=== PATIENT | male | born 1985 | race Hispanic/Latino ===

== ENCOUNTER 2018-02-07 13:17 | Emergency (ER) | payer OTHER ==
--- NOTE | 2018-02-07 14:54 | RAD REPORT ---
EXAM DESCRIPTION: CT - Head Brain Wo Cont - 02/07/2018 2:26 pm CLINICAL HISTORY: Multiple seizures, seizure history, trauma COMPARISON: CT head April 2015 MRI June 2016 TECHNIQUE: Axial 5 mm thick images of the head were obtained without IV contrast. All CT scans are performed using dose optimization technique as appropriate and may include automated exposure control or mA/KV adjustment according to patient size. FINDINGS: No intracranial hemorrhage, mass, edema or shift of mid-line structures. No acute infarcti on changes. No cortical edema or sulcal effacement. 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 N o ventriculomegaly. Posttraumatic, developmental or ischemic changes cause cerebellum volume loss. Th is is a stable pattern. Mastoid air cells and visualized portions of the paranasal sinuses are clear. No acute bony findings. IMPRESSION: No acute intracranial finding. The above detailed findings are similar to June 2016.
--- NOTE | 2018-02-07 15:01 | ER ---
Nurse's Notes [facility] Name: Shan Faye Age: 32 yrs Sex: Male : 1985 Arrival Date: 02/07/2018 Time: 13:19 Bed 4 Private MD: Diagnosis: Epilepsy and recurrent seizures Presentation: 02/07 13:19 Presenting complaint: EMS states: pt was at work had multiple seizures, he did have a tw2 seizure when we got him, they are very violent seizures, no postictal phase, Keppra was just upped last week, mother should be on the way here shortly, vs stable. Transition of care: patient was not received from another setting of care. Onset of symptoms was February 07, 2018. Initial Sepsis Screen: Does the patient meet any 2 criteria? No. Patient's initial sepsis screen is negative. Does the patient have a suspected source of infection? No. Patient's initial sepsis screen is negative. Care prior to arrival: IV initiated. 20 GA, in the left antecubital area. 13:19 Method Of Arrival: EMS: [facility] tw2 13:19 Acuity: PAULINE 3 tw2 Historical: - Allergies: 13:23 No Known Drug Allergies; tw2 - Home Meds: 13:23 buspirone 5 mg Oral tab 1 tab 3 times per day [Active]; citalopram 10 mg tab 1 tab once tw2 daily [Active]; divalproex 500 mg Oral Tb24 2 tabs once daily [Active]; olanzapine 5 mg Oral TbDL 2 tabs once daily [Active]; - PMHx: 13:23 Anxiety; BRAIN DISORDER, ONE SIDE MORE DEVELOPED THAN THE OTHER; CVA (1993); tw2 Depression; WHEELCHAIR BOUND, CAN AMBULATE WITH ASSITANCE. WEAKNESS; Seizures; - Immunization history:: Adult Immunizations up to date. - Social history:: Smoking status: Patient/guardian denies using tobacco. Screenin:22 Abuse screen: Denies threats or abuse. Nutritional screening: No deficits noted. tw2 Tuberculosis screening: No symptoms or risk factors identified. Fall Risk None identified. Assessment: 13:44 General: Appears in no apparent distress. Behavior is calm, appropriate for age. Pain: tw2 Denies pain. Neuro: Level of Consciousness is awake, alert, obeys commands, Oriented to person, his baseline, d/t his past medical history. Cardiovascular: Denies chest pain, shortness of breath, Heart tones S1 S2 Capillary refill < 3 seconds Patient's skin is warm and dry. Respiratory: Airway is patent Respiratory effort is even, unlabored, Respiratory pattern is regular, symmetrical. GI: No signs and/or symptoms were reported involving the gastrointestinal system. : No signs and/or symptoms were reported regarding the genitourinary system. EENT: No signs and/or symptoms were reported regarding the EENT system. Derm: No signs and/or symptoms reported regarding the dermatologic system. Skin is intact, is healthy with good turgor, Skin temperature is warm. Musculoskeletal: to left side of the [place]head. 14:44 Reassessment: Patient appears in no apparent distress at this time. No changes from tw2 previously documented assessment. Patient and/or family updated on plan of care and expected duration. Pain level reassessed. 15:10 Reassessment: Patient appears in no apparent distress at this time. No changes from tw2 previously documented assessment. Patient and/or family updated on plan of care and expected duration. Pain level reassessed. Vital Signs: 13:21 BP 114 / 82; Pulse 79; Resp 16; Temp 98.5(O); Pulse Ox 97% on R/A; Weight 65.77 kg; tw2 Height 5 ft. 6 in. (167.64 cm); Pain 0/10; 14:43 BP 105 / 73; Pulse 72; Resp 17; Pulse Ox 97% on R/A; tw2 15:10 BP 109 / 76; Pulse 68; Resp 15; Pulse Ox 98% on R/A; tw2 13:21 Body Mass Index 23.40 (65.77 kg, 167.64 cm) tw2 [place] Coma Score: 13:46 Eye Response: spontaneous(4). Verbal Response: oriented(5). Motor Response: obeys tw2 commands(6). Total: 15. ED Course: 13:19 Patient arrived in ED. tw2 13:21 Triage completed. tw2 13:21 Call light in reach. Side rails up X2. Seizure precautions initiated. 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 Pulse ox on. NIBP on. 13:24 Arm band placed on. tw2 13:26 Farooq Byrnes MD is Attending Physician. gs 13:36 Smith, Talia, RN is Primary Nurse. tw2 13:43 Maintain EMS IV. Dressing intact. Good blood return noted. Site clean \T\ dry. Gauge \T\ tw 2 site: 20g LEFT AC. 14:26 CT Head Brain wo Cont In Process Unspecified. EDMS 15:01 Satinder Arreola MD is Referral Physician. gs 15:10 No provider procedures requiring assistance completed. tw2 15:17 IV discontinued, intact, bleeding controlled, No redness/swelling at site. Pressure tw2 dressing applied. Administered Medications: No medications were administered Outcome: 15:01 Discharge ordered by MD. gs 15:17 Discharged to home ambulatory, with family. tw2 15:17 Condition: stable 15:17 Discharge instructions given to patient, family, Instructed on discharge instructions, follow up and referral plans. Demonstrated understanding of instructions, follow-up care. 15:17 Patient left the ED. tw2 Signatures: Dispatcher [employer] EDMS Talia Smith RN RN tw2 Farooq Byrnes MD MD Corrections: (The following items were deleted from the chart) 14:45 14:44 Reassessment: Patient appears in no apparent distress at this time. No changes tw2 from previously documented assessment. Patient and/or family updated on plan of care and expected duration. Pain level reassessed. Patient is alert, oriented x 3, equal unlabored respirations, skin warm/dry/pink. tw2
--- NOTE | 2018-02-07 15:02 | EDPHYS ---
Physician Documentation [facility] Name: Shan Faye Age: 32 yrs Sex: Male : 1985 Arrival Date: 02/07/2018 Time: 13:19 Bed 4 Private MD: ED Physician Farooq Byrnes HPI: 02/07 15:26 This 32 yrs old Male presents to ER via EMS with complaints of Seizure. gs 15:26 The patient presents with a history of multiple seizures, a total of 2. Character of gs seizure(s): Motor activity: generalized. Seizure onset: just prior to arrival. Seizure Hx: Last seizure: The patient's last seizure was approximately 1 month(s) ago. Associated injury: Head/face: abrasion, contusion. The patient has experienced similar episodes in the past, multiple times. Historical: - Allergies: 13:23 No Known Drug Allergies; tw2 - Home Meds: 13:23 buspirone 5 mg Oral tab 1 tab 3 times per day [Active]; citalopram 10 mg tab 1 tab once tw2 daily [Active]; divalproex 500 mg Oral Tb24 2 tabs once daily [Active]; olanzapine 5 mg Oral TbDL 2 tabs once daily [Active]; - PMHx: 13:23 Anxiety; BRAIN DISORDER, ONE SIDE MORE DEVELOPED THAN THE OTHER; CVA (1993); tw2 Depression; WHEELCHAIR BOUND, CAN AMBULATE WITH ASSITANCE. WEAKNESS; Seizures; - Immunization history:: Adult Immunizations up to date. - Social history:: Smoking status: Patient/guardian denies using tobacco. ROS: 15:26 All other systems are negative. gs Exam: 15:26 Eyes: Pupils equal round and reactive to light, extra-ocular motions intact. Lids and gs lashes normal. Conjunctiva and sclera are non-icteric and not injected. Cornea within normal limits. Periorbital areas with no swelling, redness, or edema. ENT: Nares patent. No nasal discharge, no septal abnormalities noted. Tympanic membranes are normal and external auditory canals are clear. Oropharynx with no redness, swelling, or masses, exudates, or evidence of obstruction, uvula midline. Mucous membranes moist. Neck: Trachea midline, no thyromegaly or masses palpated, and no cervical lymphadenopathy. Supple, full range of motion without nuchal rigidity, or vertebral point tenderness. No Meningismus. Chest/axilla: Normal chest wall appearance and motion. Nontender with no deformity. No lesions are appreciated. Cardiovascular: Regular rate and rhythm with a normal S1 and S2. No gallops, murmurs, or rubs. Normal PMI, no JVD. No pulse deficits. Respiratory: Lungs have equal breath sounds bilaterally, clear to auscultation and percussion. No rales, rhonchi or wheezes noted. No increased work of breathing, no retractions or nasal flaring. Abdomen/GI: Soft, non-tender, with normal bowel sounds. No distension or tympany. No guarding or rebound. No evidence of tenderness throughout. Back: No spinal tenderness. No costovertebral tenderness. Full range of motion. Skin: Warm, dry with normal turgor. Normal color with no rashes, no lesions, and no evidence of cellulitis. MS/ Extremity: Pulses equal, no cyanosis. Neurovascular intact. Full, normal range of motion. Neuro: Awake and alert, GCS 15, oriented to person, place, time, and situation. Cranial nerves II-XII grossly intact. Motor strength 5/5 in all extremities. Sensory grossly intact. Cerebellar exam normal. Normal gait. 15:26 Constitutional: The patient appears alert, awake. 15:26 Head/face: Noted is abrasion(s), that are mild. 15:26 Eyes: no acute changes, wide spaced. 15:37 ECG was reviewed by the Attending Physician. Vital Signs: 13:21 BP 114 / 82; Pulse 79; Resp 16; Temp 98.5(O); Pulse Ox 97% on R/A; Weight 65.77 kg; tw2 Height 5 ft. 6 in. (167.64 cm); Pain 0/10; 14:43 BP 105 / 73; Pulse 72; Resp 17; Pulse Ox 97% on R/A; tw2 15:10 BP 109 / 76; Pulse 68; Resp 15; Pulse Ox 98% on R/A; tw2 13:21 Body Mass Index 23.40 (65.77 kg, 167.64 cm) tw2 [place] Coma Score: 13:46 Eye Response: spontaneous(4). Verbal Response: oriented(5). Motor Response: obeys tw2 commands(6). Total: 15. MDM: 13:43 Patient medically screened. gs 15:26 Differential diagnosis: seizure, head injury. Data reviewed: vital signs, nurses notes. gs Response to treatment: the patient's symptoms have resolved after treatment, and as a result, I will discharge patient. Physician consultation: Satinder Arreola MD and will see patient in office, next week, would like medications started, increase keppra 1.5 bid. 15:37 Differential diagnosis: cardiac arrhythmia. 02/07 13:46 Order name: CT Head Brain wo Cont; Complete Time: 15:00 EC:37 Rate is 74 beats/min. Rhythm is regular. [place] interval is normal. QRS interval is normal. gs No ST changes noted. Clinical impression: Normal ECG. Interpreted by me. Administered Medications: No medications were administered Disposition: 02/07/18 15:01 Discharged to Home. Impression: Epilepsy and recurrent seizures. - Condition is Stable. - Discharge Instructions: Seizure, Adult. - Work release form, Medication Reconciliation Form, Thank You Letter, Antibiotic Education, Prescription Opioid Use form. - Follow up: Satinder Arreola MD; When: 2 - 3 days; Reason: Re-evaluation by your physician. Signatures: Dispatcher [employer] Talia Ibrahim RN RN tw2 Farooq Byrnes MD MD Corrections: (The following items were deleted from the chart) 15:17 15:01 02/07/2018 15:01 Discharged to Home. Impression: Epilepsy and recurrent seizures. tw2 Condition is Stable. Forms are Medication Reconciliation Form, Thank You Letter, Antibiotic Education, Prescription Opioid Use. Follow up: Satinder Arreola; When: 2 - 3 days; Reason: Re-evaluation by your physician. gs
[2018-02-07 15:21] VITALS: TEMP 98.5
[2018-02-07 15:23] VITALS: BP 109/76; O2SAT 98
--- NOTE | 2018-02-07 17:57 | EKG ---
Test Date: 2018-02-07 Test Time: 13:31:08 [place] Regulator: SIRI MEASUREMENT RESULTS: Intervals: Rate: 74 DE: 136 QRSD: 84 QT: 378 QTc: 419 [place]: P: 49 DE: 136 QRS: 35 T: 43 INTERPRETIVE STATEMENTS: Normal sinus rhythm Normal ECG Compared to ECG 06/09/2016 00:25:02 Myocardial infarct finding no longer present Electronically Signed On 02-07-18 17:57:02 CDT by Tony Wallace
== END 2018-02-07 15:17 | disposition home or self-care (01) ==
LOC: ER 13:17
DX: G40.802 Other epilepsy, not intractable, without status epilepticus (principal); F41.9 Anxiety disorder, unspecified; F32.9 Major depressive disorder, single episode, unspecified; Z86.73 Personal history of transient ischemic attack (TIA), and cerebral infarction without residual deficits
CPT/HCPCS: 70450; 93005; 99284

== ENCOUNTER 2018-03-01 11:18 | Inpatient (IN) | payer OTHER ==
[2018-03-01] MEDS ORDERED: LORazepam 2 MG/ML VIAL ONE (11:30)
[2018-03-01] MEDS ORDERED: levETIRAcetam 1,000 MG in NA CHLORIDE 0.9% 100 ML IV ONE (11:45)
[2018-03-01] MEDS ORDERED: NA CHLORIDE 0.9% 1,000 ML ONE (11:54)
[2018-03-01 12:13] LABS: Absolute Lymphocytes (CBC) 2.6 K/uL (0.7-4.9); Absolute Monocytes 0.3 K/uL (0.1-1.3); Absolute Neutrophil 2.9 K/uL (1.8-8.0); Basophils % 0.5 % (0-1.3); Eosinophils % 2.1 % (0-4.4); MCH 28.2 pg (27.0-35.0); MPV 9.2 fL (7.6-11.3); Monocytes % 4.9 % (3.3-12.3); RBC Red Blood Cell Count 5.35 M/uL (4.33-5.43)
[2018-03-01 12:25] LABS: Bicarbonate 28 mEq/L (21-31); Glucose Level 90 mg/dL (65-120); Sodium Level 140 mEq/L (135-145)
[2018-03-01 12:26] LABS: BUN Blood Urea Nitrogen 6 mg/dL (6-20)
--- NOTE | 2018-03-01 12:44 | EDPHYS ---
Physician Documentation [facility] Name: Shan Faye Age: 32 yrs Sex: Male : 1985 Arrival Date: 03/01/2018 Time: 11:17 Bed 2 Private MD: ED Physician Farooq Byrnes HPI: 03/01 13:40 This 32 yrs old Male presents to ER via Stret[facility] with complaints of Seizure. gs 13:40 The patient presents with a history of multiple seizures, a total of 2. Character of gs seizure(s): Loss of consciousness: the patient experienced loss of consciousness, Motor activity: generalized, Incontinence: none. Seizure onset: just prior to arrival. Seizure Hx: Original onset: longstanding, Last seizure: The patient's last seizure was approximately 5 day(s) ago. Associated injury: The patient did not suffer any apparent associated injury. Current symptoms: confusion. The patient has experienced similar episodes in the past, chronically. Historical: - Allergies: 11:23 No Known Allergies; ph - Home Meds: 11:23 buspirone 5 mg Oral tab 1 tab 3 times per day [Active]; citalopram 10 mg tab 1 tab once ph daily [Active]; divalproex 500 mg Oral Tb24 2 tabs once daily [Active]; olanzapine 5 mg Oral TbDL 2 tabs once daily [Active]; - PMHx: 11:23 Anxiety; BRAIN DISORDER, ONE SIDE MORE DEVELOPED THAN THE OTHER; CVA (1993); ph Depression; Seizures; WHEELCHAIR BOUND, CAN AMBULATE WITH ASSITANCE. WEAKNESS; - Immunization history:: Adult Immunizations unknown. - Social history:: Smoking status: Patient/guardian denies using tobacco. - Ebola Screening: : No symptoms or risks identified at this time. ROS: 13:40 Constitutional: Negative for fever. gs 13:40 All other systems are negative. Exam: 13:40 ENT: Nares patent. No nasal discharge, no septal abnormalities noted. Tympanic gs membranes are normal and external auditory canals are clear. Oropharynx with no redness, swelling, or masses, exudates, or evidence of obstruction, uvula midline. Mucous membranes moist. Neck: Trachea midline, no thyromegaly or masses palpated, and no cervical lymphadenopathy. Supple, full range of motion without nuchal rigidity, or vertebral point tenderness. No Meningismus. Chest/axilla: Normal chest wall appearance and motion. Nontender with no deformity. No lesions are appreciated. Cardiovascular: Regular rate and rhythm with a normal S1 and S2. No gallops, murmurs, or rubs. Normal PMI, no JVD. No pulse deficits. Respiratory: Lungs have equal breath sounds bilaterally, clear to auscultation and percussion. No rales, rhonchi or wheezes noted. No increased work of breathing, no retractions or nasal flaring. Abdomen/GI: Soft, non-tender, with normal bowel sounds. No distension or tympany. No guarding or rebound. No evidence of tenderness throughout. Back: No spinal tenderness. No costovertebral tenderness. Full range of motion. Skin: Warm, dry with normal turgor. Normal color with no rashes, no lesions, and no evidence of cellulitis. MS/ Extremity: Pulses equal, no cyanosis. Neurovascular intact. Full, normal range of motion. 13:40 Constitutional: The patient appears alert, awake. 13:40 Head/face: Exam is negative for acute changes. 13:40 Eyes: Exam is negative for acute changes. 13:40 Neuro: Mentation: slow to respond, confused, Motor: moves all fours, Sensation: no obvious gross deficits. Vital Signs: 11:17 Pulse 72; Resp 14; Pulse Ox 97% on R/A; Weight 74.39 kg; Height 5 ft. 5 in. (165.10 cm);ss 11:22 BP 134 / 86; Pulse 65; Resp 18; Temp 97.6; Pulse Ox 97% on R/A; ph 12:30 BP 118 / 76; Pulse 64; Resp 18; Pulse Ox 99% on Non-rebreather mask; ph 13:30 BP 122 / 84; Pulse 72; Resp 18; Pulse Ox 98% on R/A; ph 15:14 BP 102 / 73; Pulse 92; Resp 16; Temp 97.8; Pulse Ox 98% on R/A; ph 11:17 Body Mass Index 27.29 (74.39 kg, 165.10 cm) [place] Coma Score: 11:15 Eye Response: to voice(3). Verbal Response: none(1). Motor Response: withdraws from ph pain(4). Total: 8. MDM: 11:30 Patient medically screened. gs 13:40 Differential diagnosis: cardiac arrhythmia, seizure, status epilepticus. Data reviewed: vital signs, nurses notes. Response to treatment: the patient's symptoms have mildly improved after treatment, and as a result, I will admit patient. 03/01 11:36 Order name: CBC with Diff; Complete Time: 12:31 03/01 11:36 Order name: Basic Metabolic Panel; Complete Time: 12:31 03/01 15:24 Order name: MRI - Brain Wo Cont ph Administered Medications: 11:31 Drug: Ativan 2 mg Route: IVP; Site: left antecubital; ph 12:00 Follow up: Response: No adverse reaction ph 11:45 Drug: Keppra 1000 mg Route: IV; Rate: calculated rate; Site: left antecubital; ph 12:44 Follow up: Response: No adverse reaction; IV Status: Completed infusion sg 11:49 Drug: NS 0.9% 1000 ml Route: IV; Rate: 125 ml/hr; Site: left antecubital; ph 15:30 Follow up: Response: No adverse reaction; IV Status: Infusion continued upon admission ph Disposition: 03/01/18 12:57 Hospitalization ordered by Elyse Booth for Inpatient Admission. Preliminary diagnosis is Epilepsy and recurrent seizures. - Bed requested for Intensive Care Unit. - Status is Inpatient Admission. ss - Condition is Stable. - Problem is new. - Symptoms have improved. UTI on Admission? No Signatures: Dispatcher [employer] EDMS Nuria Larson RN RN Shayna Huerta RN RN Lea Pandey RN RN Farooq Byrnes MD MD Dano Campbell RN Corrections: (The following items were deleted from the chart) 12:54 12:43 03/01/2018 12:43 Discharged to Home. Impression: Epilepsy and recurrent seizures. gs Condition is Stable. Forms are Medication Reconciliation Form, Thank You Letter, Antibiotic Education, Prescription Opioid Use. Follow up: Satinder Arreola; When: 1 - 2 days; Reason: Re-evaluation by your physician. 13:10 12:57 Hospitalization Ordered by Elyse Booth MD for Observation. Preliminary diagnosis gs is Epilepsy and recurrent seizures. Bed requested for Intensive Care Unit. Status is Observation. Condition is Stable. Problem is new. Symptoms have improved. UTI on Admission? No. gs 14:48 13:10 03/01/2018 12:57 Hospitalization Ordered by Elyse Booth MD for Inpatient dw Admission. Preliminary diagnosis is Epilepsy and recurrent seizures. Bed requested for Intensive Care Unit. Status is Inpatient Admission. Condition is Stable. Problem is new. Symptoms have improved. UTI on Admission? No. gs 15:54 14:48 03/01/2018 12:57 Hospitalization Ordered by Elyse Booth MD for Inpatient ss Admission. Preliminary diagnosis is Epilepsy and recurrent seizures. Bed requested for Intensive Care Unit. Status is Inpatient Admission. Condition is Stable. Problem is new. Symptoms have improved. UTI on Admission? No. dw
--- NOTE | 2018-03-01 12:44 | ER ---
Nurse's Notes [facility] Name: Shan Faye Age: 32 yrs Sex: Male : 1985 Arrival Date: 03/01/2018 Time: 11:17 Bed 2 Private MD: Diagnosis: Epilepsy and recurrent seizures Presentation: 03/01 11:18 Presenting complaint: Medical staff report that patient was having an EEG test this ss morning when it was observed that patient had seizure like activity lasting 10 seconds. Patient has been post ictal since. On arrival to ED while assessing patient. Pt had another seizure lasting 3 seconds. Mother remains at bedside. Mother states patient did not take seizure medications this morning due to tests. Transition of care: patient was not received from another setting of care. Onset of symptoms was March 01, 2018. Risk Assessment: Do you want to hurt yourself or someone else? Other: unable to assess as patient is unresponsive/ post ictal. Initial Sepsis Screen: Does the patient meet any 2 criteria? Does the patient have a suspected source of infection? No. Patient's initial sepsis screen is negative. Care prior to arrival: EEG performed, Dr. Arreola (neurologist) notified. 11:18 Method Of Arrival: Stretcher ss 11:18 Acuity: PAULINE 2 ss Historical: - Allergies: 11:23 No Known Allergies; ph - Home Meds: 11:23 buspirone 5 mg Oral tab 1 tab 3 times per day [Active]; citalopram 10 mg tab 1 tab once ph daily [Active]; divalproex 500 mg Oral Tb24 2 tabs once daily [Active]; olanzapine 5 mg Oral TbDL 2 tabs once daily [Active]; - PMHx: 11:23 Anxiety; BRAIN DISORDER, ONE SIDE MORE DEVELOPED THAN THE OTHER; CVA (1993); ph Depression; Seizures; WHEELCHAIR BOUND, CAN AMBULATE WITH ASSITANCE. WEAKNESS; - Immunization history:: Adult Immunizations unknown. - Social history:: Smoking status: Patient/guardian denies using tobacco. - Ebola Screening: : No symptoms or risks identified at this time. Screenin:35 Abuse screen: Denies threats or abuse. Denies injuries from another. Nutritional ph screening: No deficits noted. Tuberculosis screening: No symptoms or risk factors identified. Fall Risk Fall in past 12 months (25 points). Secondary diagnosis (15 points) seizures, IV access (20 points). Ambulatory Aid- None/Bed Rest/Nurse Assist (0 pts). Gait- Normal/Bed Rest/Wheelchair (0 pts) Mental Status- Oriented to own ability (0 pts). Total English Fall Scale indicates High Risk Score (45 or more points). Fall prevention measures have been instituted. Side Rails Up X 2 Placed Close to Nursing Station Frequent Obs/Assessments Occuring Family Present and informed to notify staff if the need to leave the bedside As available patient and family educated on Fall Prevention Program and Strategies. Assessment: 11:15 Neuro: Seizure activity noted at this time. Type of seizure: grand mal seizure. Seizure ph lasted approximately .25 minutes. Patient is post-ictal at this time. 11:26 General: Appears in no apparent distress. well groomed, Behavior is drowsy, quiet. ph Pain: Unable to use pain scale. Patient is unresponsive. (pt post-ictal). Neuro: Level of Consciousness is post ictal, Seizure activity reported prior to arrival. Patient is post-ictal at this time. Cardiovascular: Capillary refill < 3 seconds in bilateral fingers Patient's skin is warm and dry. Respiratory: Airway is patent Respiratory effort is even, unlabored, Respiratory pattern is regular, symmetrical. GI: No signs and/or symptoms were reported involving the gastrointestinal system. Derm: Skin is healthy with good turgor, Skin is pink, warm \T\ dry. Musculoskeletal: Circulation, motion, and sensation intact. 11:35 Reassessment: Dr Byrnes at bedside. Neuro: Seizure activity noted at this time. Type of ph seizure: grand mal seizure. Seizure lasted approximately .25 minutes. 11:42 Neuro: Seizure activity noted at this time. Type of seizure: grand mal seizure. Seizure ph lasted approximately .25 minutes. Patient is post-ictal at this time. 11:45 Reassessment: Keppra received from pharmacy, administered via IV per provider order. ph 12:45 Reassessment: Patient appears in no apparent distress at this time. pt mother/family sg reports pt experienced seizure like activity lasting about 15 seconds, pt is awake at this time, answered yes when asked if doing ok. notified. 13:04 Reassessment: pt mother/family notified me of pt seizure like activity, o2 sat noted to sg be 88 percent, a NRB applied at 15 lpm, o2 sats increased to 100 percent, seizure acitivity lasting 20 seconds, notified, awaiting orders at this time. 14:00 Reassessment: Patient appears in no apparent distress at this time. Patient and/or ph family updated on plan of care and expected duration. Pain level reassessed. Patient is alert, oriented x 3, equal unlabored respirations, skin warm/dry/pink. Pt resting quietly, no further seizure activity noted, mother at bedside. 15:34 Reassessment: Patient appears in no apparent distress at this time. Patient and/or ph family updated on plan of care and expected duration. Pain level reassessed. Report called to Veena FERRO. Vital Signs: 11:17 Pulse 72; Resp 14; Pulse Ox 97% on R/A; Weight 74.39 kg; Height 5 ft. 5 in. (165.10 cm);ss 11:22 BP 134 / 86; Pulse 65; Resp 18; Temp 97.6; Pulse Ox 97% on R/A; ph 12:30 BP 118 / 76; Pulse 64; Resp 18; Pulse Ox 99% on Non-rebreather mask; ph 13:30 BP 122 / 84; Pulse 72; Resp 18; Pulse Ox 98% on R/A; ph 15:14 BP 102 / 73; Pulse 92; Resp 16; Temp 97.8; Pulse Ox 98% on R/A; ph 11:17 Body Mass Index 27.29 (74.39 kg, 165.10 cm) ss [place] Coma Score: 11:15 Eye Response: to voice(3). Verbal Response: none(1). Motor Response: withdraws from ph pain(4). Total: 8. ED Course: 11:17 Patient arrived in ED. ss 11:20 Inserted saline lock: 20 gauge in left antecubital area, using aseptic technique. Blood ph collected. Oxygen administration via non-rebreather mask \T\ 15L/min. 11:22 Lea Pandey RN is Primary Nurse. ph 11:25 Arm band placed on. ph 11:26 Triage completed. ss 11:30 Farooq Byrnes MD is Attending Physician. gs 11:36 Patient has correct armband on for positive identification. Placed in gown. Bed in low ph position. Call light in reach. Side rails up X2. Seizure precautions initiated. environmental monitoring technician on. Pulse ox on. NIBP on. Warm blanket given. 12:43 Satinder Arreola MD is Referral Physician. gs 12:57 Elyse Booth MD is Hospitalizing Provider. gs 15:34 No provider procedures requiring assistance completed. Patient admitted, IV remains in ph place. Administered Medications: 11:31 Drug: Ativan 2 mg Route: IVP; Site: left antecubital; ph 12:00 Follow up: Response: No adverse reaction ph 11:45 Drug: Keppra 1000 mg Route: IV; Rate: calculated rate; Site: left antecubital; ph 12:44 Follow up: Response: No adverse reaction; IV Status: Completed infusion sg 11:49 Drug: NS 0.9% 1000 ml Route: IV; Rate: 125 ml/hr; Site: left antecubital; ph 15:30 Follow up: Response: No adverse reaction; IV Status: Infusion continued upon admission ph Outcome: 12:43 Discharge ordered by MD. gs 12:57 Decision to Hospitalize by Provider. gs 15:38 Admitted to ICU accompanied by nurse, accompanied by tech, family with patient, via ph stretcher, room 6, on monitor, with chart, Report called to Veena FERRO 15:38 Condition: stable 15:38 Instructed on the need for admit. 15:54 Patient left the ED. Signatures: Dano Campbell RN RN Shayna Huerta RN RN Lea Pandey RN RN Byrnes, MD LILLIAN Trivedi Corrections: (The following items were deleted from the chart) 11:37 11:22 BP 134 / 86; Pulse 65bpm; Resp 18bpm; Pulse Ox 97% RA; ph ph 11:46 11:42 Neuro: Seizure activity noted at this time. Type of seizure: grand mal seizure. ph Seizure lasted approximately .25 minutes. Patient is post-ictal at this time. ph
[2018-03-01] MEDS ORDERED: ONDANSETRON 4 MG/2 ML VIAL IV PRN (13:44)
[2018-03-01] MEDS ORDERED: ACETAMINOPHEN 500 MG TAB PO PRN (13:44)
[2018-03-01] MEDS ORDERED: LORazepam 2 MG/ML VIAL IV PRN (13:49)
[2018-03-01] MEDS: NA CHLORIDE 0.9% 1,000 ML IV SCH (14:00)
[2018-03-01 16:09] VITALS: BMI 27.3
[2018-03-01] MEDS ORDERED: PERAMPANEL 2 MG PO SCH (17:00)
[2018-03-01] MEDS: ENOXAPARIN 40 MG/0.4 ML SQ SCH (17:06)
[2018-03-01] MEDS ORDERED: LURASIDONE HCL PO SCH (21:00)
[2018-03-01] MEDS: BUSPIRONE HCL 5 MG TABLET PO SCH (21:34)
--- NOTE | 2018-03-01 23:24 | RAD REPORT ---
EXAM DESCRIPTION: MRI - Brain Wo Cont - 03/01/2018 9:05 pm CLINICAL HISTORY: Altered mental status, seizure like activity COMPARISON: CT head February 07, MR brain June 2016 TECHNIQUE: Sagittal T1-weighted images were obtained along with axial PD, heavily T2-weighted and T2 -FLAIR images. Axial DWI and ADC mapping sequences were also obtained along with coronal heavily T2-w eighted images. FINDINGS: Exam has very substantial motion degradation. No intracranial hemorrhage. No mass effect, edema or shift of midline structures. No acute infarction changes are present. 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 Focal defect in the right cereb ellum is from prior injury or ischemia. This is unchanged from 2016. No ventriculomegaly. Signal void s are seen as a normal finding in the major intracranial vessels. No acute globe or orbital content abnormality. Mastoid air cells and paranasal sinuses are clear. IMPRESSION: No acute intracranial finding. No significant change back to June 2016.
--- NOTE | 2018-03-02 02:19 | HP ---
Date of Admission: 03/01/2018 Primary Care Physician: Dr. Allen. Consultants: Dr. Arreola, Neurology. Chief Complaint: Seizure. 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 His normal seizures, which are quite spread apart, are tonic-clonic followed with posti ctal state. The patient does, however, have a history of some pseudoseizures as well. On the day of admission, patient was in the EEG lab, getting an outpatient EEG when he had 2 seizures back to back . The patient was transferred to the ER. He was loaded with Keppra 1 g and given Ativan 2 mg and hi s condition improved. The patient did have 1 other seizure requiring Ativan and has had multiple epi sodes of pseudoseizures according to the nursing staff. The patient will stop jerking when they ask him a question or take off the oxygen. The patient's symptoms are constant, moderate, progressively worsening. No alleviating or aggravating factors. The patient's medication was recently adjusted. His lab workup was essentially normal. The patient was then referred for admission. When seen in e ER, the patient was asleep, however, arousable and cooperative with exam. Past Medical History: Seizure disorder, history of stroke in the past at the age of 8 resulting in r ight-sided weakness due to congenital malformation. Past Surgical History: Bone biopsy in the leg as a child, which was negative, cholecystectomy. Allergies: NO KNOWN DRUG ALLERGIES. Medications: List reviewed. Social History: The patient denies any alcohol use, tobacco use, or illicit drug use. The patient l ramone at home with his mother, who is his primary care provider. Family History: No significant family history of any medical conditions according to the patient. M other confirms no family history. Grandparents of old age. Review of Systems: An 11-point system reviewed, negative except as per HPI. Physical Examination: Vital Signs: Pulse 72, respirations 14, O2 of 97%, blood pressure 134/86. General: Awake, alert, oriented x3. Some mild distress. Somewhat lethargic male. HEENT: Normocephalic, atraumatic. PERRLA. EOMI. Moist mucous membranes. Oropharynx is clear. Po or dentition. Conjunctivae anicteric. Neck: Supple. No JVD. Trachea midline. CV: S1, S2. No murmurs. Regular rate and rhythm. Peripheral pulses present. Respiratory: Clear to auscultation bilaterally. No wheezing. No stridor. No use of accessory musc les. Gastrointestinal: Abdomen is soft, nontender, nondistended. Positive bowel sounds. No guarding or rigidity. Extremities: No clubbing, cyanosis, or edema. No calf tenderness. Neuro: Cranial nerves 2 through 12 intact grossly. No focal neurological deficit. Speech is compre hensible. Skin: No rashes. Normal skin turgor. Psych: Deferred. Laboratory Data: WBC 5.9, H and H 15.1 and 46, platelets 252, neutrophils 48%. Sodium 140, potassiu m 4, chloride 105, CO2 28, BUN 6, creatinine 0.91, glucose 90, calcium 9.5. Assessment: A 32-year-old male with; 1.Acute seizure, recurrent. The patient has been loaded with 1 g of Keppra. We will continue with Ativan p.r.n. for seizure activity. Dr. Arreola, the patient's neurologist, has been consulted. We will monitor closely in ICU setting. Seizure precautions. We will check Keppra level in a.m. 2.History of congenital malformation with stroke in the past with some residual right-sided weakness . 3.Gastrointestinal and deep venous thrombosis prophylaxis with PPI and Lovenox. Plan: We will admit the patient to ICU, place as inpatient. We will initiate IV fluids and cardiac telemetry. TING Voice ID: [id number]
[2018-03-02 04:56] LABS: Absolute Lymphocytes (CBC) 2.8 K/uL (0.7-4.9); Absolute Monocytes 0.3 K/uL (0.1-1.3); Absolute Neutrophil 2.7 K/uL (1.8-8.0); Basophils % 0.7 % (0-1.3); Eosinophils % 2.1 % (0-4.4); Hematocrit 42.8 % (39.6-49.0); Lymphocytes % 46.5 % (15.3-44.8); MCH 29.5 pg (27.0-35.0); MCV 85.7 fL (80-100); MPV 8.9 fL (7.6-11.3); Monocytes % 5.8 % (3.3-12.3); RBC Red Blood Cell Count 4.99 M/uL (4.33-5.43)
[2018-03-02 05:08] LABS: ALT/SGPT 24 IU/L (10-60); AST/SGOT 26 IU/L (10-42); Albumin 3.8 g/dL (3.2-5.5); Alkaline Phosphatase 43 IU/L (42-121); BUN Blood Urea Nitrogen 7 mg/dL (6-20); Bicarbonate 29 mEq/L (21-31); Bilirubin Total 1.3 mg/dL (0.3-1.2); Glucose Level 94 mg/dL (65-120); Potassium 3.7 mEq/L (3.6-5.0); Protein, Total 6.8 g/dL (6.0-8.3); Sodium Level 141 mEq/L (135-145)
[2018-03-02 08:34] VITALS: O2SAT 97
[2018-03-02] MEDS ORDERED: POTASSIUM CL SA 10 MEQ TAB PO ONE (09:00)
[2018-03-02] MEDS ORDERED: CITALOPRAM 10 MG TABLET PO SCH (09:00)
[2018-03-02] MEDS ORDERED: levETIRAcetam 500 MG TAB PO SCH ×2 (09:00→21:00)
[2018-03-02] MEDS: BUSPIRONE HCL 5 MG TABLET PO SCH ×2 (09:16→14:36)
[2018-03-02] MEDS: ENOXAPARIN 40 MG/0.4 ML SQ SCH (09:17)
[2018-03-02] MEDS: NA CHLORIDE 0.9% 1,000 ML IV SCH ×2 (09:26)
[2018-03-02 12:46] VITALS: BP 100/74; TEMP 96.9
--- NOTE | 2018-03-02 23:07 | CON ---
Reason For Consultation: Consultation called because of [id number] seizures. History Of Present Illness: Mr. Faye is a 32-year-old patient whom I saw in clinic for localization-related seizures and pseudoseizures. The patient was sent to [facility] for an EEG to increasing seizures with falls. While having the EEG, he had seizure-like activity. The technologist initially reported the event as epileptic seizure and the patient was sent to the emergency room. He had additional activity in the emergency room for seizure- like and was given a load of Keppra 1 g along with Ativan, which did improve his seizures. He did have additional seizures and was given another mg of Ativan and transferred to the ICU. It was noted that in the ICU, the patient had events that were more and more typical of pseudoseizures. As during the episodes, he did purposeful activity and responded appropriately to the nurses. His workup did include an EEG, which on review showed that the activity to be rhythmic temporal theta very brief without spike wave discharges during the patient's clinical event demonstrating the events not to be epileptic seizures. He did have a brain MRI, which showed no evidence of any acute or actually chronic ischemic change, although the patient was noted to have agenesis of the corpus callosum and right cerebellar chronic ischemia unchanged from 2016. Past Medical History: Localization-related seizures with a chronic right cerebellum ischemia with some right-sided incoordination and weakness. Surgical History: Bone biopsy of the leg and cholecystectomy. Allergies: NO KNOWN DRUG ALLERGIES. Family History: No seizures. Social History: The patient denied alcohol, tobacco, or IV drug use. Medications: He is taking Keppra 1125 mg twice daily at home and also Celexa 20 mg daily. Review of Systems: The patient's mom indicates episodes of sudden falls, which she attributes to seizures. Otherwise, no fevers, chills, nausea, vomiting, myalgias, arthralgias , headache, weight change, or rash. No psychiatric complaints. No gastrointestinal or genitourinary issues. Physical Examination: Vital Signs: Blood pressure ranged systolic 100-126/74-85, pulse ranged from 75 -87, temperature 97.3, respiratory rate 14 to 18, oxygen saturation 96% on room air, weight 164 pounds, height 5 feet 5 inches. HEENT: He does have usually shaped head with high frontal bossing of the forehead. Flat retracted appearing nose and his lower jaw is protruding forward. However, he has no acute head trauma. Sclerae anicteric. Oropharynx is moist and pink. Neck: Supple. Chest: Clear. Heart: Regular. Extremities: Show no edema, cyanosis, clubbing. Neurologic: Neurologically he has some incoordination and mild weakness in the right upper and lower extremity compared to the left side. Otherwise, no focal sensory or motor deficits. Does have some incoordination in the right upper and lower extremities. Gait, good stance and stride. Laboratory Studies: Complete blood count with differential is normal. Chemistries, all normal except slightly elevated total bilirubin of 1.3. Liver function studies are normal as well. Assessment: Mr. 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 The EEG did indicate his 1 event at least while the EEG was been done, had a pseudoseizure and multiple pseudoseizures were observed in the ICU. However, it is also possible that the patient may have had seizures not characterized by EEG. Plan: Continue with current doses of Keppra 1125 mg twice daily. The patient will be discharged home and follow up with Dr. Arreola in 1 month, we will have Keppra blood level at that point. The patient will keep an event diary. The patient was told to not drive or operate heavy machinery for at least 3 months from the date of last seizure. I told the importance to have a full night's rest, engage in regular exercise, avoid any extremes of hunger or thirst or extremes of temperature. She again will follow up as indicated. MAJOR/JSE Voice ID: [id number] Report ID: [id number] COURTNEY
--- NOTE | 2018-03-03 05:26 | DS ---
Date of Discharge: 03/02/2018 Consultants: Satinder Arreola M.D., with Neurology. Admitting Diagnoses: 1.Acute seizure, recurrent. 2.History of congenital malformation with stroke in the past, with right-sided residual weakness. Discharge Diagnoses: 1.Acute seizure disorder, improved with Keppra and Ativan. We will continue seizure precautions. E lectroencephalogram did show some seizure activity. 2.History of congenital malformation with resultant focal deficit in his right cerebellum and agenes is of the corpus callosum. Hospital Course: The patient is a 32-year-old male with known history of seizure disorder along with history of pseudoseizures which can be interrupted by interacting with the patient, who was in the E EG lab for an outpatient EEG when the patient suffered recurrent seizures. The patient was transferr ed to the ER. He was given Ativan, which improved his condition. The patient did, however, have a r ecurrent episode. He was loaded with 1 g of Keppra and improved. The patient was admitted to the [facility] to the ICU setting for close monitoring. The patient did require another set of Ativan for se izure. He did have multiple pseudoseizures which were noted by the nursing staff. The patient did w ell over the course of the hospital stay. His labs remained normal. The patient had MRI of the brai n done, which showed chronic changes. No acute changes or bleed. Dr. Arreola also evaluated the pa tient and cleared the patient for discharge on his home dose of medications. The patient was dischar [facility] home in a stable condition. Activity: Seizure precautions. No swimming, driving, heights, or operating heavy machinery. Condition: Stable. Diet: Regular. Followup: Follow up with primary care physician in 2 to 3 days. Follow up with neurologist, Dr. Carr, in 1 week. Return to ER for worsening condition. Medications: As per medication reconciliation list. Physical Examination: General: Awake, alert, and oriented x3. No acute distress. CV: S1, S2. No murmurs. Respiratory: Moving air well bilaterally. Abdomen: Soft, nontender, nondistended. Positive bowel sounds. Extremities: No clubbing, cyanosis, or edema. Neurologic: Nonfocal. Time Spent: Total time spent discharging the patient was 35 minutes. /TAYLORL Voice ID: [id number] Report ID: [id number]
== END 2018-03-02 14:55 | disposition home or self-care (01) | DRG 100 ==
LOC: ER 11:18 → ERHOLD 13:09 → 3RD-ICU 15:37 → 4TH 03-02 11:30
PROVIDERS: ADMIT Family Medicine; ATTEND Family Medicine
DX: G40.909 Epilepsy, unspecified, not intractable, without status epilepticus (principal); Q04.0 Congenital malformations of corpus callosum; I69.351 Hemiplegia and hemiparesis following cerebral infarction affecting right dominant side
CPT/HCPCS: 36415; 70551; 80048; 80053; 85025; 94760; 95819; 96361; 96365; 96375; 99285; J1650; J1953; J7030

== ENCOUNTER 2018-04-04 22:44 | Emergency (ER) | payer OTHER ==
[2018-04-04] MEDS ORDERED: LORazepam 2 MG/ML VIAL ONE (23:58)
[2018-04-05 00:02] LABS: Absolute Lymphocytes (CBC) 3.4 K/uL (0.7-4.9); Absolute Monocytes 0.5 K/uL (0.1-1.3); Absolute Neutrophil 3.4 K/uL (1.8-8.0); Basophils % 0.6 % (0-1.3); Eosinophils % 1.9 % (0-4.4); Hematocrit 44.5 % (39.6-49.0); Lymphocytes % 45.5 % (15.3-44.8); MCH 28.3 pg (27.0-35.0); MCV 84.9 fL (80-100); MPV 9.2 fL (7.6-11.3); Monocytes % 6.7 % (3.3-12.3); RBC Red Blood Cell Count 5.24 M/uL (4.33-5.43)
[2018-04-05 00:22] LABS: Barbiturates NEGATIVE (NEGATIVE); Benzodiazepines NEGATIVE (NEGATIVE); Cocaine NEGATIVE (NEGATIVE); METHAMPHETAM NEGATIVE (NEGATIVE); Methadone NEGATIVE (NEGATIVE); Opiates NEGATIVE (NEGATIVE); Phencyclidine NEGATIVE (NEGATIVE); THC Cannibis NEGATIVE (NEGATIVE)
[2018-04-05 00:23] LABS: Urine Blood NEGATIVE (NEG); Urine Glucose NEGATIVE (NEG); Urine Protein NEGATIVE (NEG); Urine Specific Gravity 1.015 (1.005-1.030)
[2018-04-05 00:28] LABS: BUN Blood Urea Nitrogen 8 mg/dL (7-18); Bicarbonate 27 mmol/L (21-32); Glucose Level 96 mg/dL (74-106); Potassium 3.4 mmol/L (3.5-5.1); Sodium Level 141 mmol/L (136-145)
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
--- NOTE | 2018-04-05 00:47 | EDPHYS ---
Physician Documentation [facility] Name: Shan Faye Age: 32 yrs Sex: Male : 1985 Arrival Date: 04/04/2018 Time: 22:46 Bed 16 Private MD: ED Physician Julio Knapp HPI: 04/04 23:54 This 32 yrs old Male presents to ER via Wheelchair with complaints of seizure .jr8 23:54 The patient presents with a history of multiple seizures. Seizure onset: just prior to 8 arrival. Seizure Hx: Original onset: longstanding, since childhood,\E\. The patient has experienced similar episodes in the past, chronically. The patient has not recently seen a physician. Mom stated that patient has had more seizures then normal today. Has been compliant with his medication. Patient currently alert and oriented to person, place, time, and event. No postictal state noted. Historical: - Allergies: 23:02 No Known Allergies; bb - Home Meds: 23:02 buspirone 5 mg Oral tab 1 tab 3 times per day [Active]; citalopram 20 mg oral tab 1 tab bb once daily [Active]; levetiracetam 750 mg oral Tb24 [Active]; Fycompa 4 mg oral tab 1 tab once daily [Active]; Latuda 40 mg oral tab 1 tab once daily [Active]; - PMHx: 23:02 Anxiety; BRAIN DISORDER, ONE SIDE MORE DEVELOPED THAN THE OTHER; CVA (1993); bb Depression; Seizures; WHEELCHAIR BOUND, CAN AMBULATE WITH ASSITANCE. WEAKNESS; - Immunization history:: Adult Immunizations up to date. - Social history:: Smoking status: Patient/guardian denies using tobacco. - Ebola Screening: : No symptoms or risks identified at this time. ROS: 23:54 Eyes: Negative for injury, pain, redness, and discharge, ENT: Negative for injury, jr8 pain, and discharge, Neck: Negative for injury, pain, and swelling, Cardiovascular: Negative for chest pain, palpitations, and edema, Respiratory: Negative for shortness of breath, cough, wheezing, and pleuritic chest pain, Abdomen/GI: Negative for abdominal pain, nausea, vomiting, diarrhea, and constipation, Back: Negative for injury and pain, MS/Extremity: Negative for injury and deformity, Skin: Negative for injury, rash, and discoloration. 23:54 Neuro: Positive for seizure activity. Exam: 23:54 Eyes: Pupils equal round and reactive to light, extra-ocular motions intact. Lids and jr8 lashes normal. Conjunctiva and sclera are non-icteric and not injected. Cornea within normal limits. Periorbital areas with no swelling, redness, or edema. ENT: Nares patent. No nasal discharge, no septal abnormalities noted. Tympanic membranes are normal and external auditory canals are clear. Oropharynx with no redness, swelling, or masses, exudates, or evidence of obstruction, uvula midline. Mucous membranes moist. Neck: Trachea midline, no thyromegaly or masses palpated, and no cervical lymphadenopathy. Supple, full range of motion without nuchal rigidity, or vertebral point tenderness. No Meningismus. Cardiovascular: Regular rate and rhythm with a normal S1 and S2. No gallops, murmurs, or rubs. Normal PMI, no JVD. No pulse deficits. Respiratory: Lungs have equal breath sounds bilaterally, clear to auscultation and percussion. No rales, rhonchi or wheezes noted. No increased work of breathing, no retractions or nasal flaring. Abdomen/GI: Soft, non-tender, with normal bowel sounds. No distension or tympany. No guarding or rebound. No evidence of tenderness throughout. Back: No spinal tenderness. No costovertebral tenderness. Full range of motion. Skin: Warm, dry with normal turgor. Normal color with no rashes, no lesions, and no evidence of cellulitis. MS/ Extremity: Pulses equal, no cyanosis. Neurovascular intact. Full, normal range of motion. Neuro: Awake and alert, GCS 15, oriented to person, place, time, and situation. Cranial nerves II-XII grossly intact. Motor strength 5/5 in all extremities. Sensory grossly intact. Cerebellar exam normal. Normal gait. 23:54 Constitutional: The patient appears in no acute distress, alert, awake, comfortable, non-toxic. Vital Signs: 23:02 BP 118 / 87; Pulse 70; Resp 16 S; Temp 97.7(TE); Pulse Ox 97% on R/A; Weight 77.11 kg bb (R); Height 5 ft. 5 in. (165.10 cm) (R); 04/05 00:34 BP 105 / 80; Pulse 68; Resp 18; Pulse Ox 100% on R/A; Pain 0/10; mg2 04/04 23:02 Body Mass Index 28.29 (77.11 kg, 165.10 cm) bb MDM: 04/04 23:12 Patient medically screened. [facility] 04/05 00:44 Data reviewed: vital signs, nurses notes, lab test result(s), and as a result, I will jr8 discharge patient. Data interpreted: Pulse oximetry: on room air is 100 %. Interpretation: normal. Counseling: I had a detailed discussion with the patient and/or guardian regarding: the historical points, exam findings, and any diagnostic results supporting the discharge/admit diagnosis, lab results, the need for outpatient follow up, a neurologist, to return to the emergency department if symptoms worsen or persist or if there are any questions or concerns that arise at home. Response to treatment: the patient's symptoms have resolved after treatment. ED course: Patient without seizures post treatment. Feeling well and wants to go home . 04/04 23:30 Order name: CBC with Diff; Complete Time: 00:28 04/04 23:30 Order name: Basic Metabolic Panel; Complete Time: 00:28 [facility] 04/04 23:30 Order name: UDS; Complete Time: 00:28 [facility] 04/04 23:30 Order name: Urine Dipstick-Ancillary (obtain specimen); Complete Time: 23:53 [facility] 04/04 23:52 Order name: Urine Dipstick--Ancillary (enter results); Complete Time: 00:28 mt Administered Medications: 00:00 Drug: Ativan 0.5 mg Route: IVP; Site: left antecubital; mg2 01:05 Follow up: Response: No adverse reaction bs1 Disposition: 04/05/18 00:46 Discharged to Home. Impression: Epilepsy and recurrent seizures. - Condition is Stable. - Discharge Instructions: Seizure, Adult. - Medication Reconciliation Form, Thank You Letter, Antibiotic Education, Prescription Opioid Use form. - Follow up: Satinder Arreola MD; When: 48 Hours; Reason: Recheck today's complaints, Continuance of care, Re-evaluation by your physician. - Problem is new. - Symptoms have improved. Addendum: 04/06/2018 01:16 Co-signature as Attending Physician, Julio Knapp MD I agree with the assessment and t w4 plan of care. Signatures: Dispatcher [employer] EDKate Snell, RN RN bb Jaron Sow PA PA jr8 Julio Knapp MD MD tw4 Rg Stack RN RN mg2 Krystina Friedman RN bs1 Corrections: (The following items were deleted from the chart) 04/05 01:12 00:46 04/05/2018 00:46 Discharged to Home. Impression: Epilepsy and recurrent seizures. mg2 Condition is Stable. Forms are Medication Reconciliation Form, Thank You Letter, Antibiotic Education, Prescription Opioid Use. Follow up: Satinder Arreola; When: 48 Hours; Reason: Recheck today's complaints, Continuance of care, Re-evaluation by your physician. Problem is new. Symptoms have improved. jr8
[2018-04-05 01:19] VITALS: TEMP 97.7
[2018-04-05 01:20] VITALS: BP 105/80; O2SAT 100
== END 2018-04-05 01:12 | disposition home or self-care (01) ==
LOC: ER 22:44
DX: G40.909 Epilepsy, unspecified, not intractable, without status epilepticus (principal)
CPT/HCPCS: 36415; 80048; 80307; 81003; 82962; 85025; 96374; 99283

== ENCOUNTER 2018-11-26 22:43 | Emergency (ER) | payer OTHER ==
[2018-11-26] MEDS ORDERED: HALOPERIDOL LACT 5 MG/ML INJ ONE (23:27)
[2018-11-26 23:47] LABS: Absolute Monocytes 0.3 K/uL (0.1-1.3); Absolute Neutrophil 3.2 K/uL (1.8-8.0); Basophils % 0.6 % (0-1.3); Hematocrit 46.6 % (39.6-49.0); Lymphocytes % 45.1 % (15.3-44.8); MPV 9.1 fL (7.6-11.3); Monocytes % 5.1 % (3.3-12.3)
[2018-11-26] MEDS ORDERED: LORazepam 2 MG/ML VIAL ONE (23:59)
[2018-11-27 00:01] LABS: Protime INR 0.93
[2018-11-27 00:06] LABS: ALT/SGPT 46 U/L (12-78); AST/SGOT 29 U/L (15-37); Albumin 4.1 g/dL (3.4-5.0); Alkaline Phosphatase 79 U/L (45-117); BUN Blood Urea Nitrogen 14 mg/dL (7-18); Bicarbonate 26 mmol/L (21-32); Bilirubin Direct < 0.1 mg/dL (0-0.2); Bilirubin Total 0.5 mg/dL (0.2-1.0); Glucose Level 134 mg/dL (74-106); Potassium 3.8 mmol/L (3.5-5.1); Sodium Level 140 mmol/L (136-145)
[2018-11-27 01:30] LABS: Barbiturates NEGATIVE (NEGATIVE); Benzodiazepines NEGATIVE (NEGATIVE); Cocaine NEGATIVE (NEGATIVE); METHAMPHETAM NEGATIVE (NEGATIVE); Methadone NEGATIVE (NEGATIVE); Opiates NEGATIVE (NEGATIVE); Phencyclidine NEGATIVE (NEGATIVE); THC Cannibis NEGATIVE (NEGATIVE)
[2018-11-27 01:33] LABS: Urine Blood TRACE (NEG); Urine Glucose NEGATIVE (NEG); Urine Protein NEGATIVE (NEG); Urine pH 6.5 (5.0-7.0)
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
--- NOTE | 2018-11-27 06:03 | ER ---
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 [facility] Is at capacity. ms 12:45 Safety checks: Items removed: yes. Door open/sign placed on door: yes. Family/friend em1 present: yes. Sitter present: Yes. 12:50 [facility] have no Adult male beds. ms 12:54 [facility] Have no adult beds available at this time. ms 12:56 [facility] have no adult beds. ms 13:00 [facility] placed Pt on the waiting list. ms 13:00 Safety checks: Items removed: yes. Door open/sign placed on door: yes. Family/friend em1 present: yes. Sitter present: Yes. 13:05 [facility] have no beds at this time. ms 13:15 Safety checks: Items removed: yes. Door open/sign placed on door: yes. Family/friend em1 present: yes. Sitter present: Yes. 13:30 Safety checks: Items removed: yes. Door open/sign placed on door: yes. Family/friend em1 present: yes. Sitter present: Yes. 13:45 Safety checks: Items removed: yes. Door open/sign placed on door: yes. Family/friend em1 present: yes. Sitter present: Yes. 14:00 Safety checks: Items removed: yes. Door open/sign placed on door: yes. Family/friend em1 present: yes. Sitter present: Yes. 14:15 Safety checks: Items removed: yes. Door open/sign placed on door: yes. Family/friend dh3 present: yes. Sitter present: Yes. 14:30 Safety checks: Items removed: yes. Door open/sign placed on door: yes. Family/friend dh3 present: no. Sitter present: Yes. 14:45 Safety checks: Items removed: yes. Door open/sign placed on door: yes. Family/friend dh3 present: no. Sitter present: Yes. 15:04 Safety checks: Items removed: yes. Door open/sign placed on door: yes. Family/friend em1 present: yes. Sitter present: Yes. 15:15 Safety checks: Items removed: yes. Door open/sign placed on door: yes. Family/friend em1 present: yes. Sitter present: Yes. 15:30 Safety checks: Items removed: yes. Door open/sign placed on door: yes. Family/friend em1 present: yes. Sitter present: Yes. 15:45 Safety checks: Items removed: yes. Door open/sign placed on door: yes. Family/friend em1 present: yes. Sitter present: Yes. 16:00 Safety checks: Items removed: yes. Door open/sign placed on door: yes. Family/friend em1 present: yes. Sitter present: Yes. 16:15 Safety checks: Items removed: yes. Door open/sign placed on door: yes. Family/friend em1 present: yes. Sitter present: Yes. 16:27 Safety checks: Items removed: yes. Door open/sign placed on door: yes. Family/friend em1 present: yes. Sitter present: Yes. 16:45 Safety checks: Items removed: yes. Door open/sign placed on door: yes. Family/friend em1 present: yes. Sitter present: Yes. 17:00 Safety checks: Items removed: yes. Door open/sign placed on door: yes. Family/friend em1 present: yes. Sitter present: Yes. 17:15 Safety checks: Items removed: yes. Door open/sign placed on door: yes. Family/friend em1 present: yes. Sitter present: Yes. 17:30 Safety checks: Items removed: yes. Door open/sign placed on door: yes. Family/friend em1 present: yes. Sitter present: Yes. 17:45 Safety checks: Items removed: yes. Door open/sign placed on door: yes. Family/friend em1 present: yes. Sitter present: Yes. 17:58 Safety checks: Items removed: yes. Door open/sign placed on door: yes. Family/friend em1 present: yes. Sitter present: Yes. Diet tray given. 18:15 Safety checks: Items removed: yes. Door open/sign placed on door: yes. Family/friend em1 present: yes. Sitter present: Yes. 18:30 Safety checks: Items removed: yes. Door open/sign placed on door: yes. Family/friend em1 present: yes. Sitter present: Yes. 18:45 Safety checks: Items removed: yes. Door open/sign placed on door: yes. Family/friend mt present: yes. Sitter present: Yes. 19:00 Safety checks: Items removed: yes. Door open/sign placed on door: yes. Family/friend mt present: yes. Sitter present: Yes. Other: Ting, Rosa, sitting one on one with patient. 19:00 Report given to PILLO Martin. rb1 19:15 Safety checks: Items removed: yes. Door open/sign placed on door: yes. Family/friend mt present: yes. Sitter present: Yes. 19:30 Safety checks: Items removed: yes. Door open/sign placed on door: yes. Family/friend mt present: yes. Sitter present: Yes. 19:44 Safety checks: Items removed: yes. Door open/sign placed on door: yes. Family/friend mt present: yes. Sitter present: Yes. 20:00 Safety checks: Items removed: yes. Door open/sign placed on door: yes. Family/friend mt present: yes. Sitter present: Yes. 20:15 Safety checks: Items removed: yes. Door open/sign placed on door: yes. Family/friend mt present: yes. no. Sitter present: Yes. 20:30 Safety checks: Items removed: yes. Door open/sign placed on door: yes. Family/friend mt present: yes. Sitter present: Yes. 20:43 Faxed face sheet and clinicals to [facility], [facility], [facility], [address] [facility], [facility], [facility], [facility], [facility], [facility], [place], [place], [facility] \\[id number]\\[id number]. 20:45 Safety checks: Items removed: yes. Door open/sign placed on door: yes. Family/friend mt present: yes. Sitter present: Yes. 21:00 Safety checks: Items removed: yes. Door open/sign placed on door: yes. Family/friend mt present: yes. Sitter present: Yes. 21:15 Safety checks: Items removed: yes. Door open/sign placed on door: yes. Family/friend mt present: no. Sitter present: Yes. 21:30 Safety checks: Items removed: yes. Door open/sign placed on door: yes. Family/friend mt present: no. Sitter present: Yes. 21:45 Safety checks: Items removed: yes. Door open/sign placed on door: yes. Family/friend mt present: no. Sitter present: Yes. 22:00 Safety checks: Items removed: yes. Door open/sign placed on door: yes. Family/friend mt present: no. Sitter present: Yes. 22:15 Safety checks: Items removed: yes. Door open/sign placed on door: yes. Family/friend mt present: no. Sitter present: Yes. 22:30 Safety checks: Items removed: yes. Door open/sign placed on door: yes. Family/friend mt present: no. Sitter present: No. 22:45 Safety checks: Items removed: yes. Door open/sign placed on door: yes. Family/friend mt present: no. Sitter present: No. 23:00 Safety checks: Items removed: yes. Door open/sign placed on door: yes. Family/friend mt present: no. Sitter present: Yes. 23:15 Safety checks: Items removed: yes. Door open/sign placed on door: yes. Family/friend mt present: no. Sitter present: Yes. 23:30 Safety checks: Items removed: yes. Door open/sign placed on door: yes. Family/friend mt present: no. Sitter present: Yes. 23:45 Safety checks: Items removed: yes. Door open/sign placed on door: yes. Family/friend mt present: no. Sitter present: Yes. 11/28 00:00 Safety checks: Items removed: yes. Door open/sign placed on door: yes. Family/friend mt present: no. Sitter present: Yes. 00:15 Safety checks: Items removed: yes. Door open/sign placed on door: yes. Family/friend mt present: no. Sitter present: Yes. 00:30 Safety checks: Items removed: yes. Door open/sign placed on door: yes. Family/friend mt present: no. Sitter present: Yes. 00:45 Safety checks: Items removed: yes. Door open/sign placed on door: yes. Family/friend mt present: no. Sitter present: Yes. 01:00 Safety checks: Items removed: yes. Door open/sign placed on door: yes. Family/friend mt present: no. Sitter present: Yes. 01:15 Safety checks: Items removed: yes. Door open/sign placed on door: yes. Family/friend mt present: no. Sitter present: Yes. 01:30 Safety checks: Items removed: yes. Door open/sign placed on door: yes. Family/friend mt present: no. Sitter present: Yes. 01:45 Safety checks: Items removed: yes. Door open/sign placed on door: yes. Family/friend mt present: no. Sitter present: Yes. 02:00 Safety checks: Items removed: yes. Door open/sign placed on door: yes. Family/friend mt present: no. Sitter present: Yes. 02:15 Safety checks: Items removed: yes. Door open/sign placed on door: yes. Family/friend mt present: no. Sitter present: Yes. 02:30 Safety checks: Items removed: yes. Door open/sign placed on door: yes. Family/friend mt present: no. Sitter present: Yes. 02:45 Safety checks: Items removed: yes. Door open/sign placed on door: yes. Family/friend mt present: no. Sitter present: Yes. 03:00 Safety checks: Items removed: yes. Door open/sign placed on door: yes. Family/friend mw2 present: no. Sitter present: Yes. 03:15 Safety checks: Items removed: yes. Door open/sign placed on door: yes. Family/friend mw2 present: no. Sitter present: Yes. 03:30 Safety checks: Items removed: yes. Door open/sign placed on door: yes. Family/friend mw2 present: no. Sitter present: Yes. 03:45 Safety checks: Items removed: yes. Door open/sign placed on door: yes. Family/friend mw2 present: no. Sitter present: Yes. 04:00 Safety checks: Items removed: yes. Door open/sign placed on door: yes. Family/friend mw2 present: no. Sitter present: Yes. 04:15 Safety checks: Items removed: yes. Door open/sign placed on door: yes. Family/friend mw2 present: no. Sitter present: Yes. 04:30 Safety checks: Items removed: yes. Door open/sign placed on door: yes. Family/friend mw2 present: no. Sitter present: Yes. 04:45 Safety checks: Items removed: yes. Door open/sign placed on door: yes. Family/friend mw2 present: no. Sitter present: Yes. 05:00 Safety checks: Items removed: yes. Door open/sign placed on door: yes. Family/friend mw2 present: no. Sitter present: Yes. 05:15 Safety checks: Items removed: yes. Door open/sign placed on door: yes. Family/friend mw2 present: no. Sitter present: Yes. 05:30 Safety checks: Items removed: yes. Door open/sign placed on door: yes. Family/friend mw2 present: no. Sitter present: Yes. 05:45 Safety checks: Items removed: yes. Door open/sign placed on door: yes. Family/friend mw2 present: no. Sitter present: Yes. 06:00 Safety checks: Items removed: yes. Door open/sign placed on door: yes. Family/friend mw2 present: no. Sitter present: Yes. 06:15 Safety checks: Items removed: yes. Door open/sign placed on door: yes. Family/friend mw2 present: no. Sitter present: Yes. 06:30 Safety checks: Items removed: yes. Door open/sign placed on door: yes. Family/friend mw2 present: no. Sitter present: Yes. 06:45 Safety checks: Items removed: yes. Door open/sign placed on door: yes. Family/friend mw2 present: no. Sitter present: Yes. 07:00 Safety Checks: Personal items have been removed. The door is open or patient has been lr3 placed in a hallway bed/chair. A family member and/or friend is present and encouraged to stay. Sitter present at this time. 07:00 Safety checks: Items removed: yes. Door open/sign placed on door: yes. Family/friend mw2 present: yes. Sitter present: Yes. 07:15 Safety Checks: Personal items have been removed. The door is open or patient has been lr3 placed in a hallway bed/chair. A family member and/or friend is present and encouraged to stay. Sitter present at this time. 07:30 Safety Checks: Personal items have been removed. The door is open or patient has been lr3 placed in a hallway bed/chair. A family member and/or friend is present and encouraged to stay. Sitter present at this time. 07:45 Safety Checks: Personal items have been removed. The door is open or patient has been lr3 placed in a hallway bed/chair. A family member and/or friend is present and encouraged to stay. Sitter present at this time. 08:00 Safety Checks: Personal items have been removed. The door is open or patient has been lr3 placed in a hallway bed/chair. A family member and/or friend is present and encouraged to stay. Sitter present at this time. 08:15 Safety Checks: Personal items have been removed. The door is open or patient has been lr3 placed in a hallway bed/chair. A family member and/or friend is present and encouraged to stay. Sitter present at this time. 08:30 Safety Checks: Personal items have been removed. The door is open or patient has been lr3 placed in a hallway bed/chair. A family member and/or friend is present and encouraged to stay. Sitter present at this time. 08:39 nurse to nurse done at [facility]. bd 08:42 doctor to doctor done with dr Marks at [facility]. bd 08:45 Safety Checks: Personal items have been removed. The door is open or patient has been lr3 placed in a hallway bed/chair. A family member and/or friend is present and encouraged to stay. Sitter present at this time. 08:59 pt accepted at [facility] by alonzo gonsales. bd 09:00 Safety Checks: Personal items have been removed. The door is open or patient has been lr3 placed in a hallway bed/chair. A family member and/or friend is present and encouraged to stay. Sitter present at this time. 09:15 Safety Checks: Personal items have been removed. The door is open or patient has been lr3 placed in a hallway bed/chair. A family member and/or friend is present and encouraged to stay. Sitter present at this time. 09:57 No provider procedures requiring assistance completed. IV discontinued, intact, jl7 bleeding controlled, No redness/swelling at site. Pressure dressing applied. Administered Medications: 11/26 23:19 Drug: HALdol (as decanoate) 10 mg Route: IM; Site: right gluteus; la1 11/27 00:06 Follow up: Response: No adverse reaction jb4 00:58 Drug: Ativan 1 mg Route: IVP; Site: left antecubital; jb4 05:42 Follow up: Response: No adverse reaction; Marked relief of symptoms jb4 05:42 Not Given (Other Intervention Used): Ativan 2 mg IVP once jb4 07:30 Drug: Keppra 1000 mg Route: IV; Rate: per protocol; Site: left antecubital; rb1 07:45 Follow up: Response: No adverse reaction; IV Status: Completed infusion rb1 11/28 09:04 Drug: Keppra 750 mg Route: PO; jl7 Outcome: 11/27 06:03 ER care complete, transfer ordered by MD. patricia 11/28 09:57 Transferred by ground EMS to other acute care facility: [facility] jl7 Condition: stable Discharge instructions given to patient, family, Instructed on the need for transfer, Demonstrated understanding of instructions. 09:59 Patient left the ED. jl7 Signatures: Gretchen Melendez Corey, MD MD cha Rivera, Corinna mr Sean, Jose Eduardo Sebastian ms, MD MD rn Martinez, Steve em1 Malik Bourne RN RN la1 Yamileth Alex, RN RN rb1 Rob Triana RN RN jb4 Mary Jane Potter RN RN jl7 [facility] Janis Lance 3 Rogelio Aquino 2 Vamsi Black Tricia Jon il5 Vicente Boone, RN RN lr3 Corrections: (The following items were deleted from the chart) 11/27 07:12 11/26 22:50 PMHx: WHEELCHAIR BOUND, CAN AMBULATE WITH ASSITANCE. WEAKNESS; jb4 jb4 11/27 12:19 12:00 Safety checks: Items removed: yes. Door open/sign placed on door: yes. em1 Family/friend present: yes. Sitter present: Yes. 1 14:53 14:17 Safety checks: Items removed: yes. Door open/sign placed on door: yes. 3 Family/friend present: yes. Sitter present: Yes. em1 19:32 19:00 Safety checks: Items removed: yes. Door open/sign placed on door: yes. dc Family/friend present: yes. Sitter present: Yes. Other: Rosa Maguire sitting one on one with patient dc 11/28 07:58 11/26 22:50 BP 138 / 99; Pulse 74bpm; Resp 16bpm; Pulse Ox 96% RA; Temp 97.6F Oral; jl7 89.36 kg Reported; Height 5 ft. 5 in. Reported; BMI: 32.7; Pain 0/10; jb4
--- NOTE | 2018-11-27 06:17 | EKG ---
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
[2018-11-27] MEDS ORDERED: LEVETIRACETAM 500 MG/5 ML VIAL IV ONE (07:41)
[2018-11-28] MEDS ORDERED: levETIRAcetam 500 MG TAB ONE (09:08)
[2018-11-28 10:17] VITALS: TEMP 99
[2018-11-28 10:18] VITALS: BP 128/77; O2SAT 95
== END 2018-11-28 09:59 ==
LOC: ER 22:43
DX: R45.850 Homicidal ideations (principal); R44.0 Auditory hallucinations; F32.9 Major depressive disorder, single episode, unspecified; F41.9 Anxiety disorder, unspecified; G40.909 Epilepsy, unspecified, not intractable, without status epilepticus
CPT/HCPCS: 36415; 80048; 80076; 80320; 80329; 85025; 85610; 85730; 93005; 96372; 96374; 96375; 99285; J1630; J1953

== ENCOUNTER 2019-02-06 14:53 | Emergency (ER) | payer OTHER ==
--- NOTE | 2019-02-06 15:36 | ER ---
Nurse's Notes [facility] Name: Shan Faye Age: 33 yrs Sex: Male : 1985 Arrival Date: 02/06/2019 Time: 14:56 Bed 25 Private MD: Diagnosis: Epilepsy and recurrent seizures Presentation: 02/06 14:56 Presenting complaint: EMS states: Patient's mother called 911 when patient had tonic aj clonic seizure when leaving work 25 min [employer]ER[employer]. Mother reports catching patient before he fell. EMS reports patient was not post ictal upon arrival, A+O x 4. Patient has history of seizures and takes Keppra daily. Transition of care: patient was not received from another setting of care. Onset of symptoms was February 06, 2019. Risk Assessment: Do you want to hurt yourself or someone else? Patient reports no desire to harm self or others. Initial Sepsis Screen: Does the patient meet any 2 criteria? No. Patient's initial sepsis screen is negative. Does the patient have a suspected source of infection? No. Patient's initial sepsis screen is negative. Care prior to arrival: None. 14:56 Method Of Arrival: EMS: [facility] 14:56 Acuity: PAULINE 3 aj Triage Assessment: 15:00 General: Appears in no apparent distress. comfortable, Behavior is calm, cooperative, aj appropriate for age. Pain: Denies pain. Neuro: Level of Consciousness is awake, alert, obeys commands, Oriented to person, place, time, situation, Appropriate for age Seizure activity reported prior to arrival. Type of seizure: tonic-clonic seizure. Respiratory: Airway is patent Respiratory effort is even, unlabored, Respiratory pattern is regular, symmetrical. Derm: Skin is intact, is healthy with good turgor, Skin is pink, warm \T\ dry. normal. Historical: - Allergies: 15:00 No Known Allergies; aj - Home Meds: 15:00 levetiracetam 750 mg Oral Tb24 [Active]; citalopram 20 mg tab 1 tab once daily aj [Active]; buspirone 5 mg Oral tab 1 tab 3 times per day [Active]; Fycompa 4 mg Oral tab 1 tab twice a day [Active]; Latuda 40 mg Oral tab 1 tab once daily [Active]; - PMHx: 15:00 BRAIN DISORDER, ONE SIDE MORE DEVELOPED THAN THE OTHER; Anxiety; CVA (1993); aj Depression; mental retardation; Seizures; WHEELCHAIR BOUND, CAN AMBULATE WITH ASSITANCE. WEAKNESS; (no longer current. Pt ambulatory and able to perform ADL's); - PSHx: 15:00 Cholecystectomy; aj - Immunization history:: Adult Immunizations up to date. - Social history:: Smoking status: Patient/guardian denies using tobacco. - Ebola Screening: : Patient negative for fever greater than or equal to 101.5 degrees Fahrenheit, and additional compatible Ebola Virus Disease symptoms Patient denies exposure to infectious person Patient denies travel to an Ebola-affected area in the 21 days before illness onset No symptoms or risks identified at this time. Screenin:53 Abuse screen: Denies threats or abuse. Denies injuries from another. Nutritional aj screening: No deficits noted. Tuberculosis screening: No symptoms or risk factors identified. Fall Risk None identified. Assessment: 15:53 Reassessment: Patient appears in no apparent distress at this time. No changes from aj previously documented assessment. Patient and/or family updated on plan of care and expected duration. Pain level reassessed. Patient is alert, oriented x 3, equal unlabored respirations, skin warm/dry/pink. Patient denies pain at this time. Vital Signs: 15:00 BP 130 / 82; Pulse 92; Resp 18; Temp 98.6; Pulse Ox 98% on R/A; Weight 90.72 kg; Height aj 5 ft. 5 in. (165.10 cm); 15:01 BP 109 / 76; Pulse 71; Resp 18; Temp 98.7(O); Pulse Ox 94% on R/A; mh5 15:00 Body Mass Index 33.28 (90.72 kg, 165.10 cm) aj Benjamín Coma Score: 15:00 Eye Response: spontaneous(4). Verbal Response: oriented(5). Motor Response: obeys aj commands(6). Total: 15. ED Course: 14:56 Patient arrived in ED. 14:56 Alee Bonilla, RN is Primary Nurse. aj 14:58 Triage completed. aj 15:00 Arm band placed on left wrist. Patient placed in an exam room, on a stretcher. aj 15:00 Seizure precautions initiated. aj 15:08 Farooq Byrnes MD is Attending Physician. gs 15:16 Patient has correct armband on for positive identification. Bed in low position. Call mh5 light in reach. Side rails up X2. Adult w/ patient. Pulse ox on. NIBP on. 15:35 Satinder Arreola MD is Referral Physician. gs 15:53 Patient has correct armband on for positive identification. aj 15:53 No provider procedures requiring assistance completed. IV discontinued, intact, EMS IV aj 20 to right AC removed. Administered Medications: No medications were administered Outcome: 15:36 Discharge ordered by . gs 15:53 Discharged to home ambulatory, with family. aj 15:53 Condition: good 15:53 Discharge instructions given to patient, family, Instructed on discharge instructions, follow up and referral plans. Demonstrated understanding of instructions, follow-up care. 15:55 Patient left the ED. aj Signatures: Alee Bonilla, RN [facility] Farooq Byrnes MD MD
--- NOTE | 2019-02-06 15:37 | EDPHYS ---
Physician Documentation [facility] Name: Shan Faye Age: 33 yrs Sex: Male : 1985 Arrival Date: 02/06/2019 Time: 14:56 Bed 25 Private MD: ED Physician Farooq Byrnes HPI: 02/06 15:51 This 33 yrs old Male presents to ER via EMS with complaints of Seizure. gs 15:51 The patient presents after having a single isolated seizure. Character of seizure(s): gs Motor activity: generalized. Seizure onset: just prior to arrival. Context: the seizure(s) was witnessed, by family. Seizure Hx: Last seizure: The patient's last seizure was approximately 2 month(s) ago. Associated injury: The patient did not suffer any apparent associated injury. The patient has experienced similar episodes in the past, chronically. The patient has not recently seen a physician. Historical: - Allergies: 15:00 No Known Allergies; aj - Home Meds: 15:00 levetiracetam 750 mg Oral Tb24 [Active]; citalopram 20 mg tab 1 tab once daily aj [Active]; buspirone 5 mg Oral tab 1 tab 3 times per day [Active]; Fycompa 4 mg Oral tab 1 tab twice a day [Active]; Latuda 40 mg Oral tab 1 tab once daily [Active]; - PMHx: 15:00 BRAIN DISORDER, ONE SIDE MORE DEVELOPED THAN THE OTHER; Anxiety; CVA (1993); aj Depression; mental retardation; Seizures; WHEELCHAIR BOUND, CAN AMBULATE WITH ASSITANCE. WEAKNESS; (no longer current. Pt ambulatory and able to perform ADL's); - PSHx: 15:00 Cholecystectomy; aj - Immunization history:: Adult Immunizations up to date. - Social history:: Smoking status: Patient/guardian denies using tobacco. - Ebola Screening: : Patient negative for fever greater than or equal to 101.5 degrees Fahrenheit, and additional compatible Ebola Virus Disease symptoms Patient denies exposure to infectious person Patient denies travel to an Ebola-affected area in the 21 days before illness onset No symptoms or risks identified at this time. ROS: 15:51 All other systems are negative. gs Exam: 15:51 Eyes: Pupils equal round and reactive to light, extra-ocular motions intact. Lids and gs lashes normal. Conjunctiva and sclera are non-icteric and not injected. Cornea within normal limits. Periorbital areas with no swelling, redness, or edema. ENT: Nares patent. No nasal discharge, no septal abnormalities noted. Tympanic membranes are normal and external auditory canals are clear. Oropharynx with no redness, swelling, or masses, exudates, or evidence of obstruction, uvula midline. Mucous membranes moist. Neck: Trachea midline, no thyromegaly or masses palpated, and no cervical lymphadenopathy. Supple, full range of motion without nuchal rigidity, or vertebral point tenderness. No Meningismus. Chest/axilla: Normal chest wall appearance and motion. Nontender with no deformity. No lesions are appreciated. Cardiovascular: Regular rate and rhythm with a normal S1 and S2. No gallops, murmurs, or rubs. Normal PMI, no JVD. No pulse deficits. Respiratory: Lungs have equal breath sounds bilaterally, clear to auscultation and percussion. No rales, rhonchi or wheezes noted. No increased work of breathing, no retractions or nasal flaring. Abdomen/GI: Soft, non-tender, with normal bowel sounds. No distension or tympany. No guarding or rebound. No evidence of tenderness throughout. Back: No spinal tenderness. No costovertebral tenderness. Full range of motion. Skin: Warm, dry with normal turgor. Normal color with no rashes, no lesions, and no evidence of cellulitis. MS/ Extremity: Pulses equal, no cyanosis. Neurovascular intact. Full, normal range of motion. 15:51 Constitutional: The patient appears alert, awake. 15:51 Head/face: Exam is negative for acute changes. 15:51 Neuro: Orientation: no acute changes, Cranial nerves: no acute changes, Motor: moves all fours, Sensation: no obvious gross deficits. Vital Signs: 15:00 BP 130 / 82; Pulse 92; Resp 18; Temp 98.6; Pulse Ox 98% on R/A; Weight 90.72 kg; Height aj 5 ft. 5 in. (165.10 cm); 15:01 BP 109 / 76; Pulse 71; Resp 18; Temp 98.7(O); Pulse Ox 94% on R/A; mh5 15:00 Body Mass Index 33.28 (90.72 kg, 165.10 cm) [place] Coma Score: 15:00 Eye Response: spontaneous(4). Verbal Response: oriented(5). Motor Response: obeys aj commands(6). Total: 15. MDM: 15:35 Patient medically screened. gs 15:51 Differential diagnosis: seizure. Data reviewed: vital signs, nurses notes. Counseling: gs I had a detailed discussion with the patient and/or guardian regarding: the historical points, exam findings, and any diagnostic results supporting the discharge/admit diagnosis, increase keppra until can see rigo. Response to treatment: the patient's symptoms have resolved after treatment, and as a result, I will discharge patient. Administered Medications: No medications were administered Disposition: 02/06/19 15:36 Discharged to Home. Impression: Epilepsy and recurrent seizures. - Condition is Stable. - Discharge Instructions: Seizure, Adult. - Medication Reconciliation Form, Thank You Letter, Antibiotic Education, Prescription Opioid Use form. - Follow up: Satinder Arreola MD; When: 2 - 3 days; Reason: Re-evaluation by your physician. - Notes: go up to 1000mg keppra in am and pm Signatures: Alee Bonilla RN RN Farooq Hayward MD MD Corrections: (The following items were deleted from the chart) 15:55 15:36 02/06/2019 15:36 Discharged to Home. Impression: Epilepsy and recurrent seizures. aj Condition is Stable. Forms are Medication Reconciliation Form, Thank You Letter, Antibiotic Education, Prescription Opioid Use. Follow up: Satinder Arreola; When: 2 - 3 days; Reason: Re-evaluation by your physician. gs
[2019-02-06 16:29] VITALS: BP 109/76; TEMP 98.7; O2SAT 94
== END 2019-02-06 15:55 | disposition home or self-care (01) ==
LOC: ER 14:53
DX: G40.909 Epilepsy, unspecified, not intractable, without status epilepticus (principal); F41.9 Anxiety disorder, unspecified; G93.89 Other specified disorders of brain; F32.9 Major depressive disorder, single episode, unspecified; F79 Unspecified intellectual disabilities
CPT/HCPCS: 99283

== ENCOUNTER 2019-04-17 14:17 | Emergency (ER) | payer OTHER ==
[2019-04-17] MEDS ORDERED: levETIRAcetam 500 MG in NA CHLORIDE 0.9% 100 ML IV ONE (14:45)
[2019-04-17 14:54] LABS: Absolute Lymphocytes (CBC) 2.3 K/uL (0.7-4.9); Basophils % 0.8 % (0-1.3); Eosinophils % 1.4 % (0-4.4); Hematocrit 42.6 % (39.6-49.0); Lymphocytes % 34.7 % (15.3-44.8); MPV 8.9 fL (7.6-11.3); Monocytes % 5.8 % (3.3-12.3); RBC Red Blood Cell Count 4.99 M/uL (4.33-5.43)
[2019-04-17 15:01] LABS: Protime INR 1.03
[2019-04-17 15:10] LABS: ALT/SGPT 82 U/L (12-78); AST/SGOT 42 U/L (15-37); Albumin 3.8 g/dL (3.4-5.0); Alkaline Phosphatase 47 U/L (45-117); BUN Blood Urea Nitrogen 9 mg/dL (7-18); Bicarbonate 26 mmol/L (21-32); Bilirubin Direct 0.1 mg/dL (0-0.2); Bilirubin Total 0.5 mg/dL (0.2-1.0); Glucose Level 80 mg/dL (74-106); Potassium 3.6 mmol/L (3.5-5.1); Protein, Total 7.6 g/dL (6.4-8.2); Sodium Level 143 mmol/L (136-145)
--- NOTE | 2019-04-17 15:17 | ER ---
Nurse's Notes [facility] Name: Shan Faye Age: 33 yrs Sex: Male : 1985 Arrival Date: 04/17/2019 Time: 14:18 Bed 7 Private MD: Diagnosis: Epilepsy and recurrent seizures Presentation: 04/17 14:20 Presenting complaint: EMS states: Witnessed tonic clonic seizure that lasted 20-30 ss seconds at work. Pt is awake and alert on arrival to ED. Transition of care: patient was not received from another setting of care. Onset of symptoms was April 17, 2019. Risk Assessment: Do you want to hurt yourself or someone else? Patient reports no desire to harm self or others. Initial Sepsis Screen: Does the patient meet any 2 criteria? No. Patient's initial sepsis screen is negative. Does the patient have a suspected source of infection? No. Patient's initial sepsis screen is negative. Care prior to arrival: None. 14:20 Method Of Arrival: EMS: [facility] 14:20 Acuity: PAULINE 3 ss Historical: - Allergies: 15:19 No Known Allergies; sg - PMHx: 14:20 Anxiety; BRAIN DISORDER, ONE SIDE MORE DEVELOPED THAN THE OTHER; CVA (1993); ss Depression; mental retardation; Seizures; 15:19 WHEELCHAIR BOUND, CAN AMBULATE WITH ASSITANCE. WEAKNESS; (no longer current. Pt sg ambulatory and able to perform ADL's); - PSHx: 14:20 Cholecystectomy; ss - Immunization history:: Adult Immunizations up to date. - Family history:: not pertinent. - Social history:: Smoking status: Patient/guardian denies using tobacco. - Ebola Screening: : Patient negative for fever greater than or equal to 101.5 degrees Fahrenheit, and additional compatible Ebola Virus Disease symptoms Patient denies exposure to infectious person Patient denies travel to an Ebola-affected area in the 21 days before illness onset No symptoms or risks identified at this time. Screenin:18 Abuse screen: Denies threats or abuse. Denies injuries from another. Nutritional sg screening: No deficits noted. Tuberculosis screening: No symptoms or risk factors identified. Fall Risk None identified. Assessment: 15:18 Reassessment: Patient appears in no apparent distress at this time. awaiting ER orders sg to be completed and resulted prior to dc to home, pt and pt family stated understanding. Vital Signs: 14:19 BP 115 / 88; Pulse 80; Resp 15; Pulse Ox 94% on R/A; Pain 0/10; ss [place] Coma Score: 15:18 Eye Response: spontaneous(4). Verbal Response: oriented(5). Motor Response: obeys sg commands(6). Total: 15. ED Course: 14:18 Patient arrived in ED. ss 14:19 Arm band placed on right wrist. ss 14:20 Isaiah Ferrer MD is Attending Physician. [facility] 14:20 Seizure precautions initiated. Pulse ox on. NIBP on. Warm blanket given. Head of bed sg elevated. 14:22 Triage completed. ss 14:32 Dano Campbell RN is Primary Nurse. sg 15:16 Satinder Arreola MD is Referral Physician. [facility] 15:21 EKG done, by consulting technical director. reviewed by Isaiah Ferrer MD. dt2 15:46 Urine collected: clean catch specimen, clear, humberto colored. jb1 16:48 IV discontinued, intact, bleeding controlled, No redness/swelling at site. Pressure sg dressing applied. 17:54 No provider procedures requiring assistance completed. Maintain EMS IV. Dressing sg intact. Good blood return noted. Site clean \T\ dry. Gauge \T\ site: 20 G RAC. IV is patent, is intact. Administered Medications: 15:10 Drug: NS 0.9% 500 ml Route: IV; Rate: bolus; Site: right antecubital; sg 16:00 Follow up: Response: No adverse reaction; IV Status: Completed infusion; IV Intake: sg 500ml 15:10 Drug: Keppra 500 mg Route: IV; Rate: per protocol; Site: right antecubital; sg 15:40 Follow up: Response: No adverse reaction; IV Status: Completed infusion sg Intake: 16:00 IV: 500ml; Total: 500ml. sg Outcome: 15:16 Discharge ordered by . annie 16:48 Discharged to home ambulatory, with family. sg 16:48 Condition: good 16:48 Discharge instructions given to patient, family, Instructed on discharge instructions, follow up and referral plans. safety practices, Demonstrated understanding of instructions, follow-up care. 16:53 Patient left the ED. ss Signatures: Markie Mcdermott jb1 Dano Campbell, PILLO RN Isaiah Drake MD MD cha Smirch, Shelby, PILLO RN ss Lorena Walsh dt2
--- NOTE | 2019-04-17 15:18 | EDPHYS ---
Physician Documentation [facility] Name: Shan Faye Age: 33 yrs Sex: Male : 1985 Arrival Date: 04/17/2019 Time: 14:18 Bed 7 Private MD: ED Physician Isaiah Ferrer HPI: 04/17 14:30 This 33 yrs old Male presents to ER via EMS with complaints of Seizure. annie 14:30 The patient presents after having a single isolated seizure. Character of seizure(s): annie Motor activity: focal activity, of the left arm. Seizure onset: just prior to arrival. Context: the seizure(s) was witnessed, by co-worker(s). Seizure Hx: Last seizure: The patient's last seizure "not sure". Associated injury: The patient did not suffer any apparent associated injury. EMS care: none. The patient has experienced similar episodes in the past, multiple times. Historical: - Allergies: 15:19 No Known Allergies; sg - PMHx: 14:20 Anxiety; BRAIN DISORDER, ONE SIDE MORE DEVELOPED THAN THE OTHER; CVA (1993); ss Depression; mental retardation; Seizures; 15:19 WHEELCHAIR BOUND, CAN AMBULATE WITH ASSITANCE. WEAKNESS; (no longer current. Pt sg ambulatory and able to perform ADL's); - PSHx: 14:20 Cholecystectomy; ss - Immunization history:: Adult Immunizations up to date. - Family history:: not pertinent. - Social history:: Smoking status: Patient/guardian denies using tobacco. - Ebola Screening: : Patient negative for fever greater than or equal to 101.5 degrees Fahrenheit, and additional compatible Ebola Virus Disease symptoms Patient denies exposure to infectious person Patient denies travel to an Ebola-affected area in the 21 days before illness onset No symptoms or risks identified at this time. ROS: 14:30 Constitutional: Negative for fever, chills, and weight loss, Eyes: Negative for injury, annie pain, redness, and discharge, ENT: Negative for injury, pain, and discharge, Neck: Negative for injury, pain, and swelling, Cardiovascular: Negative for chest pain, palpitations, and edema, Respiratory: Negative for shortness of breath, cough, wheezing, and pleuritic chest pain, Abdomen/GI: Negative for abdominal pain, nausea, vomiting, diarrhea, and constipation, Back: Negative for injury and pain, : Negative for injury, bleeding, discharge, and swelling, MS/Extremity: Negative for injury and deformity, Skin: Negative for injury, rash, and discoloration, Psych: Negative for depression, anxiety, suicide ideation, homicidal ideation, and hallucinations, Allergy/Immunology: Negative for hives, rash, and allergies, Endocrine: Negative for neck swelling, polydipsia, polyuria, polyphagia, and marked weight changes, Hematologic/Lymphatic: Negative for swollen nodes, abnormal bleeding, and unusual bruising. 14:30 Neuro: Positive for dizziness, seizure activity. Exam: 14:30 Constitutional: This is a well developed, well nourished patient who is awake, alert, annie and in no acute distress. Head/Face: Normocephalic, atraumatic. Eyes: Pupils equal round and reactive to light, extra-ocular motions intact. Lids and lashes normal. Conjunctiva and sclera are non-icteric and not injected. Cornea within normal limits. Periorbital areas with no swelling, redness, or edema. ENT: Nares patent. No nasal discharge, no septal abnormalities noted. Tympanic membranes are normal and external auditory canals are clear. Oropharynx with no redness, swelling, or masses, exudates, or evidence of obstruction, uvula midline. Mucous membranes moist. Neck: Trachea midline, no thyromegaly or masses palpated, and no cervical lymphadenopathy. Supple, full range of motion without nuchal rigidity, or vertebral point tenderness. No Meningismus. Chest/axilla: Normal chest wall appearance and motion. Nontender with no deformity. No lesions are appreciated. Cardiovascular: Regular rate and rhythm with a normal S1 and S2. No gallops, murmurs, or rubs. Normal PMI, no JVD. No pulse deficits. Respiratory: Lungs have equal breath sounds bilaterally, clear to auscultation and percussion. No rales, rhonchi or wheezes noted. No increased work of breathing, no retractions or nasal flaring. Abdomen/GI: Soft, non-tender, with normal bowel sounds. No distension or tympany. No guarding or rebound. No evidence of tenderness throughout. Back: No spinal tenderness. No costovertebral tenderness. Full range of motion. Male : Normal genitalia with no discharge or lesions. Skin: Warm, dry with normal turgor. Normal color with no rashes, no lesions, and no evidence of cellulitis. MS/ Extremity: Pulses equal, no cyanosis. Neurovascular intact. Full, normal range of motion. Neuro: Awake and alert, GCS 15, oriented to person, place, time, and situation. Cranial nerves II-XII grossly intact. Motor strength 5/5 in all extremities. Sensory grossly intact. Cerebellar exam normal. Normal gait. Psych: Awake, alert, with orientation to person, place and time. Behavior, mood, and affect are within normal limits. Vital Signs: 14:19 BP 115 / 88; Pulse 80; Resp 15; Pulse Ox 94% on R/A; Pain 0/10; ss [place] Coma Score: 15:18 Eye Response: spontaneous(4). Verbal Response: oriented(5). Motor Response: obeys sg commands(6). Total: 15. MDM: 14:20 Patient medically screened. 04/17 14:30 Order name: Acetaminophen; Complete Time: 15:16 04/17 14:30 Order name: Basic Metabolic Panel; Complete Time: 15:16 04/17 14:30 Order name: CBC with Diff; Complete Time: 15:16 04/17 14:30 Order name: ETOH Level; Complete Time: 15:16 04/17 14:30 Order name: Hepatic Function; Complete Time: 15:16 04/17 14:30 Order name: PT-INR; Complete Time: 15:16 04/17 14:30 Order name: Ptt, Activated; Complete Time: 15:16 04/17 14:30 Order name: Salicylate 04/17 14:30 Order name: Urine Drug Screen 04/17 14:30 Order name: EKG; Complete Time: 14:32 04/17 14:30 Order name: EKG - Nurse/Tech; Complete Time: 14:32 04/17 15:46 Order name: Urine Dipstick--Ancillary (enter results) 04/17 14:30 Order name: IV Saline Lock; Complete Time: 14:33 04/17 14:30 Order name: Labs collected and sent; Complete Time: 14:33 04/17 14:30 Order name: Urine Dipstick-Ancillary (obtain specimen); Complete Time: 15:43 annie 07/15 14:30 Order name: Seizure Precautions; Complete Time: 14:31 annie Administered Medications: 15:10 Drug: NS 0.9% 500 ml Route: IV; Rate: bolus; Site: right antecubital; sg 16:00 Follow up: Response: No adverse reaction; IV Status: Completed infusion; IV Intake: sg 500ml 15:10 Drug: Keppra 500 mg Route: IV; Rate: per protocol; Site: right antecubital; sg 15:40 Follow up: Response: No adverse reaction; IV Status: Completed infusion sg Disposition: 04/17/19 15:16 Discharged to Home. Impression: Epilepsy and recurrent seizures. - Condition is Stable. - Discharge Instructions: Seizure, Adult, Seizure, Adult, [id number]. - Work release form, Medication Reconciliation Form, Thank You Letter, Antibiotic Education, Prescription Opioid Use form. - Follow up: Private Physician; When: 2 - 3 days; Reason: Recheck today's complaints, Continuance of care, Re-evaluation by your physician. Follow up: Satinder Arreola; When: 2 - 3 days; Reason: Recheck today's complaints, Continuance of care, Re-evaluation by your physician. - Problem is new. - Symptoms have improved. Signatures: Dispatcher [employer] EDMS Dano Campbell RN RN Isaiah Drake MD MD cha Smirch, Shelby, RN RN ss Corrections: (The following items were deleted from the chart) 16:53 15:16 04/17/2019 15:16 Discharged to Home. Impression: Epilepsy and recurrent seizures. ss Condition is Stable. Discharge Instructions: Seizure, Adult, Seizure, Adult, [id number]. Forms are Medication Reconciliation Form, Thank You Letter, Antibiotic Education, Prescription Opioid Use. Follow up: Private Physician; When: 2 - 3 days; Reason: Recheck today's complaints, Continuance of care, Re-evaluation by your physician. Follow up: Satinder Arreola; When: 2 - 3 days; Reason: Recheck today's complaints, Continuance of care, Re-evaluation by your physician. Problem is new. Symptoms have improved. annie
[2019-04-17 16:07] LABS: Barbiturates NEGATIVE (NEGATIVE); Benzodiazepines NEGATIVE (NEGATIVE); Cocaine NEGATIVE (NEGATIVE); METHAMPHETAM NEGATIVE (NEGATIVE); Methadone NEGATIVE (NEGATIVE); Opiates NEGATIVE (NEGATIVE); Phencyclidine NEGATIVE (NEGATIVE); THC Cannibis NEGATIVE (NEGATIVE)
[2019-04-17 16:10] LABS: Urine Blood TRACE (NEG); Urine Glucose NEGATIVE (NEG); Urine Protein NEGATIVE (NEG); Urine Specific Gravity 1.025 (1.005-1.030); Urine pH 5.5 (5.0-7.0)
[2019-04-17 18:19] VITALS: BP 115/88; O2SAT 94
--- NOTE | 2019-04-17 20:04 | EKG ---
Test Date: 2019-04-17 Test Time: 14:27:52 Refrigeration Technician: MAY MEASUREMENT RESULTS: Intervals: Rate: 76 AL: 156 QRSD: 82 QT: 382 QTc: 429 [place]: P: 36 AL: 156 QRS: 7 T: 18 INTERPRETIVE STATEMENTS: Normal sinus rhythm Normal ECG Compared to ECG 11/26/2018 23:09:03 No significant changes Electronically Signed On 04-17-19 20:03:53 CDT by Tony Wallace
== END 2019-04-17 16:53 | disposition home or self-care (01) ==
LOC: ER 14:17
DX: G40.802 Other epilepsy, not intractable, without status epilepticus (principal); Z86.73 Personal history of transient ischemic attack (TIA), and cerebral infarction without residual deficits
CPT/HCPCS: 36415; 80048; 80076; 80307; 80320; 80329; 81003; 85025; 85610; 85730; 93005; 96365; 99284; J1953

== ENCOUNTER 2019-06-16 18:58 | Emergency (ER) | payer OTHER ==
--- NOTE | 2019-06-16 20:48 | RAD REPORT ---
EXAM DESCRIPTION: RAD - Chest Pa And Lat (2 Views) - 06/16/2019 8:42 pm CLINICAL HISTORY: COUGH Chest pain. COMPARISON: CHEST SINGLE VIEW dated 03/07/2015; CHEST SINGLE VIEW dated 02/18/2015; CHEST PA AND LAT 2 VIEW dated 12/17/2014; CHEST PA AND LAT 2 VIEW dated 12/12/2014 FINDINGS: Mild opacity present in the left lung base posterior most compatible with developing pneum onia. The lungs are otherwise clear. The heart is normal in size. No displaced fractures. IMPRESSION: Developing posterior left base pneumonia.
[2019-06-16] MEDS ORDERED: NA CHLORIDE 0.9% 1,000 ML ONE (20:56)
[2019-06-16 21:04] LABS: Absolute Lymphocytes (CBC) 1.7 K/uL (0.7-4.9); Basophils % 0.7 % (0-1.3); Hematocrit 43.5 % (39.6-49.0); Lymphocytes % 20.2 % (15.3-44.8); RBC Red Blood Cell Count 5.01 M/uL (4.33-5.43)
[2019-06-16 21:20] LABS: Albumin 4.4 g/dL (3.4-5.0); Bilirubin Total 0.8 mg/dL (0.2-1.0); Potassium 3.5 mmol/L (3.5-5.1)
[2019-06-16] MEDS ORDERED: CEFTRIAXONE/SWI 1gm 1 GM/10 ML SYR ONE (21:24)
--- NOTE | 2019-06-16 21:34 | ER ---
Nurse's Notes [facility] Name: Shan Faye Age: 33 yrs Sex: Male : 1985 Arrival Date: 06/16/2019 Time: 19:01 Bed 18 Private MD: Diagnosis: Pneumonia Presentation: 06/16 19:04 Presenting complaint: Mother states: He has had a cough for about a week and congestion lp1 that just began this week; Denies fever at home, sore throat. Transition of care: patient was not received from another setting of care. Onset of symptoms was June 16, 2019. Risk Assessment: Do you want to hurt yourself or someone else? Patient reports no desire to harm self or others. Initial Sepsis Screen: Does the patient meet any 2 criteria? No. Patient's initial sepsis screen is negative. Does the patient have a suspected source of infection? No. Patient's initial sepsis screen is negative. Care prior to arrival: None. 19:04 Method Of Arrival: Ambulatory lp1 19:04 Acuity: PAULINE 4 lp1 Triage Assessment: 19:07 General: Appears in no apparent distress. Behavior is calm, cooperative. Pain: Denies lp1 pain. EENT: Parent/caregiver reports the patient having nasal congestion. Respiratory: Respiratory effort is even, unlabored, Parent/caregiver reports the patient having cough that is. Historical: - Allergies: 19:07 No Known Allergies; lp1 - Home Meds: 19:07 levetiracetam 750 mg Oral Tb24 1.5 tabs twice a day [Active]; buspirone 7.5 mg oral tab lp1 three times a day [Active]; citalopram 20 mg tab 1 tab once daily [Active]; Fycompa 8 mg oral tab 1 tab once daily [Active]; Latuda 40 mg Oral tab 1 tab once daily [Active]; - PMHx: 19:07 Anxiety; BRAIN DISORDER, ONE SIDE MORE DEVELOPED THAN THE OTHER; CVA (1993); lp1 Depression; mental retardation; Seizures; WHEELCHAIR BOUND, CAN AMBULATE WITH ASSITANCE. WEAKNESS; (no longer current. Pt ambulatory and able to perform ADL's); - PSHx: 19:07 Cholecystectomy; lp1 - Immunization history:: Adult Immunizations up to date. - Social history:: Smoking status: Patient/guardian denies using tobacco. - Ebola Screening: : No symptoms or risks identified at this time. Screenin:00 Abuse screen: Denies threats or abuse. Nutritional screening: No deficits noted. cr4 Tuberculosis screening: No symptoms or risk factors identified. Fall Risk None identified. Assessment: 20:50 General: Appears comfortable, Behavior is calm, cooperative, appropriate for age. Pain: cr4 Denies pain. Neuro: Denies weakness blurred vision dizziness, difficulty swallowing, numbness. Cardiovascular: No deficits noted. Cardiovascular: Denies chest pain, fatigue, lightheadedness, nausea, palpitations. Cardiovascular: Heart tones S1 S2 present. Respiratory: Reports cough that is productive, Breath sounds are diminished bilaterally. Onset: The symptoms/episode began/occurred today. Respiratory: Airway is patent Trachea midline Respiratory effort is even, unlabored. GI: No signs and/or symptoms were reported involving the gastrointestinal system. : No signs and/or symptoms were reported regarding the genitourinary system. EENT: No signs and/or symptoms were reported regarding the EENT system. Derm: No signs and/or symptoms reported regarding the dermatologic system. Musculoskeletal: No signs and/or symptoms reported regarding the musculoskeletal system. 20:50 Cardiovascular: Capillary refill < 3 seconds Rhythm is regular. cr4 21:40 Reassessment: Patient and/or family updated on plan of care and expected duration. Pain cr4 level reassessed. Patient is alert, oriented x 3, equal unlabored respirations, skin warm/dry/pink. 22:35 Reassessment: Patient and/or family updated on plan of care and expected duration. Pain cr4 level reassessed. Patient is alert, oriented x 3, equal unlabored respirations, skin warm/dry/pink. Patient states feeling better. Patient states symptoms have improved. Vital Signs: 19:04 BP 123 / 92; Pulse 105; Resp 18; Temp 99(O); Pulse Ox 95% on R/A; Weight 92.99 kg; lp1 Height 5 ft. 5 in. (165.10 cm); Pain 0/10; 20:50 BP 146 / 97; Pulse 99; Resp 18; Temp 99; Pulse Ox 98% ; Pain 0/10; cr4 21:50 BP 135 / 94; Pulse 94; Resp 20; Pulse Ox 98% ; Pain 0/10; cr4 22:50 BP 134 / 98; Pulse 111; Resp 20; Temp 98.7; Pulse Ox 94% ; Pain 0/10; cr4 19:04 Body Mass Index 34.11 (92.99 kg, 165.10 cm) lp1 ED Course: 19:01 Patient arrived in ED. rg4 19:05 Triage completed. lp1 19:05 Arm band placed on right wrist. lp1 20:15 Rainer Kerr PA is PHCP. jmm 20:15 Isaiah Ferrer MD is Attending Physician. jmm 20:41 Chest Pa And Lat (2 Views) XRAY In Process Unspecified. EDMS 20:50 Throat Culture Sent. cr4 20:57 Inserted saline lock: 20 gauge in left antecubital area, using aseptic technique. cr4 22:00 Patient has correct armband on for positive identification. Bed in low position. Side cr4 rails up X2. Adult w/ patient. 22:00 No provider procedures requiring assistance completed. cr4 22:05 Notified Nurse Practitioner and/or Physician Manager Advanced of notified PA of patient cr4 spitting up a lot of sputum and mild nasuea. 22:45 IV discontinued, intact, bleeding controlled, No redness/swelling at site. Pressure cr4 dressing applied. Administered Medications: 20:57 Drug: NS 0.9% 1000 ml Route: IV; Rate: 1 bolus; Site: left antecubital; cr4 22:00 Follow up: IV Status: Completed infusion; IV Intake: 100ml cr4 21:29 Drug: Rocephin - (cefTRIAXone) 1 grams Route: IVPB; Infused Over: 30 mins; Site: left cr4 antecubital; 22:00 Follow up: Response: No adverse reaction; IV Intake: 10ml cr4 22:12 Drug: Albuterol 2.5 mg Route: Inhalation; cr4 22:23 Follow up: Response: No adverse reaction cr4 22:12 Drug: Zofran 2 mg Route: IVP; Site: left antecubital; cr4 22:30 Follow up: Response: No adverse reaction; Vomiting decreased cr4 Intake: 22:00 IV: 100ml; Total: 100ml. cr4 22:00 IV: 10ml; Total: 110ml. cr4 Outcome: 21:33 Discharge ordered by . [facility] 22:54 Patient left the ED. cr4 22:54 Discharged to home ambulatory, with family. cr4 22:54 Condition: stable 22:54 Discharge instructions given to patient, family, Instructed on discharge instructions, follow up and referral plans. medication usage, Demonstrated understanding of instructions, follow-up care, medications, Prescriptions given X 1. Signatures: Dispatcher [employer] EDMS Rainer Kerr PA PA jmm Ruiz, Claudia RN RN cr4 Adele Lama RN RN lp1 Emily Hudson rg4 Corrections: (The following items were deleted from the chart) 06/17 04:52 04:48 Throat Culture drawn and sent. cr4 cr4 04:52 04:49 Inserted saline lock: 20 gauge in right antecubital area, using aseptic cr4 technique. cr4
--- NOTE | 2019-06-16 21:34 | EDPHYS ---
Physician Documentation [facility] Name: Shan Faye Age: 33 yrs Sex: Male : 1985 Arrival Date: 06/16/2019 Time: 19:01 Bed 18 Private MD: ED Physician Isaiah Ferrer HPI: 06/16 20:16 This 33 yrs old Male presents to ER via Ambulatory with complaints of Cough, jmm Congestion. 20:16 The patient or guardian reports cough. Onset: The symptoms/episode began/occurred jmm gradually, 2 day(s) ago. Modifying factors: The symptoms are alleviated by nothing, the symptoms are aggravated by nothing. This is a 33 year old male that presents to the ED with complaints of cough, sore throat congestion beginning 2 days ago. Patient developed leg cramping today. . Historical: - Allergies: 19:07 No Known Allergies; lp1 - Home Meds: 19:07 levetiracetam 750 mg Oral Tb24 1.5 tabs twice a day [Active]; buspirone 7.5 mg oral tab lp1 three times a day [Active]; citalopram 20 mg tab 1 tab once daily [Active]; Fycompa 8 mg oral tab 1 tab once daily [Active]; Latuda 40 mg Oral tab 1 tab once daily [Active]; - PMHx: 19:07 Anxiety; BRAIN DISORDER, ONE SIDE MORE DEVELOPED THAN THE OTHER; CVA (1993); lp1 Depression; mental retardation; Seizures; WHEELCHAIR BOUND, CAN AMBULATE WITH ASSITANCE. WEAKNESS; (no longer current. Pt ambulatory and able to perform ADL's); - PSHx: 19:07 Cholecystectomy; lp1 - Immunization history:: Adult Immunizations up to date. - Social history:: Smoking status: Patient/guardian denies using tobacco. - Ebola Screening: : No symptoms or risks identified at this time. ROS: 20:16 Cardiovascular: Negative for chest pain, palpitations, and edema. jmm 20:16 Abdomen/GI: Negative for abdominal pain, nausea, vomiting, diarrhea, and constipation. 20:16 Constitutional: Positive for body aches, malaise. 20:16 ENT: Positive for sore throat. 20:16 Respiratory: Positive for cough. 20:16 MS/extremity: Positive for pain. 20:16 All other systems are negative. Exam: 20:16 Constitutional: This is a well developed, well nourished patient who is awake, alert, jmm and in no acute distress. Head/Face: atraumatic. Eyes: EOMI, no conjunctival erythema appreciated ENT: Moist Mucus Membranes Neck: Trachea midline, Supple Chest/axilla: Normal chest wall appearance and motion. Cardiovascular: Regular rate and rhythm. No edema appreciated Respiratory: Normal respirations, no respiratory distress appreciated Back: Normal ROM Skin: General appearance color normal MS/ Extremity: Moves all extremities, no obvious deformities appreciated, no edema noted to the lower extremities Neuro: Awake and alert, normal gait Psych: Behavior is normal, Mood is normal, Patient is cooperative and pleasant 20:16 ENT: TM's: are normal, Posterior pharynx: is normal. Vital Signs: 19:04 BP 123 / 92; Pulse 105; Resp 18; Temp 99(O); Pulse Ox 95% on R/A; Weight 92.99 kg; lp1 Height 5 ft. 5 in. (165.10 cm); Pain 0/10; 20:50 BP 146 / 97; Pulse 99; Resp 18; Temp 99; Pulse Ox 98% ; Pain 0/10; cr4 21:50 BP 135 / 94; Pulse 94; Resp 20; Pulse Ox 98% ; Pain 0/10; cr4 22:50 BP 134 / 98; Pulse 111; Resp 20; Temp 98.7; Pulse Ox 94% ; Pain 0/10; cr4 19:04 Body Mass Index 34.11 (92.99 kg, 165.10 cm) lp1 MDM: 20:16 Patient medically screened. [facility] 21:31 Data reviewed: vital signs, nurses notes. [facility] 21:31 Counseling: I had a detailed discussion with the patient and/or guardian regarding: the [facility] historical points, exam findings, and any diagnostic results supporting the discharge/admit diagnosis, the need for outpatient follow up, to return to the emergency department if symptoms worsen or persist or if there are any questions or concerns that arise at home. ED course: Patient is alert and non toxic in appearance in the ED. Patient and mother advised to follow up with pcp and otherwise given strict return precautions. Patient understood and agrees with the plan of care . 06/16 20:21 Order name: CBC with Diff; Complete Time: 21:14 [facility] 06/16 20:21 Order name: CMP; Complete Time: 21:21 [facility] 06/16 20:21 Order name: Chest Pa And Lat (2 Views) XRAY; Complete Time: 20:56 [facility] 06/16 20:22 Order name: Flu; Complete Time: 21:33 [facility] 06/16 20:22 Order name: Strep; Complete Time: 21:33 [facility] 06/16 21:27 Order name: Throat Culture [facility] 06/16 20:21 Order name: Saline Lock; Complete Time: 20:57 [facility] Administered Medications: 20:57 Drug: NS 0.9% 1000 ml Route: IV; Rate: 1 bolus; Site: left antecubital; cr4 22:00 Follow up: IV Status: Completed infusion; IV Intake: 100ml cr4 21:29 Drug: Rocephin - (cefTRIAXone) 1 grams Route: IVPB; Infused Over: 30 mins; Site: left cr4 antecubital; 22:00 Follow up: Response: No adverse reaction; IV Intake: 10ml cr4 22:12 Drug: Albuterol 2.5 mg Route: Inhalation; cr4 22:23 Follow up: Response: No adverse reaction cr4 22:12 Drug: Zofran 2 mg Route: IVP; Site: left antecubital; cr4 22:30 Follow up: Response: No adverse reaction; Vomiting decreased cr4 Disposition: 06/16/19 21:33 Discharged to Home. Impression: Pneumonia. - Condition is Stable. - Discharge Instructions: Community-Acquired Pneumonia, Adult. - Prescriptions for Augmentin 875- 125 mg Oral Tablet - take 1 tablet by ORAL route every 12 hours for 10 days; 20 tablet. - Medication Reconciliation Form, Thank You Letter, Antibiotic Education, Prescription Opioid Use form. - Follow up: Private Physician; When: 2 - 3 days; Reason: Recheck today's complaints, Continuance of care, Re-evaluation by your physician. Addendum: 06/19/2019 08:32 Co-signature as Attending Physician, Isaiah Ferrer MD I agree with the assessment and c phillips plan of care. Signatures: Dispatcher [employer] Isaiah Erwin MD MD cha Mickail, Joel, PA PA jmm Ruiz, Claudia, RN RN cr4 Lama, Adele, RN RN lp1 Corrections: (The following items were deleted from the chart) 06/16 22:54 21:33 06/16/2019 21:33 Discharged to Home. Impression: Pneumonia. Condition is Stable. cr4 Forms are Medication Reconciliation Form, Thank You Letter, Antibiotic Education, Prescription Opioid Use. Follow up: Private Physician; When: 2 - 3 days; Reason: Recheck today's complaints, Continuance of care, Re-evaluation by your physician. keith
[2019-06-16] MEDS ORDERED: IPRATROPIUM BROM 0.5MG/2.5ML ONE (22:03)
[2019-06-16] MEDS ORDERED: ALBUTEROL 2.5 MG/3 ML NEB SOL ONE (22:03)
[2019-06-16] MEDS ORDERED: ONDANSETRON 4 MG/2 ML VIAL ONE (22:04)
[2019-06-16 23:22] VITALS: BP 123/92; TEMP 99; O2SAT 95
== END 2019-06-16 22:54 | disposition home or self-care (01) ==
LOC: ER 18:58
DX: J18.9 Pneumonia, unspecified organism (principal); G40.909 Epilepsy, unspecified, not intractable, without status epilepticus; F32.9 Major depressive disorder, single episode, unspecified; F79 Unspecified intellectual disabilities; Z86.73 Personal history of transient ischemic attack (TIA), and cerebral infarction without residual deficits
CPT/HCPCS: 96361; 87070; 85025; 36415; 87081; 80053; 87804 ×2; 71046; 96375; 96374; 99284; J0696; J7030; J2405

== ENCOUNTER 2019-08-07 14:35 | Emergency (ER) | payer OTHER ==
--- NOTE | 2019-08-07 15:25 | ER ---
Nurse's Notes [facility] Name: Shan Faye Age: 33 yrs Sex: Male : 1985 Arrival Date: 08/07/2019 Time: 14:37 Bed 5 Private MD: Diagnosis: Epilepsy and recurrent seizures Presentation: 08/07 14:37 Presenting complaint: Witnessed seizure while at work. Mother on scene was able to hb catch pt and slowly lower to ground. Negative LOC. No injuries reported. SpO2 92% on RA, improved to 96% on 2LNC. BGL 108. Transition of care: patient was not received from another setting of care. Onset of symptoms was August 07, 2019. Risk Assessment: Do you want to hurt yourself or someone else? Patient reports no desire to harm self or others. Care prior to arrival: None. 14:37 Method Of Arrival: EMS: [facility] 14:37 Acuity: PAULINE 3 hb 14:43 Initial Sepsis Screen: Does the patient meet any 2 criteria? No. Patient's initial hb sepsis screen is negative. Does the patient have a suspected source of infection? No. Patient's initial sepsis screen is negative. Triage Assessment: 14:41 General: Appears in no apparent distress. Behavior is calm, cooperative. Pain: Denies hb pain. EENT: No signs and/or symptoms were reported regarding the EENT system. Neuro: Level of Consciousness is awake, alert, obeys commands, Oriented to person, place, time, situation. Cardiovascular: Capillary refill < 3 seconds Patient's skin is warm and dry. Respiratory: Airway is patent Respiratory effort is even, unlabored, Respiratory pattern is regular, symmetrical. GI: No signs and/or symptoms were reported involving the gastrointestinal system. : No signs and/or symptoms were reported regarding the genitourinary system. Derm: Skin is pink, warm \T\ dry. Musculoskeletal: No signs and/or symptoms reported regarding the musculoskeletal system. Historical: - Allergies: 14:41 No Known Drug Allergies; hb - Home Meds: 14:41 buspirone 7.5 mg Oral tab three times a day [Active]; citalopram 20 mg tab 1 tab once hb daily [Active]; Fycompa 8 mg Oral tab 1 tab once daily [Active]; Latuda 40 mg Oral tab 1 tab once daily [Active]; levetiracetam 750 mg Oral Tb24 1.5 tabs twice a day [Active]; - PMHx: 14:41 Anxiety; BRAIN DISORDER, ONE SIDE MORE DEVELOPED THAN THE OTHER; CVA (1993); hb Depression; mental retardation; Seizures; WHEELCHAIR BOUND, CAN AMBULATE WITH ASSITANCE. WEAKNESS; (no longer current. Pt ambulatory and able to perform ADL's); - PSHx: 14:41 Cholecystectomy; hb - Immunization history:: Adult Immunizations up to date. - Social history:: Smoking status: Patient/guardian denies using tobacco. - Ebola Screening: : No symptoms or risks identified at this time. - Family history:: not pertinent. Screenin:42 Abuse screen: Denies threats or abuse. Denies injuries from another. Nutritional hb screening: No deficits noted. Tuberculosis screening: No symptoms or risk factors identified. Fall Risk None identified. Assessment: 15:37 Reassessment: Patient appears in no apparent distress at this time. Patient is alert, sg oriented x 3, equal unlabored respirations, skin warm/dry/pink. at bedside, updating patient and pt family on instructions per , orders received to given PO Keppra dose and ativan, pt medicated see EMAR. Vital Signs: 14:41 BP 120 / 71; Pulse 72; Resp 16; Temp 97.3; Pulse Ox 100% on R/A; Weight 68.04 kg; hb Height 5 ft. 5 in. (165.10 cm); Pain 0/10; 15:35 BP 112 / 62; Pulse 70; Resp 16; Pulse Ox 100% on R/A; Pain 0/10; sg 14:41 Body Mass Index 24.96 (68.04 kg, 165.10 cm) hb [place] Coma Score: 14:40 Eye Response: spontaneous(4). Verbal Response: oriented(5). Motor Response: obeys hb commands(6). Total: 15. ED Course: 14:37 Patient arrived in ED. hb 14:38 Isaiah Ferrer MD is Attending Physician. [facility] 14:40 Triage completed. hb 14:41 Arm band placed on. hb 14:42 Patient has correct armband on for positive identification. Bed in low position. Call hb light in reach. Side rails up X2. Seizure precautions initiated. 15:18 EKG done, by billing and quality technician. reviewed by Isaiah Ferrer MD. sm3 15:24 Satinder Arreola MD is Referral Physician. [facility] 15:35 No provider procedures requiring assistance completed. Patient did not have IV access sg during this emergency room visit. Administered Medications: 15:31 Drug: Keppra 750 mg Route: PO; sg 15:31 Drug: Ativan 1 mg Route: PO; sg 15:42 Drug: Keppra 750 mg Route: PO; sg Outcome: 15:25 Discharge ordered by . [facility] 15:35 Discharged to home ambulatory, with family. sg 15:35 Condition: good 15:35 Discharge instructions given to patient, family, cyber systems operations specialist, Instructed on discharge instructions, follow up and referral plans. medication usage, safety practices, Demonstrated understanding of instructions, follow-up care, medications, Prescriptions given X 2. 15:37 Patient left the ED. sg 15:47 Patient left the ED. sg Signatures: Dano Campbell RN RN Isaiah Drake MD MD cha Baxter, Heather, RN RN eDb [place] [facility]
--- NOTE | 2019-08-07 15:26 | EDPHYS ---
Physician Documentation [facility] Name: Shan Faye Age: 33 yrs Sex: Male : 1985 Arrival Date: 08/07/2019 Time: 14:37 Bed 5 Private MD: CLAUDE Physician Isaiah Ferrer HPI: 08/07 15:21 This 33 yrs old Male presents to ER via EMS with complaints of Seizure. annie 15:21 The patient presents after having a single isolated seizure, that lasted 45 second(s). annie Character of seizure(s): Loss of consciousness: the patient did not lose consciousness, Motor activity: blank stare, Incontinence: none, Apnea: the patient did not experience apnea. Seizure onset: just prior to arrival. Context: the seizure(s) was witnessed, by family, mother. Seizure Hx: Last seizure: The patient's last seizure "not sure". Associated injury: The patient did not suffer any apparent associated injury. The patient has experienced similar episodes in the past, multiple times. Historical: - Allergies: 14:41 No Known Drug Allergies; hb - Home Meds: 14:41 buspirone 7.5 mg Oral tab three times a day [Active]; citalopram 20 mg tab 1 tab once hb daily [Active]; Fycompa 8 mg Oral tab 1 tab once daily [Active]; Latuda 40 mg Oral tab 1 tab once daily [Active]; levetiracetam 750 mg Oral Tb24 1.5 tabs twice a day [Active]; - PMHx: 14:41 Anxiety; BRAIN DISORDER, ONE SIDE MORE DEVELOPED THAN THE OTHER; CVA (1993); hb Depression; mental retardation; Seizures; WHEELCHAIR BOUND, CAN AMBULATE WITH ASSITANCE. WEAKNESS; (no longer current. Pt ambulatory and able to perform ADL's); - PSHx: 14:41 Cholecystectomy; hb - Immunization history:: Adult Immunizations up to date. - Social history:: Smoking status: Patient/guardian denies using tobacco. - Ebola Screening: : No symptoms or risks identified at this time. - Family history:: not pertinent. ROS: 15:21 Constitutional: Negative for fever, chills, and weight loss, Eyes: Negative for injury, annie pain, redness, and discharge, ENT: Negative for injury, pain, and discharge, Neck: Negative for injury, pain, and swelling, Cardiovascular: Negative for chest pain, palpitations, and edema, Respiratory: Negative for shortness of breath, cough, wheezing, and pleuritic chest pain, Abdomen/GI: Negative for abdominal pain, nausea, vomiting, diarrhea, and constipation, Back: Negative for injury and pain, : Negative for injury, bleeding, discharge, and swelling, MS/Extremity: Negative for injury and deformity, Skin: Negative for injury, rash, and discoloration, Psych: Negative for depression, anxiety, suicide ideation, homicidal ideation, and hallucinations, Allergy/Immunology: Negative for hives, rash, and allergies, Endocrine: Negative for neck swelling, polydipsia, polyuria, polyphagia, and marked weight changes, Hematologic/Lymphatic: Negative for swollen nodes, abnormal bleeding, and unusual bruising. 15:21 Neuro: Positive for seizure activity. Exam: 15:23 Constitutional: This is a well developed, well nourished patient who is awake, alert, annie and in no acute distress. Head/Face: Normocephalic, atraumatic. Eyes: Pupils equal round and reactive to light, extra-ocular motions intact. Lids and lashes normal. Conjunctiva and sclera are non-icteric and not injected. Cornea within normal limits. Periorbital areas with no swelling, redness, or edema. ENT: Nares patent. No nasal discharge, no septal abnormalities noted. Tympanic membranes are normal and external auditory canals are clear. Oropharynx with no redness, swelling, or masses, exudates, or evidence of obstruction, uvula midline. Mucous membranes moist. Neck: Trachea midline, no thyromegaly or masses palpated, and no cervical lymphadenopathy. Supple, full range of motion without nuchal rigidity, or vertebral point tenderness. No Meningismus. Chest/axilla: Normal chest wall appearance and motion. Nontender with no deformity. No lesions are appreciated. Cardiovascular: Regular rate and rhythm with a normal S1 and S2. No gallops, murmurs, or rubs. Normal PMI, no JVD. No pulse deficits. Respiratory: Lungs have equal breath sounds bilaterally, clear to auscultation and percussion. No rales, rhonchi or wheezes noted. No increased work of breathing, no retractions or nasal flaring. Abdomen/GI: Soft, non-tender, with normal bowel sounds. No distension or tympany. No guarding or rebound. No evidence of tenderness throughout. Back: No spinal tenderness. No costovertebral tenderness. Full range of motion. Skin: Warm, dry with normal turgor. Normal color with no rashes, no lesions, and no evidence of cellulitis. MS/ Extremity: Pulses equal, no cyanosis. Neurovascular intact. Full, normal range of motion. Neuro: Awake and alert, GCS 15, oriented to person, place, time, and situation. Cranial nerves II-XII grossly intact. Motor strength 5/5 in all extremities. Sensory grossly intact. Cerebellar exam normal. Normal gait. Psych: Awake, alert, with orientation to person, place and time. Behavior, mood, and affect are within normal limits. Vital Signs: 14:41 BP 120 / 71; Pulse 72; Resp 16; Temp 97.3; Pulse Ox 100% on R/A; Weight 68.04 kg; hb Height 5 ft. 5 in. (165.10 cm); Pain 0/10; 15:35 BP 112 / 62; Pulse 70; Resp 16; Pulse Ox 100% on R/A; Pain 0/10; sg 14:41 Body Mass Index 24.96 (68.04 kg, 165.10 cm) hb Benjamín Coma Score: 14:40 Eye Response: spontaneous(4). Verbal Response: oriented(5). Motor Response: obeys hb commands(6). Total: 15. MDM: 14:38 Patient medically screened. [facility] 15:24 Data reviewed: vital signs, nurses notes. [facility] 15:26 Physician consultation: Satinder Arreola MD and will see patient in office, NO CHANGES, annie KEEP MEDS THE SAME, NO LABS. Administered Medications: 15:31 Drug: Keppra 750 mg Route: PO; sg 15:31 Drug: Ativan 1 mg Route: PO; sg 15:42 Drug: Keppra 750 mg Route: PO; sg Disposition: 08/07/19 15:25 Discharged to Home. Impression: Epilepsy and recurrent seizures. - Condition is Stable. - Discharge Instructions: Seizure, Adult, Seizure, Adult, [id number]. - Prescriptions for Fycompa 8 mg Oral tablet - take 1 tablet by ORAL route once daily at bedtime; 20 tablet. Keppra 750 mg Oral Tablet - take 1 tablet by ORAL route every 12 hours; 30 tablet. - Work release form, Medication Reconciliation Form, Thank You Letter, Antibiotic Education, Prescription Opioid Use form. - Follow up: Private Physician; When: 2 - 3 days; Reason: Recheck today's complaints, Continuance of care, Re-evaluation by your physician. Follow up: Satinder Arreola MD; When: 2 - 3 days; Reason: Recheck today's complaints, Continuance of care, Re-evaluation by your physician. - Problem is new. - Symptoms have improved. Signatures: Dano Campbell RN RN Isaiah Drake MD MD cha Baxter, Heather RN RN Corrections: (The following items were deleted from the chart) 15:37 15:25 08/07/2019 15:25 Discharged to Home. Impression: Epilepsy and recurrent seizures. sg Condition is Stable. Forms are Medication Reconciliation Form, Thank You Letter, Antibiotic Education, Prescription Opioid Use. Follow up: Private Physician; When: 2 - 3 days; Reason: Recheck today's complaints, Continuance of care, Re-evaluation by your physician. Follow up: Satinder Arreola; When: 2 - 3 days; Reason: Recheck today's complaints, Continuance of care, Re-evaluation by your physician. Problem is new. Symptoms have improved. [facility] 15:47 15:37 08/07/2019 15:25 Discharged to Home. Impression: Epilepsy and recurrent seizures. sg Condition is Stable. Discharge Instructions: Seizure, Adult, Seizure, Adult, [id number]. Prescriptions for Fycompa 8 mg Oral tablet - take 1 tablet by ORAL route once daily at bedtime; 20 tablet, Keppra 750 mg Oral Tablet - take 1 tablet by ORAL route every 12 hours; 30 tablet. and Forms are Medication Reconciliation Form, Thank You Letter, Antibiotic Education, Prescription Opioid Use, Work release form. Follow up: Private Physician; When: 2 - 3 days; Reason: Recheck today's complaints, Continuance of care, Re-evaluation by your physician. Follow up: Satinder Arreola; When: 2 - 3 days; Reason: Recheck today's complaints, Continuance of care, Re-evaluation by your physician. Problem is new. Symptoms have improved. sg
[2019-08-07] MEDS ORDERED: levETIRAcetam 500 MG TAB ONE ×2 (15:28→15:42)
[2019-08-07] MEDS ORDERED: LORAZEPAM 1 MG TABLET ONE (15:33)
[2019-08-07 15:49] VITALS: BP 120/71; TEMP 97.3; O2SAT 100
--- NOTE | 2019-08-08 12:22 | EKG ---
Test Date: 2019-08-07 Test Time: 15:05:18 Box Spring Maker: KEVIN MEASUREMENT RESULTS: Intervals: Rate: 68 NV: 154 QRSD: 88 QT: 404 QTc: 429 [place]: P: 43 NV: 154 QRS: 21 T: 25 INTERPRETIVE STATEMENTS: Normal sinus rhythm Normal ECG Compared to ECG 04/17/2019 14:27:52 No significant changes Electronically Signed On 08-08-19 12:19:[address] LIGHT by Joseph Harris
== END 2019-08-07 15:47 | disposition home or self-care (01) ==
LOC: ER 14:35
DX: G40.802 Other epilepsy, not intractable, without status epilepticus (principal); F41.9 Anxiety disorder, unspecified; F32.9 Major depressive disorder, single episode, unspecified; F79 Unspecified intellectual disabilities; Z86.73 Personal history of transient ischemic attack (TIA), and cerebral infarction without residual deficits
CPT/HCPCS: 93005; 99284

== ENCOUNTER 2019-10-06 12:40 | Emergency (ER) | payer OTHER ==
[2019-10-06 13:21] LABS: Absolute Lymphocytes (CBC) 2.5 K/uL (0.7-4.9); Basophils % 0.9 % (0-1.3); Hematocrit 44.4 % (39.6-49.0); Lymphocytes % 39.8 % (15.3-44.8); MPV 8.9 fL (7.6-11.3); RBC Red Blood Cell Count 5.21 M/uL (4.33-5.43)
[2019-10-06 13:28] LABS: Albumin 4.1 g/dL (3.4-5.0); Bilirubin Total 0.6 mg/dL (0.2-1.0); Potassium 3.9 mmol/L (3.5-5.1)
[2019-10-06 13:31] LABS: Barbiturates NEGATIVE (NEGATIVE); Benzodiazepines NEGATIVE (NEGATIVE); Cocaine NEGATIVE (NEGATIVE); METHAMPHETAM NEGATIVE (NEGATIVE); Methadone NEGATIVE (NEGATIVE); Opiates NEGATIVE (NEGATIVE); Phencyclidine NEGATIVE (NEGATIVE); THC Cannibis NEGATIVE (NEGATIVE)
[2019-10-06 13:36] LABS: Urine Blood NEGATIVE (NEG); Urine Glucose NEGATIVE (NEG); Urine Protein NEGATIVE (NEG); Urine Specific Gravity 1.025 (1.005-1.030); Urine pH 5.5 (5.0-7.0)
--- NOTE | 2019-10-06 13:47 | EKG ---
Test Date: 2019-10-06 Test Time: 12:51:19 Service Attendant [employer]: MG MEASUREMENT RESULTS: Intervals: Rate: 79 NM: 152 QRSD: 86 QT: 376 QTc: 431 [place]: P: 31 NM: 152 QRS: 14 T: 22 INTERPRETIVE STATEMENTS: Normal sinus rhythm Normal ECG Compared to ECG 08/07/2019 15:05:18 No significant changes Electronically Signed On 10-06-19 13:46:41 PLANT CLERK by Joseph Harris
--- NOTE | 2019-10-06 14:42 | ER ---
Nurse's Notes [facility] Name: Sahn Faye Age: 34 yrs Sex: Male : 1985 Arrival Date: 10/06/2019 Time: 12:44 Bed 18 Private MD: Diagnosis: Epilepsy and recurrent seizures Presentation: 10/06 12:43 Presenting complaint: EMS states: patient came from break at work when a co-worker mg2 noticed he started to have a seizure, he was able to catch him and lay him down to the floor while he is having convulsion. it lasted for about 30 sec. on scene, patient ws already alert and orientedX4, BGL-120 mg/dl, NSR on EKG. he took his seizure meds today. while on route here he again had a seizure that lasted for about 15 sec. Transition of care: patient was not received from another setting of care. Onset of symptoms was October 06, 2019. Risk Assessment: Do you want to hurt yourself or someone else? Patient reports no desire to harm self or others. Initial Sepsis Screen: Does the patient meet any 2 criteria? No. Patient's initial sepsis screen is negative. Does the patient have a suspected source of infection? No. Patient's initial sepsis screen is negative. Care prior to arrival: None. 12:43 Method Of Arrival: EMS: [place] [id number] 12:43 Acuity: PAULINE 3 mg2 Triage Assessment: 13:06 General: Appears in no apparent distress. comfortable, Behavior is calm, cooperative. mg2 Pain: Denies pain. Historical: - Allergies: 13:06 No Known Allergies; mg2 - Home Meds: 13:06 buspirone 7.5 mg Oral tab three times a day [Active]; citalopram 20 mg tab 1 tab once mg2 daily [Active]; Fycompa 8 mg Oral tab 1 tab once daily [Active]; Latuda 40 mg Oral tab 1 tab once daily [Active]; levetiracetam 750 mg Oral Tb24 1.5 tabs twice a day [Active]; - PMHx: 13:06 Anxiety; BRAIN DISORDER, ONE SIDE MORE DEVELOPED THAN THE OTHER; CVA (1993); mg2 Depression; mental retardation; Seizures; WHEELCHAIR BOUND, CAN AMBULATE WITH ASSITANCE. WEAKNESS; (no longer current. Pt ambulatory and able to perform ADL's); - Immunization history:: Flu vaccine is not up to date. - Social history:: Smoking status: Patient/guardian denies using tobacco, Patient/guardian denies using alcohol, street drugs, IV drugs. - Ebola Screening: : No symptoms or risks identified at this time. Screenin:50 Abuse screen: Denies threats or abuse. Denies injuries from another. Nutritional mg2 screening: No deficits noted. Tuberculosis screening: No symptoms or risk factors identified. Fall Risk Secondary diagnosis (15 points) seizures, IV access (20 points). Assessment: 13:48 Reassessment: patient had 2 short episodes of seizure in ed. patient doesn't complain mg2 of headache nor confusion post activity. provider informed. patient continued to be monitored closely. mother at bedside. General: Appears in no apparent distress. comfortable, Behavior is calm, cooperative. Pain: Denies pain. Neuro: Level of Consciousness is awake, alert, obeys commands, Oriented to person, place, time, situation. Cardiovascular: Capillary refill < 3 seconds Patient's skin is warm and dry. Respiratory: Airway is patent Respiratory effort is even, unlabored, Respiratory pattern is regular, symmetrical. GI: No signs and/or symptoms were reported involving the gastrointestinal system. : No signs and/or symptoms were reported regarding the genitourinary system. EENT: No signs and/or symptoms were reported regarding the EENT system. Derm: Skin is intact, is healthy with good turgor, Skin is pink, warm \T\ dry. normal. Musculoskeletal: Circulation, motion, and sensation intact. Capillary refill < 3 seconds. 15:11 Reassessment: Patient appears in no apparent distress at this time. Patient and/or mg2 family updated on plan of care and expected duration. Pain level reassessed. no seizure activity noted now. patient is alert and oriented. Vital Signs: 13:06 BP 118 / 95; Pulse 80; Resp 18; Pulse Ox 94% on R/A; Weight 94.35 kg; Height 5 ft. 5 mg2 in. (165.10 cm); 13:50 BP 116 / 81; Pulse 72; Resp 18; Temp 98.6; Pulse Ox 97% on 4 lpm NC; mg2 15:11 BP 124 / 88; Pulse 81; Resp 18; Temp 98; Pulse Ox 100% on R/A; Pain 0/10; mg2 13:06 Body Mass Index 34.61 (94.35 kg, 165.10 cm) mg2 ED Course: 12:44 Patient arrived in ED. em1 12:46 Juan M Miramontes NP is PHCP. pm1 12:46 Matthew Guthrie MD is Attending Physician. pm1 13:01 Rg Stack, RN is Primary Nurse. mg2 13:04 Triage completed. mg2 13:06 Arm band placed on. mg2 13:50 No provider procedures requiring assistance completed. Maintain EMS IV. Dressing mg2 intact. Good blood return noted. Site clean \T\ dry. Gauge \T\ site: \T\ LAC. 13:51 Patient has correct armband on for positive identification. Pulse ox on. NIBP on. Door mg2 closed. Warm blanket given. 14:42 Satinder Arreola MD is Referral Physician. pm1 15:11 IV discontinued, intact, bleeding controlled, No redness/swelling at site. Pressure mg2 dressing applied. 15:12 Initial lab(s) drawn, by ga, sent to lab. [facility]. mg2 Administered Medications: 12:47 Drug: Ativan 1 mg Route: IVP; Site: left antecubital; iw 13:51 Follow up: Response: No adverse reaction; RASS: Alert and Calm (0) mg2 Outcome: 14:42 Discharge ordered by . pm1 15:12 Discharged to home via wheelchair, with family. mg2 15:12 Condition: stable 15:12 Discharge instructions given to patient, family, Instructed on discharge instructions, follow up and referral plans. Demonstrated understanding of instructions, follow-up care. 15:19 Patient left the ED. mg2 Signatures: Faye Bazan, RN RN Steve Brito em1 Juan M Miramontes NP MARBLE CEILING INSTALLER pm1 Rg Stack, PILLO FERRO mg2
--- NOTE | 2019-10-06 14:43 | EDPHYS ---
Physician Documentation [facility] Name: Shan Faye Age: 34 yrs Sex: Male : 1985 Arrival Date: 10/06/2019 Time: 12:44 Bed 18 Private MD: ED Physician Matthew Guthrie HPI: 10/06 12:50 This 34 yrs old Male presents to ER via EMS with complaints of Seizure. pm1 12:50 The patient presents the episode(s) was witnessed, by co-worker(s). Character of pm1 seizure(s): Loss of consciousness: the patient did not lose consciousness, Motor activity: generalized, Incontinence: none. Seizure onset: just prior to arrival. Context: the seizure(s) was witnessed, by co-worker(s), occurred at work, occurred while the patient was standing, Contributing factors: unknown, Patient was caught by his co-worker prior to falling. Seizure Hx: Seizure medications: Keppra, Latuda. Associated injury: The patient did not suffer any apparent associated injury. EMS care: none. Current symptoms: Currently, the patient is not experiencing any symptoms, the patient feels back to baseline. The patient has experienced similar episodes in the past, multiple times. Patient without any post-ictal period. Patient without any complaints of pain and is at baseline per mother. New for patient is the sensation of auras prior to seizures. Historical: - Allergies: 13:06 No Known Allergies; mg2 - Home Meds: 13:06 buspirone 7.5 mg Oral tab three times a day [Active]; citalopram 20 mg tab 1 tab once mg2 daily [Active]; Fycompa 8 mg Oral tab 1 tab once daily [Active]; Latuda 40 mg Oral tab 1 tab once daily [Active]; levetiracetam 750 mg Oral Tb24 1.5 tabs twice a day [Active]; - PMHx: 13:06 Anxiety; BRAIN DISORDER, ONE SIDE MORE DEVELOPED THAN THE OTHER; CVA (1993); mg2 Depression; mental retardation; Seizures; WHEELCHAIR BOUND, CAN AMBULATE WITH ASSITANCE. WEAKNESS; (no longer current. Pt ambulatory and able to perform ADL's); - Immunization history:: Flu vaccine is not up to date. - Social history:: Smoking status: Patient/guardian denies using tobacco, Patient/guardian denies using alcohol, street drugs, IV drugs. - Ebola Screening: : No symptoms or risks identified at this time. ROS: 13:09 Constitutional: Negative for fever, chills, and weight loss, Eyes: Negative for injury, pm1 pain, redness, and discharge, ENT: Negative for injury, pain, and discharge, Neck: Negative for injury, pain, and swelling, Cardiovascular: Negative for chest pain, palpitations, and edema, Respiratory: Negative for shortness of breath, cough, wheezing, and pleuritic chest pain, Abdomen/GI: Negative for abdominal pain, nausea, vomiting, diarrhea, and constipation, Back: Negative for injury and pain, MS/Extremity: Negative for injury and deformity, Skin: Negative for injury, rash, and discoloration. 13:09 Neuro: Positive for seizure activity, Negative for altered mental status, headache. Exam: 13:09 Constitutional: This is a well developed, well nourished patient who is awake, alert, pm1 and in no acute distress. Head/Face: Normocephalic, atraumatic. Eyes: Pupils equal round and reactive to light, extra-ocular motions intact. Lids and lashes normal. Conjunctiva and sclera are non-icteric and not injected. Cornea within normal limits. Periorbital areas with no swelling, redness, or edema. ENT: Nares patent. No nasal discharge, no septal abnormalities noted. Tympanic membranes are normal and external auditory canals are clear. Oropharynx with no redness, swelling, or masses, exudates, or evidence of obstruction, uvula midline. Mucous membranes moist. Neck: Trachea midline, no thyromegaly or masses palpated, and no cervical lymphadenopathy. Supple, full range of motion without nuchal rigidity, or vertebral point tenderness. No Meningismus. Chest/axilla: Normal chest wall appearance and motion. Nontender with no deformity. No lesions are appreciated. Cardiovascular: Regular rate and rhythm with a normal S1 and S2. No gallops, murmurs, or rubs. Normal PMI, no JVD. No pulse deficits. Respiratory: Lungs have equal breath sounds bilaterally, clear to auscultation and percussion. No rales, rhonchi or wheezes noted. No increased work of breathing, no retractions or nasal flaring. Abdomen/GI: Soft, non-tender, with normal bowel sounds. No distension or tympany. No guarding or rebound. No evidence of tenderness throughout. Back: No spinal tenderness. No costovertebral tenderness. Full range of motion. Skin: Warm, dry with normal turgor. Normal color with no rashes, no lesions, and no evidence of cellulitis. MS/ Extremity: Pulses equal, no cyanosis. Neurovascular intact. Full, normal range of motion. 13:09 Neuro: Orientation: is normal, Motor: is normal, moves all fours, Sensation: is normal, no obvious gross deficits. Vital Signs: 13:06 BP 118 / 95; Pulse 80; Resp 18; Pulse Ox 94% on R/A; Weight 94.35 kg; Height 5 ft. 5 mg2 in. (165.10 cm); 13:50 BP 116 / 81; Pulse 72; Resp 18; Temp 98.6; Pulse Ox 97% on 4 lpm NC; mg2 15:11 BP 124 / 88; Pulse 81; Resp 18; Temp 98; Pulse Ox 100% on R/A; Pain 0/10; mg2 13:06 Body Mass Index 34.61 (94.35 kg, 165.10 cm) mg2 MDM: 12:46 Patient medically screened. pm1 14:13 Data reviewed: vital signs. Data interpreted: Pulse oximetry: on room air is 97 %. pm1 Interpretation: normal. 14:39 Counseling: I had a detailed discussion with the patient and/or guardian regarding: the pm1 historical points, exam findings, and any diagnostic results supporting the discharge/admit diagnosis, lab results, radiology results, the need for outpatient follow up, a neurologist, to return to the emergency department if symptoms worsen or persist or if there are any questions or concerns that arise at home. 15:15 Physician consultation: Satinder Arreola MD was called at 15:10, was contacted at 15:10, pm1 regarding consult, patient's condition, and will see patient in office, next week, increase Keppra to 1500 mg BID from 1250 mg BID. 10/06 12:50 Order name: CBC with Diff; Complete Time: 13:38 pm1 10/06 12:50 Order name: CMP; Complete Time: 13:38 pm1 10/06 12:50 Order name: UDS; Complete Time: 13:38 pm1 10/06 13:10 Order name: Glucose, Ancillary Testing; Complete Time: 13:38 EDNC 10/06 13:25 Order name: Urine Dipstick--Ancillary (enter results); Complete Time: 13:38 em1 10/06 14:54 Order name: KEPPRA (LEVETIRACETAM) EDNC 10/06 12:50 Order name: EKG; Complete Time: 12:51 pm1 10/06 12:50 Order name: EKG - Nurse/Tech; Complete Time: 13:26 pm1 10/06 12:50 Order name: Urine Dipstick-Ancillary (obtain specimen); Complete Time: 13:16 pm1 10/06 12:51 Order name: Seizure Precautions; Complete Time: 13:08 pm1 Administered Medications: 12:47 Drug: Ativan 1 mg Route: IVP; Site: left antecubital; iw 13:51 Follow up: Response: No adverse reaction; RASS: Alert and Calm (0) mg2 Disposition: 10/06/19 14:42 Discharged to Home. Impression: Epilepsy and recurrent seizures. - Condition is Stable. - Discharge Instructions: Seizure, Adult, [id number]. - Medication Reconciliation Form, Thank You Letter, Antibiotic Education, Prescription Opioid Use, Work release form form. - Follow up: Emergency Department; When: As needed; Reason: Worsening of condition. Follow up: Satinder Arreola MD; When: As needed; Reason: Worsening of condition. - Problem is new. - Symptoms have improved. Addendum: 10/09/2019 06:59 Co-signature as Attending Physician, Matthew Guthrie MD I agree with the assessment and k dr plan of care. Signatures: Dispatcher [employer] [facility] Matthew Guthrie MD MD kdr Faye Bazan RN RN iw Juan M Miramontes, DIGITAL PRODUCT SPECIALIST DIGITAL PRODUCT SPECIALIST pm1 Rg Stack, PILLO RN mg2 Corrections: (The following items were deleted from the chart) 10/06 14:43 14:42 10/06/2019 14:42 Discharged to Home. Impression: Epilepsy and recurrent seizures. pm1 Condition is Stable. Forms are Medication Reconciliation Form, Thank You Letter, Antibiotic Education, Prescription Opioid Use. Follow up: Emergency Department; When: As needed; Reason: Worsening of condition. Follow up: Private Physician; When: 2 - 3 days; Reason: Recheck today's complaints, Continuance of care, Re-evaluation by your physician. Problem is new. Symptoms have improved. pm1 15:19 14:43 10/06/2019 14:42 Discharged to Home. Impression: Epilepsy and recurrent seizures. mg2 Condition is Stable. Discharge Instructions: Seizure, Adult, [id number]. Forms are Medication Reconciliation Form, Thank You Letter, Antibiotic Education, Prescription Opioid Use. Follow up: Emergency Department; When: As needed; Reason: Worsening of condition. Follow up: Satinder Arreola; When: As needed; Reason: Worsening of condition. Problem is new. Symptoms have improved. pm1
[2019-10-06 17:33] VITALS: BP 124/88; TEMP 98; O2SAT 100
== END 2019-10-06 15:19 | disposition home or self-care (01) ==
LOC: ER 12:40
DX: G40.802 Other epilepsy, not intractable, without status epilepticus (principal); F34.1 Dysthymic disorder
CPT/HCPCS: 36415; 80053; 80177; 80307; 81003; 82947; 85025; 93005; 96374; 99284

== ENCOUNTER 2019-11-27 13:38 | Emergency (ER) | payer OTHER ==
[2019-11-27] MEDS ORDERED: NA CHLORIDE 0.9% 1,000 ML ONE (14:34)
[2019-11-27 14:43] LABS: Absolute Lymphocytes (CBC) 2.4 K/uL (0.7-4.9); Basophils % 0.7 % (0-1.3); Hematocrit 43.4 % (39.6-49.0); Lymphocytes % 34.1 % (15.3-44.8); RBC Red Blood Cell Count 5.06 M/uL (4.33-5.43)
[2019-11-27 14:56] LABS: ALT/SGPT 109 U/L (12-78); AST/SGOT 57 U/L (15-37); Albumin 4.1 g/dL (3.4-5.0); Alkaline Phosphatase 52 U/L (45-117); BUN Blood Urea Nitrogen 8 mg/dL (7-18); Bicarbonate 27 mmol/L (21-32); Bilirubin Total 0.6 mg/dL (0.2-1.0); Glucose Level 86 mg/dL (74-106); Magnesium 2.1 mg/dL (1.8-2.4); Potassium 3.6 mmol/L (3.5-5.1); Protein, Total 7.7 g/dL (6.4-8.2); Sodium Level 141 mmol/L (136-145)
[2019-11-27] MEDS ORDERED: levETIRAcetam 1,000 MG in NA CHLORIDE 0.9% 100 ML IV ONE (15:00)
--- NOTE | 2019-11-27 16:44 | ER ---
Nurse's Notes [facility] Name: Shan Faye Age: 34 yrs Sex: Male : 1985 Arrival Date: 11/27/2019 Time: 13:48 Bed 3 Private MD: Diagnosis: Epilepsy and recurrent seizures Presentation: 11/27 13:52 Presenting complaint: EMS states: He was feeling okay today and went to work at [address] He was feeling lightheaded so they sat him down and then he had a seizure. They helped him to the floor. There were no trauma or injuries. 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 He was not post ictal when we arrived on scene. Reports recent admission to [facility] because "he had a seizure which they cannot stop". Pt has history of seizures and medications taken. His BP was normal. HR increases 10 pt from supine to sitting. BGL 105. 18G LAC. NS bolus 400ml given. Transition of care: patient was not received from another setting of care. Onset of symptoms was November 27, 2019. Risk Assessment: Do you want to hurt yourself or someone else? Patient reports no desire to harm self or others. Initial Sepsis Screen: Does the patient meet any 2 criteria? No. Patient's initial sepsis screen is negative. Does the patient have a suspected source of infection? No. Patient's initial sepsis screen is negative. Care prior to arrival: Medication(s) given: Normal saline infusion, 400 ML IV initiated. 18 GA, in the left antecubital area, Glucose check: 105. 13:52 Method Of Arrival: EMS: [facility] ca1 13:52 Acuity: PAULINE 3 ca1 Historical: - Allergies: 14:03 No Known Allergies; ca1 - Home Meds: 14:03 buspirone 7.5 mg Oral tab three times a day [Active]; Fycompa 8 mg Oral tab 1 tab once ca1 daily [Active]; levetiracetam 750 mg Oral Tb24 2 tabs twice a day [Active]; citalopram 20 mg tab 1 tab once daily [Active]; Latuda 40 mg Oral tab 1 tab once daily [Active]; - PMHx: 14:03 BRAIN DISORDER, ONE SIDE MORE DEVELOPED THAN THE OTHER; CVA (1993); Anxiety; ca1 Depression; mental retardation; Seizures; WHEELCHAIR BOUND, CAN AMBULATE WITH ASSITANCE. WEAKNESS; (no longer current. Pt ambulatory and able to perform ADL's); - PSHx: 14:03 Cholecystectomy; ca1 - Immunization history:: Adult Immunizations not up to date, Flu vaccine is not up to date. - Coronavirus screen:: The patient has NOT traveled to [place] in the past 14 days. The patient has NOT had contact with known/suspected case of Coronavirus?. - Social history:: Patient/guardian denies using alcohol, street drugs, The patient lives with family, with spouse, Smoking status: Patient denies any tobacco usage or history of. - Family history:: not pertinent. - Ebola Screening: : Patient negative for fever greater than or equal to 101.5 degrees Fahrenheit, and additional compatible Ebola Virus Disease symptoms Patient denies exposure to infectious person Patient denies travel to an Ebola-affected area in the 21 days before illness onset No symptoms or risks identified at this time. Screenin:04 Abuse screen: Denies threats or abuse. Denies injuries from another. Nutritional ca1 screening: No deficits noted. Tuberculosis screening: No symptoms or risk factors identified. Fall Risk IV access (20 points). Gait- Impaired (20 pts.). Total English Fall Scale indicates Low Risk Score (25-44 pts). Fall prevention measures have been instituted. Side Rails Up X 2 Family Present and informed to notify staff if they need to leave bedside As available Patient and Family Educated on Fall Prevention Program and strategies. Assessment: 13:55 General: Appears in no apparent distress. comfortable, Behavior is calm, cooperative. ca1 Pain: Denies pain. Neuro: Seizure activity reported prior to arrival. Neuro: Level of Consciousness is awake, alert, obeys commands, Oriented to person, place. Cardiovascular: Heart tones S1 S2 present Capillary refill is > 3 seconds Patient's skin is warm and dry. Rhythm is sinus rhythm. Respiratory: Airway is patent Respiratory effort is even, unlabored. GI: Abdomen is round non-distended, Bowel sounds present X 4 quads. Abd is soft and non tender X 4 quads. Parent/caregiver reports the patient having diarrhea, pain, since yesterday but not today. : No signs and/or symptoms were reported regarding the genitourinary system. EENT: No signs and/or symptoms were reported regarding the EENT system. Derm: Skin is intact, is healthy with good turgor, Skin is pink, warm \\T\\ dry. Musculoskeletal: Circulation, motion, and sensation intact. Capillary refill < 3 seconds. 14:43 Reassessment: Patient appears in no apparent distress at this time. Patient is alert, ca1 oriented x 3, equal unlabored respirations, skin warm/dry/pink. Mother at bedside. 15:15 Reassessment: Patient appears in no apparent distress at this time. Patient is alert, ca1 oriented x 3, equal unlabored respirations, skin warm/dry/pink. Vital Signs: 14:03 BP 117 / 82; Pulse 74; Resp 17 S; Temp 96.7(TE); Pulse Ox 93% on R/A; Weight 97.07 kg ca1 (R); Height 5 ft. 5 in. (165.10 cm) (R); Pain 0/10; 14:43 BP 115 / 91; Pulse 95; Resp 14 S; Pulse Ox 96% on R/A; ca1 14:03 Body Mass Index 35.61 (97.07 kg, 165.10 cm) ca1 ED Course: 13:48 Patient arrived in ED. iw 13:48 Rosalie Reyes MD is Attending Physician. ma2 13:52 Caty Sandoval RN is Primary Nurse. ca1 13:58 Triage completed. ca1 14:03 Arm band placed on right wrist. ca1 14:04 Patient has correct armband on for positive identification. Bed in low position. Call ca1 light in reach. Side rails up X2. Adult w/ patient. bale opener on. Pulse ox on. NIBP on. Warm blanket given. 14:04 Seizure precautions initiated. ca1 14:04 No provider procedures requiring assistance completed. Maintain EMS IV. Dressing ca1 intact. Good blood return noted. Site clean \\T\\ dry. Gauge \\T\\ site: G18 LAC. 14:29 Initial lab(s) drawn, by me, sent to lab. em1 15:23 IV discontinued, intact, bleeding controlled, No redness/swelling at site. Pressure ca1 dressing applied. Administered Medications: 14:30 Drug: NS 0.9% 1000 ml Route: IV; Rate: 1 bolus; Site: left antecubital; ca1 15:15 Follow up: Response: No adverse reaction; IV Status: Completed infusion ca1 14:47 Drug: Keppra 1000 mg Route: IV; Rate: calculated rate; Site: left antecubital; ca1 15:03 Follow up: Response: No adverse reaction; IV Status: Completed infusion ca1 Outcome: 15:14 Discharge ordered by . daniel 15:23 Discharged to home ambulatory, with family. ca1 15:23 Condition: stable 15:23 Discharge instructions given to patient, family, Instructed on discharge instructions, follow up and referral plans. Demonstrated understanding of instructions, follow-up care. 15:25 Patient left the ED. ca1 Signatures: Faye Bazan, RN RN iw Steve Mckinley em1 Rosalie Reyes MD MD ma2 Caty Sandoval RN RN ca1 Corrections: (The following items were deleted from the chart) 15:02 13:55 Neuro: Level of Consciousness is awake, alert, obeys commands, Oriented to ca1 person, place, time, situation, ca1
--- NOTE | 2019-11-27 16:45 | EDPHYS ---
Physician Documentation [facility] Name: Shan Faye Age: 34 yrs Sex: Male : 1985 Arrival Date: 11/27/2019 Time: 13:48 Bed 3 Private MD: ED Physician Rosalie Reyes HPI: 11/27 14:35 This 34 yrs old Male presents to ER via EMS with complaints of seizure. ma2 14:35 2 episodes , mom at bedside, takes susanna ibrahim . Severity of symptoms: At their ma2 worst the symptoms were mild in the emergency department the symptoms are unchanged. Historical: - Allergies: 14:03 No Known Allergies; ca1 - Home Meds: 14:03 buspirone 7.5 mg Oral tab three times a day [Active]; Fycompa 8 mg Oral tab 1 tab once ca1 daily [Active]; levetiracetam 750 mg Oral Tb24 2 tabs twice a day [Active]; citalopram 20 mg tab 1 tab once daily [Active]; Latuda 40 mg Oral tab 1 tab once daily [Active]; - PMHx: 14:03 BRAIN DISORDER, ONE SIDE MORE DEVELOPED THAN THE OTHER; CVA (1993); Anxiety; ca1 Depression; mental retardation; Seizures; WHEELCHAIR BOUND, CAN AMBULATE WITH ASSITANCE. WEAKNESS; (no longer current. Pt ambulatory and able to perform ADL's); - PSHx: 14:03 Cholecystectomy; ca1 - Immunization history:: Adult Immunizations not up to date, Flu vaccine is not up to date. - Coronavirus screen:: The patient has NOT traveled to [place] in the past 14 days. The patient has NOT had contact with known/suspected case of Coronavirus?. - Social history:: Patient/guardian denies using alcohol, street drugs, The patient lives with family, with spouse, Smoking status: Patient denies any tobacco usage or history of. - Family history:: not pertinent. - Ebola Screening: : Patient negative for fever greater than or equal to 101.5 degrees Fahrenheit, and additional compatible Ebola Virus Disease symptoms Patient denies exposure to infectious person Patient denies travel to an Ebola-affected area in the 21 days before illness onset No symptoms or risks identified at this time. ROS: 14:35 Eyes: Negative for injury, pain, redness, and discharge. ma2 14:35 All other systems are negative. Exam: 14:35 Constitutional: This is a well developed, well nourished patient who is awake, alert, ma2 and in no acute distress. Chest/axilla: Normal chest wall appearance and motion. Nontender with no deformity. No lesions are appreciated. Cardiovascular: Regular rate and rhythm with a normal S1 and S2. No gallops, murmurs, or rubs. Normal PMI, no JVD. No pulse deficits. Respiratory: Lungs have equal breath sounds bilaterally, clear to auscultation and percussion. No rales, rhonchi or wheezes noted. No increased work of breathing, no retractions or nasal flaring. Abdomen/GI: Soft, non-tender, with normal bowel sounds. No distension or tympany. No guarding or rebound. No evidence of tenderness throughout. Skin: Warm, dry with normal turgor. Normal color with no rashes, no lesions, and no evidence of cellulitis. MS/ Extremity: Pulses equal, no cyanosis. Neurovascular intact. Full, normal range of motion. Neuro: Awake and alert, GCS 15, oriented to person, place, time, and situation. Cranial nerves II-XII grossly intact. Motor strength 5/5 in all extremities. Sensory grossly intact. Cerebellar exam normal. Normal gait. Vital Signs: 14:03 BP 117 / 82; Pulse 74; Resp 17 S; Temp 96.7(TE); Pulse Ox 93% on R/A; Weight 97.07 kg ca1 (R); Height 5 ft. 5 in. (165.10 cm) (R); Pain 0/10; 14:43 BP 115 / 91; Pulse 95; Resp 14 S; Pulse Ox 96% on R/A; ca1 14:03 Body Mass Index 35.61 (97.07 kg, 165.10 cm) ca1 MDM: 13:48 Patient medically screened. ma2 14:35 Differential Diagnosis dehydration, electrolytes abdormality, break throgh seizure '. ma2 Data reviewed: vital signs, nurses notes. Counseling: I had a detailed discussion with the patient and/or guardian regarding: the historical points, exam findings, and any diagnostic results supporting the discharge/admit diagnosis, the presence of at least one elevated blood pressure reading (>120/80) during this emergency department visit, the need for outpatient follow up. Medical screen evaluation completed. EMTALA emergency medical condition absent. Response to treatment: the patient's symptoms have resolved after treatment. 11/27 14:06 Order name: CBC with Diff; Complete Time: 14:55 ma2 11/27 14:06 Order name: CMP; Complete Time: 15:14 ma2 11/27 14:07 Order name: Magnesium; Complete Time: 15:14 ma2 Administered Medications: 14:30 Drug: NS 0.9% 1000 ml Route: IV; Rate: 1 bolus; Site: left antecubital; ca1 15:15 Follow up: Response: No adverse reaction; IV Status: Completed infusion ca1 14:47 Drug: Keppra 1000 mg Route: IV; Rate: calculated rate; Site: left antecubital; ca1 15:03 Follow up: Response: No adverse reaction; IV Status: Completed infusion ca1 Disposition: 11/27/19 15:14 Discharged to Home. Impression: Epilepsy and recurrent seizures. - Condition is Stable. - Discharge Instructions: Seizure, Adult. - Work release form, Family Work Release, Medication Reconciliation Form, Thank You Letter, Antibiotic Education, Prescription Opioid Use form. - Follow up: Private Physician; When: Tomorrow; Reason: If symptoms return. Signatures: Dispatcher [employer] EDMS Rosalie Reyes MD MD va2 Caty Sandoval RN RN ca1 Corrections: (The following items were deleted from the chart) 15:25 15:14 11/27/2019 15:14 Discharged to Home. Impression: Epilepsy and recurrent seizures. ca1 Condition is Stable. Forms are Medication Reconciliation Form, Thank You Letter, Antibiotic Education, Prescription Opioid Use. Follow up: Private Physician; When: Tomorrow; Reason: If symptoms return. ma2
[2019-11-27 16:50] VITALS: TEMP 96.7
[2019-11-27 16:51] VITALS: BP 115/91; O2SAT 96
== END 2019-11-27 15:25 | disposition home or self-care (01) ==
LOC: ER 13:38
DX: G40.802 Other epilepsy, not intractable, without status epilepticus (principal); F34.1 Dysthymic disorder; F79 Unspecified intellectual disabilities
CPT/HCPCS: 96365; 85025; 36415; 83735; 80053; 99284; J1953; J7030

== ENCOUNTER 2020-01-11 21:55 | Emergency (ER) | payer OTHER ==
--- NOTE | 2020-01-11 22:40 | ER ---
Nurse's Notes [facility] Name: Shan Faye Age: 34 yrs Sex: Male : 1985 Arrival Date: 01/11/2020 Time: 21:58 Bed 24 Private MD: Diagnosis: Anxiety disorder, unspecified Presentation: 01/10 22:12 Chief complaint: Parent and/or Guardian states: "He has a history of anxiety and jd3 seizures when his he has anxiety attacks. since yesterday he has had anxiety that his normal meds aren't helping with.". Coronavirus screen: Proceed with normal triage. Ebola Screen: Patient negative for fever greater than or equal to 101.5 degrees Fahrenheit, and additional compatible Ebola Virus Disease symptoms. Initial Sepsis Screen: Does the patient meet any 2 criteria? No. Patient's initial sepsis screen is negative. Does the patient have a suspected source of infection? No. Patient's initial sepsis screen is negative. Risk Assessment: Do you want to hurt yourself or someone else? Patient reports no desire to harm self or others. Onset of symptoms was January 10, 2020. 22:12 Method Of Arrival: Wheelchair jd3 22:12 Acuity: PAULINE 4 jd3 Historical: - Allergies: 22:15 No Known Allergies; jd3 - Home Meds: 22:15 buspirone 7.5 mg Oral tab three times a day [Active]; citalopram 20 mg tab 1 tab once jd3 daily [Active]; Latuda 40 mg Oral tab 1 tab once daily [Active]; Fycompa 8 mg Oral tab 1 tab once daily [Active]; levetiracetam 750 mg Oral Tb24 2 tabs twice a day [Active]; - PMHx: 22:15 Anxiety; BRAIN DISORDER, ONE SIDE MORE DEVELOPED THAN THE OTHER; CVA (1993); jd3 Depression; mental retardation; Seizures; WHEELCHAIR BOUND, CAN AMBULATE WITH ASSITANCE. WEAKNESS; (no longer current. Pt ambulatory and able to perform ADL's); - PSHx: 22:15 Cholecystectomy; jd3 - Immunization history:: Adult Immunizations up to date. - Social history:: Smoking status: Patient denies any tobacco usage or history of. Vital Signs: 22:15 BP 126 / 91; Pulse 89; Resp 17 S; Temp 97.9(A); Pulse Ox 95% on R/A; Weight 59.87 kg jd3 (R); Pain 0/10; ED Course: 21:58 Patient arrived in ED. ds1 22:13 Rainer Kerr PA is PHCP. keith 22:13 Rosalie Reyes MD is Attending Physician. jmm 22:14 Triage completed. jd3 22:16 Arm band placed on. jd3 22:30 Ella Harrison, RN is Primary Nurse. ls4 Administered Medications: 22:45 Drug: Ativan 1 mg Route: PO; ls4 22:55 Follow up: Response: No adverse reaction ls4 23:35 Follow up: Response: No adverse reaction ls4 Outcome: 22:39 Discharge ordered by . m 22:46 Patient left the ED. ls4 Signatures: Rainer Kerr PA PA jmm Sanford, Demi ds1 Te Dugan RN RN jElla Clement, RN RN ls4
--- NOTE | 2020-01-11 22:40 | EDPHYS ---
Physician Documentation [facility] Name: Shan Faye Age: 34 yrs Sex: Male : 1985 Arrival Date: 01/11/2020 Time: 21:58 Bed 24 Private MD: ED Physician Rosalie Reyes HPI: 01/10 22:35 This 34 yrs old Male presents to ER via Wheelchair with complaints of Anxiety, jmm Seizure. 22:35 The patient presents to the emergency department with anxiety. Onset: The jmm symptoms/episode began/occurred 1 day(s) ago. This is a 34 year old male with a history of anxiety that presents to the ED with increased anxiety over the past day. Mother concerned the patient may develop a seizure. Patient takes buspirone 10 mg. . Historical: - Allergies: 22:15 No Known Allergies; jd3 - Home Meds: 22:15 buspirone 7.5 mg Oral tab three times a day [Active]; citalopram 20 mg tab 1 tab once jd3 daily [Active]; Latuda 40 mg Oral tab 1 tab once daily [Active]; Fycompa 8 mg Oral tab 1 tab once daily [Active]; levetiracetam 750 mg Oral Tb24 2 tabs twice a day [Active]; - PMHx: 22:15 Anxiety; BRAIN DISORDER, ONE SIDE MORE DEVELOPED THAN THE OTHER; CVA (1993); jd3 Depression; mental retardation; Seizures; WHEELCHAIR BOUND, CAN AMBULATE WITH ASSITANCE. WEAKNESS; (no longer current. Pt ambulatory and able to perform ADL's); - PSHx: 22:15 Cholecystectomy; jd3 - Immunization history:: Adult Immunizations up to date. - Social history:: Smoking status: Patient denies any tobacco usage or history of. ROS: 22:35 Constitutional: Negative for fever, chills, and weight loss, Cardiovascular: Negative jmm for chest pain, palpitations, and edema, Respiratory: Negative for shortness of breath, cough, wheezing, and pleuritic chest pain. 22:35 Psych: Positive for anxiety. 22:35 All other systems are negative. Exam: 22:35 Constitutional: This is a well developed, well nourished patient who is awake, alert, jmm and in no acute distress. Head/Face: atraumatic. Eyes: EOMI, no conjunctival erythema appreciated ENT: Moist Mucus Membranes Neck: Trachea midline, Supple Chest/axilla: Normal chest wall appearance and motion. Cardiovascular: Regular rate and rhythm. No edema appreciated Respiratory: Normal respirations, no respiratory distress appreciated Abdomen/GI: Non distended, soft Back: Normal ROM Skin: General appearance color normal MS/ Extremity: Moves all extremities, no obvious deformities appreciated, no edema noted to the lower extremities Neuro: Awake and alert, normal gait Psych: Behavior is normal, Mood is normal, Patient is cooperative and pleasant Vital Signs: 22:15 BP 126 / 91; Pulse 89; Resp 17 S; Temp 97.9(A); Pulse Ox 95% on R/A; Weight 59.87 kg jd3 (R); Pain 0/10; MDM: 22:15 Patient medically screened. [facility] 22:35 Data reviewed: vital signs, nurses notes. Counseling: I had a detailed discussion with keith the patient and/or guardian regarding: the historical points, exam findings, and any diagnostic results supporting the discharge/admit diagnosis, the need for outpatient follow up, to return to the emergency department if symptoms worsen or persist or if there are any questions or concerns that arise at home. ED course: Patient is alert and non toxic in appearance in the ED. Mother is given strict return precautions. Mother understood and agrees with the plan of care. . Administered Medications: 22:45 Drug: Ativan 1 mg Route: PO; ls4 22:55 Follow up: Response: No adverse reaction ls4 23:35 Follow up: Response: No adverse reaction ls4 Disposition: 01/11 06:51 Co-signature as Attending Physician, Rosalie Reyes MD. [facility] Disposition: 01/11/20 22:39 Discharged to Home. Impression: Anxiety disorder, unspecified. - Condition is Stable. - Discharge Instructions: Panic Attacks. - Prescriptions for Hydroxyzine HCl 25 mg Oral Tablet - take 1 tablet by ORAL route every 6 hours As needed; 30 tablet. - Medication Reconciliation Form, Thank You Letter, Antibiotic Education, Prescription Opioid Use form. - Follow up: Private Physician; When: 2 - 3 days; Reason: Recheck today's complaints, Continuance of care, Re-evaluation by your physician. Signatures: Rainer Kerr PA PA jmm Davies, Jonathon, RN RN jd3 Rosalie Reyes MD MD ma2 Ella Harrison RN RN ls4 Corrections: (The following items were deleted from the chart) 01/10 22:46 22:39 01/11/2020 22:39 Discharged to Home. Impression: Anxiety disorder, unspecified. ls4 Condition is Stable. Forms are Medication Reconciliation Form, Thank You Letter, Antibiotic Education, Prescription Opioid Use. Follow up: Private Physician; When: 2 - 3 days; Reason: Recheck today's complaints, Continuance of care, Re-evaluation by your physician. keith
[2020-01-11] MEDS ORDERED: LORAZEPAM 1 MG TABLET ONE (22:44)
[2020-01-11 22:51] VITALS: BP 126/91; TEMP 97.9; O2SAT 95
== END 2020-01-11 22:46 | disposition home or self-care (01) ==
LOC: ER 21:55
DX: F41.9 Anxiety disorder, unspecified (principal); F32.9 Major depressive disorder, single episode, unspecified; G40.909 Epilepsy, unspecified, not intractable, without status epilepticus; G93.9 Disorder of brain, unspecified
CPT/HCPCS: 99282

== ENCOUNTER 2020-08-14 21:12 | Emergency (ER) | payer OTHER ==
[2020-08-14 23:07] LABS: Absolute Lymphocytes (CBC) 3.3 K/uL (0.7-4.9); Basophils % 0.7 % (0-1.3); Hematocrit 41.6 % (39.6-49.0); Lymphocytes % 45.5 % (15.3-44.8); MPV 8.6 fL (7.6-11.3); RBC Red Blood Cell Count 4.89 M/uL (4.33-5.43)
[2020-08-14 23:19] LABS: Protime INR 0.93
[2020-08-14 23:46] LABS: ALT/SGPT 129 U/L (12-78); AST/SGOT 55 U/L (15-37); Albumin 3.9 g/dL (3.4-5.0); Alkaline Phosphatase 78 U/L (45-117); BUN Blood Urea Nitrogen 8 mg/dL (7-18); Bicarbonate 26 mmol/L (21-32); Bilirubin Direct < 0.1 mg/dL (0-0.2); Bilirubin Total 0.4 mg/dL (0.2-1.0); Glucose Level 177 mg/dL (74-106); Potassium 3.2 mmol/L (3.5-5.1); Protein, Total 7.9 g/dL (6.4-8.2); Sodium Level 140 mmol/L (136-145)
[2020-08-15] MEDS ORDERED: POTASSIUM CL SA 10 MEQ TAB PO ONE (00:16)
[2020-08-15 00:35] LABS: Barbiturates NEGATIVE (NEGATIVE); Benzodiazepines NEGATIVE (NEGATIVE); Cocaine NEGATIVE (NEGATIVE); METHAMPHETAM NEGATIVE (NEGATIVE); Methadone NEGATIVE (NEGATIVE); Opiates NEGATIVE (NEGATIVE); Phencyclidine NEGATIVE (NEGATIVE); THC Cannibis NEGATIVE (NEGATIVE)
--- NOTE | 2020-08-15 02:05 | EDPHYS ---
Physician Documentation [facility] Name: Shan Faye Age: 34 yrs Sex: Male : 1985 Arrival Date: 08/14/2020 Time: 21:12 Bed 26 Private MD: ED Physician Jose Eduardo Momin HPI: 08/14 22:24 This 34 yrs old Male presents to ER via Ambulatory with complaints of Hand kb Injury. 22:24 The patient or guardian reports injury, pain, swelling, tenderness. The complaints kb affect the dorsum of left hand. Context: The problem was sustained at home, resulted from using own fist to strike, a wall. Onset: The symptoms/episode began/occurred just prior to arrival. Modifying factors: The symptoms are alleviated by nothing, the symptoms are aggravated by nothing. Associated signs and symptoms: The patient has no apparent associated signs or symptoms. Severity of symptoms: At their worst the symptoms were moderate, in the emergency department the symptoms are unchanged. The patient has not experienced similar symptoms in the past. The patient has not recently seen a physician. 22:29 Pt reports he got mad at his mom and punched the wall. kb Historical: - Allergies: 22:30 No Known Allergies; rv - PMHx: 22:30 Anxiety; BRAIN DISORDER, ONE SIDE MORE DEVELOPED THAN THE OTHER; CVA (1993); rv Depression; mental retardation; Seizures; WHEELCHAIR BOUND, CAN AMBULATE WITH ASSITANCE. WEAKNESS; (no longer current. Pt ambulatory and able to perform ADL's); - PSHx: 22:30 Unable to obtain; rv - Immunization history:: Adult Immunizations up to date. - Social history:: Smoking status: unknown. ROS: 22:23 Constitutional: Negative for fever, chills, and weight loss, Cardiovascular: Negative kb for chest pain, palpitations, and edema, Respiratory: Negative for shortness of breath, cough, wheezing, and pleuritic chest pain, Abdomen/GI: Negative for abdominal pain, nausea, vomiting, diarrhea, and constipation, Back: Negative for injury and pain, Skin: Negative for injury, rash, and discoloration, Neuro: Negative for headache, weakness, numbness, tingling, and seizure. 22:23 MS/extremity: Positive for injury or acute deformity, ecchymosis, pain, swelling, tenderness, of the dorsum of left hand. Exam: 22:23 Constitutional: This is a well developed, well nourished patient who is awake, alert, kb and in no acute distress. Head/Face: Normocephalic, atraumatic. Chest/axilla: Normal chest wall appearance and motion. Nontender with no deformity. No lesions are appreciated. Cardiovascular: Regular rate and rhythm with a normal S1 and S2. No gallops, murmurs, or rubs. Normal PMI, no JVD. No pulse deficits. Respiratory: Lungs have equal breath sounds bilaterally, clear to auscultation and percussion. No rales, rhonchi or wheezes noted. No increased work of breathing, no retractions or nasal flaring. Abdomen/GI: Soft, non-tender, with normal bowel sounds. No distension or tympany. No guarding or rebound. No evidence of tenderness throughout. Skin: Warm, dry with normal turgor. Normal color with no rashes, no lesions, and no evidence of cellulitis. Neuro: Awake and alert, GCS 15, oriented to person, place, time, and situation. Cranial nerves II-XII grossly intact. Motor strength 5/5 in all extremities. Sensory grossly intact. Cerebellar exam normal. Normal gait. 22:23 Musculoskeletal/extremity: Extremities: grossly normal except: noted in the dorsum of left hand: ecchymosis, pain, swelling, tenderness, ROM: intact in all extremities, Circulation is intact in all extremities. Sensation intact. Vital Signs: 21:32 BP 141 / 105; Pulse 74; Resp 18; Temp 97.9; Pulse Ox 97% on R/A; Weight 105.69 kg; dm5 Height 5 ft. 5 in. (165.10 cm); Pain 10/13; 08/15 02:43 BP 136 / 89 LA Supine (auto/reg); Pulse 67 LA; Resp 16; Temp 97.9(O); Pulse Ox 96% on jb5 R/A; 06:42 BP 131 / 88 LA Supine; Pulse 67; Resp 16; Temp 98.1(O); Pulse Ox 95% on R/A; jb5 08/14 21:32 Body Mass Index 38.77 (105.69 kg, 165.10 cm) dm5 MDM: 08/14 21:42 Patient medically screened. kb 22:23 Data reviewed: vital signs, nurses notes. Data interpreted: Pulse oximetry: on room air kb is 97 %. Interpretation: normal. 22:28 ED course: Mother states she is afraid that pt will hurt her and she does not feel kb safe. Pt admits that he will hurt mother if he goes home with her. . 08/15 00:42 Transition of care: After a detail discussion of the patient's case, care is kb transferred to Jose Eduardo Momin MD. ED course: [facility] stanislav recommends inpatient treatment. 01:26 ED course: Doc-to-doc called, spoke with Dr Bejarano, who declines transfer, states will rn reconsider in morning. . 02:02 Differential diagnosis: closed fracture, contusion. Counseling: I had a detailed rn discussion with the patient and/or guardian regarding: the historical points, exam findings, and any diagnostic results supporting the discharge/admit diagnosis, radiology results. ED course: Accepted for transfer to [facility] after doc-to-doc. 06:14 ED course: Spoke with doctor for doc-to-doc, accepted for transfer. . rn 08/14 22:27 Order name: Acetaminophen; Complete Time: 23:53 kb 08/14 22:27 Order name: Basic Metabolic Panel; Complete Time: 23:53 kb 08/14 22:27 Order name: CBC with Diff; Complete Time: 23:16 kb 08/14 22:27 Order name: ETOH Level; Complete Time: 23:43 kb 08/14 22:27 Order name: Hepatic Function; Complete Time: 23:53 kb 08/14 22:27 Order name: PT-INR; Complete Time: 23:21 kb 08/14 21:39 Order name: Hand Left 3 View XRAY dm5 08/14 22:27 Order name: Ptt, Activated; Complete Time: 23:21 kb 08/14 22:27 Order name: Salicylate; Complete Time: 23:43 kb 08/14 22:27 Order name: Urine Drug Screen; Complete Time: 00:36 kb 08/14 22:27 Order name: EKG - Nurse/Tech; Complete Time: 00:09 kb 08/14 22:27 Order name: IV Saline Lock; Complete Time: 00:09 kb 08/14 22:27 Order name: Labs collected and sent; Complete Time: 00:09 kb 08/14 22:27 Order name: Urine Dipstick-Ancillary (obtain specimen); Complete Time: 00:09 kb Administered Medications: 00:08 Drug: Potassium Chloride 40 mEq Route: PO; rv 01:00 Follow up: Response: No adverse reaction bb Disposition: 08/15/20 02:04 Transfer ordered to Psych Facility. Diagnosis are Homicidal ideations, Contusion of left hand. - Reason for transfer: Higher level of care. - Accepting physician is . - Condition is Stable. - Problem is new. - Symptoms are unchanged. Addendum: 08/17/2020 07:06 Co-signature as Attending Physician, Jose Eduardo Momin MD. r n Signatures: Dispatcher [employer] EDMS Britt Ambrocio, NATI-C SURGEON'S ASSISTANT-Kate Davila RN RN Jose Eduardo Patton MD MD rn Vicente, Ronaldo, RN RN rv Corrections: (The following items were deleted from the chart) 08/14 22:29 22:23 Counseling: I had a detailed discussion with the patient and/or guardian kristy regarding: the historical points, exam findings, and any diagnostic results supporting the discharge/admit diagnosis, radiology results, the need for outpatient follow up, a family practitioner, to return to the emergency department if symptoms worsen or persist or if there are any questions or concerns that arise at home, kristy 08/15 06:53 02:04 08/15/2020 02:04 Transfer ordered to Psych Facility. Diagnosis is Homicidal bb ideations; Contusion of left hand. Reason for transfer: Higher level of care. Accepting physician is . Condition is Stable. Problem is new. Symptoms are unchanged. rn
--- NOTE | 2020-08-15 02:05 | ER ---
Nurse's Notes [facility] Name: Shan Faye Age: 34 yrs Sex: Male : 1985 Arrival Date: 08/14/2020 Time: 21:12 Bed 26 Private MD: Diagnosis: Homicidal ideations;Contusion of left hand Presentation: 08/14 21:32 Chief complaint: Patient states: pt hit wall of house inside. Pt rates pain at a 1/10 dm5 at this time. This happened to day between 1600 and 1700. Some swelling and brusing noted at this time. Coronavirus screen: Client denies travel out of the [place] in the last 14 days. At this time, the client does not indicate any symptoms associated with coronavirus-19. Ebola Screen: Patient negative for fever greater than or equal to 101.5 degrees Fahrenheit, and additional compatible Ebola Virus Disease symptoms Patient denies exposure to infectious person. Patient denies travel to an Ebola-affected area in the 21 days before illness onset. No symptoms or risks identified at this time. Initial Sepsis Screen: Does the patient meet any 2 criteria? No. Patient's initial sepsis screen is negative. Does the patient have a suspected source of infection? No. Patient's initial sepsis screen is negative. Risk Assessment: Do you want to hurt yourself or someone else? Other: was upset with mom at the time. pt states that he has a place to stay. 21:32 Method Of Arrival: Ambulatory dm5 21:32 Acuity: PAULINE 2 bb 08/15 00:11 Onset of symptoms is unknown. rv Historical: - Allergies: 08/14 22:30 No Known Allergies; rv - PMHx: 22:30 Anxiety; BRAIN DISORDER, ONE SIDE MORE DEVELOPED THAN THE OTHER; CVA (1993); rv Depression; mental retardation; Seizures; WHEELCHAIR BOUND, CAN AMBULATE WITH ASSITANCE. WEAKNESS; (no longer current. Pt ambulatory and able to perform ADL's); - PSHx: 22:30 Unable to obtain; rv - Immunization history:: Adult Immunizations up to date. - Social history:: Smoking status: unknown. Screenin:30 Abuse screen: Denies threats or abuse. Denies injuries from another. rv 22:30 Nutritional screening: No deficits noted. Tuberculosis screening: No symptoms or risk rv factors identified. Fall Risk None identified. Assessment: 22:30 General: Appears comfortable, Behavior is calm, cooperative. rv 22:30 Pain: Complains of pain in left hand. Neuro: Level of Consciousness is awake, alert, rv obeys commands, Oriented to person, place, time. Cardiovascular: Patient's skin is warm and dry. Respiratory: Airway is patent Respiratory effort is even, unlabored, Breath sounds are clear bilaterally. Musculoskeletal: Circulation, motion, and sensation intact. Swelling present in left hand. 08/15 01:05 Reassessment: report given to nurse in [facility]. rv 01:50 Reassessment: report given to Dipti at [facility]. bb 02:39 Reassessment: pt is A\T\O x 3, resp unlabored, given snack with juice, parent at bedside, bb awaiting transfer to psychiatric facility for further evaluation and treatment. 04:23 Reassessment: Pt appears to be resting quietly, resp unlabored. bb 06:41 Reassessment: Pt is A\T\O x 3, resp unlabored, awaiting arrival of EMS for transport bb of pt to [facility] psychiatric facility for further evaluation and treatment. 06:52 Reassessment: EMS at bedside for transfer of pt to [facility]. bb Vital Signs: 08/14 21:32 BP 141 / 105; Pulse 74; Resp 18; Temp 97.9; Pulse Ox 97% on R/A; Weight 105.69 kg; dm5 Height 5 ft. 5 in. (165.10 cm); Pain 10/13; 08/15 02:43 BP 136 / 89 LA Supine (auto/reg); Pulse 67 LA; Resp 16; Temp 97.9(O); Pulse Ox 96% on jb5 R/A; 06:42 BP 131 / 88 LA Supine; Pulse 67; Resp 16; Temp 98.1(O); Pulse Ox 95% on R/A; jb5 08/14 21:32 Body Mass Index 38.77 (105.69 kg, 165.10 cm) dm5 ED Course: 08/14 21:12 Patient arrived in ED. cl3 21:38 Triage completed. dm5 21:39 Britt [facility]roc[facility]C [facility] kb 21:39 Jose Eduardo Momin MD is Attending Physician. kb 22:05 Hand Left 3 View XRAY In Process Unspecified. EDMS 22:14 Marlo Alaniz, PILLO is Primary Nurse. rv 23:00 Inserted saline lock: 20 gauge in right antecubital area, using aseptic technique. rv Blood collected. 23:00 No provider procedures requiring assistance completed. Initial lab(s) drawn, by tn, rv sent to lab. 08/15 00:02 [facility] contacted for evaluation. mt 00:12 Patient has correct armband on for positive identification. Placed in gown. Bed in low rv position. Call light in reach. 00:12 Splint/sling/ice applied as appropriate. rv 00:24 [facility], Thao Bermeo, at bedside for evaluation. mt 00:45 chart faxed to [facility], [facility], [facility], [facility], [facility], [facility], [facility], [facility], and [facility]ilities. 01:01 Micheal giving nurse to nurse report to [facility]. nc 01:14 Nurse with [facility] gave number for Dr rebecca Natarajan report: nc Dr Bejarano. 01:26 Dr rebecca Natarajan report given. nc 01:31 Dr Bejarano with [facility] declined acceptance, states patient mt does not need inpatient. 01:40 Kate giving nurse to nurse report to [facility], nurse states they currently mt have no beds but will have discharges in the morning. 01:59 Physician with [facility] called for Dr rebecca Ash nc 02:09 Admin Approval given by Dai Renteria at [facility], Dr Rob Gannon is the mt accepting provider. Notified to not send the patient until 0600. 05:32 [facility] called for transport. mt 06:43 IV discontinued, intact, bleeding controlled, No redness/swelling at site. Pressure bb dressing applied. 06:45 [facility] arrived for transport. mt Administered Medications: 00:08 Drug: Potassium Chloride 40 mEq Route: PO; rv 01:00 Follow up: Response: No adverse reaction bb Outcome: 02:04 ER care complete, transfer ordered by . rn 06:43 Condition: stable bb 06:43 Instructed on the need for transfer. 06:52 Transferred by ground EMS Transfer form completed. bb 06:53 Patient left the ED. bb Signatures: Dispatcher [employer] EDBritt Ireland, ESTEPHANIA CUSTOM MILLER-Aurora Tavarez, RN RN Kate Wahl, RN RN Jose Eduardo Patton MD MD rn Broussard, Jennifer jb5 Thompson, Moriah nc Marlo Alaniz RN RN rv Lewis, Charde cl3 Corrections: (The following items were deleted from the chart) 00:12 08/14 21:32 Risk Assessment: Do you want to hurt yourself or someone else? Other: was rv upset with mom at the time. pt states that he has a place to stay dm5 08/15 00:20 08/14 21:32 Acuity: PAULINE 4 5 08/15 02:14 02:09 Admin Approval given by Dai Renteria, Dr Rob Gannon is the accepting provider. nc Notified to not send the patient until 0600 nc 02:30 02:29 Kate giving nurse to nurse report to [facility]
[2020-08-15 07:03] VITALS: BP 131/88; TEMP 98.1; O2SAT 95
--- NOTE | 2020-08-15 08:27 | RAD REPORT ---
EXAM DESCRIPTION: RAD - Hand Left 3 View - 08/14/2020 10:04 pm CLINICAL HISTORY: PAIN COMPARISON: No comparisons FINDINGS: Moderate soft tissue swelling is seen at the level of the metacarpal heads. No acute fract ure or dislocation is seen.
== END 2020-08-15 06:53 ==
LOC: ER 21:12
DX: R45.850 Homicidal ideations (principal); S60.222A Contusion of left hand, initial encounter; F41.8 Other specified anxiety disorders; W22.8XXA Striking against or struck by other objects, initial encounter; Y93.89 Activity, other specified; Y92.9 Unspecified place or not applicable
CPT/HCPCS: 36415; 80048; 80076; 80307; 80320; 80329; 85025; 85610; 85730; 99285

== ENCOUNTER 2020-08-30 15:45 | Emergency (ER) | payer OTHER ==
[2020-08-30] MEDS ORDERED: SMZ./TMP. 800/160 MG TABLET ONE (17:03)
[2020-08-30] MEDS ORDERED: IBUPROFEN 400 MG TAB ONE (17:03)
--- NOTE | 2020-08-30 17:16 | ER ---
Nurse's Notes [facility] Name: Shan Faye Age: 35 yrs Sex: Male : 1985 Arrival Date: 08/30/2020 Time: 15:48 Bed 17 Private MD: Jethro Allen Diagnosis: Cellulitis of buttock-left Presentation: 08/30 16:12 Chief complaint: Parent and/or Guardian states: pt has sore between his 3rd and 4th toe iw on right foot for a few days and he also has sore on his bottom that she isn't sure if it's a bed sore or abscess , was in a mental hospital this month and came home with these sores. Coronavirus screen: At this time, the client does not indicate any symptoms associated with coronavirus-19. Ebola Screen: Patient negative for fever greater than or equal to 101.5 degrees Fahrenheit, and additional compatible Ebola Virus Disease symptoms Patient denies exposure to infectious person. Patient denies travel to an Ebola-affected area in the 21 days before illness onset. No symptoms or risks identified at this time. Initial Sepsis Screen: Does the patient meet any 2 criteria? No. Patient's initial sepsis screen is negative. Does the patient have a suspected source of infection? No. Patient's initial sepsis screen is negative. Risk Assessment: Do you want to hurt yourself or someone else? Patient reports no desire to harm self or others. Onset of symptoms was August 26, 2020. 16:12 Method Of Arrival: Ambulatory iw 16:12 Acuity: PAULINE 3 iw Historical: - Allergies: 16:15 No Known Allergies; iw - Home Meds: 16:15 buspirone 7.5 mg Oral tab three times a day [Active]; citalopram 20 mg tab 1 tab once iw daily [Active]; Fycompa 8 mg Oral tab 1 tab once daily [Active]; Latuda 40 mg Oral tab 1 tab once daily [Active]; levetiracetam 750 mg Oral Tb24 2 tabs twice a day [Active]; - PMHx: 16:15 Anxiety; BRAIN DISORDER, ONE SIDE MORE DEVELOPED THAN THE OTHER; CVA (1993); iw Depression; Seizures; - PSHx: 16:15 Cholecystectomy; bone biopsy on leg; iw - Immunization history:: Adult Immunizations up to date. - Social history:: Patient/guardian denies using alcohol, street drugs, The patient lives with family, Smoking status: Patient denies any tobacco usage or history of. - Family history:: not pertinent. Screenin:33 Abuse screen: Denies threats or abuse. Denies injuries from another. Nutritional ca1 screening: No deficits noted. Tuberculosis screening: No symptoms or risk factors identified. Fall Risk Mental Status- Overestimates/Forgets Limitations (15 pts.). Assessment: 16:33 General: Appears in no apparent distress. comfortable, Behavior is calm, cooperative, ca1 appropriate for age. Pain: Complains of pain in gluteal cleft. Neuro: Level of Consciousness is awake, alert, obeys commands, Oriented to person. Derm: Skin is intact, is healthy with good turgor, Skin is pink, warm \T\ dry. Abscess located on left gluteus caron is nickel sized, is hot to touch, is red, is raised. Derm: Wound noted bewtween right fourth toe and right fifth toe. Musculoskeletal: Circulation, motion, and sensation intact. Capillary refill < 3 seconds. 17:24 Reassessment: Patient appears in no apparent distress at this time. Patient and/or ca1 family updated on plan of care and expected duration. Pain level reassessed. Patient is alert, oriented x 3, equal unlabored respirations, skin warm/dry/pink. Vital Signs: 16:12 BP 134 / 88; Pulse 84; Resp 16; Temp 97.7; Pulse Ox 100% on R/A; iw 17:24 BP 128 / 81; Pulse 83; Resp 16 S; Pulse Ox 100% on R/A; ca1 ED Course: 15:48 Patient arrived in ED. mr 15:48 Jethro Allen DO is Private Physician. mr 16:14 Triage completed. iw 16:24 Rosalie Reyes MD is Attending Physician. ma2 16:33 Caty Sandoval RN is Primary Nurse. ca1 16:33 Arm band placed on right wrist. ca1 16:33 Patient has correct armband on for positive identification. Placed in gown. Bed in low ca1 position. Call light in reach. Side rails up X2. Adult w/ patient. Pulse ox on. NIBP on. Warm blanket given. 17:25 No provider procedures requiring assistance completed. Patient did not have IV access ca1 during this emergency room visit. Administered Medications: 16:47 Drug: Motrin 200 mg Route: PO; ca1 17:24 Follow up: Response: No adverse reaction; Pain is decreased ca1 16:47 Drug: Bactrim 160 mg-800 mg (DS) 160 mg Route: PO; ca1 17:24 Follow up: Response: No adverse reaction ca1 Outcome: 17:15 Discharge ordered by . daniel 17:25 Discharged to home ambulatory, with family. ca1 17:25 Condition: stable 17:25 Discharge instructions given to patient, family, mother Instructed on discharge instructions, follow up and referral plans. medication usage, wound care, Demonstrated understanding of instructions, follow-up care, medications, wound care, Prescriptions given X 3. 17:26 Patient left the ED. ca1 Signatures: Corinna Charlton Irene, RN PILLO iw Rosalie Reyes MD MD ma2 Acob, Cheryl, RN RN ca1
--- NOTE | 2020-08-30 17:16 | EDPHYS ---
Physician Documentation [facility] Name: Shan Faye Age: 35 yrs Sex: Male : 1985 Arrival Date: 08/30/2020 Time: 15:48 Bed 17 Private MD: Alejandro [facility] ED Physician Rosalie Reyes HPI: 08/30 17:10 This 35 yrs old Male presents to ER via Ambulatory with complaints of Abscess, ma2 Feet Problem. 17:10 The patient presents with cellulitis of the buttocks. Onset: The symptoms/episode ma2 began/occurred gradually, 2 day(s) ago. Associated signs and symptoms: Pertinent positives: Pertinent negatives: erythema, foreign body sensation, headache. Severity of symptoms: At their worst the symptoms were mild, in the emergency department the symptoms are unchanged. The patient has not experienced similar symptoms in the past. has buttock redness, that drained yesterday . Historical: - Allergies: 16:15 No Known Allergies; iw - Home Meds: 16:15 buspirone 7.5 mg Oral tab three times a day [Active]; citalopram 20 mg tab 1 tab once iw daily [Active]; Fycompa 8 mg Oral tab 1 tab once daily [Active]; Latuda 40 mg Oral tab 1 tab once daily [Active]; levetiracetam 750 mg Oral Tb24 2 tabs twice a day [Active]; - PMHx: 16:15 Anxiety; BRAIN DISORDER, ONE SIDE MORE DEVELOPED THAN THE OTHER; CVA (1993); iw Depression; Seizures; - PSHx: 16:15 Cholecystectomy; bone biopsy on leg; iw - Immunization history:: Adult Immunizations up to date. - Social history:: Patient/guardian denies using alcohol, street drugs, The patient lives with family, Smoking status: Patient denies any tobacco usage or history of. - Family history:: not pertinent. ROS: 17:10 Constitutional: Negative for fever, chills, and weight loss. ma2 17:10 All other systems are negative. Exam: 17:10 Constitutional: This is a well developed, well nourished patient who is awake, alert, ma2 and in no acute distress. Head/Face: Normocephalic, atraumatic. Eyes: Pupils equal round and reactive to light, extra-ocular motions intact. Lids and lashes normal. Conjunctiva and sclera are non-icteric and not injected. Cornea within normal limits. Periorbital areas with no swelling, redness, or edema. ENT: Nares patent. No nasal discharge, no septal abnormalities noted. Tympanic membranes are normal and external auditory canals are clear. Oropharynx with no redness, swelling, or masses, exudates, or evidence of obstruction, uvula midline. Mucous membranes moist. Neck: Trachea midline, no thyromegaly or masses palpated, and no cervical lymphadenopathy. Supple, full range of motion without nuchal rigidity, or vertebral point tenderness. No Meningismus. Chest/axilla: Normal chest wall appearance and motion. Nontender with no deformity. No lesions are appreciated. Cardiovascular: Regular rate and rhythm with a normal S1 and S2. No gallops, murmurs, or rubs. Normal PMI, no JVD. No pulse deficits. Respiratory: Lungs have equal breath sounds bilaterally, clear to auscultation and percussion. No rales, rhonchi or wheezes noted. No increased work of breathing, no retractions or nasal flaring. Abdomen/GI: Soft, non-tender, with normal bowel sounds. No distension or tympany. No guarding or rebound. No evidence of tenderness throughout. Back: No spinal tenderness. No costovertebral tenderness. Full range of motion. Male : has buttock redness 2x2 cm, no swelling, mildly tender, has no fluctuence, dry.. Normal genitalia with no discharge or lesions. MS/ Extremity: Pulses equal, no cyanosis. Neurovascular intact. Full, normal range of motion. Neuro: Awake and alert, GCS 15, oriented to person, place, time, and situation. Cranial nerves II-XII grossly intact. Motor strength 5/5 in all extremities. Sensory grossly intact. Cerebellar exam normal. Normal gait. Vital Signs: 16:12 BP 134 / 88; Pulse 84; Resp 16; Temp 97.7; Pulse Ox 100% on R/A; iw 17:24 BP 128 / 81; Pulse 83; Resp 16 S; Pulse Ox 100% on R/A; ca1 MDM: 16:24 Patient medically screened. ma2 17:10 Differential diagnosis: abscess, cellulitis, insect bite, also has athletic foot, ma2 bilateral feet fungal infection not including nails . Data reviewed: vital signs, nurses notes. Counseling: I had a detailed discussion with the patient and/or guardian regarding: the historical points, exam findings, and any diagnostic results supporting the discharge/admit diagnosis, the presence of at least one elevated blood pressure reading (>120/80) during this emergency department visit, the need for outpatient follow up. Response to treatment: the patient's symptoms have markedly improved after treatment. Administered Medications: 16:47 Drug: Motrin 200 mg Route: PO; ca1 17:24 Follow up: Response: No adverse reaction; Pain is decreased ca1 16:47 Drug: Bactrim 160 mg-800 mg (DS) 160 mg Route: PO; ca1 17:24 Follow up: Response: No adverse reaction ca1 Disposition: 08/30/20 17:15 Discharged to Home. Impression: Cellulitis of buttock - left. - Condition is Stable. - Discharge Instructions: Cellulitis, Adult, Athlete's Foot, [id number]. - Prescriptions for Diclofenac Sodium 75 mg Oral Tablet Sustained Release - take 1 tablet by ORAL route 2 times per day; 30 tablet. Nystatin- Triamcinolone 100,000-0.1 unit/g-% Topical Cream - apply 1 application by TOPICAL route 2 times per day; 1 tube. Bactrim DS 800- 160 mg Oral Tablet - take 1 tablet by ORAL route every 12 hours for 10 days; 20 tablet. - Medication Reconciliation Form, Thank You Letter, Antibiotic Education, Prescription Opioid Use form. - Follow up: Private Physician; When: Tomorrow; Reason: Continuance of care. Signatures: Faye Bazan RN RN Rosalie Reyes MD MD ma2 Caty Sandoval RN RN ca1 Corrections: (The following items were deleted from the chart) 17:26 17:15 08/30/2020 17:15 Discharged to Home. Impression: Cellulitis of buttock - left. ca1 Condition is Stable. Prescriptions for Diclofenac Sodium 75 mg Oral Tablet Sustained Release - take 1 tablet by ORAL route 2 times per day; 30 tablet, Nystatin-Triamcinolone 100,000-0.1 unit/g-% Topical Cream - apply 1 application by TOPICAL route 2 times per day; 1 tube, Bactrim DS 800-160 mg Oral Tablet - take 1 tablet by ORAL route every 12 hours for 10 days; 20 tablet. and Forms are Medication Reconciliation Form, Thank You Letter, Antibiotic Education, Prescription Opioid Use. Follow up: Private Physician; When: Tomorrow; Reason: Continuance of care. ma2
[2020-08-30 18:29] VITALS: TEMP 97.7; O2SAT 100
[2020-08-30 18:31] VITALS: BP 128/81
== END 2020-08-30 17:26 | disposition home or self-care (01) ==
LOC: ER 15:45
DX: L03.317 Cellulitis of buttock (principal); F41.8 Other specified anxiety disorders; Z86.73 Personal history of transient ischemic attack (TIA), and cerebral infarction without residual deficits
CPT/HCPCS: 99283

== ENCOUNTER 2020-09-03 12:58 | Emergency (ER) | payer OTHER ==
[2020-09-03] MEDS ORDERED: ACETAMINOPHEN 500 MG TAB ONE (14:32)
[2020-09-03] MEDS ORDERED: FAMOTIDINE 20 MG/2 ML VIAL IV ONE (14:32)
[2020-09-03] MEDS ORDERED: CEFTRIAXONE/SWI 1gm 1 GM/10 ML SYR ONE (14:32)
[2020-09-03] MEDS ORDERED: ALBUTEROL INHALER 60 PUFF/8 GM IH ONE (14:33)
[2020-09-03] MEDS ORDERED: NA CHLORIDE 0.9% 1,000 ML ONE ×2 (14:33→15:52)
[2020-09-03 14:51] LABS: Absolute Lymphocytes (CBC) 0.7 K/uL (0.7-4.9); Basophils % 0.5 % (0-1.3); Hematocrit 42.4 % (39.6-49.0); Lymphocytes % 11.2 % (15.3-44.8); RBC Red Blood Cell Count 4.92 M/uL (4.33-5.43)
[2020-09-03 14:52] LABS: Albumin 4.2 g/dL (3.4-5.0); Bilirubin Total 0.5 mg/dL (0.2-1.0); Potassium 3.9 mmol/L (3.5-5.1); Protein, Total 8.7 g/dL (6.4-8.2)
[2020-09-03] MEDS ORDERED: AZITHROMYCIN IV 500 MG in NA CHLORIDE 0.9% 250 ML IVPB ONE (15:00)
--- NOTE | 2020-09-03 15:02 | RAD REPORT ---
EXAM DESCRIPTION: RAD - Chest Single View - 09/03/2020 2:26 pm CLINICAL HISTORY: COUGH, vomiting, dizziness COMPARISON: Two chest June 2019 TECHNIQUE: AP portable chest image was obtained 09/03/2020 2:26 pm . FINDINGS: Lung volumes are very low creating lung base atelectasis. This could potentially mask infe ctious or aspiration left base infiltrate. Heart and vasculature are normal. No measurable pleural ef fusion and no pneumothorax. No acute bony abnormality seen. No acute aortic findings suspected. IMPRESSION: No acute cardiopulmonary process. Bilateral lung base atelectasis, worse on the left, could potentially mask a minimal infectious or as piration infiltrate.
[2020-09-03] MEDS ORDERED: IBUPROFEN 400 MG TAB ONE (15:52)
[2020-09-03] MEDS ORDERED: dexAMETHasone 4 MG/ML VIAL ONE (16:03)
[2020-09-03] MEDS ORDERED: ASPIRIN 81 MG CHEWABLE TABLET ONE (16:10)
--- NOTE | 2020-09-03 16:27 | RAD REPORT ---
EXAM DESCRIPTION: CT - Chest For Pe Angio - 09/03/2020 4:09 pm CLINICAL HISTORY: Chest pain;Dyspnea COMPARISON: Chest Single View dated 09/03/2020 TECHNIQUE: Dynamically enhanced 3 mm thick images of the chest were obtained during administration o f approximately 150mL Isovue 370 IV contrast. Coronal and oblique MIP reconstruction images were gene rated and reviewed. Exam utilizes a protocol to evaluate the pulmonary arterial tree. All CT scans are performed using dose optimization technique as appropriate and may include automated exposure control or mA/KV adjustment according to patient size. FINDINGS: No pulmonary emboli are identified. The aorta as imaged shows no acute or suspicious finding. No pericardial thickening or effusion. No dense consolidation or mass of the lung parenchyma. Respiratory motion accentuates the interstitia l pattern. Patient has a few scattered ground-glass opacities in lung morales. This is a minimal findi ng and could be atelectasis, minimal edema or infiltrate. Pattern does not have an elevated concern f or COVID-19 pneumonia. No mediastinal or hilar suspicious masses. No chest wall masses or abnormal axillary lymphadenopathy. Limited imaging of the upper abdomen shows fatty infiltration of the liver. IMPRESSION: No pulmonary emboli identified. Minimal alveolar opacities are scattered in the lung morales probably atelectasis. Minimal edema or in filtrate possible if there are supporting clinical findings. Pattern does not have an elevated concer n for COVID-19 pneumonia.
--- NOTE | 2020-09-04 04:11 | EDPHYS ---
Physician Documentation [facility] Name: Shan Faye Age: 35 yrs Sex: Male : 1985 Arrival Date: 09/03/2020 Time: 13:01 Bed 2 Private MD: CLAUDE Physician Isaiah Fererr HPI: 09/03 14:06 This 35 yrs old Male presents to ER via Ambulatory with complaints of annie Vomiting, Dizziness. 14:06 The patient presents to the emergency department with nausea, vomiting, that is annie intermittent. Onset: The symptoms/episode began/occurred 2 day(s) ago. Possible causes: unknown. The symptoms are aggravated by nothing. The symptoms are alleviated by nothing. Associated signs and symptoms: Pertinent positives: nausea, vomiting. Severity of symptoms: At their worst the symptoms were mild in the emergency department the symptoms are unchanged. The patient has not experienced similar symptoms in the past. Historical: - Allergies: 13:06 No Known Drug Allergies; sv - PMHx: 13:06 Anxiety; BRAIN DISORDER, ONE SIDE MORE DEVELOPED THAN THE OTHER; CVA (1993); sv Depression; mental retardation; Seizures; WHEELCHAIR BOUND, CAN AMBULATE WITH ASSITANCE. WEAKNESS; (no longer current. Pt ambulatory and able to perform ADL's); - PSHx: 13:06 Cholecystectomy; bone biopsy on leg; sv - Immunization history:: Adult Immunizations up to date. - Social history:: Smoking status: . ROS: 14:11 Constitutional: Negative for fever, chills, and weight loss, Eyes: Negative for injury, annie pain, redness, and discharge, ENT: Negative for injury, pain, and discharge, Neck: Negative for injury, pain, and swelling, Cardiovascular: Negative for chest pain, palpitations, and edema, Abdomen/GI: Negative for abdominal pain, nausea, vomiting, diarrhea, and constipation, Back: Negative for injury and pain, : Negative for injury, bleeding, discharge, and swelling, MS/Extremity: Negative for injury and deformity, Skin: Negative for injury, rash, and discoloration, Neuro: Negative for headache, weakness, numbness, tingling, and seizure, Psych: Negative for depression, anxiety, suicide ideation, homicidal ideation, and hallucinations, Allergy/Immunology: Negative for hives, rash, and allergies, Endocrine: Negative for neck swelling, polydipsia, polyuria, polyphagia, and marked weight changes, Hematologic/Lymphatic: Negative for swollen nodes, abnormal bleeding, and unusual bruising. 14:11 Respiratory: Positive for cough, shortness of breath, at rest. Exam: 14:11 Head/Face: Normocephalic, atraumatic. Eyes: Pupils equal round and reactive to light, annie extra-ocular motions intact. Lids and lashes normal. Conjunctiva and sclera are non-icteric and not injected. Cornea within normal limits. Periorbital areas with no swelling, redness, or edema. ENT: Nares patent. No nasal discharge, no septal abnormalities noted. Tympanic membranes are normal and external auditory canals are clear. Oropharynx with no redness, swelling, or masses, exudates, or evidence of obstruction, uvula midline. Mucous membranes moist. Neck: Trachea midline, no thyromegaly or masses palpated, and no cervical lymphadenopathy. Supple, full range of motion without nuchal rigidity, or vertebral point tenderness. No Meningismus. Chest/axilla: Normal chest wall appearance and motion. Nontender with no deformity. No lesions are appreciated. Cardiovascular: Regular rate and rhythm with a normal S1 and S2. No gallops, murmurs, or rubs. Normal PMI, no JVD. No pulse deficits. Abdomen/GI: Soft, non-tender, with normal bowel sounds. No distension or tympany. No guarding or rebound. No evidence of tenderness throughout. Back: No spinal tenderness. No costovertebral tenderness. Full range of motion. Male : Normal genitalia with no discharge or lesions. Skin: Warm, dry with normal turgor. Normal color with no rashes, no lesions, and no evidence of cellulitis. MS/ Extremity: Pulses equal, no cyanosis. Neurovascular intact. Full, normal range of motion. Neuro: Awake and alert, GCS 15, oriented to person, place, time, and situation. Cranial nerves II-XII grossly intact. Motor strength 5/5 in all extremities. Sensory grossly intact. Cerebellar exam normal. Normal gait. Psych: Awake, alert, with orientation to person, place and time. Behavior, mood, and affect are within normal limits. 14:11 Respiratory: mild respiratory distress is noted, Respirations: normal, no acute changes, Breath sounds: bronchial sounds, rhonchi, that are mild, Respiratory rate: 95% Vital Signs: 13:07 BP 135 / 88; Pulse 123; Resp 16; Temp 100.1; Pulse Ox 97% ; Weight 102.51 kg; Height 5 sv ft. 5 in. (165.10 cm); 13:43 BP 143 / 89; Pulse 117; Resp 18; Pulse Ox 95% on R/A; tw2 14:46 BP 142 / 89; Pulse 121; Resp 18; Pulse Ox 92% on R/A; tw2 15:35 BP 125 / 79; Pulse 124; Resp 19; Temp 100.5(O); Pulse Ox 92% on R/A; tw2 15:53 Pulse 119; Resp 19; Pulse Ox 94% on R/A; tw2 16:35 BP 120 / 69; Pulse 110; Resp 18; Pulse Ox 92% on R/A; tw2 17:16 BP 121 / 91; Pulse 111; Resp 19; Temp 99.3(O); Pulse Ox 93% on R/A; tw2 13:07 Body Mass Index 37.61 (102.51 kg, 165.10 cm) sv MDM: 13:20 Patient medically screened. [facility] 14:13 Differential diagnosis: Nonspecific abd pain, viral gastroenteritis, viral Infection, annie bacterial infection, URI, bronchitis, pneumonia gastroenteritis. Differential Diagnosis flu, Bronchitis Influenza Upper Respiratory Infection Viral Syndrome Pneumonia. Data reviewed: vital signs, nurses notes, lab test result(s), radiologic studies, plain films. Data interpreted: desk monitor: rate is 117 beats/min, rhythm is regular, Pulse oximetry: on room air is 97 %. Test interpretation: by ED physician or midlevel provider: plain radiologic studies. Counseling: I had a detailed discussion with the patient and/or guardian regarding: the historical points, exam findings, and any diagnostic results supporting the discharge/admit diagnosis, lab results, radiology results, the need for outpatient follow up, for definitive care, a family practitioner, a neurologist, a hobbies and crafts sales representative. 17:11 ED course: improved, wiil cover with abx, close follow up , covid test pending. [facility] 09/03 14:06 Order name: CBC with Diff; Complete Time: 15:43 [facility] 09/03 14:06 Order name: Comprehensive Metabolic Panel; Complete Time: 14:56 [facility] 09/03 14:06 Order name: Blood Culture Adult (2) [facility] 09/03 14:06 Order name: Influenza Screen (a \T\ B); Complete Time: 15:43 [facility] 09/03 14:06 Order name: COVID-19 [facility] 09/03 14:56 Order name: BNP; Complete Time: 16:59 [facility] 09/03 14:06 Order name: Chest Single View XRAY; Complete Time: 15:43 [facility] 09/03 15:48 Order name: CT Chest For PE Angio [facility] 09/03 17:05 Order name: INCENTIVE SPIROMETRY [facility] 09/03 17:19 Order name: Misc. Order: have patient take his usual daily meds, mom has; Complete [facility] Time: 17:26 Administered Medications: 14:30 Drug: NS 0.9% 1000 ml Route: IV; Rate: 1 bolus; Site: right antecubital; tw2 15:35 Follow up: Response: No adverse reaction; IV Status: Completed infusion; IV Intake: tw2 1000ml 14:32 Drug: Tylenol 1000 mg Route: PO; tw2 15:34 Follow up: Response: No adverse reaction; Temperature is unchanged; Temperature is tw2 unchanged, provider notified 14:34 Drug: Pepcid 20 mg Route: IVP; Site: right antecubital; tw2 15:35 Follow up: Response: No adverse reaction tw2 14:34 Drug: Albuterol HFA Inhaler 4 puffs Route: Inhalation; tw2 14:38 Drug: Rocephin - (cefTRIAXone) 1 grams {Note: IVP available only.} Route: IVPB; Infused tw2 Over: 5 mins; Site: right antecubital; 14:43 Follow up: Response: No adverse reaction; IV Status: Completed infusion; IV Intake: [id number] 14:50 Drug: Zithromax 500 mg Route: IVPB; Infused Over: 1 hrs; Site: right antecubital; tw2 15:55 Follow up: Response: No adverse reaction; IV Status: Completed infusion; IV Intake: tw2 250ml 15:42 Drug: NS 0.9% 1000 ml Route: IV; Rate: 1 bolus; Site: right antecubital; tw2 17:17 Follow up: Response: No adverse reaction; IV Status: Completed infusion; IV Intake: tw2 1000ml 15:42 Drug: Motrin 800 mg Route: PO; tw2 17:19 Follow up: Response: No adverse reaction; Temperature is decreased tw2 15:58 Drug: Decadron - Dexamethasone 6 mg Route: IVP; Site: right antecubital; tw2 17:17 Follow up: Response: No adverse reaction tw2 15:58 Drug: Aspirin 162 mg Route: PO; tw2 17:17 Follow up: Response: No adverse reaction tw2 Disposition: 09/03/20 17:07 Discharged to Home. Impression: Acute upper respiratory infection, unspecified, Fever, unspecified, Vomiting, Atelectasis. - Condition is Stable. - Discharge Instructions: Atelectasis, Adult, Fever, Adult, Nausea and Vomiting, Adult, Upper Respiratory Infection, Adult, Incentive Spirometer, Aspirin and Your Heart. - Prescriptions for dexamethasone 2 mg Oral tablet - take 1 tablet by ORAL route 3 times per day; 15 tablet. Pepcid 20 mg Oral Tablet - take 1 tablet by ORAL route every 12 hours for 10 days; 20 tablet. Albuterol Sulfate 90 mcg/actuation - inhale 1-2 puff by INHALATION route every 4-6 hours; 1 Inhaler. Zithromax 500 mg Oral Tablet - take 1 tablet by ORAL route once daily for 5 days; 5 tablet. - Medication Reconciliation Form, Thank You Letter, Antibiotic Education, Prescription Opioid Use form. - Follow up: Private Physician; When: 2 - 3 days; Reason: Recheck today's complaints, Continuance of care, Re-evaluation by your physician. Follow up: Deric Thomas MD; When: 2 - 3 days; Reason: Recheck today's complaints, Re-evaluation by your physician. - Problem is new. - Symptoms have improved. Signatures: Dispatcher [employer] Dai Sebastian, RN RN Isaiah Holder MD MD cha Wise, Tara RN RN tw2 Corrections: (The following items were deleted from the chart) 17:08 17:07 09/03/2020 17:07 Discharged to Home. Impression: Acute upper respiratory annie infection, unspecified; Fever, unspecified; Vomiting. Condition is Stable. Forms are Medication Reconciliation Form, Thank You Letter, Antibiotic Education, Prescription Opioid Use. Follow up: Private Physician; When: 2 - 3 days; Reason: Recheck today's complaints, Continuance of care, Re-evaluation by your physician. Follow up: Deric Thomas; When: 2 - 3 days; Reason: Recheck today's complaints, Re-evaluation by your physician. Problem is new. Symptoms have improved. [facility] 17:26 17:08 09/03/2020 17:07 Discharged to Home. Impression: Acute upper respiratory tw2 infection, unspecified; Fever, unspecified; Vomiting; Atelectasis. Condition is Stable. Forms are Medication Reconciliation Form, Thank You Letter, Antibiotic Education, Prescription Opioid Use. Follow up: Private Physician; When: 2 - 3 days; Reason: Recheck today's complaints, Continuance of care, Re-evaluation by your physician. Follow up: Deric Thomas; When: 2 - 3 days; Reason: Recheck today's complaints, Re-evaluation by your physician. Problem is new. Symptoms have improved. annie
--- NOTE | 2020-09-04 04:11 | ER ---
Nurse's Notes [facility] Name: Shan Faye Age: 35 yrs Sex: Male : 1985 Arrival Date: 09/03/2020 Time: 13:01 Bed 2 Private MD: Diagnosis: Acute upper respiratory infection, unspecified;Fever, unspecified;Vomiting;Atelectasis Presentation: 09/03 13:05 Chief complaint: Parent and/or Guardian states: vomiting, dizziness started yesterday. sv Reports that he just had a seizure today but hasn't taken his seizure medication. Coronavirus screen: Client denies travel out of the [place] in the last 14 days. Client presents with at least one sign or symptom that may indicate coronavirus-19. Standard/surgical mask placed on the client. Provider contacted for isolation considerations. Reports being exposed to a COVID+ recently. Ebola Screen: No symptoms or risks identified at this time. Risk Assessment: Do you want to hurt yourself or someone else? Patient reports no desire to harm self or others. Onset of symptoms was September 02, 2020. 13:05 Method Of Arrival: Ambulatory sv 13:05 Acuity: PAULINE 2 sv 13:07 Initial Sepsis Screen: Does the patient meet any 2 criteria? HR > 90 bpm. No. Patient's sv initial sepsis screen is negative. Does the patient have a suspected source of infection? No. Patient's initial sepsis screen is negative. Historical: - Allergies: 13:06 No Known Drug Allergies; sv - PMHx: 13:06 Anxiety; BRAIN DISORDER, ONE SIDE MORE DEVELOPED THAN THE OTHER; CVA (1993); sv Depression; mental retardation; Seizures; WHEELCHAIR BOUND, CAN AMBULATE WITH ASSITANCE. WEAKNESS; (no longer current. Pt ambulatory and able to perform ADL's); - PSHx: 13:06 Cholecystectomy; bone biopsy on leg; sv - Immunization history:: Adult Immunizations up to date. - Social history:: Smoking status: . Screenin:15 Abuse screen: Denies threats or abuse. Nutritional screening: No deficits noted. em Tuberculosis screening: No symptoms or risk factors identified. Fall Risk None identified. Assessment: 13:42 General: Appears in no apparent distress. Behavior is cooperative, appropriate for age. tw2 Pain: Denies pain. Neuro: Reports dizziness. Neuro: Level of Consciousness is awake, alert, obeys commands, Oriented to person, place. Cardiovascular: Heart tones S1 S2 Patient's skin is warm and dry. Respiratory: Airway is patent Respiratory effort is even, unlabored, Respiratory pattern is regular, symmetrical, Breath sounds are clear bilaterally. GI: Abdomen is round non-distended, obese, Bowel sounds present X 4 quads. Reports nausea, vomiting. : No signs and/or symptoms were reported regarding the genitourinary system. EENT: No signs and/or symptoms were reported regarding the EENT system. Derm: No signs and/or symptoms reported regarding the dermatologic system. Musculoskeletal: Range of motion: intact in all extremities. 14:47 Reassessment: Patient appears in no apparent distress at this time. No changes from tw2 previously documented assessment. Patient and/or family updated on plan of care and expected duration. Pain level reassessed. 15:35 Reassessment: Patient appears in no apparent distress at this time. No changes from tw2 previously documented assessment. Patient and/or family updated on plan of care and expected duration. Pain level reassessed. 16:35 Reassessment: Patient appears in no apparent distress at this time. No changes from tw2 previously documented assessment. Patient and/or family updated on plan of care and expected duration. Pain level reassessed. 17:16 Reassessment: Patient appears in no apparent distress at this time. No changes from tw2 previously documented assessment. Patient and/or family updated on plan of care and expected duration. Pain level reassessed. 17:21 Reassessment: provider at bedside with results at this time. tw2 17:25 Reassessment: Patient appears in no apparent distress at this time. No changes from tw2 previously documented assessment. Patient and/or family updated on plan of care and expected duration. Pain level reassessed. Vital Signs: 13:07 BP 135 / 88; Pulse 123; Resp 16; Temp 100.1; Pulse Ox 97% ; Weight 102.51 kg; Height 5 sv ft. 5 in. (165.10 cm); 13:43 BP 143 / 89; Pulse 117; Resp 18; Pulse Ox 95% on R/A; tw2 14:46 BP 142 / 89; Pulse 121; Resp 18; Pulse Ox 92% on R/A; tw2 15:35 BP 125 / 79; Pulse 124; Resp 19; Temp 100.5(O); Pulse Ox 92% on R/A; tw2 15:53 Pulse 119; Resp 19; Pulse Ox 94% on R/A; tw2 16:35 BP 120 / 69; Pulse 110; Resp 18; Pulse Ox 92% on R/A; tw2 17:16 BP 121 / 91; Pulse 111; Resp 19; Temp 99.3(O); Pulse Ox 93% on R/A; tw2 13:07 Body Mass Index 37.61 (102.51 kg, 165.10 cm) sv ED Course: 13:01 Patient arrived in ED. mr 13:04 Arm band placed on. sv 13:06 Triage completed. sv 13:15 Patient has correct armband on for positive identification. Call light in reach. Side em rails up X2. Adult w/ patient. Pulse ox on. NIBP on. 13:20 Isaiah Ferrer MD is Attending Physician. annie 13:40 Talia Smith RN is Primary Nurse. tw2 14:15 Initial lab(s) drawn, by nd, sent to lab. First set of blood cultures drawn by me. em1 Inserted saline lock: 20 gauge in right antecubital area, using aseptic technique. Blood collected. 14:24 Chest Single View XRAY In Process Unspecified. EDMS 14:32 Second set of blood cultures drawn by nd. tw2 14:45 COVID-19 Sent. tw2 14:45 Influenza Screen (a \T\ B) Sent. tw2 16:09 CT Chest For PE Angio In Process Unspecified. EDMS 17:06 Deric Thomas MD is Referral Physician. annie 17:25 No provider procedures requiring assistance completed. IV discontinued, intact, tw2 bleeding controlled, No redness/swelling at site. Pressure dressing applied. Administered Medications: 14:30 Drug: NS 0.9% 1000 ml Route: IV; Rate: 1 bolus; Site: right antecubital; tw2 15:35 Follow up: Response: No adverse reaction; IV Status: Completed infusion; IV Intake: tw2 1000ml 14:32 Drug: Tylenol 1000 mg Route: PO; tw2 15:34 Follow up: Response: No adverse reaction; Temperature is unchanged; Temperature is tw2 unchanged, provider notified 14:34 Drug: Pepcid 20 mg Route: IVP; Site: right antecubital; tw2 15:35 Follow up: Response: No adverse reaction tw2 14:34 Drug: Albuterol HFA Inhaler 4 puffs Route: Inhalation; tw2 14:38 Drug: Rocephin - (cefTRIAXone) 1 grams {Note: IVP available only.} Route: IVPB; Infused tw2 Over: 5 mins; Site: right antecubital; 14:43 Follow up: Response: No adverse reaction; IV Status: Completed infusion; IV Intake: [id number] 14:50 Drug: Zithromax 500 mg Route: IVPB; Infused Over: 1 hrs; Site: right antecubital; tw2 15:55 Follow up: Response: No adverse reaction; IV Status: Completed infusion; IV Intake: tw2 250ml 15:42 Drug: NS 0.9% 1000 ml Route: IV; Rate: 1 bolus; Site: right antecubital; tw2 17:17 Follow up: Response: No adverse reaction; IV Status: Completed infusion; IV Intake: tw2 1000ml 15:42 Drug: Motrin 800 mg Route: PO; tw2 17:19 Follow up: Response: No adverse reaction; Temperature is decreased tw2 15:58 Drug: Decadron - Dexamethasone 6 mg Route: IVP; Site: right antecubital; tw2 17:17 Follow up: Response: No adverse reaction tw2 15:58 Drug: Aspirin 162 mg Route: PO; tw2 17:17 Follow up: Response: No adverse reaction tw2 Intake: 14:43 IV: 10ml; Total: 10ml. tw2 15:35 IV: 1000ml; Total: 1010ml. tw2 15:55 IV: 250ml; Total: 1260ml. tw2 17:17 IV: 1000ml; Total: 2260ml. tw2 Output: 17:24 Urine: 900ml (Voided); Total: 900ml. tw2 Outcome: 17:07 Discharge ordered by . annie 17:25 Discharged to home ambulatory, with family. tw2 17:25 Condition: stable 17:25 Discharge instructions given to patient, family, Instructed on discharge instructions, follow up and referral plans. medication usage, Demonstrated understanding of Prescriptions given X 4. 17:26 Patient left the ED. tw2 Addendum: 09/06/2020 09:47 Addendum: COVID-19 Result: Positive result giiven to ED physician to notify pt. i w Physician: Isaiah Ferrer MD Physician was able to contact pt and pt was notified of positive COVID-19 swab result. Physician answered pt questions. Signatures: Dispatcher [employer] Dai Sebastian, Isaiah Dumont RN, MD MD cha Charlton, Corinna Greene, Tavo, RN RN em Faye Bazan RN RN Steve Mckinley [facility] Talia Smith RN RN tw2 Corrections: (The following items were deleted from the chart) 09/03 13:08 13:05 Acuity: PAULINE 3 sv sv 15:59 15:53 BP 125 / 79; Pulse 119bpm; Resp 19bpm; Pulse Ox 94% RA; tw2 tw2 17:19 17:16 BP 121 / 91; Pulse 111bpm; Resp 19bpm; Pulse Ox 93% RA; tw2 tw2
== END 2020-09-03 17:26 | disposition home or self-care (01) ==
LOC: ER 12:58
DX: U07.1 COVID-19 (principal); J06.9 Acute upper respiratory infection, unspecified; R50.9 Fever, unspecified; J98.11 Atelectasis
CPT/HCPCS: 96365; 96361; 87040 ×2; 85025; 36415; 80053; 83880; 87804 ×2; 71275; 71045; 96375; 99284; U0002; Q9967; J1100; J0456; J0696; J7050; J7030 ×2

== ENCOUNTER 2020-09-11 03:34 | Inpatient (IN) | payer OTHER ==
--- NOTE | 2020-09-11 04:11 | EDPHYS ---
Physician Documentation [facility] Name: Shna Faye Age: 35 yrs Sex: Male : 1985 Arrival Date: 09/11/2020 Time: 03:37 Bed 6 Private MD: ED Physician Isaiah Ferrer HPI: 09/11 03:58 This 35 yrs old Male presents to ER via Unassigned with complaints of Cough. annie 03:58 The patient or guardian reports cough, difficulty breathing. Onset: The annie symptoms/episode began/occurred 1 week(s) ago. Severity of symptoms: At their worst the symptoms were moderate, in the emergency department the symptoms are actually worse, markedly. Modifying factors: The symptoms are alleviated by inhaler, nebulizer treatment, prescription meds, the symptoms are aggravated by exertion, smoke, talking. Associated signs and symptoms: Pertinent positives: sore throat. The patient has not experienced similar symptoms in the past. Historical: - Allergies: 04:04 No Known Allergies; rv - PMHx: 04:04 Anxiety; BRAIN DISORDER, ONE SIDE MORE DEVELOPED THAN THE OTHER; CVA (1993); rv Depression; mental retardation; Seizures; WHEELCHAIR BOUND, CAN AMBULATE WITH ASSITANCE. WEAKNESS; (no longer current. Pt ambulatory and able to perform ADL's); - PSHx: 04:04 Unable to obtain; rv - Immunization history:: Adult Immunizations up to date. - Social history:: Smoking status: unknown. - Family history:: not pertinent. ROS: 03:58 Constitutional: Negative for fever, chills, and weight loss, Eyes: Negative for injury, annie pain, redness, and discharge, ENT: Negative for injury, pain, and discharge, Neck: Negative for injury, pain, and swelling, Abdomen/GI: Negative for abdominal pain, nausea, vomiting, diarrhea, and constipation, Back: Negative for injury and pain, : Negative for injury, bleeding, discharge, and swelling, MS/Extremity: Negative for injury and deformity, Skin: Negative for injury, rash, and discoloration, Neuro: Negative for headache, weakness, numbness, tingling, and seizure, Psych: Negative for depression, anxiety, suicide ideation, homicidal ideation, and hallucinations, Allergy/Immunology: Negative for hives, rash, and allergies, Endocrine: Negative for neck swelling, polydipsia, polyuria, polyphagia, and marked weight changes, Hematologic/Lymphatic: Negative for swollen nodes, abnormal bleeding, and unusual bruising. 03:58 Cardiovascular: Positive for orthopnea. 03:58 Respiratory: Positive for cough, dyspnea on exertion, shortness of breath. Exam: 03:58 Constitutional: This is a well developed, well nourished patient who is awake, alert, annie and in no acute distress. Head/Face: Normocephalic, atraumatic. Eyes: Pupils equal round and reactive to light, extra-ocular motions intact. Lids and lashes normal. Conjunctiva and sclera are non-icteric and not injected. Cornea within normal limits. Periorbital areas with no swelling, redness, or edema. ENT: Nares patent. No nasal discharge, no septal abnormalities noted. Tympanic membranes are normal and external auditory canals are clear. Oropharynx with no redness, swelling, or masses, exudates, or evidence of obstruction, uvula midline. Mucous membranes moist. Neck: Trachea midline, no thyromegaly or masses palpated, and no cervical lymphadenopathy. Supple, full range of motion without nuchal rigidity, or vertebral point tenderness. No Meningismus. Chest/axilla: Normal chest wall appearance and motion. Nontender with no deformity. No lesions are appreciated. Respiratory: Lungs have equal breath sounds bilaterally, clear to auscultation and percussion. No rales, rhonchi or wheezes noted. No increased work of breathing, no retractions or nasal flaring. Abdomen/GI: Soft, non-tender, with normal bowel sounds. No distension or tympany. No guarding or rebound. No evidence of tenderness throughout. Back: No spinal tenderness. No costovertebral tenderness. Full range of motion. Male : Normal genitalia with no discharge or lesions. Skin: Warm, dry with normal turgor. Normal color with no rashes, no lesions, and no evidence of cellulitis. MS/ Extremity: Pulses equal, no cyanosis. Neurovascular intact. Full, normal range of motion. Neuro: Awake and alert, GCS 15, oriented to person, place, time, and situation. Cranial nerves II-XII grossly intact. Motor strength 5/5 in all extremities. Sensory grossly intact. Cerebellar exam normal. Normal gait. Psych: Awake, alert, with orientation to person, place and time. Behavior, mood, and affect are within normal limits. 03:58 Cardiovascular: Rate: tachycardic, Rhythm: regular, Pulses: Pulses are 4+ in bilateral radial, brachial, femoral, popliteal, posterior tibial and and dorsalis pedis arteries.. Heart sounds: normal, Edema: is not appreciated, JVD: is not appreciated. 04:04 ECG was reviewed by the Attending Physician. [facility] Vital Signs: 04:00 Pulse 125; Resp 35; Temp 100.6; Pulse Ox 76% on R/A; Weight 72.57 kg; rv 04:52 BP 100 / 39; Pulse 122; Resp 45; Pulse Ox 91% ; ea MDM: 03:43 Patient medically screened. [facility] 04:01 Differential Diagnosis: Bronchitis Influenza Upper Respiratory Infection Pharyngitis annie Asthma Exacerbation Viral Syndrome Pneumonia. Data reviewed: vital signs, nurses notes, old medical records, lab test result(s), EKG, radiologic studies, CT scan, plain films. Data interpreted: satellite project site monitor: rate is 126 beats/min, rhythm is regular. Test interpretation: by ED physician or midlevel provider: ECG, plain radiologic studies. Counseling: I had a detailed discussion with the patient and/or guardian regarding: the historical points, exam findings, and any diagnostic results supporting the discharge/admit diagnosis, the presence of at least one elevated blood pressure reading (>120/80) during this emergency department visit, lab results, radiology results, the need for further work-up and treatment in the hospital. 09/11 03:57 Order name: Basic Metabolic Panel; Complete Time: 05:19 [facility] 09/11 03:57 Order name: CBC with Diff [facility] 09/11 03:57 Order name: LFT's [facility] 09/11 03:57 Order name: Magnesium [facility] 09/11 03:57 Order name: NT PRO-BNP [facility] 09/11 03:57 Order name: PT-INR [facility] 09/11 03:57 Order name: Troponin (emerg Dept Use Only) [facility] 09/11 03:57 Order name: Blood Culture Adult (2) [facility] 09/11 03:57 Order name: CRP [facility] 09/11 03:57 Order name: Ferritin [facility] 09/11 04:20 Order name: Lactate sg 09/11 04:20 Order name: Procalcitonin la1 09/11 04:32 Order name: CBC with Automated Diff; Complete Time: 05:19 EDMD 12/ 04:39 Order name: Protime (+INR); Complete Time: 04:56 EDMS 12 04:41 Order name: ABG Arterial Blood Gas; Complete Time: 04:56 EDMS 12 04:44 Order name: Lactate; Complete Time: 04:56 EDMS 09/11 04:52 Order name: Liver (Hepatic) Function; Complete Time: 05:19 EDMS 12 04:52 Order name: Troponin (Emerg Dept Use Only); Complete Time: 05:19 EDMS 12 04:52 Order name: NT PRO-BNP; Complete Time: 05:19 EDMS 09/11 04:52 Order name: Magnesium; Complete Time: 05:19 EDMD 12 05:26 Order name: Procalcitonin; Complete Time: 05:51 EDMS 09/11 06:52 Order name: Lactate EDMD 09/11 07:35 Order name: Lactate Sepsis 2 HR Follow-up EDMD 09/11 07:49 Order name: Glucose, Ancillary Testing EDMD 09/11 08:52 Order name: Hemoglobin A1c [facility] 09/11 11:21 Order name: Troponin I EDMD 09/11 12:02 Order name: Urine Dipstick--Ancillary (enter results) 09/11 12:06 Order name: Glucose, Ancillary Testing [facility] 09/11 12:35 Order name: Urine Dipstick-Ancillary [facility] 09/11 03:57 Order name: XRAY Chest (1 view) [facility] 09/11 03:57 Order name: EKG; Complete Time: 03:58 [facility] 09/11 03:57 Order name: Cardiac monitoring; Complete Time: 04:11 [facility] 09/11 03:57 Order name: EKG - Nurse/Tech; Complete Time: 04:11 [facility] 09/11 03:57 Order name: IV Saline Lock; Complete Time: 04:11 [facility] 09/11 03:57 Order name: Labs collected and sent; Complete Time: 04:11 [facility] 09/11 03:57 Order name: O2 Per Protocol; Complete Time: 04:11 [facility] 09/11 03:57 Order name: O2 Sat Monitoring; Complete Time: 04:11 [facility] 09/11 03:57 Order name: Oxygen Per Protocol; Complete Time: 04:15 [facility] 09/11 17:09 Order name: Troponin I EDMD 09/11 17:29 Order name: Glucose, Ancillary Testing EDMS 09/11 21:23 Order name: Glucose, Ancillary Testing EDMS 09/12 04:01 Order name: Basic Metabolic Panel EDMS 09/12 04:01 Order name: C-Reactive Protein EDMS 09/12 04:01 Order name: Magnesium EDMS 09/12 04:01 Order name: Ferritin EDMS 09/12 04:05 Order name: CBC with Automated Diff EDMS 09/12 04:17 Order name: Blood Culture EDMS 09/12 10:38 Order name: Glucose, Ancillary Testing EDMS 09/12 13:28 Order name: Glucose, Ancillary Testing EDMS 09/12 16:53 Order name: Glucose, Ancillary Testing EDMS EC:04 Rate is 124 beats/min. Rhythm is regular. QRS [place] is Normal. OH interval is normal. annie QRS interval is normal. QT interval is normal. No Q waves. T waves are Normal. No ST changes noted. Clinical impression: Sinus tachycardia. Interpreted by me. Reviewed by me. Administered Medications: 04:16 CANCELLED (Duplicate Order): Tylenol 1000 mg PO once ea 04:28 Drug: Decadron - Dexamethasone 6 mg Route: IVP; Site: left antecubital; ea 05:02 Follow up: Response: No adverse reaction ea 04:28 Drug: Rocephin 1 grams Route: IV; Rate: per protocol; Site: left antecubital; ea 05:01 Follow up: Response: No adverse reaction; IV Status: Completed infusion ea 04:30 Drug: Pepcid 20 mg Route: IVP; Site: left antecubital; ea 05:01 Follow up: Response: No adverse reaction ea 04:33 Drug: Zithromax 500 mg Route: IVPB; Infused Over: 1 hrs; Site: left antecubital; ea 05:02 Follow up: Response: No adverse reaction ea 05:08 Follow up: Response: No adverse reaction; IV Status: Infusion continued upon admission ea 04:36 Drug: Lovenox 1 mg/kg Route: Sub-Q; Site: left lower abdomen; ea 05:01 Follow up: Response: No adverse reaction ea 04:36 Drug: Tylenol 1000 mg Route: PO; ea 05:03 Follow up: Response: No adverse reaction ea 05:00 Drug: NS 0.9% 1000 ml Route: IV; Rate: 1 bolus; Site: left antecubital; ea Disposition: 09/11/20 04:11 Hospitalization ordered by Tristan Momin for Inpatient Admission. Preliminary diagnosis are Other viral pneumonia - covid 19 positive, multifocal pna, Hypoxemia, Fever, unspecified, Acute kidney failure. - Bed requested for Intensive Care Unit. - Status is Inpatient Admission. em - Condition is Stable. - Problem is new. - Symptoms have improved. Signatures: Dispatcher [employer] EDMD Ktae Zepeda RN RN mw Anderson, Corey, MD MD cha Munoz, Edgar RN PILLO em Malik Bourne, HEBREW PROFESSOR-C HEBREW PROFESSOR-Cla1 Josephine Lara RN Manny Quinones ea RN RN Janey Carlisle Ronaldo RN RN rv Corrections: (The following items were deleted from the chart) 04:16 04:16 Tylenol 1000 mg PO once ordered. [facility] 04:16 04:11 Hospitalization Ordered by Tristan Momin MD for Inpatient Admission. Preliminary diagnosis is Other viral pneumonia - covid 19 positive, multifocal pna; Hypoxemia. Bed requested for Telemetry/MedSurg (Inpatient). Status is Inpatient Admission. Condition is Stable. Problem is new. Symptoms have improved. [facility] 04:16 04:16 09/11/2020 04:11 Hospitalization Ordered by Tristan Momin MD for Inpatient annie Admission. Preliminary diagnosis is Other viral pneumonia - covid 19 positive, multifocal pna; Hypoxemia. Bed requested for [facility] ER HOLD. Status is Inpatient Admission. Condition is Stable. Problem is new. Symptoms have improved. 04:21 04:21 LACTATE+C.LAB.BRZ ordered. [facility] EDMD 04:59 04:16 09/11/2020 04:11 Hospitalization Ordered by Tristan Momin MD for Inpatient annie Admission. Preliminary diagnosis is Other viral pneumonia - covid 19 positive, multifocal pna; Hypoxemia; Fever, unspecified. Bed requested for [facility] ER HOLD. Status is Inpatient Admission. Condition is Stable. Problem is new. Symptoms have improved. [facility] 09/12 15:01 09/11 04:59 09/11/2020 04:11 Hospitalization Ordered by Tristan Momin MD for Inpatient eb Admission. Preliminary diagnosis is Other viral pneumonia - covid 19 positive, multifocal pna; Hypoxemia; Fever, unspecified; Acute kidney failure. Bed requested for [facility] ER HOLD. Status is Inpatient Admission. Condition is Stable. Problem is new. Symptoms have improved. annie 09/12 16:17 15:01 09/11/2020 04:11 Hospitalization Ordered by Tristan Momin MD for Inpatient ja1 Admission. Preliminary diagnosis is Other viral pneumonia - covid 19 positive, multifocal pna; Hypoxemia; Fever, unspecified; Acute kidney failure. Bed requested for Intensive Care Unit. Status is Inpatient Admission. Condition is Stable. Problem is new. Symptoms have improved. eb 17:16 16:17 09/11/2020 04:11 Hospitalization Ordered by Tristan Momin MD for Inpatient em Admission. Preliminary diagnosis is Other viral pneumonia - covid 19 positive, multifocal pna; Hypoxemia; Fever, unspecified; Acute kidney failure. Bed requested for Intensive Care Unit. Status is Inpatient Admission. Condition is Stable. Problem is new. Symptoms have improved. ja1
--- NOTE | 2020-09-11 04:11 | ER ---
Nurse's Notes [facility] Name: Shan Faye Age: 35 yrs Sex: Male : 1985 Arrival Date: 09/11/2020 Time: 03:37 Bed 6 Private MD: Diagnosis: Other viral pneumonia-covid 19 positive, multifocal pna;Hypoxemia;Fever, unspecified;Acute kidney failure Presentation: 09/11 04:00 Chief complaint: Parent and/or Guardian states: HE IS HAVING A HARD TIME BREATHING AND rv IS VERY WEAK. Coronavirus screen: Client denies travel out of the [place] in the last 14 days. Coronavirus screen: Client reports previous positive COVID test result. Ebola Screen: No symptoms or risks identified at this time. Initial Sepsis Screen: Does the patient meet any 2 criteria? RR > 20 per min. HR > 90 bpm. Yes Does the patient have a suspected source of infection? Yes: Productive cough/pneumonia. Risk Assessment: Do you want to hurt yourself or someone else? Unable to obtain. Onset of symptoms is unknown. 04:00 Method Of Arrival: Ambulatory rv 04:00 Acuity: PAULINE 2 rv Triage Assessment: 04:04 General: Appears ill, Behavior is calm, cooperative. Pain: Denies pain. EENT: No signs rv and/or symptoms were reported regarding the EENT system. Neuro: Level of Consciousness is awake, alert, obeys commands, Oriented to person, place, time, situation. Cardiovascular: Patient's skin is warm and dry. Respiratory: Airway is patent Respiratory effort is labored, Respiratory pattern is tachypnea Breath sounds are coarse bilaterally. Derm: Skin is intact. Historical: - Allergies: 04:04 No Known Allergies; rv - PMHx: 04:04 Anxiety; BRAIN DISORDER, ONE SIDE MORE DEVELOPED THAN THE OTHER; CVA (1993); rv Depression; mental retardation; Seizures; WHEELCHAIR BOUND, CAN AMBULATE WITH ASSITANCE. WEAKNESS; (no longer current. Pt ambulatory and able to perform ADL's); - PSHx: 04:04 Unable to obtain; rv - Immunization history:: Adult Immunizations up to date. - Social history:: Smoking status: unknown. - Family history:: not pertinent. Screenin:05 Abuse screen: Denies threats or abuse. Denies injuries from another. Nutritional rv screening: No deficits noted. Tuberculosis screening: No symptoms or risk factors identified. Fall Risk None identified. Assessment: 04:51 Reassessment: Patient and/or family updated on plan of care and expected duration. Pain ea level reassessed. Pt remains tachypneic, on high flow O2, tolerating well. Pt reports O2 is helping. Vital Signs: 04:00 Pulse 125; Resp 35; Temp 100.6; Pulse Ox 76% on R/A; Weight 72.57 kg; rv 04:52 BP 100 / 39; Pulse 122; Resp 45; Pulse Ox 91% ; ea ED Course: 03:37 Patient arrived in ED. ag3 03:43 Isaiah Ferrer MD is Attending Physician. annie 03:48 Josephine Lara RN is Primary Nurse. ea 04:03 Triage completed. rv 04:05 Arm band placed on right wrist. Patient placed in the treatment room, on a stretcher, rv Patient notified of wait time. 04:06 Patient has correct armband on for positive identification. surveillance system monitor on. Pulse rv ox on. NIBP on. 04:06 Inserted saline lock: 20 gauge in left antecubital area, using aseptic technique. Blood rv collected. 04:06 Initial lab(s) drawn, by ED staff, sent to lab. First set of blood cultures drawn by ED rv staff. 04:09 Tristan Momin MD is Hospitalizing Provider. [facility] 04:19 XRAY Chest (1 view) In Process Unspecified. EDMS 04:51 No provider procedures requiring assistance completed. Patient admitted, IV remains in ea place. 07:24 Primary Nurse role handed off by Josephine Lara RN 07:24 Dai Manjarrez, PILLO is Primary Nurse. sv 19:10 Primary Nurse role handed off by Dai Manjarrez RN [email or web address] 09/12 08:50 Tavo Greene, PILLO is Primary Nurse. em Administered Medications: 09/11 04:16 CANCELLED (Duplicate Order): Tylenol 1000 mg PO once ea 04:28 Drug: Decadron - Dexamethasone 6 mg Route: IVP; Site: left antecubital; ea 05:02 Follow up: Response: No adverse reaction ea 04:28 Drug: Rocephin 1 grams Route: IV; Rate: per protocol; Site: left antecubital; ea 05:01 Follow up: Response: No adverse reaction; IV Status: Completed infusion ea 04:30 Drug: Pepcid 20 mg Route: IVP; Site: left antecubital; ea 05:01 Follow up: Response: No adverse reaction ea 04:33 Drug: Zithromax 500 mg Route: IVPB; Infused Over: 1 hrs; Site: left antecubital; ea 05:02 Follow up: Response: No adverse reaction ea 05:08 Follow up: Response: No adverse reaction; IV Status: Infusion continued upon admission ea 04:36 Drug: Lovenox 1 mg/kg Route: Sub-Q; Site: left lower abdomen; ea 05:01 Follow up: Response: No adverse reaction ea 04:36 Drug: Tylenol 1000 mg Route: PO; ea 05:03 Follow up: Response: No adverse reaction ea 05:00 Drug: NS 0.9% 1000 ml Route: IV; Rate: 1 bolus; Site: left antecubital; ea Outcome: 04:11 Decision to Hospitalize by Provider. annie 04:51 Admitted to ER Hold. Please see [facility] for further documentation. ea 04:51 Condition: stable 04:51 Instructed on the need for admit, Demonstrated understanding of instructions. 09/12 17:16 Patient left the ED. em Signatures: Dispatcher [employer] Dai Sebastian, RN Isaiah Dumont MD MD cha Munoz, Edgar RN Josephine Cesar RN Rogelio Billy ea [email or web address] Marlo Alaniz RN Ana Maria Patterson ag3 Corrections: (The following items were deleted from the chart) 09/11 05:02 05:02 Response: No adverse reaction; IV Status: Completed infusion ea ea
[2020-09-11 04:27] LABS: Absolute Lymphocytes (CBC) 1.1 K/uL (0.7-4.9); Basophils % 0.3 % (0-1.3); Lymphocytes % 7.1 % (15.3-44.8); MPV 8.3 fL (7.6-11.3); RBC Red Blood Cell Count 4.84 M/uL (4.33-5.43)
[2020-09-11 04:28] LABS: Protime INR 1.29
[2020-09-11] MEDS ORDERED: AZITHROMYCIN 500 MG INJ IVPB ONE (04:28)
[2020-09-11] MEDS ORDERED: ENOXAPARIN 80 MG/0.8 ML SQ ONE (04:28)
[2020-09-11] MEDS ORDERED: dexAMETHasone 10 MG/ML VIAL ONE (04:28)
[2020-09-11] MEDS ORDERED: NA CHLORIDE 0.9% 250 ML ONE (04:29)
[2020-09-11] MEDS ORDERED: FAMOTIDINE 20 MG/2 ML VIAL IV ONE (04:29)
[2020-09-11] MEDS ORDERED: CEFTRIAXONE/SWI 1gm 1 GM/10 ML SYR ONE (04:29)
[2020-09-11] MEDS ORDERED: ACETAMINOPHEN 500 MG TAB ONE (04:31)
[2020-09-11 04:42] LABS: Arterial Blood Carboxyhemoglob 1.5 % (0-1.5); Blood O2 Saturation 89.1 % (92-98.5)
[2020-09-11 04:45] LABS: Albumin 2.7 g/dL (3.4-5.0); Bilirubin Direct 0.2 mg/dL (0-0.2); Bilirubin Total 0.8 mg/dL (0.2-1.0); Magnesium 2.6 mg/dL (1.8-2.4); Potassium 3.8 mmol/L (3.5-5.1); Protein, Total 8.3 g/dL (6.4-8.2); Troponin (Emerg Dept Use Only) 0.3 ng/mL (0.0-0.045)
[2020-09-11 05:05] LABS: Blood Morphology Comment NOTED (NOT SEEN); Platelet Estimate ADEQ; Polychromasia 1+
[2020-09-11] MEDS ORDERED: NA CHLORIDE 0.9% 1,000 ML ONE ×2 (05:11→08:18)
--- NOTE | 2020-09-11 05:52 | P.HP ---
Certification for Inpatient Patient admitted to: Inpatient With expected LOS: >2 Midnights Patient will require the following post-hospital care: None Practitioner: I am a practitioner with admitting privileges, knowledge of patient current condition, hospital course, and medical plan of care. Services: Services provided to patient in accordance with Admission requirements found in Title 42 Section 412.3 of the Code of Federal Regulations <Malik Bourne - Last Filed: 09/11/20 06:02> Patient History Date of Service: 09/11/20 Primary Care Provider: Dr. Allen Reason for admission: Covid Pneumonia History of Present Illness: 35-year-old male with history of seizure disorder, mental retardation, CVA presents emergency department for shortness of breath. Patient was diagnosed with fajardo virus on September 03 and discharged. Caregiver who is his mother reports that over the course of the last few days he has been having increasing shortness of breath, lethargy, decreased appetite. Patient was brought into the emergency department, upon arrival to the ED patient's room air saturations were 33% and respiratory rate was 60. Patient was placed on several [id number] and his saturations improved into the 90s. Patient's respiratory rate also improved. Labs significant for elevated creatinine from baseline at 1.63 elevated white blood cell count 16.2 with left shift, lactic acid 3.2 troponin 0.3 ABG shows pH 7.49 CO2 27.5, PO2 58.7. ED provider wishes to admit patient for further evaluation and management. When I saw the patient in the emergency department he was on high-flow nasal cannula saturating approximately 91%. Mother who is his caregiver was at bedside. Case and plan of care discussed with mother. Code status discussed, at this time patient is full code. Discussed with caregiver that given the severity of his symptoms there is the possibility he could require intubation at some point during the hospitalization. Mother stated that she would think this over. - Past Medical/Surgical History Diabetic: No -: anxiety -: brain disorder (one side more developed than the other) -: CVA (1993) -: depression -: seizures -: Cholecystectomy Psychosocial/ Personal History: Patient is disabled and lives with his mother who is is primary engineering administrator and [employer] - Family History Family History: Reviewed- Non-Contributory - Social History Smoking Status: Never smoker Alcohol use: No CD- Drugs: No Caffeine use: No Place of Residence: Home <Malik Bourne - Last Filed: 09/11/20 06:02> Date of Service: 09/11/20 <Tristan Momin - Last Filed: 09/11/20 20:20> Allergies No Known Drug Allergies Allergy (Verified 03/01/18 16:42) Unknown No Known Allergies Allergy (Uncoded 04/05/18 01:16) Unknown Home Medications: Buspirone HCl [Buspar*] 5 mg PO TID 12/25/15 Citalopram [Celexa*] 20 mg PO DAILY 12/25/15 Levetiracetam [Keppra] 750 mg PO SEECOM 03/01/18 Lurasidone HCl [Latuda] 1 tab PO BEDTIME 03/01/18 Perampanel [Fycompa] 2 mg PO SEECOM 03/01/18 Review of Systems is unable to be obtained <Malik Bourne - Last Filed: 09/11/20 06:02> Physical Examination - Physical Exam General: Alert, In no apparent distress, Oriented x3 HEENT: Atraumatic, Normocephalic, Other (Mucous membranes dry) Neck: Supple Respiratory: Diminished (Bilaterally), Other (Patient is tachypneic with a rate around 30-40 per min) Cardiovascular: Regular rate/rhythm (Sinus tachycardia rate 120) Capillary refill: <2 Seconds Gastrointestinal: Normal bowel sounds, Soft and benign Musculoskeletal: No contractures, No erythema, No tenderness Integumentary: No tenderness/swelling, No erythema, No warmth Neurological: Normal tone, Sensation intact, Abnormal speech (Speech is slurred at baseline) - Studies Laboratory Data (last 24 hrs) 09/11/20 04:03: PT 15.1 H, INR 1.29 09/11/20 04:03: WBC 16.2 H D, Hgb 13.8, Hct 41.0, Plt Count 322 D 09/11/20 03:57: Sodium 133 L, Potassium 3.8, BUN 23 H, Creatinine 1.63 H, Glucose 246 H, Magnesium 2.6 H D, Total Bilirubin 0.8, AST 72 H, ALT 79 H, Alkaline Phosphatase 45 <Malik Bourne - Last Filed: 09/11/20 06:02> - Studies Laboratory Data (last 24 hrs) 09/11/20 04:03: PT 15.1 H, INR 1.29 09/11/20 04:03: WBC 16.2 H D, Hgb 13.8, Hct 41.0, Plt Count 322 D 09/11/20 03:57: Sodium 133 L, Potassium 3.8, BUN 23 H, Creatinine 1.63 H, Glucose 246 H, Magnesium 2.6 H D, Total Bilirubin 0.8, AST 72 H, ALT 79 H, Alkaline Phosphatase 45 <Tristan Momin - Last Filed: 09/11/20 20:20> Assessment and Plan - Plan Assessment Acute respiratory failure with hypoxia secondary to COVID pneumonia Seizure disorder Hyperglycemia Anxiety Mental disability Plan Acute respiratory failure with hypoxia secondary to COVID pneumonia: Continue with IV steroids, oral supplements. Pulmonology consult in place. Daily room air saturations. Full-dose anticoagulation with Eliquis 5 mg p.o. b.i.d.. Supplemental oxygen titrate saturations greater than 80%. Seizure disorder: Continue Keppra 1500 mg p.o. b.i.d. Hyperglycemia: Like related to steroid use, will obtain A1c, sliding scale insulin. Anxiety: P.r.n. Ativan. Mental disability: Stable at this time. Discharge Plan: Home Plan to discharge in: 48 Hours - Advance Directives Does patient have a Living Will: No Does patient have a Durable POA for Healthcare: No - Code Status/Comfort Care Code Status Assessed: Yes (Full code) Critical Care: No Time Spent Managing Pts Care (In Minutes): 55 <Malik Bourne - Last Filed: 09/11/20 06:02> - Plan Patient seen and examined this morning. Plan reviewed with Malik Bourne and agree as noted above. Patient very tachypneic and SpO2 on HFNC still in 80%, switched to BIPAP this morning and a few hours later still remains tachypneic 40-60s, however, patient himself feels a little better, without any other complaints discussed code status with pt's mother who states full code, intubate if necessary continue ICU level of care, patient's status is guarded at this time, I am concerned how long he can continue to be tachypneic in 40-60s on BIPAP before getting tired. will monitor electrolytes / BP and fluid balance, may need some IVF - may be losing more than typical due to his tachypnea <Tristan Momin - Last Filed: 09/11/20 20:20>
[2020-09-11] MEDS ORDERED: ACETAMINOPHEN 500 MG TAB PO PRN (05:54)
[2020-09-11] MEDS ORDERED: ONDANSETRON 4 MG/2 ML VIAL IV PRN (05:54)
[2020-09-11] MEDS ORDERED: LORazepam 2 MG/ML VIAL IV PRN (05:54)
[2020-09-11] MEDS ORDERED: NA CHLORIDE 0.9% 1,000 ML IV SCH (06:00)
[2020-09-11] MEDS ORDERED: GLUCAGON 1 MG/VIAL IM PRN (06:05)
[2020-09-11] MEDS ORDERED: D50W 25 GM/50 ML SYRINGE IV PRN (06:05)
--- NOTE | 2020-09-11 07:09 | EKG ---
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
[2020-09-11] MEDS: INSULIN -REGULAR HUMAN 50 UNIT/0.5 ML ML SQ SCH ×4 (07:30→21:00)
[2020-09-11] MEDS ORDERED: VITAMIN D 1000 UNIT TAB ONE (08:02)
[2020-09-11] MEDS ORDERED: METHYLPREDNISOLONE 125 MG INJ ONE ×2 (08:02→13:51)
[2020-09-11] MEDS ORDERED: ZINC SULFATE 220 MG CAP ONE (08:02)
[2020-09-11] MEDS ORDERED: APIXABAN 5 MG TABLET ONE ×2 (08:02→21:12)
[2020-09-11] MEDS ORDERED: levETIRAcetam 500 MG TAB ONE ×2 (08:03→21:13)
[2020-09-11] MEDS ORDERED: INSULIN -REGULAR HUMAN 50 UNIT/0.5 ML ML ONE ×4 (08:03→21:14)
[2020-09-11] MEDS ORDERED: ASCORBIC ACID 500 MG TABLET ONE ×3 (08:03→21:13)
[2020-09-11] MEDS: ASCORBIC ACID 500 MG TABLET PO SCH ×3 (08:23→21:00)
[2020-09-11] MEDS: VITAMIN D 1000 UNIT TAB PO SCH (08:23)
[2020-09-11] MEDS: ZINC SULFATE 220 MG CAP PO SCH (08:23)
[2020-09-11] MEDS: levETIRAcetam 500 MG TAB PO SCH ×2 (08:23→21:00)
[2020-09-11] MEDS: METHYLPREDNISOLONE 125 MG INJ IV SCH ×3 (08:23→21:00)
[2020-09-11] MEDS: APIXABAN 5 MG TABLET PO SCH ×2 (08:23→21:00)
[2020-09-11] MEDS ORDERED: METHYLPREDNISOLONE 125 MG INJ IV SCH (09:00)
--- NOTE | 2020-09-11 09:10 | RAD REPORT ---
EXAM DESCRIPTION: RAD - Chest Single View - 09/11/2020 4:19 am CLINICAL HISTORY: Cough;Dyspnea COMPARISON: September 03 TECHNIQUE: AP portable chest image was obtained 09/11/2020 4:19 am . FINDINGS: Lung volumes are low. Airspace opacification is present throughout both lung morales with c ardiomegaly. Failure/ volume overload would be most common. Noncardiogenic pulmonary edema etiologies are also possible. No focal consolidation to suspect bacterial pneumonia. Trachea is midline. No daja surable pleural effusion and no pneumothorax. No acute bony abnormality seen. No acute aortic finding s suspected. IMPRESSION: Diffuse bilateral airspace opacification accentuated by shallow inspiration. Failure/volume overload would be most likely.
[2020-09-11] MEDS ORDERED: INFLUENZA VACCINE (for 3y+) 0.5 ML DOSE IMVAC ONE (10:00)
[2020-09-11] MEDS: Levofloxacin500mg IV 500 MG/100 ML BAG IV SCH (10:00)
[2020-09-11] MEDS ORDERED: Levofloxacin500mg IV 500 MG/100 ML BAG IV ONE (10:03)
--- NOTE | 2020-09-11 12:20 | ECHO ---
HEIGHT: 5 ft 5 in WEIGHT: 200 lb 0 oz DATE OF STUDY: 09/11/[address]: Joseph Harris MD 2-DIMENSIONAL: YES M.MODE: YES DOPPLER: YES COLOR FLOW: YES TDS: NO PORTABLE: NO DEFINITY: NO BUBBLE STUDY: NO DIAGNOSIS: ELEVATED TROPONIN CARDIAC HISTORY: CATHERIZATION: NO SURGERY: NO PROSTHETIC VALVE: NO PACEMAKER: NO MEASUREMENTS (cm) DIASTOLIC (NORMALS) SYSTOLIC (NORMALS) IVSd 1.0 (0.6-1.2) LA Diam 3.6 (1.9-4.0) LVEF 53% LVIDd 3.4 (3.5-5.7) LVIDs 2.5 (2.0-3.5) %FS 27% LVPWd 1.0 (0.6-1.2) Ao Diam 3.0 (2.0-3.7) 2 DIMENSIONAL ASSESSMENT: RIGHT ATRIUM: NORMAL LEFT ATRIUM: NORMAL RIGHT VENTRICLE: NORMAL LEFT VENTRICLE: NORMAL TRICUSPID VALVE: NORMAL MITRAL VALVE: NORMAL PULMONIC VALVE: NORMAL AORTIC VALVE: NORMAL PERICARDIAL EFFUSION: NONE AORTIC ROOT: NORMAL LEFT VENTRICULAR WALL MOTION: NORMAL DOPPLER/COLOR FLOW: NORMAL COMMENTS: NORMAL 2D ECHOCARDIOGRAM WITH DOPPLER. NO WALL MOTION ABNORMALITY. NO EFFUSION. TECHNOLOGIST: Gema SNYDER
--- NOTE | 2020-09-11 12:29 | P.CNS ---
Date of Consult: 09/11/20 Primary Care Provider: Dr. Allen Chief Complaint: Respiratory failure from fajardo virus History of Present Illness: Patient is 35 years of age until retardation seizure disorder has a stroke presented with worsening dyspnea respiratory failure he is very tachypneic is currently on BiPAP still tachypneic Allergies No Known Drug Allergies Allergy (Verified 03/01/18 16:42) Unknown No Known Allergies Allergy (Uncoded 04/05/18 01:16) Unknown Home Medications: Buspirone HCl [Buspar*] 5 mg PO TID 12/25/15 Citalopram [Celexa*] 20 mg PO DAILY 12/25/15 Levetiracetam [Keppra] 750 mg PO SEECOM 03/01/18 Lurasidone HCl [Latuda] 1 tab PO BEDTIME 03/01/18 Perampanel [Fycompa] 2 mg PO SEECOM 03/01/18 - Past Medical/Surgical History Diabetic: No -: anxiety -: brain disorder (one side more developed than the other) -: CVA (1993) -: depression -: seizures -: Cholecystectomy Psychosocial/ Personal History: Patient is disabled and lives with his mother who is is primary broom builder and [facility] - Social History Smoking Status: Unknown if ever smoked Alcohol use: No CD- Drugs: No Caffeine use: No Place of Residence: Home Review of Systems is unable to be obtained Physical Examination Temp Pulse Resp BP Pulse Ox 96.9 F 99 H 57 H 105/70 88 L 09/11/20 08:00 09/11/20 08:00 09/11/20 08:00 09/11/20 08:00 09/11/20 08:00 General: Alert, Moderate distress Respiratory: Crackles/rales, Expiratory wheezes Cardiovascular: No edema, Regular rate/rhythm Laboratory Data (last 24 hrs) 09/11/20 04:03: PT 15.1 H, INR 1.29 09/11/20 04:03: WBC 16.2 H D, Hgb 13.8, Hct 41.0, Plt Count 322 D 09/11/20 03:57: Sodium 133 L, Potassium 3.8, BUN 23 H, Creatinine 1.63 H, Glucose 246 H, Magnesium 2.6 H D, Total Bilirubin 0.8, AST 72 H, ALT 79 H, Alkaline Phosphatase 45 - Problems (1) Acute respiratory failure due to severe acute respiratory syndrome coronavirus 2 (SARS-CoV-2) infection Current Visit: Yes Status: Acute Plan: Patient is 35 years of age admitted with respiratory failure from fajardo virus patient's CRP was significantly elevated chest x-ray shows bilateral haziness continue with BiPAP agree with present treatment with the steroids and antibiotics high risk for sepsis is well he is on 75% FiO2 is also anti coagulated labs and x-rays reviewed patient's CPAP was increased
[2020-09-11 12:34] LABS: Urine Blood TRACE (NEG); Urine Glucose TRACE (NEG); Urine Protein 2+ (NEG); Urine Specific Gravity >1.030 (1.005-1.030); Urine pH 5.5 (5.0-7.0)
[2020-09-11] MEDS ORDERED: METHYLPREDNISOLONE 40 MG INJ ONE (21:13)
[2020-09-12 03:42] LABS: Absolute Lymphocytes (CBC) 1.3 K/uL (0.7-4.9); Basophils % 0.2 % (0-1.3); Hematocrit 38.2 % (39.6-49.0); Lymphocytes % 7.7 % (15.3-44.8); MPV 8.7 fL (7.6-11.3); RBC Red Blood Cell Count 4.53 M/uL (4.33-5.43)
[2020-09-12 04:01] LABS: Potassium 3.7 mmol/L (3.5-5.1)
[2020-09-12] MEDS ORDERED: AZITHROMYCIN IV 500 MG in NA CHLORIDE 0.9% 250 ML IVPB SCH (06:00)
[2020-09-12] MEDS ORDERED: CEFTRIAXONE/SWI 1gm 1 GM/10 ML SYR IV SCH (06:00)
[2020-09-12] MEDS: INSULIN -REGULAR HUMAN 50 UNIT/0.5 ML ML SQ SCH ×4 (07:30→20:15)
[2020-09-12] MEDS: Levofloxacin500mg IV 500 MG/100 ML BAG IV SCH (08:00)
[2020-09-12] MEDS: ZINC SULFATE 220 MG CAP PO SCH (09:00)
[2020-09-12] MEDS: ASCORBIC ACID 500 MG TABLET PO SCH ×3 (09:00→20:14)
[2020-09-12] MEDS: VITAMIN D 1000 UNIT TAB PO SCH (09:00)
[2020-09-12] MEDS: levETIRAcetam 500 MG TAB PO SCH ×2 (09:00→20:14)
[2020-09-12] MEDS: METHYLPREDNISOLONE 125 MG INJ IV SCH ×3 (09:00→20:13)
[2020-09-12] MEDS ORDERED: POTASSIUM CL SA 10 MEQ TAB PO ONE ×2 (09:00→10:21)
[2020-09-12] MEDS: APIXABAN 5 MG TABLET PO SCH ×2 (09:00→20:14)
[2020-09-12] MEDS ORDERED: levETIRAcetam 500 MG TAB ONE (10:20)
[2020-09-12] MEDS ORDERED: ZINC SULFATE 220 MG CAP ONE (10:20)
[2020-09-12] MEDS ORDERED: ASCORBIC ACID 500 MG TABLET ONE (10:20)
[2020-09-12] MEDS ORDERED: VITAMIN D 1000 UNIT TAB ONE (10:20)
[2020-09-12] MEDS ORDERED: Levofloxacin500mg IV 500 MG/100 ML BAG IV ONE (10:21)
[2020-09-12] MEDS ORDERED: METHYLPREDNISOLONE 40 MG INJ ONE ×2 (10:21→15:41)
[2020-09-12] MEDS ORDERED: INSULIN -REGULAR HUMAN 50 UNIT/0.5 ML ML ONE ×3 (11:30→17:10)
[2020-09-12] MEDS ORDERED: APIXABAN 5 MG TABLET ONE (13:22)
--- NOTE | 2020-09-12 15:45 | P.PN ---
Subjective Date of Service: 09/12/20 Primary Care Provider: Dr. Allen Chief Complaint: Respiratory failure from fajardo virus Subjective: Improving (Doign much better .Alert. REquiring high concentrationof O2 . Mother at bedside) Review of Systems is unable to be obtained Physical Examination - Vital Signs Temperature: 97.4 F Blood Pressure: 107/68 Pulse: 95 Respirations: 28 Pulse Ox (%): 95 - Physical Exam General: Alert, Cooperative Neck: Supple Respiratory: Clear to auscultation bilaterally - Studies Laboratory Data (last 24 hrs) 09/11/20 04:03: WBC 16.2 H D, Hgb 13.8, Hct 41.0, Plt Count 322 D 09/11/20 03:57: Sodium 133 L, Potassium 3.8, BUN 23 H, Creatinine 1.63 H, Glucose 246 H, Magnesium 2.6 H D, Total Bilirubin 0.8, AST 72 H, ALT 79 H, Alkaline Phosphatase 45 Assessment & Plan - Problems (Diagnosis) (1) Acute respiratory failure due to severe acute respiratory syndrome coronavirus 2 (SARS-CoV-2) infection Current Visit: Yes Status: Acute Plan: Clinicallly improving. CRP elevated. ALbs reviewed. Addsitagliptin. Increase insulin. Po levaquin CRP decliining
--- NOTE | 2020-09-12 18:23 | P.PN ---
Subjective Date of Service: 09/12/20 Primary Care Provider: Dr. Allen Chief Complaint: Respiratory failure from fajardo virus Subjective: Improving (feeling better, tolerated BIPAP overnight) Review of Systems 10-point ROS is otherwise unremarkable Physical Examination - Vital Signs Temperature: 97.4 F Blood Pressure: 107/68 Pulse: 95 Respirations: 28 Pulse Ox (%): 95 - Physical Exam General: Alert, In no apparent distress Respiratory: Other (on BIPAP, slight tachypnea) Cardiovascular: Regular rate/rhythm Gastrointestinal: Soft and benign, No tenderness Musculoskeletal: No tenderness Integumentary: No rashes - Studies Laboratory Data (last 24 hrs) 09/11/20 04:03: WBC 16.2 H D, Hgb 13.8, Hct 41.0, Plt Count 322 D 09/11/20 03:57: Sodium 133 L, Potassium 3.8, BUN 23 H, Creatinine 1.63 H, Glucose 246 H, Magnesium 2.6 H D, Total Bilirubin 0.8, AST 72 H, ALT 79 H, Alkaline Phosphatase 45 Assessment & Plan Physician Review Additional Text: Acute respiratory failure with hypoxia secondary to COVID pneumonia Seizure disorder Hyperglycemia Anxiety Mental disability Plan Acute respiratory failure with hypoxia secondary to COVID pneumonia: Continue with IV steroids, oral supplements. Pulmonology consulted Daily room air saturations. eliquis wean O2 as tolerated improving Seizure disorder: Continue home meds Hyperglycemia: steroid induced, A1c: 7.3, continue sliding scale insulin, add lantus while on high dose steroids Anxiety: P.r.n. Ativan. Mental disability: Stable at this time. Time Spent Managing Pts Care (In Minutes): 35
[2020-09-12] MEDS ORDERED: PERAMPANEL 2 MG PO SCH (18:30)
[2020-09-12] MEDS: SITAGLIPTIN PHOS 100 MG TAB PO SCH (18:46)
[2020-09-12] MEDS: BUSPIRONE HCL 5 MG TABLET PO SCH (20:14)
[2020-09-12] MEDS: INSULIN GLARGINE 100 UNITS/ML SQ SCH (20:15)
[2020-09-12] MEDS ORDERED: INSULIN GLARGINE 100 UNITS/ML SQ SCH (21:00)
[2020-09-13 05:23] LABS: Absolute Lymphocytes (CBC) 0.6 K/uL (0.7-4.9); Basophils % 0.2 % (0-1.3); Hematocrit 37.3 % (39.6-49.0); Lymphocytes % 3.3 % (15.3-44.8); MPV 9.1 fL (7.6-11.3); RBC Red Blood Cell Count 4.33 M/uL (4.33-5.43)
[2020-09-13 05:50] LABS: C-Reactive Protein 80.8 mg/L (<3.00); Ferritin 634.5 ng/mL (26-388); Magnesium 2.7 mg/dL (1.8-2.4); Potassium 4.1 mmol/L (3.5-5.1)
[2020-09-13] MEDS: CITALOPRAM 10 MG TABLET PO SCH (09:00)
[2020-09-13] MEDS: SITAGLIPTIN PHOS 100 MG TAB PO SCH (09:00)
[2020-09-13] MEDS: ASCORBIC ACID 500 MG TABLET PO SCH ×3 (09:00→20:18)
[2020-09-13] MEDS: VITAMIN D 1000 UNIT TAB PO SCH (09:00)
[2020-09-13] MEDS: levoFLOXacin 500 MG TAB PO SCH (09:00)
[2020-09-13] MEDS: APIXABAN 5 MG TABLET PO SCH ×2 (09:00→20:18)
[2020-09-13] MEDS: levETIRAcetam 500 MG TAB PO SCH ×2 (09:00→20:19)
[2020-09-13] MEDS: METHYLPREDNISOLONE 125 MG INJ IV SCH ×3 (09:01→20:19)
[2020-09-13] MEDS: ZINC SULFATE 220 MG CAP PO SCH (09:01)
[2020-09-13] MEDS: BUSPIRONE HCL 5 MG TABLET PO SCH ×3 (09:01→20:18)
[2020-09-13] MEDS: INSULIN -REGULAR HUMAN 50 UNIT/0.5 ML ML SQ SCH ×4 (09:01→20:20)
[2020-09-13] MEDS: INSULIN GLARGINE 100 UNITS/ML SQ SCH ×2 (09:03→20:21)
--- NOTE | 2020-09-13 11:27 | P.PN ---
Subjective Date of Service: 09/13/20 Primary Care Provider: Dr. Allen Chief Complaint: Respiratory failure from fajardo virus Subjective: Improving (Patient is improving he is feeling better although still on high concentrations of oxygen) Physical Examination - Vital Signs Temperature: 97 F Blood Pressure: 112/63 Pulse: 71 Respirations: 33 Pulse Ox (%): 96 - Physical Exam General: Alert, Cooperative Respiratory: Clear to auscultation bilaterally Cardiovascular: No edema, Normal S1 S2 Assessment & Plan - Problems (Diagnosis) (1) Acute respiratory failure due to severe acute respiratory syndrome coronavirus 2 (SARS-CoV-2) infection Current Visit: Yes Status: Acute Plan: Doing much better feeling better although on high concentrations of oxygen will continue to wean down on the oxygen blood sugars elevated CRP is declining patient is on insulin Discharge Plan: Home Plan to discharge in: 48 Hours
--- NOTE | 2020-09-13 12:43 | P.PN ---
Subjective Date of Service: 09/13/20 Primary Care Provider: Dr. Allen Chief Complaint: Respiratory failure from fajardo virus Subjective: Improving (Feels he is breathing more comfortably, denies chest pain/abdominal pain/diarrhea on BIPAP overnight, HFNC this morning) Review of Systems 10-point ROS is otherwise unremarkable Physical Examination - Vital Signs Temperature: 97 F Blood Pressure: 112/63 Pulse: 71 Respirations: 33 Pulse Ox (%): 96 - Physical Exam General: Alert, In no apparent distress HEENT: Sclerae nonicteric Respiratory: Other (Nonlabored on HFNC, tachypneic 30s) Cardiovascular: No edema, Regular rate/rhythm Gastrointestinal: Soft and benign, No tenderness Musculoskeletal: No tenderness Integumentary: No rashes Neurological: Normal speech, Normal affect Assessment & Plan Physician Review Additional Text: Acute respiratory failure with hypoxia secondary to COVID pneumonia Seizure disorder Hyperglycemia Anxiety Mental disability Plan Acute respiratory failure with hypoxia secondary to COVID pneumonia: Continue with IV steroids, oral supplements. Pulmonology consulted Daily room air saturations. wean O2 as tolerated continues to improve CRP downtrending continue eliquis Seizure disorder: Continue home meds Hyperglycemia: worsened due to steroid use, A1c: 7.3, continue sliding scale insulin, added lantus while on high dose steroids, increase as needed Anxiety: P.r.n. Ativan. Mental disability: Stable at this time. Dispo: Anticipate discharge home in ~2 days, will likely need home O2 as well Time Spent Managing Pts Care (In Minutes): 35
[2020-09-14 05:01] LABS: Absolute Lymphocytes (CBC) 0.6 K/uL (0.7-4.9); Basophils % 0.2 % (0-1.3); Hematocrit 38.3 % (39.6-49.0); Lymphocytes % 3.8 % (15.3-44.8); MPV 8.7 fL (7.6-11.3); RBC Red Blood Cell Count 4.48 M/uL (4.33-5.43)
[2020-09-14 05:52] LABS: BUN Blood Urea Nitrogen 25 mg/dL (7-18); Bicarbonate 26 mmol/L (21-32); Ferritin 464.7 ng/mL (26-388); Glucose Level 274 mg/dL (74-106); Magnesium 2.5 mg/dL (1.8-2.4); Potassium 4.2 mmol/L (3.5-5.1); Sodium Level 136 mmol/L (136-145)
[2020-09-14] MEDS: INSULIN -REGULAR HUMAN 50 UNIT/0.5 ML ML SQ SCH ×4 (07:30→21:50)
[2020-09-14] MEDS: BUSPIRONE HCL 5 MG TABLET PO SCH ×3 (09:00→21:49)
[2020-09-14] MEDS: ASCORBIC ACID 500 MG TABLET PO SCH ×3 (09:00→21:48)
[2020-09-14] MEDS: VITAMIN D 1000 UNIT TAB PO SCH (09:00)
[2020-09-14] MEDS: METHYLPREDNISOLONE 125 MG INJ IV SCH ×3 (09:00→21:48)
[2020-09-14] MEDS: CITALOPRAM 10 MG TABLET PO SCH (09:00)
[2020-09-14] MEDS: ZINC SULFATE 220 MG CAP PO SCH (09:00)
[2020-09-14] MEDS: SITAGLIPTIN PHOS 100 MG TAB PO SCH (09:00)
[2020-09-14] MEDS: levETIRAcetam 500 MG TAB PO SCH ×2 (09:00→21:00)
[2020-09-14] MEDS: INSULIN GLARGINE 100 UNITS/ML SQ SCH ×2 (09:00→21:49)
[2020-09-14] MEDS: levoFLOXacin 500 MG TAB PO SCH (09:00)
[2020-09-14] MEDS: ASPIRIN EC 81 MG TAB PO SCH (09:00)
[2020-09-14] MEDS ORDERED: NA CHLORIDE 0.9% 500 ML IV ONE (09:29)
--- NOTE | 2020-09-14 10:16 | P.PN ---
Subjective Date of Service: 09/14/20 Primary Care Provider: Dr. Allen Chief Complaint: Respiratory failure from fajardo virus Subjective: Improving (Patient continues to report breathing more comfortably/feeling better. Still requiring BiPAP/ HFNC but weaning down.) Review of Systems 10-point ROS is otherwise unremarkable Physical Examination - Vital Signs Temperature: 96.6 F Blood Pressure: 112/57 Pulse: 59 Respirations: 32 Pulse Ox (%): 97 - Physical Exam General: Alert, In no apparent distress HEENT: Sclerae nonicteric Cardiovascular: No edema, Regular rate/rhythm Gastrointestinal: Soft and benign, No tenderness Musculoskeletal: No tenderness Neurological: Normal affect Assessment & Plan Physician Review Additional Text: Acute respiratory failure with hypoxia secondary to COVID pneumonia Seizure disorder Hyperglycemia Anxiety Mental disability Plan Acute respiratory failure with hypoxia secondary to COVID pneumonia: Continue with IV steroids (down to 40 TID), oral supplements. Pulmonology following Daily room air saturations. wean O2 as tolerated continues to improve slowly CRP downtrending continue eliquis Seizure disorder: Continue home meds Hyperglycemia: worsened due to steroid use, A1c: 7.3, continue sliding scale insulin, added lantus while on high dose steroids, increase as needed Anxiety: P.r.n. Ativan. Mental disability: Stable at this time. Dispo: Anticipate discharge home in ~2 days, will likely need home O2 Time Spent Managing Pts Care (In Minutes): 32
--- NOTE | 2020-09-14 11:37 | P.PN ---
Subjective Date of Service: 09/14/20 Primary Care Provider: Dr. Allen Chief Complaint: Respiratory failure from fajardo virus Subjective: Improving (Patient is doing better tolerating nasal cannula oxygen no new complaint) Physical Examination - Vital Signs Temperature: 96.6 F Blood Pressure: 112/57 Pulse: 59 Respirations: 32 Pulse Ox (%): 97 - Physical Exam General: Alert, Cooperative Assessment & Plan - Problems (Diagnosis) (1) Acute respiratory failure due to severe acute respiratory syndrome coronavirus 2 (SARS-CoV-2) infection Current Visit: Yes Status: Acute Plan: Respiratory failure improving change to nasal cannula oxygen once is on 4 L plan for discharge CRP is less than 50 reduce dose of Solu-Medrol possible discharge in 1 or 2 day
[2020-09-14] MEDS: APIXABAN 5 MG TABLET PO SCH ×2 (11:46→21:47)
[2020-09-14] MEDS ORDERED: NA CHLORIDE 0.9% 1,000 ML IV ONE (14:54)
[2020-09-15 06:10] LABS: Absolute Lymphocytes (CBC) 0.7 K/uL (0.7-4.9); Basophils % 0.1 % (0-1.3); Hematocrit 37.3 % (39.6-49.0); Lymphocytes % 6.3 % (15.3-44.8); MPV 8.8 fL (7.6-11.3); RBC Red Blood Cell Count 4.35 M/uL (4.33-5.43)
[2020-09-15 06:37] LABS: BUN Blood Urea Nitrogen 19 mg/dL (7-18); Bicarbonate 25 mmol/L (21-32); Ferritin 398.5 ng/mL (26-388); Glucose Level 229 mg/dL (74-106); Magnesium 2.4 mg/dL (1.8-2.4); Potassium 4.5 mmol/L (3.5-5.1); Sodium Level 133 mmol/L (136-145)
[2020-09-15 07:12] LABS: Blood Morphology Comment NOT SEEN (NOT SEEN); Platelet Estimate ADEQ
[2020-09-15] MEDS: INSULIN -REGULAR HUMAN 50 UNIT/0.5 ML ML SQ SCH ×4 (07:30→20:52)
[2020-09-15] MEDS: METHYLPREDNISOLONE 125 MG INJ IV SCH ×3 (08:53→20:57)
[2020-09-15] MEDS: VITAMIN D 1000 UNIT TAB PO SCH (08:54)
[2020-09-15] MEDS: ASPIRIN EC 81 MG TAB PO SCH (08:54)
[2020-09-15] MEDS: levETIRAcetam 500 MG TAB PO SCH ×2 (08:54→20:53)
[2020-09-15] MEDS: CITALOPRAM 10 MG TABLET PO SCH (08:55)
[2020-09-15] MEDS: APIXABAN 5 MG TABLET PO SCH ×2 (08:55→20:51)
[2020-09-15] MEDS: SITAGLIPTIN PHOS 100 MG TAB PO SCH (08:55)
[2020-09-15] MEDS: levoFLOXacin 500 MG TAB PO SCH (08:55)
[2020-09-15] MEDS: BUSPIRONE HCL 5 MG TABLET PO SCH ×3 (08:55→20:53)
[2020-09-15] MEDS: ZINC SULFATE 220 MG CAP PO SCH (08:55)
[2020-09-15] MEDS: INSULIN GLARGINE 100 UNITS/ML SQ SCH ×2 (08:56→20:52)
--- NOTE | 2020-09-15 09:03 | P.PN ---
Subjective Date of Service: 09/15/20 Primary Care Provider: Dr. Allen Chief Complaint: Respiratory failure from fajardo virus Subjective: No new changes (No acute events overnight. Patient on BiPAP overnight, reports feeling better/breathing better. Reports good appetite, has been eating/drinking) Review of Systems 10-point ROS is otherwise unremarkable Physical Examination - Vital Signs Temperature: 97.3 F Blood Pressure: 114/71 Pulse: 69 Respirations: 34 Pulse Ox (%): 86 - Physical Exam General: Alert, In no apparent distress HEENT: Sclerae nonicteric Respiratory: Other (Tachypneic (high 20s), on BiPAP) Cardiovascular: No edema, Regular rate/rhythm Gastrointestinal: Soft and benign, No tenderness Musculoskeletal: No tenderness Assessment & Plan Physician Review Additional Text: Acute respiratory failure with hypoxia secondary to COVID pneumonia Sepsis due to COVID pneumonia Seizure disorder Hyperglycemia Anxiety Mental disability Plan Acute respiratory failure with hypoxia secondary to COVID pneumonia: Sepsis due to COVID pneumonia Continue with IV Solu-Medrol 40 TID, oral supplements. Pulmonology following Still requiring BiPAP/high-flow nasal cannula, but reports he is continuing to feel better Daily room air saturations. wean O2 as tolerated CRP and ferritin downtrending continue eliquis Triggered sepsis alert [facility] protocol obtain lactate which was elevated, patient has sepsis secondary to COVID Pneumonia Received normal saline bolus yesterday, and had improvement of lactate Seizure disorder: Continue home meds Hyperglycemia: worsened due to steroid use, A1c: 7.3, continue sliding scale insulin, added lantus and Januvia while on high dose steroids Anxiety: P.r.n. Ativan. Mental disability: Stable at this time. Dispo: Anticipate discharge home in ~2 days, will need home O2 Time Spent Managing Pts Care (In Minutes): 35
--- NOTE | 2020-09-15 12:00 | RAD REPORT ---
EXAM DESCRIPTION: RAD - Chest Single View - 09/15/2020 11:54 am CLINICAL HISTORY: Pneumonia COMPARISON: Portable chest September 11, CT chest September 03 TECHNIQUE: AP portable chest image was obtained 09/15/2020 11:54 am . FINDINGS: Lung volumes are low, further reduced from the September 11 study. Extensive airspace opacif ication is present in the left lung field, base of the right upper lobe and in the right lung base. E christina when adjusting for the lower lung volumes, findings represent a substantial progression of the bi lateral airspace opacification. Trachea is midline. Heart and vasculature are normal. No measurable p leural effusion and no pneumothorax. IMPRESSION: Significant worsening of the bilateral pneumonia findings since the September 11 study.
[2020-09-15] MEDS: ASCORBIC ACID 500 MG TABLET PO SCH ×3 (12:23→20:53)
[2020-09-15 14:10] LABS: Arterial Blood Carboxyhemoglob 0.7 % (0-1.5); Blood Gas Oxyhemoglobin 87.5 % (94-97); Blood O2 Saturation 89.1 % (92-98.5)
--- NOTE | 2020-09-15 14:37 | CON ---
The patient is a 35-year-old, who was admitted to Dr. Momin's service on 09/11/2020. Reason For Consultation: Elevated troponin. History Of Present Illness: Mr. Faye is a 35-year-old. He has COVID virus. He has seizure, anxie ty, depression, CVA, and brain disorder. He is wheelchair bound. Came in with no chest pain, mostly shortness of breath. He had a pO2 of 58, pCO2 of 27, pH of 7.49, elevated liver function test and e levated white count. Creatinine is 1.63. BNP was 1066. Procalcitonin was elevated. Troponin was 0 .3. We were asked to consult. No cardiac symptoms from a chest pain standpoint. Past Medical History: As stated earlier. Allergies: NONE. Medications: At home include BuSpar, Celexa, and Keppra. Review of Systems: Negative. Social History: As stated earlier. Physical Examination: Normal from cardiovascular standpoint. Impression And Plan: Elevated troponin, most likely secondary to pneumonia and may be sepsis. He phillips s elevated procalcitonin. I do not think we are dealing with an acute coronary syndrome, but however with his recent COVID, an echocardiogram is recommended to rule out cardiomyopathy. NB/MODL Voice ID: [id number] Report ID: [id number]
[2020-09-16 05:34] LABS: BUN Blood Urea Nitrogen 20 mg/dL (7-18); Bicarbonate 28 mmol/L (21-32); Ferritin 385.8 ng/mL (26-388); Glucose Level 257 mg/dL (74-106); Magnesium 2.5 mg/dL (1.8-2.4); Potassium 4.7 mmol/L (3.5-5.1); Sodium Level 131 mmol/L (136-145)
[2020-09-16] MEDS: CITALOPRAM 10 MG TABLET PO SCH (09:09)
[2020-09-16] MEDS: APIXABAN 5 MG TABLET PO SCH ×2 (09:09→21:29)
[2020-09-16] MEDS: levoFLOXacin 500 MG TAB PO SCH (09:09)
[2020-09-16] MEDS: BUSPIRONE HCL 5 MG TABLET PO SCH ×3 (09:10→21:31)
[2020-09-16] MEDS: VITAMIN D 1000 UNIT TAB PO SCH (09:10)
[2020-09-16] MEDS: ZINC SULFATE 220 MG CAP PO SCH (09:10)
[2020-09-16] MEDS: ASCORBIC ACID 500 MG TABLET PO SCH ×3 (09:10→21:34)
[2020-09-16] MEDS: ASPIRIN EC 81 MG TAB PO SCH (09:10)
[2020-09-16] MEDS: SITAGLIPTIN PHOS 100 MG TAB PO SCH (09:10)
[2020-09-16] MEDS: METHYLPREDNISOLONE 125 MG INJ IV SCH (09:10)
[2020-09-16] MEDS: levETIRAcetam 500 MG TAB PO SCH ×2 (09:21→21:30)
[2020-09-16] MEDS: INSULIN GLARGINE 100 UNITS/ML SQ SCH ×2 (09:21→21:33)
[2020-09-16] MEDS: INSULIN -REGULAR HUMAN 50 UNIT/0.5 ML ML SQ SCH ×4 (09:22→21:32)
--- NOTE | 2020-09-16 09:39 | P.PN ---
Subjective Date of Service: 09/16/20 Primary Care Provider: Dr. Allen Chief Complaint: Respiratory failure from fajardo virus Subjective: No new changes (Patient reports feeling better, states everything feels better this morning Patient appeared more fatigued/tired yesterday, needing more oxygen. Repeat chest x-ray with worsening bilateral opacities. ABG was obtained yesterday afternoon and patient was placed on BiPAP) Review of Systems 10-point ROS is otherwise unremarkable Physical Examination - Vital Signs Temperature: 96.9 F Blood Pressure: 124/81 Pulse: 59 Respirations: 20 Pulse Ox (%): 89 - Physical Exam General: Alert, In no apparent distress HEENT: Sclerae nonicteric Respiratory: Other (Nonlabored, appears comfortable on BiPAP) Cardiovascular: No edema, Regular rate/rhythm Gastrointestinal: Soft and benign, No tenderness Musculoskeletal: No tenderness Integumentary: No rashes Neurological: Normal speech, Normal affect - Studies Microbiology Data (last 24 hrs): 09/11/20 04:20 Blood - Blood Aerobic Blood Culture - Final No growth in 5 days. 09/11/20 04:20 Blood - Blood Anaerobic Blood Culture - Final No growth in 5 days. 09/11/20 04:03 Blood - Blood Aerobic Blood Culture - Final No growth in 5 days. 09/11/20 04:03 Blood - Blood Anaerobic Blood Culture - Final No growth in 5 days. Assessment & Plan Physician Review Additional Text: Acute respiratory failure with hypoxia secondary to COVID pneumonia Sepsis due to COVID pneumonia Seizure disorder Hyperglycemia Anxiety Mental disability Plan Acute respiratory failure with hypoxia secondary to COVID pneumonia: Sepsis due to COVID pneumonia Continue with IV Solu-Medrol 40 TID, oral supplements. Pulmonology following; CRP improving Still requiring BiPAP/high-flow nasal cannula, but reports he is continuing to feel better - CXR yesterday with worsening opacities, ABG with mod-severe ARDS not as tachypneic today, seems more comfortable; will try him on 6L NC this morning, up to chair today continue anya mother updated yesterday Seizure disorder: Continue home meds Hyperglycemia: worsened due to steroid use, A1c: 7.3, continue sliding scale insulin, added lantus and Januvia while on high dose steroids, increased lantus again for better control Anxiety / Mental disability: Stable at this time. Dispo: Anticipate discharge home in ~2 days, will need home O2 if no signfiicant improvement in the next 1-2 days, may benefit from LTACH Time Spent Managing Pts Care (In Minutes): 37
--- NOTE | 2020-09-16 12:09 | P.PN ---
Subjective Date of Service: 09/16/20 Primary Care Provider: Dr. Allen Chief Complaint: Respiratory failure from fajardo virus Condition stable although is feeling better his requiring high concentrations of oxygen chest x-ray no significant change the was changed to BiPAP yesterday Review of Systems is unable to be obtained Physical Examination - Vital Signs Temperature: 96.9 F Blood Pressure: 109/59 Pulse: 64 Respirations: 23 Pulse Ox (%): 95 - Studies Microbiology Data (last 24 hrs): 09/11/20 04:20 Blood - Blood Aerobic Blood Culture - Final No growth in 5 days. 09/11/20 04:20 Blood - Blood Anaerobic Blood Culture - Final No growth in 5 days. 09/11/20 04:03 Blood - Blood Aerobic Blood Culture - Final No growth in 5 days. 09/11/20 04:03 Blood - Blood Anaerobic Blood Culture - Final No growth in 5 days. Assessment & Plan - Problems (Diagnosis) (1) Acute respiratory failure due to severe acute respiratory syndrome coronavirus 2 (SARS-CoV-2) infection Current Visit: Yes Status: Acute Plan: Respiratory failure from fajardo virus CRP level of decline to less than 15 Dc levofloxacin reduce the dose of Solu-Medrol increased dose of insulin blood sugars elevated white count has been declining
[2020-09-16] MEDS ORDERED: INSULIN GLARGINE 100 UNITS/ML SQ SCH (21:00)
[2020-09-16] MEDS: METHYLPREDNISOLONE 40 MG INJ IV SCH (21:31)
[2020-09-17 05:02] LABS: Absolute Lymphocytes (CBC) 0.8 K/uL (0.7-4.9); Basophils % 0.1 % (0-1.3); Hematocrit 42.9 % (39.6-49.0); Lymphocytes % 5.9 % (15.3-44.8); MPV 8.8 fL (7.6-11.3); RBC Red Blood Cell Count 5.01 M/uL (4.33-5.43)
[2020-09-17 05:14] LABS: BUN Blood Urea Nitrogen 20 mg/dL (7-18); Bicarbonate 27 mmol/L (21-32); C-Reactive Protein 8.33 mg/L (<3.00); Glucose Level 236 mg/dL (74-106); Magnesium 2.4 mg/dL (1.8-2.4); Potassium 4.9 mmol/L (3.5-5.1); Sodium Level 131 mmol/L (136-145)
[2020-09-17] MEDS: INSULIN -REGULAR HUMAN 50 UNIT/0.5 ML ML SQ SCH ×4 (07:30→21:00)
--- NOTE | 2020-09-17 08:39 | RAD REPORT ---
EXAM DESCRIPTION: RAD - Chest Single View - 09/17/2020 8:30 am CLINICAL HISTORY: pneumonia, coned positive COMPARISON: September 15 TECHNIQUE: AP portable chest image was obtained 09/17/2020 8:30 am . FINDINGS: Extensive airspace opacification remains throughout the left lung field. Right lung field airspace opacification is less prominent. Adjusting for technique differences, findings are not subst antially different from comparison. There may be slight improvement in the right lung field. Heart and vasculature are normal. No measurable pleural effusion and no pneumothorax. No acute bony abnormality seen. No acute aortic findings suspected. IMPRESSION: Extensive, left greater than right, pneumonia findings showing no improvement or only ve ry slight improvement on the right.
[2020-09-17] MEDS: ZINC SULFATE 220 MG CAP PO SCH (08:45)
[2020-09-17] MEDS: SITAGLIPTIN PHOS 100 MG TAB PO SCH (08:45)
[2020-09-17] MEDS: APIXABAN 5 MG TABLET PO SCH ×2 (08:45→21:35)
[2020-09-17] MEDS: VITAMIN D 1000 UNIT TAB PO SCH (08:46)
[2020-09-17] MEDS: CITALOPRAM 10 MG TABLET PO SCH (08:48)
[2020-09-17] MEDS: ASPIRIN EC 81 MG TAB PO SCH (08:48)
[2020-09-17] MEDS: ASCORBIC ACID 500 MG TABLET PO SCH ×3 (08:48→21:35)
[2020-09-17] MEDS: BUSPIRONE HCL 5 MG TABLET PO SCH ×3 (08:49→21:35)
[2020-09-17] MEDS: INSULIN GLARGINE 100 UNITS/ML SQ SCH ×2 (08:49→21:00)
[2020-09-17] MEDS: levETIRAcetam 500 MG TAB PO SCH ×2 (08:51→21:35)
[2020-09-17] MEDS: METHYLPREDNISOLONE 40 MG INJ IV SCH ×2 (09:04→21:36)
[2020-09-17 10:56] LABS: Arterial Blood Carboxyhemoglob 0.7 % (0-1.5); Blood Gas Oxyhemoglobin 84.1 % (94-97); Blood O2 Saturation 85.7 % (92-98.5)
--- NOTE | 2020-09-17 13:07 | P.PN ---
Subjective Date of Service: 09/17/20 Primary Care Provider: Dr. Allen Chief Complaint: Respiratory failure from fajardo virus Subjective: No new changes Patient states he feels fine. He is still requiring high-flow oxygen. No issues overnight. Physical Examination - Vital Signs Temperature: 98 F Blood Pressure: 161/78 Pulse: 68 Respirations: 17 Pulse Ox (%): 95 - Physical Exam General: In no apparent distress HEENT: Mucous membr. moist/pink Neck: JVD not distended Respiratory: Normal air movement, Crackles/rales (Bibasilar) Cardiovascular: No edema, Regular rate/rhythm, Normal S1 S2 Gastrointestinal: Soft and benign, No tenderness Musculoskeletal: No swelling, No tenderness Integumentary: No rashes Neurological: Other (Nonfocal) Assessment And Plan - Current Problems (Diagnosis) (1) Acute respiratory failure due to severe acute respiratory syndrome coronavirus 2 (SARS-CoV-2) infection Current Visit: Yes Status: Acute (2) Sepsis Current Visit: Yes Status: Acute (3) Hyperglycemia Current Visit: Yes Status: Acute (4) Seizure disorder Current Visit: Yes Status: Acute - Plan Patient improving clinically. CRP has trended down and almost normalized. Continue to wean high-flow to oxygen by nasal cannula. Continue IV steroid Pulmonary is following. Lantus insulin, insulin sliding in Januvia for glucose management. Continue Keppra.
[2020-09-18 05:34] LABS: C-Reactive Protein 4.16 mg/L (<3.00); Ferritin 399.3 ng/mL (26-388)
[2020-09-18] MEDS: INSULIN -REGULAR HUMAN 50 UNIT/0.5 ML ML SQ SCH ×4 (07:30→20:58)
[2020-09-18] MEDS: ZINC SULFATE 220 MG CAP PO SCH (08:28)
[2020-09-18] MEDS: ASCORBIC ACID 500 MG TABLET PO SCH ×3 (08:28→21:00)
[2020-09-18] MEDS: levETIRAcetam 500 MG TAB PO SCH ×2 (08:28→21:01)
[2020-09-18] MEDS: SITAGLIPTIN PHOS 100 MG TAB PO SCH (08:28)
[2020-09-18] MEDS: METHYLPREDNISOLONE 40 MG INJ IV SCH ×2 (08:28→21:00)
[2020-09-18] MEDS: BUSPIRONE HCL 5 MG TABLET PO SCH ×3 (08:28→21:01)
[2020-09-18] MEDS: ASPIRIN EC 81 MG TAB PO SCH (08:28)
[2020-09-18] MEDS: CITALOPRAM 10 MG TABLET PO SCH (08:28)
[2020-09-18] MEDS: VITAMIN D 1000 UNIT TAB PO SCH (08:28)
[2020-09-18] MEDS: APIXABAN 5 MG TABLET PO SCH ×2 (08:28→21:00)
[2020-09-18] MEDS: INSULIN GLARGINE 100 UNITS/ML SQ SCH ×2 (08:29→20:59)
--- NOTE | 2020-09-18 08:32 | P.PN ---
Subjective Date of Service: 09/18/20 Primary Care Provider: Dr. Allen Chief Complaint: Respiratory failure from fajardo virus Condition stable no change still requiring high concentrations of oxygen inflammatory parameters are improving continue to wean oxygen Physical Examination - Vital Signs Temperature: 96.8 F Blood Pressure: 110/70 Pulse: 67 Respirations: 20 Pulse Ox (%): 88 Assessment & Plan - Problems (Diagnosis) (1) Acute respiratory failure due to severe acute respiratory syndrome coronavirus 2 (SARS-CoV-2) infection Current Visit: Yes Status: Acute Plan: Respiratory failure from fajardo virus CRP level of decline to less than 15 reduce the dose of Solu-Medrol increased dose of insulin blood sugars elevated white count has been declining reduce dose of steroids
--- NOTE | 2020-09-18 08:36 | RAD REPORT ---
EXAM DESCRIPTION: RAD - Chest Single View - 09/18/2020 5:29 am CLINICAL HISTORY: pneumonia Chest pain. COMPARISON: Chest Single View dated 09/17/2020; Chest Single View dated 09/15/2020; Chest Single Vie w dated 09/11/2020; Chest Single View dated 09/03/2020 FINDINGS: Portable technique limits examination quality. Bilateral pulmonary opacities are again seen, greater on the left, without significant change since p rior study. The heart is mildly prominent size. No displaced fractures. IMPRESSION: Stable chest since yesterday's examination.
[2020-09-18] MEDS: FLUCONAZOLE 100 MG TAB PO SCH (08:45)
--- NOTE | 2020-09-18 11:21 | P.PN ---
Subjective Date of Service: 09/18/20 Primary Care Provider: Dr. Allen Chief Complaint: Respiratory failure from fajardo virus Patient has no complain. He is tolerating 6 L of oxygen by nasal cannula while eating. Physical Examination - Vital Signs Temperature: 96.8 F Blood Pressure: 110/70 Pulse: 67 Respirations: 20 Pulse Ox (%): 88 - Physical Exam General: Alert, In no apparent distress Neck: Supple Respiratory: Normal air movement, Crackles/rales (Bilateral) Cardiovascular: No edema, Normal S1 S2 Gastrointestinal: Soft and benign, No tenderness Assessment And Plan - Current Problems (Diagnosis) (1) Acute respiratory failure due to severe acute respiratory syndrome coronavirus 2 (SARS-CoV-2) infection Current Visit: Yes Status: Acute (2) Sepsis Current Visit: Yes Status: Acute (3) Hyperglycemia Current Visit: Yes Status: Acute (4) Seizure disorder Current Visit: Yes Status: Acute - Plan Patient improving clinically. Continue oxygen by nasal cannula. Continue IV steroid Pulmonary is following. Lantus insulin, insulin sliding in Octia for glucose management. Continue Keppra.
[2020-09-19 05:12] LABS: Basophils % 0.8 % (0-1.3); Hematocrit 45.3 % (39.6-49.0); Lymphocytes % 8.1 % (15.3-44.8); MPV 8.9 fL (7.6-11.3); RBC Red Blood Cell Count 5.21 M/uL (4.33-5.43)
[2020-09-19 05:31] LABS: BUN Blood Urea Nitrogen 21 mg/dL (7-18); Bicarbonate 28 mmol/L (21-32); Ferritin 433.5 ng/mL (26-388); Glucose Level 208 mg/dL (74-106); Potassium 4.7 mmol/L (3.5-5.1); Sodium Level 133 mmol/L (136-145)
[2020-09-19 05:39] LABS: C-Reactive Protein < 2.90 mg/L (<3.00)
[2020-09-19 06:14] VITALS: BMI 35.9
[2020-09-19 07:03] LABS: Platelet Estimate ADEQ
[2020-09-19 07:04] LABS: Blood Morphology Comment NOT SEEN (NOT SEEN)
[2020-09-19] MEDS: INSULIN -REGULAR HUMAN 50 UNIT/0.5 ML ML SQ SCH ×4 (07:30→20:37)
--- NOTE | 2020-09-19 08:33 | RAD REPORT ---
EXAM DESCRIPTION: RAD - Chest Single View - 09/19/2020 5:43 am CLINICAL HISTORY: pneumonia Chest pain. COMPARISON: Chest Single View dated 09/18/2020; Chest Single View dated 09/17/2020; Chest Single Vie w dated 09/15/2020; Chest Single View dated 09/11/2020 FINDINGS: Portable technique limits examination quality. No significant change is seen in the bilateral pulmonary opacities since comparative study, slightly worse on the left. The heart is mildly prominent size. No displaced fractures. IMPRESSION: Stable chest since 09/18/2020.
[2020-09-19] MEDS: CITALOPRAM 10 MG TABLET PO SCH (09:36)
[2020-09-19] MEDS: VITAMIN D 1000 UNIT TAB PO SCH (09:36)
[2020-09-19] MEDS: APIXABAN 5 MG TABLET PO SCH ×2 (09:36→20:36)
[2020-09-19] MEDS: levETIRAcetam 500 MG TAB PO SCH ×2 (09:36→20:36)
[2020-09-19] MEDS: BUSPIRONE HCL 5 MG TABLET PO SCH ×3 (09:36→20:36)
[2020-09-19] MEDS: FLUCONAZOLE 100 MG TAB PO SCH (09:36)
[2020-09-19] MEDS: SITAGLIPTIN PHOS 100 MG TAB PO SCH (09:36)
[2020-09-19] MEDS: ASPIRIN EC 81 MG TAB PO SCH (09:36)
[2020-09-19] MEDS: ASCORBIC ACID 500 MG TABLET PO SCH ×3 (09:36→20:36)
[2020-09-19] MEDS: ZINC SULFATE 220 MG CAP PO SCH (09:36)
[2020-09-19] MEDS: METHYLPREDNISOLONE 40 MG INJ IV SCH ×2 (09:37→16:32)
[2020-09-19] MEDS: INSULIN GLARGINE 100 UNITS/ML SQ SCH ×2 (09:37→20:38)
--- NOTE | 2020-09-19 10:54 | P.PN ---
Subjective Date of Service: 09/19/20 Primary Care Provider: Dr. Allen Chief Complaint: Respiratory failure from fajardo virus Patient has no complain. Patient oxygen requirement seems to fluctuate. At one time he would tolerate oxygen by nasal cannula, and at that time he desaturate with 4 L of nasal cannula. Repeat chest x-ray today reviewed and showing no significant change. Physical Examination - Vital Signs Temperature: 97.1 F Blood Pressure: 110/65 Pulse: 62 Respirations: 22 Pulse Ox (%): 95 - Physical Exam General: Alert, In no apparent distress HEENT: Mucous membr. moist/pink Neck: JVD not distended Respiratory: Normal air movement, Crackles/rales Cardiovascular: No edema, Regular rate/rhythm, Normal S1 S2 Gastrointestinal: Soft and benign, Non-distended Musculoskeletal: No swelling Integumentary: No rashes Neurological: Other (Nonfocal) Assessment And Plan - Current Problems (Diagnosis) (1) Acute respiratory failure due to severe acute respiratory syndrome coronavirus 2 (SARS-CoV-2) infection Current Visit: Yes Status: Acute (2) Sepsis Current Visit: Yes Status: Acute (3) Hyperglycemia Current Visit: Yes Status: Acute (4) Seizure disorder Current Visit: Yes Status: Acute - Plan Patient improving clinically. Continue to wean down oxygen. Continue IV steroid Pulmonary is following. Lantus insulin, insulin sliding in Januvia for glucose management. Continue Keppra.
--- NOTE | 2020-09-19 14:17 | P.PN ---
Subjective Date of Service: 09/19/20 Primary Care Provider: Dr. Allen Chief Complaint: Respiratory failure from fajardo virus Clinically improving still requiring high concentrations of oxygen is ferritin levels have been increasing Review of Systems is unable to be obtained Physical Examination - Vital Signs Temperature: 97 F Blood Pressure: 101/62 Pulse: 64 Respirations: 20 Pulse Ox (%): 92 - Physical Exam General: Alert, Mild distress Respiratory: Crackles/rales Assessment & Plan - Problems (Diagnosis) (1) Acute respiratory failure due to severe acute respiratory syndrome coron avirus 2 (SARS-CoV-2) infection Current Visit: Yes Status: Acute Plan: Respiratory failure patient is improving will try to wean to nasal cannula oxygen ferritin levels of also increased will give higher doses of steroids while in the hospital white count is declined chest x-ray maybe slight worsening I have increased the dose of Solu-Medrol I have also added levofloxacin he is at risk for hospital-acquired infection blood sugars elevated possible discharge tomorrow set up home O2
[2020-09-19] MEDS: levoFLOXacin 500 MG TAB PO SCH (16:32)
[2020-09-20] MEDS: METHYLPREDNISOLONE 40 MG INJ IV SCH ×3 (00:51→21:07)
[2020-09-20] MEDS: INSULIN -REGULAR HUMAN 50 UNIT/0.5 ML ML SQ SCH ×4 (07:30→21:50)
--- NOTE | 2020-09-20 07:50 | RAD REPORT ---
EXAM DESCRIPTION: RAD - Chest Single View - 09/20/2020 5:26 am CLINICAL HISTORY: pneumonia COMPARISON: September 19 TECHNIQUE: AP portable chest image was obtained 09/20/2020 5:26 am . FINDINGS: Lung volumes are low. Bilateral airspace opacification present, worse on the left. Minimal improvement on the left is suspected. Overall pattern is not substantially different. Heart and vasc ulature are normal. No measurable pleural effusion and no pneumothorax. No acute bony abnormality see n. No acute aortic findings suspected. IMPRESSION: Bilateral pneumonia pattern showing little or no improvement from prior day imaging. No progressive process seen.
[2020-09-20] MEDS: ASCORBIC ACID 500 MG TABLET PO SCH ×3 (08:53→21:06)
[2020-09-20] MEDS: CITALOPRAM 10 MG TABLET PO SCH (08:53)
[2020-09-20] MEDS: VITAMIN D 1000 UNIT TAB PO SCH (08:53)
[2020-09-20] MEDS: FLUCONAZOLE 100 MG TAB PO SCH (08:54)
[2020-09-20] MEDS: levETIRAcetam 500 MG TAB PO SCH ×2 (08:54→21:07)
[2020-09-20] MEDS: ASPIRIN EC 81 MG TAB PO SCH (08:54)
[2020-09-20] MEDS: levoFLOXacin 500 MG TAB PO SCH (08:54)
[2020-09-20] MEDS: APIXABAN 5 MG TABLET PO SCH ×2 (08:54→21:06)
[2020-09-20] MEDS: BUSPIRONE HCL 5 MG TABLET PO SCH ×3 (08:54→21:06)
[2020-09-20] MEDS: ZINC SULFATE 220 MG CAP PO SCH (08:54)
[2020-09-20] MEDS: INSULIN GLARGINE 100 UNITS/ML SQ SCH ×2 (08:56→21:50)
[2020-09-20] MEDS: SITAGLIPTIN PHOS 100 MG TAB PO SCH (08:58)
--- NOTE | 2020-09-20 10:37 | P.PN ---
Subjective Date of Service: 09/20/20 Primary Care Provider: Dr. Allen Chief Complaint: Respiratory failure from fajardo virus No change still requiring high concentrations of oxygen he did desat last night was put back on CPAP Review of Systems is unable to be obtained Physical Examination - Vital Signs Temperature: 96.8 F Blood Pressure: 134/68 Pulse: 54 Respirations: 26 Pulse Ox (%): 94 Assessment & Plan - Problems (Diagnosis) (1) Acute respiratory failure due to severe acute respiratory syndrome coronavirus 2 (SARS-CoV-2) infection Current Visit: Yes Status: Acute Plan: Respiratory failure from fajardo virus chest x-ray shows extensive damage with no change prognosis is poor LTAC Consul reduce dose of steroids
--- NOTE | 2020-09-20 11:58 | P.PN ---
Subjective Date of Service: 09/20/20 Primary Care Provider: Dr. Allen Chief Complaint: Respiratory failure from fajardo virus Patient has no complain. His oxygen requirement fluctuates. He is currently on high-flow oxygen. Physical Examination - Vital Signs Temperature: 96.8 F Blood Pressure: 134/68 Pulse: 54 Respirations: 26 Pulse Ox (%): 94 - Physical Exam General: In no apparent distress Respiratory: Normal air movement, Crackles/rales Cardiovascular: No edema, Regular rate/rhythm, Normal S1 S2 Gastrointestinal: Soft and benign, Non-distended Musculoskeletal: No swelling Integumentary: No rashes Neurological: Other (Nonfocal) Assessment And Plan - Current Problems (Diagnosis) (1) Acute respiratory failure due to severe acute respiratory syndrome coronavirus 2 (SARS-CoV-2) infection Current Visit: Yes Status: Acute (2) Sepsis Current Visit: Yes Status: Acute (3) Hyperglycemia Current Visit: Yes Status: Acute (4) Seizure disorder Current Visit: Yes Status: Acute - Plan Continue to wean down oxygen. Continue IV steroid Pulmonary is following. [facility]us insulin[facility] Continue Keppra. Incentive spirometer.
[2020-09-21] MEDS: INSULIN -REGULAR HUMAN 50 UNIT/0.5 ML ML SQ SCH ×4 (07:30→21:00)
[2020-09-21] MEDS: INSULIN GLARGINE 100 UNITS/ML SQ SCH ×2 (08:30→21:00)
[2020-09-21] MEDS: APIXABAN 5 MG TABLET PO SCH ×2 (08:42→21:21)
[2020-09-21] MEDS: FLUCONAZOLE 100 MG TAB PO SCH (08:42)
[2020-09-21] MEDS: ZINC SULFATE 220 MG CAP PO SCH (08:42)
[2020-09-21] MEDS: ASPIRIN EC 81 MG TAB PO SCH (08:42)
[2020-09-21] MEDS: SITAGLIPTIN PHOS 100 MG TAB PO SCH (08:42)
[2020-09-21] MEDS: levoFLOXacin 500 MG TAB PO SCH (08:43)
[2020-09-21] MEDS: CITALOPRAM 10 MG TABLET PO SCH (08:43)
[2020-09-21] MEDS: levETIRAcetam 500 MG TAB PO SCH ×2 (08:43→21:20)
[2020-09-21] MEDS: ASCORBIC ACID 500 MG TABLET PO SCH ×3 (08:43→21:20)
[2020-09-21] MEDS: BUSPIRONE HCL 5 MG TABLET PO SCH ×3 (08:44→21:20)
[2020-09-21] MEDS: METHYLPREDNISOLONE 40 MG INJ IV SCH ×2 (08:44→17:17)
[2020-09-21] MEDS: VITAMIN D 1000 UNIT TAB PO SCH (08:44)
--- NOTE | 2020-09-21 09:38 | P.PN ---
Subjective Date of Service: 09/21/20 Primary Care Provider: Dr. Allen Chief Complaint: Respiratory failure from fajardo virus Patient has no complain. Patient is maintained on high-flow oxygen. Physical Examination - Vital Signs Temperature: 98.3 F Blood Pressure: 114/73 Pulse: 64 Respirations: 21 Pulse Ox (%): 94 - Physical Exam General: Alert, In no apparent distress Respiratory: Normal air movement Cardiovascular: No edema, Regular rate/rhythm Gastrointestinal: Soft and benign, No tenderness Musculoskeletal: No swelling Integumentary: No rashes Neurological: Normal strength at 5/5 x4 extr Assessment And Plan - Current Problems (Diagnosis) (1) Acute respiratory failure due to severe acute respiratory syndrome coronavirus 2 (SARS-CoV-2) infection Current Visit: Yes Status: Acute (2) Sepsis Current Visit: Yes Status: Acute (3) Hyperglycemia Current Visit: Yes Status: Acute (4) Seizure disorder Current Visit: Yes Status: Acute - Plan Continue to wean down oxygen. Continue IV steroid Pulmonary is following. Continue Keppra. Incentive spirometry.
[2020-09-21] MEDS ORDERED: METHYLPREDNISOLONE 125 MG INJ IV ONE (11:49)
--- NOTE | 2020-09-21 11:52 | P.PN ---
Subjective Date of Service: 09/22/20 Primary Care Provider: Dr. Allen Chief Complaint: Respiratory failure from fajardo virus No change still requiring considerable amount of oxygen is currently on CPAP Review of Systems is unable to be obtained Physical Examination - Vital Signs Temperature: 98.3 F Blood Pressure: 100/61 Pulse: 78 Respirations: 20 Pulse Ox (%): 94 Assessment & Plan - Problems (Diagnosis) (1) Acute respiratory failure due to severe acute respiratory syndrome coronavirus 2 (SARS-CoV-2) infection Current Visit: Yes Status: Acute Plan: Respiratory failure chest x-ray shows significant opacification will increase the dose of Solu-Medrol white count is the same prognosis very poor evaluated for LTAC
[2020-09-21] MEDS ORDERED: INSULIN GLARGINE 100 UNITS/ML SQ ONE (21:23)
[2020-09-22] MEDS: METHYLPREDNISOLONE 40 MG INJ IV SCH (00:41)
[2020-09-22 05:52] LABS: Ferritin 475.4 ng/mL (26-388)
[2020-09-22 06:00] LABS: C-Reactive Protein < 2.90 mg/L (<3.00)
[2020-09-22] MEDS: INSULIN -REGULAR HUMAN 50 UNIT/0.5 ML ML SQ SCH ×4 (07:30→20:17)
[2020-09-22] MEDS: SITAGLIPTIN PHOS 100 MG TAB PO SCH (08:15)
[2020-09-22] MEDS: levETIRAcetam 500 MG TAB PO SCH ×2 (08:15→20:01)
[2020-09-22] MEDS: ZINC SULFATE 220 MG CAP PO SCH (08:15)
[2020-09-22] MEDS: FLUCONAZOLE 100 MG TAB PO SCH (08:15)
[2020-09-22] MEDS: levoFLOXacin 500 MG TAB PO SCH (08:15)
[2020-09-22] MEDS: VITAMIN D 1000 UNIT TAB PO SCH (08:15)
[2020-09-22] MEDS: METHYLPREDNISOLONE 125 MG INJ IV SCH ×2 (08:16→16:46)
[2020-09-22] MEDS: APIXABAN 5 MG TABLET PO SCH ×2 (08:16→20:01)
[2020-09-22] MEDS: ASPIRIN EC 81 MG TAB PO SCH (08:16)
[2020-09-22] MEDS: BUSPIRONE HCL 5 MG TABLET PO SCH ×3 (08:16→20:01)
[2020-09-22] MEDS: ASCORBIC ACID 500 MG TABLET PO SCH ×3 (08:16→20:01)
[2020-09-22] MEDS: CITALOPRAM 10 MG TABLET PO SCH (08:16)
[2020-09-22] MEDS: INSULIN GLARGINE 100 UNITS/ML SQ SCH ×2 (08:23→20:17)
[2020-09-22] MEDS ORDERED: METHYLPREDNISOLONE 40 MG INJ IV SCH (09:00)
--- NOTE | 2020-09-22 10:18 | P.PN ---
Subjective Date of Service: 09/22/20 Primary Care Provider: Dr. Allen Chief Complaint: Respiratory failure from fajardo virus Patient has no complain. Patient is maintained on high-flow oxygen. Difficult to wean off high-flow. Physical Examination - Vital Signs Temperature: 97.3 F Blood Pressure: 115/72 Pulse: 68 Respirations: 24 Pulse Ox (%): 93 - Physical Exam General: Alert, In no apparent distress HEENT: Mucous membr. moist/pink Respiratory: Normal air movement Cardiovascular: No edema, Regular rate/rhythm Gastrointestinal: Soft and benign, Non-distended Musculoskeletal: No swelling Integumentary: No rashes Neurological: Other (Nonfocal) Assessment And Plan - Current Problems (Diagnosis) (1) Acute respiratory failure due to severe acute respiratory syndrome coronavirus 2 (SARS-CoV-2) infection Current Visit: Yes Status: Acute (2) Sepsis Current Visit: Yes Status: Acute (3) Hyperglycemia Current Visit: Yes Status: Acute (4) Seizure disorder Current Visit: Yes Status: Acute - Plan Continue to wean down oxygen as tolerated. Continue IV steroid Pulmonary is following. Continue Keppra. Incentive spirometry.
[2020-09-23 04:23] LABS: C-Reactive Protein < 2.90 mg/L (<3.00)
[2020-09-23] MEDS: INSULIN -REGULAR HUMAN 50 UNIT/0.5 ML ML SQ SCH (07:30)
[2020-09-23] MEDS: CITALOPRAM 10 MG TABLET PO SCH (08:34)
[2020-09-23] MEDS: APIXABAN 5 MG TABLET PO SCH (08:34)
[2020-09-23] MEDS: levoFLOXacin 500 MG TAB PO SCH (08:34)
[2020-09-23] MEDS: BUSPIRONE HCL 5 MG TABLET PO SCH (08:35)
[2020-09-23] MEDS: VITAMIN D 1000 UNIT TAB PO SCH (08:35)
[2020-09-23] MEDS: FLUCONAZOLE 100 MG TAB PO SCH (08:35)
[2020-09-23] MEDS: ASCORBIC ACID 500 MG TABLET PO SCH (08:35)
[2020-09-23] MEDS: ASPIRIN EC 81 MG TAB PO SCH (08:35)
[2020-09-23] MEDS: levETIRAcetam 500 MG TAB PO SCH (08:35)
[2020-09-23] MEDS: ZINC SULFATE 220 MG CAP PO SCH (08:35)
[2020-09-23] MEDS: METHYLPREDNISOLONE 125 MG INJ IV SCH ×2 (08:36)
[2020-09-23] MEDS: INSULIN GLARGINE 100 UNITS/ML SQ SCH (08:36)
[2020-09-23] MEDS: SITAGLIPTIN PHOS 100 MG TAB PO SCH (08:37)
--- NOTE | 2020-09-23 08:53 | P.DS ---
Admission Date: 09/11/20 Discharge Date: 09/23/20 Primary Care Provider: Dr. Allen Disposition: DC HOME/HOME HEALTH CARE Discharge Condition: FAIR Reason for Admission: Respiratory failure from fajardo virus - Problems (1) Acute respiratory failure due to severe acute respiratory syndrome coronavirus 2 (SARS-CoV-2) infection Status: Acute (2) Sepsis Status: Acute (3) Hyperglycemia Status: Acute (4) Seizure disorder Status: Acute Brief History of Present Illness: 35-year-old gentleman who is mentally challenged with a history of seizure disorder and CVA was brought to the emergency department due to respiratory distress. Patient was diagnosed with COVID 19 on September 03. According to the mother patient became progressively developed respiratory distress on the day of admission. His oxygen saturation was 33% on room air and respiratory rate of 60. Patient was immediately placed on a high-flow oxygen would improve her oxygen levels about 90% and his respiratory rate. Chest x-ray demonstrated diffuse bilateral opacities. Patient also had leukocytosis and met criteria for sepsis. He was admitted for further management of COVID pneumonia with sepsis and respiratory failure. Hospital Course: Patient admitted and treated with high-flow oxygen, IV steroid, placed on prophylactic anticoagulation with Eliquis. He was seen in consultation by pulmonary-Dr. Thomas. He was also treated for possible secondary bacterial infection with IV antibiotics-Rocephin and Zithromax and later scale down to oral Levaquin. Patient clinical condition gradually improved. Ability to wean him off high-flow oxygen was protracted. Most of the inflammatory markers monitored improved to normal. He was alternated between CPAP and high-flow oxygen. He was eventually weaned off high-flow oxygen to oxygen by nasal cannula. He has tolerated 4 L of oxygen by nasal cannula over the past 48 hours and deemed clinically stable for discharge. The patient is discharged with a tapering dose of prednisone and also to continue Eliquis prophylaxis. He will follow with Dr. Thomas within 1 week. Vital Signs/Physical Exam: Temp Pulse Resp BP Pulse Ox 97.6 F 65 20 120/71 89 L 09/23/20 04:00 09/23/20 04:00 09/23/20 04:00 09/23/20 04:00 09/23/20 04:00 General: Alert, In no apparent distress Respiratory: Crackles/rales (Mild bibasilar crackles) Cardiovascular: No edema, Regular rate/rhythm, Normal S1 S2 Gastrointestinal: Normal bowel sounds, Soft and benign, Non-distended Musculoskeletal: No swelling Integumentary: No rashes Neurological: Normal strength at 5/5 x4 extr Laboratory Data at Discharge: WBC 12.2 K/uL (4.3-10.9) H 09/19/20 04:30 Hgb 14.7 g/dL (13.6-17.9) 09/19/20 04:30 Hct 45.3 % (39.6-49.0) 09/19/20 04:30 Plt Count 271 K/uL (152-406) D 09/19/20 04:30 PT 15.1 SECONDS (9.5-12.5) H 09/11/20 04:03 INR 1.29 09/11/20 04:03 Sodium 133 mmol/L (136-145) L 09/19/20 04:30 Potassium 4.7 mmol/L (3.5-5.1) 09/19/20 04:30 BUN 21 mg/dL (7-18) H 09/19/20 04:30 Creatinine 0.81 mg/dL (0.55-1.3) 09/19/20 04:30 Glucose 208 mg/dL (74-106) H 09/19/20 04:30 Magnesium 2.4 mg/dL (1.8-2.4) 09/17/20 04:22 Total Bilirubin 0.8 mg/dL (0.2-1.0) 09/11/20 03:57 AST 72 U/L (15-37) H 09/11/20 03:57 ALT 79 U/L (12-78) H 09/11/20 03:57 Alkaline Phosphatase 45 U/L (45-117) 09/11/20 03:57 Troponin I 0.54 ng/mL (0.0-0.045) H* 09/11/20 15:50 Home Medications: Buspirone HCl [Buspar*] 5 mg PO TID 12/25/15 Citalopram [Celexa*] 20 mg PO DAILY 12/25/15 Lurasidone HCl [Latuda] 1 tab PO BEDTIME 03/01/18 Perampanel [Fycompa] 2 mg PO SEECOM 03/01/18 Apixaban [Eliquis] 5 mg PO BID #60 tablet 09/23/20 Ascorbic Acid [Vitamin C*] 500 mg PO TID #90 tablet 09/23/20 Cholecalciferol (Vitamin D3) [Vitamin D 1000 Iu Tab*] 2,000 unit PO DAILY #60 tab 09/23/20 Insulin Glargine Human [Lantus*] 40 units SQ BID #10 ml 09/23/20 Sitagliptin Phosphate [Januvia*] 100 mg PO DAILY #30 tab 09/23/20 Zinc Sulfate [Zinc Sulfate*] 220 mg PO DAILY #30 cap 09/23/20 levETIRAcetam [Keppra*] 1,500 mg PO BID #180 tab 09/23/20 levoFLOXacin [Levaquin*] 500 mg PO DAILY #2 tab 09/23/20 predniSONE [Deltasone*] 20 mg PO BID #42 tab 09/23/20 New Medications: predniSONE [Deltasone*] 20 mg PO BID #42 tab Apixaban [Eliquis] 5 mg PO BID #60 tablet Sitagliptin Phosphate [Januvia*] 100 mg PO DAILY #30 tab levETIRAcetam [Keppra*] 1,500 mg PO BID #180 tab Insulin Glargine Human [Lantus*] 40 units SQ BID #10 ml levoFLOXacin [Levaquin*] 500 mg PO DAILY #2 tab Ascorbic Acid [Vitamin C*] 500 mg PO TID #90 tablet Cholecalciferol (Vitamin D3) [Vitamin D 1000 Iu Tab*] 2,000 unit PO DAILY #60 tab Zinc Sulfate [Zinc Sulfate*] 220 mg PO DAILY #30 cap Diet: ADA Activity: Ad obdulio Followup: Deric Thomas MD [ACTIVE - CAN ADMIT] - 1 Week (Call to make an appointment. ) Time spent managing pt's care (in minutes): 42
[2020-09-23 08:55] VITALS: BP 116/71; TEMP 97.4
[2020-09-23 11:14] VITALS: O2SAT 92
== END 2020-09-23 11:17 | disposition home or self-care (01) | DRG 871 ==
LOC: ER 03:34 → ERHOLD 05:31 → 3RD-ICU 09-12 16:53 → 4TH 09-22 13:10
PROVIDERS: ADMIT Hospitalist; ATTEND Internal Medicine
DX: A41.89 Other specified sepsis (principal); U07.1 COVID-19; J12.89 Other viral pneumonia; J80 Acute respiratory distress syndrome; F41.9 Anxiety disorder, unspecified; R73.9 Hyperglycemia, unspecified; Z86.73 Personal history of transient ischemic attack (TIA), and cerebral infarction without residual deficits; Z90.49 Acquired absence of other specified parts of digestive tract; Z79.899 Other long term (current) drug therapy; Z79.01 Long term (current) use of anticoagulants; Z79.4 Long term (current) use of insulin; Z79.52 Long term (current) use of systemic steroids
CPT/HCPCS: 36415; 71045; 80048; 80076; 81003; 82728; 82805; 82947; 83036; 83605; 83735; 83880; 84145; 84484; 85025; 85610; 86140; 87040; 93005; 93306; 94002; 94003; 94010; 94660; 94760; 94762; 96365; 96372; 96375; 99285; J0456; J0696; J1100; J1815; J2920; J2930; J7030; J7040; J7050

== ENCOUNTER 2021-03-16 18:29 | Emergency (ER) | payer OTHER ==
[2021-03-16] MEDS ORDERED: LORazepam 2 MG/ML VIAL ONE (18:52)
[2021-03-16 19:16] LABS: Absolute Lymphocytes (CBC) 1.7 K/uL (0.7-4.9); Basophils % 0.5 % (0-1.3); Hematocrit 39.6 % (39.6-49.0); Lymphocytes % 27.1 % (15.3-44.8); MPV 9.2 fL (7.6-11.3); RBC Red Blood Cell Count 4.76 M/uL (4.33-5.43)
[2021-03-16 19:33] LABS: BUN Blood Urea Nitrogen 12 mg/dL (7-18); Bicarbonate 25 mmol/L (21-32); Glucose Level 89 mg/dL (74-106); Potassium 3.3 mmol/L (3.5-5.1); Sodium Level 145 mmol/L (136-145)
[2021-03-16] MEDS ORDERED: NA CHLORIDE 0.9% 100 ML ONE (20:18)
[2021-03-16] MEDS ORDERED: LEVETIRACETAM 500 MG/5 ML VIAL IV ONE (20:18)
[2021-03-16] MEDS ORDERED: NA CHLORIDE 0.9% 1,000 ML ONE (20:18)
--- NOTE | 2021-03-16 20:57 | ER ---
Nurse's Notes [facility] Name: Shan Faye Age: 35 yrs Sex: Male : 1985 Arrival Date: 03/16/2021 Time: 18:30 Bed 6 Private MD: Diagnosis: Epilepsy and recurrent seizures Presentation: 03/16 18:41 Chief complaint: EMS states: WITNESSED SZ AT WORK. Coronavirus screen: At this time, bp the client does not indicate any symptoms associated with coronavirus-19. Ebola Screen: No symptoms or risks identified at this time. Initial Sepsis Screen: Does the patient meet any 2 criteria? No. Patient's initial sepsis screen is negative. Does the patient have a suspected source of infection? No. Patient's initial sepsis screen is negative. Risk Assessment: Do you want to hurt yourself or someone else? Patient reports no desire to harm self or others. Onset of symptoms was March 16, 2021 at 18:00. Care prior to arrival: IV initiated. 20 GA, in the right antecubital area. 18:41 Method Of Arrival: EMS: [facility] bp 18:41 Acuity: PAULINE 3 bp Triage Assessment: 18:44 General: Appears distressed, comfortable, Behavior is cooperative, flat. Pain: Denies bp pain. EENT: No deficits noted. Neuro: Seizure activity reported prior to arrival. Type of seizure: tonic-clonic seizure. Patient is post-ictal at this time. Cardiovascular: No deficits noted. Respiratory: No deficits noted. GI: No signs and/or symptoms were reported involving the gastrointestinal system. : No signs and/or symptoms were reported regarding the genitourinary system. Derm: No deficits noted. Musculoskeletal: No deficits noted. Historical: - Allergies: 18:44 No Known Allergies; bp - Home Meds: 18:44 Latuda 40 mg Oral tab 1 tab once daily [Active]; levetiracetam 750 mg Oral tab 2 tabs bp twice a day [Active]; Fycompa 8 mg Oral tab 1 tab once daily [Active]; citalopram 20 mg tab 1 tab once daily [Active]; buspirone 7.5 mg Oral tab three times a day [Active]; - PMHx: 18:44 Anxiety; BRAIN DISORDER, ONE SIDE MORE DEVELOPED THAN THE OTHER; CVA (1993); bp Depression; mental retardation; Seizures; - Immunization history:: Adult Immunizations unknown. - Social history:: Smoking status: unknown. Screenin:45 Abuse screen: Denies threats or abuse. Denies injuries from another. Nutritional bp screening: No deficits noted. Tuberculosis screening: No symptoms or risk factors identified. Fall Risk None identified. Assessment: 18:46 General: SEE TRIAGE NOTE. bp Vital Signs: 18:46 BP 128 / 85; Pulse 101; Resp 34; Temp 97.8; Pulse Ox 94% on R/A; bp 19:12 BP 125 / 86; Pulse 86; Resp 20; Temp 98.5; Pulse Ox 99% ; rr5 Benjamín Coma Score: 18:44 Eye Response: spontaneous(4). Verbal Response: none(1). Motor Response: obeys bp commands(6). Total: 11. ED Course: 18:30 Patient arrived in ED. am2 18:41 Home Lopez, RN is Primary Nurse. bp 18:43 Triage completed. bp 18:45 Arm band placed on. bp 18:45 Patient has correct armband on for positive identification. Bed in low position. Call bp light in reach. Side rails up X2. 18:45 Maintain EMS IV. Dressing intact. Good blood return noted. Site clean \T\ dry. Gauge \T\ bp site: 20 GAUGE R AC. 18:48 Juan M Miramontes, BRANDON is PHCP. pm1 18:48 Jose Eduardo Momin MD is Attending Physician. pm1 18:49 Initial lab(s) drawn, by tx, sent to lab. EKG done, by ED staff, reviewed by Jose Eduardo Momin MD. 18:50 CBC with Diff Sent. 5 18:50 Basic Metabolic Panel Sent. 5 19:01 Adult w/ patient. Seizure precautions initiated. Warm blanket given. wire splicer mh5 on. Pulse ox on. NIBP on. 19:02 Maintain EMS IV. [facility] 19:21 Primary Nurse role handed off by Home Lopez, PILLO eb 19:55 Tristan Dexter, PILLO is Primary Nurse. rr5 Administered Medications: 18:35 Drug: Ativan (LORazepam) 2 mg Route: IVP; Site: right antecubital; ae4 19:01 Follow up: Response: No adverse reaction; Marked relief of symptoms bp 20:02 Drug: Keppra (levETIRAcetam) 1000 mg Route: IV; Rate: calculated rate; Site: right rr5 antecubital; 20:02 Drug: NS 0.9% 1000 ml Route: IV; Rate: 1000 ml; Site: right antecubital; rr5 Outcome: 20:57 Discharge ordered by pm1 21:15 Patient left the ED. eb Signatures: Juan M Miramontes NP LIGHTING DESIGNER pm1 Paloma Mckinley [facility] Alee Dubose Home Rodriguez, RN RN Janey Mckinney Tristan Dexter, RN RN rr5 Jai Kiser RN RN ae4
--- NOTE | 2021-03-16 20:58 | EDPHYS ---
Physician Documentation [facility] Name: Shan Faye Age: 35 yrs Sex: Male : 1985 Arrival Date: 03/16/2021 Time: 18:30 Bed 6 Private MD: ED Physician Jose Eduardo Momin HPI: 03/16 18:59 This 35 yrs old Male presents to ER via EMS with complaints of Seizure. pm1 18:59 The patient presents after having a single isolated seizure, the episode(s) was pm1 witnessed, by co-worker(s). Character of seizure(s): Motor activity: generalized. Seizure onset: just prior to arrival. Context: the seizure(s) was witnessed, by co-worker(s), occurred at work, occurred while the patient was working, Contributing factors: sleep deprivation. Seizure Hx: Last seizure: The patient's last seizure was approximately 3 month(s) ago, Seizure medications: Keppra. Associated injury: The patient did not suffer any apparent associated injury. Current symptoms: sleepiness. The patient has experienced similar episodes in the past, multiple times. Historical: - Allergies: 18:44 No Known Allergies; bp - Home Meds: 18:44 Latuda 40 mg Oral tab 1 tab once daily [Active]; levetiracetam 750 mg Oral tab 2 tabs bp twice a day [Active]; Fycompa 8 mg Oral tab 1 tab once daily [Active]; citalopram 20 mg tab 1 tab once daily [Active]; buspirone 7.5 mg Oral tab three times a day [Active]; - PMHx: 18:44 Anxiety; BRAIN DISORDER, ONE SIDE MORE DEVELOPED THAN THE OTHER; CVA (1993); bp Depression; mental retardation; Seizures; - Immunization history:: Adult Immunizations unknown. - Social history:: Smoking status: unknown. ROS: 18:59 Constitutional: Negative for fever, chills, and weight loss, Eyes: Negative for injury, pm1 pain, redness, and discharge, ENT: Negative for injury, pain, and discharge, Neck: Negative for injury, pain, and swelling, Cardiovascular: Negative for chest pain, palpitations, and edema, Respiratory: Negative for shortness of breath, cough, wheezing, and pleuritic chest pain, Abdomen/GI: Negative for abdominal pain, nausea, vomiting, diarrhea, and constipation, Back: Negative for injury and pain, MS/Extremity: Negative for injury and deformity, Skin: Negative for injury, rash, and discoloration. 18:59 Neuro: Positive for seizure activity, Negative for headache, numbness, weakness. Exam: 18:59 Constitutional: This is a well developed, well nourished patient who is awake, alert, pm1 and in no acute distress. Head/Face: Normocephalic, atraumatic. Eyes: Pupils equal round and reactive to light, extra-ocular motions intact. Lids and lashes normal. Conjunctiva and sclera are non-icteric and not injected. Cornea within normal limits. Periorbital areas with no swelling, redness, or edema. ENT: Nares patent. No nasal discharge, no septal abnormalities noted. Tympanic membranes are normal and external auditory canals are clear. Oropharynx with no redness, swelling, or masses, exudates, or evidence of obstruction, uvula midline. Mucous membranes moist. Neck: Trachea midline, no thyromegaly or masses palpated, and no cervical lymphadenopathy. Supple, full range of motion without nuchal rigidity, or vertebral point tenderness. No Meningismus. 18:59 Back: No spinal tenderness. No costovertebral tenderness. Full range of motion. Skin: Warm, dry with normal turgor. Normal color with no rashes, no lesions, and no evidence of cellulitis. MS/ Extremity: Pulses equal, no cyanosis. Neurovascular intact. Full, normal range of motion. 18:59 Cardiovascular: Rate: normal, Rhythm: regular, Pulses: no pulse deficits are appreciated. 18:59 Respiratory: Exam negative for acute changes, respiratory distress, shortness of breath, Breath sounds: are clear throughout. 18:59 Abdomen/GI: Inspection: abdomen appears normal, Palpation: abdomen is soft and non-tender, in all quadrants. 18:59 Neuro: Exam negative for acute changes, Orientation: is normal, Mentation: is normal, Motor: is normal, moves all fours. Vital Signs: 18:46 BP 128 / 85; Pulse 101; Resp 34; Temp 97.8; Pulse Ox 94% on R/A; bp 19:12 BP 125 / 86; Pulse 86; Resp 20; Temp 98.5; Pulse Ox 99% ; rr5 Fleming Coma Score: 18:44 Eye Response: spontaneous(4). Verbal Response: none(1). Motor Response: obeys bp commands(6). Total: 11. MDM: 19:09 Patient medically screened. pm1 20:55 Data reviewed: vital signs. Data interpreted: Pulse oximetry: on room air is 99 %. pm1 Interpretation: normal. Counseling: I had a detailed discussion with the patient and/or guardian regarding: the historical points, exam findings, and any diagnostic results supporting the discharge/admit diagnosis, lab results, the need for outpatient follow up, to return to the emergency department if symptoms worsen or persist or if there are any questions or concerns that arise at home. 03/16 18:32 Order name: CBC with Diff; Complete Time: 19:33 rn 03/16 18:32 Order name: Basic Metabolic Panel; Complete Time: 19:33 rn 03/16 19:09 Order name: Glucose, Ancillary Testing; Complete Time: 19:33 EDMS 03/16 18:32 Order name: IV Start; Complete Time: 18:46 rn 03/16 18:32 Order name: EKG; Complete Time: 18:33 rn 03/16 18:32 Order name: EKG - Nurse/Tech; Complete Time: 18:50 rn 03/16 18:32 Order name: Glucose Level; Complete Time: 18:50 rn Administered Medications: 18:35 Drug: Ativan (LORazepam) 2 mg Route: IVP; Site: right antecubital; ae4 19:01 Follow up: Response: No adverse reaction; Marked relief of symptoms bp 20:02 Drug: Keppra (levETIRAcetam) 1000 mg Route: IV; Rate: calculated rate; Site: right rr5 antecubital; 20:02 Drug: NS 0.9% 1000 ml Route: IV; Rate: 1000 ml; Site: right antecubital; rr5 Disposition: 03/16/21 20:57 Discharged to Home. Impression: Epilepsy and recurrent seizures. - Condition is Stable. - Discharge Instructions: Seizure, Adult, [id number]. - Work release form, Medication Reconciliation Form, Thank You Letter, Antibiotic Education, Prescription Opioid Use form. - Follow up: Emergency Department; When: As needed; Reason: Worsening of condition. Follow up: Private Physician; When: 2 - 3 days; Reason: Recheck today's complaints, Continuance of care, Re-evaluation by your physician. - Problem is new. - Symptoms have improved. Addendum: 03/18/2021 19:24 Co-signature as Attending Physician, Jose Eduardo Momin MD. r n Signatures: Dispatcher [employer] EDJose Eduardo Smith MD MD rn Marinas, Patrick, FOREST ECOLOGY PROFESSOR FOREST ECOLOGY PROFESSOR pm1 Home Lopez, RN RN Janey Lauren Raymond RN RN rr5 Jai Kiser RN RN ae4 Corrections: (The following items were deleted from the chart) 03/16 21:15 20:57 03/16/2021 20:57 Discharged to Home. Impression: Epilepsy and recurrent seizures. eb Condition is Stable. Forms are Medication Reconciliation Form, Thank You Letter, Antibiotic Education, Prescription Opioid Use. Follow up: Emergency Department; When: As needed; Reason: Worsening of condition. Follow up: Private Physician; When: 2 - 3 days; Reason: Recheck today's complaints, Continuance of care, Re-evaluation by your physician. Problem is new. Symptoms have improved. pm1
[2021-03-16 21:25] VITALS: BP 125/86; TEMP 98.5; O2SAT 99
== END 2021-03-16 21:15 | disposition home or self-care (01) ==
LOC: ER 18:29
DX: G40.802 Other epilepsy, not intractable, without status epilepticus (principal)
CPT/HCPCS: 93005; 85025; 80048; 36415; 82947; 96375; 96374; 99284; J1953; J7030

== ENCOUNTER 2021-04-06 19:40 | Observation (INO) | payer OTHER ==
--- OUTSIDE RECORDS SUMMARY | 2021-04-06 19:46 | XMS REPORT | Continuity of Care Document ---
:1985 Author Organization [facility] t Address [address] [place] [address] Care Team Providers Name Role Phone Unavailable Unavailable Unavailable Problems This patient has no known problems. Allergies, Adverse Reactions, Alerts This patient has no known allergies or adverse reactions. Medications This patient has no known medications. Procedures This patient has no known procedures. Encounters Start End Encounter Admission Attending Care Care Encounter Source Date/Time Date/Time Type Type Clinicians Facility Department ID 2020-10-15 2020-10-15 Outpatient [facility] [id number] [facility] 00:[facility]:00 00:00:00 [facility] ent Clinics 2020-09-25 2020-09-25 Outpatient [facility] [id number] [facility] 00:[facility] 00:[facility]:00 [facility] ent Clinics Results This patient has no known results.
--- NOTE | 2021-04-06 20:26 | RAD REPORT ---
EXAM DESCRIPTION: CT - Head Brain Wo Cont - 04/06/2021 8:19 pm CLINICAL HISTORY: SEIZURE COMPARISON: Head Brain Wo Cont dated 02/07/2018; HEAD BRAIN W O CONTRAST dated 04/12/2015 TECHNIQUE: Axial 5 mm thick images of the head were obtained without IV contrast. All CT scans are performed using dose optimization technique as appropriate and may include automated exposure control or mA/KV adjustment according to patient size. FINDINGS: No intracranial hemorrhage, mass, edema or shift of mid-line structures. No acute infarcti on changes seen. No abnormal extra-axial fluid collections. 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 Ventricles are stable in size. Significant cerebellum volume loss has not changed. Patient has a small posterior cranial fossa. Mastoid air cells are clear. There is near complete opacification of the left maxillary sinus without fluid level seen. No acute bony findings. IMPRESSION: Negative non-contrast CT head examination for acute intracranial finding. Intracranial structures are stable from 2018. Near complete opacification of the left maxillary sinus.
[2021-04-06 20:49] LABS: Absolute Lymphocytes (CBC) 2.8 K/uL (0.7-4.9); Basophils % 0.5 % (0-1.3); Hematocrit 38.5 % (39.6-49.0); Lymphocytes % 36.2 % (15.3-44.8); MPV 8.7 fL (7.6-11.3); RBC Red Blood Cell Count 4.62 M/uL (4.33-5.43)
[2021-04-06 20:50] LABS: Protime INR 1.15
--- NOTE | 2021-04-06 20:58 | EDPHYS ---
Physician Documentation [facility] Name: Shan Faye Age: 35 yrs Sex: Male : 1985 Arrival Date: 04/06/2021 Time: 19:55 Bed 24 Private MD: ED Physician Rudy Alcala HPI: 04/06 20:14 This 35 yrs old Male presents to ER via EMS with complaints of Seizure. pkl 20:14 The patient presents with a history of multiple seizures, that last 30 second(s). pkl Character of seizure(s): Loss of consciousness: the patient experienced loss of consciousness, brief, Motor activity: generalized, shaking all over. Seizure onset: just prior to arrival. Patient c/o of stiff neck and unable to move right upper and lower extremities. Historical: - Allergies: 19:59 No Known Allergies; em - PMHx: 19:59 Anxiety; BRAIN DISORDER, ONE SIDE MORE DEVELOPED THAN THE OTHER; CVA (1993); em Depression; mental retardation; Seizures; WHEELCHAIR BOUND, CAN AMBULATE WITH ASSITANCE. WEAKNESS; (no longer current. Pt ambulatory and able to perform ADL's); - PSHx: 19:59 Cholecystectomy; em - Immunization history:: Adult Immunizations up to date, Client reports receiving the 2nd dose of the Covid vaccine. - Social history:: Smoking status: Patient denies any tobacco usage or history of. ROS: 20:14 Eyes: Negative for injury, pain, redness, and discharge, ENT: Negative for injury, pkl pain, and discharge. 20:14 Neck: Positive for stiffness. 20:14 Cardiovascular: Negative for chest pain. 20:14 Respiratory: Positive for cough, with no reported sputum. 20:14 Abdomen/GI: Negative for abdominal pain, nausea, vomiting, and diarrhea. 20:14 Back: Negative for acute changes. 20:14 : Negative for urinary symptoms. 20:14 MS/extremity: Positive for unable to move right upper and lower extremities. 20:14 Skin: Negative for rash. 20:14 Neuro: Positive for seizure activity, unable to move right upper and lower extremities. Exam: 20:14 Head/Face: Normocephalic, atraumatic. Eyes: Pupils equal round and reactive to light, pkl extra-ocular motions intact. Lids and lashes normal. Conjunctiva and sclera are non-icteric and not injected. Cornea within normal limits. Periorbital areas with no swelling, redness, or edema. ENT: Nares patent. No nasal discharge, no septal abnormalities noted. Tympanic membranes are normal and external auditory canals are clear. Oropharynx with no redness, swelling, or masses, exudates, or evidence of obstruction, uvula midline. Mucous membranes moist. 20:14 Neck: ROM/movement: nuchal rigidity. 20:14 Chest/axilla: Exam negative for acute changes. 20:14 Cardiovascular: Rate: normal, Rhythm: regular. 20:14 ECG was reviewed by the Attending Physician. 20:14 Respiratory: the patient does not display signs of respiratory distress, Respirations: normal, Breath sounds: are clear throughout. 20:14 Abdomen/GI: Bowel sounds: normal, Palpation: abdomen is soft and non-tender, in all quadrants. 20:14 Back: Exam negative for acute changes. 20:14 : Exam negative for acute changes. 20:14 Musculoskeletal/extremity: Extremities: grossly normal except: noted in the right upper and lower extremities: 20:14 Neuro: Orientation: is normal, Mentation: is normal, Cranial nerves: grossly normal, Motor: Strength is 1/5 in the right upper amd lower extremities. Vital Signs: 19:56 BP 123 / 82; Pulse 75; Resp 16; Temp 99.0(O); Pulse Ox 96% on R/A; Weight 84.37 kg; em Height 5 ft. 5 in. (165.10 cm); Pain 9/10; 20:51 BP 137 / 92; Pulse 76; Resp 16; Pulse Ox 98% ; ea 22:10 BP 135 / 80; Pulse 70; Resp 18; Temp 98.8; Pulse Ox 98% ; ea 19:56 Body Mass Index 30.95 (84.37 kg, 165.10 cm) em NIH Stroke Scale Scores: 20:27 NIHSS Score: 2 ea [place] Coma Score: 19:59 Eye Response: spontaneous(4). Verbal Response: oriented(5). Motor Response: obeys em commands(6). Total: 15. MDM: 20:01 Patient medically screened. pkl 20:43 Data reviewed: vital signs, nurses notes, lab test result(s), EKG, radiologic studies, pkl CT scan, plain films. ED course: Talked to Dr. Arreola regarding recurring seizures and stiff neck and unable to move right upper and lower extremities. Dr. Arreola said this not a stroke and no thrombolytics. To admit to Hospitalist and he will consult. 20:54 ED course: Talked to Bogdan KELLEY ) For observation ( Sr. Mcdonald ). pkl 20:59 Medical screen evaluation completed. [facility] emergency medical condition absent. pkl 04/06 20:09 Order name: Basic Metabolic Panel pkl 04/06 20:09 Order name: CBC with Diff; Complete Time: 21:13 pkl 04/06 20:09 Order name: LFT's; Complete Time: 21:13 pkl 04/06 20:09 Order name: Magnesium; Complete Time: 21:13 pkl 04/06 20:09 Order name: NT PRO-BNP; Complete Time: 21:13 pkl 04/06 20:09 Order name: PT-INR; Complete Time: 21:13 pkl 04/06 20:09 Order name: Troponin (emerg Dept Use Only); Complete Time: 21:13 pkl 04/06 20:09 Order name: XRAY Chest (1 view); Complete Time: 22:23 pkl 04/06 20:10 Order name: Basic Metabolic Panel; Complete Time: 21:13 EDMS 04/06 20:13 Order name: CT Head Brain wo Cont; Complete Time: 20:34 pkl 04/06 20:38 Order name: Glucose, Ancillary Testing; Complete Time: 20:50 EDMS 04/06 22:04 Order name: SARS-COV-2 RT PCR; Complete Time: 22:23 EDMS 04 20:09 Order name: EKG; Complete Time: 20:10 pkl 04/06 20:09 Order name: Cardiac monitoring; Complete Time: 20:25 pkl 04/06 20:09 Order name: EKG - Nurse/Tech; Complete Time: 20:25 pkl 04/06 20:09 Order name: IV Saline Lock; Complete Time: 20:37 pkl 04/06 20:09 Order name: Labs collected and sent; Complete Time: 20:37 pkl 04/06 20:09 Order name: O2 Per Protocol; Complete Time: 20:26 pkl 04/06 20:09 Order name: O2 Sat Monitoring; Complete Time: 20:26 pkl 04/06 21:05 Order name: CONS Physician Consult EDMS Administered Medications: 20:43 Drug: Keppra (levETIRAcetam) 1000 mg Route: IV; Rate: calculated rate; Site: right em antecubital; 21:06 Follow up: Response: No adverse reaction; IV Status: Completed infusion; IV Intake: ea 100ml 21:11 Drug: Ativan (LORazepam) 1 mg Route: IVP; Site: right antecubital; ea 22:10 Follow up: Response: No adverse reaction ea Point of Care Testing: Blood Glucose: 20:28 Blood Glucose: 90 mg/dL; em Ranges: Critical Glucose Levels:Adult <50 mg/dl or >400 mg/dl <40 mg/dl or >180 mg/dl Disposition Summary: 04/06/21 20:57 Hospitalization Ordered Hospitalization Status: Observation pkl Provider: Bayron Mcdonald pkl Location: Telemetry/MedSurg (observation) pkl Condition: Stable pkl Problem: new pkl Symptoms: are unchanged pkl Bed/Room Type: Standard pkl Room Assignment: 221(04/06/21 21:08) Diagnosis - Recurring seizures. Paralysis right upper and lower extremities pkl Forms: - Medication Reconciliation Form pkl - SBAR form pkl NIH Stroke Scale - NIH Stroke Score Date: 04/06/2021 Time: 20:27 Total Score = 2 1a. Level of Consciousness (LOC) - 0(Alert) 1b. Level of Consciousness (LOC) (Month \T\ Age) - 0(Both) 1c. LOC Commands (Open \T\ Closes Eyes/Grocery Sacker) - 0(Both) 2. Best Gaze (Lateral Gaze Paresis) - 0(Normal) 3. Visual Field Loss - 0(No visual loss) 4. Facial Palsy - 0(Normal) 5a. Left Arm: Motor (10-second hold) - 0(No drift) 5b. Right Arm: Motor (10-second hold) - 1(Drift) 6a. Left Leg: Motor (5-second hold - always test supine) - 0(No drift) 6b. Right Leg: Motor (5-second hold - always test supine) - 1(Drift) 7. Limb Ataxia (finger/nose \T\ heel/jennings - test with eyes open) - 0(Absent) 8. Sensory Loss (pinprick arms/legs/face) - 0(Normal) 9. Best Language: Aphasia (description/naming/reading) - 0(No aphasia) 10. Dysarthria (speech clarity - read or repeat words) - 0(Normal) 11. Extinction and Inattention (visual/tactile/auditory/spatial/personal) - 0(No abnormality) Initials: ea Signatures: Dispatcher [employer] EDMS Kate Zepeda RN RN mw Lam, Pin, MD MD pkl Munoz, Edgar, RN RN em Antunez, Elena, RN RN ea Corrections: (The following items were deleted from the chart) : 20:54 CORONAVIRUS+MR.LAB.BRZ ordered. EDIA EDMS 21:08 20:57 dolores small
--- NOTE | 2021-04-06 20:58 | ER ---
Nurse's Notes [facility] Name: Shan Faye Age: 35 yrs Sex: Male : 1985 Arrival Date: 04/06/2021 Time: 19:55 Bed 24 Private MD: Diagnosis: Recurring seizures. Paralysis right upper and lower extremities Presentation: 04/06 19:56 Chief complaint: EMS states: was at work and had 3 witnessed seizures that lasted a few em seconds each, pt was in a koo and did not fall or have any trauma, pt has hx of seizures, did not take his keppra today, pt A\T\Ox4 on arrival, also reports right arm pain that started after the seizure, hx of CVA at age 8, BGL 149. Coronavirus screen: Client denies travel out of the [place] in the last 14 days. Ebola Screen: Patient negative for fever greater than or equal to 101.5 degrees Fahrenheit, and additional compatible Ebola Virus Disease symptoms Patient denies exposure to infectious person. Patient denies travel to an Ebola-affected area in the 21 days before illness onset. No symptoms or risks identified at this time. Initial Sepsis Screen: Does the patient meet any 2 criteria? No. Patient's initial sepsis screen is negative. Does the patient have a suspected source of infection? No. Patient's initial sepsis screen is negative. Risk Assessment: Do you want to hurt yourself or someone else? Patient reports no desire to harm self or others. Onset of symptoms was April 06, 2021. 19:56 Method Of Arrival: EMS: [facility] em 19:56 Acuity: PAULINE 3 em Triage Assessment: 20:28 General: Appears in no apparent distress. Behavior is calm, cooperative, appropriate ea for age. Pain: Denies pain. Neuro: Level of Consciousness is awake, alert, obeys commands, Oriented to person, place, time. Respiratory: Airway is patent Respiratory effort is even, unlabored, Respiratory pattern is regular, symmetrical. Derm: Skin is pink, warm \T\ dry. Historical: - Allergies: 19:59 No Known Allergies; em - PMHx: 19:59 Anxiety; BRAIN DISORDER, ONE SIDE MORE DEVELOPED THAN THE OTHER; CVA (1993); em Depression; mental retardation; Seizures; WHEELCHAIR BOUND, CAN AMBULATE WITH ASSITANCE. WEAKNESS; (no longer current. Pt ambulatory and able to perform ADL's); - PSHx: 19:59 Cholecystectomy; em - Immunization history:: Adult Immunizations up to date, Client reports receiving the 2nd dose of the Covid vaccine. - Social history:: Smoking status: Patient denies any tobacco usage or history of. Screenin:18 Abuse screen: Denies threats or abuse. Nutritional screening: No deficits noted. ea Tuberculosis screening: No symptoms or risk factors identified. Fall Risk None identified. 20:28 The patient has not been NPO before screening. The patient is alert, able to follow ea commands. The patient does not exhibit slurred or garbled speech The patient is not exhibiting difficulty speaking. The patient does not exhibit difficulty understanding words. The patient is able to swallow own secretions with no drooling or need for suction. Patient tolerated one teaspoon of water. No drooling, immediate coughing, gurgling, or clearing of the throat was noted. The patient tolerated 90mL of water. No drooling, immediate coughing, gurgling, or clearing of the throat was noted. The patient passed the bedside swallow screening. Oral medications may be given as ordered. Contact Physician for further diet orders. Provider notified of bedside swallow screening results: Rudy Alcala MD. Assessment: 20:14 Reassessment: pt wheeled to CT via stretcher by me. em 21:05 Reassessment: Patient and/or family updated on plan of care and expected duration. Pain ea level reassessed. Patient is alert, oriented x 3, equal unlabored respirations, skin warm/dry/pink. 21:22 T-PA (Activase) Screening: Contraindications: Seizure at onset of stroke or other ea uncontrolled chronic seizure disorder: Yes. 21:40 Reassessment: Patient and/or family updated on plan of care and expected duration. Pain ea level reassessed. Patient is alert, oriented x 3, equal unlabored respirations, skin warm/dry/pink. Provider at bedside updating pt and family on plan of care. 22:09 Reassessment: Report called to receiving nurse on second floor. ea Vital Signs: 19:56 BP 123 / 82; Pulse 75; Resp 16; Temp 99.0(O); Pulse Ox 96% on R/A; Weight 84.37 kg; em Height 5 ft. 5 in. (165.10 cm); Pain 9/10; 20:51 BP 137 / 92; Pulse 76; Resp 16; Pulse Ox 98% ; ea 22:10 BP 135 / 80; Pulse 70; Resp 18; Temp 98.8; Pulse Ox 98% ; ea 19:56 Body Mass Index 30.95 (84.37 kg, 165.10 cm) em [place] Coma Score: 19:59 Eye Response: spontaneous(4). Verbal Response: oriented(5). Motor Response: obeys em commands(6). Total: 15. NIH Stroke Scale Scores: 20:27 NIHSS Score: 2 ea ED Course: 19:55 Patient arrived in ED. ds1 19:56 Maintain EMS IV. Dressing intact. Good blood return noted. Site clean \T\ dry. Gauge \T\ em site: 20 RAC. 19:59 Triage completed. em 19:59 Arm band placed on. em 20:01 Rudy Alcala MD is Attending Physician. pkl 20:18 Josephine Lara RN is Primary Nurse. ea 20:18 Patient has correct armband on for positive identification. Bed in low position. Call ea light in reach. Side rails up X2. 20:18 Seizure precautions initiated. ea 20:19 CT Head Brain wo Cont In Process Unspecified. EDMS 20:55 Bayron Mcdonald is Hospitalizing Provider. pkl 20:58 No provider procedures requiring assistance completed. Patient admitted, IV remains in ea place. 21:08 XRAY Chest (1 view) In Process Unspecified. EDMS Administered Medications: 20:43 Drug: Keppra (levETIRAcetam) 1000 mg Route: IV; Rate: calculated rate; Site: right em antecubital; 21:06 Follow up: Response: No adverse reaction; IV Status: Completed infusion; IV Intake: ea 100ml 21:11 Drug: Ativan (LORazepam) 1 mg Route: IVP; Site: right antecubital; ea 22:10 Follow up: Response: No adverse reaction ea Point of Care Testing: Blood Glucose: 20:28 Blood Glucose: 90 mg/dL; em Ranges: Intake: 21:06 IV: 100ml; Total: 100ml. ea Outcome: 20:57 Decision to Hospitalize by Provider. pkl 20:58 Instructed on the need for admit, Demonstrated understanding of instructions. ea 21:22 Condition: stable ea 22:22 Admitted to Med/surg accompanied by tech, room 221, with chart, Report called to ea Receiving nurse on second floor 22:22 Patient left the ED. sharri NIH Stroke Scale - NIH Stroke Score Date: 04/06/2021 Time: 20:27 Total Score = 2 1a. Level of Consciousness (LOC) - 0(Alert) 1b. Level of Consciousness (LOC) (Month \T\ Age) - 0(Both) 1c. LOC Commands (Open \T\ Closes Eyes/Community Services Officer) - 0(Both) 2. Best Gaze (Lateral Gaze Paresis) - 0(Normal) 3. Visual Field Loss - 0(No visual loss) 4. Facial Palsy - 0(Normal) 5a. Left Arm: Motor (10-second hold) - 0(No drift) 5b. Right Arm: Motor (10-second hold) - 1(Drift) 6a. Left Leg: Motor (5-second hold - always test supine) - 0(No drift) 6b. Right Leg: Motor (5-second hold - always test supine) - 1(Drift) 7. Limb Ataxia (finger/nose \T\ heel/jennings - test with eyes open) - 0(Absent) 8. Sensory Loss (pinprick arms/legs/face) - 0(Normal) 9. Best Language: Aphasia (description/naming/reading) - 0(No aphasia) 10. Dysarthria (speech clarity - read or repeat words) - 0(Normal) 11. Extinction and Inattention (visual/tactile/auditory/spatial/personal) - 0(No abnormality) Initials: ea Signatures: Dispatcher [employer] Rudy Tripp MD MD pkl Munoz, Edgar, RN Wendy Mcallister ds1 Josephine Lara RN RN sharri Corrections: (The following items were deleted from the chart) 20:52 20:51 BP 129 / 81; Pulse 80bpm; Resp 16bpm; Pulse Ox 98%; ea ea 20:59 20:14 Reassessment: pt wheeled to CT via wheelchair by nh em em
[2021-04-06 21:02] LABS: ALT/SGPT 32 U/L (12-78); AST/SGOT 38 U/L (15-37); Albumin 3.9 g/dL (3.4-5.0); Alkaline Phosphatase 66 U/L (45-117); BUN Blood Urea Nitrogen 14 mg/dL (7-18); Bicarbonate 27 mmol/L (21-32); Bilirubin Direct 0.1 mg/dL (0-0.2); Bilirubin Total 0.6 mg/dL (0.2-1.0); Glucose Level 84 mg/dL (74-106); Magnesium 2.2 mg/dL (1.8-2.4); NT PRO-BNP 45 pg/mL (<125); Potassium 3.5 mmol/L (3.5-5.1); Protein, Total 7.3 g/dL (6.4-8.2); Sodium Level 141 mmol/L (136-145); Troponin (Emerg Dept Use Only) < 0.02 ng/mL (0.0-0.045)
[2021-04-06] MEDS ORDERED: LEVETIRACETAM 500 MG/5 ML VIAL IV ONE (21:02)
[2021-04-06] MEDS ORDERED: NA CHLORIDE 0.9% 100 ML ONE (21:02)
[2021-04-06] MEDS ORDERED: LORazepam 2 MG/ML VIAL ONE (21:30)
--- NOTE | 2021-04-06 21:43 | RAD REPORT ---
EXAM DESCRIPTION: RAD - Chest Single View - 04/06/2021 9:07 pm CLINICAL HISTORY: seizure COMPARISON: Portable September 2020 TECHNIQUE: AP portable chest image was obtained 04/06/2021 9:07 pm . FINDINGS: Lung volumes are very low accentuating lung markings. Interstitial and patchy alveolar opa cities are present, mild in severity, and substantially less than seen on the prior study. Trachea is midline. Heart and vasculature are normal. No measurable pleural effusion and no pneumothorax. No ac jose manuel bony abnormality seen. No acute aortic findings suspected. IMPRESSION: Patchy interstitial alveolar opacities accentuated by shallow inspiration. Lung pattern is mostly due to artifact of low lung volumes. Mild viral infiltrative process including COVID-19 pneumonia would be possible.
[2021-04-06] MEDS ORDERED: ACETAMINOPHEN 500 MG TAB PO PRN (21:45)
[2021-04-06] MEDS ORDERED: ONDANSETRON 4 MG/2 ML VIAL IV PRN (21:45)
[2021-04-06] MEDS ORDERED: LORazepam 2 MG/ML VIAL IV PRN (21:45)
--- NOTE | 2021-04-06 22:51 | P.HP ---
Certification for Inpatient Patient admitted to: Observation With expected LOS: <2 Midnights Patient will require the following post-hospital care: None Practitioner: I am a practitioner with admitting privileges, knowledge of patient current condition, hospital course, and medical plan of care. Services: Services provided to patient in accordance with Admission requirements found in Title 42 Section 412.3 of the Code of Federal Regulations Patient History Date of Service: 04/06/21 Reason for admission: seizure History of Present Illness: Mr. Faye is a 35 yo M with history of seizures, anxiety, stroke, developmental disorder here today for witnessed seizure. Hwe wnet to work and his mom says that he called her and was uanble to talk. When she got there, he collapsed and started to seize, then he seized again with the EMT arrived and again in the ambulance. Each episode lasted around 30 seconds. They were generalized seizures followed by brief LOC. He says he is unable to move his right upper and lower extremity. He haHe did not take his Keppra this morning. He reports cough, night sweats chills, SOB and diarrhea. Denies N/V and sputum production. Head CT wnl. CXR shows patching interstitial alveolar opacities. Allergies No Known Drug Allergies Allergy (Verified 03/01/18 16:42) Unknown No Known Allergies Allergy (Uncoded 04/05/18 01:16) Unknown Home Medications: Buspirone HCl [Buspar*] 5 mg PO TID 12/25/15 Citalopram [Celexa*] 20 mg PO DAILY 12/25/15 Lurasidone HCl [Latuda] 1 tab PO BEDTIME 03/01/18 Perampanel [Fycompa] 2 mg PO SEECOM 03/01/18 Apixaban [Eliquis] 5 mg PO BID #60 tablet 09/23/20 Ascorbic Acid [Vitamin C*] 500 mg PO TID #90 tablet 09/23/20 Cholecalciferol (Vitamin D3) [Vitamin D 1000 Iu Tab*] 2,000 unit PO DAILY #60 tab 09/23/20 Insulin Glargine Human [Lantus*] 40 units SQ BID #10 ml 09/23/20 Sitagliptin Phosphate [Januvia*] 100 mg PO DAILY #30 tab 09/23/20 Zinc Sulfate [Zinc Sulfate*] 220 mg PO DAILY #30 cap 09/23/20 levETIRAcetam [Keppra*] 1,500 mg PO BID #180 tab 09/23/20 levoFLOXacin [Levaquin*] 500 mg PO DAILY #2 tab 09/23/20 predniSONE [Deltasone*] 20 mg PO BID #42 tab 09/23/20 - Past Medical/Surgical History Diabetic: No -: anxiety -: brain disorder (one side more developed than the other) -: CVA (1993) -: depression -: seizures -: Cholecystectomy Psychosocial/ Personal History: Patient is disabled and lives with his mother who is is primary instrumentation manager and POA-Divya - Social History Smoking Status: Never smoker Alcohol use: No CD- Drugs: No Caffeine use: No Place of Residence: Home Review of Systems General: Chills, Sweats Respiratory: Cough Gastrointestinal: Diarrhea Neurological: Weakness, Numbness, Seizures Physical Examination - Vital Signs Temperature: 98.8 F Blood Pressure: 135/80 Pulse: 70 Respirations: 18 - Physical Exam General: In no apparent distress, Cooperative HEENT: Atraumatic, PERRLA, Mucous membr. moist/pink, EOMI, Sclerae nonicteric Neck: Supple, 2+ carotid pulse no bruit, No LAD, Without JVD or thyroid abnormality Respiratory: Clear to auscultation bilaterally, Normal air movement Cardiovascular: Regular rate/rhythm, Normal S1 S2 Gastrointestinal: Normal bowel sounds, No tenderness Musculoskeletal: No tenderness Integumentary: No rashes Neurological: Normal speech, Normal tone, Cranial nerves 3-12 intact, Normal affect, Abnormal strength, Abnormal sensation Lymphatics: No axilla or inguinal lymphadenopathy - Studies Laboratory Data (last 24 hrs) 04/06/21 20:25: PT 13.2 H, INR 1.15 04/06/21 20:25: WBC 7.70, Hgb 13.2 L, Hct 38.5 L, Plt Count 266 04/06/21 20:25: Sodium 141, Potassium 3.5, BUN 14, Creatinine 0.86, Glucose 84, Magnesium 2.2, Total Bilirubin 0.6, AST 38 H, ALT 32, Alkaline Phosphatase 66 Assessment and Plan - Problems (Diagnosis) (1) Recurrent seizures Onset Date: 03/02/18 Current Visit: No Status: Acute - Plan neurology consulted continue 1g IV Keppra BID on telemetry, neurochecks, seizure precautions ativan PRN reconcile and continue home medications DVT ppx Discharge Plan: Home Plan to discharge in: 24 Hours - Advance Directives Does patient have a Living Will: No Does patient have a Durable POA for Healthcare: No - Code Status/Comfort Care Code Status Assessed: Yes (full code ) Critical Care: No Time Spent Managing Pts Care (In Minutes): 70
[2021-04-06 23:07] VITALS: BMI 32.0
[2021-04-07 04:47] LABS: Absolute Lymphocytes (CBC) 2.4 K/uL (0.7-4.9); Basophils % 0.5 % (0-1.3); Hematocrit 40.1 % (39.6-49.0); Lymphocytes % 43.9 % (15.3-44.8); MPV 8.8 fL (7.6-11.3); RBC Red Blood Cell Count 4.77 M/uL (4.33-5.43)
[2021-04-07 05:13] LABS: ALT/SGPT 29 U/L (12-78); AST/SGOT 34 U/L (15-37); Albumin 3.6 g/dL (3.4-5.0); Alkaline Phosphatase 59 U/L (45-117); BUN Blood Urea Nitrogen 10 mg/dL (7-18); Bicarbonate 27 mmol/L (21-32); Bilirubin Total 0.8 mg/dL (0.2-1.0); Glucose Level 89 mg/dL (74-106); Magnesium 2.3 mg/dL (1.8-2.4); Phosphorus 4.3 mg/dL (2.5-4.9); Potassium 3.3 mmol/L (3.5-5.1); Protein, Total 7.1 g/dL (6.4-8.2); Sodium Level 142 mmol/L (136-145)
[2021-04-07] MEDS ORDERED: ENOXAPARIN 40 MG/0.4 ML SQ SCH (09:00)
[2021-04-07] MEDS ORDERED: levETIRAcetam 1,000 MG in NA CHLORIDE 0.9% 100 ML IV SCH (09:00)
[2021-04-07] MEDS ORDERED: POTASSIUM CL SA 10 MEQ TAB PO ONE (09:00)
[2021-04-07 09:01] LABS: Urine Appearance CLEAR (Clear); Urine Bilirubin NEGATIVE (Negative); Urine Blood NEGATIVE (Negative); Urine Color YELLOW (Yellow); Urine Glucose NEGATIVE (Negative); Urine Protein NEGATIVE (Negative); Urine Specific Gravity 1.015 (1.005-1.030); Urine Urobilinogen 0.2 mg/dL (0.2-1.0)
[2021-04-07] MEDS ORDERED: LORazepam 2 MG/ML VIAL IV ONE (09:34)
[2021-04-07 09:51] LABS: Urine Microscopic Reflex NO UMIC
[2021-04-07 10:14] VITALS: O2SAT 95
--- NOTE | 2021-04-07 10:29 | EKG ---
Test Date: 2021-04-06 Test Time: 20:24:35 Baby Doctor: IVONE MEASUREMENT RESULTS: Intervals: Rate: 81 SD: 154 QRSD: 88 QT: 374 QTc: 434 [place]: P: 42 SD: 154 QRS: 13 T: 23 INTERPRETIVE STATEMENTS: Normal sinus rhythm Normal ECG Compared to ECG 03/16/2021 18:43:20 Sinus tachycardia no longer present Electronically Signed On 04-07-21 10:28:33 CDT by Joseph Harris
[2021-04-07] MEDS ORDERED: guaiFENesin 100 MG/5 ML UCUP PO PRN (11:27)
--- NOTE | 2021-04-07 12:23 | P.DS ---
Admission Date: 04/06/21 Discharge Date: 04/07/21 Disposition: ROUTINE DISCHARGE Discharge Condition: FAIR Reason for Admission: seizure - Problems (1) Seizure disorder Status: Acute Brief History of Present Illness: Mr. Faye is a 35 yo M with history of seizures, anxiety, stroke, developmental disorder who presented with witnessed seizure activity at work. Mother also reported he collapsed and had another episode of seizure before EMT arrived and again in the ambulance. Each episode lasted around 30 seconds. They were generalized seizures followed by brief LOC.After that he was unable to move his right upper and lower extremity. He did not take his Keppra that morning. He reported cough, night sweats chills. Head CT wnl. CXR shows patching interstitial alveolar opacities. Mother was concerned about stroke. Patient was hospotalized for further management. Hospital Course: Patient was placed on Iv Keppra by Neurology recommendation and Keppra level obtained. His right extremities weakness resolved. No more seizures during the hospital stay. Patient placed on Zithromax for atypical pneumonia. Case discussed with Dr. 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 Dr. Arreola recommended maintaining same dose of Keppra. Patient stable for d/c per Dr. Arreola. Vital Signs/Physical Exam: Temp Pulse Resp BP Pulse Ox 97.1 F 71 17 129/86 95 04/07/21 08:00 04/07/21 08:00 04/07/21 08:00 04/07/21 08:00 04/07/21 08:00 General: Alert, In no apparent distress, Oriented x3 HEENT: Mucous membr. moist/pink Neck: JVD not distended Respiratory: Clear to auscultation bilaterally, Normal air movement Cardiovascular: No edema, Regular rate/rhythm, Normal S1 S2 Gastrointestinal: Normal bowel sounds, Soft and benign, Non-distended, No tenderness Musculoskeletal: No swelling, No tenderness Integumentary: No rashes Neurological: Normal strength at 5/5 x4 extr Laboratory Data at Discharge: WBC 5.40 K/uL (4.3-10.9) D 04/07/21 04:27 Hgb 13.3 g/dL (13.6-17.9) L 04/07/21 04:27 Hct 40.1 % (39.6-49.0) 04/07/21 04:27 Plt Count 256 K/uL (152-406) 04/07/21 04:27 PT 13.2 SECONDS (9.5-12.5) H 04/06/21 20:25 INR 1.15 04/06/21 20:25 Sodium 142 mmol/L (136-145) 04/07/21 04:27 Potassium Cancelled 04/07/21 Unknown BUN 10 mg/dL (7-18) 04/07/21 04:27 Creatinine 0.66 mg/dL (0.55-1.3) 04/07/21 04:27 Glucose 89 mg/dL (74-106) 04/07/21 04:27 Phosphorus 4.3 mg/dL (2.5-4.9) 04/07/21 04:27 Magnesium 2.3 mg/dL (1.8-2.4) 04/07/21 04:27 Total Bilirubin 0.8 mg/dL (0.2-1.0) 04/07/21 04:27 AST 34 U/L (15-37) 04/07/21 04:27 ALT 29 U/L (12-78) 04/07/21 04:27 Alkaline Phosphatase 59 U/L (45-117) 04/07/21 04:27 Home Medications: Buspirone HCl [Buspar*] 5 mg PO TID 12/25/15 Citalopram [Celexa*] 20 mg PO DAILY 12/25/15 Lurasidone HCl [Latuda] 1 tab PO BEDTIME 03/01/18 Perampanel [Fycompa] 2 mg PO SEECOM 03/01/18 Apixaban [Eliquis] 5 mg PO BID #60 tablet 09/23/20 Ascorbic Acid [Vitamin C*] 500 mg PO TID #90 tablet 09/23/20 Cholecalciferol (Vitamin D3) [Vitamin D 1000 Iu Tab*] 2,000 unit PO DAILY #60 ta b 09/23/20 Insulin Glargine Human [Lantus*] 40 units SQ BID #10 ml 09/23/20 Sitagliptin Phosphate [Januvia*] 100 mg PO DAILY #30 tab 09/23/20 Zinc Sulfate [Zinc Sulfate*] 220 mg PO DAILY #30 cap 09/23/20 levETIRAcetam [Keppra*] 1,500 mg PO BID #180 tab 09/23/20 Azithromycin Tab [Zithromax*] 500 mg PO DAILY #5 tab 04/07/21 guaiFENesin [Robitussin 100MG/5ML*] 10 ml PO QID PRN #30 ucup 04/07/21 New Medications: guaiFENesin [Robitussin 100MG/5ML*] 10 ml PO QID PRN #30 ucup PRN Reason: Cough Azithromycin Tab [Zithromax*] 500 mg PO DAILY #5 tab Diet: ADA Activity: Seizure precautions Followup: Satinder Arreola MD [ASSOCIATE-ACTIVE - CAN ADMIT] - Jethro Allen DO [Primary Care Provider] -
[2021-04-07 12:56] VITALS: BP 120/77; TEMP 97.6
[2021-04-08] MEDS ORDERED: AZITHROMYCIN 250 MG TAB PO SCH (09:00)
== END 2021-04-07 13:51 | disposition home or self-care (01) ==
LOC: ER 19:40 → ERHOLD 21:09 → 2ND 21:16
PROVIDERS: ADMIT Internal Medicine; ATTEND Internal Medicine
DX: G40.909 Epilepsy, unspecified, not intractable, without status epilepticus (principal); J18.9 Pneumonia, unspecified organism; G83.84 Todd's paralysis (postepileptic); Z91.19 Patient's noncompliance with other medical treatment and regimen; R05 Cough; F41.9 Anxiety disorder, unspecified; F32.9 Major depressive disorder, single episode, unspecified; F89 Unspecified disorder of psychological development; F79 Unspecified intellectual disabilities; Z99.3 Dependence on wheelchair; Z86.73 Personal history of transient ischemic attack (TIA), and cerebral infarction without residual deficits; Z90.49 Acquired absence of other specified parts of digestive tract; Z79.01 Long term (current) use of anticoagulants; Z79.4 Long term (current) use of insulin; Z79.899 Other long term (current) drug therapy; Z20.822 Contact with and (suspected) exposure to COVID-19
CPT/HCPCS: 96365; 93005; 85025 ×2; 80048; 36415; 83735 ×2; 84100; 85610; 82947; 80076; 84443; 81003; 84484; 84439; 80053; 80177; 83880; 70450; 71045; 94760 ×2; 96375; 99285; U0003; J1650; J1953 ×2; G0378 ×3

== ENCOUNTER 2021-04-20 19:55 | Emergency (ER) | payer OTHER ==
--- OUTSIDE RECORDS SUMMARY | 2021-04-20 19:58 | XMS REPORT | Continuity of Care Document ---
:1985 Author Organization [facility]ly [facility] t Address [address] [place] [address] Care Team Providers Name Role Phone Unavailable [...] Clinicians Facility Department ID 2020-10-15 2020-10-15 Outpatient [facility] [id number] [facility] ent Clinics 2020-09-25 2020-09-25 Outpatient [facility] [id number] [facility] Clinics Results This patient has no known results.
[2021-04-20 20:53] LABS: Absolute Lymphocytes (CBC) 2.4 K/uL (0.7-4.9); Basophils % 0.5 % (0-1.3); Hematocrit 38.6 % (39.6-49.0); Lymphocytes % 39.2 % (15.3-44.8); MPV 9.6 fL (7.6-11.3); RBC Red Blood Cell Count 4.56 M/uL (4.33-5.43)
[2021-04-20 21:05] LABS: Protime INR 1.05
[2021-04-20] MEDS ORDERED: LEVETIRACETAM 500 MG/5 ML VIAL IV ONE (21:12)
[2021-04-20] MEDS ORDERED: NA CHLORIDE 0.9% 100 ML ONE (21:13)
[2021-04-20] MEDS ORDERED: NA CHLORIDE 0.9% 1,000 ML ONE (21:16)
[2021-04-20 21:17] LABS: ALT/SGPT 26 U/L (12-78); AST/SGOT 28 U/L (15-37); Alkaline Phosphatase 67 U/L (45-117); BUN Blood Urea Nitrogen 12 mg/dL (7-18); Bicarbonate 24 mmol/L (21-32); Bilirubin Direct 0.1 mg/dL (0-0.2); Bilirubin Total 0.6 mg/dL (0.2-1.0); Glucose Level 89 mg/dL (74-106); Potassium 3.3 mmol/L (3.5-5.1); Protein, Total 7.4 g/dL (6.4-8.2); Sodium Level 144 mmol/L (136-145)
[2021-04-20] MEDS ORDERED: POTASSIUM CL SA 10 MEQ TAB PO ONE (23:14)
--- NOTE | 2021-04-21 00:32 | ER ---
Nurse's Notes [facility] Name: Shan Faye Age: 35 yrs Sex: Male : 1985 Arrival Date: 04/20/2021 Time: 19:58 Bed 3 Private MD: Diagnosis: Seizure disorder Presentation: 04/20 20:02 Chief complaint: EMS states: Toned out to pt's work co worker reported they noticed pt ea was about to have a seizure, lowered him to the ground, EMS reported upon arrival pt was post ictal. EMS reported en route he had a tonic clonic seizure ativan IV given, 18G IV to left AC. Coronavirus screen: At this time, the client does not indicate any symptoms associated with coronavirus-19. Ebola Screen: No symptoms or risks identified at this time. Initial Sepsis Screen: Does the patient meet any 2 criteria? No. Patient's initial sepsis screen is negative. Does the patient have a suspected source of infection? No. Patient's initial sepsis screen is negative. Risk Assessment: Do you want to hurt yourself or someone else? Patient reports no desire to harm self or others. Onset of symptoms was April 20, 2021. 20:02 Method Of Arrival: EMS: [facility] ea 20:02 Acuity: PAULINE 3 ea Triage Assessment: 20:06 General: Appears in no apparent distress. Behavior is calm, cooperative. Pain: Denies ph pain. Historical: - Home Meds: 20:06 levetiracetam 750 mg Oral tab 2 tabs twice a day [Active]; Latuda 40 mg Oral tab 1 tab ea once daily [Active]; Fycompa 8 mg Oral tab 1 tab once daily [Active]; citalopram 20 mg tab 1 tab once daily [Active]; buspirone 7.5 mg Oral tab three times a day [Active]; - PMHx: 20:06 WHEELCHAIR BOUND, CAN AMBULATE WITH ASSITANCE. WEAKNESS; (no longer current. Pt ea ambulatory and able to perform ADL's); Seizures; mental retardation; CVA (1993); Depression; BRAIN DISORDER, ONE SIDE MORE DEVELOPED THAN THE OTHER; Anxiety; - PSHx: 20:06 Cholecystectomy; ea - Immunization history:: Adult Immunizations up to date. - Social history:: Smoking status: Patient denies any tobacco usage or history of. Screenin:06 Abuse screen: Denies threats or abuse. Nutritional screening: No deficits noted. ea Tuberculosis screening: No symptoms or risk factors identified. Fall Risk None identified. Assessment: 20:00 General: Appears in no apparent distress. Behavior is calm, cooperative, appropriate ea for age. Pain: Denies pain. Neuro: Level of Consciousness is awake, obeys commands, Oriented to person. Cardiovascular: Patient's skin is warm and dry. Respiratory: Airway is patent Respiratory effort is even, unlabored, Respiratory pattern is regular, symmetrical. Derm: Skin is pink, warm \T\ dry. 23:16 Reassessment: Patient and/or family updated on plan of care and expected duration. Pain ea level reassessed. Patient is alert, oriented x 3, equal unlabored respirations, skin warm/dry/pink. Vital Signs: 19:58 BP 126 / 84; Pulse 70; Resp 18; Temp 97.8; Pulse Ox 99% ; ea 20:06 BP 123 / 77; Pulse 74; Resp 18; Temp 97.9; Pulse Ox 100% on R/A; ph 22:30 BP 125 / 82; Pulse 61; Resp 16; Pulse Ox 100% on R/A; ak2 23:58 BP 125 / 90; Pulse 60; Resp 16; Pulse Ox 97% on R/A; ea ED Course: 19:58 Patient arrived in ED. ea 20:01 Josephine Lara, RN is Primary Nurse. ea 20:06 Triage completed. ea 20:06 Patient has correct armband on for positive identification. Bed in low position. Call ea light in reach. Side rails up X2. 20:06 Arm band placed on right wrist. Patient placed in an exam room, on a stretcher, on ea pulse oximetry. 20:07 No provider procedures requiring assistance completed. Inserted saline lock: 20 gauge ph in left antecubital area, using aseptic technique. 20:33 Rudy Alcala MD is Attending Physician. pkl 04/21 00:31 Satinder Arreola MD is Referral Physician. pkl Administered Medications: 04/20 20:52 Drug: NS 0.9% 1000 ml Route: IV; Rate: 125 ml/hr; Site: left antecubital; ak2 20:52 Drug: Keppra (levETIRAcetam) 1000 mg Route: IV; Rate: 1 calculated rate; Site: left ak2 antecubital; 22:53 Drug: K-Dur (potassium chloride) 20 mEq Route: PO; ak2 Outcome: 04/21 00:32 Discharge ordered by . dolores 00:51 Patient left the ED. ea Signatures: Rudy Alcala MD MD pkl Hall, Patricia, RN RN ph Antunez, Elena, RN RN ea [place]ol[place], Anthony [facility]
--- NOTE | 2021-04-21 00:33 | EDPHYS ---
Physician Documentation [facility] Name: Shan Faye Age: 35 yrs Sex: Male : 1985 Arrival Date: 04/20/2021 Time: 19:58 Bed 3 Private MD: ED Physician Rudy Alcala HPI: 04/20 20:48 This 35 yrs old Male presents to ER via EMS with unknown complaint. pkl 20:48 The patient presents after having a single isolated seizure, that lasted an unknown pkl period of time. Character of seizure(s): Loss of consciousness: the patient experienced loss of consciousness, Motor activity: generalized. Seizure onset: just prior to arrival. Associated injury: The patient did not suffer any apparent associated injury. The patient has experienced similar episodes in the past, several times. Historical: - Home Meds: 20:06 levetiracetam 750 mg Oral tab 2 tabs twice a day [Active]; Latuda 40 mg Oral tab 1 tab ea once daily [Active]; Fycompa 8 mg Oral tab 1 tab once daily [Active]; citalopram 20 mg tab 1 tab once daily [Active]; buspirone 7.5 mg Oral tab three times a day [Active]; - PMHx: 20:06 WHEELCHAIR BOUND, CAN AMBULATE WITH ASSITANCE. WEAKNESS; (no longer current. Pt ea ambulatory and able to perform ADL's); Seizures; mental retardation; CVA (1993); Depression; BRAIN DISORDER, ONE SIDE MORE DEVELOPED THAN THE OTHER; Anxiety; - PSHx: 20:06 Cholecystectomy; ea - Immunization history:: Adult Immunizations up to date. - Social history:: Smoking status: Patient denies any tobacco usage or history of. ROS: 20:48 Eyes: Negative for injury, pain, redness, and discharge, ENT: Negative for injury, pkl pain, and discharge, Neck: Negative for injury, pain, and swelling, Cardiovascular: Negative for chest pain, palpitations, and edema, Respiratory: Negative for shortness of breath, cough, wheezing, and pleuritic chest pain, Abdomen/GI: Negative for abdominal pain, nausea, vomiting, diarrhea, and constipation, Back: Negative for injury and pain, : Negative for injury, bleeding, discharge, and swelling, MS/Extremity: Negative for injury and deformity, Skin: Negative for injury, rash, and discoloration. 20:48 Neuro: Positive for loss of consciousness, seizure activity. Exam: 20:48 Head/Face: Normocephalic, atraumatic. Eyes: Pupils equal round and reactive to light, pkl extra-ocular motions intact. Lids and lashes normal. Conjunctiva and sclera are non-icteric and not injected. Cornea within normal limits. Periorbital areas with no swelling, redness, or edema. ENT: Nares patent. No nasal discharge, no septal abnormalities noted. Tympanic membranes are normal and external auditory canals are clear. Oropharynx with no redness, swelling, or masses, exudates, or evidence of obstruction, uvula midline. Mucous membranes moist. Neck: Trachea midline, no thyromegaly or masses palpated, and no cervical lymphadenopathy. Supple, full range of motion without nuchal rigidity, or vertebral point tenderness. No Meningismus. Chest/axilla: Normal chest wall appearance and motion. Nontender with no deformity. No lesions are appreciated. Cardiovascular: Regular rate and rhythm with a normal S1 and S2. No gallops, murmurs, or rubs. Normal PMI, no JVD. No pulse deficits. Respiratory: Lungs have equal breath sounds bilaterally, clear to auscultation and percussion. No rales, rhonchi or wheezes noted. No increased work of breathing, no retractions or nasal flaring. Abdomen/GI: Soft, non-tender, with normal bowel sounds. No distension or tympany. No guarding or rebound. No evidence of tenderness throughout. Back: No spinal tenderness. No costovertebral tenderness. Full range of motion. Skin: Warm, dry with normal turgor. Normal color with no rashes, no lesions, and no evidence of cellulitis. MS/ Extremity: Pulses equal, no cyanosis. Neurovascular intact. Full, normal range of motion. 20:48 Neuro: Orientation: unable to test, the patient is post-ictal, Cranial nerves: unable to test, the patient is post-ictal, Motor: unable to test, the patient is post-ictal. Vital Signs: 19:58 BP 126 / 84; Pulse 70; Resp 18; Temp 97.8; Pulse Ox 99% ; ea 20:06 BP 123 / 77; Pulse 74; Resp 18; Temp 97.9; Pulse Ox 100% on R/A; ph 22:30 BP 125 / 82; Pulse 61; Resp 16; Pulse Ox 100% on R/A; ak2 23:58 BP 125 / 90; Pulse 60; Resp 16; Pulse Ox 97% on R/A; ea MDM: 20:33 Patient medically screened. pkl 04/21 00:29 Data reviewed: vital signs, nurses notes, lab test result(s). ED course: Patient pkl feeling better. Awake. Advised patient and mother to follow up with Dr. Arreola in 2 to 3 days. . 04/20 20:07 Order name: Acetaminophen 04/20 20:07 Order name: Basic Metabolic Panel 04/20 20:07 Order name: CBC with Diff; Complete Time: 22:36 04/20 20:07 Order name: ETOH Level; Complete Time: 22:36 04/20 20:07 Order name: Hepatic Function; Complete Time: 22:36 04/20 20:07 Order name: PT-INR; Complete Time: 22:36 04/20 20:07 Order name: Ptt, Activated; Complete Time: 22:36 04/20 20:07 Order name: Salicylate; Complete Time: 22:36 04/20 20:08 Order name: Acetaminophen Level; Complete Time: 22:36 EDMS 04/20 20:08 Order name: Basic Metabolic Panel; Complete Time: 22:36 EDMS 04/20 20:07 Order name: EKG; Complete Time: 20:08 04/20 20:07 Order name: EKG - Nurse/Tech; Complete Time: 20:08 04/20 20:07 Order name: IV Saline Lock; Complete Time: 20:08 04/20 20:07 Order name: Labs collected and sent; Complete Time: 20:08 Administered Medications: 04/20 20:52 Drug: NS 0.9% 1000 ml Route: IV; Rate: 125 ml/hr; Site: left antecubital; ak2 20:52 Drug: Keppra (levETIRAcetam) 1000 mg Route: IV; Rate: 1 calculated rate; Site: left ak2 antecubital; 22:53 Drug: K-Dur (potassium chloride) 20 mEq Route: PO; ak2 Disposition Summary: 04/21/21 00:32 Discharge Ordered Location: Home pkl Problem: new pkl Symptoms: have improved pkl Condition: Stable pkl Diagnosis - Seizure disorder pkl Followup: pkl - With: Satinder Arreola MD - When: 2 - 3 days - Reason: Re-evaluation by your physician Discharge Instructions: - Discharge Summary Sheet pkl Forms: - Work release form pkl - Medication Reconciliation Form pkl - Thank You Letter pkl - Antibiotic Education pkl - Prescription Opioid Use pkl Signatures: Dispatcher [employer] EDRudy Hernandez MD MD pkl Josephine Lara, RN RN Pedro Lopes
[2021-04-21 01:31] VITALS: TEMP 97.9
[2021-04-21 01:35] VITALS: BP 125/90; O2SAT 97
== END 2021-04-21 00:51 | disposition home or self-care (01) ==
LOC: ER 19:55
DX: G40.909 Epilepsy, unspecified, not intractable, without status epilepticus (principal); F79 Unspecified intellectual disabilities; Z86.73 Personal history of transient ischemic attack (TIA), and cerebral infarction without residual deficits
CPT/HCPCS: 93005; 85025; 80048; 36415; 80320; 80329 ×2; 85610; 80076; 85730; 96374; 99284; J1953; J7030

== ENCOUNTER 2021-05-06 04:43 | Emergency (ER) | payer OTHER ==
--- OUTSIDE RECORDS SUMMARY | 2021-05-06 04:46 | XMS REPORT | Continuity of Care Document ---
:1985 Author Organization [facility] t Address [address] [place] [address] Care Team Providers Name Role Phone Unavailable [...] Clinicians Facility Department ID 2020-10-15 2020-10-15 Outpatient [facility] [id number] [facility]00 [facility] ent Clinics 2020-09-25 2020-09-25 Outpatient [facility] [id number] [facility]00 [facility] ent Clinics Results This patient has no known results.
[2021-05-06 05:22] LABS: Absolute Lymphocytes (CBC) 2.6 K/uL (0.7-4.9); Basophils % 0.5 % (0-1.3); Lymphocytes % 40.2 % (15.3-44.8); MPV 8.6 fL (7.6-11.3); RBC Red Blood Cell Count 5.01 M/uL (4.33-5.43)
[2021-05-06] MEDS ORDERED: LEVETIRACETAM 500 MG/5 ML VIAL IV ONE (05:27)
[2021-05-06] MEDS ORDERED: NA CHLORIDE 0.9% 100 ML ONE (05:27)
[2021-05-06 05:34] LABS: Protime INR 1.03
[2021-05-06 05:41] LABS: ALT/SGPT 35 U/L (12-78); AST/SGOT 31 U/L (15-37); Albumin 4.1 g/dL (3.4-5.0); Alkaline Phosphatase 69 U/L (45-117); BUN Blood Urea Nitrogen 17 mg/dL (7-18); Bicarbonate 23 mmol/L (21-32); Bilirubin Direct 0.1 mg/dL (0-0.2); Bilirubin Total 0.7 mg/dL (0.2-1.0); Glucose Level 83 mg/dL (74-106); Magnesium 2.3 mg/dL (1.8-2.4); NT PRO-BNP 17 pg/mL (<125); Potassium 3.7 mmol/L (3.5-5.1); Protein, Total 7.6 g/dL (6.4-8.2); Sodium Level 139 mmol/L (136-145); Troponin (Emerg Dept Use Only) < 0.02 ng/mL (0.0-0.045)
[2021-05-06] MEDS ORDERED: LORazepam 2 MG/ML VIAL ONE (05:41)
--- NOTE | 2021-05-06 06:23 | EDPHYS ---
Physician Documentation [facility] Name: Shan Faye Age: 35 yrs Sex: Male : 1985 Arrival Date: 05/06/2021 Time: 04:53 Bed 14 Private MD: Isaiah Espinoza HPI: 05/06 05:02 This 35 yrs old Male presents to ER via Unassigned with complaints of seizure annie at home. 05:02 The patient presents after having a single isolated seizure, that lasted an unknown annie period of time. Character of seizure(s): Loss of consciousness: it is not known if the patient experienced loss of consciousness, Motor activity: generalized, Incontinence: none, Apnea: the patient did not experience apnea, Circulation: the patient did not experience evidence of pulse disturbance. Seizure onset: this morning. Context: the seizure(s) was witnessed, by family. Seizure Hx: Cause: family history, unknown, Last seizure: The patient's last seizure was approximately 2 month(s) ago. Associated injury: The patient did not suffer any apparent associated injury. Current symptoms: Currently, the patient is not experiencing any symptoms, the patient feels back to baseline. The patient has experienced similar episodes in the past, multiple times. Historical: - Allergies: 05:53 No Known Allergies; ak2 - Home Meds: 05:53 buspirone 7.5 mg Oral tab three times a day [Active]; ak2 05:53 citalopram 20 mg tab 1 tab once daily [Active]; Fycompa 8 mg Oral tab 1 tab once daily ak2 [Active]; Latuda 40 mg Oral tab 1 tab once daily [Active]; levetiracetam 750 mg Oral tab 2 tabs twice a day [Active]; - PMHx: 05:53 Anxiety; BRAIN DISORDER, ONE SIDE MORE DEVELOPED THAN THE OTHER; CVA (1993); ak2 Depression; mental retardation; Seizures; WHEELCHAIR BOUND, CAN AMBULATE WITH ASSITANCE. WEAKNESS; (no longer current. Pt ambulatory and able to perform ADL's); - PSHx: 05:53 Cholecystectomy; ak2 - Immunization history:: Adult Immunizations up to date. - Social history:: Smoking status: unknown. - Family history:: not pertinent. ROS: 05:02 Constitutional: Negative for fever, chills, and weight loss, Eyes: Negative for injury, annie pain, redness, and discharge, ENT: Negative for injury, pain, and discharge, Neck: Negative for injury, pain, and swelling, Cardiovascular: Negative for chest pain, palpitations, and edema, Respiratory: Negative for shortness of breath, cough, wheezing, and pleuritic chest pain, Abdomen/GI: Negative for abdominal pain, nausea, vomiting, diarrhea, and constipation, Back: Negative for injury and pain, : Negative for injury, bleeding, discharge, and swelling, MS/Extremity: Negative for injury and deformity, Skin: Negative for injury, rash, and discoloration, Psych: Negative for depression, anxiety, suicide ideation, homicidal ideation, and hallucinations, Allergy/Immunology: Negative for hives, rash, and allergies, Endocrine: Negative for neck swelling, polydipsia, polyuria, polyphagia, and marked weight changes, Hematologic/Lymphatic: Negative for swollen nodes, abnormal bleeding, and unusual bruising. 05:02 Neuro: Positive for altered mental status, seizure activity, weakness. Exam: 05:02 Constitutional: This is a well developed, well nourished patient who is awake, alert, annie and in no acute distress. Head/Face: Normocephalic, atraumatic. Eyes: Pupils equal round and reactive to light, extra-ocular motions intact. Lids and lashes normal. Conjunctiva and sclera are non-icteric and not injected. Cornea within normal limits. Periorbital areas with no swelling, redness, or edema. ENT: Nares patent. No nasal discharge, no septal abnormalities noted. Tympanic membranes are normal and external auditory canals are clear. Oropharynx with no redness, swelling, or masses, exudates, or evidence of obstruction, uvula midline. Mucous membranes moist. Neck: Trachea midline, no thyromegaly or masses palpated, and no cervical lymphadenopathy. Supple, full range of motion without nuchal rigidity, or vertebral point tenderness. No Meningismus. Chest/axilla: Normal chest wall appearance and motion. Nontender with no deformity. No lesions are appreciated. Cardiovascular: Regular rate and rhythm with a normal S1 and S2. No gallops, murmurs, or rubs. Normal PMI, no JVD. No pulse deficits. Respiratory: Lungs have equal breath sounds bilaterally, clear to auscultation and percussion. No rales, rhonchi or wheezes noted. No increased work of breathing, no retractions or nasal flaring. Abdomen/GI: Soft, non-tender, with normal bowel sounds. No distension or tympany. No guarding or rebound. No evidence of tenderness throughout. Back: No spinal tenderness. No costovertebral tenderness. Full range of motion. Male : Normal genitalia with no discharge or lesions. Skin: Warm, dry with normal turgor. Normal color with no rashes, no lesions, and no evidence of cellulitis. MS/ Extremity: Pulses equal, no cyanosis. Neurovascular intact. Full, normal range of motion. Neuro: Awake and alert, GCS 15, oriented to person, place, time, and situation. Cranial nerves II-XII grossly intact. Motor strength 5/5 in all extremities. Sensory grossly intact. Cerebellar exam normal. Normal gait. Psych: Awake, alert, with orientation to person, place and time. Behavior, mood, and affect are within normal limits. Vital Signs: 05:49 BP 122 / 63; Pulse 68; Resp 18; Temp 98.8; Pulse Ox 100% on R/A; ak2 05:54 BP 121 / 77; Pulse 64; Resp 16; Pulse Ox 98% on R/A; ak2 MDM: 05:00 Patient medically screened. [facility] 05:05 Differential diagnosis: cardiac arrhythmia, seizure. Data reviewed: vital signs, nurses [facility] notes, EMS record, lab test result(s), EKG, radiologic studies. Data interpreted: personal lines sales executive: not applicable for this patient encounter. rate is 75 beats/min, rhythm is regular, Pulse oximetry: on room air is 100 %. Test interpretation: by ED physician or midlevel provider: ECG, plain radiologic studies. Counseling: I had a detailed discussion with the patient and/or guardian regarding: the historical points, exam findings, and any diagnostic results supporting the discharge/admit diagnosis, lab results, radiology results, the need for outpatient follow up, for definitive care, a family practitioner, a neurologist. 05/06 04:59 Order name: Basic Metabolic Panel [facility] 05/06 04:59 Order name: CBC with Diff [facility] 05/06 04:59 Order name: LFT's [facility] 05/06 04:59 Order name: Magnesium [facility] 05/06 04:59 Order name: NT PRO-BNP [facility] 05/06 04:59 Order name: PT-INR; Complete Time: 06:22 [facility] 05/06 04:59 Order name: Troponin (emerg Dept Use Only); Complete Time: 06:22 [facility] 05/06 05:00 Order name: Basic Metabolic Panel; Complete Time: 06:22 EDMS 05/06 05:00 Order name: CBC with Automated Diff; Complete Time: 06:22 EDMS 05/06 05:00 Order name: Liver (Hepatic) Function; Complete Time: 06:22 EDMS 05/06 05:00 Order name: Magnesium; Complete Time: 06:22 EDMS 05/06 05:00 Order name: NT PRO-BNP; Complete Time: 06:22 EDMS 05/06 04:59 Order name: XRAY Chest (1 view) [facility] 05/06 04:59 Order name: EKG; Complete Time: 05:00 [facility] 05/06 04:59 Order name: Cardiac monitoring [facility] 05/06 04:59 Order name: EKG - Nurse/Tech [facility] 05/06 04:59 Order name: IV Saline Lock [facility] 05/06 04:59 Order name: Labs collected and sent [facility] 05/06 04:59 Order name: O2 Per Protocol [facility] 05/06 04:59 Order name: O2 Sat Monitoring [facility] 05/06 04:59 Order name: Seizure Precautions [facility] Administered Medications: 05:01 Drug: NS 0.9% 500 ml Route: IV; Rate: bolus; Site: right forearm; ak2 05:07 Drug: Keppra (levETIRAcetam) 1000 mg Route: IV; Rate: per protocol; Site: right forearm;ak2 05:23 Drug: Ativan (LORazepam) 1 mg Route: IVP; Site: right forearm; em Disposition Summary: 05/06/21 06:22 Discharge Ordered Location: Home annie Problem: new annie Symptoms: have improved annie Condition: Stable annie Diagnosis - Epileptic seizures related to external causes annie - Epileptic seizures related to external causes, not intractable annie Followup: annie - With: Private Physician - When: 2 - 3 days - Reason: Recheck today's complaints, Continuance of care, Re-evaluation by your physician Followup: annie - With: - When: 2 - 3 days - Reason: Recheck today's complaints, Re-evaluation by your physician Discharge Instructions: - Discharge Summary Sheet annie - Seizure, Adult annie - Seizure, Adult, [id number] [facility] Forms: - Medication Reconciliation Form annie - Thank You Letter annie - Antibiotic Education annie - Prescription Opioid Use annie Prescriptions: - Keppra 750 mg Oral Tablet - take 1 tablet by ORAL route every 12 hours; 20 tablet; Refills: 0, Product annie Selection Permitted Signatures: Dispatcher [employer] Isaiah Erwin MD MD cha Munoz, Edgar RN RN Pedro Murillo
--- NOTE | 2021-05-06 06:23 | ER ---
Nurse's Notes 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 Coronavirus screen: Client denies ak2 travel out of the [place] in the last 14 days. At this time, the client does not indicate any symptoms associated with coronavirus-19. Ebola Screen: Patient negative for fever greater than or equal to 101.5 degrees Fahrenheit, and additional compatible Ebola Virus Disease symptoms Patient denies exposure to infectious person. Patient denies travel to an Ebola-affected area in the 21 days before illness onset. No symptoms or risks identified at this time. Initial Sepsis Screen: Does the patient meet any 2 criteria? No. Patient's initial sepsis screen is negative. Does the patient have a suspected source of infection? No. Patient's initial sepsis screen is negative. Risk Assessment: Do you want to hurt yourself or someone else? Patient reports no desire to harm self or others. Onset of symptoms was May 06, 2021. 05:49 Method Of Arrival: EMS: [facility] ny2 05:49 Acuity: PAULINE 3 ak2 Triage Assessment: 05:53 General: Appears in no apparent distress. Behavior is calm, cooperative. Pain: Denies ak2 pain. Historical: - Allergies: 05:53 No Known Allergies; ak2 - Home Meds: 05:53 buspirone 7.5 mg Oral tab three times a day [Active]; ak2 05:53 citalopram 20 mg tab 1 tab once daily [Active]; Fycompa 8 mg Oral tab 1 tab once daily ak2 [Active]; Latuda 40 mg Oral tab 1 tab once daily [Active]; levetiracetam 750 mg Oral tab 2 tabs twice a day [Active]; - PMHx: 05:53 Anxiety; BRAIN DISORDER, ONE SIDE MORE DEVELOPED THAN THE OTHER; CVA (1993); ak2 Depression; mental retardation; Seizures; WHEELCHAIR BOUND, CAN AMBULATE WITH ASSITANCE. WEAKNESS; (no longer current. Pt ambulatory and able to perform ADL's); - PSHx: 05:53 Cholecystectomy; ak2 - Immunization history:: Adult Immunizations up to date. - Social history:: Smoking status: unknown. - Family history:: not pertinent. Screenin:54 Abuse screen: Denies threats or abuse. Denies injuries from another. Nutritional ak2 screening: No deficits noted. Tuberculosis screening: No symptoms or risk factors identified. Fall Risk None identified. Vital Signs: 05:49 BP 122 / 63; Pulse 68; Resp 18; Temp 98.8; Pulse Ox 100% on R/A; ak2 05:54 BP 121 / 77; Pulse 64; Resp 16; Pulse Ox 98% on R/A; ak2 ED Course: 04:53 Patient arrived in ED. am2 04:55 Isaiah Ferrer MD is Attending Physician. annie 05:51 Triage completed. ak2 05:54 Patient has correct armband on for positive identification. ak2 05:54 Patient placed in the treatment room, on a stretcher. ak2 05:54 No provider procedures requiring assistance completed. Inserted saline lock: 20 gauge ak2 in right forearm, using aseptic technique. 06:22 Satinder Arreola MD is Referral Physician. annie 07:21 XRAY Chest (1 view) In Process Unspecified. EDMS Administered Medications: 05:01 Drug: NS 0.9% 500 ml Route: IV; Rate: bolus; Site: right forearm; ak2 05:07 Drug: Keppra (levETIRAcetam) 1000 mg Route: IV; Rate: per protocol; Site: right forearm;ak2 05:23 Drug: Ativan (LORazepam) 1 mg Route: IVP; Site: right forearm; em Outcome: 06:22 Discharge ordered by . annie 06:53 Discharged to home ambulatory. ak2 06:53 Condition: good 06:53 Discharge instructions given to patient. 06:54 Patient left the ED. ak2 Signatures: Dispatcher [employer] EDMS Isaiah Ferrer MD MD cha Munoz, Edgar, RN RN Alee Rebolledo 2 Pedro Sánchez ak2
[2021-05-06 06:59] VITALS: TEMP 98.8
[2021-05-06 07:01] VITALS: BP 121/77; O2SAT 98
--- NOTE | 2021-05-06 07:42 | RAD REPORT ---
EXAM DESCRIPTION: RAD - Chest Single View - 05/06/2021 7:21 am CLINICAL HISTORY: COUGH COMPARISON: Chest Single View dated 04/06/2021; Chest Single View dated 09/20/2020; Chest Single View dated 09/19/2020; Chest Single View dated 09/18/2020 FINDINGS: No evidence of edema or pneumonia. The heart size is within normal limits.No acute osseous abnormality. No significant pleural effusions or pneumothorax. IMPRESSION: No acute cardiopulmonary disease.
--- NOTE | 2021-05-07 07:43 | EKG ---
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
== END 2021-05-06 06:54 | disposition home or self-care (01) ==
LOC: ER 04:43
DX: G40.509 Epileptic seizures related to external causes, not intractable, without status epilepticus (principal); F41.8 Other specified anxiety disorders; F79 Unspecified intellectual disabilities
CPT/HCPCS: 93005; 85025; 80048; 36415; 83735; 85610; 80076; 84484; 83880; 71045; J1953; 96374; 96375; 99284

== ENCOUNTER 2021-05-11 19:46 | Emergency (ER) | payer OTHER ==
--- OUTSIDE RECORDS SUMMARY | 2021-05-11 19:49 | XMS REPORT | Continuity of Care Document ---
:1985 Author Organization [facility] t Address [address] [place] [id number] Care Team Providers Name Role Phone Unavailable [...] ID 2020-10-15 2020-10-15 Outpatient [facility] [id number] [facility]00 [facility] 2020-09-25 2020-09-25 Outpatient [facility] [id number] [facility]00 [facility] Results This patient has no known results.
--- NOTE | 2021-05-12 00:41 | ER ---
Nurse's Notes [facility] Name: Shan Faye Age: 35 yrs Sex: Male : 1985 Arrival Date: 05/11/2021 Time: 19:55 Bed Waiting Private MD: Diagnosis: Presentation: 05/11 20:42 Chief complaint: Patient states: Pt stated, "I'm having a nervous breakdown. I'm under kg too much pressure, me and my mom have been having issues and I have insomnia and haven't slept in several days." Pt denies suicidal or homicidal ideations. Coronavirus screen: Client denies travel out of the [place] in the last 14 days. At this time, unable to obtain information related to travel outside the [place] At this time, the client does not indicate any symptoms associated with coronavirus-19. Ebola Screen: Patient negative for fever greater than or equal to 101.5 degrees Fahrenheit, and additional compatible Ebola Virus Disease symptoms Patient denies exposure to infectious person. Patient denies travel to an Ebola-affected area in the 21 days before illness onset. Initial Sepsis Screen: Does the patient meet any 2 criteria? No. Patient's initial sepsis screen is negative. Does the patient have a suspected source of infection? No. Patient's initial sepsis screen is negative. Risk Assessment: Do you want to hurt yourself or someone else? Patient reports no desire to harm self or others. Onset of symptoms was May 10, 2021. 20:42 Method Of Arrival: EMS: [facility] kg 20:42 Acuity: PAULINE 4 kg Triage Assessment: 20:44 General: Appears in no apparent distress. Behavior is calm, cooperative, appropriate kg for age, quiet. Pain: Denies pain. Historical: - Allergies: 20:44 No Known Allergies; kg - Home Meds: 20:44 levetiracetam 750 mg Oral tab 2 tabs twice a day [Active]; Latuda 40 mg Oral tab 1 tab kg once daily [Active]; Fycompa 8 mg Oral tab 1 tab once daily [Active]; citalopram 20 mg tab 1 tab once daily [Active]; buspirone 7.5 mg Oral tab three times a day [Active]; - PMHx: 20:44 Seizures; mental retardation; Depression; CVA (1993); BRAIN DISORDER, ONE SIDE MORE kg DEVELOPED THAN THE OTHER; Anxiety; - PSHx: 20:44 Cholecystectomy; kg - Immunization history:: Adult Immunizations up to date, Client reports receiving the 1st dose of the Covid vaccine, John \\T\\ John. - Social history:: Smoking status: Patient denies any tobacco usage or history of. Vital Signs: 20:42 BP 137 / 88; Pulse 69; Resp 18; Temp 97.2(TE); Pulse Ox 99% on R/A; Weight 78.02 kg kg (R); Height 5 ft. 5 in. (165.10 cm); Pain 0/10; 20:42 Body Mass Index 28.62 (78.02 kg, 165.10 cm) kg ED Course: 19:55 Patient arrived in ED. ds1 20:44 Triage completed. kg 20:44 Arm band placed on left wrist. kg 08/09 00:39 Patient's name was called from ER lobby. No response. Unable to locate patient. Will bb disposition as left without being seen by a provider. Administered Medications: No medications were administered Outcome: 00:41 Patient left the ED. bb Signatures: Wendy Leyva ds1 Kate White, RN RN bb Alisha Champagne, RN RN kg
[2021-05-12 01:12] VITALS: BP 137/88; TEMP 97.2; O2SAT 99
== END 2021-05-12 00:41 | disposition left against medical advice (07) ==
LOC: ER 19:46
DX: Z53.21 Procedure and treatment not carried out due to patient leaving prior to being seen by health care provider (principal)
CPT/HCPCS: 99282

== ENCOUNTER 2021-05-27 21:59 | Emergency (ER) | payer OTHER ==
--- OUTSIDE RECORDS SUMMARY | 2021-05-27 22:02 | XMS REPORT | Continuity of Care Document ---
:1985 Author Organization [facility] t Address [address] [place] [address] Care Team Providers Name Role Phone Unavailable [...] Clinicians Facility Department ID 2020-10-15 2020-10-15 Outpatient [facility] [id number] [facility] 2020-09-25 2020-09-25 Outpatient [facility] [id number] [facility] Results This patient has no known results.
[2021-05-27] MEDS ORDERED: NA CHLORIDE 0.9% 100 ML ONE (23:11)
[2021-05-27] MEDS ORDERED: LORazepam 2 MG/ML VIAL ONE (23:11)
[2021-05-27] MEDS ORDERED: NA CHLORIDE 0.9% 1,000 ML ONE (23:11)
[2021-05-27] MEDS ORDERED: LEVETIRACETAM 500 MG/5 ML VIAL IV ONE (23:11)
[2021-05-27 23:41] LABS: Absolute Lymphocytes (CBC) 2.7 K/uL (0.7-4.9); Basophils % 0.8 % (0-1.3); Lymphocytes % 41.3 % (15.3-44.8); MPV 8.8 fL (7.6-11.3); RBC Red Blood Cell Count 4.94 M/uL (4.33-5.43)
[2021-05-27 23:43] LABS: Protime INR 0.97
[2021-05-28 00:02] LABS: ALT/SGPT 28 U/L (12-78); AST/SGOT 19 U/L (15-37); Alkaline Phosphatase 78 U/L (45-117); BUN Blood Urea Nitrogen 12 mg/dL (7-18); Bicarbonate 25 mmol/L (21-32); Bilirubin Direct 0.1 mg/dL (0-0.2); Bilirubin Total 0.5 mg/dL (0.2-1.0); Glucose Level 102 mg/dL (74-106); Potassium 3.7 mmol/L (3.5-5.1); Protein, Total 7.5 g/dL (6.4-8.2); Sodium Level 142 mmol/L (136-145)
--- NOTE | 2021-05-28 01:04 | ER ---
Nurse's Notes [facility] Name: Shan Faye Age: 35 yrs Sex: Male : 1985 Arrival Date: 05/27/2021 Time: 22:08 Bed 4 Private MD: Diagnosis: Seizures Presentation: 05/27 22:09 Chief complaint: Parent and/or Guardian states: Mother stated, " He's had 5 seizures kg since 20:00. They haven't lasted very long he kind of just spaces out and then seizes. ". Coronavirus screen: Client denies travel out of the [place] in the last 14 days. At this time, unable to obtain information related to travel outside the [place] At this time, the client does not indicate any symptoms associated with coronavirus-19. Ebola Screen: Patient negative for fever greater than or equal to 101.5 degrees Fahrenheit, and additional compatible Ebola Virus Disease symptoms Patient denies exposure to infectious person. Patient denies travel to an Ebola-affected area in the 21 days before illness onset. No symptoms or risks identified at this time. Initial Sepsis Screen: Does the patient meet any 2 criteria? No. Patient's initial sepsis screen is negative. Does the patient have a suspected source of infection? No. Patient's initial sepsis screen is negative. Risk Assessment: Do you want to hurt yourself or someone else? Patient reports no desire to harm self or others. Onset of symptoms was May 27, 2021 at 20:00. 22:09 Method Of Arrival: Ambulatory kg 22:09 Acuity: PAULINE 3 kg Triage Assessment: 22:11 General: Appears in no apparent distress. Behavior is calm, cooperative, appropriate kg for age, quiet. Pain: Denies pain. Neuro: No deficits noted. Historical: - Allergies: 22:11 No Known Allergies; kg - Home Meds: 22:11 buspirone 7.5 mg Oral tab three times a day [Active]; citalopram 20 mg tab 1 tab once kg daily [Active]; Fycompa 8 mg Oral tab 1 tab once daily [Active]; Latuda 40 mg Oral tab 1 tab once daily [Active]; levetiracetam 750 mg Oral tab 2 tabs twice a day [Active]; - PMHx: 22:11 Anxiety; BRAIN DISORDER, ONE SIDE MORE DEVELOPED THAN THE OTHER; CVA (1993); kg Depression; mental retardation; Seizures; WHEELCHAIR BOUND, CAN AMBULATE WITH ASSITANCE. WEAKNESS; (no longer current. Pt ambulatory and able to perform ADL's); - PSHx: 22:11 Cholecystectomy; kg - Immunization history:: Adult Immunizations up to date, Client reports receiving the John \\T\\ John single-dose vaccine. Date received February 24, 2021. - Social history:: Smoking status: Patient denies any tobacco usage or history of. Screenin:55 Abuse screen: Denies threats or abuse. Nutritional screening: No deficits noted. ea Tuberculosis screening: No symptoms or risk factors identified. Fall Risk IV access (20 points). Assessment: 22:45 Reassessment: Witnessed seizure lasted less than 1 minute, pt placed ED bed 4. IV ea initiated, seizure precautions implemented. 22:50 General: Appears in no apparent distress. Behavior is flat. Neuro: Level of bb Consciousness is awake, listless. Cardiovascular: Capillary refill < 3 seconds Patient's skin is warm and dry. Respiratory: Airway is patent Respiratory effort is even, unlabored, Respiratory pattern is regular. GI: No signs and/or symptoms were reported involving the gastrointestinal system. Derm: Skin is pink, warm \\T\\ dry. Musculoskeletal: Circulation, motion, and sensation intact. 23:07 Reassessment: Patient and/or family updated on plan of care and expected duration. Pain ea level reassessed. Pt awakens to verbal stimulus, respirations even and unlabored, chest expansions even and symmetrical. Denies pain at this time. 05/28 00:31 Reassessment: pt appears to be sleeping, eyes closed, resp unlabored, will continue to bb monitor. IV site intact no erythema or edema noted. Vital Signs: 05/27 22:09 BP 112 / 74; Pulse 67; Resp 20; Temp 97.5(TE); Pulse Ox 99% on R/A; Weight 77.11 kg kg (R); Height 5 ft. 5 in. (165.10 cm) (R); Pain 0/10; 22:45 BP 118 / 80; Pulse 62; Resp 16 S; Pulse Ox 95% on R/A; bb 23:35 BP 119 / 78; Pulse 67; Resp 16 S; Pulse Ox 95% on R/A; bb 22:09 Body Mass Index 28.29 (77.11 kg, 165.10 cm) kg [place] Coma Score: 22:11 Eye Response: spontaneous(4). Verbal Response: oriented(5). Motor Response: obeys kg commands(6). Total: 15. ED Course: 22:08 Patient arrived in ED. cf2 22:11 Triage completed. kg 22:11 Arm band placed on right wrist. kg 22:39 Dorian Yoon MD is Attending Physician. 7 22:45 Kate White, RN is Primary Nurse. bb 22:55 Seizure precautions initiated. ea 22:56 Inserted saline lock: 20 gauge in left antecubital area, using aseptic technique. Blood ea collected. 23:38 CT Head Brain wo Cont In Process Unspecified. [facility] 05/28 01:03 Satinder Arreola MD is Referral Physician. [facility] 01:27 No provider procedures requiring assistance completed. IV discontinued, intact, bb bleeding controlled, No redness/swelling at site. Pressure dressing applied. Administered Medications: 05/27 22:50 Drug: Ativan (LORazepam) 2 mg Route: IVP; Site: left antecubital; ea 05/28 01:28 Follow up: Response: Marked relief of symptoms 05/27 22:55 Drug: NS 0.9% 1000 ml Route: IV; Rate: 1000 ml; Site: left antecubital; ea 05/28 01:28 Follow up: IV Status: Order to discontinue infusion; IV Intake: 200ml 05/27 22:55 Drug: Keppra (levETIRAcetam) 1000 mg Route: IV; Rate: per protocol; Site: left antecubital; 23:10 Follow up: IV Status: Completed infusion; IV Intake: 50ml bb Intake: 23:10 IV: 50ml; Total: 50ml. bb 05/28 01:28 IV: 200ml; Total: 250ml. bb Outcome: 01:03 Discharge ordered by . 7 01:29 Condition: stable bb 01:44 Discharged to home via wheelchair. ms4 01:44 Discharge instructions given to family. 01:45 Patient left the ED. ms4 Signatures: Dispatcher [employer] EDIL Kate White, Josephine Olivier RN, RN RN ea Frazier, Celesta cf2 Dorian Yoon MD MD mh7 Alisha Champagne RN RN kg Clarisse Baltazar RN RN ms4 Corrections: (The following items were deleted from the chart) 05/27 23:52 22:45 General: Appears bb bb
--- NOTE | 2021-05-28 01:05 | EDPHYS ---
Physician Documentation [facility] Name: Shan Faye Age: 35 yrs Sex: Male : 1985 Arrival Date: 05/27/2021 Time: 22:08 Bed 4 Private MD: ED Physician Dorian Yoon HPI: 05/27 22:35 This 35 yrs old Male presents to ER via Ambulatory with complaints of Seizure. mh7 22:35 The patient presents with a history of multiple seizures, a total of 3, that last 30 mh7 second(s), the episode(s) was witnessed, by family. 22:35 Character of seizure(s): Loss of consciousness: the patient experienced loss of mh7 consciousness, brief, Motor activity: generalized, shaking all over, blank stare, Incontinence: none, Apnea: the patient did not experience apnea, Circulation: the patient did not experience evidence of pulse disturbance, Eye movements: are unknown. 22:35 Seizure onset: today, at 20:00. Context: the seizure(s) was witnessed, by family, mh7 mother, occurred at home, occurred while the patient was sitting, Contributing factors: None. Seizure Hx: Original onset: longstanding. Associated injury: The patient did not suffer any apparent associated injury. Current symptoms: Witnessed by medical staff in the ED. The patient has experienced similar episodes in the past, chronically. Historical: - Allergies: 22:11 No Known Allergies; kg - Home Meds: 22:11 buspirone 7.5 mg Oral tab three times a day [Active]; citalopram 20 mg tab 1 tab once kg daily [Active]; Fycompa 8 mg Oral tab 1 tab once daily [Active]; Latuda 40 mg Oral tab 1 tab once daily [Active]; levetiracetam 750 mg Oral tab 2 tabs twice a day [Active]; - PMHx: 22:11 Anxiety; BRAIN DISORDER, ONE SIDE MORE DEVELOPED THAN THE OTHER; CVA (1993); kg Depression; mental retardation; Seizures; WHEELCHAIR BOUND, CAN AMBULATE WITH ASSITANCE. WEAKNESS; (no longer current. Pt ambulatory and able to perform ADL's); - PSHx: 22:11 Cholecystectomy; kg - Immunization history:: Adult Immunizations up to date, Client reports receiving the John \T\ John single-dose vaccine. Date received February 24, 2021. - Social history:: Smoking status: Patient denies any tobacco usage or history of. ROS: 22:55 Constitutional: Negative for fever, chills, and weight loss, Eyes: Negative for injury, mh7 pain, redness, and discharge, ENT: Negative for injury, pain, and discharge, Neck: Negative for injury, pain, and swelling, Cardiovascular: Negative for chest pain, palpitations, and edema, Respiratory: Negative for shortness of breath, cough, wheezing, and pleuritic chest pain, Abdomen/GI: Negative for abdominal pain, nausea, vomiting, diarrhea, and constipation, Back: Negative for injury and pain, : Negative for injury, bleeding, discharge, and swelling, MS/Extremity: Negative for injury and deformity, Skin: Negative for injury, rash, and discoloration, Psych: Negative for depression, anxiety, suicide ideation, homicidal ideation, and hallucinations, Allergy/Immunology: Negative for hives, rash, and allergies, Endocrine: Negative for neck swelling, polydipsia, polyuria, polyphagia, and marked weight changes, Hematologic/Lymphatic: Negative for swollen nodes, abnormal bleeding, and unusual bruising. Exam: 22:55 Constitutional: This is a well developed, well nourished patient who is awake, alert, mh7 and in no acute distress. Head/Face: Normocephalic, atraumatic. Eyes: Pupils equal round and reactive to light, extra-ocular motions intact. Lids and lashes normal. Conjunctiva and sclera are non-icteric and not injected. Cornea within normal limits. Periorbital areas with no swelling, redness, or edema. ENT: Nares patent. No nasal discharge, no septal abnormalities noted. Tympanic membranes are normal and external auditory canals are clear. Oropharynx with no redness, swelling, or masses, exudates, or evidence of obstruction, uvula midline. Mucous membranes moist. Neck: Trachea midline, no thyromegaly or masses palpated, and no cervical lymphadenopathy. Supple, full range of motion without nuchal rigidity, or vertebral point tenderness. No Meningismus. Chest/axilla: Normal chest wall appearance and motion. Nontender with no deformity. No lesions are appreciated. Cardiovascular: Regular rate and rhythm with a normal S1 and S2. No gallops, murmurs, or rubs. Normal PMI, no JVD. No pulse deficits. Respiratory: Lungs have equal breath sounds bilaterally, clear to auscultation and percussion. No rales, rhonchi or wheezes noted. No increased work of breathing, no retractions or nasal flaring. Abdomen/GI: Soft, non-tender, with normal bowel sounds. No distension or tympany. No guarding or rebound. No evidence of tenderness throughout. Back: No spinal tenderness. No costovertebral tenderness. Full range of motion. Skin: Warm, dry with normal turgor. Normal color with no rashes, no lesions, and no evidence of cellulitis. MS/ Extremity: Pulses equal, no cyanosis. Neurovascular intact. Full, normal range of motion. Psych: Awake, alert, with orientation to person, place and time. Behavior, mood, and affect are within normal limits. Vital Signs: 22:09 BP 112 / 74; Pulse 67; Resp 20; Temp 97.5(TE); Pulse Ox 99% on R/A; Weight 77.11 kg kg (R); Height 5 ft. 5 in. (165.10 cm) (R); Pain 0/10; 22:45 BP 118 / 80; Pulse 62; Resp 16 S; Pulse Ox 95% on R/A; bb 23:35 BP 119 / 78; Pulse 67; Resp 16 S; Pulse Ox 95% on R/A; bb 22:09 Body Mass Index 28.29 (77.11 kg, 165.10 cm) kg [place] Coma Score: 22:11 Eye Response: spontaneous(4). Verbal Response: oriented(5). Motor Response: obeys kg commands(6). Total: 15. MDM: 22:55 Differential diagnosis: drug overdose, cardiac arrhythmia, seizure. Data reviewed: [facility] vital signs, nurses notes, lab test result(s), CBC, electrolytes, urinalysis, radiologic studies, CT scan. Data interpreted: Pulse oximetry: on room air is 95 %. Interpretation: normal. Counseling: I had a detailed discussion with the patient and/or guardian regarding: the historical points, exam findings, and any diagnostic results supporting the discharge/admit diagnosis, lab results, radiology results, the need for outpatient follow up, a neurologist, to return to the emergency department if symptoms worsen or persist or if there are any questions or concerns that arise at home. Response to treatment: the patient's symptoms have resolved after treatment, the patient's blood pressure is in an acceptable range, mental status has returned to baseline, the patient no longer shows bradycardia, the patient is not short of breath, the patient is not tachycardic, the patient's pain is gone, the patient's temperature has normalized, the patient is now symptom free, patient is well hydrated. 05/28 01:03 Patient medically screened. [facility] 05/27 22:44 Order name: Acetaminophen [facility] 05/27 22:44 Order name: Basic Metabolic Panel [facility] 05/27 22:44 Order name: CBC with Diff [facility] 05/27 22:44 Order name: ETOH Level; Complete Time: 00:06 [facility] 05/27 22:44 Order name: Hepatic Function; Complete Time: 00:06 [facility] 05/27 22:44 Order name: PT-INR; Complete Time: 23:54 [facility] 05/27 22:44 Order name: Ptt, Activated; Complete Time: 23:54 [facility] 05/27 22:44 Order name: Salicylate; Complete Time: 00:06 [facility] 05/27 22:44 Order name: CT Head Brain wo Cont [facility] 05/27 22:44 Order name: Acetaminophen Level; Complete Time: 00:06 [facility] 05/27 22:44 Order name: Basic Metabolic Panel; Complete Time: 00:06 [facility] 05/27 22:44 Order name: CBC with Automated Diff; Complete Time: 23:42 [facility] 05/27 22:44 Order name: EKG; Complete Time: 22:45 [facility] 05/27 22:44 Order name: EKG - Nurse/Tech; Complete Time: 23:15 [facility] 05/27 22:44 Order name: IV Saline Lock; Complete Time: 22:55 [facility] 05/27 22:44 Order name: Labs collected and sent; Complete Time: 22:55 [facility] Administered Medications: 05/27 22:50 Drug: Ativan (LORazepam) 2 mg Route: IVP; Site: left antecubital; 05/28 01:28 Follow up: Response: Marked relief of symptoms 05/27 22:55 Drug: NS 0.9% 1000 ml Route: IV; Rate: 1000 ml; Site: left antecubital; 05/28 01:28 Follow up: IV Status: Order to discontinue infusion; IV Intake: 200ml bb 05/27 22:55 Drug: Keppra (levETIRAcetam) 1000 mg Route: IV; Rate: per protocol; Site: left ea antecubital; 23:10 Follow up: IV Status: Completed infusion; IV Intake: 50ml bb Disposition Summary: 05/28/21 01:03 Discharge Ordered Location: Home [facility] Problem: an acute exacerbation [facility] Symptoms: have improved [facility] Condition: Stable [facility] Diagnosis - Seizures [facility] Followup: [facility] - With: Private Physician - When: 1 - 2 days - Reason: Worsening of condition, Recheck today's complaints, Continuance of care, Re-evaluation by your physician Followup: [facility] - With: Satinder Arreola MD - When: 1 - 2 days - Reason: Worsening of condition, Recheck today's complaints Discharge Instructions: - Discharge Summary Sheet [facility] - Seizure, Adult, [id number] [facility] Forms: - Medication Reconciliation Form [facility] - Thank You Letter [facility] - Antibiotic Education [facility] - Prescription Opioid Use [facility] Prescriptions: - Keppra 750 mg Oral Tablet - take 1 tablet by ORAL route every 12 hours; 20 tablet; Refills: 0, Product [facility] Selection Permitted Signatures: Dispatcher [employer] Josephine Contreras, RN Dorian Aly ea, MD MD [facility] Alisha Champagne RN RN kg Ballard, Brenda RN bb
[2021-05-28 01:51] VITALS: TEMP 97.5
[2021-05-28 01:53] VITALS: O2SAT 95
[2021-05-28 01:54] VITALS: BP 119/78
--- NOTE | 2021-05-28 10:57 | RAD REPORT ---
EXAM DESCRIPTION: CT - Head Brain Wo Cont - 05/28/2021 6:27 am CLINICAL HISTORY: 35-year-old male with history of seizure. COMPARISON: 04/06/2021. TECHNIQUE: CT brain without contrast. This exam was performed according to our departmental dose opt imization program which includes use of automated exposure control, adjustment of the mA and/or kV ac cording to patient size and/or use of iterative reconstruction technique. 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 Stable appearance of dysmorphic appearance of the bilateral cerebellum, finding which may reflect sequela of prior including congenital development al etiology or infarction. The astorga-white matter differentiation is preserved. There is no mass effect, midline shift, intra- or extra-axial fluid collection/acute hemorrhage. The osseous structures are unremarkable. The pa ranasal sinuses and mastoid air cells are clear. IMPRESSION: No acute intracranial abnormalities. Electronically signed by: Tatyana Castellano MD 05/27/2021 11:49 PM CDT Due to temporary technical issues with the PACS/Fluency reporting system, reports are being signed by the in house radiologist without review as a courtesy to ensure prompt reporting. The interpreting r adiologist is fully responsible for the content of the report.
--- NOTE | 2021-05-28 15:38 | EKG ---
Test Date: 2021-05-27 Test Time: 23:00:37 Lean Leader: BINA MEASUREMENT RESULTS: Intervals: Rate: 70 OR: 144 QRSD: 86 QT: 412 QTc: 444 [place]: P: 43 OR: 144 QRS: 29 T: 34 INTERPRETIVE STATEMENTS: Normal sinus rhythm Normal ECG Compared to ECG 05/06/2021 04:55:18 Sinus bradycardia no longer present Electronically Signed On 05-28-21 15:36:55 CDT by Joseph Harris
== END 2021-05-28 01:45 | disposition home or self-care (01) ==
LOC: ER 21:59
DX: G40.909 Epilepsy, unspecified, not intractable, without status epilepticus (principal); F41.8 Other specified anxiety disorders; Z86.73 Personal history of transient ischemic attack (TIA), and cerebral infarction without residual deficits
CPT/HCPCS: 96361; 93005; 85025; 80048; 36415; 80320; 80329 ×2; 85610; 80076; 85730; 70450; 96375; 96374; 99284; J1953; J7030

== ENCOUNTER 2021-06-04 10:24 | Emergency (ER) | payer OTHER ==
--- OUTSIDE RECORDS SUMMARY | 2021-06-04 10:27 | XMS REPORT | Continuity of Care Document ---
:1985 Author Organization [facility] t Address [address] [place] [address] Care Team Providers Name Role Phone Unavailable [...] Clinicians Facility Department ID 2020-10-15 2020-10-15 Outpatient [facility] [id number] [facility] 00:00:00 00:00:00 [facility] ent Clinics 2020-09-25 2020-09-25 Outpatient [facility] [id number] [facility] 00:[facility] 00:00:00 [facility] ent Clinics Results This patient has no known results.
[2021-06-04 10:54] LABS: Absolute Lymphocytes (CBC) 1.7 K/uL (0.7-4.9); Basophils % 0.6 % (0-1.3); Hematocrit 40.8 % (39.6-49.0); Lymphocytes % 27.3 % (15.3-44.8); MPV 8.2 fL (7.6-11.3); RBC Red Blood Cell Count 4.82 M/uL (4.33-5.43)
[2021-06-04] MEDS ORDERED: levETIRAcetam 1,000 MG in NA CHLORIDE 0.9% 100 ML IV ONE (11:00)
[2021-06-04 11:04] LABS: BUN Blood Urea Nitrogen 11 mg/dL (7-18); Bicarbonate 27 mmol/L (21-32); Glucose Level 94 mg/dL (74-106); Potassium 3.5 mmol/L (3.5-5.1); Sodium Level 142 mmol/L (136-145)
--- NOTE | 2021-06-04 11:07 | RAD REPORT ---
EXAM DESCRIPTION: CT - Head Brain Wo Cont - 06/04/2021 10:51 am CLINICAL HISTORY: SEIZURE COMPARISON: Head Brain Wo Cont dated 05/27/2021; Head Brain Wo Cont dated 04/06/2021 TECHNIQUE: All CT scans are performed using dose optimization technique as appropriate and may inclu de automated exposure control or mA/KV adjustment according to patient size. FINDINGS: Skull: No skull fracture. No mastoid effusion. Sinuses: Left maxillary sinus mucous retention cyst. Brain: No acute intracranial hemorrhage. No mass effect or midline shift. No hydrocephalus. No acute large vascular territory infarcts identified. No significant white matter disease. Similar areas of e ncephalomalacia as well as a pankaj cisterna magna at the cerebellum. IMPRESSION: No acute intracranial abnormality.
--- NOTE | 2021-06-04 12:22 | RAD REPORT ---
EXAM DESCRIPTION: RAD - Chest Single View - 06/04/2021 12:01 pm CLINICAL HISTORY: seizure COMPARISON: Chest Single View dated 05/06/2021; Chest Single View dated 04/06/2021; Chest Single View da genevieve 09/20/2020; Chest Single View dated 09/19/2020 FINDINGS: Lines: None. Lungs: No evidence of edema or pneumonia. Pleural: No significant pleural effusions or pneumothorax. Cardiac: The heart size is within normal limits. Bones: No acute fractures. Other: IMPRESSION: No acute cardiopulmonary disease.
[2021-06-04 12:42] LABS: SARS-COV-2 RT PCR NEGATIVE (NEGATIVE)
--- NOTE | 2021-06-04 13:25 | ER ---
Nurse's Notes [facility] Name: Shan Faye Age: 35 yrs Sex: Male : 1985 Arrival Date: 06/04/2021 Time: 10:25 Bed 3 Private MD: Diagnosis: Epileptic seizures related to external causes, not intractable, without status epilepticus Presentation: 06/04 10:25 Chief complaint: EMS states: Multiple witnessed seizure activity lasting 2-3 seconds hb over last hour. Ativan 2mg to LFA 20g at 1005. Coronavirus screen: At this time, the client does not indicate any symptoms associated with coronavirus-19. Ebola Screen: No symptoms or risks identified at this time. Initial Sepsis Screen: Does the patient meet any 2 criteria? No. Patient's initial sepsis screen is negative. Does the patient have a suspected source of infection? No. Patient's initial sepsis screen is negative. Risk Assessment: Do you want to hurt yourself or someone else? Patient reports no desire to harm self or others. Onset of symptoms was June 04, 2021. 10:25 Method Of Arrival: EMS: [facility] 10:25 Acuity: PAULINE 3 hb Triage Assessment: 10:28 General: Appears in no apparent distress. Behavior is calm, cooperative. Pain: Denies hb pain. EENT: No signs and/or symptoms were reported regarding the EENT system. Neuro: Level of Consciousness is obeys commands, lethargic, Oriented to person, place, time, situation. Cardiovascular: Patient's skin is warm and dry. Respiratory: Respiratory effort is even, unlabored, Respiratory pattern is regular, symmetrical. GI: No signs and/or symptoms were reported involving the gastrointestinal system. : No signs and/or symptoms were reported regarding the genitourinary system. Derm: Skin is pink, warm \T\ dry. Musculoskeletal: No signs and/or symptoms reported regarding the musculoskeletal system. Historical: - Allergies: 10:27 No Known Drug Allergies; hb - Home Meds: 10:27 buspirone 7.5 mg Oral tab three times a day [Active]; citalopram 20 mg tab 1 tab once hb daily [Active]; Fycompa 8 mg Oral tab 1 tab once daily [Active]; Latuda 40 mg Oral tab 1 tab once daily [Active]; levetiracetam 750 mg Oral tab 2 tabs twice a day [Active]; - PMHx: 10:27 Anxiety; BRAIN DISORDER, ONE SIDE MORE DEVELOPED THAN THE OTHER; CVA (1993); hb Depression; mental retardation; Seizures; WHEELCHAIR BOUND, CAN AMBULATE WITH ASSITANCE. WEAKNESS; (no longer current. Pt ambulatory and able to perform ADL's); - PSHx: 10:27 Cholecystectomy; hb - Immunization history:: Adult Immunizations up to date. - Social history:: Smoking status: Patient denies any tobacco usage or history of. - Family history:: not pertinent. - History obtained from: EMS. Screenin:29 Abuse screen: Denies threats or abuse. Denies injuries from another. Nutritional hb screening: No deficits noted. Tuberculosis screening: No symptoms or risk factors identified. Fall Risk Total English Fall Scale indicates Low Risk Score (25-44 pts). Fall prevention measures have been instituted. Side Rails Up X 2 Frequent Obs/Assesments occuring As available Patient and Family Educated on Fall Prevention Program and strategies. Assessment: 10:29 General: see triage assessment . hb 11:30 Reassessment: Patient appears in no apparent distress at this time. No changes from hb previously documented assessment. Patient and/or family updated on plan of care and expected duration. Pain level reassessed. 12:30 Reassessment: Patient appears in no apparent distress at this time. No changes from hb previously documented assessment. Patient and/or family updated on plan of care and expected duration. Pain level reassessed. 13:16 Reassessment: Patient appears in no apparent distress at this time. No changes from hb previously documented assessment. Patient and/or family updated on plan of care and expected duration. Pain level reassessed. Vital Signs: 10:25 BP 124 / 84; Pulse 75; Resp 18; Temp 97.9; Pulse Ox 93% on R/A; Pain 0/10; hb 13:16 BP 127 / 78; Pulse 70; Resp 16; Pulse Ox 98% ; hb [place] Coma Score: 10:28 Eye Response: to voice(3). Verbal Response: oriented(5). Motor Response: obeys hb commands(6). Total: 14. ED Course: 10:25 Patient arrived in ED. ds1 10:27 Triage completed. hb 10:27 Jose Eduardo Momin MD is Attending Physician. rn 10:27 Arm band placed on. hb 10:29 Patient has correct armband on for positive identification. Bed in low position. Call hb light in reach. Side rails up X2. Seizure precautions initiated. 10:50 CT Head Brain wo Cont In Process Unspecified. EDMS 11:31 Maria Justice, RN is Primary Nurse. hb 11:56 X-ray completed. Portable x-ray completed in exam room. Patient tolerated procedure md1 well. 12:01 XRAY Chest (1 view) In Process Unspecified. EDMS Administered Medications: 11:32 Drug: Keppra (levETIRAcetam) 1000 mg Route: IV; Rate: calculated rate; Site: left antecubital; Outcome: 13:25 Discharge ordered by . rn 13:41 Patient left the ED. hb Signatures: Dispatcher [employer] EDNY Wendy Leyva ds1 Jose Eduardo Momin MD MD rn Baxter, Heather, RN RN Clarisse Coronado md1
--- NOTE | 2021-06-04 13:25 | EDPHYS ---
Physician Documentation [facility] Name: Shan Faye Age: 35 yrs Sex: Male : 1985 Arrival Date: 06/04/2021 Time: 10:25 Bed 3 Private MD: ED Physician Jose Eduardo Momin HPI: 06/04 10:34 This 35 yrs old Male presents to ER via EMS with complaints of Seizure. rn 10:34 The patient presents with a history of multiple seizures, an unknown number. The rn patient presents the episode(s) was witnessed, by EMS personnel, by family. Character of seizure(s): Loss of consciousness: the patient did not lose consciousness, Motor activity: generalized, Incontinence: none, Apnea: the patient did not experience apnea, Circulation: the patient did not experience evidence of pulse disturbance. Seizure onset: this morning. Seizure Hx: Seizure medications: Keppra. Associated injury: The patient did not suffer any apparent associated injury. EMS care: Ativan, 2 mg(s), IV, with resolution of the seizure. Current symptoms: decreased level of consciousness. The patient has experienced similar episodes in the past. It is unknown whether or not the patient has recently seen a physician. Per EMS, patient with several seizures that began this morning. Patient with known seizure disorder. Takes Keppra. Unknown if missed any doses. EMS reports seizure was witnessed by family. EMS reports seizure-like activity, several episodes reports possibly up to 12 seizures but states it seemed to be in periods of 3 at a time so possibly four total. Given 2 mg of Ativan with resolution and patient now somnolent but awakens to voice and answers questions.. Historical: - Allergies: 10:27 No Known Drug Allergies; hb - Home Meds: 10:27 buspirone 7.5 mg Oral tab three times a day [Active]; citalopram 20 mg tab 1 tab once hb daily [Active]; Fycompa 8 mg Oral tab 1 tab once daily [Active]; Latuda 40 mg Oral tab 1 tab once daily [Active]; levetiracetam 750 mg Oral tab 2 tabs twice a day [Active]; - PMHx: 10:27 Anxiety; BRAIN DISORDER, ONE SIDE MORE DEVELOPED THAN THE OTHER; CVA (1993); hb Depression; mental retardation; Seizures; WHEELCHAIR BOUND, CAN AMBULATE WITH ASSITANCE. WEAKNESS; (no longer current. Pt ambulatory and able to perform ADL's); - PSHx: 10:27 Cholecystectomy; hb - Immunization history:: Adult Immunizations up to date. - Social history:: Smoking status: Patient denies any tobacco usage or history of. - Family history:: not pertinent. - History obtained from: EMS. ROS: 10:36 Unable to obtain ROS due to altered mental status. rn Exam: 10:36 Constitutional: Somnolent, awakens easily to voice and tactile stimulation Head/Face: rn Normocephalic, atraumatic. ENT: No oral trauma or tongue laceration noted Neck: Trachea midline, no masses palpated, and no cervical lymphadenopathy. No Meningismus. Cardiovascular: Regular rate and rhythm. No pulse deficits. Respiratory: No increased work of breathing, no retractions or nasal flaring. Abdomen/GI: Soft, non-tender Skin: Warm, dry MS/ Extremity: Pulses equal, no cyanosis. Neuro: Somnolent, awakens to voice, answers some questions with shaking head. Vital Signs: 10:25 BP 124 / 84; Pulse 75; Resp 18; Temp 97.9; Pulse Ox 93% on R/A; Pain 0/10; hb 13:16 BP 127 / 78; Pulse 70; Resp 16; Pulse Ox 98% ; hb Burwell Coma Score: 10:28 Eye Response: to voice(3). Verbal Response: oriented(5). Motor Response: obeys hb commands(6). Total: 14. MDM: 10:28 Patient medically screened. rn 13:23 Differential diagnosis: seizure. Differential diagnosis: cardiac arrhythmia. Data rn reviewed: vital signs, nurses notes. Data reviewed: lab test result(s), EKG, radiologic studies, CT scan, plain films, and as a result, I will discharge patient. 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 Interpretation: normal. Test interpretation: by ED physician or midlevel provider: ECG, plain radiologic studies, Chest x-ray negative for acute infiltrate or pneumothorax. Counseling: I had a detailed discussion with the patient and/or guardian regarding: the historical points, exam findings, and any diagnostic results supporting the discharge/admit diagnosis, lab results, radiology results, the need for outpatient follow up, to return to the emergency department if symptoms worsen or persist or if there are any questions or concerns that arise at home. Response to treatment: the patient's symptoms have markedly improved after treatment, the patient's condition has returned to base line, the patient is now symptom free, and as a result, I will discharge patient. Special discussion: I discussed with the patient/guardian in detail that at this point there is no indication for admission to the hospital. It is understood, however, that if the symptoms persist or worsen the patient needs to return immediately for re-evaluation. ED course: Patient back to baseline, mother here to take him home, observed for several hours without any further seizures. CT head and chest x-ray without acute findings. EKG without ischemia. Blood work and procalcitonin unremarkable. Will DC home. 06/04 10:32 Order name: CBC with Diff rn 06/04 10:32 Order name: Basic Metabolic Panel; Complete Time: 11:25 rn 06/04 10:32 Order name: Procalcitonin; Complete Time: 11:25 rn 06/04 10:32 Order name: CBC with Automated Diff; Complete Time: 11:25 EDMS 06/04 10:32 Order name: IV Start; Complete Time: 10:45 rn 06/04 10:32 Order name: XRAY Chest (1 view); Complete Time: 12:32 rn 06/04 10:32 Order name: EKG; Complete Time: 10:32 rn 06/04 10:32 Order name: EKG - Nurse/Tech; Complete Time: 10:44 rn 06/04 10:32 Order name: Glucose Level; Complete Time: 11:02 rn 06/04 10:36 Order name: CT Head Brain wo Cont; Complete Time: 11:25 rn 06/04 12:42 Order name: COVID-19/FLU A+B; Complete Time: 13:20 EDMS Administered Medications: 11:32 Drug: Keppra (levETIRAcetam) 1000 mg Route: IV; Rate: calculated rate; Site: left hb antecubital; Disposition Summary: 06/04/21 13:25 Discharge Ordered Location: Home rn Problem: an acute exacerbation rn Symptoms: have improved rn Condition: Stable rn Diagnosis - Epileptic seizures related to external causes, not intractable, without status rn epilepticus Followup: rn - With: Private Physician - When: As needed - Reason: Recheck today's complaints, Re-evaluation by your physician Discharge Instructions: - Discharge Summary Sheet rn - Epilepsy rn - Seizure, Adult rn Forms: - Medication Reconciliation Form rn - Thank You Letter rn - 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 EDMS EDMS 11:55 10:33 Influenza Screen (A \T\ B)+BA.LAB.BRZ ordered. EDMS EDMS
[2021-06-04 13:46] VITALS: TEMP 97.9
[2021-06-04 13:47] VITALS: BP 127/78; O2SAT 98
== END 2021-06-04 13:41 | disposition home or self-care (01) ==
LOC: ER 10:24
DX: G40.509 Epileptic seizures related to external causes, not intractable, without status epilepticus (principal); Z20.822 Contact with and (suspected) exposure to COVID-19; Q02 Microcephaly; F79 Unspecified intellectual disabilities
CPT/HCPCS: 93005; 85025; 80048; 36415; 84145; 0240U; 70450; 71045; 96374; 99283; J1953

== ENCOUNTER 2021-07-11 21:24 | Emergency (ER) | payer OTHER ==
[2021-07-11 22:44] LABS: Urine Blood Negative (Negative); Urine Glucose Negative (Negative); Urine Protein Negative (Negative); Urine Specific Gravity >=1.030 (1.005-1.030); Urine pH 5.5 (5.0-7.0)
[2021-07-11 22:47] LABS: Absolute Lymphocytes (CBC) 2.6 K/uL (0.7-4.9); Basophils % 0.5 % (0-1.3); Hematocrit 39.4 % (39.6-49.0); Lymphocytes % 37.5 % (15.3-44.8); RBC Red Blood Cell Count 4.67 M/uL (4.33-5.43)
[2021-07-11 22:57] LABS: Urine Bacteria 20-50 /HPF (NONE SEEN); Urine RBC NONE SEEN /HPF (NONE SEEN)
[2021-07-11 22:58] LABS: Urine Mucus 2+ /HPF (NONE SEEN)
[2021-07-11 22:59] LABS: ALT/SGPT 24 U/L (12-78); AST/SGOT 21 U/L (15-37); Albumin 4.1 g/dL (3.4-5.0); Alkaline Phosphatase 59 U/L (45-117); BUN Blood Urea Nitrogen 16 mg/dL (7-18); Bicarbonate 27 mmol/L (21-32); Bilirubin Direct 0.2 mg/dL (0-0.2); Bilirubin Total 0.7 mg/dL (0.2-1.0); Glucose Level 97 mg/dL (74-106); Lipase 83 U/L (73-393); Potassium 3.3 mmol/L (3.5-5.1); Protein, Total 7.1 g/dL (6.4-8.2); Sodium Level 142 mmol/L (136-145)
[2021-07-11] MEDS ORDERED: NA CHLORIDE 0.9% 1,000 ML ONE (23:00)
[2021-07-11] MEDS ORDERED: KETOROLAC 30 MG/ML INJ ONE (23:00)
[2021-07-11] MEDS ORDERED: levETIRAcetam 500 MG TAB ONE (23:33)
[2021-07-11] MEDS ORDERED: LORazepam 2 MG/ML VIAL ONE (23:33)
[2021-07-12] MEDS ORDERED: POTASSIUM 25 MEQ EFFERV TAB ONE (00:43)
[2021-07-12] MEDS ORDERED: CEFTRIAXONE 1000 MG/VIAL ONE (00:43)
--- NOTE | 2021-07-12 00:46 | ER ---
Nurse's Notes [facility] Name: Shan Faye Age: 35 yrs Sex: Male : 1985 Arrival Date: 07/11/2021 Time: 21:30 Bed 2 Private MD: Diagnosis: Calculus of kidney-left;UTI/ Urinary tract infection, site not specified Presentation: 07/11 21:33 Chief complaint: Patient states: Pt c/o lower back pain that began about two weeks ago. vg1 States pain upon urination that began yesterday, denies blood in urine, denies NV. States 'I feel a little bit dizzy'. Coronavirus screen: Vaccine status: Patient reports receiving the 2nd dose of the covid vaccine. Ebola Screen: Patient negative for fever greater than or equal to 101.5 degrees Fahrenheit, and additional compatible Ebola Virus Disease symptoms. Initial Sepsis Screen: Does the patient meet any 2 criteria? No. Patient's initial sepsis screen is negative. Does the patient have a suspected source of infection? No. Patient's initial sepsis screen is negative. Risk Assessment: Do you want to hurt yourself or someone else? Patient reports no desire to harm self or others. Onset of symptoms was July 10, 2021. 21:33 Method Of Arrival: Ambulatory vg1 21:33 Acuity: PAULINE 3 vg1 Triage Assessment: 21:36 General: Appears in no apparent distress. uncomfortable, Behavior is calm, cooperative. vg1 Pain: Complains of pain in back. Musculoskeletal: Circulation, motion, and sensation intact. Historical: - Allergies: 21:36 No Known Allergies; vg1 - Home Meds: 21:36 buspirone 7.5 mg Oral tab three times a day [Active]; Fycompa 8 mg Oral tab 1 tab once vg1 daily [Active]; Latuda 40 mg Oral tab 1 tab once daily [Active]; levetiracetam 750 mg Oral tab 2 tabs twice a day [Active]; - PMHx: 21:36 Anxiety; BRAIN DISORDER, ONE SIDE MORE DEVELOPED THAN THE OTHER; CVA (1993); vg1 Depression; mental retardation; Seizures; - PSHx: 21:36 Cholecystectomy; vg1 - Immunization history:: Adult Immunizations up to date, Client reports receiving the 2nd dose of the Covid vaccine. - Social history:: Smoking status: Patient denies any tobacco usage or history of. Screenin:01 Abuse screen: Denies threats or abuse. Nutritional screening: No deficits noted. ea Tuberculosis screening: No symptoms or risk factors identified. Fall Risk IV access (20 points). Assessment: 07/12 00:25 Pain: Complains of pain in back. Neuro: Reports seizure x4 unwitnessed. Neuro: Level of ms4 Consciousness is awake, alert, obeys commands. Cardiovascular: No deficits noted. Respiratory: No deficits noted. GI: No deficits noted. : Reports burning with urination. Vital Signs: 07/11 21:33 BP 115 / 78; Pulse 69; Resp 16; Temp 98.5; Pulse Ox 100% ; Weight 76.2 kg; Height 5 ft. vg1 5 in. (165.10 cm); Pain 9/10; 07/12 00:26 BP 120 / 98; Pulse 57; Resp 16; Pulse Ox 100% on R/A; Pain 0/10; ms4 07/11 21:33 Body Mass Index 27.96 (76.20 kg, 165.10 cm) vg1 ED Course: 07/11 21:30 Patient arrived in ED. ja2 21:36 Triage completed. vg1 21:36 Arm band placed on. vg1 21:47 Isaiah Hannah PA is PHCP. cp 21:47 Rudy Alcala MD is Attending Physician. cp 22:01 Inserted saline lock: 20 gauge in right antecubital area, using aseptic technique. ea 22:47 Basic Metabolic Panel Sent. ms4 22:47 CBC with Diff Sent. ms4 23:45 CT Abd/Pelvis - IV Contrast Only In Process Unspecified. EDMS 10 00:59 Patient has correct armband on for positive identification. ms4 00:59 No provider procedures requiring assistance completed. IV discontinued, intact, ms4 bleeding controlled. Administered Medications: 07/11 22:40 Drug: NS 0.9% 1000 ml Route: IV; Rate: 1 bolus; Site: right antecubital; ms4 22:40 Drug: Ketorolac 15 mg Route: IVP; Site: right antecubital; ms4 23:07 CANCELLED (Physician Discretion): Rocephin (cefTRIAXone) 1 grams IV at calculated rate cp once; Given slow IV push per pharmacy instructions 23:13 Drug: Ativan (LORazepam) 1 mg Route: IVP; Site: right antecubital; ms4 23:13 Drug: Keppra (levETIRAcetam) 750 mg Route: PO; ms4 07/12 00:23 Drug: Rocephin (cefTRIAXone) 1 grams Route: IV; Rate: calculated rate; Site: right ms4 antecubital; 00:23 Drug: Potassium Effervescent Tablet 50 mEq Route: PO; ms4 00:59 Drug: Lidoderm Patch 5 % (700 mg/patch) 1 patches Route: Topical; Site: affected area; ms4 Outcome: 00:46 Discharge ordered by . tg 00:59 Discharged to home ambulatory. ms4 00:59 Condition: stable 00:59 Discharge instructions given to family, Instructed on discharge instructions, follow up and referral plans. Demonstrated understanding of instructions, follow-up care, Prescriptions given X 4. 01:00 Patient left the ED. ms4 Signatures: Dispatcher [employer] EDMS Isaiah Hannah PA PA cp Antunez, Elena, RN RN ea Garcia, Victoria, RN RN vg1 Clarisse Baltazar RN RN ms4 Meaghan Yo
--- NOTE | 2021-07-12 00:46 | EDPHYS ---
Physician Documentation [facility] Name: Shan Faye Age: 35 yrs Sex: Male : 1985 Arrival Date: 07/11/2021 Time: 21:30 Bed 2 Private MD: ED Physician Rudy Alcala HPI: 07/11 22:15 This 35 yrs old Male presents to ER via Ambulatory with complaints of Back cp Pain, Headache. 22:15 The patient presents with pain that is acute, with no known mechanism of injury. The cp symptoms are located in the low back area and mid back area. 22:15 Onset: The symptoms/episode began/occurred 2 week(s) ago. cp 22:15 The pain does not radiate. Associated signs and symptoms: Pertinent positives: dysuria cp that started yesterday, Pertinent negatives: abdominal pain, chest pain, constipation, fever, incontinence, numbness, weakness. The problem was sustained from unknown cause. Severity of symptoms: in the emergency department the symptoms are unchanged, despite home interventions. Historical: - Allergies: 21:36 No Known Allergies; vg1 - Home Meds: 21:36 buspirone 7.5 mg Oral tab three times a day [Active]; Fycompa 8 mg Oral tab 1 tab once vg1 daily [Active]; Latuda 40 mg Oral tab 1 tab once daily [Active]; levetiracetam 750 mg Oral tab 2 tabs twice a day [Active]; - PMHx: 21:36 Anxiety; BRAIN DISORDER, ONE SIDE MORE DEVELOPED THAN THE OTHER; CVA (1993); vg1 Depression; mental retardation; Seizures; - PSHx: 21:36 Cholecystectomy; vg1 - Immunization history:: Adult Immunizations up to date, Client reports receiving the 2nd dose of the Covid vaccine. - Social history:: Smoking status: Patient denies any tobacco usage or history of. ROS: 22:20 Constitutional: Negative for body aches, chills, fever, poor PO intake. cp 22:20 Eyes: Negative for injury, pain, redness, and discharge. cp 22:20 Cardiovascular: Negative for chest pain, edema, palpitations. 22:20 Respiratory: Negative for cough, shortness of breath, wheezing. cp 22:20 Abdomen/GI: Negative for abdominal pain, nausea, vomiting, and diarrhea. 22:20 Back: Positive for pain at rest, pain with movement, of the low back area and mid back area. 22:20 ENT: Negative for ear pain, sore throat, difficulty swallowing, difficulty handling cp secretions. 22:20 : Positive for burning with urination, Negative for testicular pain 22:20 Neuro: Negative for altered mental status, headache, numbness, tingling, weakness. 22:20 All other systems are negative. Exam: 22:25 Constitutional: The patient appears in no acute distress, alert, awake, non-toxic, well cp developed, well nourished, uncomfortable. 22:25 Head/Face: Normocephalic, atraumatic. cp 22:25 Eyes: Periorbital structures: appear normal, Conjunctiva: normal, no exudate, no injection, Sclera: no appreciated abnormality, Lids and lashes: appear normal, bilaterally. 22:25 ENT: External ear(s): are unremarkable, Nose: is normal, Mouth: Lips: moist, Oral mucosa: moist, Posterior pharynx: Airway: no evidence of obstruction, patent. 22:25 Neck: ROM/movement: is normal, is supple, without pain, no range of motions limitations, no meningismus. 22:25 Chest/axilla: Inspection: normal, Palpation: is normal, no crepitus, no tenderness. 22:25 Cardiovascular: Rate: normal, Rhythm: regular. 22:25 Respiratory: the patient does not display signs of respiratory distress, Respirations: normal, no use of accessory muscles, no retractions, labored breathing, is not present, Breath sounds: are clear throughout, no decreased breath sounds. 22:25 Abdomen/GI: Inspection: abdomen appears normal, Bowel sounds: active, all quadrants, Palpation: abdomen is soft and non-tender, in all quadrants. 22:25 Back: pain, that is severe, of the low back area and mid back area, ROM is painful, with flexion, Straight leg raises: of both lower extremities does not illicit pain. 22:25 Neuro: Orientation: no acute changes, per family, Mentation: no acute changes, per family, Motor: moves all fours, strength is normal, Sensation: is normal, Deep tendon reflexes are 2+ (normal) in the right patellar, right Achilles, left patellar and left Achilles. Vital Signs: 21:33 BP 115 / 78; Pulse 69; Resp 16; Temp 98.5; Pulse Ox 100% ; Weight 76.2 kg; Height 5 ft. vg1 5 in. (165.10 cm); Pain 9/10; 07/12 00:26 BP 120 / 98; Pulse 57; Resp 16; Pulse Ox 100% on R/A; Pain 0/10; ms4 07/11 21:33 Body Mass Index 27.96 (76.20 kg, 165.10 cm) vg1 MDM: 07/11 22:02 Patient medically screened. cp 23:00 Differential diagnosis: Cholelithiasis Pyelonephritis ruptured disc, Ureterolithiasis cp vertebral fracture. 07/12 00:45 Data reviewed: vital signs, nurses notes, lab test result(s), radiologic studies, CT cp scan. 00:45 Counseling: I had a detailed discussion with the patient and/or guardian regarding: the cp historical points, exam findings, and any diagnostic results supporting the discharge/admit diagnosis, lab results, radiology results, to return to the emergency department if symptoms worsen or persist or if there are any questions or concerns that arise at home. Response to treatment: the patient's symptoms have markedly improved after treatment. 07/11 22:08 Order name: Basic Metabolic Panel cp 07/11 22:08 Order name: CBC with Diff cp 07/11 22:08 Order name: Hepatic Function; Complete Time: 23:05 cp 07/11 22:08 Order name: Lipase; Complete Time: 23:05 cp 07/11 22:08 Order name: Urine Microscopic Only; Complete Time: 23:05 cp 07/11 23:05 Interpretation: Abnormal: UBACT 20-50. cp 07/11 22:09 Order name: Basic Metabolic Panel; Complete Time: 23:05 EDMS 07/11 23:05 Interpretation: Normal except: K 3.3; CL 110. cp 07/11 22:09 Order name: CBC with Automated Diff; Complete Time: 23:05 EDMS 07/11 23:26 Interpretation: Normal except: HGB 13.3; HCT 39.4. cp 07/11 22:44 Order name: Urine Dipstick-Ancillary; Complete Time: 22:53 EDMS 07/11 22:53 Interpretation: Reviewed. cp 07/11 22:55 Order name: CT Abd/Pelvis - IV Contrast Only cp 07/11 22:59 Order name: Urine Culture EDMS 07/11 23:01 Order name: Glucose, Ancillary Testing EDMS 07/11 23:06 Order name: Urine Culture cp 07/11 22:08 Order name: IV Saline Lock; Complete Time: 22:47 cp 07/11 22:08 Order name: Labs collected and sent; Complete Time: 22:47 cp 07/11 22:08 Order name: Urine Dipstick-Ancillary (obtain specimen); Complete Time: 22:40 cp 07/11 22:09 Order name: Accucheck Blood Glucose; Complete Time: 22:52 cp 07/12 00:30 Order name: PO challenge; Complete Time: 00:31 cp Administered Medications: 07/11 22:40 Drug: NS 0.9% 1000 ml Route: IV; Rate: 1 bolus; Site: right antecubital; ms4 22:40 Drug: Ketorolac 15 mg Route: IVP; Site: right antecubital; ms4 23:07 CANCELLED (Physician Discretion): Rocephin (cefTRIAXone) 1 grams IV at calculated rate cp once; Given slow IV push per pharmacy instructions 23:13 Drug: Ativan (LORazepam) 1 mg Route: IVP; Site: right antecubital; ms4 23:13 Drug: Keppra (levETIRAcetam) 750 mg Route: PO; ms4 07/12 00:23 Drug: Rocephin (cefTRIAXone) 1 grams Route: IV; Rate: calculated rate; Site: right ms4 antecubital; 00:23 Drug: Potassium Effervescent Tablet 50 mEq Route: PO; ms4 00:59 Drug: Lidoderm Patch 5 % (700 mg/patch) 1 patches Route: Topical; Site: affected area; ms4 Disposition Summary: 07/12/21 00:46 Discharge Ordered Location: Home cp Problem: new cp Symptoms: have improved cp Condition: Stable cp Diagnosis - Calculus of kidney - left cp - UTI/ Urinary tract infection, site not specified cp Followup: cp - With: Private Physician - When: 2 - 3 days - Reason: Recheck today's complaints Discharge Instructions: - Discharge Summary Sheet cp - Kidney Stones cp - Urinary Tract Infection, Adult cp Forms: - Medication Reconciliation Form cp - Thank You Letter cp - Antibiotic Education cp - Prescription Opioid Use cp - Work release form bb Prescriptions: - Ibuprofen 800 mg Oral Tablet - take 1 tablet by ORAL route every 8 hours As needed take with food; 30 tablet; cp Refills: 0, Product Selection Permitted - Zofran 4 mg Oral Tablet - take 1 tablet by ORAL route every 12 hours As needed; 20 tablet; Refills: 0, cp Product Selection Permitted - Lidoderm 5 % Topical adhesive patch,medicated - apply 1 patch by TOPICAL route once daily; 1 box; Refills: 0, Product Selection cp Permitted - cefpodoxime 200 mg Oral Tablet - take 1 tablet by ORAL route every 12 hours for 7 days with food; 14 tablet; cp Refills: 0, Product Selection Permitted Signatures: Dispatcher [employer] EDMS Isaiah Hannah PA PA cp Garcia, Victoria RN RN vg1 Clarisse Baltazar RN RN ms4 Corrections: (The following items were deleted from the chart) 07/11 23:07 23:06 Rocephin (cefTRIAXone) 1 grams IV at calculated rate once; Given slow IV push per cp pharmacy instructions ordered. cp
[2021-07-12] MEDS ORDERED: LIDOCAINE 4% PATCH ONE (01:15)
[2021-07-12 01:18] VITALS: TEMP 98.5; O2SAT 100
[2021-07-12 01:19] VITALS: BP 120/98
--- NOTE | 2021-07-13 19:28 | RAD REPORT ---
EXAM DESCRIPTION: Abdomen Pelvis W Contrast RadLex: CT ABDOMEN PELVIS WITH IV CONTRAST CLINICAL HISTORY: Back pain;Abd pain. COMPARISON: None. TECHNIQUE: CT of the abdomen and pelvis was performed following intravenous administration of iodina genevieve contrast. Arterial phase images through the abdomen, and portal venous phase images through the a bdomen and pelvis were obtained. Oral contrast was not administered. Axial, coronal, and sagittal sof t tissue window reconstructions were created and sent to PACS. This exam was performed according to our departmental dose-optimization program, which includes autom ated exposure control, adjustment of the mA and/or kV according to patient size and/or use of iterati ve reconstruction technique. FINDINGS: Thoracic: No significant abnormality. Hepatobiliary: No concerning hepatic lesion identified. The portal veins are patent. The gallbladder is surgically absent. No biliary ductal dilatation. Pancreas: Unremarkable. Spleen: Unremarkable. Gastrointestinal: No evidence of bowel obstruction or perienteric inflammation. The appendix is fatmata l. Adrenals: No abnormality identified in either adrenal gland. Renal: Few small bilateral renal hypodensities, too small to accurately characterize but statisticall y likely cysts. No concerning parenchymal abnormality in either kidney. Two punctate calculi in the i nferior left kidney. No hydronephrosis or ureteral calculi bilaterally. Bladder/Reproductive: Unremarkable appearance of the urinary bladder by CT technique. Vascular/Lymphatics: No lymphadenopathy identified by CT size criteria. The major visceral vessels ar e patent. Abdominal aorta is normal in caliber. Musculoskeletal: No concerning osseous lesion identified. Fluid / peritoneum: No significant free fluid. No free intraperitoneal air identified. IMPRESSION 1. No acute abnormality identified in the abdomen or pelvis by CT. 2. Two punctate nonobstructive left renal calculi. No hydronephrosis or ureteral calculi bilaterall y. 3. Few small bilateral renal hypodensities, likely cysts. Electronically signed by: Yana Cabrera MD 07/12/2021 12:01 AM CDT Due to temporary technical issues with the PACS/Fluency reporting system, reports are being signed by the in house radiologists without review as a courtesy to insure prompt reporting. The interpreting radiologist is fully responsible for the content of the report.
== END 2021-07-12 01:00 | disposition home or self-care (01) ==
LOC: ER 21:24
DX: N20.0 Calculus of kidney (principal); N39.0 Urinary tract infection, site not specified; G40.909 Epilepsy, unspecified, not intractable, without status epilepticus; F32.A Depression, unspecified
CPT/HCPCS: 87088; 85025; 87086; 80048; 36415; 82947; 80076; 83690; 74177; 96375; 96374; 99284; Q9967; J7030; 81003; 81015

== ENCOUNTER 2021-08-27 21:47 | Emergency (ER) | payer OTHER ==
--- OUTSIDE RECORDS SUMMARY | 2021-08-27 21:50 | XMS REPORT | Continuity of Care Document ---
:1985 Author Organization [facility] t Address [address] [place] [address] [address]. Franc[address] [place] [address] Care Team Providers Name Role Phone Unavailable [...] Clinicians Facility Department ID 2020-10-15 2020-10-15 Outpatient [facility] [id number] [facility] 2020-09-25 2020-09-25 Outpatient [facility] [id number] [facility] 00:[facility]:00 [facility] ent Clinics Results This patient has no known results.
--- NOTE | 2021-08-27 23:03 | EDPHYS ---
Physician Documentation [facility] Name: Shan Faye Age: 36 yrs Sex: Male : 1985 Arrival Date: 08/27/2021 Time: 21:57 Bed 8 Private MD: ED Physician Matthew Guthrie HPI: 08/27 23:05 This 36 yrs old Male presents to ER via EMS with complaints of Seizure. kdr 23:05 The patient presents with a history of multiple seizures, a total of 4, that last an kdr unknown period of time, Patient reportedly had several seizures possibly as many as 4 over short period of time. EMS was called. He was at work at the time that this occurred. EMS transported the patient to the emergency department where he arrived in stable condition and at his baseline neurologic level. His mother was here with him at the time of my interview and stated that he was back to his baseline. She also indicated that he had been staying up late and not getting good amount of sleep, the episode(s) was witnessed, by co-worker(s). Character of seizure(s): Loss of consciousness: the patient experienced loss of consciousness, Motor activity: generalized, Incontinence: none, Apnea: the patient did not experience apnea, Circulation: the patient did not experience evidence of pulse disturbance. Seizure onset: just prior to arrival, today. Context: the seizure(s) was witnessed, by co-worker(s), occurred at work, occurred while the patient was Light activity at work. His coworker sat him down so that he did not injure himself during the seizure activity. Seizure Hx: Last seizure: The patient's last seizure was approximately 2 month(s) ago, Patient has been seen here multiple times this year for recurrent seizures. He has had multiple CT examinations.. Associated injury: The patient did not suffer any apparent associated injury. EMS care: none. Current symptoms: Currently, the patient is not experiencing any symptoms, the patient feels back to baseline. The patient has experienced similar episodes in the past, chronically. The patient has not recently seen a physician. Historical: - Allergies: 22:24 No Known Allergies; df1 - Home Meds: 22:24 Keppra 750 mg Oral tab 2 tabs 2 times per day [Active]; citalopram oral [Active]; df1 - PMHx: 22:24 Anxiety; BRAIN DISORDER, ONE SIDE MORE DEVELOPED THAN THE OTHER; CVA (1993); df1 Depression; mental retardation; Seizures; WHEELCHAIR BOUND, CAN AMBULATE WITH ASSITANCE. WEAKNESS; (no longer current. Pt ambulatory and able to perform ADL's); - PSHx: 22:24 Cholecystectomy; df1 - Immunization history:: Adult Immunizations up to date. - Social history:: Smoking status: Patient denies any tobacco usage or history of. ROS: 23:05 Constitutional: Negative for fever, chills, and weight loss, Eyes: Negative for injury, kdr pain, redness, and discharge, ENT: Negative for injury, pain, and discharge, Neck: Negative for injury, pain, and swelling, Cardiovascular: Negative for chest pain, palpitations, and edema, Respiratory: Negative for shortness of breath, cough, wheezing, and pleuritic chest pain, Abdomen/GI: Negative for abdominal pain, nausea, vomiting, diarrhea, and constipation, Back: Negative for injury and pain, : Negative for injury, bleeding, discharge, and swelling, MS/Extremity: Negative for injury and deformity, Skin: Negative for injury, rash, and discoloration, Psych: Negative for depression, anxiety, suicide ideation, homicidal ideation, and hallucinations, Allergy/Immunology: Negative for hives, rash, and allergies, Endocrine: Negative for neck swelling, polydipsia, polyuria, polyphagia, and marked weight changes, Hematologic/Lymphatic: Negative for swollen nodes, abnormal bleeding, and unusual bruising. 23:05 Neuro: Positive for seizure activity, Negative for altered mental status, gait disturbance, headache, hearing loss, speech changes, tinnitus, tremor, visual changes, weakness. Exam: 23:05 Constitutional: This is a well developed, well nourished patient who is awake, alert, kdr and in no acute distress. Head/Face: Normocephalic, atraumatic. Eyes: Pupils equal round and reactive to light, extra-ocular motions intact. Lids and lashes normal. Conjunctiva and sclera are non-icteric and not injected. Cornea within normal limits. Periorbital areas with no swelling, redness, or edema. Neck: Trachea midline, no thyromegaly or masses palpated, and no cervical lymphadenopathy. Supple, full range of motion without nuchal rigidity, or vertebral point tenderness. No Meningismus. Chest/axilla: Normal chest wall appearance and motion. Nontender with no deformity. No lesions are appreciated. Cardiovascular: Regular rate and rhythm with a normal S1 and S2. No gallops, murmurs, or rubs. Normal PMI, no JVD. No pulse deficits. Respiratory: Lungs have equal breath sounds bilaterally, clear to auscultation and percussion. No rales, rhonchi or wheezes noted. No increased work of breathing, no retractions or nasal flaring. Abdomen/GI: Soft, non-tender, with normal bowel sounds. No distension or tympany. No guarding or rebound. No evidence of tenderness throughout. Back: No spinal tenderness. No costovertebral tenderness. Full range of motion. Skin: Warm, dry with normal turgor. Normal color with no rashes, no lesions, and no evidence of cellulitis. MS/ Extremity: Pulses equal, no cyanosis. Neurovascular intact. Full, normal range of motion. Neuro: Awake and alert, GCS 15, oriented to person, place, time, and situation. Cranial nerves II-XII grossly intact. Motor strength 5/5 in all extremities. Sensory grossly intact. Cerebellar exam normal. Normal gait. Psych: Awake, alert, with orientation to person, place and time. Behavior, mood, and affect are within normal limits. Vital Signs: 22:21 BP 125 / 89; Pulse 87; Resp 18; Temp 98.7; Pulse Ox 100% on R/A; Weight 77.11 kg; df1 Height 5 ft. 5 in. (165.10 cm); Pain 0/10; 22:37 BP 127 / 88; Pulse 88; Resp 18; Pulse Ox 100% on R/A; df1 23:04 BP 123 / 88; Pulse 66; Resp 18; Pulse Ox 99% on R/A; df1 22:21 Body Mass Index 28.29 (77.11 kg, 165.10 cm) df1 MDM: 23:03 Patient medically screened. kdr 23:05 Data reviewed: vital signs, nurses notes. Counseling: I had a detailed discussion with kdr the patient and/or guardian regarding: the historical points, exam findings, and any diagnostic results supporting the discharge/admit diagnosis, the need for outpatient follow up. 23:05 ED course: Patient arrived at his baseline and remained so during his stay in the ED. kdr He was otherwise stable and without complaint. He had no post seizure residual discomfort or concerns. His mother was present at bedside during my exam and interview. He was discharged in good condition. He was happy with the care provided and the plan for discharge and follow-up. Administered Medications: No medications were administered Disposition Summary: 08/27/21 23:03 Discharge Ordered Location: Home kdr Problem: an acute exacerbation kdr Symptoms: are resolved kdr Condition: Stable kdr Diagnosis - Other seizures kdr - Epileptic seizures related to external causes kdr Followup: kdr - With: Private Physician - When: 2 - 3 days - Reason: If symptoms return, Further diagnostic work-up, Recheck today's complaints, Continuance of care, Re-evaluation by your physician Discharge Instructions: - Discharge Summary Sheet kdr - Epilepsy kdr - Seizure, Adult, Y[place]-ma-Fylm kdr - Form - Return To Work mw2 Forms: - Medication Reconciliation Form kdr - Thank You Letter kdr Signatures: Matthew Guthrie MD MD kdr Ania Tay df1
--- NOTE | 2021-08-27 23:03 | ER ---
Nurse's Notes [facility] Name: Shan Faye Age: 36 yrs Sex: Male : 1985 Arrival Date: 08/27/2021 Time: 21:57 Bed 8 Private MD: Diagnosis: Other seizures;Epileptic seizures related to external causes Presentation: 08/27 22:21 Chief complaint: Patient states: Pt arrived EMS from work c/o seizure. pt A\T\Ox4. No df1 distress. Denies pain, nausea, vomiting, blurry vision, numbness, tingling. Coronavirus screen: Vaccine status: Patient reports receiving the 2nd dose of the covid vaccine. Client denies travel out of the [place] in the last 14 days. At this time, the client does not indicate any symptoms associated with coronavirus-19. Ebola Screen: Patient negative for fever greater than or equal to 101.5 degrees Fahrenheit, and additional compatible Ebola Virus Disease symptoms Patient denies exposure to infectious person. Patient denies travel to an Ebola-affected area in the 21 days before illness onset. Initial Sepsis Screen: Does the patient meet any 2 criteria? No. Patient's initial sepsis screen is negative. Does the patient have a suspected source of infection? No. Patient's initial sepsis screen is negative. Risk Assessment: Do you want to hurt yourself or someone else? Patient reports no desire to harm self or others. Onset of symptoms was August 27, 2021 at 21:00. 22:21 Method Of Arrival: EMS: [facility] df1 22:21 Acuity: PAULINE 3 df1 23:04 Note Pt resting quietly in bed. No distress noted. No seizure activity noted. df1 Triage Assessment: 22:24 General: Appears in no apparent distress. Behavior is calm, cooperative. Pain: Denies df1 pain. Historical: - Allergies: 22:24 No Known Allergies; df1 - Home Meds: 22:24 Keppra 750 mg Oral tab 2 tabs 2 times per day [Active]; citalopram oral [Active]; df1 - PMHx: 22:24 Anxiety; BRAIN DISORDER, ONE SIDE MORE DEVELOPED THAN THE OTHER; CVA (1993); df1 Depression; mental retardation; Seizures; WHEELCHAIR BOUND, CAN AMBULATE WITH ASSITANCE. WEAKNESS; (no longer current. Pt ambulatory and able to perform ADL's); - PSHx: 22:24 Cholecystectomy; df1 - Immunization history:: Adult Immunizations up to date. - Social history:: Smoking status: Patient denies any tobacco usage or history of. Screenin:35 Abuse screen: Denies threats or abuse. Nutritional screening: No deficits noted. df1 Tuberculosis screening: No symptoms or risk factors identified. Fall Risk None identified. Assessment: 22:37 General: Appears in no apparent distress. General: Behavior is calm, cooperative. Pain: df1 Denies pain. Neuro: No deficits noted. Cardiovascular: No deficits noted. Respiratory: No deficits noted. GI: No deficits noted. : No deficits noted. EENT: No deficits noted. Musculoskeletal: No deficits noted. Vital Signs: 22:21 BP 125 / 89; Pulse 87; Resp 18; Temp 98.7; Pulse Ox 100% on R/A; Weight 77.11 kg; df1 Height 5 ft. 5 in. (165.10 cm); Pain 0/10; 22:37 BP 127 / 88; Pulse 88; Resp 18; Pulse Ox 100% on R/A; df1 23:04 BP 123 / 88; Pulse 66; Resp 18; Pulse Ox 99% on R/A; df1 22:21 Body Mass Index 28.29 (77.11 kg, 165.10 cm) df1 ED Course: 21:57 Patient arrived in ED. mw2 21:57 Matthew Guthrie MD is Attending Physician. kdr 22:09 Peg Davila is Primary Nurse. tw5 22:24 Triage completed. df1 22:24 Arm band placed on right wrist. df1 22:35 Patient has correct armband on for positive identification. Placed in gown. Bed in low df1 position. Call light in reach. Side rails up X 1. Adult w/ patient. bank worker on. Pulse ox on. NIBP on. 22:35 No provider procedures requiring assistance completed. Inserted saline lock: 20 gauge df1 in right antecubital area, using aseptic technique. 23:25 IV discontinued, intact, bleeding controlled, No redness/swelling at site. Pressure df1 dressing applied. Administered Medications: No medications were administered Outcome: 23:03 Discharge ordered by . kdr 23:25 Discharged to home ambulatory. df1 23:25 Condition: good 23:25 Discharge instructions given to patient, photographer lithographic, Instructed on discharge instructions, follow up and referral plans. Demonstrated understanding of instructions, follow-up care. 23:26 Patient left the ED. df1 Signatures: Matthew Guthrie MD MD [facility] Rogelio Aquino 2 Ania Tay df1 Peg Davila tw5
[2021-08-27 23:31] VITALS: TEMP 98.7
[2021-08-27 23:33] VITALS: BP 123/88; O2SAT 99
== END 2021-08-27 23:26 | disposition home or self-care (01) ==
LOC: ER 21:47
DX: G40.509 Epileptic seizures related to external causes, not intractable, without status epilepticus (principal); F41.8 Other specified anxiety disorders
CPT/HCPCS: 93005; 99284

== ENCOUNTER 2021-09-13 09:11 | Emergency (ER) | payer OTHER ==
--- OUTSIDE RECORDS SUMMARY | 2021-09-13 09:14 | XMS REPORT | Continuity of Care Document ---
:1985 Author Organization [facility] t Address [address] [place] [address] Care Team Providers Name Role Phone Unavailable [...] Clinicians Facility Department ID 2020-10-15 2020-10-15 Outpatient [facility] [id number] [facility]00 [facility] Clinics 2020-09-25 2020-09-25 Outpatient [facility] [id number] [facility] Clinics Results This patient has no known results.
--- NOTE | 2021-09-13 09:52 | RAD REPORT ---
EXAM DESCRIPTION: CT - Head Brain Wo Cont - 09/13/2021 9:36 am CLINICAL HISTORY: SEIZURE COMPARISON: Head Brain Wo Cont dated 06/04/2021; Head Brain Wo Cont dated 05/27/2021; Chest Single View dated 04/06/2021; Head Brain Wo Cont dated 04/06/2021; Head Brain Wo Cont dated 02/07/2018 TECHNIQUE: All CT scans are performed using dose optimization technique as appropriate and may inclu de automated exposure control or mA/KV adjustment according to patient size. FINDINGS: No intracranial hemorrhage, hydrocephalus or extra-axial fluid collection.No areas of brai n edema or evidence of midline shift. 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 The paranasal sinuses and mastoids are clear. The calvarium is intact. IMPRESSION: No acute intracranial abnormality.
[2021-09-13 10:23] LABS: Absolute Lymphocytes (CBC) 1.9 K/uL (0.7-4.9); Basophils % 0.5 % (0-1.3); Hematocrit 41.6 % (39.6-49.0); Lymphocytes % 36.6 % (15.3-44.8); MPV 8.6 fL (7.6-11.3); RBC Red Blood Cell Count 4.87 M/uL (4.33-5.43)
[2021-09-13 10:24] LABS: Protime INR 1.01
[2021-09-13 10:39] LABS: ALT/SGPT 31 U/L (12-78); AST/SGOT 27 U/L (15-37); Albumin 3.7 g/dL (3.4-5.0); Alkaline Phosphatase 66 U/L (45-117); BUN Blood Urea Nitrogen 14 mg/dL (7-18); Bicarbonate 27 mmol/L (21-32); Bilirubin Total 0.5 mg/dL (0.2-1.0); Glucose Level 123 mg/dL (74-106); Potassium 3.5 mmol/L (3.5-5.1); Protein, Total 7.2 g/dL (6.4-8.2); Sodium Level 144 mmol/L (136-145)
--- NOTE | 2021-09-13 12:26 | ER ---
Nurse's Notes [facility] Name: Shan Faye Age: 36 yrs Sex: Male : 1985 Arrival Date: 09/13/2021 Time: 09:13 Bed 5 Private MD: Diagnosis: Paresthesia of skin Presentation: 09/13 09:19 Chief complaint: Patient states: R sided weakness that began 3 days ago. 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 Coronavirus screen: Client denies travel out of the [place] in the last 14 days. Ebola Screen: Patient denies exposure to infectious person. Patient denies travel to an Ebola-affected area in the 21 days before illness onset. Initial Sepsis Screen: Does the patient meet any 2 criteria? No. Patient's initial sepsis screen is negative. Does the patient have a suspected source of infection? No. Patient's initial sepsis screen is negative. Risk Assessment: Do you want to hurt yourself or someone else? Patient reports no desire to harm self or others. Onset of symptoms was September 10, 2021. 09:19 Method Of Arrival: Wheelchair ss 09:19 Acuity: PAULINE 3 ss Triage Assessment: 09:30 General: Appears distressed, comfortable, Behavior is cooperative, appropriate for age, bp anxious. Pain: Denies pain. EENT: No deficits noted. Neuro: Level of Consciousness is awake, alert, obeys commands. Cardiovascular: No deficits noted. Respiratory: No deficits noted. GI: No signs and/or symptoms were reported involving the gastrointestinal system. : No signs and/or symptoms were reported regarding the genitourinary system. Derm: No deficits noted. Musculoskeletal: No deficits noted. Historical: - Allergies: 09:26 No Known Allergies; ss - PMHx: 09:26 Anxiety; BRAIN DISORDER, ONE SIDE MORE DEVELOPED THAN THE OTHER; CVA (1993); ss Depression; mental retardation; Seizures; WHEELCHAIR BOUND, CAN AMBULATE WITH ASSITANCE. WEAKNESS; (no longer current. Pt ambulatory and able to perform ADL's); - PSHx: 09:26 Cholecystectomy; ss - Immunization history:: Client reports receiving the 2nd dose of the Covid vaccine. - Social history:: Smoking status: Patient denies any tobacco usage or history of. Screenin:30 Abuse screen: Denies threats or abuse. Denies injuries from another. Nutritional bp screening: No deficits noted. Tuberculosis screening: No symptoms or risk factors identified. Fall Risk None identified. Assessment: 09:30 General: SEE TRIAGE NOTE. bp 12:00 Reassessment: No changes from previously documented assessment. Patient and/or family bp updated on plan of care and expected duration. Pain level reassessed. Patient is alert, oriented x 3, equal unlabored respirations, skin warm/dry/pink. ALL CURRENT ORDERS COMPLETE. 13:01 Reassessment: PT D/C HOME AMBULATORY WITH FAMILY. DX WITH PARASTHESIA OF SKIN. bp Vital Signs: 09:19 BP 130 / 81; Pulse 69; Resp 16; Temp 97.1(TE); Pulse Ox 97% on R/A; Weight 81.65 kg; ss Height 5 ft. 5 in. (165.10 cm); Pain 0/10; 12:08 BP 129 / 95; Pulse 68; Resp 17; Pulse Ox 98% ; bp 13:01 BP 132 / 96; Pulse 61; Resp 17; Temp 97.5; Pulse Ox 97% ; bp 09:19 Body Mass Index 29.95 (81.65 kg, 165.10 cm) ED Course: 09:13 Patient arrived in ED. as 09:15 Home Lopez, PILLO is Primary Nurse. bp 09:17 Juan M Miramontes NP is PHCP. pm1 09:17 Rosalie Reyes MD is Attending Physician. pm1 09:26 Triage completed. ss 09:26 Arm band placed on right wrist. ss 09:30 Patient has correct armband on for positive identification. Bed in low position. Call bp light in reach. Side rails up X2. 09:36 CT Head Brain wo Cont In Process Unspecified. EDMS 09:45 Inserted saline lock: 20 gauge in right forearm, using aseptic technique. Blood bp collected. 10:11 EKG done, by ED staff, reviewed by Juan M Miramontes NP. mb7 13:01 No provider procedures requiring assistance completed. IV discontinued, intact, bp bleeding controlled, No redness/swelling at site. Pressure dressing applied. Administered Medications: No medications were administered Outcome: 12:25 Discharge ordered by . pm1 13:01 Discharged to home ambulatory, with family. bp 13:01 Condition: stable 13:01 Discharge instructions given to patient, family, Instructed on discharge instructions, follow up and referral plans. Demonstrated understanding of instructions, follow-up care. 13:03 Patient left the ED. bp Signatures: Dispatcher [employer] Bita Harvey Shelby, RN RN ss Juan M Miramontes, BRANDON RN HOUSE SUPERVISOR pm1 Home Lopez RN RN bp Corinna Anne mb7
--- NOTE | 2021-09-13 12:27 | EDPHYS ---
Physician Documentation [facility] Name: Shan Faye Age: 36 yrs Sex: Male : 1985 Arrival Date: 09/13/2021 Time: 09:13 Bed 5 Private MD: ED Physician Rosalie Reeys HPI: 09/13 09:37 This 36 yrs old Male presents to ER via Wheelchair with complaints of Numbness pm1 - right side. 09:37 The patient's problem is reported as paresthesias, in right upper extremity. Onset: The pm1 symptoms/episode began/occurred 3 day(s) ago. Duration: The episode is continuous. Context: occurred at work. The symptoms are alleviated by nothing. The symptoms are aggravated by nothing. Associated signs and symptoms: Pertinent negatives: weakness. Severity of symptoms: in the emergency department the symptoms are unchanged. The patient has experienced similar episodes in the past, Ongoing since April 2021. The patient has been recently seen by a physician: a psychiatrist. Patient with complaints of numbness to right arm and bending to the right side from his waist and neck. Mother reports numbness to right arm has been present since April 2021. Historical: - Allergies: 09:26 No Known Allergies; ss - PMHx: 09:26 Anxiety; BRAIN DISORDER, ONE SIDE MORE DEVELOPED THAN THE OTHER; CVA (1993); ss Depression; mental retardation; Seizures; WHEELCHAIR BOUND, CAN AMBULATE WITH ASSITANCE. WEAKNESS; (no longer current. Pt ambulatory and able to perform ADL's); - PSHx: 09:26 Cholecystectomy; ss - Immunization history:: Client reports receiving the 2nd dose of the Covid vaccine. - Social history:: Smoking status: Patient denies any tobacco usage or history of. ROS: 09:37 Constitutional: Negative for fever, chills, and weight loss, Neck: Negative for injury, pm1 pain, and swelling, Cardiovascular: Negative for chest pain, palpitations, and edema, Respiratory: Negative for shortness of breath, cough, wheezing, and pleuritic chest pain, Abdomen/GI: Negative for abdominal pain, nausea, vomiting, diarrhea, and constipation, Back: Negative for injury and pain, MS/Extremity: Negative for injury and deformity, Skin: Negative for injury, rash, and discoloration. 09:37 Neuro: Positive for numbness, Negative for dizziness, headache, weakness. 09:37 All other systems are negative. Exam: 09:37 Constitutional: This is a well developed, well nourished patient who is awake, alert, pm1 and in no acute distress. Head/Face: Normocephalic, atraumatic. 09:37 Skin: Warm, dry with normal turgor. Normal color with no rashes, no lesions, and no evidence of cellulitis. MS/ Extremity: Pulses equal, no cyanosis. Neurovascular intact. Full, normal range of motion. 09:37 Eyes: Exam is negative for acute changes, Extraocular movements: intact throughout. 09:37 ENT: Exam is negative for acute changes, Mouth: no acute changes, Lips: normal, moist, Oral mucosa: normal, pink and intact, moist. 09:37 Neck: Exam negative for acute changes, ROM/movement: no acute changes. 09:37 Cardiovascular: Exam negative for acute changes, Rate: normal, Rhythm: regular, Pulses: no pulse deficits are appreciated, Heart sounds: normal, normal S1and S2. 09:37 Respiratory: Exam negative for acute changes, respiratory distress, shortness of breath, Breath sounds: are clear throughout. 09:37 Abdomen/GI: Exam negative for acute changes, Palpation: abdomen is soft and non-tender, in all quadrants. 09:37 Back: Exam negative for acute changes, normal spinal alignment noted. 09:37 Neuro: Exam negative for acute changes, Orientation: no acute changes, to person, place \T\ time. Mentation: no acute changes, Motor: moves all fours, strength is 5/5 in all extremities, Sensation: is normal, no obvious gross deficits. 09:53 Radiologist reports: NO acute findings pm1 Vital Signs: 09:19 BP 130 / 81; Pulse 69; Resp 16; Temp 97.1(TE); Pulse Ox 97% on R/A; Weight 81.65 kg; ss Height 5 ft. 5 in. (165.10 cm); Pain 0/10; 12:08 BP 129 / 95; Pulse 68; Resp 17; Pulse Ox 98% ; bp 13:01 BP 132 / 96; Pulse 61; Resp 17; Temp 97.5; Pulse Ox 97% ; bp 09:19 Body Mass Index 29.95 (81.65 kg, 165.10 cm) ss MDM: 09:25 Patient medically screened. pm1 12:23 Data reviewed: vital signs. Data interpreted: Pulse oximetry: on room air is 98 %. pm1 Interpretation: normal. Counseling: I had a detailed discussion with the patient and/or guardian regarding: the historical points, exam findings, and any diagnostic results supporting the discharge/admit diagnosis, lab results, radiology results, the need for outpatient follow up, to return to the emergency department if symptoms worsen or persist or if there are any questions or concerns that arise at home. 09/13 09:26 Order name: CBC with Diff; Complete Time: 10:48 pm1 09/13 09:26 Order name: PT-INR; Complete Time: 10:48 pm1 09/13 09:26 Order name: CT Head Brain wo Cont; Complete Time: 09:53 pm1 09/13 09:26 Order name: EKG; Complete Time: 09:27 pm1 09/13 09:26 Order name: EKG - Nurse/Tech; Complete Time: 10:10 pm1 09/13 09:26 Order name: CMP; Complete Time: 10:48 pm1 09/13 09:26 Order name: IV Saline Lock; Complete Time: 10:44 pm1 Administered Medications: No medications were administered Disposition: 09/14 07:10 Co-signature as Attending Physician, Rosalie Reyes MD. ma2 Disposition Summary: 09/13/21 12:25 Discharge Ordered Location: Home pm1 Problem: new pm1 Symptoms: have improved pm1 Condition: Stable pm1 Diagnosis - Paresthesia of skin pm1 Followup: pm1 - With: Emergency Department - When: As needed - Reason: Worsening of condition Followup: pm1 - With: Private Physician - When: 2 - 3 days - Reason: Recheck today's complaints, Continuance of care, Re-evaluation by your physician Discharge Instructions: - Discharge Summary Sheet pm1 - Paresthesia pm1 Forms: - Medication Reconciliation Form pm1 - Thank You Letter pm1 - Antibiotic Education pm1 - Prescription Opioid Use pm1 Signatures: Dispatcher [employer] Shayna Blank RN RN ss Marinas, Patrick, FACE PAINTER FACE PAINTER pm1 Rosalie Reyes MD MD ma2
[2021-09-13 13:18] VITALS: BP 132/96; TEMP 97.5; O2SAT 97
== END 2021-09-13 13:03 | disposition home or self-care (01) ==
LOC: ER 09:11
DX: R20.2 Paresthesia of skin (principal); Z86.73 Personal history of transient ischemic attack (TIA), and cerebral infarction without residual deficits; Z99.3 Dependence on wheelchair
CPT/HCPCS: 36415; 70450; 80053; 85025; 85610; 93005; 99284

== ENCOUNTER 2021-09-23 20:18 | Emergency (ER) | payer OTHER ==
--- OUTSIDE RECORDS SUMMARY | 2021-09-23 20:20 | XMS REPORT | Continuity of Care Document ---
:1985 Author Organization [facility] t Address [address] [place] [address] Care Team Providers Name Role Phone Unavailable [...] Clinicians Facility Department ID 2020-10-15 2020-10-15 Outpatient [facility] [id number] [facility]00 [facility] 2020-09-25 2020-09-25 Outpatient [facility] [id number] [facility] Results This patient has no known results.
[2021-09-23] MEDS ORDERED: LEVETIRACETAM 500 MG/5 ML VIAL IV ONE (20:34)
[2021-09-23] MEDS ORDERED: NA CHLORIDE 0.9% 100 ML ONE (20:35)
[2021-09-23] MEDS ORDERED: NA CHLORIDE 0.9% 1,000 ML ONE (20:46)
[2021-09-23] MEDS ORDERED: LORazepam 2 MG/ML VIAL ONE (20:49)
[2021-09-23 21:26] LABS: Absolute Lymphocytes (CBC) 2.4 K/uL (0.7-4.9); Basophils % 0.5 % (0-1.3); Hematocrit 39.3 % (39.6-49.0); Lymphocytes % 35.8 % (15.3-44.8); MPV 8.1 fL (7.6-11.3); RBC Red Blood Cell Count 4.64 M/uL (4.33-5.43)
[2021-09-23 21:27] LABS: Urine Blood Trace-lysed (Negative); Urine Glucose Negative (Negative); Urine Protein Negative (Negative); Urine Specific Gravity >=1.030 (1.005-1.030); Urine pH 5.5 (5.0-7.0)
[2021-09-23 21:35] LABS: Protime INR 1.05
[2021-09-23 21:43] LABS: ALT/SGPT 23 U/L (12-78); AST/SGOT 17 U/L (15-37); Albumin 3.7 g/dL (3.4-5.0); Alkaline Phosphatase 59 U/L (45-117); BUN Blood Urea Nitrogen 13 mg/dL (7-18); Bicarbonate 25 mmol/L (21-32); Bilirubin Direct 0.2 mg/dL (0-0.2); Bilirubin Total 0.6 mg/dL (0.2-1.0); Glucose Level 92 mg/dL (74-106); Lipase 64 U/L (73-393); Potassium 3.3 mmol/L (3.5-5.1); Protein, Total 6.8 g/dL (6.4-8.2); Sodium Level 141 mmol/L (136-145)
--- NOTE | 2021-09-23 21:45 | RAD REPORT ---
EXAM DESCRIPTION: CT - Head Brain Wo Cont - 09/23/2021 9:33 pm CLINICAL HISTORY: SEIZURE COMPARISON: Head Brain Wo Cont dated 09/13/2021; Head Brain Wo Cont dated 06/04/2021 TECHNIQUE: All CT scans are performed using dose optimization technique as appropriate and may inclu de automated exposure control or mA/KV adjustment according to patient size. FINDINGS: No intracranial hemorrhage, hydrocephalus or extra-axial fluid collection.No areas of brai n edema or evidence of midline shift. 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 The paranasal sinuses and mastoids are clear. The calvarium is intact. IMPRESSION: No acute intracranial abnormality.
[2021-09-23 22:15] LABS: Barbiturates NEGATIVE (NEGATIVE); Benzodiazepines NEGATIVE (NEGATIVE); Cocaine NEGATIVE (NEGATIVE); METHAMPHETAM NEGATIVE (NEGATIVE); Methadone NEGATIVE (NEGATIVE); Opiates NEGATIVE (NEGATIVE); Phencyclidine NEGATIVE (NEGATIVE); THC Cannibis NEGATIVE (NEGATIVE)
[2021-09-23] MEDS ORDERED: D5 0.9 NS 1,000 ML IV ONE (22:22)
--- NOTE | 2021-09-23 23:51 | EDPHYS ---
Physician Documentation [facility] Name: Shan Faye Age: 36 yrs Sex: Male : 1985 Arrival Date: 09/23/2021 Time: 20:19 Bed 6 Private MD: CLAUDE Physician Dorian Yoon HPI: 09/23 20:34 This 36 yrs old Male presents to ER via EMS with complaints of Seizure. mh7 20:34 The patient presents with a history of multiple seizures, an unknown number. Character mh7 of seizure(s): Loss of consciousness: the patient experienced loss of consciousness, brief, Motor activity: generalized, shaking all over, Incontinence: none, Apnea: the patient did not experience apnea, Circulation: the patient did not experience evidence of pulse disturbance, Eye movements: are unknown. Seizure onset: today. Context: the seizure(s) was witnessed, by co-worker(s), occurred at work, occurred while the patient was sitting, Contributing factors: unknown. Seizure Hx: Original onset: longstanding, since childhood,\E\. Associated injury: The patient did not suffer any apparent associated injury. EMS care: none. Current symptoms: Currently, the patient is not experiencing any symptoms, the patient feels back to baseline, no decreased level of consciousness, no confusion, no dysphasia, no headache, no paralysis, no visual changes. The patient has experienced similar episodes in the past, multiple times, chronically. Historical: - Allergies: 20:55 No Known Allergies; tw5 - Home Meds: 20:55 Keppra 750 mg Oral tab 2 tabs 2 times per day [Active]; buspirone 5 mg Oral tab 1 tab 3 tw5 times per day for generalized anxiety disorder [Active]; - PMHx: 20:55 Anxiety; BRAIN DISORDER, ONE SIDE MORE DEVELOPED THAN THE OTHER; CVA (1993); tw5 Depression; mental retardation; Seizures; WHEELCHAIR BOUND, CAN AMBULATE WITH ASSITANCE. WEAKNESS; (no longer current. Pt ambulatory and able to perform ADL's); - PSHx: 20:55 Cholecystectomy; tw5 - Immunization history:: Adult Immunizations up to date. - Social history:: Smoking status: Patient denies any tobacco usage or history of. ROS: 20:34 Constitutional: Negative for fever, chills, and weight loss, Eyes: Negative for injury, mh7 pain, redness, and discharge, ENT: Negative for injury, pain, and discharge, Neck: Negative for injury, pain, and swelling, Cardiovascular: Negative for chest pain, palpitations, and edema, Respiratory: Negative for shortness of breath, cough, wheezing, and pleuritic chest pain, Abdomen/GI: Negative for abdominal pain, nausea, vomiting, diarrhea, and constipation, Back: Negative for injury and pain, : Negative for injury, bleeding, discharge, and swelling, MS/Extremity: Negative for injury and deformity, Skin: Negative for injury, rash, and discoloration, Psych: Negative for depression, anxiety, suicide ideation, homicidal ideation, and hallucinations, Allergy/Immunology: Negative for hives, rash, and allergies, Endocrine: Negative for neck swelling, polydipsia, polyuria, polyphagia, and marked weight changes. Exam: 20:34 Constitutional: This is a well developed, well nourished patient who is awake, alert, mh7 and in no acute distress. Head/Face: Normocephalic, atraumatic. Eyes: Pupils equal round and reactive to light, extra-ocular motions intact. Lids and lashes normal. Conjunctiva and sclera are non-icteric and not injected. Cornea within normal limits. Periorbital areas with no swelling, redness, or edema. Neck: Trachea midline, no thyromegaly or masses palpated, and no cervical lymphadenopathy. Supple, full range of motion without nuchal rigidity, or vertebral point tenderness. No Meningismus. Chest/axilla: Normal chest wall appearance and motion. Nontender with no deformity. No lesions are appreciated. Cardiovascular: Regular rate and rhythm with a normal S1 and S2. No gallops, murmurs, or rubs. Normal PMI, no JVD. No pulse deficits. Respiratory: Lungs have equal breath sounds bilaterally, clear to auscultation and percussion. No rales, rhonchi or wheezes noted. No increased work of breathing, no retractions or nasal flaring. Abdomen/GI: Soft, non-tender, with normal bowel sounds. No distension or tympany. No guarding or rebound. No evidence of tenderness throughout. Back: No spinal tenderness. No costovertebral tenderness. Full range of motion. Skin: Warm, dry with normal turgor. Normal color with no rashes, no lesions, and no evidence of cellulitis. MS/ Extremity: Pulses equal, no cyanosis. Neurovascular intact. Full, normal range of motion. Neuro: Awake and alert, GCS 15, oriented to person, place, time, and situation. Cranial nerves II-XII grossly intact. Motor strength 5/5 in all extremities. Sensory grossly intact. Cerebellar exam normal. Normal gait. Psych: Awake, alert, with orientation to person, place and time. Behavior, mood, and affect are within normal limits. Vital Signs: 20:23 BP 127 / 89; Pulse 78; Resp 15; Temp 97.8; Pulse Ox 97% on R/A; Weight 81.65 kg; Height tw5 5 ft. 5 in. (165.10 cm) (R); 20:55 BP 135 / 94; Pulse 72; Resp 17; Pulse Ox 97% on R/A; Pain 0/10; tw5 23:36 BP 99 / 74; Pulse 68; Resp 18; Pulse Ox 92% on R/A; tw5 23:55 BP 120 / 85; Pulse 74; Resp 16; Pulse Ox 98% on R/A; tw5 20:23 Body Mass Index 29.95 (81.65 kg, 165.10 cm) tw5 Thornton Coma Score: 20:55 Eye Response: spontaneous(4). Verbal Response: oriented(5). Motor Response: obeys tw5 commands(6). Total: 15. MDM: 23:48 Differential diagnosis: drug overdose, cardiac arrhythmia, seizure. Data reviewed: [facility] vital signs, nurses notes, EMS record, old medical records, lab test result(s), CBC, drug level(s), acetaminophen, alcohol, salicylate, electrolytes, urine drug screen, EKG, radiologic studies, CT scan. Counseling: I had a detailed discussion with the patient and/or guardian regarding: the historical points, exam findings, and any diagnostic results supporting the discharge/admit diagnosis, lab results, radiology results, the need for outpatient follow up, a neurologist, to return to the emergency department if symptoms worsen or persist or if there are any questions or concerns that arise at home. Response to treatment: the patient's symptoms have resolved after treatment, the patient's blood pressure is in an acceptable range, mental status has returned to baseline, the patient no longer shows bradycardia, the patient is not short of breath, the patient is not tachycardic, the patient's pain is gone, the patient's temperature has normalized, the patient is now symptom free, patient is well hydrated. 23:50 Patient medically screened. [facility] 09/23 20:33 Order name: Basic Metabolic Panel; Complete Time: 22:03 [email or web address] 09/23 20:33 Order name: CBC with Diff; Complete Time: 22:03 [email or web address] 09/23 20:33 Order name: Hepatic Function; Complete Time: 22:03 [email or web address] 09/23 20:33 Order name: Lipase; Complete Time: 22:03 [email or web address] 09/23 20:33 Order name: Acetaminophen; Complete Time: 22:03 [facility] 09/23 20:33 Order name: ETOH Level; Complete Time: 22:03 [facility] 09/23 20:33 Order name: PT-INR; Complete Time: 22:03 [facility] 09/23 20:33 Order name: Ptt, Activated; Complete Time: 22:03 [facility] 09/23 20:33 Order name: Salicylate; Complete Time: 22:03 [facility] 09/23 20:33 Order name: Urine Drug Screen; Complete Time: 22:20 [facility] 09/23 21:26 Order name: Urine Dipstick-Ancillary; Complete Time: 22:03 [facility] 09/23 20:33 Order name: IV Saline Lock; Complete Time: 21:08 [email or web address] 09/23 20:33 Order name: Labs collected and sent; Complete Time: 21:13 [email or web address] 09/23 20:33 Order name: EKG; Complete Time: 20:34 [facility] 09/23 20:33 Order name: EKG - Nurse/Tech; Complete Time: 21:08 [facility] 09/23 20:33 Order name: IV Saline Lock; Complete Time: 21:08 [facility] 09/23 20:33 Order name: Labs collected and sent; Complete Time: 21:12 [facility] 09/23 20:33 Order name: Urine Dipstick-Ancillary (obtain specimen); Complete Time: 21:27 [facility] 09/23 20:47 Order name: CT Head Brain wo Cont; Complete Time: 22:03 7 Administered Medications: 23:49 Discontinued: D5-NS 1000 ml IV at bolus bolus sm5 20:51 Drug: Ativan (LORazepam) 2 mg Route: IVP; Site: right antecubital; tw5 21:08 Follow up: Response: No adverse reaction; RASS: Drowsy (-1) tw5 20:52 Drug: NS 0.9% 1000 ml Route: IV; Rate: 1000 ml; Site: right antecubital; tw5 23:56 Follow up: Response: No adverse reaction; IV Status: Completed infusion tw5 20:53 Drug: Keppra (levETIRAcetam) 1000 mg Route: IV; Rate: calculated rate; Site: right tw5 antecubital; 21:08 Follow up: Response: No adverse reaction; IV Status: Completed infusion tw5 22:27 Drug: D5-NS 1000 ml Route: IV; Rate: bolus; Site: left antecubital; 5 Disposition Summary: 09/23/21 23:50 Discharge Ordered Location: Home [facility] Problem: an acute exacerbation [facility] Symptoms: have improved [facility] Condition: Stable [facility] Diagnosis - Other seizures [facility] Followup: [facility] - With: Private Physician - When: 1 - 2 days - Reason: Worsening of condition, Recheck today's complaints, Continuance of care, Re-evaluation by your physician Followup: [facility] - With: Satinder Arreola MD - When: 1 - 2 days - Reason: Worsening of condition, Recheck today's complaints, Continuance of care, Re-evaluation by your physician Discharge Instructions: - Seizure, Adult, [id number] [facility] - Discharge Summary Sheet 5 Forms: - Medication Reconciliation Form 7 - Thank You Letter 7 - Antibiotic Education 7 - Prescription Opioid Use 7 - Work release form 5 Signatures: Dispatcher [employer] Dorian Machado MD MD [facility] Peg Davila 5 Tatyana Denny, PILLO RN 5 Corrections: (The following items were deleted from the chart) 20:34 20:33 BASIC METABOLIC PANEL+C.LAB.BRZ ordered. EDMS EDMS 20:34 20:33 CBC+H.LAB.BRZ ordered. EDMS EDMS 20:34 20:34 HEPATIC FUNCTION+C.LAB.BRZ ordered. EDMS EDMS
--- NOTE | 2021-09-23 23:51 | ER ---
Nurse's Notes [facility] Name: Shan Faye Age: 36 yrs Sex: Male : 1985 Arrival Date: 09/23/2021 Time: 20:19 Bed 6 Private MD: Diagnosis: Other seizures Presentation: 09/23 20:21 Chief complaint: EMS states: " He was working at [employer], felt a seizure come on, tw5 and he was assisted to the ground. Mom states that he had stroke when he was 8, and has seizures since. He is on Keppra for seizures. Onset of symptoms was September 23, 2021 at 20:00. 20:21 Method Of Arrival: EMS: [facility] tw5 20:54 Coronavirus screen: Vaccine status: Patient reports receiving the 1st dose of the Covid tw5 vaccine. Bertrand. Ebola Screen: Patient negative for fever greater than or equal to 101.5 degrees Fahrenheit, and additional compatible Ebola Virus Disease symptoms Patient denies exposure to infectious person. Patient denies travel to an Ebola-affected area in the 21 days before illness onset. Initial Sepsis Screen: Does the patient meet any 2 criteria? No. Patient's initial sepsis screen is negative. Does the patient have a suspected source of infection? No. Patient's initial sepsis screen is negative. Risk Assessment: Do you want to hurt yourself or someone else? Patient reports no desire to harm self or others. Note Patient had to active seizures in the ER both lasting 10 seconds about 3 min apart from one another. 20:54 Acuity: PAULINE 3 tw5 Triage Assessment: 20:55 General: Appears in no apparent distress. Behavior is calm, cooperative, appropriate tw5 for age. General: Behavior is drowsy. Pain: Denies pain. Neuro: Level of Consciousness is awake, alert, obeys commands, Oriented to person, place, time, situation. Historical: - Allergies: 20:55 No Known Allergies; tw5 - Home Meds: 20:55 Keppra 750 mg Oral tab 2 tabs 2 times per day [Active]; buspirone 5 mg Oral tab 1 tab 3 tw5 times per day for generalized anxiety disorder [Active]; - PMHx: 20:55 Anxiety; BRAIN DISORDER, ONE SIDE MORE DEVELOPED THAN THE OTHER; CVA (1993); tw5 Depression; mental retardation; Seizures; WHEELCHAIR BOUND, CAN AMBULATE WITH ASSITANCE. WEAKNESS; (no longer current. Pt ambulatory and able to perform ADL's); - PSHx: 20:55 Cholecystectomy; tw5 - Immunization history:: Adult Immunizations up to date. - Social history:: Smoking status: Patient denies any tobacco usage or history of. Screenin:27 Abuse screen: Denies threats or abuse. Denies injuries from another. Nutritional tw5 screening: No deficits noted. Tuberculosis screening: No symptoms or risk factors identified. Fall Risk Fall in past 12 months (25 points). Secondary diagnosis (15 points) IV access (20 points). Ambulatory Aid- None/Bed Rest/Nurse Assist (0 pts). Gait- Weak (10 pts.). Mental Status-. Assessment: 21:07 General: Appears in no apparent distress. comfortable, Behavior is calm, cooperative, tw5 appropriate for age. General: Behavior is drowsy. General: Behavior is. Pain: Denies pain. Neuro: Level of Consciousness is obeys commands. Cardiovascular: Heart tones S1 S2 present Rhythm is sinus rhythm. Respiratory: Airway is patent Trachea midline Respiratory effort is even, unlabored. Derm: Skin is intact, is healthy with good turgor. 21:27 Reassessment: Patient appears in no apparent distress at this time. Patient and/or tw5 family updated on plan of care and expected duration. Pain level reassessed. Patient states feeling better. 22:27 General: unable to drink apple juice at this time due to drowsiness. Provider notifed. tw5 23:36 General: Appears in no apparent distress. comfortable, Behavior is drowsy. tw5 Vital Signs: 20:23 BP 127 / 89; Pulse 78; Resp 15; Temp 97.8; Pulse Ox 97% on R/A; Weight 81.65 kg; Height tw5 5 ft. 5 in. (165.10 cm) (R); 20:55 BP 135 / 94; Pulse 72; Resp 17; Pulse Ox 97% on R/A; Pain 0/10; tw5 23:36 BP 99 / 74; Pulse 68; Resp 18; Pulse Ox 92% on R/A; tw5 23:55 BP 120 / 85; Pulse 74; Resp 16; Pulse Ox 98% on R/A; tw5 20:23 Body Mass Index 29.95 (81.65 kg, 165.10 cm) tw5 Benjamín Coma Score: 20:55 Eye Response: spontaneous(4). Verbal Response: oriented(5). Motor Response: obeys tw5 commands(6). Total: 15. ED Course: 20:19 Patient arrived in ED. mw2 20:21 Peg Davila is Primary Nurse. tw5 20:21 Dorian Yoon MD is Attending Physician. 7 20:55 Triage completed. tw5 20:55 Arm band placed on left wrist. Patient padded side rails. tw5 20:58 Patient has correct armband on for positive identification. Placed in gown. Bed in low tw5 position. Call light in reach. Side rails up X2. Adult w/ patient. Seizure precautions initiated. scientific publications editor on. Pulse ox on. NIBP on. Door closed. Noise minimized. Moved to private room. Warm blanket given. Verbal reassurance given. 20:58 Maintain EMS IV. Dressing intact. Good blood return noted. Site clean \\T\\ dry. Gauge \\T\\ tw 5 site: 20 G RAC. 21:03 EKG done, by ED staff, reviewed by Dorian Yoon MD. tw5 21:12 Acetaminophen Sent. tw5 21:12 ETOH Level Sent. tw5 21:12 PT-INR Sent. tw5 21:12 Ptt, Activated Sent. tw5 21:12 Salicylate Sent. tw5 21:13 Urine Drug Screen Sent. tw5 21:13 Basic Metabolic Panel Sent. tw5 21:13 CBC with Diff Sent. tw5 21:13 Hepatic Function Sent. tw5 21:13 Lipase Sent. tw5 21:27 No provider procedures requiring assistance completed. tw5 21:27 Acetaminophen Sent. tw5 21:27 ETOH Level Sent. tw5 21:28 PT-INR Sent. tw5 21:28 Ptt, Activated Sent. tw5 21:28 Salicylate Sent. tw5 21:28 Lipase Sent. tw5 21:28 Hepatic Function Sent. tw5 21:28 Basic Metabolic Panel Sent. tw5 21:32 CT Head Brain wo Cont In Process Unspecified. EDMS 23:50 Satinder Arreola MD is Referral Physician. [facility] 23:55 IV discontinued, intact, bleeding controlled, No redness/swelling at site. Pressure tw5 dressing applied. Administered Medications: 23:49 Discontinued: D5-NS 1000 ml IV at bolus bolus sm5 20:51 Drug: Ativan (LORazepam) 2 mg Route: IVP; Site: right antecubital; tw5 21:08 Follow up: Response: No adverse reaction; RASS: Drowsy (-1) tw 20:52 Drug: NS 0.9% 1000 ml Route: IV; Rate: 1000 ml; Site: right antecubital; tw5 23:56 Follow up: Response: No adverse reaction; IV Status: Completed infusion 20:53 Drug: Keppra (levETIRAcetam) 1000 mg Route: IV; Rate: calculated rate; Site: right tw5 antecubital; 21:08 Follow up: Response: No adverse reaction; IV Status: Completed infusion 22:27 Drug: D5-NS 1000 ml Route: IV; Rate: bolus; Site: left antecubital; 5 Outcome: 23:50 Discharge ordered by MD. jc 23:55 Discharged to home 23:55 Condition: improved 23:55 Discharge instructions given to patient, family, Instructed on discharge instructions, follow up and referral plans. Demonstrated understanding of instructions, follow-up care. 23:55 Patient left the ED. Signatures: Dispatcher [employer] EDMS Rogelio Aquino mw2 Dorian Yoon MD MD 7 Peg Davila tw5 Tatyana Denny, RN RN 5
[2021-09-24 00:42] VITALS: TEMP 97.8
[2021-09-24 00:47] VITALS: BP 120/85; O2SAT 98
== END 2021-09-23 23:55 | disposition home or self-care (01) ==
LOC: ER 20:18
DX: G40.89 Other seizures (principal); F41.1 Generalized anxiety disorder
CPT/HCPCS: 96361; 93005; 85025; 80048; 36415; 80320; 80329 ×2; 85610; 82947; 80076; 85730; 81003; 83690; 80307; 70450; 96375; 96374; 99284; J1953; J7042; J7030

== ENCOUNTER 2021-10-14 04:18 | Emergency (ER) | payer OTHER ==
--- OUTSIDE RECORDS SUMMARY | 2021-10-14 04:21 | XMS REPORT | Continuity of Care Document ---
:1985 Author Organization [facility] t Address [address] [place] [address] Care Team Providers Name Role Phone Unavailable [...] Clinicians Facility Department ID 2020-10-15 2020-10-15 Outpatient [facility] [id number] [facility] 2020-09-25 2020-09-25 Outpatient [facility] [id number] [facility] Results This patient has no known results.
--- NOTE | 2021-10-14 06:56 | ER ---
Nurse's Notes [facility] Name: Shan Faye Age: 36 yrs Sex: Male : 1985 Arrival Date: 10/14/2021 Time: 04:22 Bed 12 Private MD: Diagnosis: Contact with and (suspected) exposure to pediculosis, acariasis and other infestations Presentation: 10/14 06:41 Chief complaint: Patient states: he has body lice around his genital area x 2 days. bb Coronavirus screen: At this time, the client does not indicate any symptoms associated with coronavirus-19. Ebola Screen: No symptoms or risks identified at this time. Onset: The symptoms/episode began/occurred 2 day(s) ago. Anaphylaxis evaluation, no signs or symptoms of anaphylaxis were noted. Initial Sepsis Screen: Does the patient meet any 2 criteria? No. Patient's initial sepsis screen is negative. Does the patient have a suspected source of infection? No. Patient's initial sepsis screen is negative. Risk Assessment: Do you want to hurt yourself or someone else? Patient reports no desire to harm self or others. Onset of symptoms was October 12, 2021. 06:41 Method Of Arrival: Ambulatory bb 06:41 Acuity: PAULINE 5 bb Triage Assessment: 06:43 General: Appears in no apparent distress. Behavior is calm, cooperative. Pain: Denies bb pain. Neuro: Level of Consciousness is awake, alert, obeys commands, Oriented to person, place, situation. Cardiovascular: No deficits noted. Respiratory: Respiratory effort is even, unlabored. GI: No signs and/or symptoms were reported involving the gastrointestinal system. Derm: Reports lice in genital area. Musculoskeletal: Circulation, motion, and sensation intact. Historical: - Allergies: 06:43 No Known Allergies; bb - Immunization history:: Client reports receiving the John \T\ John single-dose vaccine. - Social history:: Smoking status: Patient denies any tobacco usage or history of. Vital Signs: 06:41 BP 133 / 87; Pulse 56; Resp 16 S; Temp 97(O); Pulse Ox 100% on R/A; Weight 78.02 kg bb (R); Height 5 ft. 7 in. (170.18 cm) (R); 06:41 Body Mass Index 26.94 (78.02 kg, 170.18 cm) gregory ED Course: 04:22 Patient arrived in ED. 06:43 Triage completed. gregory 06:43 Arm band placed on Patient placed in an exam room. gregory 06:46 Jaron Sow PA is PHCP. baltazar 06:46 Isaiah Ferrer MD is Attending Physician. jr8 Administered Medications: No medications were administered Outcome: 06:56 Discharge ordered by . jrEdson 07:18 Discharged to home ambulatory, with family. ll3 07:18 Condition: stable 07:18 Discharge instructions given to patient, family, Instructed on discharge instructions, follow up and referral plans. medication usage, Demonstrated understanding of instructions, follow-up care, medications, Prescriptions given X 1. 07:18 Patient left the ED. ll3 Signatures: Kate White, RN RN Jaron Tello PA PA jr8 Raquel Jean Baptiste Yonathan Azar RN RN ll3
--- NOTE | 2021-10-14 07:19 | EDPHYS ---
Physician Documentation [facility] Name: Shan Faye Age: 36 yrs Sex: Male : 1985 Arrival Date: 10/14/2021 Time: 04:22 Bed 12 Private MD: ED Physician Isaiah Ferrer HPI: 10/14 07:00 This 36 yrs old Male presents to ER via Ambulatory with complaints of Itching jr8 - GENITAL. 07:00 Patient thinks he has bed lice or scabies. Stated that he has perineal itching that now jr8 went to back and head. Denies fevers, pain, or any other complaint at this time. Severity of symptoms: At their worst the symptoms were mild. The patient has not experienced similar symptoms in the past. The patient has not recently seen a physician. Historical: - Allergies: 06:43 No Known Allergies; bb - Immunization history:: Client reports receiving the John \T\ John single-dose vaccine. - Social history:: Smoking status: Patient denies any tobacco usage or history of. ROS: 07:00 Eyes: Negative for injury, pain, redness, and discharge, ENT: Negative for injury, jr8 pain, and discharge, Neck: Negative for injury, pain, and swelling, Cardiovascular: Negative for chest pain, palpitations, and edema, Respiratory: Negative for shortness of breath, cough, wheezing, and pleuritic chest pain, Abdomen/GI: Negative for abdominal pain, nausea, vomiting, diarrhea, and constipation, Back: Negative for injury and pain, MS/Extremity: Negative for injury and deformity, Neuro: Negative for headache, weakness, numbness, tingling, and seizure. 07:00 Skin: Positive for rash. Exam: 07:00 Constitutional: This is a well developed, well nourished patient who is awake, alert, jr8 and in no acute distress. Head/Face: Normocephalic, atraumatic. ENT: Nares patent. No nasal discharge, no septal abnormalities noted. Tympanic membranes are normal and external auditory canals are clear. Oropharynx with no redness, swelling, or masses, exudates, or evidence of obstruction, uvula midline. Mucous membranes moist. Neck: Trachea midline, no thyromegaly or masses palpated, and no cervical lymphadenopathy. Supple, full range of motion without nuchal rigidity, or vertebral point tenderness. No Meningismus. Cardiovascular: Regular rate and rhythm with a normal S1 and S2. No gallops, murmurs, or rubs. Normal PMI, no JVD. No pulse deficits. Respiratory: Lungs have equal breath sounds bilaterally, clear to auscultation and percussion. No rales, rhonchi or wheezes noted. No increased work of breathing, no retractions or nasal flaring. Abdomen/GI: Soft, non-tender, with normal bowel sounds. No distension or tympany. No guarding or rebound. No evidence of tenderness throughout. Back: No spinal tenderness. No costovertebral tenderness. Full range of motion. MS/ Extremity: Pulses equal, no cyanosis. Neurovascular intact. Full, normal range of motion. Neuro: Awake and alert, GCS 15, oriented to person, place, time, and situation. Motor strength 5/5 in all extremities. Sensory grossly intact. 07:00 Skin: Patient has mild erythema to perineal region. No signs of cellulitis or abscess. Non tender to palpation. No other rashes noted. Some small scabbing noted to various areas of his body. Vital Signs: 06:41 BP 133 / 87; Pulse 56; Resp 16 S; Temp 97(O); Pulse Ox 100% on R/A; Weight 78.02 kg bb (R); Height 5 ft. 7 in. (170.18 cm) (R); 06:41 Body Mass Index 26.94 (78.02 kg, 170.18 cm) bb MDM: 06:46 Patient medically screened. jr8 07:00 Data reviewed: vital signs, nurses notes, and as a result, I will discharge patient. jr8 Data interpreted: Pulse oximetry: on room air is 100 %. Interpretation: normal. Counseling: I had a detailed discussion with the patient and/or guardian regarding: the historical points, exam findings, and any diagnostic results supporting the discharge/admit diagnosis, the need for outpatient follow up, a family practitioner, to return to the emergency department if symptoms worsen or persist or if there are any questions or concerns that arise at home. ED course: Mother came in after discharge upset that patient was seen and discharged so fast. Explained to her that there was no significant findings on physical exam. No fevers and patient is hemodynamically stable. Based on exam and what patient was feeling it is reasonable to give him the shampoo to try and then after rinsing off can apply jock itch spray or cream to perineal region as well. If worse to come back or f/u. Mom now understanding and good with plan. Administered Medications: No medications were administered Disposition: 12:17 Co-signature as Attending Physician, Isaiah Ferrer MD I agree with the assessment and annie plan of care. Disposition Summary: 10/14/21 06:56 Discharge Ordered Location: Home jr8 Problem: new jr8 Symptoms: have improved jr8 Condition: Stable jr8 Diagnosis - Contact with and (suspected) exposure to pediculosis, acariasis and other jr8 infestations Followup: jr8 - With: Private Physician - When: 1 - 2 days - Reason: Recheck today's complaints, Continuance of care, Re-evaluation by your physician Discharge Instructions: - Discharge Summary Sheet jr8 - Lice, Adult jr8 - Scabies, Adult jr8 Forms: - Medication Reconciliation Form jr8 - Work release form bd - Thank You Letter jr8 - Antibiotic Education jr8 - Prescription Opioid Use jr8 Prescriptions: - lindane 1 % Topical shampoo - apply 60 milliliter by TOPICAL route one time leave on for 4 min and then wash jr8 off; 1 bottle; Refills: 0, Product Selection Permitted Signatures: Isaiah Ferrer MD MD cha Ballard, Brenda, PILLO RN Jaron Tello PA PA jr8
[2021-10-14 07:22] VITALS: BP 133/87; TEMP 97; O2SAT 100
== END 2021-10-14 07:18 | disposition home or self-care (01) ==
LOC: ER 04:18
DX: R21 Rash and other nonspecific skin eruption (principal); Z20.7 Contact with and (suspected) exposure to pediculosis, acariasis and other infestations
CPT/HCPCS: 99282

== ENCOUNTER 2021-11-23 03:08 | Emergency (ER) | payer OTHER ==
--- OUTSIDE RECORDS SUMMARY | 2021-11-23 03:11 | XMS REPORT | Continuity of Care Document ---
:1985 Author Organization [facility] t Address [address] [place] [address] Care Team Providers Name Role Phone Elizabeth Allen Attending Clinician Unavailable Problems This patient has no known problems. Allergies, Adverse Reactions, Alerts This patient has no known allergies or adverse reactions. Medications This patient has no known medications. Procedures This patient has no known procedures. Encounters Start End Encounter Admission Attending Care Care Encounter Source Date/Time Date/Time Type Type Clinicians Facility Department ID 2021-10-29 Outpatient Allen, [facility] [id number] [facility] 12:21:25 Jethro [id number] [facility] 2021-10-29 Outpatient Alejandro [facility] [id number] [facility] [address] 12:19:51 Jethro [id number] [facility] 2021-10-29 Outpatient Allen, [facility] [id number] [facility] 12:16:00 J[facility] [id number] [facility] 2020-10-15 2020-10-15 Outpatient [facility] [id number] [facility]00 [facility] 2020-09-25 2020-09-25 Outpatient [facility] [id number] [facility]00 [facility] Results This patient has no known results.
[2021-11-23] MEDS ORDERED: NA CHLORIDE 0.9% 500 ML ONE (03:41)
[2021-11-23] MEDS ORDERED: LORazepam 2 MG/ML VIAL ONE (03:41)
[2021-11-23] MEDS ORDERED: LEVETIRACETAM 500 MG/5 ML VIAL IV ONE (03:41)
[2021-11-23] MEDS ORDERED: NA CHLORIDE 0.9% 100 ML IV ONE (03:44)
[2021-11-23 03:46] LABS: Absolute Lymphocytes (CBC) 2.2 K/uL (0.7-4.9); Hematocrit 43.8 % (39.6-49.0); Lymphocytes % 34.6 % (15.3-44.8); MPV 8.1 fL (7.6-11.3); RBC Red Blood Cell Count 5.14 M/uL (4.33-5.43)
[2021-11-23 03:59] LABS: ALT/SGPT 25 U/L (12-78); AST/SGOT 16 U/L (15-37); Alkaline Phosphatase 67 U/L (45-117); BUN Blood Urea Nitrogen 13 mg/dL (7-18); Bicarbonate 28 mmol/L (21-32); Bilirubin Direct 0.1 mg/dL (0-0.2); Bilirubin Total 0.6 mg/dL (0.2-1.0); Glucose Level 109 mg/dL (74-106); Magnesium 2.1 mg/dL (1.8-2.4); Potassium 3.8 mmol/L (3.5-5.1); Protein, Total 7.5 g/dL (6.4-8.2); Sodium Level 138 mmol/L (136-145)
--- NOTE | 2021-11-23 05:03 | ER ---
Nurse's Notes [facility] Name: Shan Faye Age: 36 yrs Sex: Male : 1985 Arrival Date: 11/23/2021 Time: 03:10 Bed 15 Private MD: Diagnosis: Epileptic seizures related to external causes;Weakness Presentation: 11/23 03:12 Chief complaint: EMS states: The patient had a witnessed and a unwitnessed seizure. sv1 Coronavirus screen: Client denies travel out of the [place] in the last 14 days. Ebola Screen: No symptoms or risks identified at this time. Initial Sepsis Screen: Does the patient meet any 2 criteria? No. Patient's initial sepsis screen is negative. Risk Assessment: Do you want to hurt yourself or someone else? Unable to obtain. Onset of symptoms was November 23, 2021. 03:12 Method Of Arrival: EMS: [facility] sv1 03:12 Acuity: PAULINE 2 sv1 Triage Assessment: 03:16 General: Appears in no apparent distress. uncomfortable, well groomed, well developed, sv1 Behavior is calm, cooperative, appropriate for age. Pain: Denies pain. Neuro: Seizure activity Type of seizure: tonic-clonic seizure. Seizure lasted approximately 3 minutes. Patient is post-ictal at this time. Historical: - Allergies: 03:16 No Known Allergies; sv1 - Immunization history:: Adult Immunizations not up to date, Client reports receiving the 2nd dose of the Covid vaccine. - Social history:: Smoking status: Patient denies any tobacco usage or history of. 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 - Family history:: not pertinent. Screenin:23 Abuse screen: Denies threats or abuse. Nutritional screening: No deficits noted. sv1 Tuberculosis screening: No symptoms or risk factors identified. Fall Risk Fall in past 12 months (25 points). Secondary diagnosis (15 points) Ambulatory Aid- None/Bed Rest/Nurse Assist (0 pts). Gait- Weak (10 pts.). Mental Status- Oriented to own ability (0 pts). Total English Fall Scale indicates High Risk Score (45 or more points). Fall prevention measures have been instituted. Side Rails Up X 2 Placed Close to Nursing Station Family Present and informed to notify staff if the need to leave the bedside. Assessment: 03:25 Reassessment: CC witnessed and unwitnessed seizure. The patients mother heard him wake sv1 up and she found him on the floor. He got up on his own and went back to bed. The patient wrote a note to his mother stating that he could not talk and had difficulty swallowing. The patient had a cva at age 8 and suffers right sided deficits. . 04:54 Reassessment: The patient started speaking again in short sentences. The provider was sv1 notified. Waiting for CT results. Vital Signs: 03:12 BP 145 / 72 LA Supine (auto/reg); Pulse 74 MON; Resp 18 S; Temp 97.8(O); Pulse Ox 97% sv1 on R/A; Pain 0/10; 04:53 BP 125 / 89 RA Supine (auto/reg); Pulse 82 MON; Resp 19 S; Temp 98.0; Pulse Ox 98% ; sv1 Pain 0/10; Benjamín Coma Score: 03:16 Eye Response: spontaneous(4). Verbal Response: none(1). Motor Response: obeys sv1 commands(6). Total: 11. NIH Stroke Scale Scores: 05:03 NIHSS Score: 0 annie ED Course: 03:10 Patient arrived in ED. sv1 03:11 Dano Pepper, PILLO is Primary Nurse. sv1 03:16 Triage completed. sv1 03:16 Arm band placed on right wrist. sv1 03:17 Isaiah Ferrer MD is Attending Physician. annie 03:23 Patient has correct armband on for positive identification. Bed in low position. Call sv1 light in reach. Side rails up X2. Adult w/ patient. 03:23 No provider procedures requiring assistance completed. Maintain EMS IV. Dressing sv1 intact. Good blood return noted. Site clean \T\ dry. 03:25 Patient has correct armband on for positive identification. Allergy band placed. sv1 03:25 Maintain EMS IV. Dressing intact. sv1 03:53 XRAY Chest (1 view) In Process Unspecified. EDMS 04:45 UDS Sent. sv1 05:02 Veronica Frank MD is Referral Physician. annie 10:02 CT Head Brain wo Cont In Process Unspecified. EDMS Administered Medications: 03:58 Drug: Ativan (LORazepam) 1 mg Route: IVP; Site: left antecubital; sv1 04:48 Follow up: Response: No adverse reaction; Anxiety decreased sv1 03:58 Drug: Keppra (levETIRAcetam) 1000 mg Route: IV; Rate: per protocol; Site: left sv1 antecubital; 04:47 Follow up: IV Status: Completed infusion sv1 04:47 Follow up: Response: No adverse reaction sv1 03:59 Drug: NS 0.9% 500 ml Route: IV; Rate: bolus; Site: left antecubital; sv1 04:49 Follow up: IV Status: Completed infusion sv1 Outcome: 05:02 Discharge ordered by MD. valencia 05:21 Patient left the ED. sv1 NIH Stroke Scale - NIH Stroke Score Date: 11/23/2021 Time: 05:03 Total Score = 0 1a. Level of Consciousness (LOC) - 0(Alert) 1b. Level of Consciousness (LOC) (Month \T\ Age) - 0(Both) 1c. LOC Commands (Open \T\ Closes Eyes/[employer]) - 0(Both) 2. Best Gaze (Lateral Gaze Paresis) - 0(Normal) 3. Visual Field Loss - 0(No visual loss) 4. Facial Palsy - 0(Normal) 5a. Left Arm: Motor (10-second hold) - 0(No drift) 5b. Right Arm: Motor (10-second hold) - 0(No drift) 6a. Left Leg: Motor (5-second hold - always test supine) - 0(No drift) 6b. Right Leg: Motor (5-second hold - always test supine) - 0(No drift) 7. Limb Ataxia (finger/nose \T\ heel/jennings - test with eyes open) - 0(Absent) 8. Sensory Loss (pinprick arms/legs/face) - 0(Normal) 9. Best Language: Aphasia (description/naming/reading) - 0(No aphasia) 10. Dysarthria (speech clarity - read or repeat words) - 0(Normal) 11. Extinction and Inattention (visual/tactile/auditory/spatial/personal) - 0(No abnormality) Initials: annie Signatures: Dispatcher [employer] Isaiah rEwin MD MD cha Villicano, Steven, RN RN sv1 Corrections: (The following items were deleted from the chart) 03:20 03:16 PMHx: Seizures; sv1 sv1 03:16 PMHx: Anxiety; sv1 sv1 03:16 PMHx: CVA (1993); sv1 sv1 03:16 PMHx: BRAIN DISORDER, ONE SIDE MORE DEVELOPED THAN THE OTHER; sv1 sv1 : 03:16 PMHx: WHEELCHAIR BOUND, CAN AMBULATE WITH ASSITANCE. WEAKNESS; (no longer sv1 current. Pt ambulatory and able to perform ADL's); sv1 03:16 PMHx: Depression; sv1 sv1 03:16 PMHx: mental retardation; sv1 sv1 : 03:16 PSHx: Cholecystectomy; sv1 sv1
--- NOTE | 2021-11-23 05:03 | EDPHYS ---
Physician Documentation [facility] Name: Shan Faye Age: 36 yrs Sex: Male : 1985 Arrival Date: 11/23/2021 Time: 03:10 Bed 15 Private MD: ED Physician Isaiah Ferrer HPI: 11/23 03:41 This 36 yrs old Male presents to ER via EMS with complaints of Probable annie Seizure. 03:41 The patient presents after having a single isolated seizure, that lasted 1 minute(s). annie Character of seizure(s): Loss of consciousness: the patient did not lose consciousness, Motor activity: focal activity, blank stare. Seizure onset: just prior to arrival. Context: the seizure(s) was witnessed, by family, mother, occurred at home. Seizure Hx: Last seizure: The patient's last seizure was approximately 4 month(s) ago. Associated injury: The patient did not suffer any apparent associated injury. EMS care: none. Current symptoms: Currently, the patient is not experiencing any symptoms. The patient has experienced similar episodes in the past, multiple times. Historical: - Allergies: 03:16 No Known Allergies; sv1 - Immunization history:: Adult Immunizations not up to date, Client reports receiving the 2nd dose of the Covid vaccine. - Social history:: Smoking status: Patient denies any tobacco usage or history of. 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 - Family history:: not pertinent. ROS: 03:41 Constitutional: Negative for fever, chills, and weight loss, Eyes: Negative for injury, annie pain, redness, and discharge, ENT: Negative for injury, pain, and discharge, Neck: Negative for injury, pain, and swelling, Cardiovascular: Negative for chest pain, palpitations, and edema, Abdomen/GI: Negative for abdominal pain, nausea, vomiting, diarrhea, and constipation, Back: Negative for injury and pain, : Negative for injury, bleeding, discharge, and swelling, MS/Extremity: Negative for injury and deformity, Skin: Negative for injury, rash, and discoloration, Psych: Negative for depression, anxiety, suicide ideation, homicidal ideation, and hallucinations, Allergy/Immunology: Negative for hives, rash, and allergies, Endocrine: Negative for neck swelling, polydipsia, polyuria, polyphagia, and marked weight changes, Hematologic/Lymphatic: Negative for swollen nodes, abnormal bleeding, and unusual bruising. 03:41 Respiratory: Positive for shortness of breath. 03:41 Neuro: Positive for seizure activity. Exam: 03:41 Constitutional: This is a well developed, well nourished patient who is awake, alert, annie and in no acute distress. Head/Face: Normocephalic, atraumatic. Eyes: Pupils equal round and reactive to light, extra-ocular motions intact. Lids and lashes normal. Conjunctiva and sclera are non-icteric and not injected. Cornea within normal limits. Periorbital areas with no swelling, redness, or edema. ENT: Nares patent. No nasal discharge, no septal abnormalities noted. Tympanic membranes are normal and external auditory canals are clear. Oropharynx with no redness, swelling, or masses, exudates, or evidence of obstruction, uvula midline. Mucous membranes moist. Neck: Trachea midline, no thyromegaly or masses palpated, and no cervical lymphadenopathy. Supple, full range of motion without nuchal rigidity, or vertebral point tenderness. No Meningismus. Chest/axilla: Normal chest wall appearance and motion. Nontender with no deformity. No lesions are appreciated. Cardiovascular: Regular rate and rhythm with a normal S1 and S2. No gallops, murmurs, or rubs. Normal PMI, no JVD. No pulse deficits. Respiratory: Lungs have equal breath sounds bilaterally, clear to auscultation and percussion. No rales, rhonchi or wheezes noted. No increased work of breathing, no retractions or nasal flaring. Abdomen/GI: Soft, non-tender, with normal bowel sounds. No distension or tympany. No guarding or rebound. No evidence of tenderness throughout. Back: No spinal tenderness. No costovertebral tenderness. Full range of motion. Male : Normal genitalia with no discharge or lesions. Skin: Warm, dry with normal turgor. Normal color with no rashes, no lesions, and no evidence of cellulitis. 05:02 ECG was reviewed by the Attending Physician. [facility] Vital Signs: 03:12 BP 145 / 72 LA Supine (auto/reg); Pulse 74 MON; Resp 18 S; Temp 97.8(O); Pulse Ox 97% sv1 on R/A; Pain 0/10; 04:53 BP 125 / 89 RA Supine (auto/reg); Pulse 82 MON; Resp 19 S; Temp 98.0; Pulse Ox 98% ; sv1 Pain 0/10; NIH Stroke Scale Scores: 05:03 NIHSS Score: 0 [facility] Benjamín Coma Score: 03:16 Eye Response: spontaneous(4). Verbal Response: none(1). Motor Response: obeys sv1 commands(6). Total: 11. MDM: 03:17 Patient medically screened. [facility] 03:44 Differential diagnosis: cardiac arrhythmia, seizure. Data reviewed: vital signs, nurses [facility] notes, lab test result(s), EKG, radiologic studies, plain films. Data interpreted: residential monitor: rate is 74 beats/min, rhythm is regular, Pulse oximetry: on room air is 97 %. Test interpretation: by ED physician or midlevel provider: ECG, plain radiologic studies. Counseling: I had a detailed discussion with the patient and/or guardian regarding: the historical points, exam findings, and any diagnostic results supporting the discharge/admit diagnosis, lab results, radiology results, the need for outpatient follow up, for definitive care, a family practitioner, a neurologist. Medication response: 11/23 03:23 Order name: Basic Metabolic Panel; Complete Time: 04:28 [facility] 11/23 03:23 Order name: CBC with Diff; Complete Time: 04:28 [facility] 11/23 03:23 Order name: LFT's; Complete Time: 04:28 11/23 03:23 Order name: Magnesium; Complete Time: 04:28 11/23 03:23 Order name: Troponin HS; Complete Time: 04:28 11/23 03:23 Order name: UDS 11/23 03:23 Order name: XRAY Chest (1 view) 11/23 03:23 Order name: EKG; Complete Time: 03:24 annie 11/23 03:23 Order name: Cardiac monitoring; Complete Time: 03:59 [facility] 11/23 03:23 Order name: EKG - Nurse/Tech; Complete Time: 04:14 [facility] 11/23 04:28 Order name: CT Head Brain wo Cont 11/23 03:23 Order name: Labs collected and sent; Complete Time: 03:59 [facility] 11/23 03:23 Order name: O2 Per Protocol; Complete Time: 03:59 [facility] 11/23 03:23 Order name: O2 Sat Monitoring; Complete Time: 03:59 [facility] 11/23 03:23 Order name: Seizure Precautions; Complete Time: 03:31 [facility] 11/23 03:23 Order name: Urine Dipstick-Ancillary (obtain specimen); Complete Time: 04:49 [facility] EC:02 Rate is 75 beats/min. Rhythm is regular. QRS Dunbar is Normal. PA interval is normal. QRS annie interval is normal. QT interval is normal. No Q waves. T waves are Normal. No ST changes noted. Clinical impression: Normal ECG and No evidence of ischemia. Interpreted by me. Reviewed by me. Administered Medications: 03:58 Drug: Ativan (LORazepam) 1 mg Route: IVP; Site: left antecubital; sv1 04:48 Follow up: Response: No adverse reaction; Anxiety decreased sv1 03:58 Drug: Keppra (levETIRAcetam) 1000 mg Route: IV; Rate: per protocol; Site: left sv1 antecubital; 04:47 Follow up: IV Status: Completed infusion sv1 04:47 Follow up: Response: No adverse reaction sv1 03:59 Drug: NS 0.9% 500 ml Route: IV; Rate: bolus; Site: left antecubital; sv1 04:49 Follow up: IV Status: Completed infusion sv1 Disposition Summary: 11/23/21 05:02 Discharge Ordered Location: Home annie Problem: new annie Symptoms: have improved annie Condition: Stable annie Diagnosis - Epileptic seizures related to external causes annie - Weakness annie Followup: annie - With: Private Physician - When: 1 - 2 days - Reason: Recheck today's complaints, Continuance of care, Re-evaluation by your physician Followup: annie - With: - When: 2 - 3 days - Reason: Recheck today's complaints, Continuance of care, Re-evaluation by your physician Discharge Instructions: - Discharge Summary Sheet annie - Seizure, Adult annie - Weakness annie - Seizure, Adult, [id number] annie - Weakness, [id number] annie Forms: - Medication Reconciliation Form annie - Thank You Letter annie - Antibiotic Education annie - Prescription Opioid Use annie NIH Stroke Scale - NIH Stroke Score Date: 11/23/2021 Time: 05:03 Total Score = 0 1a. Level of Consciousness (LOC) - 0(Alert) 1b. Level of Consciousness (LOC) (Month \T\ Age) - 0(Both) 1c. LOC Commands (Open \T\ Closes Eyes/[employer]) - 0(Both) 2. Best Gaze (Lateral Gaze Paresis) - 0(Normal) 3. Visual Field Loss - 0(No visual loss) 4. Facial Palsy - 0(Normal) 5a. Left Arm: Motor (10-second hold) - 0(No drift) 5b. Right Arm: Motor (10-second hold) - 0(No drift) 6a. Left Leg: Motor (5-second hold - always test supine) - 0(No drift) 6b. Right Leg: Motor (5-second hold - always test supine) - 0(No drift) 7. Limb Ataxia (finger/nose \T\ heel/jennings - test with eyes open) - 0(Absent) 8. Sensory Loss (pinprick arms/legs/face) - 0(Normal) 9. Best Language: Aphasia (description/naming/reading) - 0(No aphasia) 10. Dysarthria (speech clarity - read or repeat words) - 0(Normal) 11. Extinction and Inattention (visual/tactile/auditory/spatial/personal) - 0(No abnormality) Initials: annie Signatures: Dispatcher [employer] Isaiah Erwin MD MD cha Villicano, Steven RN RN sv1 Corrections: (The following items were deleted from the chart) 03: 03:16 PMHx: Seizures; sv1 sv1 03:16 PMHx: Anxiety; sv1 sv1 03:16 PMHx: CVA (1993); sv1 sv1 03:16 PMHx: BRAIN DISORDER, ONE SIDE MORE DEVELOPED THAN THE OTHER; sv1 sv1 03:16 PMHx: WHEELCHAIR BOUND, CAN AMBULATE WITH ASSITANCE. WEAKNESS; (no longer sv1 current. Pt ambulatory and able to perform ADL's); sv1 03:16 PMHx: Depression; sv1 1 03:16 PMHx: mental retardation; sv1 sv1 03:16 PSHx: Cholecystectomy; sv1 sv1
[2021-11-23 05:07] LABS: Barbiturates NEGATIVE (NEGATIVE); Benzodiazepines NEGATIVE (NEGATIVE); Cocaine NEGATIVE (NEGATIVE); METHAMPHETAM NEGATIVE (NEGATIVE); Methadone NEGATIVE (NEGATIVE); Opiates NEGATIVE (NEGATIVE); Phencyclidine NEGATIVE (NEGATIVE); THC Cannibis NEGATIVE (NEGATIVE)
[2021-11-23 05:27] VITALS: BP 125/89; TEMP 98; O2SAT 98
--- NOTE | 2021-11-23 09:57 | RAD REPORT ---
EXAM DESCRIPTION: Pia Single View11/23/2021 3:53 am CLINICAL HISTORY: cough COMPARISON: 2020 FINDINGS: Mild bilateral pulmonary opacities. Heart is normal size IMPRESSION: Mild bilateral pulmonary opacities may indicate mild pneumonia
[2021-11-24 11:44] LABS: Urine Blood Trace-intact (Negative); Urine Glucose Negative (Negative); Urine Protein Negative (Negative)
--- NOTE | 2021-11-24 13:11 | RAD REPORT ---
EXAM DESCRIPTION: CT - Head Brain Wo Cont - 11/23/2021 6:42 am COMPARISON: CT head September 03, 2021 CLINICAL HISTORY: HS MAIN SEIZURE TECHNIQUE: Axial images were obtained from skull base to vertex without intravenous contrast. Imag es viewed on bone and brain windows. Multiplanar reformats were performed. Automated exposure contr ol was utilized on this examination as a dose lowering technique. FINDINGS: Brain parenchyma, ventricles, dura, meninges, and extra-axial spaces: Ventricles and sulci are normal. Chronic right cerebellar infarct/encephalomalacia. No acute intracranial hemorrhage. S mall posterior fossa arachnoid cyst versus pankaj cisterna magna. Agenesis of the corpus callosum. Vascular structures: No hyperdense arteries or veins. Calvarium, mastoid air cells, paranasal sinuses and orbits: The calvarium is normal. The mastoid air cells are clear. Visualized paranasal sinuses are unremarkable. Orbital structures are unremarkable. IMPRESSION: No acute intracranial abnormality. Electronically signed by: Koby Celis MD 11/23/2021 6:08 AM [employer]PER[employer]OR [employer] Due to temporary technical issues with the PACS/Fluency reporting system, reports are being signed by the in house radiologists without review as a courtesy to insure prompt reporting. The interpreting radiologist is fully responsible for the content of the report.
== END 2021-11-23 05:21 | disposition home or self-care (01) ==
LOC: ER 03:08
DX: G40.509 Epileptic seizures related to external causes, not intractable, without status epilepticus (principal); R53.1 Weakness
CPT/HCPCS: 96365; 93005; 85025; 80048; 36415; 83735; 80076; 81003; 84484; 80307; 70450; 71045; 96375; 99284; J1953; J7040

== ENCOUNTER 2021-12-03 11:16 | Emergency (ER) | payer OTHER ==
--- OUTSIDE RECORDS SUMMARY | 2021-12-03 11:19 | XMS REPORT | Continuity of Care Document ---
:1985 Author Organization [facility] t Address [address] [place] [address] Care Team Providers Name Role Phone Elizabeth [...] Type Clinicians Facility Department ID 2021-10-[address] [facility] [id number] [facility] [address] 12:21:25 Jeth[facility] [id number] [facility] 2021-10-[address] [facility] [id number] [address] 12:19:51 Jethro [id number] [facility] 2021-10-29 [facility] [id number] 12:16:00 Jethro [id number] [facility] 2020-10-15 2020-10-15 Outpatient [facility] [id number] [facility] 2020-09-25 2020-09-25 Outpatient [facility] [id number] [facility] Results This patient has no known results.
--- NOTE | 2021-12-03 12:48 | RAD REPORT ---
EXAM DESCRIPTION: CT - Head Brain Wo Cont - 12/03/2021 12:37 pm CLINICAL HISTORY: PAIN COMPARISON: Head Brain Wo Cont dated 11/23/2021; Head Brain Wo Cont dated 09/23/2021 TECHNIQUE: All CT scans are performed using dose optimization technique as appropriate and may inclu de automated exposure control or mA/KV adjustment according to patient size. FINDINGS: No intracranial hemorrhage, hydrocephalus or extra-axial fluid collection.No midline shift . 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 Small mucous retention cyst versus polyp left maxillary antrum measuring 15 mm. The paranasal sinuses and mastoids are otherwise clear. The calvarium is intact. IMPRESSION: No acute intracranial abnormality.
[2021-12-03] MEDS ORDERED: LORazepam 2 MG/ML VIAL ONE (13:00)
[2021-12-03] MEDS ORDERED: LEVETIRACETAM 500 MG/5 ML VIAL IV ONE (13:03)
[2021-12-03] MEDS ORDERED: NA CHLORIDE 0.9% 100 ML IV ONE (13:03)
[2021-12-03 13:58] LABS: Absolute Lymphocytes (CBC) 2.7 K/uL (0.7-4.9); Hematocrit 46.7 % (39.6-49.0); Lymphocytes % 40.5 % (15.3-44.8); MPV 8.3 fL (7.6-11.3)
--- NOTE | 2021-12-03 14:06 | ER ---
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 Patient recently placed on Melatonin an Mag citrate yesterday. Coronavirus screen: Vaccine status: Patient reports receiving the 1st dose of the Covid vaccine. John and John. Ebola Screen: Patient negative for fever greater than or equal to 101.5 degrees Fahrenheit, and additional compatible Ebola Virus Disease symptoms Patient denies exposure to infectious person. Patient denies travel to an Ebola-affected area in the 21 days before illness onset. Initial Sepsis Screen: Does the patient meet any 2 criteria? No. Patient's initial sepsis screen is negative. Does the patient have a suspected source of infection? No. Patient's initial sepsis screen is negative. Risk Assessment: Do you want to hurt yourself or someone else? Patient reports no desire to harm self or others. Onset of symptoms was December 03, 2021 at 08:30. 11:34 Method Of Arrival: Ambulatory j9 11:34 Acuity: PAULINE 3 jg9 Triage Assessment: 11:39 General: Appears in no apparent distress. Behavior is calm, cooperative. Pain: Denies jg9 pain. Historical: - Allergies: 11:37 No Known Allergies; jg9 - PMHx: 11:37 cva; brain disorder; jg9 - Immunization history:: Client reports receiving the John \T\ John single-dose vaccine. - Social history:: Smoking status: Patient denies any tobacco usage or history of. - Family history:: not pertinent. Screenin:39 Abuse screen: Denies threats or abuse. Denies injuries from another. Nutritional jg9 screening: No deficits noted. Tuberculosis screening: No symptoms or risk factors identified. Fall Risk None identified. Assessment: 12:10 General: Appears in no apparent distress. comfortable, Behavior is calm, cooperative. ww Pain: Denies pain. Neuro: Level of Consciousness is awake, alert, obeys commands, Oriented to person, place, time, situation, Speech is normal. Neuro: Reports blindness . Cardiovascular: Capillary refill < 3 seconds Patient's skin is warm and dry. Chest pain is denied. Respiratory: Airway is patent Respiratory effort is even, unlabored, Respiratory pattern is regular, symmetrical. GI: No signs and/or symptoms were reported involving the gastrointestinal system. : No signs and/or symptoms were reported regarding the genitourinary system. EENT: Eyes pupils constricting to light but not able to track or follow . Musculoskeletal: Circulation, motion, and sensation intact. 13:00 Neuro: Seizure activity noted at this time. Type of seizure: grand mal seizure. patient ww started having multiple seizures back to back. Dr. Reyes at bedside, verbal order for Ativan 2mg and Keppra 1000mg IV. 13:15 Neuro: Seizure activity noted at this time. ww 13:25 Reassessment: patient shakes head to not feeling well. Mom and Dr. Carrillo at bedside. .ww 13:30 Neuro: Seizure activity noted at this time. ww Vital Signs: 11:34 BP 142 / 95; Pulse 72; Resp 17 S; Temp 97.6; Pulse Ox 98% on R/A; Weight 78.93 kg (R); jg9 Height 5 ft. 5 in. (165.10 cm) (R); 13:15 BP 165 / 86; Pulse 94; Resp 27; Pulse Ox 99% on R/A; ww 14:55 BP 125 / 83; Pulse 90; Resp 16; Pulse Ox 99% on R/A; ab2 11:34 Body Mass Index 28.95 (78.93 kg, 165.10 cm) jg9 ED Course: 11:24 Patient arrived in ED. ds1 11:37 Triage completed. jg9 11:40 Rosalie Reyes MD is Attending Physician. ma2 11:40 Arm band placed on left wrist. jg9 12:05 Wood, Ashley, RN is Primary Nurse. ww 12:10 Patient has correct armband on for positive identification. Bed in low position. Call ww light in reach. Side rails up X2. Adult w/ patient. Pulse ox on. NIBP on. 12:37 Head Brain Wo Cont In Process Unspecified. EDMS 13:00 Inserted saline lock: 20 gauge in right antecubital area, using aseptic technique. ww 14:05 Satinder Arreola MD is Referral Physician. ma2 14:55 No provider procedures requiring assistance completed. IV discontinued, intact, ab2 bleeding controlled, No redness/swelling at site. Pressure dressing applied. Administered Medications: 13:00 Drug: Ativan (LORazepam) 2 mg Route: IVP; Site: right antecubital; ww 13:05 Drug: Keppra (levETIRAcetam) 1000 mg Route: IV; Rate: bolus; Site: right antecubital; ww Outcome: 14:05 Discharge ordered by . ma2 14:55 Discharged to home via wheelchair, with family. ab2 14:55 Condition: good 14:55 Discharge instructions given to patient, family, Instructed on discharge instructions, follow up and referral plans. Demonstrated understanding of instructions, follow-up care. 14:56 Patient left the ED. ab2 Signatures: Dispatcher [employer] [facility] Wendy Leyva ds1 Rosalie Reyes MD MD ma2 Radha Delaney, RN RN jg9 Ashley Davila, RN RN ww Josue Robins ab2
--- NOTE | 2021-12-03 14:06 | EDPHYS ---
Physician Documentation [facility] Name: Shan Faye Age: 36 yrs Sex: Male : 1985 Arrival Date: 12/03/2021 Time: 11:24 Bed 19 Private MD: ED Physician Rosalie Reyes HPI: 12/03 14:03 This 36 yrs old Male presents to ER via Ambulatory with complaints of Allergic ma2 Reaction to medication. 14:03 Patient presents with symptoms that he is unable to see for 2 days, and he was sent ma2 here by his neurologist Dr. Arreola, whom I discussed with him all findings, he advised that this patient stated that he is unable to see however mom said that he is able to take the trash out, and drive. Parents also state he is possibly has pseudoseizure. As well CT head is unremarkable, patient had few pseudoseizures in the ER. I discussed this finding with Dr. Arreola and he advised to send him to the clinic. And he will take it from there.. Historical: - Allergies: 11:37 No Known Allergies; jg9 - PMHx: 11:37 cva; brain disorder; jg9 - Immunization history:: Client reports receiving the John \T\ John single-dose vaccine. - Social history:: Smoking status: Patient denies any tobacco usage or history of. - Family history:: not pertinent. ROS: 14:03 Constitutional: Negative for fever, chills, and weight loss. ma2 14:03 All other systems are negative. Exam: 14:03 Constitutional: This is a well developed, well nourished patient who is awake, alert, ma2 and in no acute distress. Head/Face: Normocephalic, atraumatic. Eyes: Pupils equal round and reactive to light, extra-ocular motions intact. Lids and lashes normal. Conjunctiva and sclera are non-icteric and not injected. Cornea within normal limits. Periorbital areas with no swelling, redness, or edema. ENT: Nares patent. No nasal discharge, no septal abnormalities noted. Tympanic membranes are normal and external auditory canals are clear. Oropharynx with no redness, swelling, or masses, exudates, or evidence of obstruction, uvula midline. Mucous membranes moist. Neck: Trachea midline, no thyromegaly or masses palpated, and no cervical lymphadenopathy. Supple, full range of motion without nuchal rigidity, or vertebral point tenderness. No Meningismus. Chest/axilla: Normal chest wall appearance and motion. Nontender with no deformity. No lesions are appreciated. Cardiovascular: Regular rate and rhythm with a normal S1 and S2. No gallops, murmurs, or rubs. Normal PMI, no JVD. No pulse deficits. Respiratory: Lungs have equal breath sounds bilaterally, clear to auscultation and percussion. No rales, rhonchi or wheezes noted. No increased work of breathing, no retractions or nasal flaring. Abdomen/GI: Soft, non-tender, with normal bowel sounds. No distension or tympany. No guarding or rebound. No evidence of tenderness throughout. MS/ Extremity: Pulses equal, no cyanosis. Neurovascular intact. Full, normal range of motion. Neuro: Awake and alert, GCS 15, oriented to person, place, time, and situation. Cranial nerves II-XII grossly intact. Motor strength 5/5 in all extremities. Sensory grossly intact. Cerebellar exam normal. Normal gait. Vital Signs: 11:34 BP 142 / 95; Pulse 72; Resp 17 S; Temp 97.6; Pulse Ox 98% on R/A; Weight 78.93 kg (R); jg9 Height 5 ft. 5 in. (165.10 cm) (R); 13:15 BP 165 / 86; Pulse 94; Resp 27; Pulse Ox 99% on R/A; ww 14:55 BP 125 / 83; Pulse 90; Resp 16; Pulse Ox 99% on R/A; ab2 11:34 Body Mass Index 28.95 (78.93 kg, 165.10 cm) jg9 MDM: 14:03 Differential diagnosis: Pseudoseizure, psych, versus conversion disorder, unlikely ma2 reaction to medication. Data reviewed: vital signs, nurses notes. Counseling: I had a detailed discussion with the patient and/or guardian regarding: the historical points, exam findings, and any diagnostic results supporting the discharge/admit diagnosis, the presence of at least one elevated blood pressure reading (>120/80) during this emergency department visit, the need for outpatient follow up. Response to treatment: the patient's symptoms have markedly improved after treatment. 14:05 Patient medically screened. ma2 12/03 13:15 Order name: CBC with Diff; Complete Time: 14:36 ma2 12/03 13:15 Order name: CMP; Complete Time: 14:36 ma2 12/03 12:34 Order name: Head Brain Wo Cont; Complete Time: 13:14 EDMS Administered Medications: 13:00 Drug: Ativan (LORazepam) 2 mg Route: IVP; Site: right antecubital; ww 13:05 Drug: Keppra (levETIRAcetam) 1000 mg Route: IV; Rate: bolus; Site: right antecubital; ww Disposition Summary: 12/03/21 14:05 Discharge Ordered Location: Home ma2 Condition: Stable ma2 Diagnosis - Conversion disorder with seizures or convulsions - Pseudoseizures ma2 Followup: ma2 - With: Satinder Arreola MD - When: Tomorrow - Reason: If symptoms return, Continuance of care Discharge Instructions: - Discharge Summary Sheet ma2 - Non-Epileptic Seizures, Adult ma2 Forms: - Medication Reconciliation Form ma2 - Thank You Letter ma2 - Antibiotic Education ma2 - Prescription Opioid Use ma2 Signatures: Dispatcher [employer] EDMS Rosalie Reyes MD MD ma2 Radha Delaney, RN RN jg9 Ashley Davila RN RN ww Corrections: (The following items were deleted from the chart) 12:34 12:11 Head Angio+CT.RAD.BRZ ordered. EDMS EDMS
[2021-12-03 14:07] LABS: Albumin 4.4 g/dL (3.4-5.0); Bilirubin Total 0.7 mg/dL (0.2-1.0); Protein, Total 8.2 g/dL (6.4-8.2)
[2021-12-03 15:21] VITALS: TEMP 97.6
[2021-12-03 15:27] VITALS: O2SAT 99
[2021-12-03 15:29] VITALS: BP 125/83
== END 2021-12-03 14:56 | disposition home or self-care (01) ==
LOC: ER 11:16
DX: F44.5 Conversion disorder with seizures or convulsions (principal); Z86.73 Personal history of transient ischemic attack (TIA), and cerebral infarction without residual deficits
CPT/HCPCS: 85025; 36415; 80053; 70450; 96375; 96374; 99284; J1953

== ENCOUNTER 2021-12-11 19:20 | Inpatient (IN) | payer OTHER ==
--- OUTSIDE RECORDS SUMMARY | 2021-12-11 19:23 | XMS REPORT | Continuity of Care Document ---
:[address] [facility] [place] [place] t Address [address] [place] [address] Care Team Providers Name Role Phone Elizabeth [...] Facility Department ID 2021-10-29 Outpatient JASMIN Allen [facility] [id number] 12:21:25 Jeth[place] [id number] [facility] 2021-10-[address] [facility]andro[facility]VID [facility] [id number] 12:19:51 Jeth[place] [id number] [facility] 2021-10-29 [facility] [id number] 12:16:00 Jethro [id number] [facility] 2020-10-15 2020-10-15 Outpatient [facility] [id number] [facility]00 [facility] 2020-09-25 2020-09-25 Outpatient [facility] [id number] [facility]00 [facility] Results This patient has no known results.
[2021-12-11 20:42] LABS: Absolute Lymphocytes (CBC) 1.8 K/uL (0.7-4.9); Hematocrit 43.5 % (39.6-49.0); Lymphocytes % 21.6 % (15.3-44.8); MPV 8.1 fL (7.6-11.3)
[2021-12-11 20:46] LABS: Protime INR 0.97
[2021-12-11 20:53] LABS: Urine Blood Trace-intact (Negative); Urine Glucose Negative (Negative); Urine Protein Negative (Negative); Urine Specific Gravity >=1.030 (1.005-1.030)
[2021-12-11 20:55] LABS: Potassium 3.6 mmol/L (3.5-5.1); Sodium Level 138 mmol/L (136-145)
[2021-12-11 20:56] LABS: Albumin 4.1 g/dL (3.4-5.0); BUN Blood Urea Nitrogen 11 mg/dL (7-18); Bicarbonate 26 mmol/L (21-32); Glucose Level 121 mg/dL (74-106)
[2021-12-11 21:04] LABS: ALT/SGPT 27 U/L (12-78); AST/SGOT 14 U/L (15-37); Alkaline Phosphatase 68 U/L (45-117); Bilirubin Direct 0.1 mg/dL (0-0.2); Bilirubin Total 0.5 mg/dL (0.2-1.0); Protein, Total 7.7 g/dL (6.4-8.2)
[2021-12-11 21:08] LABS: Barbiturates NEGATIVE (NEGATIVE); Benzodiazepines NEGATIVE (NEGATIVE); Cocaine NEGATIVE (NEGATIVE); METHAMPHETAM NEGATIVE (NEGATIVE); Methadone NEGATIVE (NEGATIVE); Opiates NEGATIVE (NEGATIVE); Phencyclidine NEGATIVE (NEGATIVE); THC Cannibis NEGATIVE (NEGATIVE)
--- NOTE | 2021-12-11 21:08 | ER ---
Nurse's Notes [facility] Name: Shan Faye Age: 36 yrs Sex: Male : 1985 Arrival Date: 12/11/2021 Time: 19:23 Bed 28 [facility] MD: Diagnosis: Other visual disturbances Presentation: 12/11 19:38 Chief complaint: Patient states: this evening my eyes began to shut, pt unable to see. ld1 Coronavirus screen: At this time, the client does not indicate any symptoms associated with coronavirus-19. Ebola Screen: No symptoms or risks identified at this time. Initial Sepsis Screen: Does the patient meet any 2 criteria? No. Patient's initial sepsis screen is negative. Does the patient have a suspected source of infection? No. Patient's initial sepsis screen is negative. Risk Assessment: Do you want to hurt yourself or someone else? Patient reports no desire to harm self or others. Onset of symptoms was December 11, 2021. 19:38 Method Of Arrival: Wheelchair ld1 19:38 Acuity: PAULINE 3 ld1 Triage Assessment: 19:38 General: Appears in no apparent distress. comfortable, Behavior is calm, cooperative, ld1 appropriate for age. Pain: Denies pain. EENT: Reports vision loss since this evening. Neuro: Level of Consciousness is awake, alert, obeys commands, Oriented to person, place, time, situation. Respiratory: Airway is patent Respiratory effort is even, unlabored. Historical: - Allergies: 19:38 No Known Allergies; ld1 - PMHx: 19:38 brain disorder; CVA; ld1 - PSHx: 19:38 Cholecystectomy; ld1 - Immunization history:: Adult Immunizations up to date, Client reports receiving the 2nd dose of the Covid vaccine. - Social history:: Smoking status: Patient denies any tobacco usage or history of. Patient/guardian denies using alcohol. Screenin:08 Abuse screen: Denies threats or abuse. Nutritional screening: No deficits noted. ll3 Tuberculosis screening: No symptoms or risk factors identified. 22:23 Fall Risk No fall in past 12 months (0 pts). Secondary diagnosis (15 points) CVA, IV ll3 access (20 points). Ambulatory Aid- None/Bed Rest/Nurse Assist (0 pts). Gait- Normal/Bed Rest/Wheelchair (0 pts) Mental Status- Oriented to own ability (0 pts). Total English Fall Scale indicates Low Risk Score (25-44 pts). Fall prevention measures have been instituted. Side Rails Up X 2 Family Present and informed to notify staff if they need to leave bedside. Assessment: 20:08 General: Appears comfortable, Behavior is calm, cooperative. Pain: Denies pain. Neuro: ll3 Level of Consciousness is awake, alert, obeys commands, Oriented to person, place, time, situation, Pupils are PERRLA, Caregiver states pt reported that he is unable to open both eyes. Cardiovascular: Patient's skin is warm and dry. Respiratory: Respiratory effort is even, unlabored, Respiratory pattern is regular, symmetrical. EENT: Parent/caregiver reports the patient having states it started in right eye about 40 minutes ago and then when they got here his left eye was unable to open.. Derm: Skin is pink, warm \\T\\ dry. Musculoskeletal: Circulation, motion, and sensation intact. 20:20 Reassessment: Pt is opening both eyes and states he is able to see now. ll3 21:20 Reassessment: No changes from previously documented assessment. ll3 22:21 Reassessment: Patient is alert, oriented x 3, equal unlabored respirations, skin ll3 warm/dry/pink. Eyes open, PERRLA. 23:30 Reassessment: No changes from previously documented assessment. Patient and/or family ll3 updated on plan of care and expected duration. Pain level reassessed. Patient is alert, oriented x 3, equal unlabored respirations, skin warm/dry/pink. 12/12 01:00 Reassessment: No changes from previously documented assessment. Patient and/or family ll3 updated on plan of care and expected duration. Pain level reassessed. Patient is alert, oriented x 3, equal unlabored respirations, skin warm/dry/pink. Vital Signs: 12/11 19:38 BP 146 / 97; Pulse 85; Resp 18; Temp 98.6(O); Pulse Ox 97% on R/A; Weight 81.65 kg; ld1 Height 5 ft. 7 in. (170.18 cm); Pain 0/10; 21:00 BP 132 / 89; Pulse 83; Pulse Ox 98% on R/A; ll3 22:25 BP 119 / 80; Pulse 74; Pulse Ox 96% on R/A; ll3 23:30 BP 114 / 84; Pulse 67; Resp 15; Pulse Ox 96% on R/A; ll3 12/12 01:00 BP 114 / 76; Pulse 63; Resp 16; Pulse Ox 96% on R/A; ll3 04:45 BP 118 / 84; Pulse 95; Resp 14; Pulse Ox 98% ; cg1 08:00 BP 134 / 91; Pulse 75; Resp 16; Temp 97.9; Pulse Ox 94% ; td 12/11 19:38 Body Mass Index 28.19 (81.65 kg, 170.18 cm) ld1 ED Course: 12/11 19:23 Patient arrived in ED. jj6 19:38 Triage completed. ld1 19:38 Arm band placed on right wrist. ld1 19:42 Kyree Partida, PILLO is Primary Nurse. as6 19:51 Dorian Yoon MD is Attending Physician. 7 20:08 Patient has correct armband on for positive identification. Bed in low position. Call ll3 light in reach. Side rails up X 1. Adult w/ patient. 21:07 Bayron Mcdonald is Hospitalizing Provider. 7 21:22 No provider procedures requiring assistance completed. Initial lab(s) drawn, by az, 3 sent to lab. Urine collected: clean catch specimen, EKG done, COVID swab sent to lab. Inserted saline lock: 22 gauge in left antecubital area, using aseptic technique. Blood collected. 22:23 COVID-19 SARS RT PCR (Document "Date of Onset" if Symptomatic) Sent. ll3 12/12 01:07 Patient admitted, IV remains in place. intact, No redness/swelling at site. ll3 Administered Medications: No medications were administered Outcome: 12/11 21:08 Decision to Hospitalize by Provider. 7 12/12 01:07 Admitted to ER Hold. Please see [facility] for further documentation. ll3 Condition: stable Instructed on the need for admit. 16:05 Patient left the ED. jl7 Signatures: Mary Jane Potter RN RN jl7 Zaira Rodriguez td, Maurice, MD MD 7 Keshawn Yee 1 Neida Chaparro RN RN 1 Radha Dominguez j6 Kyree Partida, RN RN as6 Yonathan Aazr RN RN ll3 Corrections: (The following items were deleted from the chart) 12/11 22:25 21:20 BP 119 / 80; Pulse 74bpm; Pulse Ox 96% RA; ll3 ll3 12/12 01:20 03 22:21 Reassessment: Patient is alert, oriented x 3, equal unlabored respirations, ll3 skin warm/dry/pink. Patient is alert/active/playful, equal unlabored respirations, skin warm/dry/pink. Eyes open, PERRLA, ll3
--- NOTE | 2021-12-11 21:08 | EDPHYS ---
Physician Documentation [facility] Name: Shan Faye Age: 36 yrs Sex: Male : 1985 Arrival Date: 12/11/2021 Time: 19:23 Bed 28 Private MD: CLAUDE Physician Dorian Yoon HPI: 12/11 20:44 This 36 yrs old Male presents to ER via Wheelchair with complaints of Loss Of mh7 Vision. 20:44 The patient is experiencing decreased vision. Onset: The symptoms/episode mh7 began/occurred today, This evening. Duration: the symptoms are continuous. Aggravated by closing eye, Alleviated by nothing. Associated signs and symptoms: Pertinent negatives: chills, dizziness, ear ache, fever, headache, runny nose. Patient wears glasses. Severity of symptoms: At their worst the symptoms were moderate today, in the emergency department the symptoms have improved moderately. The patient has experienced a previous episode, last week. The patient has been recently seen by a physician: Dr. Arreola. Historical: - Allergies: 19:38 No Known Allergies; ld1 - PMHx: 19:38 brain disorder; CVA; ld1 - PSHx: 19:38 Cholecystectomy; ld1 - Immunization history:: Adult Immunizations up to date, Client reports receiving the 2nd dose of the Covid vaccine. - Social history:: Smoking status: Patient denies any tobacco usage or history of. Patient/guardian denies using alcohol. ROS: 20:44 Constitutional: Negative for fever, chills, and weight loss, ENT: Negative for injury, mh7 pain, and discharge, Neck: Negative for injury, pain, and swelling, Cardiovascular: Negative for chest pain, palpitations, and edema, Respiratory: Negative for shortness of breath, cough, wheezing, and pleuritic chest pain, Abdomen/GI: Negative for abdominal pain, nausea, vomiting, diarrhea, and constipation, Back: Negative for injury and pain, : Negative for injury, bleeding, discharge, and swelling, MS/Extremity: Negative for injury and deformity, Skin: Negative for injury, rash, and discoloration, Psych: Negative for depression, anxiety, suicide ideation, homicidal ideation, and hallucinations, Allergy/Immunology: Negative for hives, rash, and allergies, Endocrine: Negative for neck swelling, polydipsia, polyuria, polyphagia, and marked weight changes, Hematologic/Lymphatic: Negative for swollen nodes, abnormal bleeding, and unusual bruising. Exam: 20:44 Constitutional: This is a well developed, well nourished patient who is awake, alert, mh7 and in no acute distress. Head/Face: Normocephalic, atraumatic. 20:44 ENT: Nares patent. No nasal discharge, no septal abnormalities noted. Tympanic membranes are normal and external auditory canals are clear. Oropharynx with no redness, swelling, or masses, exudates, or evidence of obstruction, uvula midline. Mucous membranes moist. Neck: Trachea midline, no thyromegaly or masses palpated, and no cervical lymphadenopathy. Supple, full range of motion without nuchal rigidity, or vertebral point tenderness. No Meningismus. Chest/axilla: Normal chest wall appearance and motion. Nontender with no deformity. No lesions are appreciated. Cardiovascular: Regular rate and rhythm with a normal S1 and S2. No gallops, murmurs, or rubs. Normal PMI, no JVD. No pulse deficits. Respiratory: Lungs have equal breath sounds bilaterally, clear to auscultation and percussion. No rales, rhonchi or wheezes noted. No increased work of breathing, no retractions or nasal flaring. Abdomen/GI: Soft, non-tender, with normal bowel sounds. No distension or tympany. No guarding or rebound. No evidence of tenderness throughout. Back: No spinal tenderness. No costovertebral tenderness. Full range of motion. Skin: Warm, dry with normal turgor. Normal color with no rashes, no lesions, and no evidence of cellulitis. 20:44 Eyes: Periorbital structures: appear normal, Pupils: equal, round, and reactive to light and accomodation, Extraocular movements: Right side lateral gaze, chronic, Conjunctiva: normal, Corneas: are normal, Sclera: no appreciated abnormality, Lids and lashes: appear normal, funduscopic exam reveals no obvious abnormalities, Patient noticed to be clenching eyes closed but will open periodically. 20:44 Musculoskeletal/extremity: Right-sided weakness, chronic since CVA as a child. 20:44 Neuro: Orientation: is normal, Mentation: no acute changes, per family, Memory: no acute changes, per family, Cranial nerves: unable to test, the patient refuses to cooperate, Cerebellar function: unable to test, the patient refuses to cooperate, Motor: strength is 5/5 in the left arm and left leg, Strength is 3/5 in the right arm and right leg, Sensation: no obvious gross deficits, Gait: not tested. seizure activity, is not displayed by the patient, Abnormal movements: there are no abnormal movements. 20:44 ECG was reviewed by the Attending Physician. [facility] Vital Signs: 19:38 BP 146 / 97; Pulse 85; Resp 18; Temp 98.6(O); Pulse Ox 97% on R/A; Weight 81.65 kg; ld1 Height 5 ft. 7 in. (170.18 cm); Pain 0/10; 21:00 BP 132 / 89; Pulse 83; Pulse Ox 98% on R/A; ll3 22:25 BP 119 / 80; Pulse 74; Pulse Ox 96% on R/A; ll3 23:30 BP 114 / 84; Pulse 67; Resp 15; Pulse Ox 96% on R/A; ll3 03 01:00 BP 114 / 76; Pulse 63; Resp 16; Pulse Ox 96% on R/A; ll3 04:45 BP 118 / 84; Pulse 95; Resp 14; Pulse Ox 98% ; cg1 08:00 BP 134 / 91; Pulse 75; Resp 16; Temp 97.9; Pulse Ox 94% ; td 03 19:38 Body Mass Index 28.19 (81.65 kg, 170.18 cm) ld1 MDM: 12/11 21:02 Differential diagnosis: Acute iritis of Conversion disorder. Data reviewed: vital [facility] signs, nurses notes. Data interpreted: Pulse oximetry: on room air is 97 %. Interpretation: normal. 21:04 Physician consultation: Satinder Arreola MD was contacted at 20:15, regarding patient's [facility] condition, and will see patient in inpatient room, would like admission per Dr. Bayron Mcdonald. ED course: Discussed with Dr. Arreola who is patient's neurologist. Patient has had this issue recently was evaluated by artificial glass eye maker without any eye abnormalities discovered. He has ordered outpatient MRI which has not been scheduled. Recommend admission to hospital for observation and obtain MRI brain with and without contrast tomorrow. From previous visit head normal CT head so no recommendation to repeat CT or other imaging studies in the ED. Discussed with patient and his mother and now patient in room with her eyes wide open and able to see without difficulty. They are agreeable with plan as discussed with Dr. Arreola.. 21:08 Patient medically screened. [facility] 12/11 20:11 Order name: Acetaminophen [facility] 12/11 20:11 Order name: Basic Metabolic Panel [facility] 12/11 20:11 Order name: CBC with Diff [facility] 12/11 20:11 Order name: ETOH Level [facility] 12/11 20:11 Order name: Hepatic Function [facility] 12/11 20:11 Order name: PT-INR [facility] 12/11 20:11 Order name: Ptt, Activated [facility] 12/11 20:11 Order name: Salicylate [facility] 12/11 20:11 Order name: Urine Drug Screen [facility] 12/11 20:12 Order name: Acetaminophen Level [facility] 12/11 20:12 Order name: Basic Metabolic Panel [facility] 12/11 20:30 Order name: COVID-19 SARS RT PCR (Document "Date of Onset" if Symptomatic) [facility] 12/11 20:31 Order name: SARS-COV-2 RT PCR [facility] 12/11 20:53 Order name: Urine Dipstick-Ancillary [facility] 12/11 20:11 Order name: EKG; Complete Time: 20:12 [facility] 12/11 20:11 Order name: EKG - Nurse/Tech; Complete Time: 20:40 [facility] 12/11 20:11 Order name: IV Saline Lock; Complete Time: 20:41 [facility] 12/11 20:11 Order name: Labs collected and sent; Complete Time: 20:41 [facility] 12/11 20:11 Order name: Urine Dipstick-Ancillary (obtain specimen); Complete Time: 20:59 [facility] 12/12 08:33 Order name: MRI [facility] EC:44 Rate is 87 beats/min. Rhythm is regular, Normal Sinus Rhythm with No ectopy. QRS [place] [facility] is Normal. UT interval is normal. QRS interval is normal. QT interval is normal. No Q waves. T waves are Normal. No ST changes noted. Clinical impression: Normal ECG. Administered Medications: No medications were administered Disposition Summary: 12/11/21 21:08 Hospitalization Ordered Hospitalization Status: Observation [facility] Provider: Bayron Mcdonald Marce Condition: Stable mh7 Problem: an ongoing problem mh7 Symptoms: have improved mh7 Bed/Room Type: Standard mh7 Location: Telemetry/MedSurg (observation)(12/12/21 14:56) em1 Room Assignment: 229(12/12/21 14:56) em1 Diagnosis - Other visual disturbances mh7 Forms: - Medication Reconciliation Form mh7 - SBAR form mh7 Signatures: Dispatcher [employer] EDMS Kate Zepeda RN RN [facility], Steve em1 Dorian Yoon MD MD 7 Neida Chaparro RN RN ld1 Corrections: (The following items were deleted from the chart) 21:12 21:08 Telemetry/MedSurg (observation) mh7 mw 21:12 21:08 mh7 mw 12/12 14:56 03 21:12 [facility] ER HOLD mw em1 12/12 14:56 03 21:12 ERHOLD- mw em1
--- NOTE | 2021-12-11 21:25 | P.HP ---
Certification for Inpatient Patient admitted to: Observation With expected LOS: <2 Midnights Patient will require the following post-hospital care: None Practitioner: I am a practitioner with admitting privileges, knowledge of patient current condition, hospital course, and medical plan of care. Services: Services provided to patient in accordance with Admission requirements found in Title 42 Section 412.3 of the Code of Federal Regulations Patient History Date of Service: 12/11/21 Reason for admission: Vision Loss History of Present Illness: Patient is a 36-year-old male with history of seizure disorder, mental retardation, CVA who presented to the ED with complaints of vision loss. Patient has experienced a similar episode about a week ago. Patient's mother states he was also experiencing some weakness in his right side (some residual from CVA) but has now resolved. Patient sees Dr. Arreola regularly. Patient was recently evaluated by an torpedo specialist and no abnormalities were found. An outpatient MRI was ordered but has not been scheduled. ED provider spoke with Dr. Arreola who recommended admission to hospital for observation and for an MRI with and without contrast for tomorrow morning. Previous visits showed normal head CTs and no indication for repeat CT at this time patient. Other labs WNL. Upon my assessment, patient states his vision is back to normal and no other new deficits are noted. Patient and his mother are agreeable with the plan and have no complaints at this time. Allergies No Known Drug Allergies Allergy (Verified 03/01/18 16:42) Unknown No Known Allergies Allergy (Uncoded 04/05/18 01:16) Unknown Home medications list reviewed: Yes Home Medications: Buspirone HCl [Buspar*] 5 mg PO TID 12/25/15 Citalopram [Celexa*] 20 mg PO DAILY 12/25/15 Lurasidone HCl [Latuda] 1 tab PO BEDTIME 03/01/18 Perampanel [Fycompa] 2 mg PO SEECOM 03/01/18 Apixaban [Eliquis] 5 mg PO BID #60 tablet 09/23/20 Ascorbic Acid [Vitamin C*] 500 mg PO TID #90 tablet 09/23/20 Cholecalciferol (Vitamin D3) [Vitamin D 1000 Iu Tab*] 2,000 unit PO DAILY #60 tab 09/23/20 Insulin Glargine Human [Lantus*] 40 units SQ BID #10 ml 09/23/20 Sitagliptin Phosphate [Januvia*] 100 mg PO DAILY #30 tab 09/23/20 Zinc Sulfate [Zinc Sulfate*] 220 mg PO DAILY #30 cap 09/23/20 levETIRAcetam [Keppra*] 1,500 mg PO BID #180 tab 09/23/20 Azithromycin Tab [Zithromax*] 500 mg PO DAILY #5 tab 04/07/21 guaiFENesin [Robitussin 100MG/5ML*] 10 ml PO QID PRN #30 ucup 04/07/21 - Past Medical/Surgical History Diabetic: No -: anxiety -: brain disorder (one side more developed than the other) -: CVA (1993) -: depression -: seizures -: Cholecystectomy Psychosocial/ Personal History: Patient is disabled and lives with his mother who is is primary rotary cutter operator and POA-Divya - Family History Family History: Reviewed- Non-Contributory - Social History Smoking Status: Never smoker Alcohol use: No CD- Drugs: No Caffeine use: No Place of Residence: Home Review of Systems 10-point ROS is otherwise unremarkable Eyes: Vision Change Physical Examination - Physical Exam General: Alert, In no apparent distress HEENT: Atraumatic, PERRLA, Mucous membr. moist/pink, EOMI, Sclerae nonicteric Neck: Supple, 2+ carotid pulse no bruit, No LAD, Without JVD or thyroid abnormality Respiratory: Clear to auscultation bilaterally, Normal air movement Cardiovascular: Regular rate/rhythm, Normal S1 S2 Gastrointestinal: Normal bowel sounds, No tenderness Musculoskeletal: No tenderness Integumentary: No rashes Neurological: Normal tone, Sensation intact, Normal affect - Studies Laboratory Data (last 24 hrs) 12/11/21 20:32: PT 10.7, INR 0.97, APTT 29.0 12/11/21 20:32: WBC 8.30 D, Hgb 14.7, Hct 43.5, Plt Count 250 12/11/21 20:32: Sodium 138, Potassium 3.6, BUN 11, Creatinine 0.87, Glucose 121 H, Total Bilirubin 0.5, AST 14 L, ALT 27, Alkaline Phosphatase 68 Assessment and Plan - Problems (Diagnosis) (1) Vision changes Current Visit: Yes Status: Acute (2) Seizure disorder Current Visit: No Status: Acute (3) Mental disability Current Visit: Yes Status: Acute - Plan -Patient states that his vision loss has resolved and is not experiencing any new deficits. We will monitor. Patient will be admitted for observation -Dr. Arreola has been notified and wishes for patient to have an MRI of brain with and without contrast. It has been ordered. -We will resume home medications as appropriate. DVT PPx: Lovenox Code: Full Discharge Plan: Home Plan to discharge in: 24 Hours - Advance Directives Does patient have a Living Will: No Does patient have a Durable POA for Healthcare: No - Code Status/Comfort Care Code Status Assessed: Yes (Full) Critical Care: No Time Spent Managing Pts Care (In Minutes): 70
[2021-12-12] MEDS ORDERED: ACETAMINOPHEN 500 MG TAB PO PRN (01:05)
[2021-12-12] MEDS ORDERED: ONDANSETRON 4 MG/2 ML VIAL IV PRN (01:05)
[2021-12-12 03:49] VITALS: BMI 28.1
[2021-12-12] MEDS ORDERED: INFLUENZA VACCINE (for 6+ mo) 0.5 ML DOSE IMVAC ONE (08:00)
--- NOTE | 2021-12-12 08:33 | RAD REPORT ---
EXAM DESCRIPTION: MRI - Brain W/Wo Cont - 12/12/2021 8:06 am CLINICAL HISTORY: Vision Loss COMPARISON: Brain Wo Cont dated 03/01/2018; Brain Wo Cont dated 06/19/2016 TECHNIQUE: Sagittal T1-weighted images were obtained along with PD/heavily T2-weighted and T2-FLAIR images. Axial DWI and ADC mapping sequences were also obtained along with coronal heavily T2-weighted images were obtained. Post contrast enhanced images were obtained. 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 No intracranial hemorrhage, mass or acute infarction. No edema or shift of midline structures. No ext ra-axial fluid collections. Signal voids are seen as a normal finding in the major intracranial vesse ls. No abnormal enhancement. No mastoid effusion.Mucous retention cyst in left maxillary sinus. IMPRESSION: No acute intracranial abnormality. No abnormal enhancement. Chronic findings including a maribel of the corpus callosum and remote cerebellar infarcts.
[2021-12-12] MEDS ORDERED: LORazepam 2 MG/ML VIAL IV ONE (08:38)
[2021-12-12] MEDS ORDERED: LORAZEPAM 1 MG TABLET ONE (08:45)
[2021-12-12] MEDS ORDERED: levETIRAcetam 500 MG TAB ONE ×2 (08:45→13:56)
[2021-12-12] MEDS ORDERED: levETIRAcetam 1,000 MG in NA CHLORIDE 0.9% 100 ML IV ONE (09:00)
[2021-12-12] MEDS: ENOXAPARIN 40 MG/0.4 ML SQ SCH (09:00)
[2021-12-12] MEDS ORDERED: LEVETIRACETAM 500 MG/5 ML VIAL IV ONE ×2 (09:01→14:01)
[2021-12-12] MEDS ORDERED: ENOXAPARIN 40 MG/0.4 ML SQ ONE (09:06)
[2021-12-12] MEDS ORDERED: NA CHLORIDE 0.9% 100 ML IV ONE ×2 (09:06→14:01)
[2021-12-12] MEDS ORDERED: LORazepam 2 MG/ML VIAL ONE ×2 (09:53→13:44)
[2021-12-12] MEDS ORDERED: PERAMPANEL 2 MG PO SCH (10:30)
--- NOTE | 2021-12-12 13:10 | EKG ---
Test Date: 2021-12-11 Test Time: 20:25:03 Wire Transfer Clerk: BERENICE MEASUREMENT RESULTS: Intervals: Rate: 87 SC: 144 QRSD: 92 QT: 364 QTc: 438 [place]: P: 44 SC: 144 QRS: 15 T: 39 INTERPRETIVE STATEMENTS: Normal sinus rhythm Normal ECG Compared to ECG 11/23/2021 04:07:44 No significant changes Electronically Signed On 12-12-21 13:08:04 [employer] DIST[employer]BUT[employer] by Joseph Harris
[2021-12-12] MEDS ORDERED: levETIRAcetam 500 MG in NA CHLORIDE 0.9% 100 ML IV ONE (13:46)
[2021-12-12] MEDS: LORazepam 2 MG/ML VIAL IV PRN ×2 (13:54→16:50)
--- NOTE | 2021-12-12 15:12 | P.PN ---
Subjective Date of Service: 12/12/21 Primary Care Provider: Dr. Arreola Chief Complaint: Vision Loss Patient has had seizures x2 today. He did not take his antiseizure medications this morning. He reports the visual changes are episodic. Currently without any vision changes. Physical Examination - Vital Signs Temperature: 97.8 F Blood Pressure: 120/86 Pulse: 85 Respirations: 19 Pulse Ox (%): 98 - Physical Exam General: In no apparent distress, Other (Drowsy) HEENT: Mucous membr. moist/pink Neck: JVD not distended Respiratory: Clear to auscultation bilaterally, Normal air movement Cardiovascular: No edema, Regular rate/rhythm, Normal S1 S2 Gastrointestinal: Soft and benign, Non-distended Musculoskeletal: No swelling Integumentary: No rashes Neurological: Normal strength at 5/5 x4 extr - Studies Laboratory Data (last 24 hrs) 12/11/21 20:32: PT 10.7, INR 0.97, APTT 29.0 12/11/21 20:32: WBC 8.30 D, Hgb 14.7, Hct 43.5, Plt Count 250 12/11/21 20:32: Sodium 138, Potassium 3.6, BUN 11, Creatinine 0.87, Glucose 121 H, Total Bilirubin 0.5, AST 14 L, ALT 27, Alkaline Phosphatase 68 Assessment And Plan - Current Problems (Diagnosis) (1) Mental disability Current Visit: Yes Status: Acute (2) Vision changes Current Visit: Yes Status: Acute (3) Recurrent seizures Onset Date: 03/02/18 Current Visit: No Status: Acute - Plan MRI of the brain results reviewed with Dr. Arreola. No acute disease to explain his visual changes. Patient with a couple of seizures today. Gave a total of 1500 IV Keppra. Also on IV Ativan as needed for seizures. Dr. Arreola recommend Depakote since patient is too drowsy to take his Fycompa. Optimize electrolyte Continue home antiseizure medications. Planning to discharge once patient is fully awake.
[2021-12-12] MEDS ORDERED: NA CHLORIDE 0.9% IV SCH (16:00)
[2021-12-12] MEDS ORDERED: VALPROATE SODIUM IV SCH (16:00)
[2021-12-12 16:29] VITALS: O2SAT 94
[2021-12-12] MEDS: HOME MED 1 EA UNK (Lurasidone Hcl [Latuda] 20 MG Tablet) PO SCH (21:00)
[2021-12-12] MEDS: levETIRAcetam 500 MG TAB PO SCH (21:21)
[2021-12-13] MEDS: LORazepam 2 MG/ML VIAL IV PRN ×2 (08:30→12:06)
[2021-12-13] MEDS: ENOXAPARIN 40 MG/0.4 ML SQ SCH (09:09)
[2021-12-13] MEDS: levETIRAcetam 500 MG TAB PO SCH ×2 (09:10→20:49)
[2021-12-13] MEDS ORDERED: VALPROATE SODIUM INJ 1,000 MG in NA CHLORIDE 0.9% 100 ML IV ONE (11:00)
--- NOTE | 2021-12-13 13:16 | P.PN ---
Subjective Date of Service: 12/13/21 Primary Care Provider: Dr. Arreola Chief Complaint: Vision Loss Patient reported to have had a seizure this morning. Patient was drowsy and sleeping during my assessment this morning. Physical Examination - Vital Signs Temperature: 97.5 F Blood Pressure: 120/61 Pulse: 100 Respirations: 16 Pulse Ox (%): 99 - Physical Exam General: Other (Drowsy) HEENT: PERRLA Neck: Supple, JVD not distended Respiratory: Clear to auscultation bilaterally, Normal air movement Cardiovascular: No edema, Regular rate/rhythm, Normal S1 S2 Gastrointestinal: Soft and benign, Non-distended, No tenderness Musculoskeletal: No swelling Integumentary: No rashes Neurological: Normal strength at 5/5 x4 extr Assessment And Plan - Current Problems (Diagnosis) (1) Mental disability Current Visit: Yes Status: Acute (2) Vision changes Current Visit: Yes Status: Acute (3) Recurrent seizures Onset Date: 03/02/18 Current Visit: No Status: Acute - Plan Patient reported to have had a seizure this morning Continue home dose Keppra. Mother informed to bring Fycompa his Fycompa so he can take it here. Dr. Arreola seen the patient and recommend IV Depakote. Also on IV Ativan as needed for seizures. Patient started on Depakote. Optimize electrolyte Planning to discharge once patient is fully awake and no more seizures.
--- NOTE | 2021-12-13 16:42 | CON ---
Consultation called because of continued seizures. History Of Present Illness: Mr. 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 He has seizures that are difficult to control. He has been on multip le antiepileptic medications in the past and prior to hospitalization was on Fycompa 4 mg in the morn ing, 8 mg at night and Keppra 1000 mg twice daily. Seizures have been controlled off and on. Emily ledesma, the patient was seen in the hospital 2 weeks ago with complaints of decreasing vision. He was see n by an movement education specialist that could not identify problems with vision in his eyes and he was sent for further evaluation back to my office. He does have a right partial homonymous hemianopsia and some r ight-sided residual weakness from his prior strokes, which involve the posterior circulation. On thi s admission, he has had [id number] seizures and was admitted to [facility] on the and has had IV Keppra, but not his Fycompa. After more seizures this morning, he received Depakote, whi ch he is receiving a 1 g load and will have 500 mg twice daily. His repeat brain MRI shows no acute ischemic or hemorrhagic findings. The study was remarkable for the agenesis of the corpus callosum a nd remote cerebellar infarcts. His blood work revealed normal complete blood count with differential . Coagulation panel was normal. Chemistries essentially normal. Glucose 121, creatinine normal. P otassium, sodium, chloride, all normal. Liver function studies unremarkable. Urinalysis aside from trace blood is normal. Urine toxicology screen is negative. COVID-19 test is negative. Past Medical History: As noted above. Past Surgical History: Cholecystectomy. Allergies: NO KNOWN DRUG ALLERGIES. Family History: Noncontributory. Social History: No use of alcohol, tobacco, or IV drug use. Review of Systems: As noted, the patient has had some problems with decreasing vision despite being able to count finger s and see enough to ambulate without any significant difficulty. No recent fevers, chills, nausea, v omiting, myalgias, arthralgias, rash, headache, weight change. No other active issues upon review of systems. Physical Examination: Vital Signs: Blood pressure 120/77, pulse 88, respiratory rate 16, temperature 97.4, oxygen saturati on 97%. Weight 180 pounds, height 5 feet 7 inches, BMI 28.2. General: Mr. Faye is resting in bed at the time of my evaluation. He was somewhat drowsy after re ceiving a load of Keppra, but he did answer questions appropriately, opened his eyes, and moved the a marvel at baseline. On general examination, he has high frontal bossing and extended chin. HEENT: Otherwise, he is actually atraumatic. Sclerae anicteric. Oropharynx is moist. Neck: Supple. Chest: Clear. Abdomen: Soft. Extremities: Show no cyanosis, clubbing, or edema. Neurological: Subtle right upper and lower extremity weakness. He has a right visual field deficit for both eyes. Otherwise, on cranial nerves, no additional focal deficits. Motor is noted. Right c ompared to the left upper and lower extremities show weakness. Coordination is slow, but intact in u pper and lower extremities. Sensation decreased in the right compared to the left. Coordination int act in both lower extremities. In terms of gait, he had multiple seizures and was not ambulated. Assessment: Mr. Faye is a 36-year-old patient with a history of multiple strokes, developmental de lay, agenesis of the corpus callosum, refractory complex partial seizures, who is now admitted with m ultiple seizures. He is having a right visual field deficit and is now on Depakote, Keppra, and he s hould be on his Fycompa 4 mg in the morning and 8 at night. Plan: 1.Medication regimen is as stated above. 2.He may receive Ativan as needed to stop breakthrough seizures. 3.If he still in the hospital when the EEG is available, we will order an EEG may be next Wednesday. O therwise, if he returns to his baseline, he may go back home on a regimen of Keppra 1000 mg twice murray ly. Depakote 500 mg twice daily, and Fycompa 4 mg in the morning and 8 mg at night. He should follo w up in Dr. Arreola's office within 2 weeks and he should have blood levels on Keppra, Fycompa, and Depakote. LB/MODL Voice ID: [id number] Report ID: [id number]
--- NOTE | 2021-12-13 17:58 | P.PN ---
Date of Service: 12/13/21 Patient not responding to multiple doses of antiepileptics and having multiple seizures. About 7 seizure episodes since this morning. Case discussed with Dr. Arreola and patient started on IV Depakote. Diagnosis: Status epilepticus. Plan: Continue IV Depakote Continue home dose oral Keppra and Fycompa. Anticipated length of stay-2 days.
[2021-12-13] MEDS ORDERED: NA CHLORIDE 0.9% 100 ML ONE (20:20)
[2021-12-13] MEDS: VALPROATE SODIUM INJ 500 MG in NA CHLORIDE 0.9% 100 ML IV SCH (20:49)
[2021-12-13] MEDS: HOME MED 1 EA UNK (Lurasidone Hcl [Latuda] 20 MG Tablet) PO SCH (20:50)
[2021-12-13] MEDS ORDERED: PERAMPANEL 8 MG PO SCH (21:00)
[2021-12-14] MEDS ORDERED: PERAMPANEL 4 MG PO SCH (09:00)
[2021-12-14] MEDS: VALPROATE SODIUM INJ 500 MG in NA CHLORIDE 0.9% 100 ML IV SCH (09:03)
[2021-12-14] MEDS: ENOXAPARIN 40 MG/0.4 ML SQ SCH (09:05)
[2021-12-14] MEDS: levETIRAcetam 500 MG TAB PO SCH (09:05)
--- NOTE | 2021-12-14 15:10 | P.DS ---
Admission Date: 12/13/21 Discharge Date: 12/14/21 Primary Care Provider: Dr. Arreola Disposition: ROUTINE DISCHARGE Discharge Condition: FAIR Reason for Admission: Vision Loss - Problems (1) Mental disability Current Visit: Yes Status: Acute (2) Vision changes Current Visit: Yes Status: Acute (3) Recurrent seizures Onset Date: 03/02/18 Current Visit: No Status: Acute Brief History of Present Illness: Patient is a 36-year-old male with history of seizure disorder, mental retardation, CVA who presented to the ED with complaints of intermittent vision loss. Patient has experienced a similar episode about a week ago. Patient's mother states he was also experiencing some weakness in his right side (some residual from CVA) but has now resolved. Patient sees Dr. Arreola regularly. Patient was recently evaluated by an nutrient management specialist and no abnormalities were found. An outpatient MRI was ordered but was not done yet. ED provider spoke with Dr. Arreola who recommended admission to hospital for observation and for an MRI of the brain to be done. Previous visits showed normal head CTs and no indication for repeat CT at this time patient. Examination in the ED revealed no neurologic deficit. Patient stated his vision loss had resolved. Patient hospitalized for further management. Hospital Course: Patient admitted to the medical floor had an MRI of the brain done the following day which was unremarkable with no acute changes. He experienced multiple seizure episodes. This was managed with his home dose Keppra, Fycompa and additional Depakote per neurology recommendation. Seizures finally resolved. Today patient is awake and alert. He is deemed stable for discharge per neurology. Dr. Arreola recommend adding Depakote to his home medications which include Keppra and Fycompa at least for the next couple of weeks. He will follow with Dr. Arreola as an outpatient for further medication adjustment. Vital Signs/Physical Exam: Temp Pulse Resp BP Pulse Ox 97.9 F 84 18 112/76 96 12/14/21 12:00 12/14/21 12:00 12/14/21 12:00 12/14/21 12:00 12/14/21 12:00 General: Alert, In no apparent distress, Oriented x3 HEENT: Mucous membr. moist/pink Respiratory: Clear to auscultation bilaterally, Normal air movement Cardiovascular: No edema, Regular rate/rhythm, Normal S1 S2 Gastrointestinal: Soft and benign, Non-distended, No tenderness Musculoskeletal: No swelling Integumentary: No rashes Neurological: Normal speech, Normal strength at 5/5 x4 extr, Cranial nerves 3-12 intact Laboratory Data at Discharge: WBC 8.30 K/uL (4.3-10.9) D 12/11/21 20:32 Hgb 14.7 g/dL (13.6-17.9) 12/11/21 20:32 Hct 43.5 % (39.6-49.0) 12/11/21 20:32 Plt Count 250 K/uL (152-406) 12/11/21 20:32 PT 10.7 SECONDS (9.5-12.5) 12/11/21 20:32 INR 0.97 12/11/21 20:32 APTT 29.0 SECONDS (24.3-36.9) 12/11/21 20:32 Sodium 138 mmol/L (136-145) 12/11/21 20:32 Potassium 3.6 mmol/L (3.5-5.1) 12/11/21 20:32 BUN 11 mg/dL (7-18) 12/11/21 20:32 Creatinine 0.87 mg/dL (0.55-1.3) 12/11/21 20:32 Glucose 121 mg/dL (74-106) H 12/11/21 20:32 Total Bilirubin 0.5 mg/dL (0.2-1.0) 12/11/21 20:32 AST 14 U/L (15-37) L 12/11/21 20:32 ALT 27 U/L (12-78) 12/11/21 20:32 Alkaline Phosphatase 68 U/L (45-117) 12/11/21 20:32 Home Medications: Buspirone HCl [Buspar*] 5 mg PO TID 12/25/15 Citalopram [Celexa*] 20 mg PO DAILY 12/25/15 Lurasidone HCl [Latuda] 1 tab PO BEDTIME 03/01/18 Perampanel [Fycompa] 4 mg PO SEECOM MDD 12 MG 03/01/18 Apixaban [Eliquis] 5 mg PO BID #60 tablet 09/23/20 Ascorbic Acid [Vitamin C*] 500 mg PO TID #90 tablet 09/23/20 Cholecalciferol (Vitamin D3) [Vitamin D 1000 Iu Tab*] 2,000 unit PO DAILY #60 tab 09/23/20 Insulin Glargine Human [Lantus*] 40 units SQ BID #10 ml 09/23/20 Sitagliptin Phosphate [Januvia*] 100 mg PO DAILY #30 tab 09/23/20 Zinc Sulfate [Zinc Sulfate*] 220 mg PO DAILY #30 cap 09/23/20 levETIRAcetam [Keppra*] 1,500 mg PO BID #180 tab 09/23/20 Azithromycin Tab [Zithromax*] 500 mg PO DAILY #5 tab 04/07/21 guaiFENesin [Robitussin 100MG/5ML*] 10 ml PO QID PRN #30 ucup 04/07/21 Divalproex Sodium [Depakote ER] 500 mg PO BID #28 tab.er.24h 12/14/21 New Medications: Divalproex Sodium [Depakote ER] 500 mg PO BID #28 tab.er.24h Physician Discharge Instructions: Seizure precautions. Diet: Regular Followup: Satinder Arreola MD [ASSOCIATE-ACTIVE - CAN ADMIT] - 1-2 Weeks Time spent managing pt's care (in minutes): 36
[2021-12-14 16:23] VITALS: BP 106/68; TEMP 97.6
== END 2021-12-14 16:16 | disposition home or self-care (01) | DRG 101 ==
LOC: ER 19:20 → INTOOBSV 21:21 → ERHOLD 21:21 → 2ND 12-12 15:40 → OBSVTOIN 12-13 16:46
PROVIDERS: ADMIT Internal Medicine; ATTEND Internal Medicine
DX: G40.901 Epilepsy, unspecified, not intractable, with status epilepticus (principal); F79 Unspecified intellectual disabilities; Z90.49 Acquired absence of other specified parts of digestive tract; Z79.01 Long term (current) use of anticoagulants; Z79.4 Long term (current) use of insulin; Z79.899 Other long term (current) drug therapy; Z86.73 Personal history of transient ischemic attack (TIA), and cerebral infarction without residual deficits; Z20.822 Contact with and (suspected) exposure to COVID-19
CPT/HCPCS: 36415; 70553; 80048; 80076; 80307; 80320; 80329; 81003; 82947; 85025; 85610; 85730; 93005; 99285; A9577; J1650; J1953; U0003

== ENCOUNTER 2022-03-13 15:47 | Emergency (ER) | payer OTHER ==
--- OUTSIDE RECORDS SUMMARY | 2022-03-13 15:49 | XMS REPORT | Continuity of Care Document ---
:[address] [facility] t Address [address] [place] [address] Care Team Providers Name Role Phone Elizabeth [...] Clinicians Facility Department ID 2021-10-29 Outpatient Allen, STLMLC STLMLC [id number] Common 12:21:25 Jethro [id number] [facility] 2021-10-29 Outpatient Allen, STLMLC STLMLC [id number] Common 12:19:51 Jethro [id number] [facility] 2021-10-29 Outpatient Allen, STLMLC STLMLC [id number] Common 12:16:00 Jethro [id number] [facility] 2020-10-15 2020-10-15 Outpatient STLMLC STLMLC [id number] Common 00:00:00 00:00:00 [facility] 2020-09-25 2020-09-25 Outpatient STLMLC STLMLC [id number] Common 00:00:00 00:00:00 [facility] Results This patient has no known results.
[2022-03-13] MEDS ORDERED: LORazepam 2 MG/ML VIAL ONE (15:58)
[2022-03-13] MEDS ORDERED: NA CHLORIDE 0.9% 100 ML ONE (16:25)
[2022-03-13] MEDS ORDERED: LEVETIRACETAM 500 MG/5 ML VIAL IV ONE (16:25)
[2022-03-13 16:42] LABS: Absolute Lymphocytes (CBC) 2.1 K/uL (0.7-4.9); Hematocrit 43.1 % (39.6-49.0); Lymphocytes % 35.4 % (15.3-44.8); MPV 8.4 fL (7.6-11.3); RBC Red Blood Cell Count 5.07 M/uL (4.33-5.43)
[2022-03-13 16:46] LABS: Protime INR 1.03
[2022-03-13 17:40] LABS: AST/SGOT 25 U/L (15-37); Alkaline Phosphatase 56 U/L (45-117); BUN Blood Urea Nitrogen 14 mg/dL (7-18); Bicarbonate 24 mmol/L (21-32); Bilirubin Direct 0.1 mg/dL (0-0.2); Bilirubin Total 0.6 mg/dL (0.2-1.0); Glomerular Filtration Rate 110 ml/min (=/>90); Glucose Level 93 mg/dL (74-106); Potassium 3.4 mmol/L (3.5-5.1); Protein, Total 7.2 g/dL (6.4-8.2); Sodium Level 142 mmol/L (136-145)
[2022-03-13 17:52] LABS: ALT/SGPT 31 U/L (12-78)
--- NOTE | 2022-03-13 19:36 | ER ---
Nurse's Notes [facility] Name: Shan Faye Age: 36 yrs Sex: Male : 1985 Arrival Date: 03/13/2022 Time: 15:48 Bed 6 Private MD: Diagnosis: Other seizures Presentation: 03/13 15:48 Chief complaint: EMS states: they were called out to the patients place of employment ap3 for seizures. It is reported the patient was having focal seizures localized to his hands. EMS reports that there was no postictal phase upon their arrival. Patient states he missed his Keppra dose this morning. Coronavirus screen: At this time, the client does not indicate any symptoms associated with coronavirus-19. Ebola Screen: No symptoms or risks identified at this time. Initial Sepsis Screen: Does the patient meet any 2 criteria? No. Patient's initial sepsis screen is negative. Does the patient have a suspected source of infection? No. Patient's initial sepsis screen is negative. Risk Assessment: Do you want to hurt yourself or someone else? Patient reports no desire to harm self or others. Onset of symptoms was March 13, 2022. 15:48 Method Of Arrival: EMS: [facility] ap3 15:48 Acuity: PAULINE 3 ap3 Triage Assessment: 15:45 General: Appears in no apparent distress. Behavior is calm, cooperative. ap3 15:45 Pain: Denies pain. Neuro: No deficits noted. Level of Consciousness is awake, alert, ap3 obeys commands, Oriented to person, place, time. Cardiovascular: Patient's skin is warm and dry. Respiratory: Airway is patent Respiratory effort is even, unlabored, Respiratory pattern is regular, symmetrical. Historical: - Allergies: 15:54 Potato; ap3 - Home Meds: 15:54 Keppra Oral [Active]; ap3 - PMHx: 15:54 brain disorder; CVA; Seizure; ap3 - PSHx: 15:54 Cholecystectomy; ap3 - Immunization history:: Client reports receiving the 2nd dose of the Covid vaccine. - Social history:: Smoking status: Patient denies any tobacco usage or history of. Screenin:58 Abuse screen: Denies threats or abuse. Nutritional screening: No deficits noted. ap3 Tuberculosis screening: No symptoms or risk factors identified. Fall Risk Fall in past 12 months (25 points). Secondary diagnosis (15 points) seizures, IV access (20 points). Ambulatory Aid- None/Bed Rest/Nurse Assist (0 pts). Gait- Impaired (20 pts.). Mental Status- Oriented to own ability (0 pts). Total English Fall Scale indicates High Risk Score (45 or more points). Fall prevention measures have been instituted. Side Rails Up X 2 Placed Close to Nursing Station Frequent Obs/Assessments Occuring Family Present and informed to notify staff if the need to leave the bedside As available patient and family educated on Fall Prevention Program and Strategies. Assessment: 15:54 Reassessment: pt having seizure. provider at bedside. new orders received. ap3 17:17 Reassessment: patient resting eyes closed, respirations even and unlabored. patient ap3 appears to be in no signs of distress. mother is at the bedside. bed is locked, in lowest position. side rails are up X's 2 with call light within reach. 18:53 Reassessment: No changes from previously documented assessment. ap3 Vital Signs: 15:48 BP 146 / 94; Pulse 75; Pulse Ox 96% on R/A; Weight 86.18 kg; Height 5 ft. 5 in. (165.10 ap3 cm); 17:01 BP 134 / 100; Pulse 71; Pulse Ox 97% on R/A; ap3 17:17 BP 135 / 88; Pulse 72; Pulse Ox 98% on R/A; ap3 18:53 BP 125 / 84; Pulse 65; Resp 17; Pulse Ox 99% ; ap3 19:41 BP 135 / 95; Pulse 72; Resp 18; Temp 97.7(O); Pulse Ox 98% on R/A; kd3 15:48 Body Mass Index 31.62 (86.18 kg, 165.10 cm) ap3 ED Course: 15:48 Patient arrived in ED. ap3 15:49 Rainer Kerr PA is PHCP. [facility] 15:49 Isaiah Ferrer MD is Attending Physician. jm 15:54 Triage completed. ap3 15:58 Arm band placed on right wrist. ap3 15:58 Patient has correct armband on for positive identification. Bed in low position. Call ap3 light in reach. Side rails up X2. Adult w/ patient. Seizure precautions initiated. nurse monitoring on. Pulse ox on. NIBP on. Warm blanket given. 16:01 Alee Restrepo, RN is Primary Nurse. ap3 19:48 No provider procedures requiring assistance completed. IV discontinued, intact, kd3 bleeding controlled, No redness/swelling at site. Pressure dressing applied. Administered Medications: 15:54 Drug: Ativan (LORazepam) 2 mg Route: IVP; Site: left antecubital; ap3 17:12 Follow up: Response: No adverse reaction 19:49 Follow up: Response: No adverse reaction kd3 16:34 Drug: Keppra (levETIRAcetam) 1000 mg Route: IV; Rate: calculated rate; Site: right ap3 antecubital; 19:49 Follow up: IV Status: Completed infusion kd3 Medication: 15:58 VIS not applicable for this client. ap3 Outcome: 19:36 Discharge ordered by . [facility] 19:48 Discharged to home ambulatory, with family. kd3 19:48 Condition: stable 19:48 Discharge instructions given to patient, Instructed on discharge instructions, follow up and referral plans. Demonstrated understanding of instructions, follow-up care. 19:58 Patient left the ED. vc1 Signatures: Rainer Kerr PA PA Alee Goldman, RN PILLO ap3 Nury Gonzales RN RN kd3 Maria Us RN RN phillips Deysi Fair RN RN vc1
--- NOTE | 2022-03-13 19:37 | EDPHYS ---
Physician Documentation [facility] Name: Shan Faye Age: 36 yrs Sex: Male : 1985 Arrival Date: 03/13/2022 Time: 15:48 Bed 6 Private MD: ED Physician Isaiah Ferrer HPI: 03/13 15:59 This 36 yrs old Male presents to ER via EMS with complaints of seizure. jmm 15:59 The patient presents with a history of multiple seizures. Character of seizure(s): Loss jmm of consciousness: the patient experienced loss of consciousness, Motor activity: generalized, Incontinence: none, Apnea: the patient did not experience apnea, Circulation: the patient did not experience evidence of pulse disturbance. Seizure onset: just prior to arrival. This is a 36 year old male with a history of epilepsy that presents to the ED with complaints of seizure which occurred while at work. Patient takes keppra for seizures and has been taking as directed. . Historical: - Allergies: 15:54 Potato; ap3 - Home Meds: 15:54 Keppra Oral [Active]; ap3 - PMHx: 15:54 brain disorder; CVA; Seizure; ap3 - PSHx: 15:54 Cholecystectomy; ap3 - Immunization history:: Client reports receiving the 2nd dose of the Covid vaccine. - Social history:: Smoking status: Patient denies any tobacco usage or history of. ROS: 15:59 Constitutional: Negative for fever, chills, and weight loss, Cardiovascular: Negative jmm for chest pain, palpitations, and edema, Respiratory: Negative for shortness of breath, cough, wheezing, and pleuritic chest pain. 15:59 Neuro: Positive for seizure activity. 15:59 All other systems are negative. Exam: 15:59 Constitutional: This is a well developed, well nourished patient who is awake, alert, jmm and in no acute distress. Head/Face: atraumatic. Eyes: EOMI, no conjunctival erythema appreciated ENT: Moist Mucus Membranes Neck: Trachea midline, Supple Chest/axilla: Normal chest wall appearance and motion. Cardiovascular: Regular rate and rhythm. No edema appreciated Respiratory: Normal respirations, no respiratory distress appreciated Abdomen/GI: Non distended, soft Back: Normal ROM Skin: General appearance color normal MS/ Extremity: Moves all extremities, no obvious deformities appreciated, no edema noted to the lower extremities 15:59 Neuro: Motor: is normal. Vital Signs: 15:48 BP 146 / 94; Pulse 75; Pulse Ox 96% on R/A; Weight 86.18 kg; Height 5 ft. 5 in. (165.10 ap3 cm); 17:01 BP 134 / 100; Pulse 71; Pulse Ox 97% on R/A; ap3 17:17 BP 135 / 88; Pulse 72; Pulse Ox 98% on R/A; ap3 18:53 BP 125 / 84; Pulse 65; Resp 17; Pulse Ox 99% ; ap3 19:41 BP 135 / 95; Pulse 72; Resp 18; Temp 97.7(O); Pulse Ox 98% on R/A; kd3 15:48 Body Mass Index 31.62 (86.18 kg, 165.10 cm) ap3 MDM: 15:51 Patient medically screened. [facility] 19:35 Data reviewed: vital signs, nurses notes. Counseling: I had a detailed discussion with keith the patient and/or guardian regarding: the historical points, exam findings, and any diagnostic results supporting the discharge/admit diagnosis, lab results, the need for outpatient follow up, to return to the emergency department if symptoms worsen or persist or if there are any questions or concerns that arise at home. 03/13 15:52 Order name: Acetaminophen; Complete Time: 18:01 [facility] 03/13 15:52 Order name: Basic Metabolic Panel; Complete Time: 18:01 [facility] 03/13 15:52 Order name: CBC with Diff; Complete Time: 17:18 [facility] 03/13 15:52 Order name: ETOH Level; Complete Time: 17:51 [facility] 03/13 15:52 Order name: Hepatic Function; Complete Time: 18:01 [facility] 03/13 15:52 Order name: PT-INR; Complete Time: 16:54 [facility] 03/13 15:52 Order name: Ptt, Activated; Complete Time: 16:54 [facility] 03/13 15:52 Order name: Salicylate; Complete Time: 17:51 [facility] 03/13 15:52 Order name: Urine Drug Screen [facility] 03/13 15:52 Order name: EKG; Complete Time: 15:53 [facility] 03/13 15:52 Order name: EKG - Nurse/Tech; Complete Time: 17:11 [facility] 03/13 15:52 Order name: IV Saline Lock; Complete Time: 15:57 [facility] 03/13 15:52 Order name: Labs collected and sent; Complete Time: 15:57 [facility] 03/13 15:52 Order name: Urine Dipstick-Ancillary (obtain specimen); Complete Time: 20:00 [facility] Administered Medications: 15:54 Drug: Ativan (LORazepam) 2 mg Route: IVP; Site: left antecubital; ap3 17:12 Follow up: Response: No adverse reaction phillips 19:49 Follow up: Response: No adverse reaction kd3 16:34 Drug: Keppra (levETIRAcetam) 1000 mg Route: IV; Rate: calculated rate; Site: right ap3 antecubital; 19:49 Follow up: IV Status: Completed infusion kd3 Disposition Summary: 03/13/22 19:36 Discharge Ordered Location: Home jmm Condition: Stable jmm Diagnosis - Other seizures jmm Followup: jmm - With: Private Physician - When: 2 - 3 days - Reason: Recheck today's complaints, Continuance of care, Re-evaluation by your physician Discharge Instructions: - Discharge Summary Sheet jmm - Seizure, Adult jmm Forms: - Medication Reconciliation Form [facility] - Thank You Letter m - Antibiotic Education jmm - Prescription Opioid Use jmm - Work release form kd3 Signatures: Dispatcher [employer] EDRainer Branch PA PA jmm Prokisch, Amanda, RN RN ap3 Nury Gonzales RN kd3 Maria Us RN Corrections: (The following items were deleted from the chart) 15:58 15:52 Suicide Screening ([place]) ordered. [facility] ap3
[2022-03-13 20:01] LABS: Urine Blood Trace-intact (Negative); Urine Glucose Negative (Negative); Urine Protein Negative (Negative); Urine Specific Gravity >=1.030 (1.005-1.030); Urine pH 5.5 (5.0-7.0)
[2022-03-13 20:14] VITALS: BP 135/95; TEMP 97.7; O2SAT 98
[2022-03-13 20:14] LABS: Barbiturates NEGATIVE (NEGATIVE); Benzodiazepines NEGATIVE (NEGATIVE); Cocaine NEGATIVE (NEGATIVE); METHAMPHETAM NEGATIVE (NEGATIVE); Methadone NEGATIVE (NEGATIVE); Opiates NEGATIVE (NEGATIVE); Phencyclidine NEGATIVE (NEGATIVE); THC Cannibis NEGATIVE (NEGATIVE)
--- NOTE | 2022-03-14 09:12 | EKG ---
Test Date: 2022-03-13 Test Time: 17:06:47 Pool Cleaner: OCTVAIO MEASUREMENT RESULTS: Intervals: Rate: 69 NE: 156 QRSD: 88 QT: 398 QTc: 426 [place]: P: 41 NE: 156 QRS: 21 T: 27 INTERPRETIVE STATEMENTS: Normal sinus rhythm with sinus arrhythmia Normal ECG Compared to ECG 12/11/2021 20:25:03 No significant changes Electronically Signed On 03-14-22 09:10:41 CDT by oJseph Harris
== END 2022-03-13 19:58 | disposition home or self-care (01) ==
LOC: ER 15:47
DX: R56.9 Unspecified convulsions (principal); Z91.018 Allergy to other foods; I63.9 Cerebral infarction, unspecified
CPT/HCPCS: 96365; 93005; 85025; 80048; 36415; 80320; 80329 ×2; 85610; 80076; 85730; 81003; 80307; 96375; 99284; 96366; J1953

== ENCOUNTER 2022-03-27 18:07 | Emergency (ER) | payer OTHER ==
--- OUTSIDE RECORDS SUMMARY | 2022-03-27 18:10 | XMS REPORT | Continuity of Care Document ---
:1985 Author Organization [facility] t Address [address] [place] [address] Care Team Providers Name Role Phone Elizabeth [...] Facility Department ID 2021-10-29 Outpatient Allen, STLMLC STLC [id number] Common 12:21:25 Jethro [id number] [facility] 2021-10-29 Outpatient Allen, STLMLC STLC [id number] Common 12:19:51 Jethro [id number] [facility] 2021-10-29 Outpatient Allen, STLMLC STLMLC [id number] Common 12:16:00 Jethro [id number] [facility] 2020-10-15 2020-10-15 Outpatient STLMLC STLMLC [id number] Common 00:00:00 00:00:00 [facility] 2020-09-25 2020-09-25 Outpatient STLMLC STLMLC [id number] Common 00:00:00 00:00:00 [facility] Results This patient has no known results.
[2022-03-27] MEDS ORDERED: LORazepam 2 MG/ML VIAL ONE ×2 (18:17→18:29)
[2022-03-27] MEDS ORDERED: NA CHLORIDE 0.9% 50 ML ONE (18:39)
[2022-03-27] MEDS ORDERED: LEVETIRACETAM 500 MG/5 ML VIAL IV ONE (18:39)
[2022-03-27 19:05] LABS: Absolute Lymphocytes (CBC) 2.4 K/uL (0.7-4.9); Lymphocytes % 42.4 % (15.3-44.8); RBC Red Blood Cell Count 5.29 M/uL (4.33-5.43)
[2022-03-27 19:14] LABS: MPV 8.7 fL (7.6-11.3)
[2022-03-27 19:20] LABS: Potassium 3.7 mmol/L (3.5-5.1)
[2022-03-27 21:45] LABS: Blood Morphology Comment NOT SEEN (NOT SEEN); Platelet Estimate DECR; White Blood Cell Scan OK (OK)
[2022-03-27 23:59] LABS: Protime INR 1.06
--- NOTE | 2022-03-28 01:19 | ER ---
Nurse's Notes [facility] Name: Shan Faye Age: 36 yrs Sex: Male : 1985 Arrival Date: 03/27/2022 Time: 18:09 Bed 4 Private MD: Diagnosis: Other seizures;Thrombocytopenia, unspecified Presentation: 03/27 18:20 Chief complaint: EMS states: "pt was at work and had a seizure. pt has a history of jd3 seizures. he did not hit his head and no injury was reported.". Coronavirus screen: At this time, the client does not indicate any symptoms associated with coronavirus-19. Ebola Screen: No symptoms or risks identified at this time. Initial Sepsis Screen: Does the patient meet any 2 criteria? No. Patient's initial sepsis screen is negative. Does the patient have a suspected source of infection? No. Patient's initial sepsis screen is negative. Risk Assessment: Do you want to hurt yourself or someone else? Patient reports no desire to harm self or others. Onset of symptoms was March 27, 2022. 18:20 Method Of Arrival: EMS: [facility] jd3 18:20 Acuity: PAULINE 3 jd3 Historical: - Allergies: 18:28 Potato; jd3 - Home Meds: 18:28 Keppra Oral [Active]; jd3 - PMHx: 18:28 brain disorder; CVA; Seizure; jd3 - PSHx: 18:28 Cholecystectomy; jd3 - Immunization history:: Adult Immunizations unknown. - Social history:: Smoking status: unknown. - Family history:: not pertinent. - Hospitalizations: : No recent hospitalization is reported. Screenin:48 Abuse screen: Denies threats or abuse. Nutritional screening: No deficits noted. jd3 Tuberculosis screening: No symptoms or risk factors identified. Fall Risk Ambulatory Aid- None/Bed Rest/Nurse Assist (0 pts). Gait- Normal/Bed Rest/Wheelchair (0 pts) Mental Status- Oriented to own ability (0 pts). Total English Fall Scale indicates No Risk (0-24 pts). Assessment: 18:47 General: Appears comfortable, Behavior is calm, cooperative, appropriate for age. Pain: jd3 Denies pain. Unable to use pain scale. nodded head no when asked if there was any pain. Neuro: [place] Agitation-Sedation Scale (RASS): -1 Drowsy Level of Consciousness is awake, obeys commands, post ictal. Cardiovascular: Capillary refill < 3 seconds Patient's skin is warm and dry. Rhythm is regular. Respiratory: Airway is patent Respiratory effort is even, unlabored, Respiratory pattern is regular, symmetrical, Denies cough, shortness of breath. GI: No signs and/or symptoms were reported involving the gastrointestinal system. : No signs and/or symptoms were reported regarding the genitourinary system. EENT: No signs and/or symptoms were reported regarding the EENT system. Derm: Skin is intact, Skin is dry, Skin is normal, Skin temperature is warm. Musculoskeletal: Circulation, motion, and sensation intact. Range of motion: intact in all extremities. 20:00 Reassessment: No changes from previously documented assessment. Patient and/or family ll3 updated on plan of care and expected duration. Pain level reassessed. Patient is alert, oriented x 3, equal unlabored respirations, skin warm/dry/pink. 23:00 Reassessment: No changes from previously documented assessment. Patient and/or family ll3 updated on plan of care and expected duration. Pain level reassessed. Patient is alert, oriented x 3, equal unlabored respirations, skin warm/dry/pink. 03/28 01:23 Reassessment: No changes from previously documented assessment. Patient and/or family ll3 updated on plan of care and expected duration. Pain level reassessed. Patient is alert, oriented x 3, equal unlabored respirations, skin warm/dry/pink. Vital Signs: 03/27 18:28 BP 128 / 96; Pulse 80; Resp 18 S; Temp 97.8(TE); Pulse Ox 95% on 2 lpm NC; Weight 68.04 jd3 kg (R); Height 5 ft. 5 in. (165.10 cm) (R); Pain 0/10; 20:00 BP 115 / 78; Pulse 65; Resp 16; Pulse Ox 98% ; ll3 23:00 BP 136 / 96; Pulse 63; Resp 17; Pulse Ox 100% on R/A; ll3 03/28 00:41 BP 117 / 87; Pulse 54; Resp 16; Pulse Ox 99% on R/A; ll3 01:55 BP 112 / 79; Pulse 51; Resp 15; Pulse Ox 98% ; ll3 03/27 18:28 Body Mass Index 24.96 (68.04 kg, 165.10 cm) jd3 ED Course: 03/27 18:09 Patient arrived in ED. em1 18:13 Jose Eduardo Momin MD is Attending Physician. rn 18:20 Te Dugan RN is Primary Nurse. jd3 18:28 Triage completed. jd3 18:29 Arm band placed on. jd3 18:49 Patient has correct armband on for positive identification. Bed in low position. Call j light in reach. Side rails up X2. Adult w/ patient. Client placed on continuous cardiac and pulse oximetry monitoring. NIBP monitoring applied. engraver rubber on. Pulse ox on. NIBP on. 18:50 EKG done, by ED staff, reviewed by Jose Eduardo Momin MD. 7 19:02 Attending Physician role handed off by Jose Eduardo Momin MD [facility] 19:02 Dorian Yoon MD is Attending Physician. [facility] 03/28 00:41 No provider procedures requiring assistance completed. 3 01:18 Satinder Arreola MD is Referral Physician. 7 01:55 IV discontinued, intact, bleeding controlled, No redness/swelling at site. Pressure 3 dressing applied. Administered Medications: 03/27 08:15 Drug: Ativan (LORazepam) 1 mg Route: IVP; Site: left forearm; jd3 19:00 Follow up: Response: No adverse reaction jd3 18:20 Drug: Ativan (LORazepam) 1 mg Route: IVP; Site: left forearm; jd3 19:00 Follow up: Response: No adverse reaction jd3 18:43 Drug: Keppra (levETIRAcetam) 1000 mg Route: IV; Rate: calculated rate; Site: left jd3 forearm; 19:00 Follow up: Response: No adverse reaction; IV Status: Completed infusion jd3 Medication: 18:48 VIS not applicable for this client. jd3 Outcome: 03/28 01:[address] [facility] 01:55 Discharged to home ambulatory, with family. 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 Demonstrated understanding of instructions, follow-up care. 01:55 Patient left the ED. 3 Signatures: Jose Eduardo Momin MD MD rn Elías, Steve em1 Te Dugan RN RN jd3 Dorian Yoon MD MD 7 Yonathan Azar RN RN 3 [facility]
--- NOTE | 2022-03-28 01:19 | EDPHYS ---
Physician Documentation [facility] Name: Shan Faye Age: 36 yrs Sex: Male : 1985 Arrival Date: 03/27/2022 Time: 18:09 Bed 4 Private MD: ED Physician Dorian Yoon HPI: 03/27 18:25 This 36 yrs old Male presents to ER via Unassigned with complaints of seizure. rn 18:25 The patient presents with a history of multiple seizures, a total of 2. Seizure onset: rn today. Associated injury: The patient did not suffer any apparent associated injury. Current symptoms: decreased level of consciousness. The patient has experienced similar episodes in the past. The patient has not recently seen a physician. Mother reports hx of seizures but has not had one in "awhile". Pt takes keppra and compliant per mother. Went to work today, at [employer], mom thinks got over heated, had 1 seizure there, brief, EMS noted post-ictal state, then had another one immediately upon arrival to ER. . Historical: - Allergies: 18:28 Potato; jd3 - Home Meds: 18:28 Keppra Oral [Active]; jd3 - PMHx: 18:28 brain disorder; CVA; Seizure; jd3 - PSHx: 18:28 Cholecystectomy; jd3 - Immunization history:: Adult Immunizations unknown. - Social history:: Smoking status: unknown. - Family history:: not pertinent. - Hospitalizations: : No recent hospitalization is reported. ROS: 18:25 Unable to obtain ROS due to post-ictal. rn Exam: 18:25 Constitutional: This is a well developed, well nourished patient who is awake, alert, rn and in no acute distress. Head/Face: Normocephalic, atraumatic. Cardiovascular: Regular rate and rhythm. No pulse deficits. Respiratory: No increased work of breathing, no retractions or nasal flaring. Abdomen/GI: Soft, non-tender Skin: Warm, dry, no cyanosis MS/ Extremity: Pulses equal, no cyanosis. Neuro: Awake, post-ictal, non-verbal 18:52 ECG was reviewed by the Attending Physician. rn Vital Signs: 18:28 BP 128 / 96; Pulse 80; Resp 18 S; Temp 97.8(TE); Pulse Ox 95% on 2 lpm NC; Weight 68.04 jd3 kg (R); Height 5 ft. 5 in. (165.10 cm) (R); Pain 0/10; 20:00 BP 115 / 78; Pulse 65; Resp 16; Pulse Ox 98% ; ll3 23:00 BP 136 / 96; Pulse 63; Resp 17; Pulse Ox 100% on R/A; ll3 03/28 00:41 BP 117 / 87; Pulse 54; Resp 16; Pulse Ox 99% on R/A; ll3 01:55 BP 112 / 79; Pulse 51; Resp 15; Pulse Ox 98% ; ll3 03/27 18:28 Body Mass Index 24.96 (68.04 kg, 165.10 cm) jd3 MDM: 03/27 18:13 Patient medically screened. rn 18:46 ED course: Pt with 2 seizures here, given ativan and keppra, will cont to observe. . rn 18:53 Transition of care: After a detail discussion of the patient's case, care is rn transferred to Dorian Yoon MD. 03/28 01:16 Differential diagnosis: seizure, electrolyte abnormality. Data reviewed: vital signs, 7 nurses notes, old medical records, lab test result(s). Data interpreted: Pulse oximetry: on room air is 99 %. Interpretation: normal. Counseling: I had a detailed discussion with the patient and/or guardian regarding: the historical points, exam findings, and any diagnostic results supporting the discharge/admit diagnosis, lab results, the need for outpatient follow up. Response to treatment: the patient's symptoms have resolved after treatment, the patient's blood pressure is in an acceptable range, mental status has returned to baseline, the patient no longer shows bradycardia, the patient is not short of breath, the patient is not tachycardic, the patient's pain is gone, the patient's temperature has normalized, the patient's condition has returned to base line, patient is well hydrated. 03/27 18:15 Order name: CBC with Diff; Complete Time: 22:01 rn 03/27 18:15 Order name: Basic Metabolic Panel; Complete Time: 19:53 rn 03/27 18:24 Order name: SARS-COV-2 RT PCR (Document "Date of Onset" if Symptomatic); Complete Time: rn 01:03/27 20:32 Order name: Protime (+inr); Complete Time: 00:51 [facility] 03/27 20:32 Order name: Ptt, Activated; Complete Time: 00:51 [facility] 03/27 21:45 Order name: CBC Smear Scan; Complete Time: 22:01 EDND 03/27 18:15 Order name: IV Start; Complete Time: 18:30 rn 03/27 18:15 Order name: EKG; Complete Time: 18:16 rn 03/27 18:15 Order name: EKG - Nurse/Tech; Complete Time: 18:49 rn 03/27 18:15 Order name: Cardiac monitoring; Complete Time: 18:30 rn EC/24 18:52 Rate is 74 beats/min. Rhythm is regular. QRS [place] is Normal. DC interval is normal. QRS rn interval is normal. QT interval is normal. No Q waves. T waves are Normal. No ST changes noted. Clinical impression: Normal ECG. Interpreted by me. Reviewed by me. Administered Medications: 08:15 Drug: Ativan (LORazepam) 1 mg Route: IVP; Site: left forearm; [facility] 19:00 Follow up: Response: No adverse reaction jd3 18:20 Drug: Ativan (LORazepam) 1 mg Route: IVP; Site: left forearm; j 19:00 Follow up: Response: No adverse reaction jd3 18:43 Drug: Keppra (levETIRAcetam) 1000 mg Route: IV; Rate: calculated rate; Site: left [facility] forearm; 19:00 Follow up: Response: No adverse reaction; IV Status: Completed infusion [facility] Disposition Summary: 03/28/22 01:19 Discharge Ordered Location: Home [facility] Problem: an acute exacerbation [facility] Symptoms: have improved [facility] Condition: Stable [facility] Diagnosis - Other seizures 7 - Thrombocytopenia, unspecified 7 Followup: [facility] - With: Private Physician - When: 1 - 2 days - Reason: Worsening of condition, Recheck today's complaints, Continuance of care, Re-evaluation by your physician Followup: [facility] - With: Satinder Arreola MD - When: 1 - 2 days - Reason: Worsening of condition, Recheck today's complaints Discharge Instructions: - Discharge Summary Sheet [facility] - Seizure, Adult, [id number] [facility] - Thrombocytopenia, [id number] [facility] Forms: - Medication Reconciliation Form [facility] - Thank You Letter 7 - Antibiotic Education 7 - Prescription Opioid Use 7 - Work release form Signatures: Dispatcher [employer] Jose Eduardo Davis MD MD rn Davies, Jonathon, RN RN jd3 Dorian Yoon MD MD [facility]
[2022-03-28 02:08] VITALS: TEMP 97.8
[2022-03-28 02:18] VITALS: BP 112/79; O2SAT 98
--- NOTE | 2022-03-28 17:28 | EKG ---
Test Date: 2022-03-27 Test Time: 18:45:11 Transcribing Machine Mechanic: MB MEASUREMENT RESULTS: Intervals: Rate: 74 OR: 152 QRSD: 92 QT: 396 QTc: 439 [place]: P: 65 OR: 152 QRS: 58 T: 52 INTERPRETIVE STATEMENTS: Normal sinus rhythm Normal ECG Compared to ECG 03/13/2022 17:06:47 Sinus arrhythmia no longer present Electronically Signed On 03-28-22 17:27:11 CDT by Medhat Fernandes
== END 2022-03-28 01:55 | disposition home or self-care (01) ==
LOC: ER 18:07
DX: G40.89 Other seizures (principal); D69.6 Thrombocytopenia, unspecified; Z20.822 Contact with and (suspected) exposure to COVID-19; Z91.018 Allergy to other foods
CPT/HCPCS: 96365; 93005; 85025; 80048; 36415; 85610; 85730; 96375; 99284; U0003; J1953

== ENCOUNTER 2022-06-05 18:14 | Emergency (ER) | payer OTHER ==
--- OUTSIDE RECORDS SUMMARY | 2022-06-05 18:17 | XMS REPORT | Continuity of Care Document ---
:1985 Author Organization [facility] t Address [address] [place] [address] Care Team Providers Name Role Phone Alejandro Jethro Johnson Attending Clinician Unavailable Problems This patient has no known problems. Allergies, Adverse Reactions, Alerts This patient has no known allergies or adverse reactions. Medications This patient has no known medications. Procedures This patient has no known procedures. Encounters Start End Encounter Admission Attending Care Care Encounter Source Date/Time Date/Time Type Type Clinicians Facility Department ID 2021-10-29 Outpatient Allen, [facility] [id number] Common 12:21:25 Jethro [id number] [facility] 2021-10-29 Outpatient Allen, [facility] [id number] Common 12:19:51 Jethro [id number] [facility] 2021-10-29 Outpatient Allen, [facility] [id number] Common 12:16:00 Jethro [id number] [facility] 2020-10-15 2020-10-15 Outpatient [facility]C [facility] [id number] Common 00:00:00 00:00:00 [facility] 2020-09-25 2020-09-25 Outpatient [facility] [id number] Common 00:00:00 00:00:00 [facility] Results This patient has no known results.
[2022-06-05] MEDS ORDERED: levETIRAcetam 1,000 MG in NA CHLORIDE 0.9% 100 ML IV SCH (18:30)
[2022-06-05] MEDS ORDERED: LORazepam 2 MG/ML VIAL ONE (18:36)
[2022-06-05 18:45] LABS: Absolute Lymphocytes (CBC) 2.5 K/uL (0.7-4.9); Lymphocytes % 38.7 % (15.3-44.8); MCV 83.9 fL (80-100); MPV 7.9 fL (7.6-11.3); RBC Red Blood Cell Count 5.13 M/uL (4.33-5.43)
[2022-06-05 19:00] LABS: Potassium 3.5 mmol/L (3.5-5.1)
--- NOTE | 2022-06-05 19:38 | ER ---
Nurse's Notes [facility] Name: Shan Faye Age: 36 yrs Sex: Male : 1985 Arrival Date: 06/05/2022 Time: 18:16 Bed 3 Private MD: Diagnosis: Other seizures;Epileptic seizures related to external causes, not intractable Presentation: 06/05 18:18 Chief complaint: EMS states: toned out to pt work for seizures - coworker caught ld1 patient and layed him on floor. Denies injury. Upon arrival to ER pt had two consecutive seizures. Coronavirus screen: At this time, the client does not indicate any symptoms associated with coronavirus-19. Ebola Screen: No symptoms or risks identified at this time. Initial Sepsis Screen: Does the patient meet any 2 criteria? No. Patient's initial sepsis screen is negative. Does the patient have a suspected source of infection? No. Patient's initial sepsis screen is negative. Risk Assessment: Do you want to hurt yourself or someone else? Patient reports no desire to harm self or others. Onset of symptoms was June 05, 2022. 18:18 Method Of Arrival: EMS: [facility] ld1 18:18 Acuity: PAULINE 3 ld1 Triage Assessment: 18:20 General: Appears in no apparent distress. uncomfortable, Behavior is calm. Pain: Unable ld1 to use pain scale. Patient is disoriented. EENT: No signs and/or symptoms were reported regarding the EENT system. Neuro: Level of Consciousness is post ictal, Oriented to person, place, time, situation, Seizure activity noted at this time. Cardiovascular: Capillary refill < 3 seconds Patient's skin is warm and dry. Rhythm is sinus rhythm. Respiratory: Airway is patent Respiratory effort is even, unlabored. GI: Abdomen is round non-distended. : No signs and/or symptoms were reported regarding the genitourinary system. Derm: No signs and/or symptoms reported regarding the dermatologic system. Musculoskeletal: No signs and/or symptoms reported regarding the musculoskeletal system. Historical: - Allergies: 18:20 Potato; ld1 - PMHx: 18:20 brain disorder; CVA; Seizure; ld1 - PSHx: 18:20 Cholecystectomy; ld1 - Immunization history:: Adult Immunizations up to date, Client reports having NOT received the Covid vaccine. - Social history:: Smoking status: Patient denies any tobacco usage or history of. Patient/guardian denies using alcohol. - Family history:: not pertinent. - Hospitalizations: : No recent hospitalization is reported. Screenin:45 Abuse screen: Denies threats or abuse. Denies injuries from another. Nutritional ld1 screening: No deficits noted. Tuberculosis screening: No symptoms or risk factors identified. Fall Risk None identified. Assessment: 18:45 Reassessment: See triage assessment. ld1 18:52 Reassessment: Patient appears in no apparent distress at this time. No changes from ld1 previously documented assessment. Patient and/or family updated on plan of care and expected duration. Pain level reassessed. 19:20 General: Appears in no apparent distress. Behavior is drowsy. Cardiovascular: Patient's ha1 skin is warm and dry. Respiratory: Airway is patent Trachea midline Respiratory effort is even, unlabored, Respiratory pattern is regular, symmetrical. Vital Signs: 18:18 BP 159 / 101; Pulse 70; Resp 18; Temp 97.6(O); Pulse Ox 100% on R/A; Weight 86.18 kg; ld1 Height 5 ft. 5 in. (165.10 cm); Pain 0/10; 18:45 BP 164 / 100; Pulse 77; Resp 18; Pulse Ox 100% on 2 lpm NC; ld1 19:23 BP 147 / 94; Pulse 80; Resp 14 S; Pulse Ox 100% on 2 lpm NC; ha1 20:48 BP 139 / 98; Pulse 58; Resp 15 S; Pulse Ox 100% on 2 lpm NC; ha1 18:18 Body Mass Index 31.62 (86.18 kg, 165.10 cm) ld1 Benjamín Coma Score: 18:20 Eye Response: none(1). Verbal Response: none(1). Motor Response: none(1). Total: 3. ld1 ED Course: 18:16 Patient arrived in ED. eb 18:17 Neida Chaparro, PILLO is Primary Nurse. ld1 18:18 Jose Eduardo Momin MD is Attending Physician. rn 18:20 Triage completed. ld1 18:20 Arm band placed on right wrist. ld1 18:45 Patient has correct armband on for positive identification. Placed in gown. Bed in low ld1 position. Call light in reach. Side rails up X2. 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 Pulse ox on. NIBP on. Door closed. Noise minimized. Warm blanket given. 18:45 Inserted saline lock: 20 gauge in right antecubital area, using aseptic technique. ld1 Blood collected. 18:45 No provider procedures requiring assistance completed. ld1 19:25 Attending Physician role handed off by Jose Eduardo Momin MD [facility] 19:25 Isaiah Ferrer MD is Attending Physician. [facility] 19:34 Satinder Arreola MD is Referral Physician. [facility] 21:07 IV discontinued, intact, bleeding controlled, No redness/swelling at site. Pressure ha1 dressing applied. 21:08 Bed in low position. Call light in reach. Side rails up X2. Seizure precautions ha1 initiated. Administered Medications: 18:29 Drug: Ativan (LORazepam) 2 mg Route: IVP; Site: right wrist; ld1 19:13 Follow up: Response: No adverse reaction ld1 18:45 Drug: Keppra (levETIRAcetam) 1000 mg Route: IV; Rate: calculated rate; Site: right ld1 antecubital; 19:05 Follow up: Response: No adverse reaction; IV Status: Completed infusion; IV Intake: ld1 100ml 20:01 Drug: Keppra (levETIRAcetam) 500 mg Route: IV; Rate: per protocol; Site: right ha1 antecubital; 21:10 Follow up: Response: No adverse reaction; IV Status: Completed infusion; IV Intake: ha1 100ml Medication: 18:45 VIS not applicable for this client. ld1 Intake: 19:05 IV: 100ml; Total: 100ml. ld1 21:10 IV: 100ml; Total: 200ml. ha1 Outcome: 19:37 Discharge ordered by . [facility] 21:06 Discharged to home via wheelchair, with family. ha1 21:06 Condition: stable 21:06 Discharge instructions given to patient, family, Instructed on discharge instructions, follow up and referral plans. medication usage, Demonstrated understanding of instructions, follow-up care, medications, Prescriptions given X 3. 21:10 Patient left the ED. ha1 Signatures: Isaiah Ferrer MD MD [facility] Jose Eduardo Momin MD MD rn Botello, Elizabeth eb Dibbern, Lauren, RN RN 1 Walker, Jeannie, RN RN ha1
--- NOTE | 2022-06-05 19:38 | EDPHYS ---
Physician Documentation [facility] Name: Shan Faye Age: 36 yrs Sex: Male : 1985 Arrival Date: 06/05/2022 Time: 18:16 Bed 3 Private MD: ED Physician Isaiah Ferrer HPI: 06/05 18:33 This 36 yrs old Male presents to ER via EMS with complaints of Seizure. rn 18:33 The patient presents with a history of multiple seizures, a total of 3. Character of rn seizure(s): Loss of consciousness: the patient did not lose consciousness, Motor activity: generalized, Incontinence: none, Circulation: the patient did not experience evidence of pulse disturbance. Seizure onset: just prior to arrival. 18:35 Associated injury: The patient did not suffer any apparent associated injury. Current rn symptoms: decreased level of consciousness. The patient has experienced similar episodes in the past. The patient has not recently seen a physician. EMS reports has now had 3 seizures, picked up for seizure, given 2mg ativan prior to arrival. Pt with hx of seizures, takes ativan, well known to us. . Historical: - Allergies: 18:20 Potato; ld1 - PMHx: 18:20 brain disorder; CVA; Seizure; ld1 - PSHx: 18:20 Cholecystectomy; ld1 - Immunization history:: Adult Immunizations up to date, Client reports having NOT received the Covid vaccine. - Social history:: Smoking status: Patient denies any tobacco usage or history of. Patient/guardian denies using alcohol. - Family history:: not pertinent. - Hospitalizations: : No recent hospitalization is reported. ROS: 18:35 Unable to obtain ROS due to altered mental status. rn Exam: 18:35 Constitutional: This is a well developed, well nourished patient who is post-ictal rn Head/Face: Normocephalic, atraumatic. Eyes: Periorbital areas with no swelling, redness, or edema. Cardiovascular: Regular rate and rhythm. No pulse deficits. Respiratory: No increased work of breathing, no retractions or nasal flaring. Abdomen/GI: Soft, non-tender Skin: Warm, dry MS/ Extremity: Pulses equal, no cyanosis. Neuro: Post-ictal Vital Signs: 18:18 BP 159 / 101; Pulse 70; Resp 18; Temp 97.6(O); Pulse Ox 100% on R/A; Weight 86.18 kg; ld1 Height 5 ft. 5 in. (165.10 cm); Pain 0/10; 18:45 BP 164 / 100; Pulse 77; Resp 18; Pulse Ox 100% on 2 lpm NC; ld1 19:23 BP 147 / 94; Pulse 80; Resp 14 S; Pulse Ox 100% on 2 lpm NC; ha1 20:48 BP 139 / 98; Pulse 58; Resp 15 S; Pulse Ox 100% on 2 lpm NC; ha1 18:18 Body Mass Index 31.62 (86.18 kg, 165.10 cm) ld1 Benjamín Coma Score: 18:20 Eye Response: none(1). Verbal Response: none(1). Motor Response: none(1). Total: 3. ld1 MDM: 18:18 Patient medically screened. rn 19:03 Transition of care: After a detail discussion of the patient's case, care is rn transferred to Isaiah Ferrer MD. 19:26 Patient medically screened. [facility] 06/05 18:21 Order name: CBC with Diff; Complete Time: 19:02 rn 06/05 18:21 Order name: Basic Metabolic Panel; Complete Time: 19:02 rn 06/05 18:43 Order name: Glucose, Ancillary Testing; Complete Time: 19:02 EDID 06/05 18:20 Order name: IV Start; Complete Time: 18:24 rn 06/05 18:22 Order name: Cardiac monitoring; Complete Time: 18:24 rn 06/05 18:22 Order name: O2 Sat Monitoring; Complete Time: 18:24 rn 06/05 18:22 Order name: Glucose Level; Complete Time: 18:31 rn 06/05 19:31 Order name: Seizure Precautions; Complete Time: 19:37 [facility] Administered Medications: 18:29 Drug: Ativan (LORazepam) 2 mg Route: IVP; Site: right wrist; ld1 19:13 Follow up: Response: No adverse reaction ld1 18:45 Drug: Keppra (levETIRAcetam) 1000 mg Route: IV; Rate: calculated rate; Site: right ld1 antecubital; 19:05 Follow up: Response: No adverse reaction; IV Status: Completed infusion; IV Intake: ld1 100ml 20:01 Drug: Keppra (levETIRAcetam) 500 mg Route: IV; Rate: per protocol; Site: right ha1 antecubital; 21:10 Follow up: Response: No adverse reaction; IV Status: Completed infusion; IV Intake: ha1 100ml Disposition Summary: 06/05/22 19:37 Discharge Ordered Location: Home annie Problem: new annie Symptoms: have improved annie Condition: Stable annie Diagnosis - Other seizures annie - Epileptic seizures related to external causes, not intractable annie Followup: annie - With: Private Physician - When: 2 - 3 days - Reason: Recheck today's complaints, Continuance of care, Re-evaluation by your physician Followup: annie - With: Satinder Arreola MD - When: 2 - 3 days - Reason: Recheck today's complaints, Continuance of care, Re-evaluation by your physician Discharge Instructions: - Discharge Summary Sheet annie - Epilepsy annie - Seizure, Adult annie - Seizure, Adult, [id number] annie - Epilepsy, [id number]-[id number] annie Forms: - Medication Reconciliation Form [facility] - Thank You Letter [facility] - Antibiotic Education [facility] - Prescription Opioid Use [facility] Prescriptions: - Diastat - insert 10 milligram by RECTAL route as directed; 3 applicatorful; Refills: 0, [facility] Product Selection Permitted - Fycompa 8 mg Oral tablet - take 1 tablet by ORAL route every 12 hours at bedtime; 60 tablet; Refills: 0, [facility] Product Selection Permitted - Keppra 750 mg Oral Tablet - take 2 tablet by ORAL route every 12 hours; 60 tablet; Refills: 0, Product [facility] Selection Permitted Signatures: Dispatcher [employer] Isaiah Erwin MD MD cha Nieto, Roman, MD MD rn Dibbern, Lauren, RN RN ld1 Jeannie Walker RN RN ha1
[2022-06-05] MEDS ORDERED: LEVETIRACETAM 500 MG/5 ML VIAL IV ONE (19:59)
[2022-06-05] MEDS ORDERED: NA CHLORIDE 0.9% 100 ML ONE (20:03)
[2022-06-05 22:40] VITALS: TEMP 97.6; O2SAT 100
[2022-06-05 22:48] VITALS: BP 139/98
== END 2022-06-05 21:10 | disposition home or self-care (01) ==
LOC: ER 18:14
DX: G40.509 Epileptic seizures related to external causes, not intractable, without status epilepticus (principal); Z91.018 Allergy to other foods; Z86.73 Personal history of transient ischemic attack (TIA), and cerebral infarction without residual deficits
CPT/HCPCS: 96365; 85025; 80048; 36415; 82947; 96375; 99284; J1953 ×2

== ENCOUNTER 2022-06-14 11:22 | Emergency (ER) | payer OTHER ==
--- OUTSIDE RECORDS SUMMARY | 2022-06-14 11:29 | XMS REPORT | Continuity of Care Document ---
:1985 Author Organization [facility] t Address [address] [place] [address] [address] [place] [address] Care Team Providers Name Role Phone Alejandro [...] Clinicians Facility Department ID 2021-10-29 Outpatient Allen, [facility] [id number] Common 12:21:25 Jethro [id number] [facility] 2021-10-29 Outpatient AllenST [facility]issaLC [facility] [id number] Common 12:19:51 Jethro [id number] [facility] 2021-10-29 Outpatient Allen, [facility] [id number] Common 12:16:00 Jethro [id number] [facility] 2020-10-15 2020-10-15 [facility] [id number] Common 00:00:00 00:00:00 [facility] 2020-09-25 2020-09-25 [facility] [id number] Common 00:00:00 00:00:00 [facility] Results This patient has no known results.
[2022-06-14] MEDS ORDERED: ONDANSETRON 4 MG/2 ML VIAL ONE (12:37)
[2022-06-14] MEDS ORDERED: NA CHLORIDE 0.9% 500 ML ONE (12:37)
[2022-06-14] MEDS ORDERED: FENTANYL CITR 100 MCG/2 ML ONE (12:37)
--- NOTE | 2022-06-14 12:44 | RAD REPORT ---
EXAM DESCRIPTION: RAD - Femur Left - 06/14/2022 12:32 pm CLINICAL HISTORY: PAIN COMPARISON: No comparisons FINDINGS: An area of lucency is seen along the superior left femoral head which could indicate avasc ular necrosis. No fracture seen. MRI of the left hip recommended for confirmation.
[2022-06-14 12:54] LABS: Absolute Lymphocytes (CBC) 2.2 K/uL (0.7-4.9); Hematocrit 42.5 % (39.6-49.0); Lymphocytes % 36.6 % (15.3-44.8); MCV 83.3 fL (80-100); MPV 8.3 fL (7.6-11.3)
[2022-06-14] MEDS ORDERED: HYDROCODONE/APAP 10/325 TAB ONE (13:05)
[2022-06-14] MEDS ORDERED: ONDANSETRON 4 MG (ODT) TAB ONE (13:05)
[2022-06-14 13:10] LABS: Bilirubin Total 0.8 mg/dL (0.2-1.0); Potassium 3.3 mmol/L (3.5-5.1); Protein, Total 7.3 g/dL (6.4-8.2)
--- NOTE | 2022-06-14 13:36 | RAD REPORT ---
EXAM DESCRIPTION: US - Extremity Venous Uni Ltd - 06/14/2022 1:15 pm CLINICAL HISTORY: PAIN Leg swelling and edema. COMPARISON: EXT VENOUS UNI LTD dated 11/08/2015 FINDINGS: Left lower extremity venous system was interrogated with Doppler technique. Normal flow, c ompressibility and augmentation was noted. There is no DVT present. IMPRESSION: No evidence of left lower extremity deep venous thrombosis.
--- NOTE | 2022-06-14 13:54 | ER ---
Nurse's Notes [facility] Name: Shan Faye Age: 36 yrs Sex: Male : 1985 Arrival Date: 06/14/2022 Time: 11:25 Bed 16 Private MD: Diagnosis: Pain in left leg;Hypokalemia Presentation: 06/14 11:54 Chief complaint: Patient states: Left thigh pain x 3-4 days, mom reports difficulty jl7 walking. Coronavirus screen: At this time, the client does not indicate any symptoms associated with coronavirus-19. Ebola Screen: No symptoms or risks identified at this time. Initial Sepsis Screen: Does the patient meet any 2 criteria? No. Patient's initial sepsis screen is negative. Does the patient have a suspected source of infection? No. Patient's initial sepsis screen is negative. Risk Assessment: Do you want to hurt yourself or someone else? Patient reports no desire to harm self or others. Onset of symptoms was June 12, 2022. 11:54 Method Of Arrival: Wheelchair jl 11:54 Acuity: PAULINE 3 jl7 Triage Assessment: 11:55 General: Appears in no apparent distress. uncomfortable, Behavior is calm, cooperative, jl7 appropriate for age. Pain: Complains of pain in left quadriceps Pain currently is 8 out of 10 on a pain scale. Historical: - Allergies: 11:55 Potato; jl7 - PMHx: 11:55 brain disorder; CVA; Seizure; jl7 - PSHx: 11:55 Cholecystectomy; jl7 - Immunization history:: Client reports receiving the 2nd dose of the Covid vaccine. - Social history:: Smoking status: Patient denies any tobacco usage or history of. - Family history:: not pertinent. Screenin:07 Abuse screen: Denies threats or abuse. Denies injuries from another. Nutritional ph screening: On. Tuberculosis screening: Fall Risk None identified. Assessment: 12:05 General: Appears in no apparent distress. Behavior is calm, cooperative, appropriate ss for age. Pain: Complains of pain in left quadriceps. Neuro: Level of Consciousness is awake, alert, obeys commands, Oriented to person, place, time, situation. Cardiovascular: Capillary refill < 3 seconds in bilateral fingers Patient's skin is warm and dry. Respiratory: Airway is patent Respiratory effort is even, unlabored, Respiratory pattern is regular, symmetrical. Derm: Skin is healthy with good turgor, Skin is pink, warm \T\ dry. Musculoskeletal: Circulation, motion, and sensation intact. Range of motion: intact in all extremities, Swelling absent. Vital Signs: 11:54 BP 137 / 84; Pulse 67; Resp 17; Temp 98.; Pulse Ox 98% ; Weight 83.46 kg; Height 5 ft. jl7 5 in. (165.10 cm); Pain 8/10; 13:10 BP 146 / 94; Pulse 62; Resp 14; Pulse Ox 97% ; ko1 14:22 BP 125 / 84; Pulse 58; Resp 16; Temp 98; Pulse Ox 97% ; ko1 11:54 Body Mass Index 30.62 (83.46 kg, 165.10 cm) jl7 ED Course: 11:25 Patient arrived in ED. rg4 11:55 Triage completed. jl7 11:55 Arm band placed on right wrist. jl7 11:59 Isaiah Ferrer MD is Attending Physician. annie 12:07 Patient has correct armband on for positive identification. Placed in gown. Bed in low ph position. Call light in reach. Side rails up X 1. Pulse ox on. NIBP on. Door closed. Noise minimized. Warm blanket given. 12:26 Lea Pandey, RN is Primary Nurse. ph 12:34 Femur Left XRAY In Process Unspecified. EDMS 13:06 US Extremity Venous Unilateral Ltd In Process Unspecified. EDMS 14:37 No provider procedures requiring assistance completed. Patient did not have IV access ko1 during this emergency room visit. Administered Medications: 12:48 Not Given (Other Intervention Used): NS 0.9% 500 ml IV at bolus once ph 12:48 Not Given (Other Intervention Used): fentaNYL (PF) 25 mcg IVP once ph 12:48 Not Given (Other Intervention Used): Zofran (Ondansetron) 4 mg IVP once; over 2 minutes ph 13:03 Drug: [place] (HYDROcodone-acetaminophen) 10 mg-325 mg 1 tabs Route: PO; ph 15:00 Follow up: Response: No adverse reaction ph 13:03 Drug: Zofran (Ondansetron) 4 mg Route: PO; ph 15:00 Follow up: Response: No adverse reaction ph 14:29 Drug: Potassium Effervescent Tablet 25 mEq Route: PO; ko1 15:00 Follow up: Response: No adverse reaction ph Medication: 12:07 VIS not applicable for this client. ph Outcome: 13:53 Discharge ordered by . annie 14:37 Discharged to home via wheelchair. ko1 14:37 Condition: stable 14:37 Discharge instructions given to patient, family, Instructed on discharge instructions, follow up and referral plans. medication usage, Demonstrated understanding of instructions, follow-up care, medications, Prescriptions given X 2. 14:40 Patient left the ED. ko1 Signatures: Dispatcher [employer] EDMS Isaiah Ferrer MD MD cha Smirch, Shelby RN RN ss Lea Pandey RN RN Emily Booth4 Mary Jane Potter RN RN jl7 Helen Balderas RN RN ko1
--- NOTE | 2022-06-14 13:54 | EDPHYS ---
Physician Documentation [facility] Name: Shan Faye Age: 36 yrs Sex: Male : 1985 Arrival Date: 06/14/2022 Time: 11:25 Bed 16 Private MD: CLAUDE Physician Isaiah Ferrer HPI: 06/14 13:40 This 36 yrs old Male presents to ER via Wheelchair with complaints of Leg Pain.annie 13:40 The patient presents with decreased range of motion, pain. The complaints affect the annie left quadriceps. Context: The problem was sustained inside, resulted from an unknown cause, the patient can fully bear weight. Onset: The symptoms/episode began/occurred 3 day(s) ago. Onset: The symptoms/episode began/occurred this morning. Modifying factors: The symptoms are alleviated by elevating leg, remaining still, the symptoms are aggravated by movement, weight bearing. Associated signs and symptoms: The patient has no apparent associated signs or symptoms. Treatment prior to arrival includes: no previous treatment. Severity of symptoms: At their worst the symptoms were mild, in the emergency department the symptoms have resolved. The patient has not experienced similar symptoms in the past. Historical: - Allergies: 11:55 Potato; jl7 - PMHx: 11:55 brain disorder; CVA; Seizure; jl7 - PSHx: 11:55 Cholecystectomy; jl7 - Immunization history:: Client reports receiving the 2nd dose of the Covid vaccine. - Social history:: Smoking status: Patient denies any tobacco usage or history of. - Family history:: not pertinent. ROS: 13:40 Constitutional: Negative for fever, chills, and weight loss, Eyes: Negative for injury, annie pain, redness, and discharge, ENT: Negative for injury, pain, and discharge, Neck: Negative for injury, pain, and swelling, Cardiovascular: Negative for chest pain, palpitations, and edema, Respiratory: Negative for shortness of breath, cough, wheezing, and pleuritic chest pain, Abdomen/GI: Negative for abdominal pain, nausea, vomiting, diarrhea, and constipation, Back: Negative for injury and pain, : Negative for injury, bleeding, discharge, and swelling, Skin: Negative for injury, rash, and discoloration, Neuro: Negative for headache, weakness, numbness, tingling, and seizure, Psych: Negative for depression, anxiety, suicide ideation, homicidal ideation, and hallucinations, Allergy/Immunology: Negative for hives, rash, and allergies, Endocrine: Negative for neck swelling, polydipsia, polyuria, polyphagia, and marked weight changes, Hematologic/Lymphatic: Negative for swollen nodes, abnormal bleeding, and unusual bruising. 13:40 MS/extremity: Positive for decreased range of motion, pain, tenderness, of the left quadriceps. Exam: 13:40 Constitutional: This is a well developed, well nourished patient who is awake, alert, annie and in no acute distress. Head/Face: Normocephalic, atraumatic. Eyes: Pupils equal round and reactive to light, extra-ocular motions intact. Lids and lashes normal. Conjunctiva and sclera are non-icteric and not injected. Cornea within normal limits. Periorbital areas with no swelling, redness, or edema. ENT: Nares patent. No nasal discharge, no septal abnormalities noted. Tympanic membranes are normal and external auditory canals are clear. Oropharynx with no redness, swelling, or masses, exudates, or evidence of obstruction, uvula midline. Mucous membranes moist. Neck: Trachea midline, no thyromegaly or masses palpated, and no cervical lymphadenopathy. Supple, full range of motion without nuchal rigidity, or vertebral point tenderness. No Meningismus. Chest/axilla: Normal chest wall appearance and motion. Nontender with no deformity. No lesions are appreciated. Cardiovascular: Regular rate and rhythm with a normal S1 and S2. No gallops, murmurs, or rubs. Normal PMI, no JVD. No pulse deficits. Respiratory: Lungs have equal breath sounds bilaterally, clear to auscultation and percussion. No rales, rhonchi or wheezes noted. No increased work of breathing, no retractions or nasal flaring. Abdomen/GI: Soft, non-tender, with normal bowel sounds. No distension or tympany. No guarding or rebound. No evidence of tenderness throughout. Back: No spinal tenderness. No costovertebral tenderness. Full range of motion. Male : Normal genitalia with no discharge or lesions. Skin: Warm, dry with normal turgor. Normal color with no rashes, no lesions, and no evidence of cellulitis. Neuro: Awake and alert, GCS 15, oriented to person, place, time, and situation. Cranial nerves II-XII grossly intact. Motor strength 5/5 in all extremities. Sensory grossly intact. Cerebellar exam normal. Normal gait. Psych: Awake, alert, with orientation to person, place and time. Behavior, mood, and affect are within normal limits. 13:40 Musculoskeletal/extremity: ROM: full active range of motion, full passive range of motion, Circulation is intact in all extremities. Sensation intact. Compartment Syndrome exam of affected extremity: is normal. DVT Exam: No signs of deep vein thrombosis. no swelling, negative Homans' sign noted on exam, no appreciated bluish discoloration, no erythema, no increased warmth, pain, tenderness. Vital Signs: 11:54 BP 137 / 84; Pulse 67; Resp 17; Temp 98.; Pulse Ox 98% ; Weight 83.46 kg; Height 5 ft. jl7 5 in. (165.10 cm); Pain 8/10; 13:10 BP 146 / 94; Pulse 62; Resp 14; Pulse Ox 97% ; ko1 14:22 BP 125 / 84; Pulse 58; Resp 16; Temp 98; Pulse Ox 97% ; ko1 11:54 Body Mass Index 30.62 (83.46 kg, 165.10 cm) jl7 MDM: 11:59 Patient medically screened. [facility] 13:43 Differential diagnosis: closed fracture, contusion, tendonitis. Data reviewed: vital annie signs, nurses notes, lab test result(s), radiologic studies, doppler, plain films. Data interpreted: ekg monitor tech: rate is 62 beats/min, rhythm is regular, Pulse oximetry: on room air is 97 %. Test interpretation: by ED physician or midlevel provider: plain radiologic studies. Counseling: I had a detailed discussion with the patient and/or guardian regarding: the historical points, exam findings, and any diagnostic results supporting the discharge/admit diagnosis, lab results, radiology results, the need for outpatient follow up, for definitive care, a family practitioner. 06/14 12:01 Order name: Comprehensive Metabolic Panel; Complete Time: 13:40 annie 06/14 12:01 Order name: CBC with Diff; Complete Time: 12:58 annie 06/14 12:01 Order name: US Extremity Venous Unilateral Ltd; Complete Time: 13:40 annie 06/14 12:01 Order name: Femur Left XRAY; Complete Time: 12:58 annie Administered Medications: 12:48 Not Given (Other Intervention Used): NS 0.9% 500 ml IV at bolus once ph 12:48 Not Given (Other Intervention Used): fentaNYL (PF) 25 mcg IVP once ph 12:48 Not Given (Other Intervention Used): Zofran (Ondansetron) 4 mg IVP once; over 2 minutes ph 13:03 Drug: [place] (HYDROcodone-acetaminophen) 10 mg-325 mg 1 tabs Route: PO; ph 15:00 Follow up: Response: No adverse reaction ph 13:03 Drug: Zofran (Ondansetron) 4 mg Route: PO; ph 15:00 Follow up: Response: No adverse reaction ph 14:29 Drug: Potassium Effervescent Tablet 25 mEq Route: PO; ko1 15:00 Follow up: Response: No adverse reaction ph Disposition Summary: 06/14/22 13:53 Discharge Ordered Location: Home annie Problem: new annie Symptoms: have improved annie Condition: Stable annie Diagnosis - Pain in left leg annie - Hypokalemia annie Followup: annie - With: Private Physician - When: 2 - 3 days - Reason: Recheck today's complaints, Continuance of care, Re-evaluation by your physician Discharge Instructions: - Discharge Summary Sheet annie - Potassium Content of Foods annie - Musculoskeletal Pain annie - Hypokalemia annie Forms: - Medication Reconciliation Form annie - Thank You Letter annie - Antibiotic Education annie - Prescription Opioid Use annie - Work release form eb Prescriptions: - Tylenol-Codeine #3 300 mg-30 mg Oral - take 2 tablet by ORAL route every 6 hours; 15 tablet; Refills: 0, Product annie Selection Permitted - Ibuprofen 600 mg Oral Tablet - take 1 tablet by ORAL route every 8 hours As needed take with food; 21 tablet; annie Refills: 0, Product Selection Permitted Signatures: Dispatcher [employer] Isaiah Erwin MD MD cha Hall, Patricia RN RN Mary Jane Gale, RN RN jl7 Helen Balderas RN RN ko1
[2022-06-14] MEDS ORDERED: POTASSIUM 25 MEQ EFFERV TAB ONE (14:37)
[2022-06-14 15:26] VITALS: TEMP 98
[2022-06-14 15:29] VITALS: O2SAT 97
[2022-06-14 15:31] VITALS: BP 125/84
== END 2022-06-14 14:40 | disposition home or self-care (01) ==
LOC: ER 11:22
DX: M79.605 Pain in left leg (principal); E87.6 Hypokalemia; Z86.73 Personal history of transient ischemic attack (TIA), and cerebral infarction without residual deficits; Z91.018 Allergy to other foods
CPT/HCPCS: 85025; 36415; 80053; 73552; 93971; 99284; Q0162; J7040; J2405; J3010

== ENCOUNTER 2022-06-23 09:16 | Emergency (ER) | payer OTHER ==
--- OUTSIDE RECORDS SUMMARY | 2022-06-23 09:19 | XMS REPORT | Continuity of Care Document ---
:1985 Author Organization [facility] t Address [address] [place] [address] Dr. Francois. [address] [place] [address] Care Team Providers Name Role Phone Alejandro [...] Facility Department ID 2021-10-29 Outpatient Allen, [facility] [id number] Common 12:21:25 Jethro [id number] [facility] 2021-10-29 Outpatient AllenST karissaLC [facility] [id number] Common 12:19:51 Jethro [id number] [facility] 2021-10-29 Outpatient Allen, [facility] [id number] Common 12:16:00 Jethro [id number] [facility] 2020-10-15 2020-10-15 Outpatient [facility] [id number] Common 00:00:00 00:00:00 [facility] 2020-09-25 2020-09-25 Outpatient [facility] [id number] Common 00:00:00 00:00:00 [facility] Results This patient has no known results.
[2022-06-23] MEDS ORDERED: LORazepam 2 MG/ML VIAL ONE (09:31)
[2022-06-23 09:55] LABS: Absolute Lymphocytes (CBC) 1.6 K/uL (0.7-4.9); Hematocrit 43.1 % (39.6-49.0); Lymphocytes % 32.3 % (15.3-44.8); MCV 82.8 fL (80-100); MPV 7.9 fL (7.6-11.3)
[2022-06-23 09:59] LABS: ALT/SGPT 37 U/L (12-78); AST/SGOT 22 U/L (15-37); Albumin 4.1 g/dL (3.4-5.0); Alkaline Phosphatase 63 U/L (45-117); BUN Blood Urea Nitrogen 8 mg/dL (7-18); Bicarbonate 25 mmol/L (21-32); Bilirubin Direct 0.2 mg/dL (0-0.2); Bilirubin Total 0.7 mg/dL (0.2-1.0); Glomerular Filtration Rate 115 ml/min (=/>90); Glucose Level 114 mg/dL (74-106); Potassium 3.7 mmol/L (3.5-5.1); Protein, Total 7.6 g/dL (6.4-8.2); Sodium Level 139 mmol/L (136-145)
[2022-06-23] MEDS ORDERED: NA CHLORIDE 0.9% 100 ML ONE (10:06)
[2022-06-23] MEDS ORDERED: LEVETIRACETAM 500 MG/5 ML VIAL IV ONE (10:06)
--- NOTE | 2022-06-23 10:46 | RAD REPORT ---
EXAM DESCRIPTION: RAD - Foot Right 3 View - 06/23/2022 10:39 am CLINICAL HISTORY: PAIN COMPARISON: No comparisons FINDINGS: No fracture, dislocation or periosteal reaction. No acute or destructive bone process. No plantar or Achilles spurring seen. No air or foreign body in the soft tissues. IMPRESSION: Negative right foot examination for acute or significant finding.
[2022-06-23 11:51] LABS: Urine Blood Negative (Negative); Urine Glucose Negative (Negative); Urine Protein Negative (Negative); Urine pH 5.5 (5.0-7.0)
[2022-06-23 12:10] LABS: Barbiturates NEGATIVE (NEGATIVE); Benzodiazepines NEGATIVE (NEGATIVE); Cocaine NEGATIVE (NEGATIVE); METHAMPHETAM NEGATIVE (NEGATIVE); Methadone NEGATIVE (NEGATIVE); Opiates NEGATIVE (NEGATIVE); Phencyclidine NEGATIVE (NEGATIVE); THC Cannibis NEGATIVE (NEGATIVE)
--- NOTE | 2022-06-23 13:22 | ER ---
Nurse's Notes [facility] Name: Shan Faye Age: 36 yrs Sex: Male : 1985 Arrival Date: 06/23/2022 Time: 09:18 Bed 3 Private MD: Diagnosis: Other seizures Presentation: 06/23 09:23 Chief complaint: EMS states: seizure this morning. Pt states, "I missed my morning ss medications because my mom has them and she wasn't home.". Coronavirus screen: Client denies travel out of the [place] in the last 14 days. Ebola Screen: Patient denies exposure to infectious person. Patient denies travel to an Ebola-affected area in the 21 days before illness onset. Initial Sepsis Screen: Does the patient meet any 2 criteria? No. Patient's initial sepsis screen is negative. Does the patient have a suspected source of infection? No. Patient's initial sepsis screen is negative. Risk Assessment: Do you want to hurt yourself or someone else? Patient reports no desire to harm self or others. Onset of symptoms was June 23, 2022. 09:23 Method Of Arrival: EMS: [facility] 09:23 Acuity: PAULINE 3 09:25 Care prior to arrival: IV initiated. 20 GA, in the left antecubital area, BGL "WNL". ss Historical: - Allergies: 09:25 Potato; ss - PMHx: 09:25 brain disorder; CVA; Seizure; ss - PSHx: 09:25 Cholecystectomy; ss - Immunization history:: Adult Immunizations up to date. - Social history:: Smoking status: Patient denies any tobacco usage or history of. Screenin:26 Abuse screen: Denies threats or abuse. Denies injuries from another. Nutritional jl7 screening: No deficits noted. Tuberculosis screening: No symptoms or risk factors identified. Fall Risk IV access (20 points). Total English Fall Scale indicates No Risk (0-24 pts). Assessment: 09:30 General: Appears in no apparent distress. uncomfortable, Behavior is calm, cooperative, jl7 appropriate for age. Pain: Complains of pain in dorsum of right foot. Neuro: Level of Consciousness is awake, alert, obeys commands, Oriented to person, place, time, situation. Cardiovascular: Patient's skin is warm and dry. Respiratory: Airway is patent Respiratory effort is even, unlabored, Respiratory pattern is regular, symmetrical. Derm: Skin is pink, warm \\T\\ dry. 10:30 Reassessment: Patient and/or family updated on plan of care and expected duration. Pain jh6 level reassessed. pt had two seizures lasting aprox 1-15 seconds, without postictal state. Provider made aware and meds ordered if seizures continue. 11:30 Reassessment: Patient and/or family updated on plan of care and expected duration. Pain jh6 level reassessed. pt sleeping nad noted, Keppra completed and has had no further episodes of seizures. 13:00 Reassessment: Patient and/or family updated on plan of care and expected duration. Pain jh6 level reassessed. Patient is alert, oriented x 3, equal unlabored respirations, skin warm/dry/pink. Pt sleeping when walked into room. Mother reporting no other seizure type activity while in the room. Pt woke up on his own when speaking to mother and when asked if he had any pain, pt reported no. Patient denies pain at this time. 14:05 Reassessment: No changes from previously documented assessment. [facility] Vital Signs: 09:25 BP 115 / 77; Pulse 80; Resp 15; Temp 97; Pulse Ox 99% ; jl7 10:02 BP 130 / 97; Pulse 68; Resp 16; Pulse Ox 100% on R/A; jl7 10:55 BP 131 / 91; Pulse 68; Resp 15; Pulse Ox 95% ; jl7 12:00 BP 107 / 82; Pulse 59; Resp 15; Pulse Ox 96% ; jl7 13:05 BP 123 / 90; Pulse 59; Resp 16; Pulse Ox 97% ; Pain 0/10; jh6 14:05 BP 122 / 83; Pulse 58; Resp 17; Temp 98; Pain 0/10; 6 Benjamín Coma Score: 09:25 Eye Response: spontaneous(4). Verbal Response: oriented(5). Motor Response: obeys ss commands(6). Total: 15. ED Course: 09:18 Patient arrived in ED. bd 09:19 Rainer Kerr PA is PHCP. [facility] 09:19 Dai Barker MD is Attending Physician. [facility] 09:20 Potter, Jahala, RN is Primary Nurse. [facility] 09:25 Triage completed. 09:26 Patient has correct armband on for positive identification. Placed in gown. Bed in low jl7 position. Call light in reach. Side rails up X2. Seizure precautions initiated. Client placed on continuous cardiac and pulse oximetry monitoring. NIBP monitoring applied. 09:27 Arm band placed on right wrist. 7 09:30 Initial lab(s) drawn, by me, sent to lab. EKG done, by ED staff, reviewed by Rainer KELLEY. Maintain EMS IV. Dressing intact. Good blood return noted. Site clean \\T\\ dry. Gauge \\T\\ site: 18 left AC. 10:35 Foot Right 3 View XRAY In Process Unspecified. EDMS 13:57 Home Duong DPM is Referral Physician. [facility] 14:06 No provider procedures requiring assistance completed. IV discontinued, intact, 6 bleeding controlled, No redness/swelling at site. Pressure dressing applied. Administered Medications: 09:20 Drug: Ativan (LORazepam) 1 mg Route: IVP; Site: left antecubital; [facility] 14:07 Follow up: Response: No change in condition [facility] 10:01 Drug: Keppra (levETIRAcetam) 1000 mg Route: IV; Rate: calculated rate; Site: left 7 antecubital; 12:00 Follow up: IV Status: Completed infusion [facility] 13:34 Not Given (not neededd): Ativan (LORazepam) 1 mg IVP once 6 Medication: 09:26 VIS not applicable for this client. [facility] Outcome: 13:21 Discharge ordered by MD. [facility] 14:06 Discharged to home ambulatory. [facility] 14:06 Condition: good 14:06 Discharge instructions given to patient, family, Instructed on discharge instructions, follow up and referral plans. Demonstrated understanding of instructions, follow-up care. 14:07 Patient left the ED. [facility] Signatures: Dispatcher [employer] EDMS Gretchen Melendez Joel, PA PA jmm Smirch, Shelby, RN RN ss Leal, Jahala, RN RN jl7 Radha Cam RN RN 6 Corrections: (The following items were deleted from the chart) 09:28 09:26 BP 142 / 106; Pulse 76bpm; Resp 16bpm; Pulse Ox 96% RA; ss ss 10:02 09:30 Maintain EMS IV. Dressing intact. Good blood return noted. Site clean \\T\\ dry. jl7 Gauge \\T\\ site: 18 right AC. jl7
--- NOTE | 2022-06-23 13:22 | EDPHYS ---
Physician Documentation [facility] Name: Shan Faye Age: 36 yrs Sex: Male : 1985 Arrival Date: 06/23/2022 Time: 09:18 Bed 3 Private MD: ED Physician Dai Barker HPI: 06/23 09:18 This 36 yrs old Male presents to ER via EMS with complaints of Seizure. jmm 09:18 This is a 36-year-old male with a history of CVA, epilepsy the presents emerged [facility] department with complaints of multiple seizures beginning earlier today. Patient did not receive his Keppra dose this morning.. Historical: - Allergies: 09:25 Potato; ss - PMHx: 09:25 brain disorder; CVA; Seizure; ss - PSHx: 09:25 Cholecystectomy; ss - Immunization history:: Adult Immunizations up to date. - Social history:: Smoking status: Patient denies any tobacco usage or history of. ROS: 09:18 Constitutional: Negative for fever, chills, and weight loss, Cardiovascular: Negative jm for chest pain, palpitations, and edema, Respiratory: Negative for shortness of breath, cough, wheezing, and pleuritic chest pain. 09:18 Neuro: Positive for seizure activity. 09:18 All other systems are negative. Exam: 09:18 Constitutional: This is a well developed, well nourished patient who is awake, alert, jmm and in no acute distress. Head/Face: atraumatic. Eyes: EOMI, no conjunctival erythema appreciated ENT: Moist Mucus Membranes Neck: Trachea midline, Supple Chest/axilla: Normal chest wall appearance and motion. Cardiovascular: Regular rate and rhythm. No edema appreciated Respiratory: Normal respirations, no respiratory distress appreciated Abdomen/GI: Non distended Back: Normal ROM Skin: General appearance color normal MS/ Extremity: Moves all extremities, no obvious deformities appreciated, no edema noted to the lower extremities 09:18 Neuro: Orientation: is normal, Mentation: is normal, Memory: is normal, seizure activity, grand mal type is displayed. 09:18 Psych: Behavior/mood is pleasant, cooperative. Vital Signs: 09:25 BP 115 / 77; Pulse 80; Resp 15; Temp 97; Pulse Ox 99% ; jl7 10:02 BP 130 / 97; Pulse 68; Resp 16; Pulse Ox 100% on R/A; jl7 10:55 BP 131 / 91; Pulse 68; Resp 15; Pulse Ox 95% ; jl7 12:00 BP 107 / 82; Pulse 59; Resp 15; Pulse Ox 96% ; jl7 13:05 BP 123 / 90; Pulse 59; Resp 16; Pulse Ox 97% ; Pain 0/10; jh6 14:05 BP 122 / 83; Pulse 58; Resp 17; Temp 98; Pain 0/10; jh6 Benjamín Coma Score: 09:25 Eye Response: spontaneous(4). Verbal Response: oriented(5). Motor Response: obeys ss commands(6). Total: 15. MDM: 09:19 Patient medically screened. keith 13:21 Data reviewed: vital signs, nurses notes. Counseling: I had a detailed discussion with keith the patient and/or guardian regarding: the historical points, exam findings, and any diagnostic results supporting the discharge/admit diagnosis, the need for outpatient follow up, to return to the emergency department if symptoms worsen or persist or if there are any questions or concerns that arise at home. 15:26 ED course: Mother stated patient has had difficulty putting weight on his right foot. jmm Denies any known injury. X-rays were obtained revealing no fracture. Patient was given IV Keppra. No seizures developed subsequently. Patient and mother were advised follow-up with podiatry for further evaluation of his right foot pain. Also advised to continue his antiepileptic as prescribed. 06/23 09:19 Order name: Acetaminophen; Complete Time: 10:06 [facility] 06/23 09:19 Order name: Basic Metabolic Panel; Complete Time: 10:06 [facility] 06/23 09:19 Order name: CBC with Diff; Complete Time: 10:06 [facility] 06/23 09:19 Order name: ETOH Level; Complete Time: 10: [facility] 06/23 09:19 Order name: Hepatic Function; Complete Time: 10:06 [facility] 06/23 09:19 Order name: PT-INR; Complete Time: 10: [facility] 06/23 09:19 Order name: Ptt, Activated; Complete Time: 10:06 [facility] 06/23 09:19 Order name: Salicylate; Complete Time: 10:06 [facility] 06/23 09:19 Order name: Urine Drug Screen; Complete Time: 12:16 [facility] 06/23 09:53 Order name: Foot Right 3 View XRAY; Complete Time: 10:47 [facility] 06/23 11:52 Order name: Urine Dipstick-Ancillary; Complete Time: 11:52 [facility] 06/23 09:19 Order name: EKG; Complete Time: 09:20 [facility] 06/23 09:19 Order name: EKG - Nurse/Tech; Complete Time: 09:36 [facility] 06/23 09:19 Order name: IV Saline Lock; Complete Time: 09:36 [facility] 06/23 09:19 Order name: Labs collected and sent; Complete Time: 09:36 [facility] 06/23 09:19 Order name: Suicide Screening ([place]); Complete Time: 09:36 [facility] 06/23 09:19 Order name: Urine Dipstick-Ancillary (obtain specimen); Complete Time: 11:57 [facility] Administered Medications: 09:20 Drug: Ativan (LORazepam) 1 mg Route: IVP; Site: left antecubital; [facility] 14:07 Follow up: Response: No change in condition [facility] 10:01 Drug: Keppra (levETIRAcetam) 1000 mg Route: IV; Rate: calculated rate; Site: left [facility] antecubital; 12:00 Follow up: IV Status: Completed infusion [facility] 13:34 Not Given (not neededd): Ativan (LORazepam) [address] [facility] Disposition Summary: 06/23/22 13:21 Discharge Ordered Location: Home jmm Condition: Stable jmm Diagnosis - Other seizures jmm Followup: jmm - With: Private Physician - When: 2 - 3 days - Reason: Recheck today's complaints, Continuance of care, Re-evaluation by your physician Followup: jmm - With: Home Duong DPM - When: 2 - 3 days - Reason: Recheck today's complaints, Continuance of care, Re-evaluation by your physician Discharge Instructions: - Discharge Summary Sheet jmm - Seizure, Adult jmm Forms: - Medication Reconciliation Form jmm - Thank You Letter jmm - Antibiotic Education jmm - Prescription Opioid Use jmm Signatures: Dispatcher [employer] EDMS Rainer Kerr PA PA Shayna Morgan RN RN Mary Jane Potter RN RN jl7 Radha Cam, RN RN jh6
--- NOTE | 2022-06-24 12:48 | EKG ---
Test Date: 2022-06-23 Test Time: 09:30:49 Drawstring Knotter: PABLO MEASUREMENT RESULTS: Intervals: Rate: 69 [place]: 142 QRSD: 88 QT: 394 QTc: 422 [place]: P: 27 [place]: 142 QRS: -4 T: 8 INTERPRETIVE STATEMENTS: Normal sinus rhythm Normal ECG Compared to ECG 03/27/2022 18:45:11 No significant changes Electronically Signed On 06-24-22 12:46:39 CDT by Joseph Harris
[2022-06-24 16:49] VITALS: O2SAT 97
[2022-06-24 16:56] VITALS: BP 122/83; TEMP 98
== END 2022-06-23 14:07 | disposition home or self-care (01) ==
LOC: ER 09:16
DX: R56.9 Unspecified convulsions (principal)
CPT/HCPCS: 96365; 93005; 85025; 80048; 36415; 80320; 80329 ×2; 85610; 80076; 85730; 81003; 80307; 73630; 96375; 99284; 96366; J1953

== ENCOUNTER 2022-07-01 05:18 | Emergency (ER) | payer OTHER ==
--- OUTSIDE RECORDS SUMMARY | 2022-07-01 05:21 | XMS REPORT | Continuity of Care Document ---
:1985 Author Organization [facility] t Address [address] [place] [address] Dr. Francois[address] [place] [address] Care Team Providers Name Role Phone Alejandro [...] Facility Department ID 2021-10-29 Outpatient Allen, [facility] [id number] Common 12:21:25 Jethro [id number] [facility] 2021-10-29 Outpatient [facility]ST [facility] [id number] Common 12:19:51 Jethro [id number] [facility] 2021-10-29 Outpatient Allen, [facility] [id number] Common 12:16:00 Jethro [id number] [facility] 2020-10-15 2020-10-15 Outpatient [facility] [id number] Common 00:00:00 00:00:00 [facility] 2020-09-25 2020-09-25 Outpatient [facility] [id number] Common 00:00:00 00:00:00 [facility] Results This patient has no known results.
[2022-07-01] MEDS ORDERED: LORazepam 2 MG/ML VIAL ONE (05:44)
[2022-07-01] MEDS ORDERED: LEVETIRACETAM 500 MG/5 ML VIAL IV ONE (05:47)
[2022-07-01] MEDS ORDERED: ONDANSETRON 4 MG/2 ML VIAL ONE (05:48)
[2022-07-01] MEDS ORDERED: NA CHLORIDE 0.9% 100 ML ONE (05:48)
[2022-07-01 05:54] LABS: Hematocrit 44.9 % (39.6-49.0); Lymphocytes % 28.7 % (15.3-44.8); MCV 83.9 fL (80-100); MPV 7.8 fL (7.6-11.3); RBC Red Blood Cell Count 5.34 M/uL (4.33-5.43)
[2022-07-01 06:10] LABS: Albumin 4.2 g/dL (3.4-5.0); Bilirubin Total 0.6 mg/dL (0.2-1.0); Potassium 3.7 mmol/L (3.5-5.1); Protein, Total 7.8 g/dL (6.4-8.2)
--- NOTE | 2022-07-01 06:36 | ER ---
Nurse's Notes [facility] Name: Shan Faye Age: 36 yrs Sex: Male : 1985 Arrival Date: 07/01/2022 Time: 05:27 Bed 5 Private MD: Diagnosis: Other seizures Presentation: 07/01 05:32 Chief complaint: Parent and/or Guardian states: pt is here for seizures pt actively bb seizing in registration witnessed by this RN lasting a few seconds. Coronavirus screen: At this time, the client does not indicate any symptoms associated with coronavirus-19. Ebola Screen: No symptoms or risks identified at this time. Initial Sepsis Screen: Does the patient meet any 2 criteria? No. Patient's initial sepsis screen is negative. Does the patient have a suspected source of infection? No. Patient's initial sepsis screen is negative. Risk Assessment: Do you want to hurt yourself or someone else? Patient reports no desire to harm self or others. Onset of symptoms was July 01, 2022. 05:32 Method Of Arrival: Wheelchair bb 05:32 Acuity: PAULINE 2 bb Triage Assessment: 05:57 General: Appears in no apparent distress. uncomfortable, slender, Behavior is calm. vc1 Historical: - Allergies: 05:36 Potato; bb - PMHx: 05:36 brain disorder; CVA; Seizure; bb - PSHx: 05:36 Cholecystectomy; bb Screenin:57 Abuse screen: Denies threats or abuse. Nutritional screening: No deficits noted. vc1 Tuberculosis screening: No symptoms or risk factors identified. Fall Risk None identified. Assessment: 05:56 Reassessment: See triage assessment. Pain: Complains of pain in mom states he told her vc1 he had a headache. Neuro: [place] Agitation-Sedation Scale (RASS): -2 Light sedation. 06:27 Reassessment: Patient and/or family updated on plan of care and expected duration. Pain vc1 level reassessed. General: Appears comfortable. Neuro: Level of Consciousness is post ictal. 06:32 Reassessment: Placed on 1L NC oxygen dropped to 91%, pt snoring. vc1 Vital Signs: 05:32 BP 153 / 95; Pulse 61; Resp 16 S; Temp 96.7(A); Pulse Ox 98% on R/A; Weight 86.18 kg bb (R); Height 5 ft. 6 in. (167.64 cm) (R); 06:27 BP 129 / 86; Pulse 72; Resp 18; Pulse Ox 92% ; vc1 05:32 Body Mass Index 30.67 (86.18 kg, 167.64 cm) bb Benjamín Coma Score: 06:36 Eye Response: to voice(3). Verbal Response: incomprehensible(2). Motor Response: vc1 localizes pain(5). Total: 10. ED Course: 05:27 Patient arrived in ED. ja2 05:36 Triage completed. bb 05:36 Arm band placed on Patient placed in an exam room, on a stretcher, on director of cardiac cath lab, bb on pulse oximetry. Family accompanied patient. 05:37 Deysi Fair RN is Primary Nurse. vc1 05:38 Ariana Allen MD is Attending Physician. sp3 05:40 Patient has correct armband on for positive identification. Bed in low position. Call vc1 light in reach. Seizure precautions initiated. 05:41 Inserted saline lock: 20 gauge in right antecubital area, using aseptic technique. jb5 Blood collected. 05:45 CBC with Diff Sent. jb5 05:45 CMP Sent. jb5 05:45 Lipase Sent. jb5 06:53 No provider procedures requiring assistance completed. IV discontinued, intact, vc1 bleeding controlled, No redness/swelling at site. Pressure dressing applied. Administered Medications: 05:50 Drug: Ativan (LORazepam) 2 mg Route: IVP; Site: right antecubital; bb 06:36 Follow up: Response: Marked relief of symptoms; RASS: Moderate sedation (-3) vc1 05:55 Drug: Keppra (levETIRAcetam) 1000 mg Route: IV; Rate: calculated rate; Site: right vc1 antecubital; 05:56 Drug: Zofran (Ondansetron) 4 mg Route: IVP; Site: right antecubital; vc1 06:31 Follow up: Response: No adverse reaction; Marked relief of symptoms vc1 Medication: 06:36 VIS not applicable for this client. vc1 Outcome: 06:35 Discharge ordered by . sp3 06:53 Discharged to home via wheelchair, with family. vc1 06:53 Condition: stable 06:53 Discharge instructions given to skidder loader, Instructed on discharge instructions, follow up and referral plans. Demonstrated understanding of instructions, follow-up care. 06:54 Patient left the ED. vc1 Signatures: Kate White RN RN bb Radha Walker jb5 Ariana Allen MD MD sp3 Meaghan Yo Vanessa, RN RN vc1 Corrections: (The following items were deleted from the chart) 05:37 05:32 BP 153 / 95; Pulse 61bpm; Resp 16bpm; Spontaneous; Pulse Ox 98% RA; 86.18 kg bb Reported; bb 05:38 05:32 BP 153 / 95; Pulse 61bpm; Resp 16bpm; Spontaneous; Pulse Ox 98% RA; 86.18 kg bb Reported; Height 5 ft. 6 in. Reported; BMI: 30.6; bb
--- NOTE | 2022-07-01 06:36 | EDPHYS ---
Physician Documentation [facility] Name: Shan Faye Age: 36 yrs Sex: Male : 1985 Arrival Date: 07/01/2022 Time: 05:27 Bed 5 Private MD: ED Physician Ariana Allen HPI: 07/01 06:10 This 36 yrs old Male presents to ER via Wheelchair with complaints of Seizure, sp3 Headache. 06:10 6-year-old male with a history of close head injury, prior CVA, and seizure history sp3 well-known to the emergency department presents again today for chief complaint breakthrough seizures as well as some nausea which was a little different today. Really denies fever, new injury, rash, chest pain, abdominal pain, vomiting, diarrhea, any other changes in behavior, or any other ROS at this time. Patient did have 1 witnessed seizure in the waiting room and had another 1 once patient was brought back. They state that there has been no change in medications and patient has been taking his Keppra as directed.. Historical: - Allergies: 05:36 Potato; bb - PMHx: 05:36 brain disorder; CVA; Seizure; bb - PSHx: 05:36 Cholecystectomy; bb ROS: 06:12 Eyes: Negative for injury, pain, redness, and discharge, ENT: Negative for injury, sp3 pain, and discharge, Neck: Negative for injury, pain, and swelling, Cardiovascular: Negative for chest pain, palpitations, and edema, Respiratory: Negative for shortness of breath, cough, wheezing, and pleuritic chest pain, Abdomen/GI: Negative for abdominal pain, nausea, vomiting, diarrhea, and constipation, Back: Negative for injury and pain, MS/Extremity: Negative for injury and deformity, Allergy/Immunology: Negative for hives, rash, and allergies, Endocrine: Negative for neck swelling, polydipsia, polyuria, polyphagia, and marked weight changes, Hematologic/Lymphatic: Negative for swollen nodes, abnormal bleeding, and unusual bruising. 06:12 All other systems are negative. Exam: 06:12 Constitutional: This is a well developed, well nourished patient who is awake, alert, sp3 and in no acute distress. Head/Face: Normocephalic, atraumatic. Eyes: Pupils equal round and reactive to light, extra-ocular motions intact. Lids and lashes normal. Conjunctiva and sclera are non-icteric and not injected. Cornea within normal limits. Periorbital areas with no swelling, redness, or edema. ENT: Nares patent. No nasal discharge, no septal abnormalities noted. External auditory canals are clear. Oropharynx with no redness, swelling, or masses, exudates, or evidence of obstruction, uvula midline. Mucous membranes moist. Neck: Trachea midline, no thyromegaly or masses palpated, and no cervical lymphadenopathy. Supple, full range of motion without nuchal rigidity, or vertebral point tenderness. No Meningismus. Chest/axilla: Normal chest wall appearance and motion. Nontender with no deformity. No lesions are appreciated. Cardiovascular: Regular rate and rhythm with a normal S1 and S2. No gallops, murmurs, or rubs. Normal PMI, no JVD. No pulse deficits. Respiratory: Lungs have equal breath sounds bilaterally, clear to auscultation and percussion. No rales, rhonchi or wheezes noted. No increased work of breathing, no retractions or nasal flaring. Abdomen/GI: Soft, non-tender, with normal bowel sounds. No distension or tympany. No guarding or rebound. No evidence of tenderness throughout. Skin: Warm, dry with normal turgor. Normal color with no rashes, no lesions, and no evidence of cellulitis. MS/ Extremity: Pulses equal, no cyanosis. Neurovascular intact. Full, normal range of motion. Psych: Awake, alert, with orientation to person, place and time. Behavior, mood, and affect are within normal limits. 06:12 Neuro: Patient had 2 active seizures and had appropriate postictal period after each 1. Neuro exam is grossly intact but fine neuro exam was not possible due to patient's baseline status and postictal state.. Vital Signs: 05:32 BP 153 / 95; Pulse 61; Resp 16 S; Temp 96.7(A); Pulse Ox 98% on R/A; Weight 86.18 kg bb (R); Height 5 ft. 6 in. (167.64 cm) (R); 06:27 BP 129 / 86; Pulse 72; Resp 18; Pulse Ox 92% ; vc1 05:32 Body Mass Index 30.67 (86.18 kg, 167.64 cm) [place] Coma Score: 06:36 Eye Response: to voice(3). Verbal Response: incomprehensible(2). Motor Response: vc1 localizes pain(5). Total: 10. MDM: 05:44 Patient medically screened. sp3 06:12 Data reviewed: vital signs, nurses notes. ED course: Pain laboratory values, administer sp3 Keppra 1 g IV, Zofran 4 mg IV, and observe patient. If work-up is negative we will discharge patient home with follow-up to his neurologist. Patient had a negative head CT in January of this year. No further CT is indicated at this time.. 06:34 ED course: Labs are WNL and pt has not had any more seizures since the Ativan. Keppra sp3 is infusing and we will d/c pt once it is complete.. 07/01 05:43 Order name: CBC with Diff sp3 07/01 05:43 Order name: CMP sp3 07/01 05:43 Order name: Lipase sp3 07/01 05:58 Order name: CBC with Automated Diff; Complete Time: 06:27 EDMS 07/01 06:10 Order name: Comprehensive Metabolic Panel; Complete Time: 06:27 EDMS 07/01 06:10 Order name: Lipase; Complete Time: 06:27 EDMS 07/01 05:43 Order name: IV Saline Lock; Complete Time: 05:45 sp3 07/01 05:43 Order name: Labs collected and sent; Complete Time: 05:45 sp3 Administered Medications: 05:50 Drug: Ativan (LORazepam) 2 mg Route: IVP; Site: right antecubital; bb 06:36 Follow up: Response: Marked relief of symptoms; RASS: Moderate sedation (-3) vc1 05:55 Drug: Keppra (levETIRAcetam) 1000 mg Route: IV; Rate: calculated rate; Site: right vc1 antecubital; 05:56 Drug: Zofran (Ondansetron) 4 mg Route: IVP; Site: right antecubital; vc1 06:31 Follow up: Response: No adverse reaction; Marked relief of symptoms vc1 Disposition Summary: 07/01/22 06:35 Discharge Ordered Location: Home sp3 Condition: Stable sp3 Diagnosis - Other seizures sp3 Followup: sp3 - With: Private Physician - When: Upon discharge from the Emergency Department - Reason: Continuance of care Discharge Instructions: - Discharge Summary Sheet sp3 - Seizure, Adult sp3 Forms: - Medication Reconciliation Form sp3 - Thank You Letter sp3 - Antibiotic Education sp3 - Prescription Opioid Use sp3 Signatures: Dispatcher [employer] Kate Aldana RN RN bb Patel, Setul, MD MD sp3 Deysi Fiar RN RN vc1
[2022-07-03 05:45] VITALS: TEMP 96.7
[2022-07-03 05:46] VITALS: BP 129/86; O2SAT 92
== END 2022-07-01 06:54 | disposition home or self-care (01) ==
LOC: ER 05:18
DX: G40.89 Other seizures (principal); Z91.018 Allergy to other foods
CPT/HCPCS: 85025; 36415; 83690; 80053; 96375; 96374; 99284; J1953; J2405

== ENCOUNTER 2022-07-02 00:07 | Emergency (ER) | payer OTHER ==
--- OUTSIDE RECORDS SUMMARY | 2022-07-02 00:10 | XMS REPORT | Continuity of Care Document ---
:[address] [facility] [place] t Address [address] [place] [address] Dr. Francois. [address] [place] [address] Care Team Providers Name Role Phone Alejandro [...] Facility Department ID 2021-10-29 Outpatient Allen, [facility] [id number] Common 12:21:25 Jethro [id number] [facility] 2021-10-29 Outpatient AllenST [facility]LC [facility] [id number] Common 12:19:51 Jethro [id number] [facility] 2021-10-29 Outpatient Allen, [facility] [id number] Common 12:16:00 Jethro [id number] [facility] 2020-10-15 2020-10-15 Outpatient [facility] [id number] Common 00:00:00 00:00:00 [facility] 2020-09-25 2020-09-25 Outpatient [facility] [id number] Common 00:00:00 00:00:00 [facility] Results This patient has no known results.
[2022-07-02] MEDS ORDERED: WATER FOR INJ,STERILE 10 ML ONE ×2 (01:12→23:58)
[2022-07-02] MEDS ORDERED: ZIPRASIDONE MESYLA 20 MG/VIAL IM ONE ×2 (01:12→23:58)
[2022-07-02 01:28] LABS: Absolute Lymphocytes (CBC) 2.4 K/uL (0.7-4.9); Hematocrit 43.9 % (39.6-49.0); Lymphocytes % 29.6 % (15.3-44.8); MCV 83.1 fL (80-100); MPV 7.8 fL (7.6-11.3); RBC Red Blood Cell Count 5.29 M/uL (4.33-5.43)
[2022-07-02 01:31] LABS: Protime INR 1.02
[2022-07-02 01:32] LABS: Urine Blood Trace-lysed (Negative); Urine Glucose Trace (Negative); Urine Protein Negative (Negative); Urine Specific Gravity >=1.030 (1.005-1.030); Urine pH 5.5 (5.0-7.0)
[2022-07-02 01:36] LABS: SARS-CoV-2 Antigen Rapid Res Negative (Negative)
[2022-07-02 01:38] LABS: Barbiturates NEGATIVE (NEGATIVE); Benzodiazepines NEGATIVE (NEGATIVE); Cocaine NEGATIVE (NEGATIVE); METHAMPHETAM NEGATIVE (NEGATIVE); Methadone NEGATIVE (NEGATIVE); Opiates NEGATIVE (NEGATIVE); Phencyclidine NEGATIVE (NEGATIVE); THC Cannibis NEGATIVE (NEGATIVE)
[2022-07-02 02:03] LABS: ALT/SGPT 35 U/L (12-78); AST/SGOT 19 U/L (15-37); Albumin 4.1 g/dL (3.4-5.0); Alkaline Phosphatase 78 U/L (45-117); BUN Blood Urea Nitrogen 15 mg/dL (7-18); Bicarbonate 28 mmol/L (21-32); Bilirubin Direct 0.1 mg/dL (0-0.2); Bilirubin Total 0.4 mg/dL (0.2-1.0); Glomerular Filtration Rate 113 ml/min (=/>90); Glucose Level 84 mg/dL (74-106); Potassium 3.2 mmol/L (3.5-5.1); Protein, Total 7.8 g/dL (6.4-8.2); Sodium Level 141 mmol/L (136-145)
--- NOTE | 2022-07-02 07:25 | ER ---
Nurse's Notes [facility] Name: Shan Faye Age: 36 yrs Sex: Male : 1985 Arrival Date: 07/02/2022 Time: 00:08 Bed 15 Private MD: Diagnosis: Suicidal ideations Presentation: 07/02 00:14 Chief complaint: Patient states: I tried to kill myself Mother reports found a rope kl around his neck tied to the ceiling fan. Coronavirus screen: Vaccine status: Patient reports receiving the 2nd dose of the covid vaccine. Ebola Screen: Patient negative for fever greater than or equal to 101.5 degrees Fahrenheit, and additional compatible Ebola Virus Disease symptoms. Initial Sepsis Screen: Does the patient meet any 2 criteria? No. Patient's initial sepsis screen is negative. Does the patient have a suspected source of infection? No. Patient's initial sepsis screen is negative. Risk Assessment: Do you want to hurt yourself or someone else? Patient reports desire/thoughts of hurting themselves or someone else. Provider notified. Onset of symptoms was July 02, 2022. 00:14 Method Of Arrival: Ambulatory kl 00:14 Acuity: PAULINE 2 kl Triage Assessment: 00:18 General: Appears uncomfortable, well groomed, well developed, Behavior is flat, quiet. Pain: Denies pain. Historical: - Allergies: 00:17 Potato; kl - Home Meds: 15:55 Keppra 750 mg Oral tab 2 tabs 2 times per day [Active]; Fycompa 6 mg oral tab 1 tab ss nightly [Active]; buspirone 7.5 mg Oral tab 1 tab three times a day [Active]; "Has not taken psych medication in weeks" [Active]; - PMHx: 00:17 brain disorder; CVA; Seizure; kl - PSHx: 00:17 Cholecystectomy; kl - Immunization history:: Adult Immunizations up to date. - Social history:: Smoking status: Patient denies any tobacco usage or history of. Screenin:23 Abuse screen: DANGER TO OTHERS. Nutritional screening: No deficits noted. Tuberculosis jj7 screening: No symptoms or risk factors identified. Fall Risk Mental Status- Oriented to own ability (0 pts). Assessment: 00:21 General: Appears in no apparent distress. Behavior is flat, listless. General: Reports jj7 SUICIDAL IDEATION. Neuro:. 02:06 Reassessment: PT STARTED TO BECOME COMBATIVE AND ATTACKED YONG CHAPPELL TECH. YONG morgan7 RESTRAINED PT'S HAND AND SAFELY REMOVED HIMSELF FROM THE ROOM UNTIL OTHER ER STAFF ARRIVED.. 03:00 Reassessment: PT CALM AND COOPERATIVE. NO DISTRESS NOTED. UP USING URINAL.. jj7 04:18 Reassessment: PT SPEAKING WITH [facility] ER VIA PHONE FOR PSYCH EVAL. jj7 04:53 Reassessment: PT IN BED SLEEPING. NO DISTRESS NOTED. SITTER AT BED DOOR. jj7 06:45 Reassessment: NURSE TO NURSE REPORT GIVEN TO ANDREW FERRO WITH [facility] . jj7 07:03 Reassessment: PT REPORT GIVEN TO HELEN FERRO. jj7 07:30 Reassessment: No changes from previously documented assessment. ko1 08:30 Reassessment: Patient eating breakfast, appears calm. ko1 10:20 Reassessment: Nurse to nurse report given to Radha at [phone]. ko1 12:00 Reassessment: Patients mother at bedside, updated on transfer. Mom is upset that she ko1 didn't know anything about the transfer, patient care provider Sintia Kerr updated, he went in to speak with the patient and his mother. 14:56 Reassessment: Deputy Eng at bedside discussing VIRGEN with patient and mother. ss 15:57 Reassessment: Rainer states OK to take home medications now provided by mother. Keppra ss 750 mg, Buspirone 7.5 mg, Fycompa 8 mg. Mother states, "He hasn't been taking him psych meds for some weeks now because [facility] told me not to give them to him when he is going crazy.". 16:25 Reassessment: Intake nurse at [facility] Department states that they ss declined patient because he was wheelchair bound and needed assistance with ADL's. Told intake nurse that patient in fact is NOT wheelchair bound and performs ADLs independently. 16:32 Reassessment: Refaxed all clinicals to [facility]. ss 17:56 Reassessment: Patient eating dinner, mother at bedside. ko1 19:22 General: Appears in no apparent distress. Behavior is calm. Respiratory: Respiratory as6 effort is even, unlabored. 07/03 00:00 General: Behavior is agitated, pt active, restless, pt attempted to elope from aa9 ambulance bay. 00:30 General: Behavior is agitated, combative, pt stating "I just want to go home. I don't aa9 want to be here anymore" pt active in room. pt threw chair at staff . 01:43 General: Appears in no apparent distress. comfortable, Behavior is calm, quiet. aa9 General: pt low folwers in bed, eyes closed, room lights off, door and curtain open for observation. . Neuro: Oriented to person, place, time, situation. Cardiovascular: Patient's skin is warm and dry. Respiratory: Airway is patent Respiratory effort is even, unlabored. 03:00 General: Appears in no apparent distress. comfortable, Behavior is calm, quiet. Neuro: aa9 [place] Agitation-Sedation Scale (RASS): -1 Drowsy. Cardiovascular: Patient's skin is warm and dry. Respiratory: Airway is patent Respiratory effort is even, unlabored, Respiratory pattern is regular. 04:09 General: Appears in no apparent distress. comfortable, Behavior is calm, quiet, pt aa9 supine in bed, eyes closed. Cardiovascular: Patient's skin is warm and dry. Respiratory: Airway is patent Respiratory effort is even, unlabored, Respiratory pattern is regular. 05:47 General: Appears in no apparent distress. comfortable, Behavior is calm, quiet. aa9 General: pt supine in bed, eyes closed. Neuro: [place] Agitation-Sedation Scale (RASS): -1 Drowsy. Cardiovascular: Patient's skin is warm and dry. Respiratory: Airway is patent Respiratory effort is even, unlabored, Respiratory pattern is regular. 08:24 Reassessment: Called [facility] who states that they currently do ss not have any beds at this time and will call back later if they do get any discharges. 10:45 Reassessment: No changes from previously documented assessment. supine in bed, eyes kr3 closed . Psych: 01:45 [place] Suicide Severity Screening: In the past month, have you wished you were aa9 or wished you could go to sleep and not wake up? Patient responds "yes." "In the past month, have you actually had any thoughts of killing yourself?" Patient responds "yes.". 15:52 [place] Suicide Severity Screening: "In the past month, have you actually had any kr3 thoughts of killing yourself?" Patient responds "yes." "In your lifetime, have you ever done anything, started to do anything, or prepared to do anything to end your life?" Patient responds "yes." Patient reports suicidal intent within 3 past months. Subjective: Patient's mood is flat. Objective: Patient is cooperative. Interventions: Removed personal items and placed in bag. Patient placed in hospital gown. Safety Checks: Personal items have been removed. Door is open. Visitors are present. Pt denies substance abuse. Commitment: Patient will be an involuntary commitment. Vital Signs: 07/02 00:14 BP 148 / 99; Pulse 75; Resp 18; Temp 98.2(TE); Pulse Ox 99% ; Weight 86.18 kg; Height 5 kl ft. 5 in. (165.10 cm); Pain 0/10; 06:30 BP 138 / 98; Pulse 79; Resp 18; Pulse Ox 98% on R/A; oe 12:30 BP 126 / 84; Pulse 82; Resp 18; Temp 97.3; Pulse Ox 99% ; Pain 0/10; ko1 07/03 01:59 BP 118 / 87; Pulse 65; Resp 14 S; Pulse Ox 94% on R/A; aa9 03:07 BP 102 / 82; Pulse 66; Resp 15 S; Pulse Ox 94% on R/A; aa9 04:08 BP 133 / 81; Pulse 55; Resp 16 S; Pulse Ox 100% on R/A; aa9 05:44 BP 133 / 85; Pulse 52; Resp 16 S; Pulse Ox 100% on R/A; aa9 13:53 BP 125 / 93; Pulse 89; Resp 16; Temp 98.1; Pulse Ox 96% on R/A; kr3 07/02 00:14 Body Mass Index 31.62 (86.18 kg, 165.10 cm) ED Course: 07/02 00:08 Patient arrived in ED. ja2 00:17 Triage completed. 00:23 Rainer Kerr PA is PHCP. [facility] 00:23 Ariana Allen MD is Attending Physician. [facility] 01:23 Patient has correct armband on for positive identification. SUICIDAL PT. ALL EQUIPMENT jj7 AND LINES REMOVED FROM ROOM. PT PLACES IN PAPER SCRUBS. SITTER OUTSIDE ROOM. 01:31 Acetaminophen Sent. jj7 01:31 Basic Metabolic Panel Sent. jj7 01:31 Salicylate Sent. jj7 01:31 Ptt, Activated Sent. jj7 01:31 PT-INR Sent. jj7 01:31 Hepatic Function Sent. jj7 01:31 ETOH Level Sent. jj7 01:31 CBC with Diff Sent. jj7 01:33 Urine Drug Screen Sent. jj7 01:33 SARS RAPID Sent. jj7 02:23 contacted [facility] Crisis spoke to Mouna to have a screener evaluate the patient. mw2 02:31 Inserted saline lock: 20 gauge in left antecubital area, using aseptic technique. jj7 03:05 CT Neck Angio In Process Unspecified. EDMS 03:53 patient on the phone with Jose from [facility]. mw2 04:27 Faxed patient information to all available psych facilities. mw2 06:29 nurse to nurse with Andrew from [facility]. mw2 06:36 nurse to nurse from [facility]. mw2 07:00 Sitter at bedside. ko1 07:30 Bed in low position. Call light in reach. Side rails up X 1. Seizure precautions ko1 initiated. Diet: finger foods. 08:03 Helen Balderas, PILLO is Primary Nurse. ko1 13:08 ED community service manager attempted to call [address] to receive updates on pt transfer status with negative contact. 14:00 Mental health deputy supervisor [employer] was called to obtain an emergency long term order on [facility] this pt. He stated that he is on his way, but effective immediately this pt is officially on detainment orders. 07/03 07:26 faxed patient chart to [facility] and [facility] in attempt to find eb placement. 07:39 Attending Physician role handed off by Ariana Allen MD kdr 07:39 Matthew Guthrie MD is Attending Physician. kdr 08:09 Daphne from [facility] called to see if we still needed placement on the patient/ eb they are reviewing the chart currently and will call us back. 08:16 role handed off by Marylin Ruiz RN eb 09:15 Notified ED physician of other need for daily meds for seizures that mom just dropped kr3 off. 11:12 Tatyana from the [facility] Crisis line called to check on patient transfer status/ eb informed her we are still waiting/ she will make some phone calls. 13:26 nurse to nurse with Daphne at [facility]. kr3 13:26 connected Daphne Rn from [facility] with Allie Albrecht Rn for patient transfer eb consultation. 13:[address] Miles the psychiatrist identification technician for [facility].eb 14:06 administrative approval given by Josef Boswell/ patient has been accepted to [facility]. 15:52 No provider procedures requiring assistance completed. IV discontinued, intact, kr3 bleeding controlled, No redness/swelling at site. Pressure dressing applied. Administered Medications: 07/02 01:17 Drug: Geodon (ziprasidone) 20 mg Route: IM; Site: right deltoid; 07/03 02:00 Follow up: Response: No adverse reaction aa9 00:05 Drug: Geodon (ziprasidone) 10 mg Route: IM; Site: left deltoid; as6 02:00 Follow up: Response: No adverse reaction aa9 02:39 Follow up: Response: RASS: Drowsy (-1) aa9 00:35 Drug: Ativan (LORazepam) 2 mg Route: IVP; Site: left antecubital; as6 02:00 Follow up: Response: No adverse reaction aa9 02:39 Follow up: Response: RASS: Drowsy (-1) aa9 09:29 Drug: Fycompa 8 mg Route: PO; kr3 09:29 Drug: busPIRone 7.5 mg Route: PO; kr3 09:29 Drug: levETIRAcetam 750 mg Route: PO; kr3 09:29 Drug: levETIRAcetam 750 mg Route: PO; kr3 09:29 Drug: Citalopram 20 mg Route: PO; kr3 Medication: 07/02 14:56 VIS not applicable for this client. ss Intake: 12:30 PO: 800ml (Water); Total: 800ml. ko1 18:49 PO: 250ml (Soft Drink); Total: 1050ml. ko1 Output: 12:30 Urine: 800ml; Total: 800ml. ko1 18:49 Urine: 400ml (Voided); Total: 1200ml. ko1 Outcome: 07:24 ER care complete, transfer ordered by . jr11 07/03 15:55 Transferred Note: To [facility] with MEntal health deputy ss Condition: good Instructed on the need for transfer, Demonstrated understanding of instructions. 15:55 Transferred Note: transferred by mental health deputy to [facility] kr3 15:55 Condition: unchanged 15:55 Instructed on the need for transfer. 15:56 Patient left the ED. ss Signatures: Dispatcher [employer] EDMS Terri Renteria, RN RN Matthew Dupree MD MD kdr Mickail, Joel, PA PA jmm Martinez, Eric em1 Shayna Huerta RN RN ss Yong Sauceda MyKena 2 Janey Mckinney Jessica ja2 Slawson, Ashby RN RN as6 Manny Castañeda MD MD jr11 Marylin Ruiz RN RN aa9 Jana De La Rosa RN RN kr3 Helen Balderas RN RN ko1 Yeyo Lopez RN RN jj7 Corrections: (The following items were deleted from the chart) 07/02 00:30 00:24 General: Appears jj7 jj7 16:48 10:19 Reassessment: Patient eating breakfast, nods to questions asked, will not ko1 verbally interact. ko1 07/03 01:45 00:00 General: pt active, restless, pt attempted to elope from ambulance bay. as6 aa9 01:45 00:30 General: pt stating "I just want to go home. I don't want to be here anymore" pt aa9 active in room. pt threw chair at staff . as6
--- NOTE | 2022-07-02 07:25 | EDPHYS ---
Physician Documentation [facility] Name: Shan Faye Age: 36 yrs Sex: Male : 1985 Arrival Date: 07/02/2022 Time: 00:08 Bed 15 Private MD: ED Physician Matthew Guthrie HPI: 07/02 00:27 This 36 yrs old Male presents to ER via Ambulatory with complaints of Suicidal jmm Ideation. 00:27 The patient presents to the emergency department with a history of a suicide gesture, jmm attempted hanging. Onset: The symptoms/episode began/occurred acutely, just prior to arrival. Past psychiatric history: the patient has had a prior suicide gesture, the patient has a previous inpatient psychiatric history. Associated signs and symptoms: Pertinent positives; suicide ideation. This is a 36 year old male with a history of epilepsy that presents to the ED with complaints of suicidal ideation. Mother found patient with rope wrapped around his neck, attempting to hang himself from a ceiling fan. . 00:27 Patient states he currently feels pressure and also admits to hearing voices telling jmm him to harm himself. . Historical: - Allergies: 00:17 Potato; kl - Home Meds: 15:55 Keppra 750 mg Oral tab 2 tabs 2 times per day [Active]; Fycompa 6 mg oral tab 1 tab ss nightly [Active]; buspirone 7.5 mg Oral tab 1 tab three times a day [Active]; "Has not taken psych medication in weeks" [Active]; - PMHx: 00:17 brain disorder; CVA; Seizure; kl - PSHx: 00:17 Cholecystectomy; kl - Immunization history:: Adult Immunizations up to date. - Social history:: Smoking status: Patient denies any tobacco usage or history of. ROS: 00:27 Constitutional: Negative for fever, chills, and weight loss, Cardiovascular: Negative jmm for chest pain, palpitations, and edema, Respiratory: Negative for shortness of breath, cough, wheezing, and pleuritic chest pain. 00:27 Psych: Positive for suicide gesture, suicidal ideation. 00:27 All other systems are negative. Exam: 00:27 Constitutional: This is a well developed, well nourished patient who is awake, alert, jmm and in no acute distress. Head/Face: atraumatic. Eyes: EOMI, no conjunctival erythema appreciated ENT: Moist Mucus Membranes Neck: Trachea midline, Supple Chest/axilla: Normal chest wall appearance and motion. Cardiovascular: Regular rate and rhythm. No edema appreciated Respiratory: Normal respirations, no respiratory distress appreciated Abdomen/GI: Non distended Back: Normal ROM Skin: General appearance color normal 00:27 Musculoskeletal/extremity: ROM: intact in all extremities. 00:27 Skin: Appearance: Color: normal in color. 00:27 Neuro: Orientation: is normal, Mentation: is normal, Memory: is normal. 00:27 Psych: Patient having thoughts of suicide. Vital Signs: 00:14 BP 148 / 99; Pulse 75; Resp 18; Temp 98.2(TE); Pulse Ox 99% ; Weight 86.18 kg; Height 5 kl ft. 5 in. (165.10 cm); Pain 0/10; 06:30 BP 138 / 98; Pulse 79; Resp 18; Pulse Ox 98% on R/A; oe 12:30 BP 126 / 84; Pulse 82; Resp 18; Temp 97.3; Pulse Ox 99% ; Pain 0/10; ko1 07/03 01:59 BP 118 / 87; Pulse 65; Resp 14 S; Pulse Ox 94% on R/A; aa9 03:07 BP 102 / 82; Pulse 66; Resp 15 S; Pulse Ox 94% on R/A; aa9 04:08 BP 133 / 81; Pulse 55; Resp 16 S; Pulse Ox 100% on R/A; aa9 05:44 BP 133 / 85; Pulse 52; Resp 16 S; Pulse Ox 100% on R/A; aa9 13:53 BP 125 / 93; Pulse 89; Resp 16; Temp 98.1; Pulse Ox 96% on R/A; kr3 07/02 00:14 Body Mass Index 31.62 (86.18 kg, 165.10 cm) kl MDM: 07/02 00:23 Patient medically screened. keith 01:00 Transition of care: After a detail discussion of the patient's case, care is keith transferred to Ariana Allen MD. 14:12 ED course: Mother stated she wanted to take the patient home. States the patient has keith never tried to hang himself but was not serious. Mental health deputy contacted. . 07/03 08:01 Data reviewed: vital signs, nurses notes. Counseling: I had a detailed discussion with kdr the patient and/or guardian regarding: the historical points, exam findings, and any diagnostic results supporting the discharge/admit diagnosis, lab results, radiology results, the need to transfer to another facility. ED course: The patient is resting comfortably in the ED. Staff reports that last evening he became belligerent and threw a chair. Subsequently nursing staff administered both Geodon and Ativan. Patient has been sleeping since then and without any further incident or exacerbation of his symptoms.. 07/02 00:24 Order name: Acetaminophen; Complete Time: 11:00 [facility] 07/02 00:24 Order name: Basic Metabolic Panel; Complete Time: :00 [facility] 07/02 00:24 Order name: CBC with Diff; Complete Time: :00 [facility] 07/02 00:24 Order name: ETOH Level; Complete Time: 11:00 [facility] 07/02 00:24 Order name: Hepatic Function; Complete Time: 11:00 [facility] 07/02 00:24 Order name: PT-INR; Complete Time: 11:00 [facility] 07/02 00:24 Order name: Ptt, Activated; Complete Time: :00 [facility] 07/02 00:24 Order name: Salicylate; Complete Time: 11:00 [facility] 07/02 00:24 Order name: Urine Drug Screen; Complete Time: 11:00 [facility] 07/02 00:24 Order name: CT Neck Angio; Complete Time: 18:28 [facility] 07/02 00:48 Order name: SARS RAPID; Complete Time: 11:00 [facility] 07/02 01:32 Order name: Urine Dipstick-Ancillary; Complete Time: 11:00 [facility] 07/02 00:24 Order name: EKG; Complete Time: 00:25 [facility] 07/02 00:24 Order name: EKG - Nurse/Tech; Complete Time: 00:52 [facility] 07/02 00:24 Order name: IV Saline Lock; Complete Time: 08:03 [facility] 07/02 00:24 Order name: Labs collected and sent; Complete Time: 01:30 [facility] 07/02 00:24 Order name: Suicide Screening ([place]); Complete Time: 01:30 [facility] 07/02 00:24 Order name: Urine Dipstick-Ancillary (obtain specimen); Complete Time: 01:31 jmm 07/02 08:43 Order name: Diet Finger Food; Complete Time: 08:43 em1 07/02 12:40 Order name: Diet Regular: psych patient; Complete Time: 12:41 ko1 07/03 07:17 Order name: Diet Finger Food; Complete Time: 07:18 dh3 Administered Medications: 07/02 01:17 Drug: Geodon (ziprasidone) 20 mg Route: IM; Site: right deltoid; 07/03 02:00 Follow up: Response: No adverse reaction aa9 00:05 Drug: Geodon (ziprasidone) 10 mg Route: IM; Site: left deltoid; as6 02:00 Follow up: Response: No adverse reaction aa9 02:39 Follow up: Response: RASS: Drowsy (-1) aa9 00:35 Drug: Ativan (LORazepam) 2 mg Route: IVP; Site: left antecubital; as6 02:00 Follow up: Response: No adverse reaction aa9 02:39 Follow up: Response: RASS: Drowsy (-1) aa9 09:29 Drug: Fycompa 8 mg Route: PO; kr3 09:29 Drug: busPIRone 7.5 mg Route: PO; kr3 09:29 Drug: levETIRAcetam 750 mg Route: PO; kr3 09:29 Drug: levETIRAcetam 750 mg Route: PO; kr3 09:29 Drug: Citalopram 20 mg Route: PO; kr3 Disposition: 08:01 Co-signature as Attending Physician, Matthew Guthrie MD I agree with the assessment and kdr plan of care. Disposition Summary: 07/02/22 07:24 Transfer Ordered Transfer Location: Psych Facility jr11 Reason: Higher level of care jr11 Condition: Fair jr11 Problem: new jr11 Symptoms: are unchanged jr11 Accepting Physician: Psych (07/03/22 15:56) Diagnosis - Suicidal ideations jr11 Forms: - Medication Reconciliation Form jr11 - SBAR form jr11 Signatures: Dispatcher [employer] Terri Redmond RN RN kl Rittger, Kevin, MD MD kdr Mickail, Joel, PA PA jmm Smirch, Shelby, RN RN ss Slawson, Ashby, RN RN as6 Manny Castañeda MD MD jr11 Jana De La Rosa RN RN kr3 Marylin Ruiz RN aa9 Corrections: (The following items were deleted from the chart) 15:56 07/02 07:24 Psych jr11 ss
--- NOTE | 2022-07-02 08:27 | EKG ---
Test Date: 2022-07-02 Test Time: 00:43:27 Music Mixer: BERENICE MEASUREMENT RESULTS: Intervals: Rate: 99 WI: 144 QRSD: 90 QT: 350 QTc: 449 [place]: P: 34 WI: 144 QRS: 10 T: 27 INTERPRETIVE STATEMENTS: Normal sinus rhythm Normal ECG Compared to ECG 06/23/2022 09:30:49 No significant changes Electronically Signed On 07-02-22 08:26:31 CDT by Joseph Harris
--- NOTE | 2022-07-02 14:07 | RAD REPORT ---
EXAM DESCRIPTION: CT - Neck Angio - 07/02/2022 3:03 am CLINICAL HISTORY: 36 years, Male, hanging, suicide attempt COMPARISON: None. TECHNIQUE: Multiple transaxial tomograms from the aortic arch through the brain were performed after administration of large bolus of IV contrast for complete opacification of the carotid arteries and intracranial vessels. Subsequent 2-D and 3-D multiplanar reformats, volume rendering technique and maximum intensity projec tion images were generated and reviewed. Stenosis measurements were performed according to NASCET cri teria. This exam was performed according to our departmental dose-optimization protocol, which includes auto mated exposure control, adjustment of the mA and/or kV according to patient size and/or use of iterat abbey reconstruction technique. FINDINGS: Ascending aorta: There is a normal branching pattern of the great vessels off the arch. There are codominant vertebral arteries which demonstrate normal opacification, there is slight lef t vertebral artery dominance. No great vessel origin stenosis is identified. Right carotid artery: Normal opacification is demonstrated within the right common carotid artery a nd at the carotid bifurcation. The right carotid bulb demonstrate to be within normal limits. There i s no evidence for significant stenosis. The proximal, mid and distal portions of the right internal c arotid artery demonstrate to be patent. There is no evidence for significant stenosis and/or occlusio n. There is normal opacification within the proximal aspect anterior circulation of the visualized vesse ls without evidence significant abnormalities. Left carotid artery: Normal opacification is demonstrated within the left common carotid artery an d at the carotid bifurcation. The left carotid bulb demonstrate to be within normal limits. There is no evidence for significant stenosis. The proximal, mid and distal portions of the left internal gamez tid artery demonstrate to be patent. There is no evidence for significant stenosis and/or occlusion. Vertebrobasilar system: The posterior circulation demonstrate codominant bilateral vertebral arteries with no evidence for significant stenosis and/or evidence for significant dissection. The proximal a spect of the vertebrobasilar system and HEPATOLOGY PHYSICIAN demonstrate to be normal with no evidence for aneurysm an d/or occlusion. Grossly the brain parenchyma demonstrate normal astorga-white matter differentiation with no evidence fo r mass effect and/or midline shift. The skull base and intracranial structures demonstrate to be within normal limits. Lung apex: No gross abnormalities are noted within the apices. IMPRESSION: No evidence for significant stenosis and/or occlusion involving the cervical carotid or vertebral arteries. Electronically signed by: Markie Pizarro MD 07/02/2022 3:28 AM CDT Due to temporary technical issues with the PACS/Fluency reporting system, reports are being signed by the in house radiologists without review as a courtesy to insure prompt reporting. The interpreting radiologist is fully responsible for the content of the report.
[2022-07-03] MEDS ORDERED: LORazepam 2 MG/ML VIAL ONE (00:26)
[2022-07-04 04:20] VITALS: BP 125/93; TEMP 98.1; O2SAT 96
== END 2022-07-03 15:56 ==
LOC: ER 00:07
DX: R45.851 Suicidal ideations (principal); Z20.822 Contact with and (suspected) exposure to COVID-19; Z86.73 Personal history of transient ischemic attack (TIA), and cerebral infarction without residual deficits; G40.909 Epilepsy, unspecified, not intractable, without status epilepticus; Z91.018 Allergy to other foods
CPT/HCPCS: 93005; 85025; 80048; 36415; 80320; 80329 ×2; 85610; 80076; 85730; 81003; 80307; 70498; 96372; 96374; 99285; 87811; Q9967; J3486 ×2

== ENCOUNTER 2022-08-01 14:04 | Emergency (ER) | payer OTHER ==
--- OUTSIDE RECORDS SUMMARY | 2022-08-01 14:07 | XMS REPORT | Continuity of Care Document ---
:1985 Author Organization Formerly [facility] t Address [address] [place] [address] Care Team Providers Name Role Phone Jethro Allen Attending Clinician Unavailable Payers Payer Name Policy Type Policy Number Effective Date Expiration Date Elver yanes [place] [id number] 2015 [employer] 00:00:00 [facility] Problems Condition Condition Condition Status Onset Resolution Last Treating Co mments Source Name Details Category Date Date Treatment Clinician Date SEIZURES SEIZURES Diagnosis Active 2011-102012-08-20 Memoria Active 10-20 17:32:00 l 08/20/2012 00:00: Jake denise [address] [id number] Type 2 Problem Active Common diabetes [facility] mellitus - [facility] with [facility] [id number] IRENE Problem Active Common (generaliz Spirit ed anxiety - [facility] disorder) [facility] [id number] Current Problem Active Common moderate Spirit episode of - [facility] major [facility] Center prior episode [id number] Bipolar Problem Active Commo n affective Spirit disorder, - [facility] currently [facility] [id number] [employer] 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 Social History Social Habit Start Date Stop Date Quantity Comments Source History of Tobacco Use Co mmon [facility] - [facility] Sex Assigned At Com mon [facility] - [facility] Smoking Status Start Date Stop Date Source Never Smoker Common [facility] Medications Ordered Filled Start Stop Current Ordering Indication Dosage Frequency Signature Comments Components Source Medication Medication Date Date Medication? Clinician [facility] Yes Tatyana 750 mg, 3 Mem oria 250 mg oral 1-18 Jessica tab, PO, l enteric 05:41: Jose David BID, 100 H ermann coated 33 tab, tablet Substituti on Allowed, ECTAB Depakote 2011-10 Yes Tatyana 750 mg, 3 Mem oria 250 mg oral 18 Jessica tab, PO, l enteric 05:37: Jose David TID, 60 He rmann coated 34 tab, tablet Substituti on Allowed, ECTAB Depacon + 2011-10 No Terri A 500 mg, 5 Memoria Sodium 18 Chambers mL, Route: l Chloride 03:49: IVPB, Chase 0.9% IV 50 00 ONCE, mL Start date: 08/20/12 21:49:00, Stop date: 08/20/12 21:49:00 Depakote 2011-10 No Tatyana 500 mg, Memor ia 18 Jessica Route: IV, l 03:17: Jose David ONCE, Industry 00 Dosing Weight 72.727, kg, Start date: 08/20/12 21:17:00, Stop date: 08/20/12 21:17:00 Depakote ER 2011-10 Yes 500 mg, 1 M emoria 500 mg oral 1-17 tab, PO, l tablet, 22:02: BID, 30 Chase extended 13 tab, release Substituti on Allowed, ERTAB BusPIRone BusPIRone No 1{table TID BusPIRone HCl 5 MG HCl 5 MG t} HCl 5 MG Vitamin C Vitamin C No Vitamin C Levofloxaci Levofloxaci No 1{table QD Levofloxac n 500 MG n 500 MG t} in 500 MG Keppra Keppra No Keppra Latuda 20 Latuda 20 No 1{table QD Latuda 20 MG MG t} MG PredniSONE PredniSONE No 1{table QID PredniSONE 20 MG 20 MG t} 20 MG Citalopram Citalopram No 1{table QD Citalopram Hydrobromid Hydrobromid t} Hydrobromi e 20 MG e 20 MG de 20 MG Fycompa 10 Fycompa 10 No BID Fycompa 10 Common MG MG MG [facility] BusPIRone BusPIRone No 1{table TID BusPIRone Common HCl 5 MG HCl 5 MG t} HCl 5 MG Spi rit [facility] Lantus 100 Lantus 100 No BID Lantus 100 Common UNIT/ML UNIT/ML UNIT/ML [facility] Citalopram Citalopram No 1{table QD Citalopram Common Hydrobromid Hydrobromid t} Hydrobromi Spirit e 20 MG e 20 MG de 20 MG [facility] Latuda 20 Latuda 20 No 1{table QD Latuda 20 Common MG MG t} MG [facility] Keppra Keppra No Keppra Common [facility] Fycompa 10 Fycompa 10 No BID Fycompa 10 MG MG MG Lantus 100 Lantus 100 No BID Lantus 100 UNIT/ML UNIT/ML UNIT/ML Eliquis 5 Eliquis 5 No 1{table BID Eliquis 5 MG MG t} MG Vital Signs Vital Name Observation Time Observation Value Comments Source height 2020-10-15 10:20:00 65 [in_i] [facility] weight 2020-10-15 10:20:00 180 [lb_av] [facility] temperature 2020-10-15 10:20:00 98.7 [degF] [facility] bmi 2020-10-15 10:20:00 29.95 kg/m2 [facility] blood pressure 2020-10-15 10:20:00 131 mm[Hg] [facility] - systolic [facility] blood pressure 2020-10-15 10:20:00 74 mm[Hg] [facility] - diastolic [facility] Weight 2012-08-20 21:07:00 [facility] Height 2012-08-20 21:07:00 165.10 cm [facility] Procedures This patient has no known procedures. Encounters Start End Encounter Admission Attending Care Care Encounter Source Date/Time Date/Time Type Type Clinicians Facility Department ID 2022-07-[address] [facility] [id number] [place] 04:48:12 [id number] Health 2021-10-29 Outpatient Allen, STLMLC STLMLC [id number] Common 12:21:25 Jethro [id number] [facility] 2021-10-29 Outpatient Allen, STLMLC STLMLC [id number] Common 12:19:51 [facility] [id number] [facility] 2021-10-29 Outpatient Allen, STLMLC STLMLC [id number] Common 12:16:00 [facility] [address] [facility] 2020-10-15 2020-10-15 OFFICE STLMLC STLMLC [id number] Co mmon 00:00:00 00:00:00 VISIT [facility] it PT LEVEL 3 [facility] 2020-09-25 2020-09-25 (TEL) STLMLC STLMLC [id number] Co mmon 00:00:00 00:00:00 [facility] 2012-08-20 2012-08-20 Emergency nullFlavo [facility] [id number] Memoria 15:06:00 23:52:[address] Results Test Description Test Time Test Comments Results Result Comments Source CHEMISTRY 2012-08-20 22:46:00 Test Item Value Reference Range Interpretation Comme nts Valproic Acid Lvl (test code = Valproic Acid Lvl) 128 50-1 00 [facility]6726-87-71 22:42:00 Test Item Value Reference Range Interpretation Comments BUN (test code = BUN) 13 7-22 N [facility] CenterCiinmzcOTCBPOHVS3286-69-15 22:42:00 Test Item Value Reference Range Interpretation Comments Glucose Lvl (test code = Glucose Lvl) 83 70-99 N [facility]TaumbyqNRKWJLWOF7916-15-02 22:42:00 Test Item Value Reference Range Interpretation Comments Calcium Lvl (test code = Calcium Lvl) 9.3 8.5-10.5 N [facility] CenterPxvvsduHKSTMZGEG3901-45-31 22:42:00 Test Item Value Reference Range Interpretation Comments CO2 (test code = CO2) 31 24-32 N [facility] CenterLpdkgvyPLJYUJPDU1265-66-49 22:42:00 Test Item Value Reference Range Interpretation Comments AGAP (test code = AGAP) 11.0 10.0-20.0 N [facility] HospitalCtksstpVHHTKSSMW0662-83-89 22:42:00 Test Item Value Reference Range Interpretation Comments eGFR (test code = eGFR) 131 [facility]VgaeikmLXXWCKSDI8206-40-38 22:42:00 Test Item Value Reference Range Interpretation Comments Sodium Lvl (test code = Sodium Lvl) 140 135-145 N [facility] HospitalBwqnxfxYIESFDMHY8387-99-12 22:42:00 Test Item Value Reference Range Interpretation Comments Creatinine Lvl (test code = Creatinine 0.7 0.5-1.4 N Lvl) [facility] HospitalNprlxfcASNKPEQJD4942-55-27 22:42:00 Test Item Value Reference Range Interpretation Comments Potassium Lvl (test code = Potassium 5.0 3.5-5.1 N Lvl) [facility] HospitalOkvhnnjGROQNBXLA5038-25-13 22:42:00 Test Item Value Reference Range Interpretation Comments Chloride Lvl (test code = Chloride Lvl) 103 95-109 N [facility] HospitalNfzfmhnYGVJWHRGS1920-80-47 22:42:00 Test Item Value Reference Range Interpretation Comments Phosphorus (test code = Phosphorus) 4.7 2.5-4.5 H [facility] HospitalKhfuukjVJABCBEAN1546-94-17 22:42:00 Test Item Value Reference Range Interpretation Comments Magnesium Lvl (test code = Magnesium 1.8 1.8-2.4 N Lvl) [facility] Cent[id number] 22:42:00 Test Item Value Reference Range Interpretation Comments Basophils # (test code 0.1 See_Comment N [Aut omated message] The = Basophils #) system which generated this result tra nsmitted reference range : <=0.2. The reference r terri was not used to int erpret this result as normal/abnormal . [facility] CenterZfkircvPGPXKFHQMQ6374-61-86 22:42:00 Test Item Value Reference Range Interpretation Comments Lymphocytes # (test code = Lymphocytes 2.5 1.0-5.5 N #) [facility] CenterAqqdvwpOMWVBIILFK3680-77-88 22:42:00 Test Item Value Reference Range Interpretation Comments Basophils (test code = 0.7 See_Comment N [Aut omated message] The Basophils) system which ge nerated this result tra nsmitted reference range : <=1.0. The reference r terri was not used to int erpret this result as normal/abnormal . [facility] CenterNjhthshNOTTASQRRD4729-94-24 22:42:00 Test Item Value Reference Range Interpretation Comments Monocytes # (test code 0.4 See_Comment N [Aut omated message] The = Monocytes #) system which generated this result tra nsmitted reference range : <=0.8. The reference r terri was not used to int erpret this result as normal/abnormal . [facility] CenterDrbbgphVRPVGXKEOJ1948-09-85 22:42:00 Test Item Value Reference Range Interpretation Comments Segs-Bands # (test code = Segs-Bands #) 4.9 1.5-8.[address] [facility] CenterAxrpyoxZLDMFYTXMX1586-15-21 22:42:00 Test Item Value Reference Range Interpretation Comments Eosinophils (test code = 1.0 See_Comment N [A utomated message] The Eosinophils) system which ge nerated this result tra nsmitted reference range : <=4.0. The reference r terri was not used to int erpret this result as normal/abnormal . [facility] CenterLzwvnhdCQOWXYIBLD7577-04-97 22:42:00 Test Item Value Reference Range Interpretation Comments Eosinophils # (test code 0.1 See_Comment N [A utomated message] The = Eosinophils #) system whic h generated this result tra nsmitted reference range : <=0.5. The reference r terri was not used to int erpret this result as normal/abnormal . [facility] CenterRfqptedYUGFXLVVZQ0766-91-55 22:42:00 Test Item Value Reference Range Interpretation Comments Monocytes (test code = Monocytes) 5.0 2.0-12.[address] [facility] CenterSiwwmraFLJCBIIRJO2459-57-49 22:42:00 Test Item Value Reference Range Interpretation Comments Lymphocytes (test code = Lymphocytes) 31.3 20.0-40.[address] [facility] CenterHzumuieOTDCTIOHTP5960-19-40 22:42:00 Test Item Value Reference Range Interpretation Comments Segs (test code = Segs) 62.0 45.0-75.[address] [facility] CenterTjkzjggNTBIDEVJNP9701-92-36 22:42:00 Test Item Value Reference Range Interpretation Comments MPV (test code = MPV) 9.0 7.4-10.[address] [facility] CenterGwealrqAMZCKTNRXG9764-81-54 22:42:00 Test Item Value Reference Range Interpretation Comments MCH (test code = MCH) 30.3 pg 27.0-31.[address] [facility] CenterG[id number] 22:42:00 Test Item Value Reference Range Interpretation Comments MCHC (test code = MCHC) 33.5 32.0-36.[address] [facility] CenterBzrnrkvSYGFMORYLC9051-88-61 22:42:00 Test Item Value Reference Range Interpretation Comments Platelet (test code = Platelet) 204 133-[address] [facility] CenterYrvswzrDLDXVNRLMU5438-23-93 22:42:00 Test Item Value Reference Range Interpretation Comments RDW (test code = RDW) 12.0 11.5-14.[address] [facility] CenterHvugrftVCUMBSKPBA4339-26-49 22:42:00 Test Item Value Reference Range Interpretation Comments RBC (test code = RBC) 4.38 4.70-6.[address] [facility] CenterBjdrmwaTECTEIIDQK1926-13-27 22:42:00 Test Item Value Reference Range Interpretation Comments WBC (test code = WBC) 8.0 3.7-10.[address] [facility] CenterVcduevaLGHOOHIKHN8536-48-17 22:42:00 Test Item Value Reference Range Interpretation Comments MCV (test code = MCV) 90.5 80.0-94.[address] [facility] CenterYuwfqrkDBSCKWQFLK8362-94-85 22:42:00 Test Item Value Reference Range Interpretation Comments Hgb (test code = Hgb) 13.3 14.0-18.[address] [facility] CenterEuzqmxsHIHIBJWKSX0294-34-64 22:42:00 Test Item Value Reference Range Interpretation Comments Hct (test code = Hct) 39.7 42.0-54.[address] [facility] GLUCOSE [id number] 21:59:00 Test Item Value Reference Range Interpretation Comments Gluc POC Lifscn (test code = Gluc POC 86 70-99 N Lifscn) [facility]
[2022-08-01 14:39] LABS: Absolute Lymphocytes (CBC) 2.1 K/uL (0.7-4.9); Hematocrit 41.7 % (39.6-49.0); Lymphocytes % 37.2 % (15.3-44.8); MCV 84.9 fL (80-100); MPV 8.4 fL (7.6-11.3); RBC Red Blood Cell Count 4.91 M/uL (4.33-5.43)
[2022-08-01 14:57] LABS: Bilirubin Total 0.6 mg/dL (0.2-1.0); Potassium 3.5 mmol/L (3.5-5.1); Protein, Total 7.2 g/dL (6.4-8.2)
--- NOTE | 2022-08-01 15:09 | EDPHYS ---
Physician Documentation [facility] Name: Shan Faye Age: 36 yrs Sex: Male : 1985 Arrival Date: 08/01/2022 Time: 14:05 Bed 5 Private MD: ED Physician Matthew Guthrie HPI: 08/01 15:32 This 36 yrs old Male presents to ER via EMS with complaints of Possible kdr seizure. 15:32 The patient had been in his usual state of health and was at work when he may have had kdr a brief seizure. Exact time or length is unknown. Patient was mother states that his coworkers noted that he was not doing well apparently and prior to him harming himself they are able to lie him down and put him on the floor. He denies any injury at this time he is back to baseline at this time. He has no other local or focal complaints. He states that he does not have a headache or any other injury or pain at this time.. Onset: The symptoms/episode began/occurred gradually, just prior to arrival. Severity of symptoms: At their worst the symptoms were incapacitating in the emergency department the symptoms have resolved. The patient has experienced similar episodes in the past, multiple times. The patient has not recently seen a physician, Patient sees Dr. Arreola and is scheduled to see him or attempting to get a schedule see him in the near future. Historical: - Allergies: 14:05 Potato; ll1 - PMHx: 14:05 brain disorder; CVA; Seizure; ll1 - PSHx: 14:05 Cholecystectomy; ll1 - Immunization history:: Client reports receiving the 2nd dose of the Covid vaccine. - Social history:: Smoking status: Patient denies any tobacco usage or history of. ROS: 15:32 Constitutional: Negative for fever, chills, and weight loss, Eyes: Negative for injury, kdr pain, redness, and discharge, ENT: Negative for injury, pain, and discharge, Neck: Negative for injury, pain, and swelling, Cardiovascular: Negative for chest pain, palpitations, and edema, Respiratory: Negative for shortness of breath, cough, wheezing, and pleuritic chest pain, Abdomen/GI: Negative for abdominal pain, nausea, vomiting, diarrhea, and constipation, Back: Negative for injury and pain, : Negative for injury, bleeding, discharge, and swelling, MS/Extremity: Negative for injury and deformity, Skin: Negative for injury, rash, and discoloration, Psych: Negative for depression, anxiety, suicide ideation, homicidal ideation, and hallucinations, Allergy/Immunology: Negative for hives, rash, and allergies, Endocrine: Negative for neck swelling, polydipsia, polyuria, polyphagia, and marked weight changes, Hematologic/Lymphatic: Negative for swollen nodes, abnormal bleeding, and unusual bruising. 15:32 Neuro: Positive for seizure activity, Negative for altered mental status, dizziness, gait disturbance, headache, hearing loss, loss of consciousness, numbness, speech changes, syncope, near syncope, tingling, tinnitus, tremor, visual changes, weakness, acute changes. Exam: 15:32 Constitutional: This is a well developed, well nourished patient who is awake, alert, kdr and in no acute distress. Head/Face: Normocephalic, atraumatic. Eyes: Pupils equal round and reactive to light, extra-ocular motions intact. Lids and lashes normal. Conjunctiva and sclera are non-icteric and not injected. Cornea within normal limits. Periorbital areas with no swelling, redness, or edema. Neck: Trachea midline, no thyromegaly or masses palpated, and no cervical lymphadenopathy. Supple, full range of motion without nuchal rigidity, or vertebral point tenderness. No Meningismus. Chest/axilla: Normal chest wall appearance and motion. Nontender with no deformity. No lesions are appreciated. Cardiovascular: Regular rate and rhythm with a normal S1 and S2. No gallops, murmurs, or rubs. Normal PMI, no JVD. No pulse deficits. Respiratory: Lungs have equal breath sounds bilaterally, clear to auscultation and percussion. No rales, rhonchi or wheezes noted. No increased work of breathing, no retractions or nasal flaring. Abdomen/GI: Soft, non-tender, with normal bowel sounds. No distension or tympany. No guarding or rebound. No evidence of tenderness throughout. Back: No spinal tenderness. No costovertebral tenderness. Full range of motion. Skin: Warm, dry with normal turgor. Normal color with no rashes, no lesions, and no evidence of cellulitis. MS/ Extremity: Pulses equal, no cyanosis. Neurovascular intact. Full, normal range of motion. Neuro: Awake and alert, GCS 15, oriented to person, place, time, and situation. Cranial nerves II-XII grossly intact. Motor strength 5/5 in all extremities. Sensory grossly intact. Cerebellar exam normal. Normal gait. Psych: Awake, alert, with orientation to person, place and time. Behavior, mood, and affect are within normal limits. Vital Signs: 14:12 BP 129 / 91; Pulse 68; Resp 16; Temp 98.4; Pulse Ox 95% on R/A; Weight 87.54 kg; Height ll1 5 ft. 5 in. (165.10 cm); Pain 0/10; 14:41 BP 132 / 88; Pulse 66; Resp 17; Pulse Ox 94% on R/A; ll1 15:30 BP 128 / 90; Pulse 63; Resp 17; Pulse Ox 99% on R/A; ll1 14:12 Body Mass Index 32.12 (87.54 kg, 165.10 cm) ll1 MDM: 15:08 Patient medically screened. kdr 15:32 Data reviewed: vital signs, lab test result(s). Counseling: I had a detailed discussion kdr with the patient and/or guardian regarding: the historical points, exam findings, and any diagnostic results supporting the discharge/admit diagnosis, lab results, radiology results. 15:35 ED course: Patient remained stable in the ED overnight without any suggestion or hint kdr of any ongoing seizure activity. Patient denied any further interested in being evaluated or having laboratory test drawn. Patient denied any head injury and denied refused a CT head. Patient was consistent with his baseline during his stay in the ED his mother was here with him at the time had no other concerns either. Patient was discharged in stable condition happy with the care provided and the plan for discharge and follow-up. 08/01 14:21 Order name: CBC with Diff; Complete Time: 15:03 kdr 08/01 14: Order name: Comprehensive Metabolic Panel; Complete Time: 15:03 kdr Administered Medications: No medications were administered Disposition Summary: 08/01/22 15:08 Discharge Ordered Location: Home kdr Problem: an acute exacerbation kdr Symptoms: are resolved kdr Condition: Stable kdr Diagnosis - Other seizures - Breakthrough kdr Followup: kdr - With: Private Physician - When: 2 - 3 days - Reason: If symptoms return, Further diagnostic work-up, Recheck today's complaints, Continuance of care, Re-evaluation by your physician Discharge Instructions: - Discharge Summary Sheet kdr - Seizure, Adult, Iqqw-mj-Kaxb kdr Forms: - Medication Reconciliation Form kdr - Thank You Letter kdr - Work release form [id number] Signatures: Dispatcher [employer] Matthew Shepard MD MD kdr Brandee Renteria RN RN ll1
--- NOTE | 2022-08-01 15:09 | ER ---
Nurse's Notes [facility] Name: Shan Faye Age: 36 yrs Sex: Male : 1985 Arrival Date: 08/01/2022 Time: 14:05 Bed 5 Private MD: Diagnosis: Other seizures-Breakthrough Presentation: 08/01 14:06 Chief complaint: Patient states: "I think it was just anxiety". History of focal ll1 seizures. No fall or injury. Taking Keppra as prescribed. EMS states: VSS. Fingerstick 101. 20 G R AC. 14:06 Coronavirus screen: Vaccine status: Patient reports receiving the 2nd dose of the covid ll1 vaccine. Client denies travel out of the [place] in the last 14 days. At this time, the client does not indicate any symptoms associated with coronavirus-19. Ebola Screen: Patient denies travel to an Ebola-affected area in the 21 days before illness onset. Initial Sepsis Screen: Does the patient meet any 2 criteria? No. Patient's initial sepsis screen is negative. Does the patient have a suspected source of infection? No. Patient's initial sepsis screen is negative. Risk Assessment: Do you want to hurt yourself or someone else? Patient reports no desire to harm self or others. Onset of symptoms was August 01, 2022. 14:06 Method Of Arrival: EMS ll1 14:06 Acuity: PAULINE 3 ll1 Triage Assessment: 14:05 General: Appears in no apparent distress. Behavior is calm, cooperative, appropriate ll1 for age. Pain: Denies pain. 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 Historical: - Allergies: 14:05 Potato; ll1 - PMHx: 14:05 brain disorder; CVA; Seizure; ll1 - PSHx: 14:05 Cholecystectomy; ll1 - Immunization history:: Client reports receiving the 2nd dose of the Covid vaccine. - Social history:: Smoking status: Patient denies any tobacco usage or history of. Screenin:13 Abuse screen: Denies threats or abuse. Nutritional screening: No deficits noted. ll1 Tuberculosis screening: No symptoms or risk factors identified. Fall Risk IV access (20 points). Total English Fall Scale indicates No Risk (0-24 pts). Assessment: 14:13 Reassessment: No changes from previously documented assessment. Patient and/or family ll1 updated on plan of care and expected duration. Pain level reassessed. 14:41 Reassessment: No changes from previously documented assessment. Patient and/or family ll1 updated on plan of care and expected duration. Pain level reassessed. Patient is alert, oriented x 3, equal unlabored respirations, skin warm/dry/pink. 15:31 Reassessment: No changes from previously documented assessment. Patient and/or family ll1 updated on plan of care and expected duration. Pain level reassessed. Vital Signs: 14:12 BP 129 / 91; Pulse 68; Resp 16; Temp 98.4; Pulse Ox 95% on R/A; Weight 87.54 kg; Height ll1 5 ft. 5 in. (165.10 cm); Pain 0/10; 14:41 BP 132 / 88; Pulse 66; Resp 17; Pulse Ox 94% on R/A; ll1 15:30 BP 128 / 90; Pulse 63; Resp 17; Pulse Ox 99% on R/A; ll1 14:12 Body Mass Index 32.12 (87.54 kg, 165.10 cm) ll1 ED Course: 14:05 Patient arrived in ED. eb 14:05 Brandee Renteria, PILLO is Primary Nurse. ll1 14:05 Arm band placed on Patient placed in an exam room, on a stretcher. ll1 14:06 Matthew Guthrie MD is Attending Physician. kdr 14:07 Triage completed. ll1 14:13 Patient has correct armband on for positive identification. Bed in low position. Side ll1 rails up X2. Seizure precautions initiated. Client placed on continuous cardiac and pulse oximetry monitoring. NIBP monitoring applied. 14:26 Maintain EMS IV. Dressing intact. Good blood return noted. Site clean \\T\\ dry. Gauge \\T\\ ll 1 site: 20 G R AC. 14:32 Comprehensive Metabolic Panel Sent. zm 14:32 CBC with Diff Sent. zm 15:31 No provider procedures requiring assistance completed. IV discontinued, intact, ll1 bleeding controlled, No redness/swelling at site. Pressure dressing applied. Administered Medications: No medications were administered Medication: 14:13 VIS not applicable for this client. ll1 Outcome: 15:08 Discharge ordered by . kdr 15:31 Discharged to home ambulatory. ll1 15:31 Condition: stable 15:31 Discharge instructions given to patient, Instructed on discharge instructions, follow up and referral plans. Demonstrated understanding of instructions, follow-up care. 15:31 Patient left the ED. ll1 Signatures: Matthew Guthrie MD MD kdr Botello, Elizabeth eb Lewis, Lynsay, RN RN ll1 Cinda Mckinley Corrections: (The following items were deleted from the chart) 14:12 14:06 Chief complaint: Patient states: Focal seizure at work. No fall or injury. EMS ll1 states: VSS. Fingerstick 101. 20 G R AC ll1
[2022-08-01 15:36] VITALS: TEMP 98.4
[2022-08-01 15:39] VITALS: BP 128/90; O2SAT 99
== END 2022-08-01 15:31 | disposition home or self-care (01) ==
LOC: ER 14:04
DX: G40.89 Other seizures (principal); Z91.018 Allergy to other foods
CPT/HCPCS: 36415; 80053; 85025; 99283

== ENCOUNTER 2022-10-09 21:59 | Emergency (ER) | payer OTHER ==
--- OUTSIDE RECORDS SUMMARY | 2022-10-09 22:04 | XMS REPORT | Continuity of Care Document ---
:1985 Author Organization [facility] t Address [address] [place] [address] Care Team Providers Name Role Phone Jethro Allen Attending Clinician Unavailable Payers Payer Name Policy Type Policy Number Effective Date Expiration Date Elver yanes [place] [id number] 2015 Common [employer] 00:00:00 [facility] - [facility] Problems Condition Condition Condition Status Onset Resolution Last Treating Co mments Source Name Details Category Date Date Treatment Clinician Date SEIZURES SEIZURES Diagnosis Active 2011-102012-08-20 Memoria Active 10-20 17:32:00 l 08/20/2012 00:00: Jake denise [address] [id number] shelter Problem Active Com mon (current) Spirit use of - [facility] insulin [facility] [id number] Type 2 Problem Active Common diabetes Spirit mellitus - [facility] with [facility] [id number] IRENE Problem Active Common (generaliz Spirit ed anxiety - [facility] disorder) [facility] [id number] Current Problem Active Common moderate Spirit episode of - [facility] major depressive [facility] prior episode [id number] Bipolar Problem Active Commo n affective Spirit disorder, - [facility] currently [facility] Allergies, Adverse Reactions, Alerts This patient has no known allergies or adverse reactions. Social History Social Habit Start Date Stop Date Quantity Comments Source History of Tobacco Use Co mmon [facility] - [facility] Sex Assigned At Com mon [facility] - [facility] Smoking Status Start Date Stop Date Source Never Smoker Common [facility] Medications Ordered Filled Start Stop Current Ordering Indication Dosage Frequency Signature Comments Components Source Medication Medication Date Date Medication? Clinician (SIG) Name Name Depakote 2011-10 Yes Tatyana 750 mg, 3 [...] oral 1-18 Jessica tab, PO, l enteric 05:37: Jose David TID, 60 He rmann coated 34 tab, tablet Substituti on Allowed, ECTAB Depakote 2011-10 Yes Tatyana 750 mg, 3 Mem oria 250 mg oral 1-18 Jessica tab, PO, l enteric 05:37: Jose David TID, 60 He rmann coated 34 tab, tablet Substituti on Allowed, ECTAB Depakote 2011-10 Yes Tatyana 750 mg, 3 Mem oria 250 mg oral 1-18 Jessica tab, PO, l enteric 05:37: Jose David TID, 60 He rmann coated 34 tab, tablet Substituti on Allowed, ECTAB Depacon + 2011-10 No Terri A 500 mg, 5 Memoria Sodium 1-18 Chambers mL, Route: l Chloride 03:49: IVPB, Radisson 0.9% IV 50 00 ONCE, mL Start date: 08/20/12 21:49:00, Stop date: 08/20/12 21:49:00 Depacon + 2011-10 No Terri A 500 mg, 5 Memoria Sodium 1-18 Chambers mL, Route: l Chloride 03:49: IVPB, Chase 0.9% IV 50 00 ONCE, mL Start date: 08/20/12 21:49:00, Stop date: 08/20/12 21:49:00 Depacon + 2011-10 No Terri A 500 mg, 5 Memoria Sodium 1-18 Chambers mL, Route: l Chloride 03:49: IVPB, [place] 0.9% IV 50 00 ONCE, mL Start date: 08/20/12 21:49:00, Stop date: 08/20/12 21:49:00 Depakote 2011-10 No Tatyana 500 mg, Memor ia 18 Jessica Route: IV, l 03:17: Jose David ONCE, Radisson 00 Dosing Weight 72.727, kg, Start date: 08/20/12 21:17:00, Stop date: 08/20/12 21:17:00 Depakote 2011-10 No Tatyana 500 mg, Memor ia 18 Jessica Route: IV, l 03:17: Jose David ONCE, Dosing Weight 72.727, kg, Start date: 08/20/12 21:17:00, Stop date: 08/20/12 21:17:00 Depakote 2011-10 No Tatyana 500 mg, Memor ia 10-21 Jessica Route: IV, l 03:17: Jose David ONCE, Dosing Weight 72.727, kg, Start date: 08/20/12 21:17:00, Stop date: 08/20/12 21:17:00 Depakote ER 2011-10 Yes 500 mg, 1 M emoria 500 mg oral 1-17 tab, PO, l tablet, 22:02: BID, 30 Radisson extended 13 tab, release Substituti on Allowed, ERTAB Depakote ER 2011-10 Yes 500 mg, 1 M emoria 500 mg oral 1-17 tab, PO, l tablet, 22:02: BID, 30 Radisson extended 13 tab, release Substituti on Allowed, ERTAB Depakote ER 2011-10 Yes 500 mg, 1 [...] BID Fycompa 10 Common MG MG MG [facility] BusPIRone BusPIRone No 1{table TID BusPIRone Common HCl 5 MG HCl 5 MG t} HCl 5 MG [facility] Lantus 100 Lantus 100 No BID Lantus 100 Common UNIT/ML UNIT/ML UNIT/ML [facility] Citalopram Citalopram No 1{table QD Citalopram Common Hydrobromid Hydrobromid t} Hydrobromi Spirit e 20 MG e 20 MG de 20 MG [facility] Latuda 20 Latuda 20 No 1{table QD Latuda 20 Common MG MG t} MG [facility] Keppra Keppra No Keppra Common [facility] Fycompa 10 Fycompa 10 No BID Fycompa 10 MG MG MG Lantus 100 Lantus 100 No BID Lantus 100 UNIT/ML UNIT/ML UNIT/ML Eliquis 5 Eliquis 5 No 1{table BID Eliquis 5 MG MG t} MG Vital Signs Vital Name Observation Time Observation Value Comments Source height 2020-10-15 10:20:00 65 [in_i] [facility] weight 2020-10-15 10:20:00 180 [lb_av] [facility] temperature 2020-10-15 10:20:00 98.7 [degF] [facility] bmi 2020-10-15 10:20:00 29.95 kg/m2 [facility] blood pressure 2020-10-15 10:20:00 131 mm[Hg] [facility] - systolic [facility] blood pressure 2020-10-15 10:20:00 74 mm[Hg] [facility] - diastolic [facility] Weight 2012-08-20 21:07:00 [facility] Height 2012-08-20 21:07:00 165.10 cm [facility] Procedures This patient has no known procedures. Encounters Start End Encounter Admission Attending Care Care Encounter Source Date/Time Date/Time Type Type Clinicians Facility Department ID 2022-07-02 Outpatient [facility] [id number] [place] 04:48:[id number] [facility] 2021-10-29 Outpatient Allen, STLMLC STLMLC [id number] Common 12:21:25 [facility] [address] [facility] 2021-10-29 Outpatient Lalen, STLMLC STLMLC [id number] Common 12:19:51 [facility] [address] [facility] 2021-10-29 Outpatient Allen, STLMLC STLMLC [id number] Common 12:16:00 [facility] [address] [facility] 2020-10-15 2020-10-15 OFFICE STLMLC STLMLC [id number] Co mmon 00:00:00 00:00:00 VISIT NEW [facility] it PT LEVEL 3 [facility] 2020-09-25 2020-09-25 (TEL) STLMLC STLMLC [id number] Co mmon 00:00:00 00:00:00 [facility] 2012-08-20 2012-08-[id number] Memoria 15:06:00 23:52:00 r Medical 00 l [facility] 2012-08-20 2012-08-20 [facility] [id number] Memoria 15:06:00 23:52:00 r Medical 00 l [facility] Results Test Description Test Time Test Comments Results Result Comments Source CHEMISTRY 2012-08-20 22:46:00 Test Item Value Reference Range Interpretation Comme nts Valproic Acid Lvl (test code = Valproic Acid Lvl) 128 50-1 00 H [facility]huGMFXZTZFH6935-46-50 22:46:00 Test Item Value Reference Range Interpretation Comments Valproic Acid Lvl (test code = Valproic 128 50-100 H Acid Lvl) [facility]kiwheyNVHJUQBII6971-37-06 22:46:00 Test Item Value Reference Range Interpretation Comments Valproic Acid Lvl (test code = Valproic 128 50-100 H Acid Lvl) [facility] LancasterAncdetzSUDYKWDSD4300-71-02 22:42:00 Test Item Value Reference Range Interpretation Comments Sodium Lvl (test code = Sodium Lvl) 140 135-145 N [facility]xdjaoRWPFKIDMLH5939-65-38 22:42:00 Test Item Value Reference Range Interpretation Comments MCH (test code = MCH) 30.3 pg 27.0-31.0 N [facility] SystemCjtossbKFCTJOEOYL6726-38-18 22:42:00 Test Item Value Reference Range Interpretation Comments MCHC (test code = MCHC) 33.5 32.0-36.0 N [facility] SystemFfsaydtVQXLAZXLLB8872-80-43 22:42:00 Test Item Value Reference Range Interpretation Comments Platelet (test code = Platelet) 204 133-450 N [facility] SystemWjrngymJGLXPLDDBO5358-80-07 22:42:00 Test Item Value Reference Range Interpretation Comments RDW (test code = RDW) 12.0 11.5-14.5 N [facility] SystemAinxyfcMAQJMMGRWU8871-94-63 22:42:00 Test Item Value Reference Range Interpretation Comments RBC (test code = RBC) 4.38 4.70-6.10 L [facility] SystemDtvccctBQIYQZRZPR0727-18-26 22:42:00 Test Item Value Reference Range Interpretation Comments WBC (test code = WBC) 8.0 3.7-10.4 N [facility] LancasterIlcnsdsZEDOPOQGQ8615-91-59 22:42:00 Test Item Value Reference Range Interpretation Comments Creatinine Lvl (test code = Creatinine 0.7 0.5-1.4 N Lvl) [facility] SystemApdiuhsIINUHRSGDI3714-31-41 22:42:00 Test Item Value Reference Range Interpretation Comments MCV (test code = MCV) 90.5 80.0-94.0 N [facility] SystemCwxlslhODHNDFUNIO4701-32-89 22:42:00 Test Item Value Reference Range Interpretation Comments Hgb (test code = Hgb) 13.3 14.0-18.0 L [facility] SystemJgkkeuyVQIEDVKZLZ5071-67-75 22:42:00 Test Item Value Reference Range Interpretation Comments Hct (test code = Hct) 39.7 42.0-54.0 L [facility] LancasterTtnlcjlRUKBCYWTR3563-16-96 22:42:00 Test Item Value Reference Range Interpretation Comments Potassium Lvl (test code = Potassium 5.0 3.5-5.1 N Lvl) [facility] LancasterZazoudeOHCIFNIKU7037-26-53 22:42:00 Test Item Value Reference Range Interpretation Comments Chloride Lvl (test code = Chloride Lvl) 103 95-109 N [facility] LancasterEaynqufGHVDJOPDM4067-12-32 22:42:00 Test Item Value Reference Range Interpretation Comments BUN (test code = BUN) 13 7-22 N [facility] LancasterTkitvspXRKODQHOB2876-49-05 22:42:00 Test Item Value Reference Range Interpretation Comments Glucose Lvl (test code = Glucose Lvl) 83 70-99 N [facility] LancasterPlljlfuWGQWBEKIZ2943-79-18 22:42:00 Test Item Value Reference Range Interpretation Comments Calcium Lvl (test code = Calcium Lvl) 9.3 8.5-10.5 N [facility] LancasterOhtzyotZIIRXGYDB4326-43-52 22:42:00 Test Item Value Reference Range Interpretation Comments CO2 (test code = CO2) 31 24-32 N [facility] LancasterPutjkdwRGIYRAZJS3074-09-90 22:42:00 Test Item Value Reference Range Interpretation Comments AGAP (test code = AGAP) 11.0 10.0-20.0 N [facility] LancasterAmrnqykXOSGRTHFQ6912-76-73 22:42:00 Test Item Value Reference Range Interpretation Comments eGFR (test code = eGFR) 131 [facility] LancasterCrbkplfHPFPPCRMD0845-49-58 22:42:00 Test Item Value Reference Range Interpretation Comments Sodium Lvl (test code = Sodium Lvl) 140 135-145 N [facility] LancasterKreeqdpZSUVROYOP3390-84-57 22:42:00 Test Item Value Reference Range Interpretation Comments Creatinine Lvl (test code = Creatinine 0.7 0.5-1.4 N Lvl) [facility] LancasterRgpcdflCNVHQMNNL2694-85-91 22:42:00 Test Item Value Reference Range Interpretation Comments Potassium Lvl (test code = Potassium 5.0 3.5-5.1 N Lvl) [facility] LancasterAadptdcNBFWMJMQB1457-66-76 22:42:00 Test Item Value Reference Range Interpretation Comments Phosphorus (test code = Phosphorus) 4.7 2.5-4.5 H [facility] LancasterKjouhdqBIVNJDDBW3458-41-45 22:42:00 Test Item Value Reference Range Interpretation Comments Chloride Lvl (test code = Chloride Lvl) 103 95-109 N [facility] LancasterIcxkeqqFIARQWUZS9401-64-87 22:42:00 Test Item Value Reference Range Interpretation Comments Phosphorus (test code = Phosphorus) 4.7 2.5-4.5 H [facility] LancasterKzvumaoEFMUVMBOX9546-88-02 22:42:00 Test Item Value Reference Range Interpretation Comments Magnesium Lvl (test code = Magnesium 1.8 1.8-2.4 N Lvl) [facility] SystemSltzxszVXRVXNKHVB9853-80-49 22:42:00 Test Item Value Reference Range Interpretation Comments Basophils # (test code 0.1 See_Comment N [Aut omated message] The = Basophils #) system which generated this result tra nsmitted reference range : <=0.2. The reference r terri was not used to int erpret this result as normal/abnormal . [facility] SystemZhosbscCDNKBKERJU9854-95-85 22:42:00 Test Item Value Reference Range Interpretation Comments Lymphocytes # (test code = Lymphocytes 2.5 1.0-5.5 N #) [facility] SystemOfedwgsGXEUYILGSF9355-47-56 22:42:00 Test Item Value Reference Range Interpretation Comments Basophils (test code = 0.7 See_Comment N [Aut omated message] The Basophils) system which ge nerated this result tra nsmitted reference range : <=1.0. The reference r terri was not used to int erpret this result as normal/abnormal . [facility] SystemMhmthkaWBUDDLDKML9609-81-31 22:42:00 Test Item Value Reference Range Interpretation Comments Monocytes # (test code 0.4 See_Comment N [Aut omated message] The = Monocytes #) system which generated this result tra nsmitted reference range : <=0.8. The reference r terri was not used to int erpret this result as normal/abnormal . [facility] SystemNqpayenNOMWGEXHSF7100-20-51 22:42:00 Test Item Value Reference Range Interpretation Comments Segs-Bands # (test code = Segs-Bands #) 4.9 1.5-8.1 N [facility] SystemFqgnipbJVJPCBQIES0314-68-36 22:42:00 Test Item Value Reference Range Interpretation Comments Eosinophils (test code = 1.0 See_Comment N [A utomated message] The Eosinophils) system which ge nerated this result tra nsmitted reference range : <=4.0. The reference r terri was not used to int erpret this result as normal/abnormal . [facility] SystemIuuhzfgVJPVPAVOQT0980-22-02 22:42:00 Test Item Value Reference Range Interpretation Comments Eosinophils # (test code 0.1 See_Comment N [A utomated message] The = Eosinophils #) system whic h generated this result tra nsmitted reference range : <=0.5. The reference r terri was not used to int erpret this result as normal/abnormal . [facility] LancasterRadlgfzKGCDRVSCG7863-97-96 22:42:00 Test Item Value Reference Range Interpretation Comments Magnesium Lvl (test code = Magnesium 1.8 1.8-2.4 N Lvl) [facility] SystemVzqhbwoTAGOWBWRGV8178-63-59 22:42:00 Test Item Value Reference Range Interpretation Comments Monocytes (test code = Monocytes) 5.0 2.0-12.0 N [facility] SystemQkhazobWEQOVPSTWT8904-69-10 22:42:00 Test Item Value Reference Range Interpretation Comments Lymphocytes (test code = Lymphocytes) 31.3 20.0-40.0 N [facility] SystemObgkghpNURUGHBNKQ4217-55-12 22:42:00 Test Item Value Reference Range Interpretation Comments Segs (test code = Segs) 62.0 45.0-75.0 N [facility] SystemDiyggoaVMCARUVCCD5066-14-93 22:42:00 Test Item Value Reference Range Interpretation Comments MPV (test code = MPV) 9.0 7.4-10.4 N [facility] SystemAwuywmbZZFTIBWXUL0910-24-68 22:42:00 Test Item Value Reference Range Interpretation Comments MCH (test code = MCH) 30.3 pg 27.0-31.0 N [facility] SystemFirkvzpEEFDVDCTOW2219-76-75 22:42:00 Test Item Value Reference Range Interpretation Comments MCHC (test code = MCHC) 33.5 32.0-36.0 N [facility] SystemXoskqldFHLCPGYLUM5187-74-68 22:42:00 Test Item Value Reference Range Interpretation Comments Platelet (test code = Platelet) 204 133-450 N [facility] SystemFbfwtltTNQWIIAUPM5554-88-29 22:42:00 Test Item Value Reference Range Interpretation Comments RDW (test code = RDW) 12.0 11.5-14.5 N [facility] SystemZhekvpaCQRWHMSFWY7015-54-26 22:42:00 Test Item Value Reference Range Interpretation Comments RBC (test code = RBC) 4.38 4.70-6.10 L [facility] SystemMuyzhswZSBIBOODKJ3471-21-78 22:42:00 Test Item Value Reference Range Interpretation Comments WBC (test code = WBC) 8.0 3.7-10.4 N [facility] SystemQskrsmgYPTFWKVKAE9120-74-21 22:42:00 Test Item Value Reference Range Interpretation Comments Basophils # (test code 0.1 See_Comment N [Aut omated message] The = Basophils #) system which generated this result tra nsmitted reference range : <=0.2. The reference r terri was not used to int erpret this result as normal/abnormal . [place] 925802-11-17 22:42:00 Test Item Value Reference Range Interpretation Comments MCV (test code = MCV) 90.5 80.0-94.0 N [facility] SystemPfvgpckKHIGNLTWFI4721-38-06 22:42:00 Test Item Value Reference Range Interpretation Comments Hgb (test code = Hgb) 13.3 14.0-18.0 L [facility] SystemLmtiqawTTCQRUIXCK1708-01-57 22:42:00 Test Item Value Reference Range Interpretation Comments Hct (test code = Hct) 39.7 42.0-54.0 L [facility] SystemFejeccvYUFRQXCLIJ4428-29-16 22:42:00 Test Item Value Reference Range Interpretation Comments Lymphocytes # (test code = Lymphocytes 2.5 1.0-5.5 N #) [facility] SystemDfrztjqQMCRHGTYML0702-99-09 22:42:00 Test Item Value Reference Range Interpretation Comments Basophils (test code = 0.7 See_Comment N [Aut omated message] The Basophils) system which ge nerated this result tra nsmitted reference range : <=1.0. The reference r terri was not used to int erpret this result as normal/abnormal . [facility] SystemSlqqdjiRTQWOZGGYI7282-66-73 22:42:00 Test Item Value Reference Range Interpretation Comments Monocytes # (test code 0.4 See_Comment N [Aut omated message] The = Monocytes #) system which generated this result tra nsmitted reference range : <=0.8. The reference r terri was not used to int erpret this result as normal/abnormal . [place] 925802-11-17 22:42:00 Test Item Value Reference Range Interpretation Comments Segs-Bands # (test code = Segs-Bands #) 4.9 1.5-8.1 N [facility] SystemSmrhpgcJMFRGQGFWK8081-68-26 22:42:00 Test Item Value Reference Range Interpretation Comments Eosinophils (test code = 1.0 See_Comment N [A utomated message] The Eosinophils) system which ge nerated this result tra nsmitted reference range : <=4.0. The reference r terri was not used to int erpret this result as normal/abnormal . [facility] SystemEgtndjxMGOUXHRNYI6031-85-36 22:42:00 Test Item Value Reference Range Interpretation Comments Eosinophils # (test code 0.1 See_Comment N [A utomated message] The = Eosinophils #) system whic h generated this result tra nsmitted reference range : <=0.5. The reference r terri was not used to int erpret this result as normal/abnormal . [facility] SystemJjwfurjHHBQZNROIX5874-60-40 22:42:00 Test Item Value Reference Range Interpretation Comments Monocytes (test code = Monocytes) 5.0 2.0-12.0 N [facility] SystemVpcnczjHKGNWPYABH6716-36-80 22:42:00 Test Item Value Reference Range Interpretation Comments Lymphocytes (test code = Lymphocytes) 31.3 20.0-40.0 N [facility] SystemKogsdzuKVEFMCXBKJ0196-64-89 22:42:00 Test Item Value Reference Range Interpretation Comments Segs (test code = Segs) 62.0 45.0-75.0 N [facility] SystemGadtwqpPPEJEWQBSZ7990-28-64 22:42:00 Test Item Value Reference Range Interpretation Comments MPV (test code = MPV) 9.0 7.4-10.4 N [facility] SystemXcqmdspPRSIZONVWB1979-00-05 22:42:00 Test Item Value Reference Range Interpretation Comments MCH (test code = MCH) 30.3 pg 27.0-31.0 N [facility] SystemNqsxgnoCIWVNSMQWX1893-76-61 22:42:00 Test Item Value Reference Range Interpretation Comments MCHC (test code = MCHC) 33.5 32.0-36.0 N [facility] SystemUjwmnasOIRYWJDOGN8390-21-50 22:42:00 Test Item Value Reference Range Interpretation Comments Platelet (test code = Platelet) 204 133-450 N [facility] SystemZhtkrtgCPQNNDHVMU8988-94-81 22:42:00 Test Item Value Reference Range Interpretation Comments RDW (test code = RDW) 12.0 11.5-14.5 N [facility] SystemQwoexlkEYRVUEWBSB6493-63-33 22:42:00 Test Item Value Reference Range Interpretation Comments RBC (test code = RBC) 4.38 4.70-6.10 L [facility] SystemHyhytojTTPGCHBYZZ1138-01-26 22:42:00 Test Item Value Reference Range Interpretation Comments WBC (test code = WBC) 8.0 3.7-10.4 N [place] [address]-11-17 22:42:00 Test Item Value Reference Range Interpretation Comments BUN (test code = BUN) 13 7-22 N [facility] SystemYeipuseAQZYVDBMUK3118-36-88 22:42:00 Test Item Value Reference Range Interpretation Comments MCV (test code = MCV) 90.5 80.0-94.0 N [facility] SystemUqqgeanBDAKXYFVTS1623-90-52 22:42:00 Test Item Value Reference Range Interpretation Comments Hgb (test code = Hgb) 13.3 14.0-18.0 L [facility] SystemNeyenaxEKRMNPFKMF7767-18-04 22:42:00 Test Item Value Reference Range Interpretation Comments Hct (test code = Hct) 39.7 42.0-54.0 L [facility] LancasterPaulqriYEAZFLYND0364-08-88 22:42:00 Test Item Value Reference Range Interpretation Comments Glucose Lvl (test code = Glucose Lvl) 83 70-99 N [facility] LancasterIgnyubmHZTZEGWKF4609-43-69 22:42:00 Test Item Value Reference Range Interpretation Comments BUN (test code = BUN) 13 7-22 N [facility] LancasterIyrkunwHTPSDIKJX1742-54-75 22:42:00 Test Item Value Reference Range Interpretation Comments Glucose Lvl (test code = Glucose Lvl) 83 70-99 N [facility] LancasterLgqptplKZAWMNQRJ7879-95-66 22:42:00 Test Item Value Reference Range Interpretation Comments Calcium Lvl (test code = Calcium Lvl) 9.3 8.5-10.5 N [facility] LancasterFcvcyhzWRERERSQK9438-49-85 22:42:00 Test Item Value Reference Range Interpretation Comments CO2 (test code = CO2) 31 24-32 N [facility] LancasterJxdhxxjRMBMFWKDB5884-38-22 22:42:00 Test Item Value Reference Range Interpretation Comments Calcium Lvl (test code = Calcium Lvl) 9.3 8.5-10.5 N [facility] LancasterIzbtssxWZESPOVGC4329-07-38 22:42:00 Test Item Value Reference Range Interpretation Comments AGAP (test code = AGAP) 11.0 10.0-20.0 N [facility] LancasterMqvihyrCIILZJNDK8850-76-67 22:42:00 Test Item Value Reference Range Interpretation Comments eGFR (test code = eGFR) 131 [facility] LancasterAqzpkruGMMTLNLVM0990-90-51 22:42:00 Test Item Value Reference Range Interpretation Comments Sodium Lvl (test code = Sodium Lvl) 140 135-145 N [facility] LancasterBnwhnewDYOJDKASG2629-36-30 22:42:00 Test Item Value Reference Range Interpretation Comments Creatinine Lvl (test code = Creatinine 0.7 0.5-1.4 N Lvl) [facility] LancasterUddselhSMVYZPPRF2422-19-99 22:42:00 Test Item Value Reference Range Interpretation Comments Potassium Lvl (test code = Potassium 5.0 3.5-5.1 N Lvl) [facility] LancasterDyuqzhxKAPQDAZCB2727-21-49 22:42:00 Test Item Value Reference Range Interpretation Comments CO2 (test code = CO2) 31 24-32 N [facility] LancasterPhslunqEDQYVDFEM3487-89-04 22:42:00 Test Item Value Reference Range Interpretation Comments Chloride Lvl (test code = Chloride Lvl) 103 95-109 N [facility] LancasterZbqonriFDDEPTSBP3092-70-51 22:42:00 Test Item Value Reference Range Interpretation Comments Phosphorus (test code = Phosphorus) 4.7 2.5-4.5 H [facility] LancasterBfwkhbuHRAOSELQH5804-31-43 22:42:00 Test Item Value Reference Range Interpretation Comments Magnesium Lvl (test code = Magnesium 1.8 1.8-2.4 N Lvl) [facility] SystemAbbeosgUDVPDBJOSD8942-54-67 22:42:00 Test Item Value Reference Range Interpretation Comments Basophils # (test code 0.1 See_Comment N [Aut omated message] The = Basophils #) system which generated this result tra nsmitted reference range : <=0.2. The reference r terri was not used to int erpret this result as normal/abnormal . [facility] SystemKtmxukeEQXUORPDQU9821-97-30 22:42:00 Test Item Value Reference Range Interpretation Comments Lymphocytes # (test code = Lymphocytes 2.5 1.0-5.5 N #) [facility] [id number] 22:42:00 Test Item Value Reference Range Interpretation Comments Basophils (test code = 0.7 See_Comment N [Aut omated message] The Basophils) system which ge nerated this result tra nsmitted reference range : <=1.0. The reference r terri was not used to int erpret this result as normal/abnormal . [id number] 22:42:00 Test Item Value Reference Range Interpretation Comments AGAP (test code = AGAP) 11.0 10.0-20.0 N [id number] 22:42:00 Test Item Value Reference Range Interpretation Comments Monocytes # (test code 0.4 See_Comment N [Aut omated message] The = Monocytes #) system which generated this result tra nsmitted reference range : <=0.8. The reference r terri was not used to int erpret this result as normal/abnormal . [facility] [id number] 22:42:00 Test Item Value Reference Range Interpretation Comments Segs-Bands # (test code = Segs-Bands #) 4.9 1.5-8.1 N [facility] [id number] 22:42:00 Test Item Value Reference Range Interpretation Comments Eosinophils (test code = 1.0 See_Comment N [A utomated message] The Eosinophils) system which ge nerated this result tra nsmitted reference range : <=4.0. The reference r terri was not used to int erpret this result as normal/abnormal . [facility] [id number] 22:42:00 Test Item Value Reference Range Interpretation Comments Eosinophils # (test code 0.1 See_Comment N [A utomated message] The = Eosinophils #) system whic h generated this result tra nsmitted reference range : <=0.5. The reference r terri was not used to int erpret this result as normal/abnormal . [facility] L[id number] 22:42:00 Test Item Value Reference Range Interpretation Comments eGFR (test code = eGFR) 131 [facility] [id number] 22:42:00 Test Item Value Reference Range Interpretation Comments Monocytes (test code = Monocytes) 5.0 2.0-12.0 N [facility] [id number] 22:42:00 Test Item Value Reference Range Interpretation Comments Lymphocytes (test code = Lymphocytes) 31.3 20.0-40.0 N [facility] [id number] 22:42:00 Test Item Value Reference Range Interpretation Comments Segs (test code = Segs) 62.0 45.0-75.0 N [facility] [id number] 22:42:00 Test Item Value Reference Range Interpretation Comments MPV (test code = MPV) 9.0 7.4-10.4 N [facility] GLUCOSE [id number] 21:59:00 Test Item Value Reference Range Interpretation Comments Gluc POC Lifscn (test code = Gluc POC 86 70-99 N Lifscn) [facility] GLUCOSE [id number] 21:59:00 Test Item Value Reference Range Interpretation Comments Gluc POC Lifscn (test code = Gluc POC 86 70-99 N Lif[place]n) [facility] GLUCOSE [id number] 21:59:00 Test Item Value Reference Range Interpretation Comments Gluc POC Lifscn (test code = Gluc POC 86 70-99 N Lifscn) [facility]
[2022-10-09] MEDS ORDERED: levETIRAcetam 500 MG TAB ONE (22:19)
--- NOTE | 2022-10-09 22:27 | EDPHYS ---
Physician Documentation [facility] Name: Shan Faye Age: 37 yrs Sex: Male : 1985 Arrival Date: 10/09/2022 Time: 22:04 Bed 13 Private MD: CLAUDE Physician Dai Barker HPI: 10/09 22:07 This 37 yrs old Male presents to ER via Unassigned with complaints of Seizure. sd2 22:07 37-year-old male with a history of seizures presents with chief complaint of sd2 seizure-like activity. He had a witnessed seizure at home and has not completely returned to his baseline. There is no noted head injury or trauma. The patient denies any pain. He reports that he did not take any of his medications today and he normally takes Keppra twice daily. He reports he forgot to take his medications today. He otherwise reports he feels fine and has no other complaints.. 22:24 Mother now at bedside reports the patient did have his seizure medication this morning sd2 but started a new job this week and this was the first night he worked late and has not taken his normal seizure medication that he would have taken by 9 PM. He also did not have a chance to eat at work. Therefore, the patient was off of his routine today.. Historical: - Home Meds: 22:54 Keppra 750 mg Oral tab 2 tabs 2 times per day [Active]; pf1 - PMHx: 22:54 brain disorder; CVA; Seizure; pf1 - PSHx: 22:54 Cholecystectomy; pf1 - Immunization history:: Adult Immunizations unknown. - Social history:: Smoking status: unknown Patient/guardian denies using. ROS: 22:07 Constitutional: Negative for fever, chills, and weight loss, Eyes: Negative for injury, sd2 pain, redness, and discharge, Cardiovascular: Negative for chest pain, palpitations, and edema, Respiratory: Negative for shortness of breath, cough, wheezing. Abdomen/GI: Negative for abdominal pain, nausea, vomiting, diarrhea. MS/Extremity: Negative for injury and deformity, Skin: Negative for injury, rash, and discoloration, Neuro: Negative for headache, numbness and tingling. Positive for seizure. Exam: 22:07 Constitutional: This is a well developed, well nourished patient who is awake, alert, sd2 and in no acute distress. Head/Face: Normocephalic, atraumatic. Eyes: EOMI, normal conjunctiva bilaterally Chest/axilla: Normal chest wall appearance and motion. Nontender with no deformity. Cardiovascular: Regular rate and rhythm with a normal S1 and S2. No gallops, murmurs, or rubs. 2+ distal pulses. Respiratory: Lungs have equal breath sounds bilaterally, clear to auscultation and percussion. No rales, rhonchi or wheezes noted. No increased work of breathing, no retractions or nasal flaring. Abdomen/GI: Soft, non-tender, with normal bowel sounds. No guarding or rebound. No evidence of tenderness throughout. Skin: Warm, dry with normal turgor. Normal color with no rashes, no lesions, and no evidence of cellulitis. MS/ Extremity: Pulses equal, no cyanosis. Neurovascular intact. Full, normal range of motion. Ambulatory without difficulty. Neuro: Awake and alert, GCS 15, oriented to person, place, time, and situation. Cranial nerves II-XII grossly intact. Motor strength 5/5 in all extremities. Sensory grossly intact. Cerebellar exam normal. Normal gait. Psych: Awake, alert, with orientation to person, place and time. Behavior, mood, and affect are within normal limits. Vital Signs: 22:10 BP 136 / 91; Pulse 78; Resp 13; Temp 98.8; Pulse Ox 95% on R/A; Weight 89.36 kg; Height pf1 5 ft. 5 in. (165.10 cm); Pain 0/10; 22:51 BP 126 / 98; Pulse 78; Resp 20; Temp 98.5; Pulse Ox 95% on R/A; Pain 0/10; pf1 22:10 Body Mass Index 32.78 (89.36 kg, 165.10 cm) pf1 [place] Coma Score: 22:53 Eye Response: spontaneous(4). Verbal Response: oriented(5). Motor Response: obeys pf1 commands(6). Total: 15. MDM: 22:05 Patient medically screened. sd2 22:07 Differential diagnosis: Breakthrough seizure, medication noncompliance, electrolyte sd2 abnormality among others. Data reviewed: vital signs, nurses notes, EMS record. 22:24 Counseling: I had a detailed discussion with the patient and/or guardian regarding: the sd2 historical points, exam findings, and any diagnostic results supporting the discharge/admit diagnosis, the need for outpatient follow up, to return to the emergency department if symptoms worsen or persist or if there are any questions or concerns that arise at home. ED course: Patient has returned to his baseline with no focal neurologic deficits noted on exam. He states that he feels well and has no current complaints. He is ambulatory without difficulty. He was given his Keppra dosage to prevent further seizure activity. Mother and patient are comfortable with plan for discharge and outpatient follow-up. They verbalized understanding of strict return precautions.. Administered Medications: 22:20 Drug: Keppra (levETIRAcetam) 1500 mg Route: PO; pf1 22:52 Follow up: Response: No adverse reaction; Marked relief of symptoms pf1 Disposition Summary: 10/09/22 22:27 Discharge Ordered Location: Home sd2 Problem: an acute exacerbation sd2 Symptoms: are resolved sd2 Condition: Stable sd2 Diagnosis - Seizure-like activity sd2 - Medication non-compliance sd2 Followup: sd2 - With: Private Physician - When: 2 - 3 days - Reason: Recheck today's complaints, Continuance of care, Re-evaluation by your physician Discharge Instructions: - Discharge Summary Sheet sd2 - Seizure, Adult sd2 Forms: - Medication Reconciliation Form sd2 - Thank You Letter sd2 - Antibiotic Education sd2 - Prescription Opioid Use sd2 - Work release form pf1 Signatures: Dai Barker MD MD sd2 Estephanie miranda RN RN pf1
--- NOTE | 2022-10-09 22:55 | ER ---
Nurse's Notes [facility] Name: Shan Faye Age: 37 yrs Sex: Male : 1985 Arrival Date: 10/09/2022 Time: 22:04 Bed 13 Private MD: Diagnosis: Seizure-like activity;Medication non-compliance Presentation: 10/09 22:04 Chief complaint: EMS states: focal motor seizure like activity to arm,onset 30 minutes pf1 [employer] while at work that was reported by co-workers. EMS stated denies patient falling. 22:04 Coronavirus screen: Client denies travel out of the [place] in the last 14 days. At this pf1 time, the client does not indicate any symptoms associated with coronavirus-19. Ebola Screen: Patient negative for fever greater than or equal to 101.5 degrees Fahrenheit, and additional compatible Ebola Virus Disease symptoms. 22:04 Method Of Arrival: EMS: [facility] pf1 22:10 Initial Sepsis Screen: Does the patient meet any 2 criteria? No. Patient's initial pf1 sepsis screen is negative. Does the patient have a suspected source of infection? No. Patient's initial sepsis screen is negative. Risk Assessment: Do you want to hurt yourself or someone else? Patient reports no desire to harm self or others. Onset of symptoms was October 09, 2022. 22:10 Acuity: PAULINE 3 pf1 Triage Assessment: 22:05 General: Appears in no apparent distress. comfortable, well groomed, well developed. pf1 Historical: - Home Meds: 22:54 Keppra 750 mg Oral tab 2 tabs 2 times per day [Active]; pf1 - PMHx: 22:54 brain disorder; CVA; Seizure; pf1 - PSHx: 22:54 Cholecystectomy; pf1 - Immunization history:: Adult Immunizations unknown. - Social history:: Smoking status: unknown Patient/guardian denies using. Screenin:10 [facility] ED Fall Risk Assessment (Adult) History of falling in the last 3 months, pf1 including since admission No falls in past 3 months (0 pts) Confusion or Disorientation No (0 pts) Intoxicated or Sedated No (0 pts) Impaired Gait No (0 pts) Mobility Assist Device Used No (0 pt) Altered Elimination No (0 pt) Score/Fall Risk Level 0 - 2 = Low Risk Oriented to surroundings, Maintained a safe environment, Educated pt \T\ family on fall prevention, incl call for assistance when getting out of bed, Assessed \T\ reinforced patient's understanding of fall precautions, Provided non-skid footwear, Hourly rounding (assess needs \T\ fall precautionary measures) done, Used ambulatory aids as needed (educated on \T\ assisted with), Used gait belt as appropriate. 22:10 Abuse screen: Denies threats or abuse. Nutritional screening: No deficits noted. pf1 22:10 Tuberculosis screening: No symptoms or risk factors identified. pf1 Assessment: 22:04 General: Appears in no apparent distress. comfortable, well groomed, well developed, pf1 Behavior is calm, cooperative, appropriate for age, quiet. 22:04 Pain: Denies pain. Neuro: Level of Consciousness is awake, alert, obeys commands, pf1 Oriented to person, place, time, situation, ESM reported patient had a focal motor seizure [employer] with history of seizure. Mother stated patient has not had his even dose of Keppra 750mg tonight because he was working.. Cardiovascular: No deficits noted. Capillary refill < 3 seconds. Respiratory: No deficits noted. Airway is patent Trachea midline Respiratory effort is even, unlabored, Respiratory pattern is regular, symmetrical. GI: No deficits noted. Abdomen is flat, non-distended. : No deficits noted. No signs and/or symptoms were reported regarding the genitourinary system. EENT: No deficits noted. No signs and/or symptoms were reported regarding the EENT system. Derm: No deficits noted. No signs and/or symptoms reported regarding the dermatologic system. Vital Signs: 22:10 BP 136 / 91; Pulse 78; Resp 13; Temp 98.8; Pulse Ox 95% on R/A; Weight 89.36 kg; Height pf1 5 ft. 5 in. (165.10 cm); Pain 0/10; 22:51 BP 126 / 98; Pulse 78; Resp 20; Temp 98.5; Pulse Ox 95% on R/A; Pain 0/10; pf1 22:10 Body Mass Index 32.78 (89.36 kg, 165.10 cm) pf1 [place] Coma Score: 22:53 Eye Response: spontaneous(4). Verbal Response: oriented(5). Motor Response: obeys pf1 commands(6). Total: 15. ED Course: 22:04 Patient arrived in ED. wm 22:05 Dai Barker MD is Attending Physician. sd2 22:05 Patient has correct armband on for positive identification. Bed in low position. Call pf1 light in reach. Side rails up X2. Seizure precautions initiated. 22:10 Arm band placed on right wrist. pf1 22:14 Estephanie miranda, RN is Primary Nurse. pf1 22:32 Triage completed. pf1 22:53 No provider procedures requiring assistance completed. Patient did not have IV access pf1 during this emergency room visit. Administered Medications: 22:20 Drug: Keppra (levETIRAcetam) 1500 mg Route: PO; pf1 22:52 Follow up: Response: No adverse reaction; Marked relief of symptoms pf1 Medication: 22:54 VIS not applicable for this client. pf1 Outcome: 22:27 Discharge ordered by . sd2 22:53 Discharged to home via wheelchair, with family. pf1 22:53 Condition: improved 22:53 Discharge instructions given to patient, family, Instructed on discharge instructions, follow up and referral plans. 22:54 Patient left the ED. pf1 Signatures: Raquel Jean Baptiste Dai Barker MD MD sd2 Estephanie miranda, RN RN pf1
[2022-10-09 23:36] VITALS: O2SAT 95
[2022-10-09 23:38] VITALS: BP 126/98; TEMP 98.5
== END 2022-10-09 22:54 | disposition home or self-care (01) ==
LOC: ER 21:59
DX: G40.909 Epilepsy, unspecified, not intractable, without status epilepticus (principal); Z86.73 Personal history of transient ischemic attack (TIA), and cerebral infarction without residual deficits
CPT/HCPCS: 99283

== ENCOUNTER 2022-11-06 10:36 | Emergency (ER) | payer OTHER ==
--- OUTSIDE RECORDS SUMMARY | 2022-11-06 10:40 | XMS REPORT | Continuity of Care Document ---
:1985 Author Organization [facility] t Address [address] [place] [address] Care Team Providers Name Role Phone Jethro Allen Attending Clinician Unavailable Payers Payer Name Policy Type Policy Number Effective Date Expiration Date Elver yanes [place] [id number] 2015 [employer] 00:00:00 [facility] Problems Condition Condition Condition Status Onset Resolution Last Treating Co mments Source Name Details Category Date Date Treatment Clinician Date SEIZURES SEIZURES Diagnosis Active 2011-102012-08-20 Memoria Active 10-20 17:32:00 l 08/20/2012 00:00: Jake denise [address] [id number] Type 2 Problem Active Common diabetes Spirit mellitus - [facility] with [facility] [id number] IRENE Problem Active 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 Social History Social Habit Start Date Stop Date Quantity Comments Source History of Tobacco Use Co mmon [facility] - [facility] Sex Assigned At Com mon [facility] - [facility] Smoking Status Start Date Stop Date Source Never Smoker Common [facility] Medications Ordered Filled Start Stop Current Ordering Indication Dosage Frequency Signature Comments Components Source Medication Medication Date Date Medication? Clinician (SIG) Name Name [facility]2011-10 Yes Tatyana 750 mg, 3 Mem oria [...] Chambers mL, Route: l Chloride 03:49: IVPB, Guadalupe 0.9% IV 50 00 ONCE, mL Start date: 08/20/12 21:49:00, Stop date: 08/20/12 21:49:00 Depacon + 2011-10 No Terri A 500 mg, 5 Memoria Sodium 1-18 Chambers mL, Route: l Chloride 03:49: IVPB, Guadalupe 0.9% IV 50 00 ONCE, mL Start [...] Chambers mL, Route: l Chloride 03:49: IVPB, Guadalupe 0.9% IV 50 00 ONCE, mL Start date: 08/20/12 21:49:00, Stop date: 08/20/12 21:49:00 Depakote 2011-10 No Tatyana 500 mg, Memor ia 1-18 Jessica Route: IV, l 03:17: Jose David ONCE, Chase 00 Dosing Weight 72.727, kg, Start date: 08/20/12 21:17:00, Stop date: 08/20/12 21:17:00 Depakote 2011-10 No Tatyana 500 mg, Memor ia 1-18 Jessica Route: IV, l 03:17: Jose David ONCE, Chase 00 Dosing Weight 72.727, kg, Start date: 08/20/12 21:17:00, Stop date: 08/20/12 21:17:00 Depakote 2011-10 No Tatyana 500 mg, Memor ia 1-18 Jessica Route: IV, l 03:17: Jose David ONCE, Chase 00 Dosing Weight 72.727, kg, Start date: 08/20/12 21:17:00, Stop date: 08/20/12 21:17:00 Depakote 2012-1 No Tatyana 500 mg, Memor ia 10-21 Jessica Route: IV, l 03:17: Jose David ONCE, Dosing Weight 72.727, kg, Start date: 08/20/12 21:17:00, Stop date: 08/20/12 21:17:00 Depakote ER 2011-10 Yes 500 mg, 1 M emoria 500 mg oral 1-17 tab, PO, l tablet, 22:02: BID, 30 Guadalupe extended 13 tab, release Substituti on Allowed, ERTAB Depakote ER 2011-10 Yes 500 mg, 1 M emoria 500 mg oral 1-17 tab, PO, l tablet, 22:02: BID, 30 Gu[place]upe extended 13 tab, release Substituti on Allowed, ERTAB Depakote ER 2011-10 Yes 500 mg, 1 M emoria 500 mg oral 1-17 tab, PO, l tablet, 22:02: BID, 30 Gu[place]upe extended 13 tab, release Substituti on Allowed, ERTAB Depakote ER 2011-10 Yes 500 mg, 1 M emoria 500 mg oral 1-17 tab, PO, l tablet, 22:02: BID, 30 Gu[place]upe extended 13 tab, release Substituti on Allowed, [...] BID Fycompa 10 Common MG MG MG [facility] BusPIRone BusPIRone No 1{table TID BusPIRone Common HCl 5 MG HCl 5 MG t} HCl 5 MG Spi [facility] Lantus 100 Lantus 100 No BID Lantus 100 Common UNIT/ML UNIT/ML UNIT/ML [facility] Citalopram Citalopram No 1{table QD Citalopram Common Hydrobromid Hydrobromid t} Hydrobromi Spirit e 20 MG e 20 MG de 20 MG [facility] Latuda 20 Latuda 20 No 1{table QD Latuda 20 Common MG MG t} MG [facility] Keppra Keppra No Keppra Common [facility] Fycompa 10 Fycompa 10 No BID Fycompa 10 MG MG MG Lantus 100 Lantus 100 No BID Lantus 100 UNIT/ML UNIT/ML UNIT/ML Eliquis 5 Eliquis 5 No 1{table BID Eliquis 5 MG MG t} MG Vital Signs Vital Name Observation Time Observation Value Comments Source height 2020-10-15 10:20:00 65 [in_i] [facility] weight 2020-10-15 10:20:00 180 [lb_av] [facility] temperature 2020-10-15 10:20:00 98.7 [degF] [facility] bmi 2020-10-15 10:20:00 29.95 kg/m2 [facility] blood pressure 2020-10-15 10:20:00 131 mm[Hg] Common [facility] - systolic [facility] blood pressure 2020-10-15 10:20:00 74 mm[Hg] Common Spirit - diastolic [facility] Weight 2012-08-20 21:07:00 [facility] Height 2012-08-20 21:07:00 165.10 cm [facility] Procedures This patient has no known procedures. Encounters Start End Encounter Admission Attending Care Care Encounter Source Date/Time Date/Time Type Type Clinicians Facility Department ID 2022-07-02 Outpatient [facility] [id number] [place] 04:48:12 [id number] [facility] 2021-10-29 Outpatient JSAMIN Allen [facility] [id number] Common 12:21:25 [facility] [address] [facility] 2021-10-[address] [facility] [id number] Common 12:19:51 [facility] [address] [facility] 2021-10-29 [facility] [id number] Common 12:16:00 [facility] [address] [facility] 2020-10-15 2020-10-15 OFFICE [facility] [id number] Co mmon 00:00:00 00:00:00 VISIT NEW Spir it PT LEVEL 3 [facility] 2020-09-25 2020-09-25 (TEL) [facility] [id number] Co mmon 00:00:00 00:00:00 [facility] 2012-08-20 2012-08-20 Emergency nullFlavo [facility] [id number] Memoria 15:06:00 23:52:00 r Medical 00 [facility] 2012-08-20 2012-08-20 Emergency nullFlavo [facility] [id number] Memoria 15:06:00 23:52:00 r Medical 00 [facility] Results Test Description Test Time Test Comments Results Result Comments Source CHEMISTRY 2012-08-20 22:46:00 Test Item Value Reference Range Interpretation Comme nts Valproic Acid Lvl (test code = Valproic Acid Lvl) 128 50-1 00 H [facility]QzvxfeaUFGQVFYJA0836-46-05 22:46:00 Test Item Value Reference Range Interpretation Comments Valproic Acid Lvl (test code = Valproic 128 50-100 H Acid Lvl) [facility] StationPotogfkNTTIMCSXH0465-55-54 22:46:00 Test Item Value Reference Range Interpretation Comments Valproic Acid Lvl (test code = Valproic 128 50-100 H Acid Lvl) [facility] StationUwhqwkdATHPDHSSF6508-41-30 22:46:00 Test Item Value Reference Range Interpretation Comments Valproic Acid Lvl (test code = Valproic 128 50-100 H Acid Lvl) [facility]USLUCSFB1842-97-75 22:42:00 Test Item Value Reference Range Interpretation Comments Hgb (test code = Hgb) 13.3 14.0-18.0 L [facility]DdnepyqWVHBBJUOVU5139-38-80 22:42:00 Test Item Value Reference Range Interpretation Comments Hct (test code = Hct) 39.7 42.0-54.0 L [facility] StationXcndzqhNHYIUBDOK7711-97-12 22:42:00 Test Item Value Reference Range Interpretation Comments BUN (test code = BUN) 13 7-22 N [facility] StationBkudbaqQACGEYHQB5829-34-54 22:42:00 Test Item Value Reference Range Interpretation Comments Glucose Lvl (test code = Glucose Lvl) 83 70-99 N [facility] StationLpobiiiQJVTTZDOR3432-15-29 22:42:00 Test Item Value Reference Range Interpretation Comments Calcium Lvl (test code = Calcium Lvl) 9.3 8.5-10.5 N [facility] StationEcftmuxMQTSPGEYM5099-35-47 22:42:00 Test Item Value Reference Range Interpretation Comments CO2 (test code = CO2) 31 24-32 N [facility] StationDerjuvlHGAOSGBQT1968-98-09 22:42:00 Test Item Value Reference Range Interpretation Comments AGAP (test code = AGAP) 11.0 10.0-20.0 N [facility] StationFhetnngQSGADKEOB0544-74-25 22:42:00 Test Item Value Reference Range Interpretation Comments eGFR (test code = eGFR) 131 [facility] HospitalCrhfqgpHHCJNUGPAA7869-26-42 22:42:00 Test Item Value Reference Range Interpretation Comments Lymphocytes # (test code = Lymphocytes 2.5 1.0-5.5 N #) [facility] StationXabmpioVZJUKCPAN3538-85-67 22:42:00 Test Item Value Reference Range Interpretation Comments Sodium Lvl (test code = Sodium Lvl) 140 135-145 N [facility] StationLgqewalZOTRURIKS2025-48-92 22:42:00 Test Item Value Reference Range Interpretation Comments Creatinine Lvl (test code = Creatinine 0.7 0.5-1.4 N Lvl) [facility] StationMydvqbzAFRQEFXUF7726-52-25 22:42:00 Test Item Value Reference Range Interpretation Comments Potassium Lvl (test code = Potassium 5.0 3.5-5.1 N Lvl) [facility] StationTdidtnwGLJMNUUJC3641-27-39 22:42:00 Test Item Value Reference Range Interpretation Comments Chloride Lvl (test code = Chloride Lvl) 103 95-109 N [facility] StationWkqxpjvIPWLDCTEA7367-37-21 22:42:00 Test Item Value Reference Range Interpretation Comments Phosphorus (test code = Phosphorus) 4.7 2.5-4.5 H [facility] StationBebusrbLARMSHNCD6414-76-49 22:42:00 Test Item Value Reference Range Interpretation Comments Magnesium Lvl (test code = Magnesium 1.8 1.8-2.4 N Lvl) [facility] HospitalMquipvdZLKGIYJCRB8706-63-16 22:42:00 Test Item Value Reference Range Interpretation Comments Basophils # (test code 0.1 See_Comment N [Aut omated message] The = Basophils #) system which generated this result tra nsmitted reference range : <=0.2. The reference r terri was not used to int erpret this result as normal/abnormal . [facility] HospitalYzduemnAJBORUAKMY1314-78-00 22:42:00 Test Item Value Reference Range Interpretation Comments Lymphocytes # (test code = Lymphocytes 2.5 1.0-5.5 N #) [facility] HospitalKcjqyyrJFCABYRGAV0980-10-29 22:42:00 Test Item Value Reference Range Interpretation Comments Basophils (test code = 0.7 See_Comment N [Aut omated message] The Basophils) system which ge nerated this result tra nsmitted reference range : <=1.0. The reference r terri was not used to int erpret this result as normal/abnormal . [facility] HospitalXsvdbhyWJVDRWQFXH9994-26-04 22:42:00 Test Item Value Reference Range Interpretation Comments Monocytes # (test code 0.4 See_Comment N [Aut omated message] The = Monocytes #) system which generated this result tra nsmitted reference range : <=0.8. The reference r terri was not used to int erpret this result as normal/abnormal . [facility] HospitalTkbonapZUVEEWARGA8572-83-60 22:42:00 Test Item Value Reference Range Interpretation Comments Basophils (test code = 0.7 See_Comment N [Aut omated message] The Basophils) system which ge nerated this result tra nsmitted reference range : <=1.0. The reference r terri was not used to int erpret this result as normal/abnormal . [facility] HospitalBcekbmjCGYMPVFIOU3597-55-33 22:42:00 Test Item Value Reference Range Interpretation Comments Segs-Bands # (test code = Segs-Bands #) 4.9 1.5-8.1 N [facility] HospitalQlcuoorERZRLSYPXJ6519-64-10 22:42:00 Test Item Value Reference Range Interpretation Comments Eosinophils (test code = 1.0 See_Comment N [A utomated message] The Eosinophils) system which ge nerated this result tra nsmitted reference range : <=4.0. The reference r terri was not used to int erpret this result as normal/abnormal . [facility] HospitalIswxjcjRXYWYNIRQP3533-62-60 22:42:00 Test Item Value Reference Range Interpretation Comments Eosinophils # (test code 0.1 See_Comment N [A utomated message] The = Eosinophils #) system whic h generated this result tra nsmitted reference range : <=0.5. The reference r terri was not used to int erpret this result as normal/abnormal . [facility] HospitalRpmcpbiFPHLUUAMDA0758-32-81 22:42:00 Test Item Value Reference Range Interpretation Comments Monocytes (test code = Monocytes) 5.0 2.0-12.0 N [facility] HospitalOzeacusONOWWBQPYQ3056-31-09 22:42:00 Test Item Value Reference Range Interpretation Comments Lymphocytes (test code = Lymphocytes) 31.3 20.0-40.0 N [facility] HospitalToovommUETYAGCCLQ6032-86-44 22:42:00 Test Item Value Reference Range Interpretation Comments Segs (test code = Segs) 62.0 45.0-75.0 N [facility] HospitalGomifyfWITMYGNZEP1341-55-07 22:42:00 Test Item Value Reference Range Interpretation Comments MPV (test code = MPV) 9.0 7.4-10.4 N [facility] HospitalAcfdvblDMYPKMRHXO0753-17-09 22:42:00 Test Item Value Reference Range Interpretation Comments MCH (test code = MCH) 30.3 pg 27.0-31.0 N [facility] HospitalSsckqlbYCGTBAACVH7817-54-76 22:42:00 Test Item Value Reference Range Interpretation Comments MCHC (test code = MCHC) 33.5 32.0-36.0 N [facility] HospitalOjiytfaBEQSSXXJSX0006-12-35 22:42:00 Test Item Value Reference Range Interpretation Comments Platelet (test code = Platelet) 204 133-450 N [facility] HospitalZhhwkffFROEYDRYUN5458-30-13 22:42:00 Test Item Value Reference Range Interpretation Comments RDW (test code = RDW) 12.0 11.5-14.5 N [facility] HospitalYzyaykwIQMCDOYNOL0105-58-07 22:42:00 Test Item Value Reference Range Interpretation Comments RBC (test code = RBC) 4.38 4.70-6.10 L [facility] HospitalRtetjfnYQCLYNAWVQ3682-33-16 22:42:00 Test Item Value Reference Range Interpretation Comments WBC (test code = WBC) 8.0 3.7-10.4 N [facility] HospitalZynqvxhYULGYBTZLY2440-77-51 22:42:00 Test Item Value Reference Range Interpretation Comments MCV (test code = MCV) 90.5 80.0-94.0 N [facility] HospitalUnmrhteUXMLVASBWP1788-31-12 22:42:00 Test Item Value Reference Range Interpretation Comments Hgb (test code = Hgb) 13.3 14.0-18.0 L [facility] HospitalFhcjaliEFHFMLQHCQ7400-94-32 22:42:00 Test Item Value Reference Range Interpretation Comments Hct (test code = Hct) 39.7 42.0-54.0 L [facility] StationOsoljkvRVXMSILHW2792-96-40 22:42:00 Test Item Value Reference Range Interpretation Comments BUN (test code = BUN) 13 7-22 N [facility] HospitalBhelixqTKDUVCIEAJ3396-33-20 22:42:00 Test Item Value Reference Range Interpretation Comments Monocytes # (test code 0.4 See_Comment N [Aut omated message] The = Monocytes #) system which generated this result tra nsmitted reference range : <=0.8. The reference r terir was not used to int erpret this result as normal/abnormal . [facility] StationFoyursjIPVYUKKKD8047-18-10 22:42:00 Test Item Value Reference Range Interpretation Comments Glucose Lvl (test code = Glucose Lvl) 83 70-99 N [facility] StationChohrbeMMYOMKYRK6737-44-10 22:42:00 Test Item Value Reference Range Interpretation Comments Calcium Lvl (test code = Calcium Lvl) 9.3 8.5-10.5 N [facility] StationGxgdksxHWWJPYTQT3986-85-08 22:42:00 Test Item Value Reference Range Interpretation Comments CO2 (test code = CO2) 31 24-32 N [facility] StationZrichtpFHVNQCSOF1909-20-11 22:42:00 Test Item Value Reference Range Interpretation Comments AGAP (test code = AGAP) 11.0 10.0-20.0 N [facility] StationUgvyhhcTILNLFBAS5972-31-16 22:42:00 Test Item Value Reference Range Interpretation Comments eGFR (test code = eGFR) 131 [facility] StationMxxhevqZHQGXSEVJ2492-83-91 22:42:00 Test Item Value Reference Range Interpretation Comments Sodium Lvl (test code = Sodium Lvl) 140 135-145 N [facility] StationSdoafroWCGTYAYMU8961-48-55 22:42:00 Test Item Value Reference Range Interpretation Comments Creatinine Lvl (test code = Creatinine 0.7 0.5-1.4 N Lvl) [facility] StationBdvkwkzVSHFSJHEL5982-84-32 22:42:00 Test Item Value Reference Range Interpretation Comments Potassium Lvl (test code = Potassium 5.0 3.5-5.1 N Lvl) [facility] StationAimjnlbQZZJVKASP4087-55-27 22:42:00 Test Item Value Reference Range Interpretation Comments Chloride Lvl (test code = Chloride Lvl) 103 95-109 N [facility] HospitalJdmahreDFVZGVTUAZ2204-61-81 22:42:00 Test Item Value Reference Range Interpretation Comments Segs-Bands # (test code = Segs-Bands #) 4.9 1.5-8.1 N [facility] StationLdiatbdRBCMUSRUW2671-05-68 22:42:00 Test Item Value Reference Range Interpretation Comments BUN (test code = BUN) 13 7-22 N [facility] StationGbdtguyCIBOGALPL7596-62-26 22:42:00 Test Item Value Reference Range Interpretation Comments Glucose Lvl (test code = Glucose Lvl) 83 70-99 N [facility] StationTaobmyjVQZEMCPJO5502-71-45 22:42:00 Test Item Value Reference Range Interpretation Comments Calcium Lvl (test code = Calcium Lvl) 9.3 8.5-10.5 N [facility] StationZkbiyhwNPJKRWZTQ8178-78-12 22:42:00 Test Item Value Reference Range Interpretation Comments CO2 (test code = CO2) 31 24-32 N [facility] StationQynnzgxLAAJOKNED0246-46-96 22:42:00 Test Item Value Reference Range Interpretation Comments AGAP (test code = AGAP) 11.0 10.0-20.0 N [facility] StationSbrblsoXNIZPECKM9787-45-55 22:42:00 Test Item Value Reference Range Interpretation Comments eGFR (test code = eGFR) 131 [facility] StationHwfilkcZBCDHMMXZ6486-99-89 22:42:00 Test Item Value Reference Range Interpretation Comments Sodium Lvl (test code = Sodium Lvl) 140 135-145 N [facility] StationKqhppjfPRJSMWIYN2171-24-11 22:42:00 Test Item Value Reference Range Interpretation Comments Creatinine Lvl (test code = Creatinine 0.7 0.5-1.4 N Lvl) [facility] StationEvgdeohVUNOZOLMT3929-02-66 22:42:00 Test Item Value Reference Range Interpretation Comments Potassium Lvl (test code = Potassium 5.0 3.5-5.1 N Lvl) [facility] StationHcfxpbtQRWICZTBT3905-54-06 22:42:00 Test Item Value Reference Range Interpretation Comments Chloride Lvl (test code = Chloride Lvl) 103 95-109 N [facility] StationWbdhrsiRHAGXLQWV7840-90-16 22:42:00 Test Item Value Reference Range Interpretation Comments Phosphorus (test code = Phosphorus) 4.7 2.5-4.5 H [facility] StationHssgfrzGMIBCYZTO8324-38-82 22:42:00 Test Item Value Reference Range Interpretation Comments Magnesium Lvl (test code = Magnesium 1.8 1.8-2.4 N Lvl) [facility] HospitalFyrafsaQEVNXMHNIV1435-56-43 22:42:00 Test Item Value Reference Range Interpretation Comments Basophils # (test code 0.1 See_Comment N [Aut omated message] The = Basophils #) system which generated this result tra nsmitted reference range : <=0.2. The reference r terri was not used to int erpret this result as normal/abnormal . [facility] HospitalFwnlcjlCKVTWJFJBO3717-01-08 22:42:00 Test Item Value Reference Range Interpretation Comments Lymphocytes # (test code = Lymphocytes 2.5 1.0-5.5 N #) [facility] HospitalKsftuquVJDIVDGWXV9664-39-02 22:42:00 Test Item Value Reference Range Interpretation Comments Basophils (test code = 0.7 See_Comment N [Aut omated message] The Basophils) system which ge nerated this result tra nsmitted reference range : <=1.0. The reference r terri was not used to int erpret this result as normal/abnormal . [facility] HospitalFlgrccbIFRSYOJPSK1003-76-49 22:42:00 Test Item Value Reference Range Interpretation Comments Monocytes # (test code 0.4 See_Comment N [Aut omated message] The = Monocytes #) system which generated this result tra nsmitted reference range : <=0.8. The reference r terri was not used to int erpret this result as normal/abnormal . [facility] HospitalWwltzoyINPIPIOHKP4417-16-24 22:42:00 Test Item Value Reference Range Interpretation Comments Segs-Bands # (test code = Segs-Bands #) 4.9 1.5-8.1 N [facility] HospitalRumcmcqWOEZKNPQRD5783-82-44 22:42:00 Test Item Value Reference Range Interpretation Comments Eosinophils (test code = 1.0 See_Comment N [A utomated message] The Eosinophils) system which ge nerated this result tra nsmitted reference range : <=4.0. The reference r terri was not used to int erpret this result as normal/abnormal . [facility] HospitalCpqkojaRZGPWFEXML6876-63-34 22:42:00 Test Item Value Reference Range Interpretation Comments Eosinophils # (test code 0.1 See_Comment N [A utomated message] The = Eosinophils #) system whic h generated this result tra nsmitted reference range : <=0.5. The reference r terri was not used to int erpret this result as normal/abnormal . [facility] HospitalMtdtspnVUJLJXUFJB1507-10-51 22:42:00 Test Item Value Reference Range Interpretation Comments Monocytes (test code = Monocytes) 5.0 2.0-12.0 N [facility] HospitalGmaozuwIRLPOFGKFX6096-91-61 22:42:00 Test Item Value Reference Range Interpretation Comments Eosinophils (test code = 1.0 See_Comment N [A utomated message] The Eosinophils) system which ge nerated this result tra nsmitted reference range : <=4.0. The reference r terri was not used to int erpret this result as normal/abnormal . [facility] HospitalRqzonavJXQHVFWDBF1202-68-43 22:42:00 Test Item Value Reference Range Interpretation Comments Lymphocytes (test code = Lymphocytes) 31.3 20.0-40.0 N [facility] HospitalYsskvbuDXHSFYHDZA1327-94-05 22:42:00 Test Item Value Reference Range Interpretation Comments Segs (test code = Segs) 62.0 45.0-75.0 N [facility] HospitalOtqyfleUORVXPIBTZ2945-68-61 22:42:00 Test Item Value Reference Range Interpretation Comments MPV (test code = MPV) 9.0 7.4-10.4 N [facility] HospitalAhsscuzWNSSTFIGHX3172-03-58 22:42:00 Test Item Value Reference Range Interpretation Comments MCH (test code = MCH) 30.3 pg 27.0-31.0 N [facility] HospitalPupruztTAKKGGPTCY0958-06-45 22:42:00 Test Item Value Reference Range Interpretation Comments MCHC (test code = MCHC) 33.5 32.0-36.0 N [facility] HospitalRsgqkivYRHDUIQLIE9806-83-56 22:42:00 Test Item Value Reference Range Interpretation Comments Platelet (test code = Platelet) 204 133-450 N [facility] HospitalUmjgccaIYZJQYZCDI1013-25-02 22:42:00 Test Item Value Reference Range Interpretation Comments RDW (test code = RDW) 12.0 11.5-14.5 N [facility] HospitalIgqouhmMMCPXTUENR5331-36-96 22:42:00 Test Item Value Reference Range Interpretation Comments RBC (test code = RBC) 4.38 4.70-6.10 L [facility] HospitalJkwsledFFKQYLBEBY9502-33-36 22:42:00 Test Item Value Reference Range Interpretation Comments WBC (test code = WBC) 8.0 3.7-10.4 N [facility] HospitalZcvydvkALAOWSGUWF7696-55-47 22:42:00 Test Item Value Reference Range Interpretation Comments MCV (test code = MCV) 90.5 80.0-94.0 N [facility] HospitalPytywakGJXQLICCIH3057-82-29 22:42:00 Test Item Value Reference Range Interpretation Comments Hgb (test code = Hgb) 13.3 14.0-18.0 L [facility] HospitalDignijeZTMWHAMTIZ9776-03-12 22:42:00 Test Item Value Reference Range Interpretation Comments Hct (test code = Hct) 39.7 42.0-54.0 L [facility] HospitalXoeknvkCNGKPUFRVJ4067-99-32 22:42:00 Test Item Value Reference Range Interpretation Comments Eosinophils # (test code 0.1 See_Comment N [A utomated message] The = Eosinophils #) system whic h generated this result tra nsmitted reference range : <=0.5. The reference r terri was not used to int erpret this result as normal/abnormal . [facility] HospitalKwresefCZTIOGGVEP1663-40-29 22:42:00 Test Item Value Reference Range Interpretation Comments Monocytes (test code = Monocytes) 5.0 2.0-12.0 N [facility] StationTyzmkovFOICESACA3833-63-15 22:42:00 Test Item Value Reference Range Interpretation Comments Glucose Lvl (test code = Glucose Lvl) 83 70-99 N [facility] HospitalNiokeyqACCNXGWICT9299-45-49 22:42:00 Test Item Value Reference Range Interpretation Comments Lymphocytes (test code = Lymphocytes) 31.3 20.0-40.0 N [facility] HospitalBeqslamWIAYSBHKAP9120-26-80 22:42:00 Test Item Value Reference Range Interpretation Comments Segs (test code = Segs) 62.0 45.0-75.0 N [facility] HospitalOtukrwwANNUQWMWNZ4921-50-33 22:42:00 Test Item Value Reference Range Interpretation Comments MPV (test code = MPV) 9.0 7.4-10.4 N [facility] HospitalXgkoqmhJXTUYINAVV4216-14-04 22:42:00 Test Item Value Reference Range Interpretation Comments MCH (test code = MCH) 30.3 pg 27.0-31.0 N [facility] StationTsumujeEODWZOCZE5574-94-38 22:42:00 Test Item Value Reference Range Interpretation Comments BUN (test code = BUN) 13 7-22 N [facility] HospitalFeyepplMEGLEZRFQZ6252-50-30 22:42:00 Test Item Value Reference Range Interpretation Comments MCHC (test code = MCHC) 33.5 32.0-36.0 N [facility] HospitalUbcgyfvUYUDZZIRCJ0193-15-91 22:42:00 Test Item Value Reference Range Interpretation Comments Platelet (test code = Platelet) 204 133-450 N [facility] HospitalBuftvacSWJTLLNYCY4977-22-43 22:42:00 Test Item Value Reference Range Interpretation Comments RDW (test code = RDW) 12.0 11.5-14.5 N [facility] HospitalOkmnfguSCVCMUUZOU4729-82-17 22:42:00 Test Item Value Reference Range Interpretation Comments RBC (test code = RBC) 4.38 4.70-6.10 L [facility] HospitalDujkultLLJUNCSEHW9462-82-68 22:42:00 Test Item Value Reference Range Interpretation Comments WBC (test code = WBC) 8.0 3.7-10.4 N [facility] HospitalGgauiseJMPBYZQSHY6485-52-27 22:42:00 Test Item Value Reference Range Interpretation Comments MCV (test code = MCV) 90.5 80.0-94.0 N [facility] StationOpshkmgLAJEIAKCY9004-41-82 22:42:00 Test Item Value Reference Range Interpretation Comments Phosphorus (test code = Phosphorus) 4.7 2.5-4.5 H [facility] StationNelgsiuOPBPSYXGV7772-52-11 22:42:00 Test Item Value Reference Range Interpretation Comments Calcium Lvl (test code = Calcium Lvl) 9.3 8.5-10.5 N [facility] HospitalYqsfdpeFRGVFKUVNA1306-77-05 22:42:00 Test Item Value Reference Range Interpretation Comments Hgb (test code = Hgb) 13.3 14.0-18.0 L [facility] HospitalOyzaswqFVLLLTNULC5886-17-21 22:42:00 Test Item Value Reference Range Interpretation Comments Hct (test code = Hct) 39.7 42.0-54.0 L [facility] StationBmttjlmVFUVPBMQV3851-44-55 22:42:00 Test Item Value Reference Range Interpretation Comments Magnesium Lvl (test code = Magnesium 1.8 1.8-2.4 N Lvl) [facility] StationXjuweqiMYDDZAUIO0396-34-57 22:42:00 Test Item Value Reference Range Interpretation Comments CO2 (test code = CO2) 31 24-32 N [facility] StationEdtahlnZPYIDVKKW9688-56-88 22:42:00 Test Item Value Reference Range Interpretation Comments AGAP (test code = AGAP) 11.0 10.0-20.0 N [facility] StationZnogshhLRQXJHNQO9488-48-58 22:42:00 Test Item Value Reference Range Interpretation Comments eGFR (test code = eGFR) 131 [facility] StationAjpkfyzBCYAUTYPW8775-75-80 22:42:00 Test Item Value Reference Range Interpretation Comments Sodium Lvl (test code = Sodium Lvl) 140 135-145 N [facility] StationQrwegwtDBLULGOMR1268-44-23 22:42:00 Test Item Value Reference Range Interpretation Comments Creatinine Lvl (test code = Creatinine 0.7 0.5-1.4 N Lvl) [facility] StationYvcmkajZZEZTJPLX7843-56-98 22:42:00 Test Item Value Reference Range Interpretation Comments Potassium Lvl (test code = Potassium 5.0 3.5-5.1 N Lvl) [facility] StationVlxplsoKMFSNFJSV3520-21-88 22:42:00 Test Item Value Reference Range Interpretation Comments Chloride Lvl (test code = Chloride Lvl) 103 95-109 N [facility] StationNklvzzsPRYSRJFDF2710-71-11 22:42:00 Test Item Value Reference Range Interpretation Comments Phosphorus (test code = Phosphorus) 4.7 2.5-4.5 H [facility] HospitalGswrnaeSIEWCIVVCF3256-98-81 22:42:00 Test Item Value Reference Range Interpretation Comments Basophils # (test code 0.1 See_Comment N [Aut omated message] The = Basophils #) system which generated this result tra nsmitted reference range : <=0.2. The reference r terri was not used to int erpret this result as normal/abnormal . [facility] StationJvvqqytXEELPTOWZ4126-09-23 22:42:00 Test Item Value Reference Range Interpretation Comments Magnesium Lvl (test code = Magnesium 1.8 1.8-2.4 N Lvl) [facility] HospitalZrfibtbQKDKEVMJQW2896-69-43 22:42:00 Test Item Value Reference Range Interpretation Comments Basophils # (test code 0.1 See_Comment N [Aut omated message] The = Basophils #) system which generated this result tra nsmitted reference range : <=0.2. The reference r terri was not used to int erpret this result as normal/abnormal . [facility] HospitalMyvbakoHOEYWGHUXC2534-89-11 22:42:00 Test Item Value Reference Range Interpretation Comments Lymphocytes # (test code = Lymphocytes 2.5 1.0-5.5 N #) [facility] HospitalBrlhiyxQCRYDXFIFG2760-58-90 22:42:00 Test Item Value Reference Range Interpretation Comments Basophils (test code = 0.7 See_Comment N [Aut omated message] The Basophils) system which ge nerated this result tra nsmitted reference range : <=1.0. The reference r terri was not used to int erpret this result as normal/abnormal . [facility] HospitalLcfupwyLXOHISSJOE7698-34-95 22:42:00 Test Item Value Reference Range Interpretation Comments Monocytes # (test code 0.4 See_Comment N [Aut omated message] The = Monocytes #) system which generated this result tra nsmitted reference range : <=0.8. The reference r terri was not used to int erpret this result as normal/abnormal . [facility] HospitalGbbqdgyNRXBVXZHYG4083-50-45 22:42:00 Test Item Value Reference Range Interpretation Comments Segs-Bands # (test code = Segs-Bands #) 4.9 1.5-8.1 N [facility] HospitalHttdussTJDUVVCDKS0739-05-53 22:42:00 Test Item Value Reference Range Interpretation Comments Eosinophils (test code = 1.0 See_Comment N [A utomated message] The Eosinophils) system which ge nerated this result tra nsmitted reference range : <=4.0. The reference r terri was not used to int erpret this result as normal/abnormal . [facility] HospitalZnvuwmhVVFGGXBFEF3400-23-99 22:42:00 Test Item Value Reference Range Interpretation Comments Eosinophils # (test code 0.1 See_Comment N [A utomated message] The = Eosinophils #) system whic h generated this result tra nsmitted reference range : <=0.5. The reference r terri was not used to int erpret this result as normal/abnormal . [facility] HospitalZyojjxrPKMWXDHDZS2051-56-81 22:42:00 Test Item Value Reference Range Interpretation Comments Monocytes (test code = Monocytes) 5.0 2.0-12.0 N [facility] HospitalNingjpcYTSTYXKHMN9874-80-78 22:42:00 Test Item Value Reference Range Interpretation Comments Lymphocytes (test code = Lymphocytes) 31.3 20.0-40.0 N [facility] HospitalOamirqvXDPPHZUGZX7680-82-38 22:42:00 Test Item Value Reference Range Interpretation Comments Segs (test code = Segs) 62.0 45.0-75.0 N [facility] HospitalSvgtiwkCJGUPETLIT8876-41-16 22:42:00 Test Item Value Reference Range Interpretation Comments MPV (test code = MPV) 9.0 7.4-10.4 N [facility] HospitalVdopasuLMQXIKAURC1269-89-02 22:42:00 Test Item Value Reference Range Interpretation Comments MCH (test code = MCH) 30.3 pg 27.0-31.0 N [facility] HospitalCsupnasFCPYELXPYC3435-44-09 22:42:00 Test Item Value Reference Range Interpretation Comments MCHC (test code = MCHC) 33.5 32.0-36.0 N [facility] HospitalXhycxccHUZIGNGHSI2525-43-56 22:42:00 Test Item Value Reference Range Interpretation Comments Platelet (test code = Platelet) 204 133-450 N [facility] HospitalIrefypjNBVCZTMIXJ5591-22-74 22:42:00 Test Item Value Reference Range Interpretation Comments RDW (test code = RDW) 12.0 11.5-14.5 N [facility] HospitalWbtcxzpKDLFKJNZUM8098-43-86 22:42:00 Test Item Value Reference Range Interpretation Comments RBC (test code = RBC) 4.38 4.70-6.10 L [facility] HospitalOeimumgUDQIHLUJIZ1288-36-93 22:42:00 Test Item Value Reference Range Interpretation Comments WBC (test code = WBC) 8.0 3.7-10.4 N [facility] HospitalUgevazbLBDRNSPVYK5473-15-22 22:42:00 Test Item Value Reference Range Interpretation Comments MCV (test code = MCV) 90.5 80.0-94.0 N [facility] GLUCOSE RIWTFEI7672-37-65 21:59:00 Test Item Value Reference Range Interpretation Comments Gluc POC Lifscn (test code = Gluc POC 86 70-99 N Lifscn) [facility] GLUCOSE RRLGLHW5184-06-13 21:59:00 Test Item Value Reference Range Interpretation Comments Gluc POC Lifscn (test code = Gluc POC 86 70-99 N [place]) [facility] GLUCOSE [id number] 21:59:00 Test Item Value Reference Range Interpretation Comments Gluc POC Lifscn (test code = Gluc POC 86 70-99 N [place]) [facility] GLUCOSE [id number] 21:59:00 Test Item Value Reference Range Interpretation Comments Gluc POC Lifscn (test code = Gluc POC 86 70-99 N Lif[place]n) [facility]
--- NOTE | 2022-11-06 11:52 | RAD REPORT ---
EXAM DESCRIPTION: CT - Head Brain Wo Cont - 11/06/2022 11:07 am CLINICAL HISTORY: right arm weakness/numbess Headache, drowsiness COMPARISON: Head Brain Wo Cont dated 01/14/2022; Head Brain Wo Cont dated 12/03/2021 TECHNIQUE: All CT scans are performed using dose optimization technique as appropriate and may inclu de automated exposure control or mA/KV adjustment according to patient size. 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 Old small cerebellar infarcts suspected. 3 cm polyp versus mucous retention cyst left maxillary antrum. The calvarium is intact. IMPRESSION: No acute intracranial abnormality.
[2022-11-06 12:10] LABS: SARS-COV-2 RT PCR NEGATIVE (NEGATIVE)
[2022-11-06 12:47] LABS: Absolute Lymphocytes (CBC) 2.2 K/uL (0.7-4.9); Hematocrit 44.9 % (39.6-49.0); Lymphocytes % 26.2 % (15.3-44.8); MCV 83.9 fL (80-100); MPV 7.9 fL (7.6-11.3); RBC Red Blood Cell Count 5.35 M/uL (4.33-5.43)
[2022-11-06 13:03] LABS: Potassium 3.6 mmol/L (3.5-5.1)
--- NOTE | 2022-11-06 14:04 | EDPHYS ---
Physician Documentation [facility] Name: Shan Faye Age: 37 yrs Sex: Male : 1985 Arrival Date: 11/06/2022 Time: 10:37 Bed 5 Private MD: Alejandro [facility] ED Physician Jose Eduardo Momin HPI: 11/06 11:18 This 37 yrs old Male presents to ER via Ambulatory with complaints of Numbness sb4 Of Arm - right, Cough, Congestion, Nausea/Vomiting. 11:18 Patient is a 37-year-old male with history of seizure disorder, mental retardation, sb4 previous CVA who presented with complaints of right numbness and weakness of his right arm and leg. Patient's mother reports that this does happen intermittently but typically resolves. She states it has been occurring for 2 days now and has not improved. She also states that he has been having cough and congestion. Reports a seizure yesterday, which is abnormal for him. Reports compliance with medications.. Historical: - Allergies: 10:45 No Known Allergies; ko1 - Home Meds: 10:45 Keppra 750 mg Oral tab 2 tabs 2 times per day [Active]; ko1 - PMHx: 10:45 brain disorder; CVA; Seizure; ko1 - PSHx: 10:45 Cholecystectomy; ko1 - Immunization history:: Adult Immunizations up to date. - Social history:: Smoking status: Patient denies any tobacco usage or history of. ROS: 11:18 Constitutional: Negative for fever, chills, and weight loss, Cardiovascular: Negative sb4 for chest pain, palpitations, and edema, Back: Negative for injury and pain, MS/Extremity: Negative for injury and deformity, Skin: Negative for injury, rash, and discoloration. 11:18 Psych: Negative for depression, anxiety, suicide ideation, homicidal ideation, and hallucinations. 11:18 Respiratory: Positive for cough, with no reported sputum, Congestion. 11:18 Abdomen/GI: Positive for nausea, Negative for abdominal pain, vomiting, diarrhea. 11:18 Neuro: Positive for numbness, weakness, Right face, arm, leg weakness/numbness. 11:18 Psych: Exam: 11:21 Cardiovascular: Regular rate and rhythm with a normal S1 and S2. Respiratory: No sb4 increased work of breathing, no retractions or nasal flaring. Abdomen/GI: Soft, non-tender, no distension. Skin: Warm, dry with normal turgor. Normal color with no rashes, no lesions, and no evidence of cellulitis. 11:21 Constitutional: The patient appears in no acute distress. 11:21 Head/face: 11:21 Neuro: Orientation: is normal, appropriate for stated age, no acute changes, Mentation: is normal, appropriate for stated age, no acute changes, responsive to voice able to follow commands, Motor: Patient only able to move left sided extremities., Sensation: numbness, that is mild, Gait: not tested. seizure activity, is not displayed by the patient. Vital Signs: 10:42 BP 135 / 102; Pulse 116; Resp 18; Temp 97.7; Pulse Ox 96% on R/A; Weight 89.81 kg; ko1 Height 5 ft. 5 in. (165.10 cm); Pain 0/10; 14:02 BP 145 / 105; Pulse 93; Resp 15; Pulse Ox 99% on R/A; Pain 0/10; hb 10:42 Body Mass Index 32.95 (89.81 kg, 165.10 cm) ko1 NIH Stroke Scale Scores: 14:02 NIHSS Score: 0 hb MDM: 10:52 Patient medically screened. sb4 11:21 Data reviewed: vital signs, nurses notes. sb4 14:00 Consideration of Admission/Observation Escalation of care including sb4 admission/observation considered. Management of patient was discussed with the following: Cafe Worker: Dr. Arreola, who said to rule out infection, and if CT brain was negative patient is okay to be discharged.. Historians other than the Patient: Parent: Mother. Care significantly affected by the following chronic conditions: Obesity, Epilepsy, history of CVA. 14:00 Data reviewed: lab test result(s), radiologic studies, plain films, and as a result, I sb4 will discharge patient. 11/06 10:52 Order name: COVID-19/FLU A+B; Complete Time: 12:11 sb4 11/06 12:20 Order name: Basic Metabolic Panel; Complete Time: 13:08 sb4 11/06 12:20 Order name: CBC with Diff; Complete Time: 13:08 sb4 11/06 12:20 Order name: High Sensitivity Troponin; Complete Time: 13:08 sb4 11/06 12:20 Order name: Protime (+inr); Complete Time: 13:08 sb4 11/06 12:20 Order name: Ptt, Activated; Complete Time: 13:08 sb4 11/06 10:52 Order name: Head Brain Wo Cont CT; Complete Time: 11:54 sb4 11/06 12:20 Order name: Stroke CXR 1 View; Complete Time: 14:17 sb4 11/06 12:20 Order name: Accucheck; Complete Time: 13:06 sb4 11/06 12:20 Order name: Cardiac monitoring; Complete Time: 12:48 sb4 11/06 12:20 Order name: EKG - Nurse/Tech; Complete Time: 12:48 sb4 11/06 12:20 Order name: IV Saline Lock; Complete Time: 12:48 sb4 11/06 12:20 Order name: Labs collected and sent; Complete Time: 12:48 sb4 11/06 12:20 Order name: NPO; Complete Time: 12:48 sb4 11/06 12:20 Order name: O2 Per Protocol; Complete Time: 12:48 sb4 11/06 12:20 Order name: O2 Sat Monitoring; Complete Time: 12:48 sb4 11/06 12:20 Order name: Stroke Swallow Screen; Complete Time: 14:02 sb4 Administered Medications: No medications were administered Disposition: 11/07 07:14 Co-signature as Attending Physician, Jose Eduardo Momin MD I reviewed the patient's care rn provided by the Advanced Practice Provider and agree with the diagnosis and treatment plan. Disposition Summary: 11/06/22 14:03 Discharge Ordered Location: Home sb4 Problem: new sb4 Symptoms: are resolved sb4 Condition: Stable sb4 Diagnosis - Paresthesia of skin sb4 - Weakness sb4 Followup: sb4 - With: Satinder Arreola MD - When: 2 - 3 days - Reason: Recheck today's complaints, Continuance of care, Re-evaluation by your physician Forms: - Medication Reconciliation Form sb4 - Thank You Letter sb4 - Antibiotic Education sb4 - Prescription Opioid Use sb4 NIH Stroke Scale - NIH Stroke Score Date: 11/06/2022 Time: 14:02 Total Score = 0 1a. Level of Consciousness (LOC) - 0(Alert) 1b. Level of Consciousness (LOC) (Month \T\ Age) - 0(Both) 1c. LOC Commands (Open \T\ Closes Eyes/Assistant Professor In Family Studies) - 0(Both) 2. Best Gaze (Lateral Gaze Paresis) - 0(Normal) 3. Visual Field Loss - 0(No visual loss) 4. Facial Palsy - 0(Normal) 5a. Left Arm: Motor (10-second hold) - 0(No drift) 5b. Right Arm: Motor (10-second hold) - 0(No drift) 6a. Left Leg: Motor (5-second hold - always test supine) - 0(No drift) 6b. Right Leg: Motor (5-second hold - always test supine) - 0(No drift) 7. Limb Ataxia (finger/nose \T\ heel/jennings - test with eyes open) - 0(Absent) 8. Sensory Loss (pinprick arms/legs/face) - 0(Normal) 9. Best Language: Aphasia (description/naming/reading) - 0(No aphasia) 10. Dysarthria (speech clarity - read or repeat words) - 0(Normal) 11. Extinction and Inattention (visual/tactile/auditory/spatial/personal) - 0(No abnormality) Initials: hb Signatures: Dispatcher [employer] Jose Eduardo Davis MD MD rn Oliver, Kathy, RN RN [email or web address] Na Vizcarra PA-C PA-C sb4
--- NOTE | 2022-11-06 14:04 | ER ---
Nurse's Notes [facility] Name: Shan Faye Age: 37 yrs Sex: Male : 1985 Arrival Date: 11/06/2022 Time: 10:37 Bed 5 Private MD: Jethro Allen Diagnosis: Paresthesia of skin;Weakness Presentation: 11/06 10:42 Chief complaint: Patient states: my right arm gets paralyzed at times, it comes and ko1 goes. Paula had some congestion, coughing, no fever. Coronavirus screen: At this time, the client does not indicate any symptoms associated with coronavirus-19. Ebola Screen: No symptoms or risks identified at this time. Initial Sepsis Screen: Does the patient meet any 2 criteria? No. Patient's initial sepsis screen is negative. Does the patient have a suspected source of infection?. Risk Assessment: Do you want to hurt yourself or someone else? Patient reports no desire to harm self or others. Onset of symptoms was November 06, 2022. 10:42 Method Of Arrival: Ambulatory ko1 10:42 Acuity: PAULINE 3 ko1 Triage Assessment: 10:45 General: Appears in no apparent distress. comfortable, Behavior is calm, cooperative, ko1 appropriate for age. Pain: Denies pain. Respiratory: Breath sounds are clear bilaterally. Historical: - Allergies: 10:45 No Known Allergies; ko1 - Home Meds: 10:45 Keppra 750 mg Oral tab 2 tabs 2 times per day [Active]; ko1 - PMHx: 10:45 brain disorder; CVA; Seizure; ko1 - PSHx: 10:45 Cholecystectomy; ko1 - Immunization history:: Adult Immunizations up to date. - Social history:: Smoking status: Patient denies any tobacco usage or history of. Screenin:56 [facility] ED Fall Risk Assessment (Adult) Score/Fall Risk Level 0 - 2 = Low Risk hb Oriented to surroundings, Maintained a safe environment, Educated pt \T\ family on fall prevention, incl call for assistance when getting out of bed. Abuse screen: Denies threats or abuse. Denies injuries from another. Nutritional screening: No deficits noted. Tuberculosis screening: No symptoms or risk factors identified. Assessment: 12:48 General: Appears in no apparent distress. Behavior is calm, cooperative. Pain: Denies hb pain. Neuro: Level of Consciousness is awake, alert, obeys commands, Oriented to person, place, time, situation. Cardiovascular: Patient's skin is warm and dry. Respiratory: Respiratory effort is even, unlabored, Respiratory pattern is regular, symmetrical. GI: No signs and/or symptoms were reported involving the gastrointestinal system. : No signs and/or symptoms were reported regarding the genitourinary system. EENT: No signs and/or symptoms were reported regarding the EENT system. Derm: Skin is pink, warm \T\ dry. Musculoskeletal: No signs and/or symptoms reported regarding the musculoskeletal system. 13:55 Reassessment: Patient appears in no apparent distress at this time. Patient and/or hb family updated on plan of care and expected duration. Pain level reassessed. Patient is alert, oriented x 3, equal unlabored respirations, skin warm/dry/pink. Vital Signs: 10:42 BP 135 / 102; Pulse 116; Resp 18; Temp 97.7; Pulse Ox 96% on R/A; Weight 89.81 kg; ko1 Height 5 ft. 5 in. (165.10 cm); Pain 0/10; 14:02 BP 145 / 105; Pulse 93; Resp 15; Pulse Ox 99% on R/A; Pain 0/10; hb 10:42 Body Mass Index 32.95 (89.81 kg, 165.10 cm) ko1 NIH Stroke Scale Scores: 14:02 NIHSS Score: 0 hb ED Course: 10:37 Patient arrived in ED. am2 10:37 Jethro Allen DO is Private Physician. am2 10:43 Na Vizcarra PA-C is PHCP. sb4 10:43 Jose Eduardo Momin MD is Attending Physician. sb4 10:45 Triage completed. ko1 10:45 Arm band placed on left wrist. Patient placed in waiting room, Patient notified of wait ko1 time. 11:02 COVID-19/FLU A+B Sent. ko1 11:07 Head Brain Wo Cont CT In Process Unspecified. EDMS 11:15 Patient has correct armband on for positive identification. hb 12:31 Maria Justice, RN is Primary Nurse. hb 12:45 Inserted saline lock: 20 gauge in right antecubital area, using aseptic technique. hb Blood collected. 14:02 Satinder Arreola MD is Referral Physician. sb4 14:04 Stroke CXR 1 View In Process Unspecified. EDMS Administered Medications: No medications were administered Medication: 14:03 VIS not applicable for this client. Outcome: 14:03 Discharge ordered by . sb4 14:40 Patient left the ED. NIH Stroke Scale - NIH Stroke Score Date: 11/06/2022 Time: 14:02 Total Score = 0 1a. Level of Consciousness (LOC) - 0(Alert) 1b. Level of Consciousness (LOC) (Month \T\ Age) - 0(Both) 1c. LOC Commands (Open \T\ Closes Eyes/Medical Office Receptionist) - 0(Both) 2. Best Gaze (Lateral Gaze Paresis) - 0(Normal) 3. Visual Field Loss - 0(No visual loss) 4. Facial Palsy - 0(Normal) 5a. Left Arm: Motor (10-second hold) - 0(No drift) 5b. Right Arm: Motor (10-second hold) - 0(No drift) 6a. Left Leg: Motor (5-second hold - always test supine) - 0(No drift) 6b. Right Leg: Motor (5-second hold - always test supine) - 0(No drift) 7. Limb Ataxia (finger/nose \T\ heel/jennings - test with eyes open) - 0(Absent) 8. Sensory Loss (pinprick arms/legs/face) - 0(Normal) 9. Best Language: Aphasia (description/naming/reading) - 0(No aphasia) 10. Dysarthria (speech clarity - read or repeat words) - 0(Normal) 11. Extinction and Inattention (visual/tactile/auditory/spatial/personal) - 0(No abnormality) Initials: Signatures: Dispatcher [employer] EDMS Maria Justice RN RN Alee Mckeon am2 Helen Balderas, RN RN Na Jackson PA-C PA-C sb4
--- NOTE | 2022-11-06 14:16 | RAD REPORT ---
EXAM DESCRIPTION: Pia Single View11/06/2022 2:02 pm CLINICAL HISTORY: Shortness of breath COMPARISON: August 2022 FINDINGS: Lung volumes are diminished bilaterally. Mild prominence of the lung interstitium bilaterally without significant change probably chronic Heart is normal size
[2022-11-06 14:44] VITALS: TEMP 97.7
[2022-11-06 14:45] VITALS: BP 145/105; O2SAT 99
== END 2022-11-06 14:40 | disposition home or self-care (01) ==
LOC: ER 10:36
DX: R20.2 Paresthesia of skin (principal); R53.1 Weakness; R05.9 Cough, unspecified; Z20.822 Contact with and (suspected) exposure to COVID-19; Z86.73 Personal history of transient ischemic attack (TIA), and cerebral infarction without residual deficits
CPT/HCPCS: 85025; 80048; 36415; 85610; 85730; 84484; 0240U; 70450; 71045; 99283; 93005

== ENCOUNTER 2022-12-05 17:09 | Emergency (ER) | payer OTHER ==
--- OUTSIDE RECORDS SUMMARY | 2022-12-05 17:14 | XMS REPORT | Continuity of Care Document ---
:1985 Author Organization [facility] t Address [address] [place] [address] Care Team Providers Name Role Phone Jethro Allen Attending Clinician Unavailable Payers Payer Name Policy Type Policy Number Effective Date Expiration Date Elver yanes [place] [id number] 2015 Common HEALTHCARE 00:00:00 [facility] Problems Condition Condition Condition Status Onset Resolution Last Treating Co mments Source Name Details Category Date Date Treatment Clinician Date SEIZURES SEIZURES Diagnosis Active 2011-102012-08-20 Memoria Active 10-20 17:32:00 l 08/20/2012 00:00: Jake denise [address] [id number] Type 2 Problem Active Common diabetes Spirit mellitus - [facility] with [facility] [id number] IRENE Problem Active Common (generaliz Spirit ed anxiety - [facility] disorder) [facility] [id number] Current Problem Active Common moderate Spirit episode of - [facility] prior episode [id number] Bipolar Problem Active Commo n affective Spirit disorder, - [facility] currently [facility] [id number] [employer] customer service Problem Active Com mon (current) Spirit use of - [facility] insulin [facility] Allergies, Adverse Reactions, Alerts This patient has no known allergies or adverse reactions. Social History Social Habit Start Date Stop Date Quantity Comments Source History of Tobacco Use Co mmon [facility] - [facility] Sex Assigned At Com mon [facility] Smoking Status Start Date Stop Date Source Never Smoker Common [facility] Medications Ordered Filled Start Stop Current Ordering Indication Dosage Frequency Signature Comments Components Source Medication Medication Date Date Medication? Clinician (SIG) Name Name [facility]2011-10 Yes Tatyana 750 mg, 3 [...] Chambers mL, Route: l Chloride 03:49: IVPB, [place] 0.9% IV 50 00 ONCE, mL Start date: 08/20/12 21:49:00, Stop date: 08/20/12 21:49:00 Depacon + 2011-10 No Terri A 500 mg, 5 Memoria Sodium 1-18 Chambers mL, Route: l Chloride 03:49: IVPB, [place] 0.9% IV 50 00 ONCE, mL Start [...] Route: IV, l 03:17: Jose David ONCE, [place] 00 Dosing Weight 72.727, kg, Start date: 08/20/12 21:17:00, Stop date: 08/20/12 21:17:00 Depakote 2011-10 No Tatyana 500 mg, Memor ia 18 Jessica Route: IV, l 03:17: Jose David ONCE, [place] 00 Dosing Weight 72.727, kg, Start date: 08/20/12 21:17:00, Stop date: 08/20/12 21:17:00 Depakote 2011-10 No Tatyana 500 mg, Memor ia 10-21 Jessica Route: IV, l 03:17: Jose David ONCE, [place] 00 Dosing Weight 72.727, kg, Start date: [...] tab, PO, l tablet, 22:02: BID, 30 [place] extended 13 tab, release Substituti on Allowed, ERTAB Depakote ER 2011-10 Yes 500 mg, 1 M emoria 500 mg oral 1-17 tab, PO, l tablet, 22:02: BID, 30 [place] extended 13 tab, release Substituti on Allowed, ERTAB Depakote ER 2011-10 Yes 500 mg, 1 M emoria 500 mg oral 1-17 tab, PO, l tablet, 22:02: BID, 30 [place] extended 13 tab, release Substituti on Allowed, ERTAB Depakote ER 2011-10 Yes 500 mg, 1 M emoria 500 mg oral 1-17 tab, PO, l tablet, 22:02: BID, 30 [place] extended 13 tab, release Substituti on Allowed, ERTAB Depakote ER 2011-10 Yes 500 mg, 1 M emoria 500 mg oral 1-17 tab, PO, l tablet, 22:02: BID, 30 [place] extended 13 tab, release Substituti on Allowed, [...] BID Fycompa 10 Common MG MG MG [facility] BusPIRone BusPIRone No 1{table TID BusPIRone Common HCl 5 MG HCl 5 MG t} HCl 5 MG Spi rit [facility] Lantus 100 Lantus 100 No BID Lantus 100 Common UNIT/ML UNIT/ML UNIT/ML [facility] Citalopram Citalopram No 1{table QD Citalopram Common Hydrobromid Hydrobromid t} Hydrobromi Spirit e 20 MG e 20 MG de 20 MG [facility] Latuda 20 Latuda 20 No 1{table QD Latuda 20 Common MG MG t} MG [facility] Keppra Keppra No Keppra Common [facility] Fycompa 10 Fycompa 10 No BID Fycompa 10 MG MG MG Lantus 100 Lantus 100 No BID Lantus 100 UNIT/ML UNIT/ML UNIT/ML Eliquis 5 Eliquis 5 No 1{table BID Eliquis 5 MG MG t} MG Vital Signs Vital Name Observation Time Observation Value Comments Source height 2020-10-15 10:20:00 65 [in_i] Common [facility] weight 2020-10-15 10:20:00 180 [lb_av] Common [facility] temperature 2020-10-15 10:20:00 98.7 [degF] Common [facility] bmi 2020-10-15 10:20:00 29.95 kg/m2 Common [facility] blood pressure 2020-10-15 10:20:00 131 mm[Hg] Common [facility] - systolic [facility] blood pressure 2020-10-15 10:20:00 74 mm[Hg] Common [facility] - diastolic [facility] Weight 2012-08-20 21:07:00 [facility]ly [facility] Height 2012-08-20 21:07:00 165.10 cm [facility] Procedures This patient has no known procedures. Encounters Start End Encounter Admission Attending Care Care Encounter Source Date/Time Date/Time Type Type Clinicians Facility Department ID 2022-12-04 Out[facility] [id number] Common 11:14:01 Formerly [facility], [facility] [address] [facility] 2022-07-02 Outpatient [facility] [id number] [place] 04:48:12 [id number] Health 2021-10-29 Outpatient Allen, STLMLC [facility] [id number] Common 12:21:25 [facility], [facility] [address] [facility] 2021-10-29 Outpatient Allen, STLMLC [facility] [id number] Common 12:19:51 [facility], [facility] [address] [facility] 2021-10-29 Outpatient Allen, STLMLC [facility] [id number] Common 12:16:00 [facility]ly [facility], [facility] [address] [facility] 2020-10-15 2020-10-15 OFFICE [facility] [id number] Co mmon 00:00:00 00:00:00 VISIT NEW [facility] it PT LEVEL 3 [facility] 2020-09-25 2020-09-25 (TEL) STLMLC [facility] [id number] Co mmon 00:00:00 00:00:00 [facility] 2012-08-20 2012-08-20 [facility] [id number] Memoria 15:06:00 23:52:00 r Medical 00 l [facility] 2012-08-20 2012-08-20 [facility] [id number] Memoria 15:06:00 23:52:00 r Medical 00 l [facility] Results Test Description Test Time Test Comments Results Result Comments Source CHEMISTRY 2012-08-20 22:46:00 Test Item Value Reference Range Interpretation Comme nts Valproic Acid Lvl (test code = Valproic Acid Lvl) 128 50-1 00 H [facility]qosmznNAUXLIPHF7245-69-92 22:46:00 Test Item Value Reference Range Interpretation Comments Valproic Acid Lvl (test code = Valproic 128 50-100 H Acid Lvl) [facility]evilleQxoutdhYNNGNQOBY0847-73-22 22:46:00 Test Item Value Reference Range Interpretation Comments Valproic Acid Lvl (test code = Valproic 128 50-100 H Acid Lvl) [facility]evilleIcnvyygIFSDOOEDD9045-15-04 22:46:00 Test Item Value Reference Range Interpretation Comments Valproic Acid Lvl (test code = Valproic 128 50-100 H Acid Lvl) [facility]evilleObxhkdwQZGQFUFVC8689-60-25 22:46:00 Test Item Value Reference Range Interpretation Comments Valproic Acid Lvl (test code = Valproic 128 50-100 H Acid Lvl) [facility]QwcwofxYWLWQIIOWA8778-47-44 22:42:00 Test Item Value Reference Range Interpretation Comments MPV (test code = MPV) 9.0 7.4-10.4 N [facility] ResourcesVwkifuaYWDXGMPAPG6052-63-95 22:42:00 Test Item Value Reference Range Interpretation Comments MCH (test code = MCH) 30.3 pg 27.0-31.0 N [facility] ResourcesIkedignTRZLDRXOMA3812-94-80 22:42:00 Test Item Value Reference Range Interpretation Comments MCHC (test code = MCHC) 33.5 32.0-36.0 N [facility] ResourcesZagoauoDUGUIZORET0179-26-73 22:42:00 Test Item Value Reference Range Interpretation Comments Platelet (test code = Platelet) 204 133-450 N [facility] ResourcesTzsnkrkYUHRWIRVDR8418-65-16 22:42:00 Test Item Value Reference Range Interpretation Comments RDW (test code = RDW) 12.0 11.5-14.5 N [facility] ResourcesBjtdojqOGDAHFFAHB8046-71-65 22:42:00 Test Item Value Reference Range Interpretation Comments RBC (test code = RBC) 4.38 4.70-6.10 L [facility] ResourcesCaiqngdWTSYNMALRO4025-31-08 22:42:00 Test Item Value Reference Range Interpretation Comments WBC (test code = WBC) 8.0 3.7-10.4 N [facility] ResourcesMzxpstqUGAGSHLRTM3734-88-42 22:42:00 Test Item Value Reference Range Interpretation Comments MCV (test code = MCV) 90.5 80.0-94.0 N [facility] ResourcesBjhuqpuYWFLATODLY9918-15-26 22:42:00 Test Item Value Reference Range Interpretation Comments Hgb (test code = Hgb) 13.3 14.0-18.0 L [facility]YavvsswWYCXWNGCX3494-23-35 22:42:00 Test Item Value Reference Range Interpretation Comments Sodium Lvl (test code = Sodium Lvl) 140 135-145 N [facility] ResourcesRkuvmhzFAODWHOBYC1667-93-68 22:42:00 Test Item Value Reference Range Interpretation Comments Hct (test code = Hct) 39.7 42.0-54.0 L [facility]evilleLutffznGXHQAQUJQ7163-18-41 22:42:00 Test Item Value Reference Range Interpretation Comments Creatinine Lvl (test code = Creatinine 0.7 0.5-1.4 N Lvl) [facility]evilleNkwmduhPQNYLJCJN1002-42-07 22:42:00 Test Item Value Reference Range Interpretation Comments Potassium Lvl (test code = Potassium 5.0 3.5-5.1 N Lvl) [facility]evilleCaoszalRKMAOUKTY9960-13-61 22:42:00 Test Item Value Reference Range Interpretation Comments Chloride Lvl (test code = Chloride Lvl) 103 95-109 N [facility]evilleHrtlkwyXCOUWPBHB2758-04-38 22:42:00 Test Item Value Reference Range Interpretation Comments Phosphorus (test code = Phosphorus) 4.7 2.5-4.5 H [facility] BeevilleLkalzlaCURQSONDG1534-52-14 22:42:00 Test Item Value Reference Range Interpretation Comments Magnesium Lvl (test code = Magnesium 1.8 1.8-2.4 N Lvl) [facility] ResourcesOrguixaUOWBRYGTIJ4489-39-61 22:42:00 Test Item Value Reference Range Interpretation Comments Basophils # (test code 0.1 See_Comment N [Aut omated message] The = Basophils #) system which generated this result tra nsmitted reference range : <=0.2. The reference r terri was not used to int erpret this result as normal/abnormal . [facility]GpwmteiHFDNRGUFXH6719-91-02 22:42:00 Test Item Value Reference Range Interpretation Comments Lymphocytes # (test code = Lymphocytes 2.5 1.0-5.5 N #) [facility] ResourcesDgaalpfEVFTZAXCLC9275-82-16 22:42:00 Test Item Value Reference Range Interpretation Comments Basophils (test code = 0.7 See_Comment N [Aut omated message] The Basophils) system which ge nerated this result tra nsmitted reference range : <=1.0. The reference r terri was not used to int erpret this result as normal/abnormal . [facility] ResourcesFbyvgvgGKZEMKKOHG8176-98-82 22:42:00 Test Item Value Reference Range Interpretation Comments Monocytes # (test code 0.4 See_Comment N [Aut omated message] The = Monocytes #) system which generated this result tra nsmitted reference range : <=0.8. The reference r terri was not used to int erpret this result as normal/abnormal . [facility] ResourcesHwmqmdkSWGWXRQYRK5032-74-65 22:42:00 Test Item Value Reference Range Interpretation Comments Segs-Bands # (test code = Segs-Bands #) 4.9 1.5-8.1 N [facility] ResourcesFyewjwkZOTADGKOPZ1703-55-16 22:42:00 Test Item Value Reference Range Interpretation Comments Eosinophils (test code = 1.0 See_Comment N [A utomated message] The Eosinophils) system which ge nerated this result tra nsmitted reference range : <=4.0. The reference r terri was not used to int erpret this result as normal/abnormal . [facility] ResourcesMcvyuyiMKVIQOKYZZ5961-86-04 22:42:00 Test Item Value Reference Range Interpretation Comments Eosinophils # (test code 0.1 See_Comment N [A utomated message] The = Eosinophils #) system whic h generated this result tra nsmitted reference range : <=0.5. The reference r terri was not used to int erpret this result as normal/abnormal . [facility] ResourcesRtwlnnlZCKSINGMIO0144-65-22 22:42:00 Test Item Value Reference Range Interpretation Comments Monocytes (test code = Monocytes) 5.0 2.0-12.0 N [facility] ResourcesQexocdqFAQHXUEDFQ2157-89-61 22:42:00 Test Item Value Reference Range Interpretation Comments Lymphocytes (test code = Lymphocytes) 31.3 20.0-40.0 N [facility] ResourcesDcvvuwzRJYGSWFCYL3493-75-18 22:42:00 Test Item Value Reference Range Interpretation Comments Segs (test code = Segs) 62.0 45.0-75.0 N [facility] ResourcesIepgrdsUTBZZTRJXZ5663-41-14 22:42:00 Test Item Value Reference Range Interpretation Comments MPV (test code = MPV) 9.0 7.4-10.4 N [facility] ResourcesKlqduasEBMMHPJQBY4358-68-48 22:42:00 Test Item Value Reference Range Interpretation Comments MCH (test code = MCH) 30.3 pg 27.0-31.0 N [facility] ResourcesIjhvmyoJBAKYXMQVE7872-78-34 22:42:00 Test Item Value Reference Range Interpretation Comments MCHC (test code = MCHC) 33.5 32.0-36.0 N [facility] ResourcesJedhlfvFTAUEXFUMH3036-35-21 22:42:00 Test Item Value Reference Range Interpretation Comments Platelet (test code = Platelet) 204 133-450 N [facility] ResourcesRcgelqoYEJQNWDSHG8535-94-68 22:42:00 Test Item Value Reference Range Interpretation Comments RDW (test code = RDW) 12.0 11.5-14.5 N [facility] ResourcesSwtzkuoOEPXDKUZXB4677-76-19 22:42:00 Test Item Value Reference Range Interpretation Comments RBC (test code = RBC) 4.38 4.70-6.10 L [facility] ResourcesDbshleeICPWOYDDML7095-90-99 22:42:00 Test Item Value Reference Range Interpretation Comments WBC (test code = WBC) 8.0 3.7-10.4 N [facility] ResourcesHkqisehBNUEIEYNKL9709-45-41 22:42:00 Test Item Value Reference Range Interpretation Comments MCV (test code = MCV) 90.5 80.0-94.0 N [facility]QplmrrpWMKFVFIEDD5714-47-97 22:42:00 Test Item Value Reference Range Interpretation Comments Hgb (test code = Hgb) 13.3 14.0-18.0 L [facility] ResourcesGtkaiqwGDBIMXAQLL3975-25-15 22:42:00 Test Item Value Reference Range Interpretation Comments Hct (test code = Hct) 39.7 42.0-54.0 L [facility]evilleVsowlneMRZIZSCCU1729-45-16 22:42:00 Test Item Value Reference Range Interpretation Comments BUN (test code = BUN) 13 7-22 N [facility]evilleTrbzeglWUMTACNAS1879-76-72 22:42:00 Test Item Value Reference Range Interpretation Comments Glucose Lvl (test code = Glucose Lvl) 83 70-99 N [facility]evilleIscaytoWKMQTZSPB0176-43-39 22:42:00 Test Item Value Reference Range Interpretation Comments Calcium Lvl (test code = Calcium Lvl) 9.3 8.5-10.5 N [facility]evilleXbijgjaVFFKRRWPH5267-43-53 22:42:00 Test Item Value Reference Range Interpretation Comments CO2 (test code = CO2) 31 24-32 N [facility]evilleXrzutzbSDOUAXCAY6562-45-18 22:42:00 Test Item Value Reference Range Interpretation Comments AGAP (test code = AGAP) 11.0 10.0-20.0 N [facility]evilleZxtkkfsBZGXGKNZB9514-96-72 22:42:00 Test Item Value Reference Range Interpretation Comments eGFR (test code = eGFR) 131 [facility]evilleQayagipDDFAUCFLR4450-00-12 22:42:00 Test Item Value Reference Range Interpretation Comments Sodium Lvl (test code = Sodium Lvl) 140 135-145 N [facility]evilleYzdvjaqGBNPMWHFO1481-04-86 22:42:00 Test Item Value Reference Range Interpretation Comments Creatinine Lvl (test code = Creatinine 0.7 0.5-1.4 N Lvl) [facility]evilleDnqboeeVAOFPOOCI7015-19-06 22:42:00 Test Item Value Reference Range Interpretation Comments Potassium Lvl (test code = Potassium 5.0 3.5-5.1 N Lvl) [facility]evilleMatyigrJCZWQXUGG6414-73-25 22:42:00 Test Item Value Reference Range Interpretation Comments Chloride Lvl (test code = Chloride Lvl) 103 95-109 N [facility] BeevilleLsdlureETXLYHYIG5872-26-14 22:42:00 Test Item Value Reference Range Interpretation Comments Phosphorus (test code = Phosphorus) 4.7 2.5-4.5 H [facility]evilleXgllmqjZVXBXWNLS5206-90-99 22:42:00 Test Item Value Reference Range Interpretation Comments Magnesium Lvl (test code = Magnesium 1.8 1.8-2.4 N Lvl) [facility]QgqwpqhMDGZEUHIHD3210-81-03 22:42:00 Test Item Value Reference Range Interpretation Comments Basophils # (test code 0.1 See_Comment N [Aut omated message] The = Basophils #) system which generated this result tra nsmitted reference range : <=0.2. The reference r terri was not used to int erpret this result as normal/abnormal . [facility] ResourcesHnyrcdhMIUHUCOKYJ3419-32-53 22:42:00 Test Item Value Reference Range Interpretation Comments Lymphocytes # (test code = Lymphocytes 2.5 1.0-5.5 N #) [facility] ResourcesOydiczoGAAZMRHKPP5881-84-08 22:42:00 Test Item Value Reference Range Interpretation Comments Basophils (test code = 0.7 See_Comment N [Aut omated message] The Basophils) system which ge nerated this result tra nsmitted reference range : <=1.0. The reference r terri was not used to int erpret this result as normal/abnormal . [facility] ResourcesOjtyifkFSHOLLUVYD7868-06-68 22:42:00 Test Item Value Reference Range Interpretation Comments Monocytes # (test code 0.4 See_Comment N [Aut omated message] The = Monocytes #) system which generated this result tra nsmitted reference range : <=0.8. The reference r terri was not used to int erpret this result as normal/abnormal . [facility] ResourcesVeselwgNWQQKLEXGM0621-43-67 22:42:00 Test Item Value Reference Range Interpretation Comments Segs-Bands # (test code = Segs-Bands #) 4.9 1.5-8.1 N [facility] ResourcesHiwsxcmWHLLAJSHNU3574-94-33 22:42:00 Test Item Value Reference Range Interpretation Comments Eosinophils (test code = 1.0 See_Comment N [A utomated message] The Eosinophils) system which ge nerated this result tra nsmitted reference range : <=4.0. The reference r terri was not used to int erpret this result as normal/abnormal . [facility] ResourcesTulajiuYJHLMYXRRI0594-42-05 22:42:00 Test Item Value Reference Range Interpretation Comments Eosinophils # (test code 0.1 See_Comment N [A utomated message] The = Eosinophils #) system whic h generated this result tra nsmitted reference range : <=0.5. The reference r terri was not used to int erpret this result as normal/abnormal . [facility] ResourcesGosvedyXPQKJBIGAZ6059-73-38 22:42:00 Test Item Value Reference Range Interpretation Comments Monocytes (test code = Monocytes) 5.0 2.0-12.0 N [facility] ResourcesKztroeeYYFATVLMPB6390-10-24 22:42:00 Test Item Value Reference Range Interpretation Comments Lymphocytes (test code = Lymphocytes) 31.3 20.0-40.0 N [place] [address]-11-17 22:42:00 Test Item Value Reference Range Interpretation Comments Segs (test code = Segs) 62.0 45.0-75.0 N [facility] ResourcesFyrjobvJJJUESBJDT8305-63-94 22:42:00 Test Item Value Reference Range Interpretation Comments MPV (test code = MPV) 9.0 7.4-10.4 N [facility] ResourcesYqgmbmgIOFHBFBOAW5647-82-25 22:42:00 Test Item Value Reference Range Interpretation Comments MCH (test code = MCH) 30.3 pg 27.0-31.0 N [facility] ResourcesQqpqpxgMOCVLTSTZX6714-66-67 22:42:00 Test Item Value Reference Range Interpretation Comments MCHC (test code = MCHC) 33.5 32.0-36.0 N [facility] ResourcesQoryocwJRVTXGUNBJ8671-61-36 22:42:00 Test Item Value Reference Range Interpretation Comments Platelet (test code = Platelet) 204 133-450 N [facility] ResourcesCtvlsgfDNHFPIPNQY0626-38-51 22:42:00 Test Item Value Reference Range Interpretation Comments RDW (test code = RDW) 12.0 11.5-14.5 N [facility] ResourcesKlmkhlpKBTAZOZIBK3344-40-91 22:42:00 Test Item Value Reference Range Interpretation Comments RBC (test code = RBC) 4.38 4.70-6.10 L [facility] ResourcesUcnmukzSALMPTYHEU2812-05-10 22:42:00 Test Item Value Reference Range Interpretation Comments WBC (test code = WBC) 8.0 3.7-10.4 N [facility] ResourcesZhippwtFTIANMYEMT6692-42-58 22:42:00 Test Item Value Reference Range Interpretation Comments MCV (test code = MCV) 90.5 80.0-94.0 N [place] [address]-11-17 22:42:00 Test Item Value Reference Range Interpretation Comments Hgb (test code = Hgb) 13.3 14.0-18.0 L [facility] ResourcesBbomiryEJAKENPUPQ4638-21-87 22:42:00 Test Item Value Reference Range Interpretation Comments Hct (test code = Hct) 39.7 42.0-54.0 L [facility]evilleYnmmqtxOSRCAQDMQ9087-10-69 22:42:00 Test Item Value Reference Range Interpretation Comments BUN (test code = BUN) 13 7-22 N [facility]evilleCdewsadVDBZTESZX6469-58-97 22:42:00 Test Item Value Reference Range Interpretation Comments Glucose Lvl (test code = Glucose Lvl) 83 70-99 N [facility]evilleVuegwrySSDEPLPJF9784-70-81 22:42:00 Test Item Value Reference Range Interpretation Comments Calcium Lvl (test code = Calcium Lvl) 9.3 8.5-10.5 N [facility]evilleRxribhaFASTJONZT0319-61-42 22:42:00 Test Item Value Reference Range Interpretation Comments CO2 (test code = CO2) 31 24-32 N [facility]evilleQqhifqyVZPUQPMQS8100-92-68 22:42:00 Test Item Value Reference Range Interpretation Comments AGAP (test code = AGAP) 11.0 10.0-20.0 N [facility]evilleAsuhglpTIXYTUQCQ8080-51-36 22:42:00 Test Item Value Reference Range Interpretation Comments eGFR (test code = eGFR) 131 [facility]evilleEhpnguzCYIILBHBV0284-96-54 22:42:00 Test Item Value Reference Range Interpretation Comments Sodium Lvl (test code = Sodium Lvl) 140 135-145 N [facility] BeevilleDvlbyzlKORNXDHZJ4277-55-90 22:42:00 Test Item Value Reference Range Interpretation Comments Creatinine Lvl (test code = Creatinine 0.7 0.5-1.4 N Lvl) [facility]evilleWcbbzamFRUVWTDFZ3849-08-02 22:42:00 Test Item Value Reference Range Interpretation Comments Potassium Lvl (test code = Potassium 5.0 3.5-5.1 N Lvl) [facility]evilleXvaotuoUIJNNFDGX9862-72-26 22:42:00 Test Item Value Reference Range Interpretation Comments Chloride Lvl (test code = Chloride Lvl) 103 95-109 N [facility] [facility]DcobdmfDQGJARRDN9998[facility] 22:42:00 Test Item Value Reference Range Interpretation Comments BUN (test code = BUN) 13 7-22 N [facility]ZqamcjfKCFDHFJMH5780-49-15 22:42:00 Test Item Value Reference Range Interpretation Comments Glucose Lvl (test code = Glucose Lvl) 83 70-99 N [facility]evilleOohdpepEFYTLYRKO6275-93-46 22:42:00 Test Item Value Reference Range Interpretation Comments Calcium Lvl (test code = Calcium Lvl) 9.3 8.5-10.5 N [facility]DavtefhZAHGBKRMI7731-65-34 22:42:00 Test Item Value Reference Range Interpretation Comments CO2 (test code = CO2) 31 24-32 N [facility]evilleDhbcqzmHWJWPTZLH2954-90-99 22:42:00 Test Item Value Reference Range Interpretation Comments AGAP (test code = AGAP) 11.0 10.0-20.0 N [facility]evilleSjbnupgPWVNWGVRI0058-51-54 22:42:00 Test Item Value Reference Range Interpretation Comments eGFR (test code = eGFR) 131 [facility]evilleWflcjvkDJYANXHRU7291-84-76 22:42:00 Test Item Value Reference Range Interpretation Comments Sodium Lvl (test code = Sodium Lvl) 140 135-145 N [facility]evilleBueophxMEFVGJVIW9571-16-11 22:42:00 Test Item Value Reference Range Interpretation Comments Creatinine Lvl (test code = Creatinine 0.7 0.5-1.4 N Lvl) [facility]evilleNdzfswjKFAGNKPOF3360-31-09 22:42:00 Test Item Value Reference Range Interpretation Comments Potassium Lvl (test code = Potassium 5.0 3.5-5.1 N Lvl) [facility]evilleSdcorzfTKKBGOUFU3230-24-03 22:42:00 Test Item Value Reference Range Interpretation Comments Chloride Lvl (test code = Chloride Lvl) 103 95-109 N [facility]evilleYhqaftvTDMROSAEM4965-76-00 22:42:00 Test Item Value Reference Range Interpretation Comments Phosphorus (test code = Phosphorus) 4.7 2.5-4.5 H [facility]evilleUmsthgnPWKBUUBXS9779-44-55 22:42:00 Test Item Value Reference Range Interpretation Comments Magnesium Lvl (test code = Magnesium 1.8 1.8-2.4 N Lvl) [facility]ZtozmgjGJSDWYLUGA0799-53-37 22:42:00 Test Item Value Reference Range Interpretation Comments Basophils # (test code 0.1 See_Comment N [Aut omated message] The = Basophils #) system which generated this result tra nsmitted reference range : <=0.2. The reference r terri was not used to int erpret this result as normal/abnormal . [facility]DbdjpilSXMIVMPNZV8594-20-40 22:42:00 Test Item Value Reference Range Interpretation Comments Lymphocytes # (test code = Lymphocytes 2.5 1.0-5.5 N #) [facility] ResourcesOrxqqisTXDYQJBOXG6130-04-43 22:42:00 Test Item Value Reference Range Interpretation Comments Basophils (test code = 0.7 See_Comment N [Aut omated message] The Basophils) system which ge nerated this result tra nsmitted reference range : <=1.0. The reference r terri was not used to int erpret this result as normal/abnormal . [facility] ResourcesFvggsgdVYJQPQTULG2288-89-68 22:42:00 Test Item Value Reference Range Interpretation Comments Monocytes # (test code 0.4 See_Comment N [Aut omated message] The = Monocytes #) system which generated this result tra nsmitted reference range : <=0.8. The reference r terri was not used to int erpret this result as normal/abnormal . [facility]BgwrxzrGBPTIITWHF1557-59-54 22:42:00 Test Item Value Reference Range Interpretation Comments Segs-Bands # (test code = Segs-Bands #) 4.9 1.5-8.1 N [facility] ResourcesGnycfezYBMIIDWWVX7797-48-25 22:42:00 Test Item Value Reference Range Interpretation Comments Eosinophils (test code = 1.0 See_Comment N [A utomated message] The Eosinophils) system which ge nerated this result tra nsmitted reference range : <=4.0. The reference r terri was not used to int erpret this result as normal/abnormal . [facility]FpwfursTLVBMPGJOR3835-85-65 22:42:00 Test Item Value Reference Range Interpretation Comments Eosinophils # (test code 0.1 See_Comment N [A utomated message] The = Eosinophils #) system wh h generated this result tra nsmitted reference range : <=0.5. The reference r terri was not used to int erpret this result as normal/abnormal . [facility]EwmwkhkZALPYCGLGL1721-67-24 22:42:00 Test Item Value Reference Range Interpretation Comments Monocytes (test code = Monocytes) 5.0 2.0-12.0 N [facility] ResourcesYufnairKSQWISCVPS2585-34-23 22:42:00 Test Item Value Reference Range Interpretation Comments Lymphocytes (test code = Lymphocytes) 31.3 20.0-40.0 N [facility] ResourcesYiwrbvjBAOGLWJEQH6980-18-22 22:42:00 Test Item Value Reference Range Interpretation Comments Segs (test code = Segs) 62.0 45.0-75.0 N [facility] ResourcesUopxyajYAOYPLGYGC0107-49-88 22:42:00 Test Item Value Reference Range Interpretation Comments MPV (test code = MPV) 9.0 7.4-10.4 N [facility] ResourcesNwuscvrPKQXHWELJI2568-43-80 22:42:00 Test Item Value Reference Range Interpretation Comments MCH (test code = MCH) 30.3 pg 27.0-31.0 N [facility] ResourcesBahptnjFZAMUQSMSV2994-97-42 22:42:00 Test Item Value Reference Range Interpretation Comments MCHC (test code = MCHC) 33.5 32.0-36.0 N [facility]YietabzZMJDFGMNSU0477-00-70 22:42:00 Test Item Value Reference Range Interpretation Comments Platelet (test code = Platelet) 204 133-450 N [facility]OaehzncGTCAFRMKJE8886-26-54 22:42:00 Test Item Value Reference Range Interpretation Comments RDW (test code = RDW) 12.0 11.5-14.5 N [facility] ResourcesSdlkrmsMVEMQTBCXV1624-89-76 22:42:00 Test Item Value Reference Range Interpretation Comments RBC (test code = RBC) 4.38 4.70-6.10 L [facility]MmljxjsTLGLGJDLRO8675-49-41 22:42:00 Test Item Value Reference Range Interpretation Comments WBC (test code = WBC) 8.0 3.7-10.4 N [facility]PcrgtktMOLCMQQAGW6636-94-28 22:42:00 Test Item Value Reference Range Interpretation Comments MCV (test code = MCV) 90.5 80.0-94.0 N [facility] ResourcesQwokpmkWCNGNZIFPW4853-01-45 22:42:00 Test Item Value Reference Range Interpretation Comments Hgb (test code = Hgb) 13.3 14.0-18.0 L [facility] ResourcesDcmtsebQFYYQNFLVO7161-72-74 22:42:00 Test Item Value Reference Range Interpretation Comments Hct (test code = Hct) 39.7 42.0-54.0 L [facility]KouumeiUSHVSYZJK0530-57-03 22:42:00 Test Item Value Reference Range Interpretation Comments BUN (test code = BUN) 13 7-22 N [facility]evilleVuaarviRIBMPEBWI6355-57-53 22:42:00 Test Item Value Reference Range Interpretation Comments Phosphorus (test code = Phosphorus) 4.7 2.5-4.5 H [facility]IywztvyJJEGHTKSQ8007-01-16 22:42:00 Test Item Value Reference Range Interpretation Comments Magnesium Lvl (test code = Magnesium 1.8 1.8-2.4 N Lvl) [facility] ResourcesLrtmvhiVUUTMIULZP1025-70-71 22:42:00 Test Item Value Reference Range Interpretation Comments Basophils # (test code 0.1 See_Comment N [Aut omated message] The = Basophils #) system which generated this result tra nsmitted reference range : <=0.2. The reference r terri was not used to int erpret this result as normal/abnormal . [facility]MipsdoqAVPRXEZXTX5669-18-26 22:42:00 Test Item Value Reference Range Interpretation Comments Lymphocytes # (test code = Lymphocytes 2.5 1.0-5.5 N #) [facility]EbqweguUHTZAGJQUD5879-91-98 22:42:00 Test Item Value Reference Range Interpretation Comments Basophils (test code = 0.7 See_Comment N [Aut omated message] The Basophils) system which ge nerated this result tra nsmitted reference range : <=1.0. The reference r terri was not used to int erpret this result as normal/abnormal . [facility]KhrbyawIHMFJYSMUS9237-18-93 22:42:00 Test Item Value Reference Range Interpretation Comments Monocytes # (test code 0.4 See_Comment N [Aut omated message] The = Monocytes #) system which generated this result tra nsmitted reference range : <=0.8. The reference r terri was not used to int erpret this result as normal/abnormal . [facility]FbyetcyOOJHNTPQXV8961-22-81 22:42:00 Test Item Value Reference Range Interpretation Comments Segs-Bands # (test code = Segs-Bands #) 4.9 1.5-8.1 N [facility] ResourcesSkrovotBJCCMFKNIN2190-19-43 22:42:00 Test Item Value Reference Range Interpretation Comments Eosinophils (test code = 1.0 See_Comment N [A utomated message] The Eosinophils) system which ge nerated this result tra nsmitted reference range : <=4.0. The reference r terri was not used to int erpret this result as normal/abnormal . [facility] ResourcesAhzylofMFODRYKHKI8341-32-54 22:42:00 Test Item Value Reference Range Interpretation Comments Eosinophils # (test code 0.1 See_Comment N [A utomated message] The = Eosinophils #) system Ellieic h generated this result tra nsmitted reference range : <=0.5. The reference r terri was not used to int erpret this result as normal/abnormal . [facility]GqlyowcMZYICDTPHP5414-33-25 22:42:00 Test Item Value Reference Range Interpretation Comments Monocytes (test code = Monocytes) 5.0 2.0-12.0 N [facility]UswhmdoJEQOCONZJ4043-66-55 22:42:00 Test Item Value Reference Range Interpretation Comments Glucose Lvl (test code = Glucose Lvl) 83 70-99 N [facility] ResourcesYdzuyruEWNTHCHFMG6650-33-04 22:42:00 Test Item Value Reference Range Interpretation Comments Lymphocytes (test code = Lymphocytes) 31.3 20.0-40.0 N [facility] ResourcesLsvtqxjGCIPPSYEZH2251-35-09 22:42:00 Test Item Value Reference Range Interpretation Comments Segs (test code = Segs) 62.0 45.0-75.0 N [facility]KmgxuolLHTIYCBWJI5223-01-94 22:42:00 Test Item Value Reference Range Interpretation Comments MPV (test code = MPV) 9.0 7.4-10.4 N [facility] ResourcesFioehaiCAEPPRLVCT5820-55-65 22:42:00 Test Item Value Reference Range Interpretation Comments MCH (test code = MCH) 30.3 pg 27.0-31.0 N [facility]KfezapfXCFYRSHCEZ8094-35-73 22:42:00 Test Item Value Reference Range Interpretation Comments MCHC (test code = MCHC) 33.5 32.0-36.0 N [facility] ResourcesTatoyzbSKVXGVWVPR1730-59-32 22:42:00 Test Item Value Reference Range Interpretation Comments Platelet (test code = Platelet) 204 133-450 N [facility] ResourcesRrybwklLFWKKIMLQJ6227-96-90 22:42:00 Test Item Value Reference Range Interpretation Comments RDW (test code = RDW) 12.0 11.5-14.5 N [facility]ToeqcvxXSGDHBZOZA3754-93-08 22:42:00 Test Item Value Reference Range Interpretation Comments RBC (test code = RBC) 4.38 4.70-6.10 L [facility]GjyxyvbXHSNRWCPMS5867-46-89 22:42:00 Test Item Value Reference Range Interpretation Comments WBC (test code = WBC) 8.0 3.7-10.4 N [facility]PfuxyfzQCLKUELSBA7772-36-75 22:42:00 Test Item Value Reference Range Interpretation Comments MCV (test code = MCV) 90.5 80.0-94.0 N [facility]SkypakvLAZFATIXJ6042-18-96 22:42:00 Test Item Value Reference Range Interpretation Comments Calcium Lvl (test code = Calcium Lvl) 9.3 8.5-10.5 N [facility]PpzhuqrROLAFWZSZS2640-36-98 22:42:00 Test Item Value Reference Range Interpretation Comments Hgb (test code = Hgb) 13.3 14.0-18.0 L [facility]QmpweerTODQPCLROL0190-46-66 22:42:00 Test Item Value Reference Range Interpretation Comments Hct (test code = Hct) 39.7 42.0-54.0 L [facility]IfdiqfqPEEHWOLSG8686-05-68 22:42:00 Test Item Value Reference Range Interpretation Comments BUN (test code = BUN) 13 7-22 N [facility]MwocdsxZMANWSNGD6623-00-69 22:42:00 Test Item Value Reference Range Interpretation Comments CO2 (test code = CO2) 31 24-32 N [facility]EsfezvsKVBGTZPWU9971-01-90 22:42:00 Test Item Value Reference Range Interpretation Comments Glucose Lvl (test code = Glucose Lvl) 83 70-99 N [facility]evilleMyvznbnJZXFDGWBK9632-07-71 22:42:00 Test Item Value Reference Range Interpretation Comments Calcium Lvl (test code = Calcium Lvl) 9.3 8.5-10.5 N [facility]YkjrdxoNIALTWXEQ6168-07-55 22:42:00 Test Item Value Reference Range Interpretation Comments CO2 (test code = CO2) 31 24-32 N [facility]evilleVitdzqgXHBPCUWKS4131-27-28 22:42:00 Test Item Value Reference Range Interpretation Comments AGAP (test code = AGAP) 11.0 10.0-20.0 N [facility]evilleNeuvyvyLYGJKIJKG7778-39-98 22:42:00 Test Item Value Reference Range Interpretation Comments eGFR (test code = eGFR) 131 [facility]evilleZphutgnGTUMUNGBW8372-56-16 22:42:00 Test Item Value Reference Range Interpretation Comments Sodium Lvl (test code = Sodium Lvl) 140 135-145 N [facility]evillePsxlewoDJEMGSKMX3889-89-53 22:42:00 Test Item Value Reference Range Interpretation Comments Creatinine Lvl (test code = Creatinine 0.7 0.5-1.4 N Lvl) [facility]evilleYhrznuoCQIZZCJPP1231-85-51 22:42:00 Test Item Value Reference Range Interpretation Comments Potassium Lvl (test code = Potassium 5.0 3.5-5.1 N Lvl) [facility]evilleNsxkavcHRBOXYBXH8723-42-12 22:42:00 Test Item Value Reference Range Interpretation Comments Chloride Lvl (test code = Chloride Lvl) 103 95-109 N [facility]evilleUvwucylTNHURCUDC1419-62-01 22:42:00 Test Item Value Reference Range Interpretation Comments Phosphorus (test code = Phosphorus) 4.7 2.5-4.5 H [facility]evilleWrazfikJRPWKCIIO3494-86-44 22:42:00 Test Item Value Reference Range Interpretation Comments AGAP (test code = AGAP) 11.0 10.0-20.0 N [facility]evillePgpvpsnFMXLZBKMS1692-36-93 22:42:00 Test Item Value Reference Range Interpretation Comments Magnesium Lvl (test code = Magnesium 1.8 1.8-2.4 N Lvl) [facility]PdvngvjSINDLQBHEK3767-35-84 22:42:00 Test Item Value Reference Range Interpretation Comments Basophils # (test code 0.1 See_Comment N [Aut omated message] The = Basophils #) system which generated this result tra nsmitted reference range : <=0.2. The reference r terri was not used to int erpret this result as normal/abnormal . [facility] ResourcesHydryijJHKJUEXGFZ0210-06-84 22:42:00 Test Item Value Reference Range Interpretation Comments Lymphocytes # (test code = Lymphocytes 2.5 1.0-5.5 N #) [facility] ResourcesBaxnuvhPHILUZFMBR2781-92-21 22:42:00 Test Item Value Reference Range Interpretation Comments Basophils (test code = 0.7 See_Comment N [Aut omated message] The Basophils) system which ge nerated this result tra nsmitted reference range : <=1.0. The reference r terri was not used to int erpret this result as normal/abnormal . [facility] ResourcesUbhawofQGYXYXCMAE6663-50-75 22:42:00 Test Item Value Reference Range Interpretation Comments Monocytes # (test code 0.4 See_Comment N [Aut omated message] The = Monocytes #) system which generated this result tra nsmitted reference range : <=0.8. The reference r terri was not used to int erpret this result as normal/abnormal . [facility] ResourcesHwzerltEZQEQFBSFD7471-44-51 22:42:00 Test Item Value Reference Range Interpretation Comments Segs-Bands # (test code = Segs-Bands #) 4.9 1.5-8.1 N [facility] ResourcesJtvmdsuWHPUBUIZBG8615-98-88 22:42:00 Test Item Value Reference Range Interpretation Comments Eosinophils (test code = 1.0 See_Comment N [A utomated message] The Eosinophils) system which ge nerated this result tra nsmitted reference range : <=4.0. The reference r terri was not used to int erpret this result as normal/abnormal . [facility] ResourcesTsdkuvcKSCKWFJPXX4617-10-32 22:42:00 Test Item Value Reference Range Interpretation Comments Eosinophils # (test code 0.1 See_Comment N [A utomated message] The = Eosinophils #) system whic h generated this result tra nsmitted reference range : <=0.5. The reference r terri was not used to int erpret this result as normal/abnormal . [facility] ResourcesAhestcrDPJIETZMBN4050-05-66 22:42:00 Test Item Value Reference Range Interpretation Comments Monocytes (test code = Monocytes) 5.0 2.0-12.0 N [facility] ResourcesPybxlvtJYIWTHXOBG6953-84-07 22:42:00 Test Item Value Reference Range Interpretation Comments Lymphocytes (test code = Lymphocytes) 31.3 20.0-40.0 N [facility]evilleLimiugjBTAQZTZDE0545-31-04 22:42:00 Test Item Value Reference Range Interpretation Comments eGFR (test code = eGFR) 131 [facility] ResourcesJivkxhaGWNIXZWMPD0844-93-79 22:42:00 Test Item Value Reference Range Interpretation Comments Segs (test code = Segs) 62.0 45.0-75.0 N [facility] GLUCOSE WRKQQDR3964-62-31 21:59:00 Test Item Value Reference Range Interpretation Comments Gluc POC Lifscn (test code = Gluc POC 86 70-99 N Lif[facility]n) [facility] GLUCOSE NZEXTHZ9752-11-86 21:59:00 Test Item Value Reference Range Interpretation Comments Gluc POC Lifscn (test code = Gluc POC 86 70-99 N [facility]) [facility] GLUCOSE EQGUXEF9444-06-24 21:59:00 Test Item Value Reference Range Interpretation Comments Gluc POC Lifscn (test code = Gluc POC 86 70-99 N [facility]) [facility] GLUCOSE JZPQQCM6544-73-22 21:59:00 Test Item Value Reference Range Interpretation Comments Gluc POC Lifscn (test code = Gluc POC 86 70-99 N [facility]) [facility] GLUCOSE IYMWSRQ3229-22-89 21:59:00 Test Item Value Reference Range Interpretation Comments Gluc POC Lifscn (test code = Gluc POC 86 70-99 N [facility]) [facility]
[2022-12-05 18:41] LABS: Absolute Lymphocytes (CBC) 2.1 K/uL (0.7-4.9); Hematocrit 45.2 % (39.6-49.0); Lymphocytes % 25.9 % (15.3-44.8); MCV 83.2 fL (80-100); MPV 7.8 fL (7.6-11.3); RBC Red Blood Cell Count 5.43 M/uL (4.33-5.43)
[2022-12-05 18:46] LABS: Protime INR 1.13
[2022-12-05] MEDS ORDERED: NA CHLORIDE 0.9% 100 ML ONE (18:51)
[2022-12-05] MEDS ORDERED: FOSPHENYTOIN PE 500 MG/10 ML VIAL ONE (18:52)
[2022-12-05 18:57] LABS: Albumin 4.2 g/dL (3.4-5.0); Bilirubin Total 0.8 mg/dL (0.2-1.0); Potassium 3.5 mmol/L (3.5-5.1); Protein, Total 7.8 g/dL (6.4-8.2)
--- NOTE | 2022-12-05 19:12 | RAD REPORT ---
EXAM DESCRIPTION: CT - Head Brain Wo Cont - 12/05/2022 6:42 pm CLINICAL HISTORY: Right paralysis COMPARISON: Head Brain Wo Cont dated 11/06/2022; Head Brain Wo Cont dated 01/14/2022; Brain W/Wo Cont d ated 12/12/2021 TECHNIQUE: Noncontrast head CT images ad were obtained without IV contrast. Multiplanar reformats we re generated and reviewed. All CT scans are performed using dose optimization technique as appropriate and may include automated exposure control or mA/KV adjustment according to patient size. FINDINGS: No intracranial hemorrhage, mass, or edema. Midline structures are unremarkable. Normal ventricular caliber for age. Stable findings of corpus callosum dysgenesis, vermian hyperplasia/dysplasia, and cerebellar dysplasi a with peripheral encephalomalacia. Supratentorial astorga-white matter differentiation is preserved, wi thout evidence of acute infarct. No abnormal extra-axial fluid collections. Large mucous retention cyst in the left maxillary sinus, stable. Mastoid air cells and visualized por tions of the paranasal sinuses are otherwise clear. No acute bony findings. IMPRESSION: No evidence of an acute intracranial process. 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
--- NOTE | 2022-12-05 21:16 | RAD REPORT ---
EXAM DESCRIPTION: RADChest Single View12/05/2022 9:04 pm CLINICAL HISTORY: COUGH COMPARISON: Chest Single View dated 01/22/2021; Chest Single View dated 12/30/2020; Chest Single View dated 08/14/2020; Chest Pa And Lat (2 Views) dated 11/02/2019Chest Single View dated 11/06/2022; Chest S sandra View dated 08/04/2022; Chest Single View dated 11/23/2021; Chest Single View dated 06/04/2021 TECHNIQUE: Portable AP view of the chest. FINDINGS: Small patchy left upper to mid lung opacities, slightly progressive since the prior exam. Mild interstitial prominence is stable. No pneumothorax or effusion. The cardiomediastinal contours a re unremarkable. IMPRESSION: Small patchy left upper to mid lung airspace opacities, could reflect early pneumonia.
--- NOTE | 2022-12-05 21:56 | EDPHYS ---
Physician Documentation [facility] Name: Shan Faye Age: 37 yrs Sex: Male : 1985 Arrival Date: 12/05/2022 Time: 17:10 Bed 5 Private MD: [facility] ED Physician Juan Jose Palmer HPI: 12/05 18:03 This 37 yrs old Male presents to ER via Ambulatory with complaints of Numbness sp3 Of Arm, Cough. 18:03 37-year-old male well-known to the ER with history of CVA in the past, seizure disorder sp3 now presents with right-sided hyper flexion for 3 days off-and-on. Patient saw their neurologist Dr. 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 Patient has no headache, facial droop or facial symptoms, left-sided symptoms or any other symptoms at this time. Mom states that this comes and goes and sometimes "it is on the left and sometimes is on the right". No other symptoms noted. Patient did go to work today but had to leave early secondary to the hyperflexion symptoms.. Historical: - Allergies: 17:30 No Known Allergies; ss - Home Meds: 17:30 Keppra 750 mg Oral tab 2 tabs 2 times per day [Active]; ss - PMHx: 17:30 brain disorder; CVA; Seizure; ss - PSHx: 17:30 Cholecystectomy; ss - Immunization history:: Adult Immunizations up to date. - Social history:: Smoking status: Patient denies any tobacco usage or history of. ROS: 18:05 Constitutional: Negative for fever, chills, and weight loss, Eyes: Negative for injury, sp3 pain, redness, and discharge, Neck: Negative for injury, pain, and swelling, Cardiovascular: Negative for chest pain, palpitations, and edema, Respiratory: Negative for shortness of breath, cough, wheezing, and pleuritic chest pain, Abdomen/GI: Negative for abdominal pain, nausea, vomiting, diarrhea, and constipation, Skin: Negative for injury, rash, and discoloration, Allergy/Immunology: Negative for hives, rash, and allergies, Endocrine: Negative for neck swelling, polydipsia, polyuria, polyphagia, and marked weight changes. 18:05 All other systems are negative. Exam: 18:05 Constitutional: This is a well developed, well nourished patient who is awake, alert, sp3 and in no acute distress. Eyes: Pupils equal round and reactive to light, extra-ocular motions intact. Lids and lashes normal. Conjunctiva and sclera are non-icteric and not injected. Cornea within normal limits. Periorbital areas with no swelling, redness, or edema. ENT: Nares patent. No nasal discharge, no septal abnormalities noted. External auditory canals are clear. Oropharynx with no redness, swelling, or masses, exudates, or evidence of obstruction, uvula midline. Mucous membranes moist. Neck: Trachea midline, no thyromegaly or masses palpated, and no cervical lymphadenopathy. Supple, full range of motion without nuchal rigidity, or vertebral point tenderness. No Meningismus. Chest/axilla: Normal chest wall appearance and motion. Nontender with no deformity. No lesions are appreciated. Cardiovascular: Regular rate and rhythm with a normal S1 and S2. No gallops, murmurs, or rubs. Normal PMI, no JVD. No pulse deficits. Respiratory: Lungs have equal breath sounds bilaterally, clear to auscultation and percussion. No rales, rhonchi or wheezes noted. No increased work of breathing, no retractions or nasal flaring. Abdomen/GI: Soft, non-tender, with normal bowel sounds. No distension or tympany. No guarding or rebound. No evidence of tenderness throughout. Skin: Warm, dry with normal turgor. Normal color with no rashes, no lesions, and no evidence of cellulitis. Psych: Awake, alert, with orientation to person, place and time. Behavior, mood, and affect are within normal limits. 18:05 Neuro: Patient has hyperflexion of the right upper and right lower extremity with inability to fully extend secondary to the muscle flexion. No other neurologic abnormalities above baseline noted.. Vital Signs: 17:27 Pulse 97; Resp 16; Temp 97.5(TE); Pulse Ox 98% on R/A; Weight 95.25 kg; Height 5 ft. 5 ss in. (165.10 cm); Pain 0/10; 17:27 BP 129 / 94; ss 18:50 BP 154 / 100; Pulse 78; Resp 22; Pulse Ox 99% on R/A; vg1 19:35 BP 128 / 96; Pulse 89; Resp 20 S; Pulse Ox 97% on R/A; as6 21:16 BP 147 / 100; Pulse 82; Resp 18; Pulse Ox 99% ; mb9 17:27 Body Mass Index 34.95 (95.25 kg, 165.10 cm) ss MDM: 18:00 Patient medically screened. sp3 18:06 Data reviewed: vital signs, nurses notes, old medical records, lab test result(s), sp3 radiologic studies. ED course: 37-year-old with established neurological history who sees Dr. Arreola now here for hyperflexion and paralysis on the right side diagnosed as John's paralysis earlier this week. Will obtain CT scan of the head, laboratory values and general observation. I paged Dr. Arreola but am awaiting his callback. I believe patient has any acute emergency or critical pathway occurring at this time. If work-up is negative, we will safely discharge patient home with neurology close follow-up.. 18:39 ED course: Discussed with Dr. Arreola. He agrees that this is likely John's paralysis sp3 and there is no other intervention to be done. If the work-up is negative including CT head, we should be able to safely discharge him home. He asked that we load him with fosphenytoin 500 mg x 1 prior to discharge.. 18:40 ED course: Patient will be signed out to night physician for final disposition and sp3 follow-up of studies as well as reevaluation.. 21:49 Differential diagnosis: Partial paralysis right side, John's paralysis, atypical sp4 epilepsy. ED course: Work-up today is unremarkable, patient was given IV Cerebyx in ER, patient was discussed with neurologist Dr. Skinner who advised observation in the hospital and will assist patient in the morning. Dr. Arreola requested that antiepileptics should be continued in the hospital.. 12/05 17:59 Order name: CBC with Diff sp3 12/05 17:59 Order name: CMP sp3 12/05 17:59 Order name: Lipase sp3 12/05 17:59 Order name: IV Saline Lock; Complete Time: 18:31 sp3 12/05 17:59 Order name: Labs collected and sent; Complete Time: 18:31 sp3 12/05 17:59 Order name: PT-INR sp3 12/05 17:59 Order name: CT Head Brain wo Cont sp3 12/05 17:59 Order name: Seizure Precautions; Complete Time: 18:31 sp3 12/05 17:59 Order name: Monitor; Complete Time: 18:31 sp3 12/05 17:59 Order name: Pulse Ox Monitoring; Complete Time: 18:31 sp3 12/05 18:42 Order name: CBC with Automated Diff; Complete Time: 20:22 EDMS 12/05 18:46 Order name: CXR XRAY sp3 12/05 18:47 Order name: Protime (+INR); Complete Time: 20:22 EDMS 12/05 18:57 Order name: Comprehensive Metabolic Panel; Complete Time: 20:22 EDMS 12/05 18:57 Order name: Lipase; Complete Time: 20:22 EDMS 12/05 19:12 Order name: CT; Complete Time: 20:22 EDMS 12/05 21:17 Order name: RAD EDMS Administered Medications: 18:55 Drug: Fosphenytoin 500 mg Route: IVPB; Site: left antecubital; vg1 22:09 Follow up: Response: No adverse reaction; IV Status: Completed infusion; IV Intake: as6 100ml 22:09 Drug: Acetaminophen-Codeine (300 mg-30 mg) 2 tabs Route: PO; as6 22:09 Follow up: Response: No adverse reaction as6 Disposition Summary: 12/05/22 21:55 Discharge Ordered Location: Home sp4 Problem: new sp4 Symptoms: have improved sp4 Condition: Stable sp4 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) 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 Followup: sp4 - With: Private Physician - When: 1 - 2 days - Reason: Re-evaluation by your physician Discharge Instructions: - Discharge Summary Sheet sp4 - Seizure, Adult sp4 - Cough, Adult sp4 Forms: - Work release form vc1 - Medication Reconciliation Form sp4 - Thank You Letter sp4 - Antibiotic Education sp4 - Prescription Opioid Use sp4 Prescriptions: - dextromethorphan HBr 15 mg/5 mL Oral syrup - take 10 milliliter by ORAL route every 6-8 hours as needed; 89 milliliter; sp4 Refills: 0, Product Selection Permitted - Tessalon Perles 100 mg Oral Capsule - take 1 capsule by ORAL route every 8 hours As needed; 15 capsule; Refills: 0, sp4 Product Selection Permitted Signatures: Dispatcher [employer] Shayna Blank RN RN ss Ani Hudson RN RN vg1 Ariana Allen MD MD sp3 Kyree Partida RN RN as6 Juan Jose Palmer MD MD sp4
--- NOTE | 2022-12-05 21:56 | ER ---
Nurse's Notes [facility] Name: Shan Faye Age: 37 yrs Sex: Male : 1985 Arrival Date: 12/05/2022 Time: 17:10 Bed 5 Private MD: Jethro Allen Diagnosis: Epileptic seizures related to external causes;John's paralysis (postepileptic) Presentation: 12/05 17:27 Chief complaint: Patient states: Cough that began Wednesday. Episodes of unilateral ss paralysis that has been ongoing since Wednesday as well. Pt saw Dr. Arreola days ago and diagnosed patient with John's paralysis. Coronavirus screen: Client denies travel out of the [place] in the last 14 days. Ebola Screen: Patient denies exposure to infectious person. Patient denies travel to an Ebola-affected area in the 21 days before illness onset. Initial Sepsis Screen: Does the patient meet any 2 criteria? No. Patient's initial sepsis screen is negative. Does the patient have a suspected source of infection? No. Patient's initial sepsis screen is negative. Risk Assessment: Do you want to hurt yourself or someone else? Patient reports no desire to harm self or others. Onset of symptoms was December 02, 2022. 17:27 Method Of Arrival: Ambulatory ss 17:27 Acuity: PAULINE 3 ss Historical: - Allergies: 17:30 No Known Allergies; ss - Home Meds: 17:30 Keppra 750 mg Oral tab 2 tabs 2 times per day [Active]; ss - PMHx: 17:30 brain disorder; CVA; Seizure; ss - PSHx: 17:30 Cholecystectomy; ss - Immunization history:: Adult Immunizations up to date. - Social history:: Smoking status: Patient denies any tobacco usage or history of. Screenin:34 [facility] ED Fall Risk Assessment (Adult) History of falling in the last 3 months, vg1 including since admission No falls in past 3 months (0 pts) Confusion or Disorientation No (0 pts) Intoxicated or Sedated No (0 pts) Impaired Gait No (0 pts) Mobility Assist Device Used No (0 pt) Altered Elimination No (0 pt) Score/Fall Risk Level 0 - 2 = Low Risk Oriented to surroundings, Maintained a safe environment, Educated pt \T\ family on fall prevention, incl call for assistance when getting out of bed, Assessed \T\ reinforced patient's understanding of fall precautions. Abuse screen: Denies threats or abuse. Denies injuries from another. Nutritional screening: No deficits noted. Tuberculosis screening: No symptoms or risk factors identified. Assessment: 18:13 General: Appears in no apparent distress. comfortable, Behavior is calm, cooperative. vg1 Pain: Denies pain. Neuro: Level of Consciousness is awake, alert, obeys commands, Oriented to person, place, time, situation, Control Director are weak on right Weakness in right hand(s) leg(s) Speech is normal, Facial symmetry appears normal. Cardiovascular: Patient's skin is warm and dry. Respiratory: Airway is patent Respiratory effort is even, unlabored. GI: No signs and/or symptoms were reported involving the gastrointestinal system. : No signs and/or symptoms were reported regarding the genitourinary system. EENT: No signs and/or symptoms were reported regarding the EENT system. Derm: Skin is pink, warm \T\ dry. Musculoskeletal: Range of motion: limited in Right arm and right leg. 18:22 Reassessment: appeared to be seizing that lasted approximately 15 seconds; provider vg1 notified. 18:57 Reassessment: Mother at bedside, stated pt appeared to be seizing and lasted about 10 vg1 seconds. 19:36 General: pillow given, lights dimmed, encouraged pt to rest, mother at bedside . as6 21:18 General: Appears in no apparent distress. comfortable, Behavior is calm, cooperative. mb9 Pain: Denies pain. Neuro: Level of Consciousness is awake, alert, obeys commands, Oriented to person, place, time, situation, Denies weakness. Respiratory: Airway is patent Respiratory effort is even, unlabored. Derm: Skin is pink, warm \T\ dry. Vital Signs: 17:27 Pulse 97; Resp 16; Temp 97.5(TE); Pulse Ox 98% on R/A; Weight 95.25 kg; Height 5 ft. 5 ss in. (165.10 cm); Pain 0/10; 17:27 BP 129 / 94; ss 18:50 BP 154 / 100; Pulse 78; Resp 22; Pulse Ox 99% on R/A; vg1 19:35 BP 128 / 96; Pulse 89; Resp 20 S; Pulse Ox 97% on R/A; as6 21:16 BP 147 / 100; Pulse 82; Resp 18; Pulse Ox 99% ; mb9 17:27 Body Mass Index 34.95 (95.25 kg, 165.10 cm) ED Course: 17:10 Patient arrived in ED. am2 17:11 Jethro Allen DO is Private Physician. am2 17:30 Triage completed. ss 17:30 Arm band placed on left wrist. ss 17:47 Ani Hudson, RN is Primary Nurse. vg1 17:51 Ariana Allen MD is Attending Physician. sp3 17:[address] Hodgson called on his cell/ message left to call Dr. Allen as soon as eb he can. 18:25 Initial lab(s) drawn, by me, sent to lab. Inserted saline lock: 20 gauge in left vg1 antecubital area, using aseptic technique. Blood collected. 18:25 No provider procedures requiring assistance completed. vg1 18:34 Patient has correct armband on for positive identification. Placed in gown. Bed in low vg1 position. Call light in reach. Side rails up X2. Adult w/ patient. Seizure precautions initiated. 19:34 Primary Nurse role handed off by Ani Hudson RN wm 19:35 Kyree Partida, PILLO is Primary Nurse. as6 20:21 Attending Physician role handed off by Ariana Allen MD sp4 20:21 Juan Jose Palmer MD is Attending Physician. sp4 22:10 IV discontinued, intact, bleeding controlled, No redness/swelling at site. Pressure as6 dressing applied. Administered Medications: 18:55 Drug: Fosphenytoin 500 mg Route: IVPB; Site: left antecubital; vg1 22:09 Follow up: Response: No adverse reaction; IV Status: Completed infusion; IV Intake: as6 100ml 22:09 Drug: Acetaminophen-Codeine (300 mg-30 mg) 2 tabs Route: PO; as6 22:09 Follow up: Response: No adverse reaction as6 Medication: 18:35 VIS not applicable for this client. vg1 Intake: 22:09 IV: 100ml; Total: 100ml. as6 Outcome: 21:55 Discharge ordered by . sp4 22:09 Discharged to home ambulatory, with family. as6 22:09 Condition: stable 22:09 Discharge instructions given to patient, family, Instructed on discharge instructions, follow up and referral plans. medication usage, Demonstrated understanding of instructions, follow-up care, medications, Prescriptions given X 2. 22:10 Patient left the ED. as6 Signatures: Shayna Huerta, RN RN ss Alee Dubose am2 Janey Mckinney Victoria, RN RN vg1 Raquel Jean Baptiste Setul, MD MD sp3 Kyree Partida RN RN as6 Corinna Anne RN RN mb9 Juan Jose Palmer MD MD sp4
[2022-12-05] MEDS ORDERED: CODEINE 30MG/APAP 300MG TAB ONE (22:08)
[2022-12-05 22:54] VITALS: TEMP 97.5
[2022-12-05 22:57] VITALS: BP 147/100; O2SAT 99
== END 2022-12-05 22:10 | disposition home or self-care (01) ==
LOC: ER 17:09
DX: G40.509 Epileptic seizures related to external causes, not intractable, without status epilepticus (principal); G83.84 Todd's paralysis (postepileptic)
CPT/HCPCS: 96365; 85025; 36415; 85610; 83690; 80053; 70450; 71045; 99284; 96366; Q2009

== ENCOUNTER 2022-12-16 15:06 | Emergency (ER) | payer OTHER ==
--- OUTSIDE RECORDS SUMMARY | 2022-12-16 15:23 | XMS REPORT | Continuity of Care Document ---
:1985 Author Organization Formerly [facility] t Address [address] [facility]. [address] [place] [address] Care Team Providers Name Role Phone Jethro Allen Attending Clinician Unavailable Payers Payer Name Policy Type Policy Number Effective Date Expiration Date Elver yanes [place] [id number] 2015 [employer] 00:00:00 Spirit - [facility] Problems Condition Condition Condition Status Onset Resolution Last Treating Co mments Source Name Details Category Date Date Treatment Clinician Date SEIZURES SEIZURES Diagnosis Active 2011-102012-08-20 Memoria Active 10-20 17:32:00 l 08/20/2012 00:00: Jake denise [address] [id number] Type 2 Problem Active Common diabetes Spirit mellitus - [facility] with [facility] [id number] IRENE Problem Active Common (generaliz Spirit ed anxiety - [facility] disorder) [facility] [id number] Current Problem Active Common moderate Spirit episode of - [facility] major 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 Social History Social Habit Start Date Stop Date Quantity Comments Source History of Tobacco Use Co mmon Spirit - [facility] Sex Assigned At Com mon Spirit - [facility] Smoking Status Start Date Stop Date Source Never Smoker Common [facility] Medications Ordered Filled Start Stop Current Ordering Indication Dosage Frequency Signature Comments Components Source Medication Medication Date Date Medication? Clinician (SIG) [facility]10 Yes Tatyana 750 mg, 3 Mem oria [...] Chambers mL, Route: l Chloride 03:49: IVPB, Downey 0.9% IV 50 00 ONCE, mL Start date: 08/20/12 21:49:00, Stop date: 08/20/12 21:49:00 Depacon + 2011-10 No Terri A 500 mg, 5 Memoria Sodium 1-18 Chambers mL, Route: l Chloride 03:49: IVPB, Downey 0.9% IV 50 00 ONCE, mL Start [...] 2011-10 No Tatyana 500 mg, Memor ia 118 Jessica Route: IV, l 03:17: Jose David [...] Route: IV, l 03:17: Jose David ONCE, Downey 00 Dosing Weight 72.727, kg, Start date: 08/20/12 21:17:00, Stop date: 08/20/12 21:17:00 Depakote 2011-10 No Tatyana 500 mg, Memor ia 1-18 Jessica Route: IV, l 03:17: Jose David ONCE, Downey 00 Dosing Weight 72.727, kg, Start date: 08/20/12 21:17:00, Stop date: 08/20/12 21:17:00 Depakote 2011-10 No Tatyana 500 mg, Drakeor ia 10-21 Jessica Route: IV, l 03:17: Jose David ONCE, Downey Dosing Weight 72.727, kg, Start date: 08/20/12 21:17:00, Stop date: 08/20/12 21:17:00 Depakote ER 2011-10 Yes 500 mg, 1 M emoria 500 mg oral 1-17 tab, PO, l tablet, 22:02: BID, 30 Chase extended 13 tab, release Substituti on Allowed, ERTAB Depakote ER 2011-10 Yes 500 mg, 1 M emoria 500 mg oral 1-17 tab, PO, l tablet, 22:02: BID, 30 Downey extended 13 tab, release Substituti on Allowed, [...] Fycompa 10 Common MG MG MG [facility] BusPIRone BusPIRone No 1{table TID BusPIRone Common HCl 5 MG HCl 5 MG t} HCl 5 MG Spi rit [facility] Lantus 100 Lantus 100 No BID Lantus 100 Common UNIT/ML UNIT/ML UNIT/ML [facility] Citalopram Citalopram No 1{table QD Citalopram Common Hydrobromid Hydrobromid t} Hydrobromi Spirit e 20 MG e 20 MG de 20 MG [facility] Latuda 20 Latuda 20 No 1{table QD Latuda 20 Common MG MG t} MG [facility] Keppra Keppra No Keppra Common [facility] Fycompa 10 Fycompa 10 No BID Fycompa 10 MG MG MG Lantus 100 Lantus 100 No BID Lantus 100 UNIT/ML UNIT/ML UNIT/ML Eliquis 5 Eliquis 5 No 1{table BID Eliquis 5 MG MG t} MG Vital Signs Vital Name Observation Time Observation Value Comments Source height 2020-10-15 10:20:00 65 [in_i] [facility] weight 2020-10-15 10:20:00 180 [lb_av] [facility] temperature 2020-10-15 10:20:00 98.7 [degF] [facility] bmi 2020-10-15 10:20:00 29.95 kg/m2 [facility] blood pressure 2020-10-15 10:20:00 131 mm[Hg] Common Spirit - systolic [facility] blood pressure 2020-10-15 10:20:00 74 mm[Hg] Common Spirit - diastolic [facility] Weight 2012-08-20 21:07:00 [facility] Height 2012-08-20 21:07:00 165.10 cm [facility] Procedures This patient has no known procedures. Encounters Start End Encounter Admission Attending Care Care Encounter Source Date/Time Date/Time Type Type Clinicians Facility Department ID 2022-12-04 Outpatient Allen, STLMLC STLMLC [id number] Common 11:14:01 Jethro [id number] [facility] 2022-07-02 Outpatient [facility] [id number] [place] 04:48:12 [id number] [facility] 2021-10-29 Outpatient Allen, STLMLC STLMLC [id number] Common 12:21:25 Jethro [id number] [facility] 2021-10-29 Outpatient Allen, STLMLC STLMLC [id number] Common 12:19:51 Jethro [id number] [facility] 2021-10-29 Outpatient Allen, STLMLC STLMLC [id number] Common 12:16:00 [facility] [address] [facility] 2020-10-15 2020-10-15 OFFICE STLMLC STLMLC [id number] Co mmon 00:00:00 00:00:00 VISIT NEW [facility] it PT LEVEL 3 [facility] 2020-09-25 2020-09-25 (TEL) STLMLC STLMLC [id number] Co mmon 00:00:00 00:00:00 [facility] 2012-08-20 2012-08-20 [facility] [id number] Memoria 15:06:00 23:52:[address] 2012-08-20 2012-08-20 Emergency [facility] [id number] Memoria 15:06:00 23:52:[address] Results Test Description Test Time Test Comments Results Result Comments Source CHEMISTRY 2012-08-20 22:46:00 Test Item Value Reference Range Interpretation Comme nts Valproic Acid Lvl (test code = Valproic Acid Lvl) 128 50-1 00 [facility]perrmXHUTSVHHI5225-14-44 22:46:00 Test Item Value Reference Range Interpretation Comments Valproic Acid Lvl (test code = Valproic 128 50-100 H Acid Lvl) [facility] CenterPgxgwfbXYUYFPFAF4525-93-53 22:46:00 Test Item Value Reference Range Interpretation Comments Valproic Acid Lvl (test code = Valproic 128 50-100 H Acid Lvl) [facility] CenterVlcdohqGDJDGAEXG4311-81-37 22:46:00 Test Item Value Reference Range Interpretation Comments Valproic Acid Lvl (test code = Valproic 128 50-100 H Acid Lvl) [facility] CenterEuyujerROVTNAYKZ5067-35-25 22:46:00 Test Item Value Reference Range Interpretation Comments Valproic Acid Lvl (test code = Valproic 128 50-100 H Acid Lvl) [facility] CenterXwrimxbQEURGOMOY1184-96-51 22:46:00 Test Item Value Reference Range Interpretation Comments Valproic Acid Lvl (test code = Valproic 128 50-100 H Acid Lvl) [facility]ZxagskkSNWFXECVCU6316-68-07 22:42:00 Test Item Value Reference Range Interpretation Comments MPV (test code = MPV) 9.0 7.4-10.4 N [facility]ervilleKitxzklJJTSIXLNPV5746-87-95 22:42:00 Test Item Value Reference Range Interpretation Comments MCH (test code = MCH) 30.3 pg 27.0-31.0 N [facility]ervilleWsxkpzoKPBPNNYDII4593-68-14 22:42:00 Test Item Value Reference Range Interpretation Comments MCHC (test code = MCHC) 33.5 32.0-36.0 N [facility]ervilleLqfmtknHKFYGBPQGY8570-09-43 22:42:00 Test Item Value Reference Range Interpretation Comments Platelet (test code = Platelet) 204 133-450 N [facility]ervilleYwcydpbSRDWQFZWJD6647-46-88 22:42:00 Test Item Value Reference Range Interpretation Comments RDW (test code = RDW) 12.0 11.5-14.5 N [facility]ervilleJxieptnWHUONISQWF8767-50-92 22:42:00 Test Item Value Reference Range Interpretation Comments RBC (test code = RBC) 4.38 4.70-6.10 L [facility]ervilleKtcnsybOCIMSHMXTY3854-28-91 22:42:00 Test Item Value Reference Range Interpretation Comments WBC (test code = WBC) 8.0 3.7-10.4 N [facility]ervilleCbvlkxqYVOYVGQWSS2883-17-71 22:42:00 Test Item Value Reference Range Interpretation Comments MCV (test code = MCV) 90.5 80.0-94.0 N [facility]ervilleUiqbyplHRSEAUSSWS7595-96-27 22:42:00 Test Item Value Reference Range Interpretation Comments Hgb (test code = Hgb) 13.3 14.0-18.0 L [facility] CenterTqdfygbDHPCZLZPH9024-74-57 22:42:00 Test Item Value Reference Range Interpretation Comments Sodium Lvl (test code = Sodium Lvl) 140 135-145 N [facility]ervilleSnzvelzQOYSYUJXYF2178-30-39 22:42:00 Test Item Value Reference Range Interpretation Comments Hct (test code = Hct) 39.7 42.0-54.0 L [facility] CenterRpxmwgcZZYOTHJYA8827-48-24 22:42:00 Test Item Value Reference Range Interpretation Comments BUN (test code = BUN) 13 7-22 N [facility] CenterDiaylodTXFDYBYQC4168-08-19 22:42:00 Test Item Value Reference Range Interpretation Comments Glucose Lvl (test code = Glucose Lvl) 83 70-99 N [facility] CenterOzqydlpGJSQEHLPZ5376-12-21 22:42:00 Test Item Value Reference Range Interpretation Comments Creatinine Lvl (test code = Creatinine 0.7 0.5-1.4 N Lvl) [facility] CenterYoenwspFVXTLVTIR8352-50-77 22:42:00 Test Item Value Reference Range Interpretation Comments Calcium Lvl (test code = Calcium Lvl) 9.3 8.5-10.5 N [facility] CenterEjqalqjAXMIGISTV0168-75-51 22:42:00 Test Item Value Reference Range Interpretation Comments CO2 (test code = CO2) 31 24-32 N [facility] CenterNatbesySJINSWFBV3236-60-93 22:42:00 Test Item Value Reference Range Interpretation Comments AGAP (test code = AGAP) 11.0 10.0-20.0 N [facility] CenterLsrincqPKGWKWVGC5496-36-83 22:42:00 Test Item Value Reference Range Interpretation Comments eGFR (test code = eGFR) 131 [facility] CenterIunlnkgOTIZFTJFD1561-53-18 22:42:00 Test Item Value Reference Range Interpretation Comments Sodium Lvl (test code = Sodium Lvl) 140 135-145 N [facility] CenterKsbnrfjBABMRRMGM3450-25-25 22:42:00 Test Item Value Reference Range Interpretation Comments Creatinine Lvl (test code = Creatinine 0.7 0.5-1.4 N Lvl) [facility] CenterHpogjlwCLCAUSBXD5293-69-84 22:42:00 Test Item Value Reference Range Interpretation Comments Potassium Lvl (test code = Potassium 5.0 3.5-5.1 N Lvl) [facility] CenterFxojmekGUULZWCPD7131-03-90 22:42:00 Test Item Value Reference Range Interpretation Comments Chloride Lvl (test code = Chloride Lvl) 103 95-109 N [facility] CenterMhamngjMBJHLIRTC5722-18-31 22:42:00 Test Item Value Reference Range Interpretation Comments Phosphorus (test code = Phosphorus) 4.7 2.5-4.5 H [facility] CenterDjwxvqgFPHPIDUAZ9116-38-59 22:42:00 Test Item Value Reference Range Interpretation Comments Magnesium Lvl (test code = Magnesium 1.8 1.8-2.4 N Lvl) [facility] CenterAkcqjwyYTIKRLFMI1268-50-90 22:42:00 Test Item Value Reference Range Interpretation Comments Potassium Lvl (test code = Potassium 5.0 3.5-5.1 N Lvl) [facility]ervilleEekdoslXMAGZXMKGL9234-83-30 22:42:00 Test Item Value Reference Range Interpretation Comments Basophils # (test code 0.1 See_Comment N [Aut omated message] The = Basophils #) system which generated this result tra nsmitted reference range : <=0.2. The reference r terri was not used to int erpret this result as normal/abnormal . [facility]ervilleXpbdzbaCESQGCWYQR5226-50-35 22:42:00 Test Item Value Reference Range Interpretation Comments Lymphocytes # (test code = Lymphocytes 2.5 1.0-5.5 N #) [facility]ervilleHbcpawoHXHSGMUSWK1616-15-64 22:42:00 Test Item Value Reference Range Interpretation Comments Basophils (test code = 0.7 See_Comment N [Aut omated message] The Basophils) system which ge nerated this result tra nsmitted reference range : <=1.0. The reference r terri was not used to int erpret this result as normal/abnormal . [facility]ervilleLyqbpyiGMFQWRPSZC4511-53-89 22:42:00 Test Item Value Reference Range Interpretation Comments Monocytes # (test code 0.4 See_Comment N [Aut omated message] The = Monocytes #) system which generated this result tra nsmitted reference range : <=0.8. The reference r terri was not used to int erpret this result as normal/abnormal . [facility]ervilleBnmmrtiDLHDDPGEFA6524-38-06 22:42:00 Test Item Value Reference Range Interpretation Comments Segs-Bands # (test code = Segs-Bands #) 4.9 1.5-8.1 N [facility]ervilleRzddbzsAISSRJLIHC8437-53-74 22:42:00 Test Item Value Reference Range Interpretation Comments Eosinophils (test code = 1.0 See_Comment N [A utomated message] The Eosinophils) system which ge nerated this result tra nsmitted reference range : <=4.0. The reference r terri was not used to int erpret this result as normal/abnormal . [facility]ervillePixbrpxXFGNWVNGEI4478-51-07 22:42:00 Test Item Value Reference Range Interpretation Comments Eosinophils # (test code 0.1 See_Comment N [A utomated message] The = Eosinophils #) system whic h generated this result tra nsmitted reference range : <=0.5. The reference r terri was not used to int erpret this result as normal/abnormal . [facility]ervilleYfchsocRUZETZWFFV3642-46-06 22:42:00 Test Item Value Reference Range Interpretation Comments Monocytes (test code = Monocytes) 5.0 2.0-12.0 N [facility]ervilleEkdsuqzDYENJIUIDF5699-49-94 22:42:00 Test Item Value Reference Range Interpretation Comments Lymphocytes (test code = Lymphocytes) 31.3 20.0-40.0 N [facility]ervilleUooxxgkRYSPSISSGT9263-20-06 22:42:00 Test Item Value Reference Range Interpretation Comments Segs (test code = Segs) 62.0 45.0-75.0 N [facility] CenterJdbxlyvVMJVEKMXY7496-11-99 22:42:00 Test Item Value Reference Range Interpretation Comments Chloride Lvl (test code = Chloride Lvl) 103 95-109 N [facility]ugervilleHpgallaHGSVUAHRXZ1108-44-63 22:42:00 Test Item Value Reference Range Interpretation Comments MPV (test code = MPV) 9.0 7.4-10.4 N [facility]ervilleIxqqeeoJRFICBJWJQ0741-35-75 22:42:00 Test Item Value Reference Range Interpretation Comments MCH (test code = MCH) 30.3 pg 27.0-31.0 N [facility]ervilleElooeqxVWXAIUOVYH7343-60-10 22:42:00 Test Item Value Reference Range Interpretation Comments MCHC (test code = MCHC) 33.5 32.0-36.0 N [facility]ervilleTvtbdzcDAXWOIBBAH5922-64-50 22:42:00 Test Item Value Reference Range Interpretation Comments Platelet (test code = Platelet) 204 133-450 N [facility]ervilleVwetsmjQAYCQFPYXP1277-51-27 22:42:00 Test Item Value Reference Range Interpretation Comments RDW (test code = RDW) 12.0 11.5-14.5 N [facility]ervilleDykawvjXOZBWUTPXT4528-30-41 22:42:00 Test Item Value Reference Range Interpretation Comments RBC (test code = RBC) 4.38 4.70-6.10 L [facility]ervilleCeloclsIFFJLZPPCK8319-25-80 22:42:00 Test Item Value Reference Range Interpretation Comments WBC (test code = WBC) 8.0 3.7-10.4 N [facility]ervilleXpqfsorRPGQLMNFHH8051-87-54 22:42:00 Test Item Value Reference Range Interpretation Comments MCV (test code = MCV) 90.5 80.0-94.0 N [facility]ervilleDiwhuuiXEBOZUWDCG5939-47-37 22:42:00 Test Item Value Reference Range Interpretation Comments Hgb (test code = Hgb) 13.3 14.0-18.0 L [facility]ervilleXxyrgduBLQXCHELTX6480-53-08 22:42:00 Test Item Value Reference Range Interpretation Comments Hct (test code = Hct) 39.7 42.0-54.0 L [facility] CenterXhhhhzkWKSZROMWB8980-14-19 22:42:00 Test Item Value Reference Range Interpretation Comments Phosphorus (test code = Phosphorus) 4.7 2.5-4.5 H [facility] CenterMoysrgbZMDVXOOJB6873-11-99 22:42:00 Test Item Value Reference Range Interpretation Comments Magnesium Lvl (test code = Magnesium 1.8 1.8-2.4 N Lvl) [facility]ervilleObaovppAUNKDUTRBM4770-71-85 22:42:00 Test Item Value Reference Range Interpretation Comments Basophils # (test code 0.1 See_Comment N [Aut omated message] The = Basophils #) system which generated this result tra nsmitted reference range : <=0.2. The reference r terri was not used to int erpret this result as normal/abnormal . [facility]ervilleCrhriroIHCLRTPEVT9690-51-75 22:42:00 Test Item Value Reference Range Interpretation Comments Lymphocytes # (test code = Lymphocytes 2.5 1.0-5.5 N #) [facility]ervilleXbvjreaTKXLCXXVRF0002-64-22 22:42:00 Test Item Value Reference Range Interpretation Comments Basophils (test code = 0.7 See_Comment N [Aut omated message] The Basophils) system which ge nerated this result tra nsmitted reference range : <=1.0. The reference r terri was not used to int erpret this result as normal/abnormal . [facility]ervilleIfenrnpAWMKQLHWGX0101-31-05 22:42:00 Test Item Value Reference Range Interpretation Comments Monocytes # (test code 0.4 See_Comment N [Aut omated message] The = Monocytes #) system which generated this result tra nsmitted reference range : <=0.8. The reference r terri was not used to int erpret this result as normal/abnormal . [facility]ervilleJlyakyiNVABDNXJEL7653-74-70 22:42:00 Test Item Value Reference Range Interpretation Comments Segs-Bands # (test code = Segs-Bands #) 4.9 1.5-8.1 N [facility]ervilleAemnjjvRYFJDLJNRA3902-22-91 22:42:00 Test Item Value Reference Range Interpretation Comments Eosinophils (test code = 1.0 See_Comment N [A utomated message] The Eosinophils) system which ge nerated this result tra nsmitted reference range : <=4.0. The reference r terri was not used to int erpret this result as normal/abnormal . [facility]ervilleOtjawvtCJMXQCLEHI8821-45-04 22:42:00 Test Item Value Reference Range Interpretation Comments Eosinophils # (test code 0.1 See_Comment N [A utomated message] The = Eosinophils #) system whic h generated this result tra nsmitted reference range : <=0.5. The reference r terri was not used to int erpret this result as normal/abnormal . [facility]ervilleDhnyfstBRYBCUHAWU8844-03-65 22:42:00 Test Item Value Reference Range Interpretation Comments Monocytes (test code = Monocytes) 5.0 2.0-12.0 N [facility]ervilleEimmveuMLQQNUGORF3735-95-33 22:42:00 Test Item Value Reference Range Interpretation Comments Lymphocytes (test code = Lymphocytes) 31.3 20.0-40.0 N [facility]ervilleWzilqykCXVKGSMAXE2766-75-22 22:42:00 Test Item Value Reference Range Interpretation Comments Segs (test code = Segs) 62.0 45.0-75.0 N [facility]ervilleTozknocLYWUOLMAWD3147-22-61 22:42:00 Test Item Value Reference Range Interpretation Comments MPV (test code = MPV) 9.0 7.4-10.4 N [facility]ervilleSchjimcPASUJUJIVR7579-43-39 22:42:00 Test Item Value Reference Range Interpretation Comments MCH (test code = MCH) 30.3 pg 27.0-31.0 N [facility]ervilleXampwylAOTRDQSMTL1406-40-41 22:42:00 Test Item Value Reference Range Interpretation Comments MCHC (test code = MCHC) 33.5 32.0-36.0 N [facility]ervilleVaxncskGUNVODXLEJ5715-04-84 22:42:00 Test Item Value Reference Range Interpretation Comments Platelet (test code = Platelet) 204 133-450 N [facility]ervilleSpqlggaGWQYQDAVYW1200-94-42 22:42:00 Test Item Value Reference Range Interpretation Comments RDW (test code = RDW) 12.0 11.5-14.5 N [facility]ervilleLkrmgvvELYGDURVLR9365-15-45 22:42:00 Test Item Value Reference Range Interpretation Comments RBC (test code = RBC) 4.38 4.70-6.10 L [facility]ervillePxucjajJEYUSJLSWP2788-64-12 22:42:00 Test Item Value Reference Range Interpretation Comments WBC (test code = WBC) 8.0 3.7-10.4 N [facility]ervilleDhlkoeiNFXSFFSPTK3045-75-79 22:42:00 Test Item Value Reference Range Interpretation Comments MCV (test code = MCV) 90.5 80.0-94.0 N [facility]ervilleAcpskkkVMZHHNOHJW3692-49-06 22:42:00 Test Item Value Reference Range Interpretation Comments Hgb (test code = Hgb) 13.3 14.0-18.0 L [facility]ervilleCrjaxpvNBBRJRQFQU2974-58-48 22:42:00 Test Item Value Reference Range Interpretation Comments Hct (test code = Hct) 39.7 42.0-54.0 L [facility] CenterDchsfffLJKPDNFVM2304-68-65 22:42:00 Test Item Value Reference Range Interpretation Comments BUN (test code = BUN) 13 7-22 N [facility] CenterTtzkwjrOGWMQDKBF4096-36-48 22:42:00 Test Item Value Reference Range Interpretation Comments Glucose Lvl (test code = Glucose Lvl) 83 70-99 N [facility] CenterCgprzcjDNWDRQZHD1904-18-53 22:42:00 Test Item Value Reference Range Interpretation Comments Calcium Lvl (test code = Calcium Lvl) 9.3 8.5-10.5 N [facility] CenterEfjtxnfYSLMQBMUT0029-02-62 22:42:00 Test Item Value Reference Range Interpretation Comments CO2 (test code = CO2) 31 24-32 N [facility] CenterJdhrdtdNUHVIXYUH6642-50-33 22:42:00 Test Item Value Reference Range Interpretation Comments AGAP (test code = AGAP) 11.0 10.0-20.0 N [facility] CenterPqimbpvJMZGFAWQQ3275-85-57 22:42:00 Test Item Value Reference Range Interpretation Comments eGFR (test code = eGFR) 131 [facility] CenterOnyrkdnKHJPAIANZ7581-24-74 22:42:00 Test Item Value Reference Range Interpretation Comments Sodium Lvl (test code = Sodium Lvl) 140 135-145 N [facility] CenterOkzuznfDSUJQBFYV1391-83-64 22:42:00 Test Item Value Reference Range Interpretation Comments Creatinine Lvl (test code = Creatinine 0.7 0.5-1.4 N Lvl) [facility] CenterSjugolyZGNETTVLP4151-33-96 22:42:00 Test Item Value Reference Range Interpretation Comments Potassium Lvl (test code = Potassium 5.0 3.5-5.1 N Lvl) [facility] CenterAfjxxztNVUUESMIW4855-90-25 22:42:00 Test Item Value Reference Range Interpretation Comments Chloride Lvl (test code = Chloride Lvl) 103 95-109 N [facility] CenterEnenahfWTZNHFMYI4774-62-97 22:42:00 Test Item Value Reference Range Interpretation Comments Phosphorus (test code = Phosphorus) 4.7 2.5-4.5 H [facility] CenterTyeywanJCTMBXZJP4829-16-87 22:42:00 Test Item Value Reference Range Interpretation Comments Magnesium Lvl (test code = Magnesium 1.8 1.8-2.4 N Lvl) [facility]ervilleCezxbeuFXALSGWWPJ3689-16-71 22:42:00 Test Item Value Reference Range Interpretation Comments Basophils # (test code 0.1 See_Comment N [Aut omated message] The = Basophils #) system which generated this result tra nsmitted reference range : <=0.2. The reference r terri was not used to int erpret this result as normal/abnormal . [facility] [facility]VoygmxhXUBYGNBCUI4643-33-22 22:42:00 Test Item Value Reference Range Interpretation Comments Lymphocytes # (test code = Lymphocytes 2.5 1.0-5.5 N #) [facility] [place]EorbuijJFVVKBOFZB0745-18-74 22:42:00 Test Item Value Reference Range Interpretation Comments Basophils (test code = 0.7 See_Comment N [Aut omated message] The Basophils) system which ge nerated this result tra nsmitted reference range : <=1.0. The reference r terri was not used to int erpret this result as normal/abnormal . [facility] [place]QyyinpnZVKFRZBLGA2785-01-54 22:42:00 Test Item Value Reference Range Interpretation Comments Monocytes # (test code 0.4 See_Comment N [Aut omated message] The = Monocytes #) system which generated this result tra nsmitted reference range : <=0.8. The reference r terri was not used to int erpret this result as normal/abnormal . [facility] [place]KujxkvbSMCZZNCCKI1022-59-23 22:42:00 Test Item Value Reference Range Interpretation Comments Segs-Bands # (test code = Segs-Bands #) 4.9 1.5-8.1 N [facility] [place]PyefcfbNOGZQXYNHX1682-05-34 22:42:00 Test Item Value Reference Range Interpretation Comments Eosinophils (test code = 1.0 See_Comment N [A utomated message] The Eosinophils) system which ge nerated this result tra nsmitted reference range : <=4.0. The reference r terri was not used to int erpret this result as normal/abnormal . [facility] [place]JdisfeaUNVEMZVCBR9985-97-10 22:42:00 Test Item Value Reference Range Interpretation Comments Eosinophils # (test code 0.1 See_Comment N [A utomated message] The = Eosinophils #) system whic h generated this result tra nsmitted reference range : <=0.5. The reference r terri was not used to int erpret this result as normal/abnormal . [facility] [place]YzdcpqcINNBLENRHN3518-54-34 22:42:00 Test Item Value Reference Range Interpretation Comments Monocytes (test code = Monocytes) 5.0 2.0-12.0 N [facility] [place]OfqphpkIQHWXUPHCU7804-87-79 22:42:00 Test Item Value Reference Range Interpretation Comments Lymphocytes (test code = Lymphocytes) 31.3 20.0-40.0 N [facility] [place]ZvbfqgcVURAINOMPT9340-66-85 22:42:00 Test Item Value Reference Range Interpretation Comments Segs (test code = Segs) 62.0 45.0-75.0 N [facility] [place]HophqcuXEPIQCFCKI0781-62-72 22:42:00 Test Item Value Reference Range Interpretation Comments MPV (test code = MPV) 9.0 7.4-10.4 N [facility] [place]KotdcgpFMUYWODXLV3619-55-71 22:42:00 Test Item Value Reference Range Interpretation Comments MCH (test code = MCH) 30.3 pg 27.0-31.0 N [facility] [place]CwufvccEYJVVJTNNC5432-90-15 22:42:00 Test Item Value Reference Range Interpretation Comments MCHC (test code = MCHC) 33.5 32.0-36.0 N [facility] [place]RvsgecuEKSHNADCXZ5042-34-16 22:42:00 Test Item Value Reference Range Interpretation Comments Platelet (test code = Platelet) 204 133-450 N [facility] [place]ZhsbizpWQCWCXOGKW8945-80-63 22:42:00 Test Item Value Reference Range Interpretation Comments RDW (test code = RDW) 12.0 11.5-14.5 N [facility] [place]RtokffnXNWXCNUHUD3333-97-53 22:42:00 Test Item Value Reference Range Interpretation Comments RBC (test code = RBC) 4.38 4.70-6.10 L [facility] [place]NfyjvphINOJGAQAVU5838-56-84 22:42:00 Test Item Value Reference Range Interpretation Comments WBC (test code = WBC) 8.0 3.7-10.4 N [facility] [place]KynbfqtPSVQJVXSAL0352-36-86 22:42:00 Test Item Value Reference Range Interpretation Comments MCV (test code = MCV) 90.5 80.0-94.0 N [facility] [place]QkdeavqQPKWTODOCZ9829-67-03 22:42:00 Test Item Value Reference Range Interpretation Comments Hgb (test code = Hgb) 13.3 14.0-18.0 L [facility] [place]IeyofrjUOWDOYOOJM0704-41-17 22:42:00 Test Item Value Reference Range Interpretation Comments Hct (test code = Hct) 39.7 42.0-54.0 L [facility] CenterZclvsmxZZNKCSXMS0585-15-24 22:42:00 Test Item Value Reference Range Interpretation Comments BUN (test code = BUN) 13 7-22 N [facility] CenterVmwvlirRHFMMPTYH5761-54-70 22:42:00 Test Item Value Reference Range Interpretation Comments Glucose Lvl (test code = Glucose Lvl) 83 70-99 N [facility] CenterJhgvznpKLLWIVWLY4841-48-29 22:42:00 Test Item Value Reference Range Interpretation Comments Calcium Lvl (test code = Calcium Lvl) 9.3 8.5-10.5 N [facility] CenterMhzgpikEPDPRORAI5898-84-08 22:42:00 Test Item Value Reference Range Interpretation Comments CO2 (test code = CO2) 31 24-32 N [facility] CenterQsnrzbhICYEAVEJE7817-97-43 22:42:00 Test Item Value Reference Range Interpretation Comments AGAP (test code = AGAP) 11.0 10.0-20.0 N [facility] CenterXyotsosVJLZLTOMX9694-27-22 22:42:00 Test Item Value Reference Range Interpretation Comments eGFR (test code = eGFR) 131 [facility] CenterTxjwbgoMZCHLVWFL6845-53-99 22:42:00 Test Item Value Reference Range Interpretation Comments Sodium Lvl (test code = Sodium Lvl) 140 135-145 N [facility] CenterIqgpgusWVUBSKFOS9403-82-51 22:42:00 Test Item Value Reference Range Interpretation Comments Creatinine Lvl (test code = Creatinine 0.7 0.5-1.4 N Lvl) [facility] CenterKbrxqhoEMYGJCCSZ3696-12-93 22:42:00 Test Item Value Reference Range Interpretation Comments Potassium Lvl (test code = Potassium 5.0 3.5-5.1 N Lvl) [facility] CenterQyauylrVAFDKGUIV0064-12-43 22:42:00 Test Item Value Reference Range Interpretation Comments Chloride Lvl (test code = Chloride Lvl) 103 95-109 N [facility] CenterKjtdnglEMZTSYOKH6794-62-35 22:42:00 Test Item Value Reference Range Interpretation Comments BUN (test code = BUN) 13 7-22 N [facility] CenterLifhnhuQEAOLBXDM3508-42-70 22:42:00 Test Item Value Reference Range Interpretation Comments Glucose Lvl (test code = Glucose Lvl) 83 70-99 N [facility] CenterYvykzhcIKFUHJPQW3606-88-56 22:42:00 Test Item Value Reference Range Interpretation Comments Calcium Lvl (test code = Calcium Lvl) 9.3 8.5-10.5 N [facility] CenterRlkgaaxYIWORQZHA4148-75-65 22:42:00 Test Item Value Reference Range Interpretation Comments CO2 (test code = CO2) 31 24-32 N [facility] CenterJvzkcphBZFOLJJWQ3919-71-45 22:42:00 Test Item Value Reference Range Interpretation Comments AGAP (test code = AGAP) 11.0 10.0-20.0 N [facility] CenterPzjqkodBSJZIWYBE6472-60-96 22:42:00 Test Item Value Reference Range Interpretation Comments eGFR (test code = eGFR) 131 [facility] CenterFlysoiyUVHIJYKDW3673-54-39 22:42:00 Test Item Value Reference Range Interpretation Comments Sodium Lvl (test code = Sodium Lvl) 140 135-145 N [facility] CenterFbikvfbHVUSIIEZR6909-15-22 22:42:00 Test Item Value Reference Range Interpretation Comments Creatinine Lvl (test code = Creatinine 0.7 0.5-1.4 N Lvl) [facility] CenterCzwynktEWXAYTEIY3103-00-63 22:42:00 Test Item Value Reference Range Interpretation Comments Potassium Lvl (test code = Potassium 5.0 3.5-5.1 N Lvl) [facility] CenterIsseczeTIBFVLQSU3575-67-69 22:42:00 Test Item Value Reference Range Interpretation Comments Chloride Lvl (test code = Chloride Lvl) 103 95-109 N [facility] CenterXiahkboJELPJOLMZ2628-27-35 22:42:00 Test Item Value Reference Range Interpretation Comments Phosphorus (test code = Phosphorus) 4.7 2.5-4.5 H [facility] CenterRlwjnicGHMYSCGJO2726-69-81 22:42:00 Test Item Value Reference Range Interpretation Comments Magnesium Lvl (test code = Magnesium 1.8 1.8-2.4 N Lvl) [facility]VgwosffGMZHAQGWYH6482-07-11 22:42:00 Test Item Value Reference Range Interpretation Comments Basophils # (test code 0.1 See_Comment N [Aut omated message] The = Basophils #) system which generated this result tra nsmitted reference range : <=0.2. The reference r terri was not used to int erpret this result as normal/abnormal . [facility] [place]TqatelsMLHFQDNKJB4332-72-49 22:42:00 Test Item Value Reference Range Interpretation Comments Lymphocytes # (test code = Lymphocytes 2.5 1.0-5.5 N #) [facility] [place]CbvycloMHZLJOHIUT1489-75-53 22:42:00 Test Item Value Reference Range Interpretation Comments Basophils (test code = 0.7 See_Comment N [Aut omated message] The Basophils) system which ge nerated this result tra nsmitted reference range : <=1.0. The reference r terri was not used to int erpret this result as normal/abnormal . [facility] [place]RyqwjtvYRAZKHQSFB1688-62-17 22:42:00 Test Item Value Reference Range Interpretation Comments Monocytes # (test code 0.4 See_Comment N [Aut omated message] The = Monocytes #) system which generated this result tra nsmitted reference range : <=0.8. The reference r terri was not used to int erpret this result as normal/abnormal . [facility] [place]HpbjthnFRNHATRIFC5999-16-31 22:42:00 Test Item Value Reference Range Interpretation Comments Segs-Bands # (test code = Segs-Bands #) 4.9 1.5-8.1 N [facility] [place]ZgzvdllWMTAZEQISZ6840-75-77 22:42:00 Test Item Value Reference Range Interpretation Comments Eosinophils (test code = 1.0 See_Comment N [A utomated message] The Eosinophils) system which ge nerated this result tra nsmitted reference range : <=4.0. The reference r terri was not used to int erpret this result as normal/abnormal . [facility] [place]NrepxngAVJGFYCMKA5585-25-15 22:42:00 Test Item Value Reference Range Interpretation Comments Eosinophils # (test code 0.1 See_Comment N [A utomated message] The = Eosinophils #) system whic h generated this result tra nsmitted reference range : <=0.5. The reference r terri was not used to int erpret this result as normal/abnormal . [facility] [place]HfvlsnvTOSQIRJJZX2087-93-21 22:42:00 Test Item Value Reference Range Interpretation Comments Monocytes (test code = Monocytes) 5.0 2.0-12.0 N [facility] [place]SopzqhnAGLFYTIWJP3038-73-62 22:42:00 Test Item Value Reference Range Interpretation Comments Lymphocytes (test code = Lymphocytes) 31.3 20.0-40.0 N [facility] [place]XfnqlbrOMHEDXXQPF5449-26-40 22:42:00 Test Item Value Reference Range Interpretation Comments Segs (test code = Segs) 62.0 45.0-75.0 N [facility] [place]PogdgusJOMLJOPCGO1456-62-04 22:42:00 Test Item Value Reference Range Interpretation Comments MPV (test code = MPV) 9.0 7.4-10.4 N [facility] [place]JohenpzYGHQBCKYIG1727-97-02 22:42:00 Test Item Value Reference Range Interpretation Comments MCH (test code = MCH) 30.3 pg 27.0-31.0 N [facility] [place]ervilleUlbbimiKQPWHLIQCT0789-85-39 22:42:00 Test Item Value Reference Range Interpretation Comments MCHC (test code = MCHC) 33.5 32.0-36.0 N [facility] [place]ervilleElohkciMTHBQRLNEL3930-68-07 22:42:00 Test Item Value Reference Range Interpretation Comments Platelet (test code = Platelet) 204 133-450 N [facility] [place]ervilleZbjxswdFEIYPFULKD0572-33-85 22:42:00 Test Item Value Reference Range Interpretation Comments RDW (test code = RDW) 12.0 11.5-14.5 N [facility] [place]CnltkzrECPZBRIPXP7775-03-17 22:42:00 Test Item Value Reference Range Interpretation Comments RBC (test code = RBC) 4.38 4.70-6.10 L [facility] [place]ervilleNmleibkCYFOWVGRCO2176-18-96 22:42:00 Test Item Value Reference Range Interpretation Comments WBC (test code = WBC) 8.0 3.7-10.4 N [facility] [place]ervilleTyukvpmTZPSXFVXCH7412-67-01 22:42:00 Test Item Value Reference Range Interpretation Comments MCV (test code = MCV) 90.5 80.0-94.0 N [facility] [place]ervilleFfgkopcXGIHWHFFLL9434-51-31 22:42:00 Test Item Value Reference Range Interpretation Comments Hgb (test code = Hgb) 13.3 14.0-18.0 L [facility] [place]ervilleWwtecvrDEJIJJFZDU8678-61-04 22:42:00 Test Item Value Reference Range Interpretation Comments Hct (test code = Hct) 39.7 42.0-54.0 L [facility] CenterZqydhybMKRUBNJMG5270-18-17 22:42:00 Test Item Value Reference Range Interpretation Comments BUN (test code = BUN) 13 7-22 N [facility] CenterAllbrftPAPBZOUFY9937-82-55 22:42:00 Test Item Value Reference Range Interpretation Comments Phosphorus (test code = Phosphorus) 4.7 2.5-4.5 H [facility] CenterUuzkdilSETYBORJE2912-54-29 22:42:00 Test Item Value Reference Range Interpretation Comments Magnesium Lvl (test code = Magnesium 1.8 1.8-2.4 N Lvl) [facility] [place]PdglfhpVWMRHYKWAL1404-38-02 22:42:00 Test Item Value Reference Range Interpretation Comments Basophils # (test code 0.1 See_Comment N [Aut omated message] The = Basophils #) system which generated this result tra nsmitted reference range : <=0.2. The reference r terri was not used to int erpret this result as normal/abnormal . [facility] [place]PvgtgzePZSHWNVOYY8338-26-83 22:42:00 Test Item Value Reference Range Interpretation Comments Lymphocytes # (test code = Lymphocytes 2.5 1.0-5.5 N #) [facility] [place]ervilleSwussgsIKDCLCOEJW9802-72-86 22:42:00 Test Item Value Reference Range Interpretation Comments Basophils (test code = 0.7 See_Comment N [Aut omated message] The Basophils) system which ge nerated this result tra nsmitted reference range : <=1.0. The reference r terri was not used to int erpret this result as normal/abnormal . [facility] [place]ervilleLmeshqcUCALAVKDTG9767-77-19 22:42:00 Test Item Value Reference Range Interpretation Comments Monocytes # (test code 0.4 See_Comment N [Aut omated message] The = Monocytes #) system which generated this result tra nsmitted reference range : <=0.8. The reference r terri was not used to int erpret this result as normal/abnormal . [facility] [place]ervilleDhpkksaCFDRMOZLLK8529-68-66 22:42:00 Test Item Value Reference Range Interpretation Comments Segs-Bands # (test code = Segs-Bands #) 4.9 1.5-8.1 N [facility] [place]ervilleLvjobugVMDNLKSXSA9997-31-73 22:42:00 Test Item Value Reference Range Interpretation Comments Eosinophils (test code = 1.0 See_Comment N [A utomated message] The Eosinophils) system which ge nerated this result tra nsmitted reference range : <=4.0. The reference r terri was not used to int erpret this result as normal/abnormal . [facility] [place]ervilleAldxqquWDQDJYUEFP6166-80-27 22:42:00 Test Item Value Reference Range Interpretation Comments Eosinophils # (test code 0.1 See_Comment N [A utomated message] The = Eosinophils #) system wh h generated this result tra nsmitted reference range : <=0.5. The reference r terri was not used to int erpret this result as normal/abnormal . [facility] [place]CnrsbfaZLLNOJYEJB2390-92-13 22:42:00 Test Item Value Reference Range Interpretation Comments Monocytes (test code = Monocytes) 5.0 2.0-12.0 N [facility] CenterMscrlbzTMAKXJNZO4464-52-50 22:42:00 Test Item Value Reference Range Interpretation Comments Glucose Lvl (test code = Glucose Lvl) 83 70-99 N [facility] [place]CtszbnqLXAMOBUBGH8110-93-67 22:42:00 Test Item Value Reference Range Interpretation Comments Lymphocytes (test code = Lymphocytes) 31.3 20.0-40.0 N [facility] [place]GsnsugeXIGYYWGBVP1655-91-60 22:42:00 Test Item Value Reference Range Interpretation Comments Segs (test code = Segs) 62.0 45.0-75.0 N [facility] [place]KfyhrqpJTMUKKFVPS8423-08-22 22:42:00 Test Item Value Reference Range Interpretation Comments MPV (test code = MPV) 9.0 7.4-10.4 N [facility] [place]ervilleItuavbfETEBKNTTJU2134-51-55 22:42:00 Test Item Value Reference Range Interpretation Comments MCH (test code = MCH) 30.3 pg 27.0-31.0 N [facility] [place]ervilleOxtenniEOFRKWUOIX2736-46-75 22:42:00 Test Item Value Reference Range Interpretation Comments MCHC (test code = MCHC) 33.5 32.0-36.0 N [facility] [place]ervilleRpfevcyFUCGLKLKRJ4606-97-27 22:42:00 Test Item Value Reference Range Interpretation Comments Platelet (test code = Platelet) 204 133-450 N [facility] [place]ervilleWqrvpgkJHWWXDQRUH0819-87-39 22:42:00 Test Item Value Reference Range Interpretation Comments RDW (test code = RDW) 12.0 11.5-14.5 N [facility] [place]ervilleRjaauddRRFDACAACK1784-19-74 22:42:00 Test Item Value Reference Range Interpretation Comments RBC (test code = RBC) 4.38 4.70-6.10 L [facility] [place]ervilleOeoepeyBLKLFGYHOQ3815-03-39 22:42:00 Test Item Value Reference Range Interpretation Comments WBC (test code = WBC) 8.0 3.7-10.4 N [facility] [place]NfzwopjPJTOIPDSGB2585-06-55 22:42:00 Test Item Value Reference Range Interpretation Comments MCV (test code = MCV) 90.5 80.0-94.0 N [facility] CenterFxevgeuLPKKUWGOX6883-12-48 22:42:00 Test Item Value Reference Range Interpretation Comments Calcium Lvl (test code = Calcium Lvl) 9.3 8.5-10.5 N [facility] [place]ervilleBxxllosOQSRSUYMFL5368-18-39 22:42:00 Test Item Value Reference Range Interpretation Comments Hgb (test code = Hgb) 13.3 14.0-18.0 L [facility] [place]ervilleRpuhrwhAGZJDNGBIE7711-74-31 22:42:00 Test Item Value Reference Range Interpretation Comments Hct (test code = Hct) 39.7 42.0-54.0 L [facility] CenterVmpxfvkQEKJTUJUS7178-10-97 22:42:00 Test Item Value Reference Range Interpretation Comments BUN (test code = BUN) 13 7-22 N [facility] CenterQpuuujdAECKLWDKY9217-43-36 22:42:00 Test Item Value Reference Range Interpretation Comments CO2 (test code = CO2) 31 24-32 N [facility] CenterOshbpfkKVZDYZBKU2441-51-23 22:42:00 Test Item Value Reference Range Interpretation Comments Glucose Lvl (test code = Glucose Lvl) 83 70-99 N [facility] CenterQbxytjeRWGWOZFTF5591-44-18 22:42:00 Test Item Value Reference Range Interpretation Comments Calcium Lvl (test code = Calcium Lvl) 9.3 8.5-10.5 N [facility] CenterOltmdowHZCUSTMLY7813-88-74 22:42:00 Test Item Value Reference Range Interpretation Comments CO2 (test code = CO2) 31 24-32 N [facility] CenterHcnppeeCYPWHBOHA7934-79-79 22:42:00 Test Item Value Reference Range Interpretation Comments AGAP (test code = AGAP) 11.0 10.0-20.0 N [facility] CenterVndupczXDTMJEMKV5603-21-46 22:42:00 Test Item Value Reference Range Interpretation Comments eGFR (test code = eGFR) 131 [facility] CenterFjviampVTDIWPVVN1428-21-53 22:42:00 Test Item Value Reference Range Interpretation Comments Sodium Lvl (test code = Sodium Lvl) 140 135-145 N [facility] CenterBakosraMFMXZNKMK4449-12-64 22:42:00 Test Item Value Reference Range Interpretation Comments Creatinine Lvl (test code = Creatinine 0.7 0.5-1.4 N Lvl) [facility] CenterVdrvlqxPQWJHMRRY6915-98-81 22:42:00 Test Item Value Reference Range Interpretation Comments Potassium Lvl (test code = Potassium 5.0 3.5-5.1 N Lvl) [facility] CenterAyndnvhOCUTASIAD9601-45-76 22:42:00 Test Item Value Reference Range Interpretation Comments Chloride Lvl (test code = Chloride Lvl) 103 95-109 N [facility] CenterSizosigADYZMWTZI6829-56-30 22:42:00 Test Item Value Reference Range Interpretation Comments Phosphorus (test code = Phosphorus) 4.7 2.5-4.5 H [facility] CenterXgavcuqXDFONSEMA3630-17-52 22:42:00 Test Item Value Reference Range Interpretation Comments AGAP (test code = AGAP) 11.0 10.0-20.0 N [facility] CenterLpruramVQCLZZPBC5126-15-66 22:42:00 Test Item Value Reference Range Interpretation Comments Magnesium Lvl (test code = Magnesium 1.8 1.8-2.4 N Lvl) [facility] [place]XrcgtpvLJNDWKBJET4707-25-20 22:42:00 Test Item Value Reference Range Interpretation Comments Basophils # (test code 0.1 See_Comment N [Aut omated message] The = Basophils #) system which generated this result tra nsmitted reference range : <=0.2. The reference r terri was not used to int erpret this result as normal/abnormal . [facility] [place]ervilleCgyjitzCZSELEEGAO9204-48-31 22:42:00 Test Item Value Reference Range Interpretation Comments Lymphocytes # (test code = Lymphocytes 2.5 1.0-5.5 N #) [facility] [place]ervilleMcaxwfvFXNCETFQPX8945-48-86 22:42:00 Test Item Value Reference Range Interpretation Comments Basophils (test code = 0.7 See_Comment N [Aut omated message] The Basophils) system which ge nerated this result tra nsmitted reference range : <=1.0. The reference r terri was not used to int erpret this result as normal/abnormal . [facility] [place]ervilleGnzituoYIAVPPLHOI1895-81-46 22:42:00 Test Item Value Reference Range Interpretation Comments Monocytes # (test code 0.4 See_Comment N [Aut omated message] The = Monocytes #) system which generated this result tra nsmitted reference range : <=0.8. The reference r terri was not used to int erpret this result as normal/abnormal . [facility] [place]ervilleZxdbdjvQNKJQUNVPS8093-45-17 22:42:00 Test Item Value Reference Range Interpretation Comments Segs-Bands # (test code = Segs-Bands #) 4.9 1.5-8.1 N [facility] [place]JxjowdcGGFZVNWQMR4146-50-82 22:42:00 Test Item Value Reference Range Interpretation Comments Eosinophils (test code = 1.0 See_Comment N [A utomated message] The Eosinophils) system which ge nerated this result tra nsmitted reference range : <=4.0. The reference r terri was not used to int erpret this result as normal/abnormal . [facility] [place]ervilleUtfnyrwXHZAWJGPZY6151-30-61 22:42:00 Test Item Value Reference Range Interpretation Comments Eosinophils # (test code 0.1 See_Comment N [A utomated message] The = Eosinophils #) system whic h generated this result tra nsmitted reference range : <=0.5. The reference r terri was not used to int erpret this result as normal/abnormal . [facility] [place]JtaqogrGUKXSOWXDR2506-15-74 22:42:00 Test Item Value Reference Range Interpretation Comments Monocytes (test code = Monocytes) 5.0 2.0-12.0 N [facility] [place]WezuvfpBWNKFGGRWW7739-06-66 22:42:00 Test Item Value Reference Range Interpretation Comments Lymphocytes (test code = Lymphocytes) 31.3 20.0-40.0 N [facility] CenterDbmfcvlOUAGWLUJX5305-17-82 22:42:00 Test Item Value Reference Range Interpretation Comments eGFR (test code = eGFR) 131 [facility]ervilleHqpqtvhTNPDCXDCGR4400-92-87 22:42:00 Test Item Value Reference Range Interpretation Comments Segs (test code = Segs) 62.0 45.0-75.0 N [facility] GLUCOSE LUQNUVF2804-71-18 21:59:00 Test Item Value Reference Range Interpretation Comments Gluc POC [place] (test code = Gluc POC 86 70-99 N [place]) [facility] GLUCOSE [id number] 21:59:00 Test Item Value Reference Range Interpretation Comments Gluc POC [place] (test code = Gluc POC 86 70-99 N [place]) [facility] GLUCOSE [id number] 21:59:00 Test Item Value Reference Range Interpretation Comments Gluc POC [place] (test code = Gluc POC 86 70-99 N [place]) [facility] GLUCOSE [id number] 21:59:00 Test Item Value Reference Range Interpretation Comments Gluc POC [place] (test code = Gluc POC 86 70-99 N [place]) [facility] GLUCOSE [id number] 21:59:00 Test Item Value Reference Range Interpretation Comments Gluc POC [place] (test code = Gluc POC 86 70-99 N [place]) [facility] GLUCOSE [id number] 21:59:00 Test Item Value Reference Range Interpretation Comments Gluc POC [place] (test code = Gluc POC 86 70-99 N [place]n) [facility]
--- NOTE | 2022-12-16 16:01 | RAD REPORT ---
EXAM DESCRIPTION: RAD - Chest Pa And Lat (2 Views) - 12/16/2022 3:55 pm CLINICAL HISTORY: COUGH Chest pain. COMPARISON: Chest Single View dated 12/05/2022; Chest Single View dated 11/06/2022; Chest Single View da genevieve 08/04/2022; Chest Single View dated 11/23/2021 FINDINGS: Reticular opacities are present in both lung bases which may be chronic or related to a mi ld infection. The lungs are otherwise clear. The heart is normal in size. No displaced fractures.
[2022-12-16 16:29] LABS: SARS-COV-2 RT PCR NEGATIVE (NEGATIVE)
[2022-12-16 16:56] LABS: Absolute Lymphocytes (CBC) 1.1 K/uL (0.7-4.9); Hematocrit 42.4 % (39.6-49.0); MCV 83.2 fL (80-100); MPV 7.9 fL (7.6-11.3)
[2022-12-16 17:15] LABS: Magnesium 2.1 mg/dL (1.6-2.4); Potassium 3.3 mmol/L (3.5-5.1); Troponin High Sensitivity 14.8 pg/mL (<58.9)
[2022-12-16] MEDS ORDERED: ACETAMINOPHEN 325 MG TABLET ONE (17:19)
[2022-12-16] MEDS ORDERED: IBUPROFEN 400 MG TAB ONE (17:19)
[2022-12-16] MEDS ORDERED: NA CHLORIDE 0.9% 1,000 ML ONE (17:31)
--- NOTE | 2022-12-16 18:09 | RAD REPORT ---
EXAM DESCRIPTION: CT - Chest For Pe Angio - 12/16/2022 6:00 pm CLINICAL HISTORY: Chest pain. Chest pain;Cough COMPARISON: Chest For Pe Angio dated 09/03/2020 TECHNIQUE: CT angiogram of the pulmonary arteries was performed with MIP. All CT scans are performed using dose optimization technique as appropriate and may include automated exposure control or mA/KV adjustment according to patient size. FINDINGS: No evidence of pulmonary thromboembolism. No acute aortic finding demonstrated. Mild alveolar opacities are present throughout both lungs. No significant pericardial or pleural fluid. No concerning bony finding. IMPRESSION: No evidence of pulmonary thromboembolism. Mild nonspecific alveolar opacities in both lungs could indicate alveolitis.
--- NOTE | 2022-12-16 18:11 | RAD REPORT ---
EXAM DESCRIPTION: CTAbdomen Pelvis W Contrast - 12/16/2022 6:00 pm CLINICAL HISTORY: Abdominal pain. flank pain from fall COMPARISON: Abdomen Pelvis W Contrast dated 07/11/2021 TECHNIQUE: Biphasic CT imaging of the abdomen and pelvis was performed with 100 ml non-ionic IV cont rast. All CT scans are performed using dose optimization technique as appropriate and may include automated exposure control or mA/KV adjustment according to patient size. FINDINGS: The lung bases are clear.Cholecystectomy clips. The liver, spleen, pancreas, adrenal glands and kidneys are within normal limits. No bowel obstruction, free air, free fluid or abscess. The appendix is normal. No evidence of signi ficant lymphadenopathy. No suspicious bony findings. IMPRESSION: No acute intra-abdominal or pelvic finding.
[2022-12-16] MEDS ORDERED: CEFTRIAXONE 1000 MG/VIAL ONE (18:33)
[2022-12-16] MEDS ORDERED: AZITHROMYCIN 250 MG TAB ONE (18:33)
[2022-12-16] MEDS ORDERED: POTASSIUM 25 MEQ EFFERV TAB ONE (18:34)
--- NOTE | 2022-12-16 18:49 | ER ---
Nurse's Notes [facility] Name: Shan Faye Age: 37 yrs Sex: Male : 1985 Arrival Date: 12/16/2022 Time: 15:09 Bed 17 Private MD: Diagnosis: Acute interstitial pneumonitis Presentation: 12/16 15:34 Chief complaint: Patient states: "He has a cough and he fell while getting out of the [facility] bathtub. He was at work and was having bad anxiety". Coronavirus screen: cough unrelated to allergies. Ebola Screen: No symptoms or risks identified at this time. Initial Sepsis Screen: Does the patient meet any 2 criteria? No. Patient's initial sepsis screen is negative. Does the patient have a suspected source of infection? No. Patient's initial sepsis screen is negative. Risk Assessment: Do you want to hurt yourself or someone else? Patient reports no desire to harm self or others. Onset of symptoms was December 16, 2022. 15:34 Method Of Arrival: Wheelchair [facility] 15:34 Acuity: PAULINE 3 mb9 Triage Assessment: 15:37 General: Appears in no apparent distress. Behavior is calm, cooperative. Pain: mb9 Complains of pain in bilateral ribs. Pain: Quality of pain is described as throbbing, Pain began suddenly. Neuro: Level of Consciousness is awake, alert, obeys commands, Oriented to person, place, time, situation, Appropriate for age. Respiratory: Airway is patent Respiratory effort is even, unlabored, Respiratory pattern is regular, symmetrical. Derm: Skin is pink, warm \\T\\ dry. Musculoskeletal: Range of motion: intact in all extremities, Reports pain in ribs. Historical: - Allergies: 15:37 No Known Allergies; mb9 - Home Meds: 15:37 Keppra 750 mg Oral tab 2 tabs 2 times per day [Active]; mb9 - PMHx: 15:37 brain disorder; CVA; Seizure; mb9 - PSHx: 15:37 Cholecystectomy; mb9 - Immunization history:: Adult Immunizations up to date. - Social history:: Smoking status: Patient denies any tobacco usage or history of. Screenin:33 [facility] ED Fall Risk Assessment (Adult) History of falling in the last 3 months, kc6 including since admission Yes- single mechanical fall (1 pt) Confusion or Disorientation No (0 pts) Intoxicated or Sedated No (0 pts) Impaired Gait No (0 pts) Mobility Assist Device Used No (0 pt) Altered Elimination No (0 pt) Score/Fall Risk Level 0 - 2 = Low Risk Oriented to surroundings, Maintained a safe environment, Educated pt \\T\\ family on fall prevention, incl call for assistance when getting out of bed, Assessed \\T\\ reinforced patient's understanding of fall precautions, Hourly rounding (assess needs \\T\\ fall precautionary measures) done. Abuse screen: Denies threats or abuse. Denies injuries from another. Nutritional screening: No deficits noted. Tuberculosis screening: No symptoms or risk factors identified. Assessment: 17:32 General: Appears in no apparent distress. comfortable, ill, Behavior is calm, kc6 cooperative, appropriate for age. Pain: Denies pain. Neuro: [place] Agitation-Sedation Scale (RASS): 0 - Alert and Calm Level of Consciousness is awake, alert, obeys commands, Oriented to person, place, time, situation, Appropriate for age. Cardiovascular: Capillary refill < 3 seconds. Respiratory: Airway is patent Trachea midline Respiratory effort is even, unlabored, Respiratory pattern is regular, symmetrical. GI: Reports diarrhea, Patient currently denies nausea, pain, vomiting. : No signs and/or symptoms were reported regarding the genitourinary system. EENT: No signs and/or symptoms were reported regarding the EENT system. Derm: No signs and/or symptoms reported regarding the dermatologic system. Skin is intact, Skin is pink, warm \\T\\ dry. Musculoskeletal: No signs and/or symptoms reported regarding the musculoskeletal system. Circulation, motion, and sensation intact. Capillary refill < 3 seconds, Range of motion: intact in all extremities. 18:32 Reassessment: Patient appears in no apparent distress at this time. No changes from kc6 previously documented assessment. Patient and/or family updated on plan of care and expected duration. Pain level reassessed. Patient is alert, oriented x 3, equal unlabored respirations, skin warm/dry/pink. Vital Signs: 15:34 BP 131 / 97; Pulse 111; Resp 18; Temp 97.8; Pulse Ox 97% on R/A; Weight 90.72 kg; mb9 Height 5 ft. 5 in. ; Pain 10/10; 17:33 BP 143 / 102; Pulse 99; Resp 21 S; Pulse Ox 95% on R/A; kc6 18:42 BP 141 / 96; Pulse 92; Resp 20 S; Pulse Ox 96% on R/A; kc6 15:34 Body Mass Index 33.28 (90.72 kg, 165.1 cm) mb9 15:34 Pain Scale: Adult mb9 ED Course: 15:09 Patient arrived in ED. mr 15:20 Isaiah Hannah PA is PHCP. cp 15:20 Matthew Guthrie MD is Attending Physician. cp 15:36 Triage completed. mb9 15:36 Arm band placed on. mb9 15:42 COVID-19/FLU A+B Sent. mb9 15:57 XRAY Chest Pa And Lat (2 Views) In Process Unspecified. EDMS 17:05 Blood Culture Adult (2) Sent. rs5 17:05 Lactate w/ 2H reflex if indic. Sent. rs5 17:05 Basic Metabolic Panel Sent. rs5 17:05 Magnesium Sent. rs5 17:05 NT PRO-BNP Sent. rs5 17:05 Troponin HS Sent. rs5 17:05 Inserted saline lock: 20 gauge in left antecubital area, using aseptic technique. Blood rs5 collected. 17:06 Inserted saline lock: 20 gauge in right antecubital area, using aseptic technique. rs5 Blood collected. 17:06 IV discontinued, intact, bleeding controlled, No redness/swelling at site. Pressure rs5 dressing applied. 17:12 Koki Quintana, RN is Primary Nurse. kc6 17:32 Patient has correct armband on for positive identification. Placed in gown. Bed in low kc6 position. Call light in reach. Side rails up X2. Adult w/ patient. 18:02 CT Chest For PE Angio In Process Unspecified. EDMS 18:02 CT Abd/Pelvis - IV Contrast Only: bilateral rib pain from fall In Process Unspecified. EDMS Administered Medications: 17:21 Drug: Acetaminophen PO 650 mg Route: PO; kc6 17:21 Drug: Ibuprofen PO 800 mg Route: PO; kc6 17:32 Drug: NS 0.9% IV 1000 ml Route: IV; Rate: 1000 ml/hr; Site: left antecubital; kc6 18:35 Drug: Rocephin IV 1 grams Route: IV; Rate: calculated rate; Site: left antecubital; kc6 18:35 Drug: Potassium PO Effervescent Tablet 50 mEq Route: PO; kc6 18:35 Drug: AZITHromycin PO 500 mg Route: PO; kc6 Outcome: 18:48 Discharge ordered by MD. mas Signatures: Dispatcher [employer] JOHN Zoltan Corinna Isaiah Merino PA PA cp Campbell, Kaitlyn, RN RN kc6 Corinna Anne RN RN mb9 Jeanmarie Gant 5
--- NOTE | 2022-12-16 18:49 | EDPHYS ---
Physician Documentation [facility] Name: Shan Faye Age: 37 yrs Sex: Male : 1985 Arrival Date: 12/16/2022 Time: 15:09 Bed 17 Private MD: ED Physician Matthew Guthrie HPI: 12/16 15:45 This 37 yrs old Male presents to ER via Wheelchair with complaints of Fall cp Injury, Anxiety. Historical: - Allergies: 15:37 No Known Allergies; mb9 - Home Meds: 15:37 Keppra 750 mg Oral tab 2 tabs 2 times per day [Active]; mb9 - PMHx: 15:37 brain disorder; CVA; Seizure; mb9 - PSHx: 15:37 Cholecystectomy; mb9 - Immunization history:: Adult Immunizations up to date. - Social history:: Smoking status: Patient denies any tobacco usage or history of. Exam: 16:57 ECG was reviewed by the Attending Physician. cp Vital Signs: 15:34 BP 131 / 97; Pulse 111; Resp 18; Temp 97.8; Pulse Ox 97% on R/A; Weight 90.72 kg; mb9 Height 5 ft. 5 in. ; Pain 10/10; 17:33 BP 143 / 102; Pulse 99; Resp 21 S; Pulse Ox 95% on R/A; kc6 18:42 BP 141 / 96; Pulse 92; Resp 20 S; Pulse Ox 96% on R/A; kc6 15:34 Body Mass Index 33.28 (90.72 kg, 165.1 cm) mb9 15:34 Pain Scale: Adult mb9 MDM: 15:46 Patient medically screened. cp 12/16 16:06 Order name: EKG; Complete Time: 16:06 cp 12/16 16:06 Order name: EKG - Nurse/Tech; Complete Time: 17:05 cp 12/16 16:06 Order name: IV Saline Lock; Complete Time: 17:05 cp 12/16 16:06 Order name: Labs collected and sent; Complete Time: 17:05 cp 12/16 16:06 Order name: O2 Per Protocol; Complete Time: 17:05 cp 12/16 16:06 Order name: Blood Culture Adult (2) cp 12/16 15:40 Order name: XRAY Chest Pa And Lat (2 Views); Complete Time: 17:09 cp / 16:06 Order name: CBC with Diff; Complete Time: 17:09 cp 12/16 17:09 Interpretation: Normal except: DANETTE% 77.0. cp / 15:40 Order name: COVID-19/FLU A+B; Complete Time: 17:09 cp / 17:09 Interpretation: Reviewed. 12/16 16:06 Order name: Cardiac monitoring; Complete Time: 17:13 cp 12/16 16:06 Order name: O2 Sat Monitoring; Complete Time: 17:13 cp 12/16 16:06 Order name: Magnesium; Complete Time: 17:18 cp 12/16 16:06 Order name: NT PRO-BNP; Complete Time: 17:18 cp 12/16 16:06 Order name: Troponin HS; Complete Time: 17:18 cp 12/16 16:06 Order name: Basic Metabolic Panel; Complete Time: 17:18 cp 12/16 17:18 Interpretation: Normal except: K 3.3; GLUC 123. cp 12/16 16:06 Order name: Lactate w/ 2H reflex if indic.; Complete Time: 17:18 cp 12/16 17:18 Interpretation: Abnormal: LAC 1.3. cp 12/16 17:10 Order name: CT Chest For PE Angio; Complete Time: 18:15 cp 12/16 17:19 Order name: CT Abd/Pelvis - IV Contrast Only: bilateral rib pain from fall; Complete cp Time: 18:15 EC:57 Rate is 107 beats/min. Rhythm is regular. HI interval is normal. QRS interval is cp normal. QT interval is normal. T waves are Inverted in leads III, aVR. Interpreted by me. Reviewed by me. Administered Medications: 17:21 Drug: Acetaminophen PO 650 mg Route: PO; kc6 17:21 Drug: Ibuprofen PO 800 mg Route: PO; kc6 17:32 Drug: NS 0.9% IV 1000 ml Route: IV; Rate: 1000 ml/hr; Site: left antecubital; kc6 18:35 Drug: Rocephin IV 1 grams Route: IV; Rate: calculated rate; Site: left antecubital; kc6 18:35 Drug: Potassium PO Effervescent Tablet 50 mEq Route: PO; kc6 18:35 Drug: AZITHromycin PO 500 mg Route: PO; kc6 Disposition Summary: 12/16/22 18:48 Discharge Ordered Location: Home cp Problem: new cp Symptoms: have improved cp Condition: Stable cp Diagnosis - Acute interstitial pneumonitis cp Followup: cp - With: Private Physician - When: 2 - 3 days - Reason: Recheck today's complaints Forms: - Medication Reconciliation Form cp - Thank You Letter cp - Antibiotic Education cp - Prescription Opioid Use cp Signatures: Dispatcher [employer] EDMS Isaiah Hannah PA PA cp Campbell, Kaitlyn RN RN kc6 Corinna Anne RN RN mb9
[2022-12-16] MEDS ORDERED: HYDROCODONE/CHLORPHEN 5 ML/OSYR ONE (19:05)
--- NOTE | 2022-12-17 12:35 | EKG ---
Test Date: 2022-12-16 Test Time: 16:50:42 [employer] Feeder: MICHELE MEASUREMENT RESULTS: Intervals: Rate: 107 FL: 142 QRSD: 84 QT: 322 QTc: 429 [place]: P: 41 FL: 142 QRS: 24 T: 23 INTERPRETIVE STATEMENTS: Sinus tachycardia Otherwise normal ECG Compared to ECG 11/06/2022 12:44:17 Sinus rhythm no longer present Electronically Signed On 12-17-22 12:34:59 CDT by Medhat Fernandes
== END 2022-12-16 19:10 | disposition home or self-care (01) ==
LOC: ER 15:06
DX: J84.114 Acute interstitial pneumonitis (principal); Z20.822 Contact with and (suspected) exposure to COVID-19
CPT/HCPCS: 87040 ×2; 85025; 80048; 36415; 83735; 83605; 84484; 83880; 0240U; 71275; 74177; 71046; Q9967; J7030; 93005

== ENCOUNTER 2023-03-20 12:24 | Emergency (ER) | payer OTHER ==
--- OUTSIDE RECORDS SUMMARY | 2023-03-20 12:30 | XMS REPORT | Continuity of Care Document ---
:1985 Author Organization [facility] t Address [address] [place] [address]. [address] [place] [address] Care Team Providers Name Role Phone Jethro Allen Attending Clinician Unavailable Payers Payer Name Policy Type Policy Number Effective Date Expiration Date Elver yanes [place] [id number] 2015 Common [employer] 00:00:00 Spirit - [facility] Problems Condition Condition Condition Status Onset Resolution Last Treating Co mments Source Name Details Category Date Date Treatment Clinician Date SEIZURES SEIZURES Diagnosis Active 2011-102012-08-20 Memoria Active 10-20 17:32:00 l 08/20/2012 00:00: Jake denise [address] [id number] Type 2 Problem Active Common diabetes Spirit mellitus - [facility] with [facility] [id number] IRENE Problem Active Common (generaliz Spirit ed anxiety - CHI disorder) [facility] [id number] Current Problem Active Common moderate Spirit episode of - [facility] major 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 Social History Social Habit Start Date Stop Date Quantity Comments Source History of Tobacco Use Co mmon Spirit - [facility] Sex Assigned At Com mon Spirit - [facility] Smoking Status Start Date Stop Date Source Never Smoker Common [facility] Medications Ordered Filled Start Stop Current Ordering Indication Dosage Frequency Signature Comments Components Source Medication Medication Date Date Medication? Clinician (SIG) Name Name [facility]2011-10 Yes Tatyana 750 mg, 3 Mem [...] Chambers mL, Route: l Chloride 03:49: IVPB, [place] 0.9% IV 50 00 ONCE, mL Start date: 08/20/12 21:49:00, Stop date: 08/20/12 21:49:00 Depacon + 2011-10 No Terri A 500 mg, 5 Memoria Sodium 1-18 Chambers mL, Route: l Chloride 03:49: IVPB, [place] 0.9% IV 50 00 ONCE, mL Start date: 08/20/12 21:49:00, Stop date: 08/20/12 21:49:00 Depacon 2011-10 No Terri A 500 mg, 5 Memoria Sodium 1-18 Chambers mL, Route: l Chloride 03:49: IVPB, [place] 0.9% IV 50 00 ONCE, mL Start date: 08/20/12 21:49:00, Stop date: 08/20/12 21:49:00 Depacon 2011-10 No Terri A 500 mg, 5 Memoria Sodium 1-18 Chambers mL, Route: l Chloride 03:49: IVPB, [place] 0.9% IV 50 00 ONCE, mL Start date: 08/20/12 21:49:00, Stop date: 08/20/12 21:49:00 Depacon 2011-10 No Terri A 500 mg, 5 Memoria Sodium 1-18 Chambers mL, Route: l Chloride 03:49: IVPB, [place] 0.9% IV 50 00 ONCE, mL Start [...] Chambers mL, Route: l Chloride 03:49: IVPB, [place] 0.9% IV 50 00 ONCE, mL Start date: 08/20/12 21:49:00, Stop date: 08/20/12 21:49:00 Depacon + 2011-10 No Terri A 500 mg, 5 Memoria Sodium 1-18 Chambers mL, Route: l Chloride 03:49: IVPB, [place] 0.9% IV 50 00 ONCE, mL Start [...] Route: IV, l 03:17: Jose David ONCE, [place] Dosing Weight 72.727, kg, Start date: 08/20/12 21:17:00, Stop date: 08/20/12 21:17:00 Depakote 2011-10 No Tatyana 500 mg, Memor ia 118 Jessica Route: IV, l 03:17: Jose David ONCE, [place] Dosing Weight 72.727, kg, Start date: 08/20/12 21:17:00, Stop date: 08/20/12 21:17:00 Depakote 2011-10 No Tatyana 500 mg, Memor ia 118 Jessica Route: IV, l 03:17: Jose David ONCE, [place] Dosing Weight 72.727, kg, Start date: 08/20/12 21:17:00, Stop date: 08/20/12 21:17:00 Depakote 2011-10 No Tatyana 500 mg, Memor ia 1-18 Jessica Route: IV, l 03:17: Jose David ONCE, [place] Dosing Weight 72.727, kg, Start date: 08/20/12 21:17:00, Stop date: 08/20/12 21:17:00 Depakote 2011-10 No Tatyana 500 mg, Memor ia 1-18 Jessica Route: IV, l 03:17: Jose David ONCE, [place] 00 Dosing Weight 72.727, kg, Start date: 08/20/12 21:17:00, Stop date: 08/20/12 21:17:00 Depakote 2011-10 No Tatyana 500 mg, Memor ia 10-21 Jessica Route: IV, l 03:17: Jose David ONCE, [place] 00 Dosing Weight 72.727, kg, Start date: [...] tab, PO, l tablet, 22:02: BID, 30 [place] extended 13 tab, release Substituti on Allowed, ERTAB Depakote ER 2011-10 Yes 500 mg, 1 M emoria 500 mg oral 1-17 tab, PO, l tablet, 22:02: BID, 30 [place] extended 13 tab, release Substituti on Allowed, ERTAB Depakote ER 2011-10 Yes 500 mg, 1 M emoria 500 mg oral 1-17 tab, PO, l tablet, 22:02: BID, 30 [place] extended 13 tab, release Substituti on Allowed, [...] tab, PO, l tablet, 22:02: BID, 30 [place] extended 13 tab, release Substituti on Allowed, [...] BID Fycompa 10 Common MG MG MG [facility] BusPIRone BusPIRone No 1{table TID BusPIRone Common HCl 5 MG HCl 5 MG t} HCl 5 MG Spi rit [facility] Lantus 100 Lantus 100 No BID Lantus 100 Common UNIT/ML UNIT/ML UNIT/ML [facility] Citalopram Citalopram No 1{table QD Citalopram Common Hydrobromid Hydrobromid t} Hydrobromi Spirit e 20 MG e 20 MG de 20 MG - [facility] Latuda 20 Latuda 20 No 1{table QD Latuda 20 Common MG MG t} MG Spirit [facility] Keppra Keppra No Keppra Common [facility] Fycompa 10 Fycompa 10 No BID Fycompa 10 MG MG MG Lantus 100 Lantus 100 No BID Lantus 100 UNIT/ML UNIT/ML UNIT/ML Eliquis 5 Eliquis 5 No 1{table BID Eliquis 5 MG MG t} MG Vital Signs Vital Name Observation Time Observation Value Comments Source height 2020-10-15 10:20:00 65 [in_i] [facility] weight 2020-10-15 10:20:00 180 [lb_av] [facility] temperature 2020-10-15 10:20:00 98.7 [degF] [facility] bmi 2020-10-15 10:20:00 29.95 kg/m2 [facility] blood pressure 2020-10-15 10:20:00 131 mm[Hg] Common [facility] - systolic [facility] blood pressure 2020-10-15 10:20:00 74 mm[Hg] Common Spirit - diastolic [facility] Weight 2012-08-20 21:07:00 [facility] Height 2012-08-20 21:07:00 165.10 cm [facility] Procedures This patient has no known procedures. Encounters Start End Encounter Admission Attending Care Care Encounter Source Date/Time Date/Time Type Type Clinicians Facility Department ID 2023-03-02 Outpatient CBRIDGE CBRIDGE [id number] CareBri 09:57:18 [id number] [id number] 2022-12-04 Outpatient JASMIN Allen [facility] [id number] Common 11:14:01 Jethro [id number] [facility] 2022-07-02 Outpatient [facility] [id number] [place] 04:48:12 [id number] [facility] 2021-10-29 Outpatient Allen, STLMLC STLMLC [id number] Common 12:21:25 Jethro [id number] [facility] 2021-10-29 Outpatient Allen, STLMLC STLMLC [id number] Common 12:19:51 Jethro [id number] [facility] 2021-10-29 Outpatient Allen, STLMLC STLMLC [id number] Common 12:16:00 Jethro [id number] [facility] 2020-10-15 2020-10-15 OFFICE STLC STLC [id number] Co mmon 00:00:00 00:00:00 VISIT [facility] PT LEVEL 3 [facility] 2020-09-25 2020-09-25 (TEL) STLMLC STLMLC [id number] Co mmon 00:00:00 00:00:00 [facility] 2012-08-20 2012-08-20 Emergency nullFlavo [facility] [id number] Memoria 15:06:00 23:52:[address] 2012-08-20 2012-08-20 Emergency nullFlavo [facility] [id number] Memoria 15:06:00 23:52:[address] Results Test Description Test Time Test Comments Results Result Comments Source CHEMISTRY 2012-08-20 22:46:00 Test Item Value Reference Range Interpretation Comme nts Valproic Acid Lvl (test code = Valproic Acid Lvl) 128 50-1 00 H [facility]UipvtekUUBOWAXAF0397-76-55 22:46:00 Test Item Value Reference Range Interpretation Comments Valproic Acid Lvl (test code = Valproic 128 50-100 H Acid Lvl) [facility]CyllvkhNKOMKJAQL8144-97-38 22:46:00 Test Item Value Reference Range Interpretation Comments Valproic Acid Lvl (test code = Valproic 128 50-100 H Acid Lvl) [facility]JcxhirqIWSIMBWEP2993-72-92 22:46:00 Test Item Value Reference Range Interpretation Comments Valproic Acid Lvl (test code = Valproic 128 50-100 H Acid Lvl) [facility] CenterRrqmtsxWRKBITUPA8596-70-44 22:46:00 Test Item Value Reference Range Interpretation Comments Valproic Acid Lvl (test code = Valproic 128 50-100 H Acid Lvl) [facility] CenterMyiwdbuASHTGWYDX8801-49-37 22:46:00 Test Item Value Reference Range Interpretation Comments Valproic Acid Lvl (test code = Valproic 128 50-100 H Acid Lvl) [facility] CenterFioillhOFASKSJIA7746-28-83 22:46:00 Test Item Value Reference Range Interpretation Comments Valproic Acid Lvl (test code = Valproic 128 50-100 H Acid Lvl) [facility] CenterXznaygzWVYJRCMPV7555-03-00 22:46:00 Test Item Value Reference Range Interpretation Comments Valproic Acid Lvl (test code = Valproic 128 50-100 H Acid Lvl) [place] [address]-11-17 22:46:00 Test Item Value Reference Range Interpretation Comments Valproic Acid Lvl (test code = Valproic 128 50-100 H Acid Lvl) [facility]uapxtABURUXPRKF6955-17-61 22:42:00 Test Item Value Reference Range Interpretation Comments Segs (test code = Segs) 62.0 45.0-75.0 N [facility] TylerGdlbaziVSUGXXAEES8250-26-12 22:42:00 Test Item Value Reference Range Interpretation Comments MPV (test code = MPV) 9.0 7.4-10.4 N [facility] TylerXmvsjpyJSAJDFUKUI7178-22-08 22:42:00 Test Item Value Reference Range Interpretation Comments MCH (test code = MCH) 30.3 pg 27.0-31.0 N [facility] TylerKsxdffsSHWYMNVBYW5007-27-10 22:42:00 Test Item Value Reference Range Interpretation Comments MCHC (test code = MCHC) 33.5 32.0-36.0 N [facility] TylerIrbqrnpQYUYNDABAQ3827-12-26 22:42:00 Test Item Value Reference Range Interpretation Comments Platelet (test code = Platelet) 204 133-450 N [facility] TylerWixtmgfICBNDCSZLL0007-75-45 22:42:00 Test Item Value Reference Range Interpretation Comments RDW (test code = RDW) 12.0 11.5-14.5 N [facility] TylerBofwrykNEXTTVMRYC7534-80-38 22:42:00 Test Item Value Reference Range Interpretation Comments RBC (test code = RBC) 4.38 4.70-6.10 L [facility] TylerHerduucFPUPTPUMIA0690-72-93 22:42:00 Test Item Value Reference Range Interpretation Comments WBC (test code = WBC) 8.0 3.7-10.4 N [facility] TylerPyednrcGRIIMMZSXJ9782-74-89 22:42:00 Test Item Value Reference Range Interpretation Comments MCV (test code = MCV) 90.5 80.0-94.0 N [facility] TylerZhpwwmpGKKXFLYHUQ0498-26-09 22:42:00 Test Item Value Reference Range Interpretation Comments Hgb (test code = Hgb) 13.3 14.0-18.0 L [facility] CenterXijqcvtBBTVHJWWH4756-33-72 22:42:00 Test Item Value Reference Range Interpretation Comments Sodium Lvl (test code = Sodium Lvl) 140 135-145 N [facility] TylerKwnduwyMYLDFPYWAD0502-77-41 22:42:00 Test Item Value Reference Range Interpretation Comments Hct (test code = Hct) 39.7 42.0-54.0 L [facility] CenterXtutskjKYSOHCQNG7001-64-46 22:42:00 Test Item Value Reference Range Interpretation Comments BUN (test code = BUN) 13 7-22 N [facility] CenterIsgvxhlBFUEPZBYN5696-28-78 22:42:00 Test Item Value Reference Range Interpretation Comments Glucose Lvl (test code = Glucose Lvl) 83 70-99 N [facility] CenterSpzhzitRULOQBPPZ2682-60-45 22:42:00 Test Item Value Reference Range Interpretation Comments Creatinine Lvl (test code = Creatinine 0.7 0.5-1.4 N Lvl) [facility] CenterUaanrxqJGNSVDHFD6109-78-20 22:42:00 Test Item Value Reference Range Interpretation Comments Calcium Lvl (test code = Calcium Lvl) 9.3 8.5-10.5 N [facility] CenterDtruuheLWDVMRYLC0542-53-87 22:42:00 Test Item Value Reference Range Interpretation Comments CO2 (test code = CO2) 31 24-32 N [facility] CenterBqdeptmFBIZEBESG5266-22-62 22:42:00 Test Item Value Reference Range Interpretation Comments AGAP (test code = AGAP) 11.0 10.0-20.0 N [facility] CenterIzyqmkfUETSEIVYT5169-88-39 22:42:00 Test Item Value Reference Range Interpretation Comments eGFR (test code = eGFR) 131 [facility] CenterWzpvyfoJWBTNQYFT2810-23-17 22:42:00 Test Item Value Reference Range Interpretation Comments Sodium Lvl (test code = Sodium Lvl) 140 135-145 N [facility] CenterXxtbtnvDERXHRLQK3375-46-46 22:42:00 Test Item Value Reference Range Interpretation Comments Creatinine Lvl (test code = Creatinine 0.7 0.5-1.4 N Lvl) [facility] CenterKttajdzDCXGSHFQK1897-97-13 22:42:00 Test Item Value Reference Range Interpretation Comments Potassium Lvl (test code = Potassium 5.0 3.5-5.1 N Lvl) [facility] CenterNcdqmnlAPBLNJSRV8955-69-60 22:42:00 Test Item Value Reference Range Interpretation Comments Chloride Lvl (test code = Chloride Lvl) 103 95-109 N [facility] CenterMdbvlooGZHPIGSTL3530-31-86 22:42:00 Test Item Value Reference Range Interpretation Comments Phosphorus (test code = Phosphorus) 4.7 2.5-4.5 H [facility] CenterMmbnxvzURWRZWQKI1906-97-50 22:42:00 Test Item Value Reference Range Interpretation Comments Magnesium Lvl (test code = Magnesium 1.8 1.8-2.4 N Lvl) [facility] CenterDlllpmdAEQYNQHPP1808-32-08 22:42:00 Test Item Value Reference Range Interpretation Comments Potassium Lvl (test code = Potassium 5.0 3.5-5.1 N Lvl) [facility] TylerHftgihjXLPSWHQTJK9898-05-58 22:42:00 Test Item Value Reference Range Interpretation Comments Basophils # (test code 0.1 See_Comment N [Aut omated message] The = Basophils #) system which generated this result tra nsmitted reference range : <=0.2. The reference r terri was not used to int erpret this result as normal/abnormal . [facility] TylerXggyvjnUQDNXDIUTF7900-26-34 22:42:00 Test Item Value Reference Range Interpretation Comments Lymphocytes # (test code = Lymphocytes 2.5 1.0-5.5 N #) [facility] TylerNkmordwGNJNQJJQBD4657-45-04 22:42:00 Test Item Value Reference Range Interpretation Comments Basophils (test code = 0.7 See_Comment N [Aut omated message] The Basophils) system which ge nerated this result tra nsmitted reference range : <=1.0. The reference r terri was not used to int erpret this result as normal/abnormal . [facility] TylerCbrjjkgCKGUONTSPQ7525-00-78 22:42:00 Test Item Value Reference Range Interpretation Comments Monocytes # (test code 0.4 See_Comment N [Aut omated message] The = Monocytes #) system which generated this result tra nsmitted reference range : <=0.8. The reference r terri was not used to int erpret this result as normal/abnormal . [facility] TylerMymoumcLEPJNTKHBW5198-42-52 22:42:00 Test Item Value Reference Range Interpretation Comments Segs-Bands # (test code = Segs-Bands #) 4.9 1.5-8.1 N [facility] TylerHqlzljmZTTMDOUOBB9054-21-23 22:42:00 Test Item Value Reference Range Interpretation Comments Eosinophils (test code = 1.0 See_Comment N [A utomated message] The Eosinophils) system which ge nerated this result tra nsmitted reference range : <=4.0. The reference r terri was not used to int erpret this result as normal/abnormal . [facility] TylerHatgozfQXWCARRCVB6204-10-17 22:42:00 Test Item Value Reference Range Interpretation Comments Eosinophils # (test code 0.1 See_Comment N [A utomated message] The = Eosinophils #) system whic h generated this result tra nsmitted reference range : <=0.5. The reference r terri was not used to int erpret this result as normal/abnormal . [facility] TylerEhsyeikFXJUACRMKA5279-42-52 22:42:00 Test Item Value Reference Range Interpretation Comments Monocytes (test code = Monocytes) 5.0 2.0-12.0 N [facility] TylerCmbnmobOGUZZNGEET7198-52-50 22:42:00 Test Item Value Reference Range Interpretation Comments Lymphocytes (test code = Lymphocytes) 31.3 20.0-40.0 N [facility] TylerOxiooriZYDONKZRMD6120-26-42 22:42:00 Test Item Value Reference Range Interpretation Comments Segs (test code = Segs) 62.0 45.0-75.0 N [facility] CenterVhtvrsuXWFUAZFJX4783-89-05 22:42:00 Test Item Value Reference Range Interpretation Comments Chloride Lvl (test code = Chloride Lvl) 103 95-109 N [facility] TylerRiiqwrgLRGAAZWUOB0054-72-05 22:42:00 Test Item Value Reference Range Interpretation Comments MPV (test code = MPV) 9.0 7.4-10.4 N [facility] TylerZlsnuvpUSJCHMHUMR8427-29-04 22:42:00 Test Item Value Reference Range Interpretation Comments MCH (test code = MCH) 30.3 pg 27.0-31.0 N [facility] TylerFcuewacCOHYFHMMQY6670-64-07 22:42:00 Test Item Value Reference Range Interpretation Comments MCHC (test code = MCHC) 33.5 32.0-36.0 N [facility] TylerCvtilqmCRVHNVUCZX5247-93-17 22:42:00 Test Item Value Reference Range Interpretation Comments Platelet (test code = Platelet) 204 133-450 N [facility] TylerGojjuytPXXAGFYLPA4676-43-80 22:42:00 Test Item Value Reference Range Interpretation Comments RDW (test code = RDW) 12.0 11.5-14.5 N [facility] TylerWgexrejNSXWPYDEEJ9436-47-02 22:42:00 Test Item Value Reference Range Interpretation Comments RBC (test code = RBC) 4.38 4.70-6.10 L [facility] TylerTqvdqojNOAIUDZXEJ7502-66-45 22:42:00 Test Item Value Reference Range Interpretation Comments WBC (test code = WBC) 8.0 3.7-10.4 N [facility] TylerOvxlabuAYDPFCGMUJ2552-12-29 22:42:00 Test Item Value Reference Range Interpretation Comments MCV (test code = MCV) 90.5 80.0-94.0 N [facility] TylerPugfbboNDGYYABEDR9159-82-74 22:42:00 Test Item Value Reference Range Interpretation Comments Hgb (test code = Hgb) 13.3 14.0-18.0 L [facility] TylerFvxsjqcOYXBSTKZJA1499-10-82 22:42:00 Test Item Value Reference Range Interpretation Comments Hct (test code = Hct) 39.7 42.0-54.0 L [facility] CenterCurqkphOWSTEJRVA3729-42-69 22:42:00 Test Item Value Reference Range Interpretation Comments Phosphorus (test code = Phosphorus) 4.7 2.5-4.5 H [facility] CenterXdqcmumHOIBYQTUY7809-03-58 22:42:00 Test Item Value Reference Range Interpretation Comments BUN (test code = BUN) 13 7-22 N [facility] CenterNyungkqFLKYMNUQS6146-50-90 22:42:00 Test Item Value Reference Range Interpretation Comments Glucose Lvl (test code = Glucose Lvl) 83 70-99 N [facility] CenterOqgtctlRMEDAQLBO6850-80-06 22:42:00 Test Item Value Reference Range Interpretation Comments Calcium Lvl (test code = Calcium Lvl) 9.3 8.5-10.5 N [facility] CenterWksoziqEXDVFCUZR0799-66-81 22:42:00 Test Item Value Reference Range Interpretation Comments Magnesium Lvl (test code = Magnesium 1.8 1.8-2.4 N Lvl) [facility] CenterXemfambAZFBJOJDG8452-90-46 22:42:00 Test Item Value Reference Range Interpretation Comments CO2 (test code = CO2) 31 24-32 N [facility] CenterJhndbjlILMZHLWUJ6399-79-48 22:42:00 Test Item Value Reference Range Interpretation Comments AGAP (test code = AGAP) 11.0 10.0-20.0 N [facility] CenterRkhztyjCXJIXTJGI2659-68-25 22:42:00 Test Item Value Reference Range Interpretation Comments eGFR (test code = eGFR) 131 [facility] CenterEgpzcbsTGNYTFWWY6412-74-71 22:42:00 Test Item Value Reference Range Interpretation Comments Sodium Lvl (test code = Sodium Lvl) 140 135-145 N [facility] CenterQpauydfHZCUAWYKM0373-43-00 22:42:00 Test Item Value Reference Range Interpretation Comments Creatinine Lvl (test code = Creatinine 0.7 0.5-1.4 N Lvl) [facility] CenterFhcxevnGNFFAZYCJ5719-09-78 22:42:00 Test Item Value Reference Range Interpretation Comments Potassium Lvl (test code = Potassium 5.0 3.5-5.1 N Lvl) [facility] CenterRwpxjdpFFNQDWSPS9048-83-09 22:42:00 Test Item Value Reference Range Interpretation Comments Chloride Lvl (test code = Chloride Lvl) 103 95-109 N [facility] CenterOvmcplyFWUKINUKH5701-44-20 22:42:00 Test Item Value Reference Range Interpretation Comments Phosphorus (test code = Phosphorus) 4.7 2.5-4.5 H [facility] CenterGcjxybjHSLGKGHUT1514-29-71 22:42:00 Test Item Value Reference Range Interpretation Comments Magnesium Lvl (test code = Magnesium 1.8 1.8-2.4 N Lvl) [facility] TylerKxervtbNSMRNOEUWC4340-98-24 22:42:00 Test Item Value Reference Range Interpretation Comments Basophils # (test code 0.1 See_Comment N [Aut omated message] The = Basophils #) system which generated this result tra nsmitted reference range : <=0.2. The reference r terri was not used to int erpret this result as normal/abnormal . [facility] TylerDycidfsAHIMNUPJGQ3581-11-22 22:42:00 Test Item Value Reference Range Interpretation Comments Basophils # (test code 0.1 See_Comment N [Aut omated message] The = Basophils #) system which generated this result tra nsmitted reference range : <=0.2. The reference r terri was not used to int erpret this result as normal/abnormal . [facility] TylerTnexxekOGYFERCIIY3307-48-37 22:42:00 Test Item Value Reference Range Interpretation Comments Lymphocytes # (test code = Lymphocytes 2.5 1.0-5.5 N #) [facility] TylerLekyyhjUFNDJZLPUT1250-46-36 22:42:00 Test Item Value Reference Range Interpretation Comments Basophils (test code = 0.7 See_Comment N [Aut omated message] The Basophils) system which ge nerated this result tra nsmitted reference range : <=1.0. The reference r terri was not used to int erpret this result as normal/abnormal . [facility] TylerRghhxwoRGQXHLYNVM4941-35-34 22:42:00 Test Item Value Reference Range Interpretation Comments Monocytes # (test code 0.4 See_Comment N [Aut omated message] The = Monocytes #) system which generated this result tra nsmitted reference range : <=0.8. The reference r terri was not used to int erpret this result as normal/abnormal . [facility] TylerVjqjzbjZKHHZKYZJT0030-90-38 22:42:00 Test Item Value Reference Range Interpretation Comments Segs-Bands # (test code = Segs-Bands #) 4.9 1.5-8.1 N [facility] TylerFxwwdcdKPHILWCWHA7075-09-07 22:42:00 Test Item Value Reference Range Interpretation Comments Eosinophils (test code = 1.0 See_Comment N [A utomated message] The Eosinophils) system which ge nerated this result tra nsmitted reference range : <=4.0. The reference r terri was not used to int erpret this result as normal/abnormal . [facility] TylerVhwhpwgRRGLENGJHD1957-30-02 22:42:00 Test Item Value Reference Range Interpretation Comments Eosinophils # (test code 0.1 See_Comment N [A utomated message] The = Eosinophils #) system whic h generated this result tra nsmitted reference range : <=0.5. The reference r terri was not used to int erpret this result as normal/abnormal . [facility] TylerFikysypSFYYURQHFJ2702-56-12 22:42:00 Test Item Value Reference Range Interpretation Comments Monocytes (test code = Monocytes) 5.0 2.0-12.0 N [facility] TylerOrsydmpJAYVQRWKBV4913-16-52 22:42:00 Test Item Value Reference Range Interpretation Comments Lymphocytes (test code = Lymphocytes) 31.3 20.0-40.0 N [facility] TylerSwjvyezNDASMAAJBA4830-78-56 22:42:00 Test Item Value Reference Range Interpretation Comments Segs (test code = Segs) 62.0 45.0-75.0 N [facility] TylerEyaboelCCMTHLQRTM8719-40-65 22:42:00 Test Item Value Reference Range Interpretation Comments MPV (test code = MPV) 9.0 7.4-10.4 N [facility] TylerBmrzqpzBOTVPHFQTH0224-43-13 22:42:00 Test Item Value Reference Range Interpretation Comments Lymphocytes # (test code = Lymphocytes 2.5 1.0-5.5 N #) [facility] TylerWqzlbxgPYMQPGHTSK8399-76-02 22:42:00 Test Item Value Reference Range Interpretation Comments MCH (test code = MCH) 30.3 pg 27.0-31.0 N [facility] TylerBuiaeodGRIOCNKURF4352-02-80 22:42:00 Test Item Value Reference Range Interpretation Comments MCHC (test code = MCHC) 33.5 32.0-36.0 N [facility] TylerVjlmnstVYSRDLWKDI4964-98-68 22:42:00 Test Item Value Reference Range Interpretation Comments Platelet (test code = Platelet) 204 133-450 N [facility]LtmgdfvCZITYVGJMD9239-81-12 22:42:00 Test Item Value Reference Range Interpretation Comments RDW (test code = RDW) 12.0 11.5-14.5 N [facility] TylerVdrjlchJLVDBXBZAL4362-33-52 22:42:00 Test Item Value Reference Range Interpretation Comments RBC (test code = RBC) 4.38 4.70-6.10 L [facility] TylerWotkybkCCLMQMTDNM1928-69-86 22:42:00 Test Item Value Reference Range Interpretation Comments WBC (test code = WBC) 8.0 3.7-10.4 N [facility] TylerFahulfzQLAYKFRWFK8269-93-30 22:42:00 Test Item Value Reference Range Interpretation Comments MCV (test code = MCV) 90.5 80.0-94.0 N [facility] TylerUjxvgzkABRFUECRVB0346-77-35 22:42:00 Test Item Value Reference Range Interpretation Comments Hgb (test code = Hgb) 13.3 14.0-18.0 L [facility] TylerBeiklqeBLXLUMTATH8654-89-40 22:42:00 Test Item Value Reference Range Interpretation Comments Hct (test code = Hct) 39.7 42.0-54.0 L [facility] TylerZvyeywqYVAHQUXCYH1054-88-18 22:42:00 Test Item Value Reference Range Interpretation Comments Basophils (test code = 0.7 See_Comment N [Aut omated message] The Basophils) system which ge nerated this result tra nsmitted reference range : <=1.0. The reference r terri was not used to int erpret this result as normal/abnormal . [facility] CenterNoxgmtpQZVCAQJUD6631-29-39 22:42:00 Test Item Value Reference Range Interpretation Comments BUN (test code = BUN) 13 7-22 N [facility] CenterOyhvcwlHCWQFGRCP8304-30-42 22:42:00 Test Item Value Reference Range Interpretation Comments Glucose Lvl (test code = Glucose Lvl) 83 70-99 N [facility] CenterUpjaxdnDJUQIOYYN5766-34-93 22:42:00 Test Item Value Reference Range Interpretation Comments Calcium Lvl (test code = Calcium Lvl) 9.3 8.5-10.5 N [facility] CenterPlnmoriHYSDQBYHR8098-21-28 22:42:00 Test Item Value Reference Range Interpretation Comments CO2 (test code = CO2) 31 24-32 N [facility] TylerTuwpmljDHWLYGJRRZ5005-23-33 22:42:00 Test Item Value Reference Range Interpretation Comments Monocytes # (test code 0.4 See_Comment N [Aut omated message] The = Monocytes #) system which generated this result tra nsmitted reference range : <=0.8. The reference r terri was not used to int erpret this result as normal/abnormal . [facility] CenterMqedbhxENRSETVJJ9372-27-44 22:42:00 Test Item Value Reference Range Interpretation Comments AGAP (test code = AGAP) 11.0 10.0-20.0 N [facility] CenterIblliteWHWLKKUTX3782-33-11 22:42:00 Test Item Value Reference Range Interpretation Comments eGFR (test code = eGFR) 131 [facility] CenterAezzfmyOCODFJQZU3649-48-73 22:42:00 Test Item Value Reference Range Interpretation Comments Sodium Lvl (test code = Sodium Lvl) 140 135-145 N [facility] CenterIztjyhwUCROEXRPF3203-17-72 22:42:00 Test Item Value Reference Range Interpretation Comments Creatinine Lvl (test code = Creatinine 0.7 0.5-1.4 N Lvl) [facility] CenterZzopdeaQEPKXTAYI1686-44-74 22:42:00 Test Item Value Reference Range Interpretation Comments Potassium Lvl (test code = Potassium 5.0 3.5-5.1 N Lvl) [facility] CenterAsehukaXEHMLDZGB3002-66-02 22:42:00 Test Item Value Reference Range Interpretation Comments Chloride Lvl (test code = Chloride Lvl) 103 95-109 N [facility] CenterVjjclxmOLOTFJSIH6844-70-75 22:42:00 Test Item Value Reference Range Interpretation Comments Phosphorus (test code = Phosphorus) 4.7 2.5-4.5 H [facility] CenterAlvjnxvLRUZGERLC1801-83-63 22:42:00 Test Item Value Reference Range Interpretation Comments Magnesium Lvl (test code = Magnesium 1.8 1.8-2.4 N Lvl) [facility]VwvlkcjIVFTIARSQO7943-73-06 22:42:00 Test Item Value Reference Range Interpretation Comments Basophils # (test code 0.1 See_Comment N [Aut omated message] The = Basophils #) system which generated this result tra nsmitted reference range : <=0.2. The reference r terri was not used to int erpret this result as normal/abnormal . [facility] TylerZeqigsdEIIGYAZYOW9144-78-03 22:42:00 Test Item Value Reference Range Interpretation Comments Lymphocytes # (test code = Lymphocytes 2.5 1.0-5.5 N #) [facility] TylerFvxyaweUOBSTPPHQF6675-29-79 22:42:00 Test Item Value Reference Range Interpretation Comments Segs-Bands # (test code = Segs-Bands #) 4.9 1.5-8.1 N [facility] TylerXsaolmgBHKMITCDPL5112-11-94 22:42:00 Test Item Value Reference Range Interpretation Comments Basophils (test code = 0.7 See_Comment N [Aut omated message] The Basophils) system which ge nerated this result tra nsmitted reference range : <=1.0. The reference r terri was not used to int erpret this result as normal/abnormal . [facility] TylerEgstjcpNUAGZMPMDP9273-33-67 22:42:00 Test Item Value Reference Range Interpretation Comments Monocytes # (test code 0.4 See_Comment N [Aut omated message] The = Monocytes #) system which generated this result tra nsmitted reference range : <=0.8. The reference r terri was not used to int erpret this result as normal/abnormal . [facility] TylerIoxtbsuJNTQWMKCIQ6760-44-15 22:42:00 Test Item Value Reference Range Interpretation Comments Segs-Bands # (test code = Segs-Bands #) 4.9 1.5-8.1 N [facility] TylerOqjqetzMNSEANSFWB0601-79-08 22:42:00 Test Item Value Reference Range Interpretation Comments Eosinophils (test code = 1.0 See_Comment N [A utomated message] The Eosinophils) system which ge nerated this result tra nsmitted reference range : <=4.0. The reference r terri was not used to int erpret this result as normal/abnormal . [facility] TylerJhbesmoBPOOGRIEPD7213-85-45 22:42:00 Test Item Value Reference Range Interpretation Comments Eosinophils # (test code 0.1 See_Comment N [A utomated message] The = Eosinophils #) system whic h generated this result tra nsmitted reference range : <=0.5. The reference r terri was not used to int erpret this result as normal/abnormal . [facility] TylerFmduqliVJJZQXEJOD3181-56-87 22:42:00 Test Item Value Reference Range Interpretation Comments Monocytes (test code = Monocytes) 5.0 2.0-12.0 N [facility] TylerAebwtjnCJHHQQTNXD0904-35-49 22:42:00 Test Item Value Reference Range Interpretation Comments Lymphocytes (test code = Lymphocytes) 31.3 20.0-40.0 N [facility] TylerZwacycoNDINDWAUYK9780-12-77 22:42:00 Test Item Value Reference Range Interpretation Comments Segs (test code = Segs) 62.0 45.0-75.0 N [facility] TylerLlcukviMZTOXFEVAT9674-58-28 22:42:00 Test Item Value Reference Range Interpretation Comments MPV (test code = MPV) 9.0 7.4-10.4 N [facility] TylerIdrvohaJWCYPYJNML1044-25-66 22:42:00 Test Item Value Reference Range Interpretation Comments MCH (test code = MCH) 30.3 pg 27.0-31.0 N [facility] TylerCpevrybPCNNGVUKTN0458-59-52 22:42:00 Test Item Value Reference Range Interpretation Comments Eosinophils (test code = 1.0 See_Comment N [A utomated message] The Eosinophils) system which ge nerated this result tra nsmitted reference range : <=4.0. The reference r terri was not used to int erpret this result as normal/abnormal . [facility] TylerGjihmfnNICYPHQWCO2622-00-89 22:42:00 Test Item Value Reference Range Interpretation Comments MCHC (test code = MCHC) 33.5 32.0-36.0 N [facility] TylerRjvmzpuHEPUNHGDZT4353-20-65 22:42:00 Test Item Value Reference Range Interpretation Comments Platelet (test code = Platelet) 204 133-450 N [facility] TylerWiqryayGNYKESDUHN0618-95-44 22:42:00 Test Item Value Reference Range Interpretation Comments RDW (test code = RDW) 12.0 11.5-14.5 N [facility] TylerAgeqvyzTKLQRVBRAV8382-69-76 22:42:00 Test Item Value Reference Range Interpretation Comments RBC (test code = RBC) 4.38 4.70-6.10 L [facility] TylerVbdggctDRMFXNLVXZ8337-49-71 22:42:00 Test Item Value Reference Range Interpretation Comments WBC (test code = WBC) 8.0 3.7-10.4 N [facility] TylerAaqiljkACDHBFLYAT9863-80-33 22:42:00 Test Item Value Reference Range Interpretation Comments MCV (test code = MCV) 90.5 80.0-94.0 N [facility] TylerOztpdifEFDLWGEABC8875-03-52 22:42:00 Test Item Value Reference Range Interpretation Comments Hgb (test code = Hgb) 13.3 14.0-18.0 L [facility] TylerPxtcxauNMPIHTCGNF0298-46-30 22:42:00 Test Item Value Reference Range Interpretation Comments Hct (test code = Hct) 39.7 42.0-54.0 L [facility] TylerJooseegUOOIVONWAF4412-87-14 22:42:00 Test Item Value Reference Range Interpretation Comments Eosinophils # (test code 0.1 See_Comment N [A utomated message] The = Eosinophils #) system whic h generated this result tra nsmitted reference range : <=0.5. The reference r terri was not used to int erpret this result as normal/abnormal . [facility] CenterDqagxfcQLGIFTMER5205-90-82 22:42:00 Test Item Value Reference Range Interpretation Comments BUN (test code = BUN) 13 7-22 N [facility] CenterEdhqmfkOPBMLZGDP2855-06-97 22:42:00 Test Item Value Reference Range Interpretation Comments Glucose Lvl (test code = Glucose Lvl) 83 70-99 N [facility] CenterLcjksfdXVWDYWMEP2387-76-77 22:42:00 Test Item Value Reference Range Interpretation Comments Calcium Lvl (test code = Calcium Lvl) 9.3 8.5-10.5 N [facility] CenterSwcexnkNOFTUBDCT3401-37-24 22:42:00 Test Item Value Reference Range Interpretation Comments CO2 (test code = CO2) 31 24-32 N [facility] CenterOkldnrbBCOVUBKSH7131-98-80 22:42:00 Test Item Value Reference Range Interpretation Comments AGAP (test code = AGAP) 11.0 10.0-20.0 N [facility] TylerWzigoxqPCOGHCRAMI7198-60-10 22:42:00 Test Item Value Reference Range Interpretation Comments Monocytes (test code = Monocytes) 5.0 2.0-12.0 N [facility] CenterLtvgwwmRVRVROQPU9996-56-16 22:42:00 Test Item Value Reference Range Interpretation Comments eGFR (test code = eGFR) 131 [facility] CenterWamofwsXMVVWYPQA8474-35-67 22:42:00 Test Item Value Reference Range Interpretation Comments Sodium Lvl (test code = Sodium Lvl) 140 135-145 N [facility] CenterUvcxprcXLLSEOXWZ9695-98-60 22:42:00 Test Item Value Reference Range Interpretation Comments Creatinine Lvl (test code = Creatinine 0.7 0.5-1.4 N Lvl) [facility] CenterKyjskllKZMJXCZCR4589-10-99 22:42:00 Test Item Value Reference Range Interpretation Comments Potassium Lvl (test code = Potassium 5.0 3.5-5.1 N Lvl) [facility] CenterXgphfvqDMUVSEDSG5776-06-66 22:42:00 Test Item Value Reference Range Interpretation Comments Chloride Lvl (test code = Chloride Lvl) 103 95-109 N [facility] CenterQhlevchNRKHOCJSX4356-70-80 22:42:00 Test Item Value Reference Range Interpretation Comments Phosphorus (test code = Phosphorus) 4.7 2.5-4.5 H [facility] CenterYpwrlnjWMPUROUXP7940-21-94 22:42:00 Test Item Value Reference Range Interpretation Comments Magnesium Lvl (test code = Magnesium 1.8 1.8-2.4 N Lvl) [facility] TylerRivitblKURRPJFJFT5223-82-96 22:42:00 Test Item Value Reference Range Interpretation Comments Basophils # (test code 0.1 See_Comment N [Aut omated message] The = Basophils #) system which generated this result tra nsmitted reference range : <=0.2. The reference r terri was not used to int erpret this result as normal/abnormal . [facility] TylerJvvldwnJEEASQATUO5701-96-67 22:42:00 Test Item Value Reference Range Interpretation Comments Lymphocytes # (test code = Lymphocytes 2.5 1.0-5.5 N #) [facility] TylerBoelgmfAGKCKEDYYP9603-88-94 22:42:00 Test Item Value Reference Range Interpretation Comments Basophils (test code = 0.7 See_Comment N [Aut omated message] The Basophils) system which ge nerated this result tra nsmitted reference range : <=1.0. The reference r terri was not used to int erpret this result as normal/abnormal . [facility] TylerWiknjdwVODTQXYXSI7488-19-35 22:42:00 Test Item Value Reference Range Interpretation Comments Lymphocytes (test code = Lymphocytes) 31.3 20.0-40.0 N [facility] TylerAqlzwvuEIRLLMNTUP0510-23-07 22:42:00 Test Item Value Reference Range Interpretation Comments Monocytes # (test code 0.4 See_Comment N [Aut omated message] The = Monocytes #) system which generated this result tra nsmitted reference range : <=0.8. The reference r terri was not used to int erpret this result as normal/abnormal . [facility] TylerFvhiaqfSXHJKCQUDL6063-71-96 22:42:00 Test Item Value Reference Range Interpretation Comments Segs-Bands # (test code = Segs-Bands #) 4.9 1.5-8.1 N [facility] TylerDoxiajjEMUDQZDCYH2740-08-76 22:42:00 Test Item Value Reference Range Interpretation Comments Eosinophils (test code = 1.0 See_Comment N [A utomated message] The Eosinophils) system which ge nerated this result tra nsmitted reference range : <=4.0. The reference r terri was not used to int erpret this result as normal/abnormal . [facility] TylerKthgxzpIHWSOLVPEK9632-86-17 22:42:00 Test Item Value Reference Range Interpretation Comments Eosinophils # (test code 0.1 See_Comment N [A utomated message] The = Eosinophils #) system whic h generated this result tra nsmitted reference range : <=0.5. The reference r terri was not used to int erpret this result as normal/abnormal . [facility] TylerEggbrxuUYLQPBOIYO3636-82-72 22:42:00 Test Item Value Reference Range Interpretation Comments Monocytes (test code = Monocytes) 5.0 2.0-12.0 N [facility] TylerAatrfidZNYTGWXLYQ3168-46-26 22:42:00 Test Item Value Reference Range Interpretation Comments Lymphocytes (test code = Lymphocytes) 31.3 20.0-40.0 N [facility] TylerNpjvfgtHBGDGKTCHN4988-03-61 22:42:00 Test Item Value Reference Range Interpretation Comments Segs (test code = Segs) 62.0 45.0-75.0 N [facility] TylerTnrxsysAQBGFPPPZY0067-14-80 22:42:00 Test Item Value Reference Range Interpretation Comments MPV (test code = MPV) 9.0 7.4-10.4 N [facility] TylerLfzvpfuKPFFJIHODH0375-72-31 22:42:00 Test Item Value Reference Range Interpretation Comments MCH (test code = MCH) 30.3 pg 27.0-31.0 N [facility] TylerDyfjdffIJLTLQVPSA2565-50-59 22:42:00 Test Item Value Reference Range Interpretation Comments MCHC (test code = MCHC) 33.5 32.0-36.0 N [facility] TylerYosihzlPAZQGZEUHK7430-55-15 22:42:00 Test Item Value Reference Range Interpretation Comments Segs (test code = Segs) 62.0 45.0-75.0 N [facility] TylerJaqvstnYNLBSTXUST5158-17-69 22:42:00 Test Item Value Reference Range Interpretation Comments Platelet (test code = Platelet) 204 133-450 N [facility] TylerOdumlyrMQSPLBPTQQ3011-39-89 22:42:00 Test Item Value Reference Range Interpretation Comments RDW (test code = RDW) 12.0 11.5-14.5 N [facility] TylerCoonoxzUHUSJQONYF7116-56-32 22:42:00 Test Item Value Reference Range Interpretation Comments RBC (test code = RBC) 4.38 4.70-6.10 L [facility] TylerEcfulsrUXZVCNTSVR5731-64-69 22:42:00 Test Item Value Reference Range Interpretation Comments WBC (test code = WBC) 8.0 3.7-10.4 N [facility] TylerLourugbBJOXJWMPQE1620-43-01 22:42:00 Test Item Value Reference Range Interpretation Comments MCV (test code = MCV) 90.5 80.0-94.0 N [facility] TylerDozhparUGYESGHYSK0276-00-80 22:42:00 Test Item Value Reference Range Interpretation Comments Hgb (test code = Hgb) 13.3 14.0-18.0 L [facility] TylerEhxgmotRWBJOSAWQN0851-18-02 22:42:00 Test Item Value Reference Range Interpretation Comments Hct (test code = Hct) 39.7 42.0-54.0 L [facility] TylerFracwtmZOCSAHXNSE2765-58-02 22:42:00 Test Item Value Reference Range Interpretation Comments MPV (test code = MPV) 9.0 7.4-10.4 N [facility] TylerEjmaxhzVXDCWHLPXZ8172-27-91 22:42:00 Test Item Value Reference Range Interpretation Comments MCH (test code = MCH) 30.3 pg 27.0-31.0 N [facility] TylerDfzptutYRYGFMNAPS5802-90-73 22:42:00 Test Item Value Reference Range Interpretation Comments MCHC (test code = MCHC) 33.5 32.0-36.0 N [facility] TylerGksiszeTVZVFHSGEO4413-37-81 22:42:00 Test Item Value Reference Range Interpretation Comments Platelet (test code = Platelet) 204 133-450 N [facility] TylerRhvcjrwLIBLVMGAJH3939-63-80 22:42:00 Test Item Value Reference Range Interpretation Comments RDW (test code = RDW) 12.0 11.5-14.5 N [facility] TylerPajaqmeICBJBGQQCC4472-59-64 22:42:00 Test Item Value Reference Range Interpretation Comments RBC (test code = RBC) 4.38 4.70-6.10 L [facility] TylerVdfcbmrUHYQHIETEF6786-64-84 22:42:00 Test Item Value Reference Range Interpretation Comments WBC (test code = WBC) 8.0 3.7-10.4 N [facility] TylerOmgjvmyYWYYZURVCW9168-25-02 22:42:00 Test Item Value Reference Range Interpretation Comments MCV (test code = MCV) 90.5 80.0-94.0 N [facility] TylerJhpnfgcYAMNITBBBR0570-32-71 22:42:00 Test Item Value Reference Range Interpretation Comments Hgb (test code = Hgb) 13.3 14.0-18.0 L [facility] TylerHszcqatGZYQLWEXPV6699-38-39 22:42:00 Test Item Value Reference Range Interpretation Comments Hct (test code = Hct) 39.7 42.0-54.0 L [facility] CenterNcuqlwuUKGNKSCON6040-12-98 22:42:00 Test Item Value Reference Range Interpretation Comments BUN (test code = BUN) 13 7-22 N [facility] CenterCfqybgsFWNDYFMYL7398-22-14 22:42:00 Test Item Value Reference Range Interpretation Comments Glucose Lvl (test code = Glucose Lvl) 83 70-99 N [facility] CenterOwdmhxoAEYXRYIZK4400-04-04 22:42:00 Test Item Value Reference Range Interpretation Comments Calcium Lvl (test code = Calcium Lvl) 9.3 8.5-10.5 N [facility] CenterGxcwjqePORSFVKFV5167-04-04 22:42:00 Test Item Value Reference Range Interpretation Comments CO2 (test code = CO2) 31 24-32 N [facility] CenterLkvkrvuBEUOMFORX5630-49-64 22:42:00 Test Item Value Reference Range Interpretation Comments AGAP (test code = AGAP) 11.0 10.0-20.0 N [facility] CenterKgkiculOCGRTWMZP5265-57-52 22:42:00 Test Item Value Reference Range Interpretation Comments eGFR (test code = eGFR) 131 [facility] CenterJpaodjfGJFKPIYNE7768-26-06 22:42:00 Test Item Value Reference Range Interpretation Comments Sodium Lvl (test code = Sodium Lvl) 140 135-145 N [facility] CenterFpgxrceDTOXADEQM9252-37-09 22:42:00 Test Item Value Reference Range Interpretation Comments Creatinine Lvl (test code = Creatinine 0.7 0.5-1.4 N Lvl) [facility] CenterBjyjrbjOUSUYWHWA5279-87-10 22:42:00 Test Item Value Reference Range Interpretation Comments Potassium Lvl (test code = Potassium 5.0 3.5-5.1 N Lvl) [facility] CenterZutgxarIGHRQXDWG5896-45-86 22:42:00 Test Item Value Reference Range Interpretation Comments Chloride Lvl (test code = Chloride Lvl) 103 95-109 N [facility] CenterJvkudyyDFCIVVWSH7325-55-60 22:42:00 Test Item Value Reference Range Interpretation Comments Phosphorus (test code = Phosphorus) 4.7 2.5-4.5 H [facility] CenterTqcywwjKAURLPDNK4346-08-41 22:42:00 Test Item Value Reference Range Interpretation Comments Magnesium Lvl (test code = Magnesium 1.8 1.8-2.4 N Lvl) [facility] TylerGofnellGRRXCQIBSX8339-38-60 22:42:00 Test Item Value Reference Range Interpretation Comments Basophils # (test code 0.1 See_Comment N [Aut omated message] The = Basophils #) system which generated this result tra nsmitted reference range : <=0.2. The reference r terri was not used to int erpret this result as normal/abnormal . [facility] TylerFxbrsdqEMXIJCQDLZ4058-07-98 22:42:00 Test Item Value Reference Range Interpretation Comments Lymphocytes # (test code = Lymphocytes 2.5 1.0-5.5 N #) [facility] TylerRwmqfuyHLCWXDBQCC4396-47-41 22:42:00 Test Item Value Reference Range Interpretation Comments Basophils (test code = 0.7 See_Comment N [Aut omated message] The Basophils) system which ge nerated this result tra nsmitted reference range : <=1.0. The reference r terri was not used to int erpret this result as normal/abnormal . [facility] TylerOpbzjbhIFGIVCBZZX9736-65-74 22:42:00 Test Item Value Reference Range Interpretation Comments Monocytes # (test code 0.4 See_Comment N [Aut omated message] The = Monocytes #) system which generated this result tra nsmitted reference range : <=0.8. The reference r terri was not used to int erpret this result as normal/abnormal . [facility] TylerFchqqboJRZLPDNKVB7743-37-40 22:42:00 Test Item Value Reference Range Interpretation Comments Segs-Bands # (test code = Segs-Bands #) 4.9 1.5-8.1 N [facility] TylerTtwnlqaLDBSSHVFSH6055-44-25 22:42:00 Test Item Value Reference Range Interpretation Comments Eosinophils (test code = 1.0 See_Comment N [A utomated message] The Eosinophils) system which ge nerated this result tra nsmitted reference range : <=4.0. The reference r terri was not used to int erpret this result as normal/abnormal . [facility] TylerWfrtolqXEMKXRDCOW3709-80-68 22:42:00 Test Item Value Reference Range Interpretation Comments Eosinophils # (test code 0.1 See_Comment N [A utomated message] The = Eosinophils #) system whic h generated this result tra nsmitted reference range : <=0.5. The reference r terri was not used to int erpret this result as normal/abnormal . [facility] TylerSopwodhVNEVNBYEHB4097-79-42 22:42:00 Test Item Value Reference Range Interpretation Comments Monocytes (test code = Monocytes) 5.0 2.0-12.0 N [facility] TylerEnvxymqXDTGXYYXUR0195-91-01 22:42:00 Test Item Value Reference Range Interpretation Comments Lymphocytes (test code = Lymphocytes) 31.3 20.0-40.0 N [facility] TylerCgqwohuVMUWDJGUCQ0562-84-47 22:42:00 Test Item Value Reference Range Interpretation Comments Segs (test code = Segs) 62.0 45.0-75.0 N [facility] TylerCkwixxiSPKBNEJSGW6533-59-28 22:42:00 Test Item Value Reference Range Interpretation Comments MPV (test code = MPV) 9.0 7.4-10.4 N [facility] TylerEstkdwtGIRYKLLVOJ8893-04-61 22:42:00 Test Item Value Reference Range Interpretation Comments MCH (test code = MCH) 30.3 pg 27.0-31.0 N [facility] TylerElnxvthCVNXMQPDOO8366-69-42 22:42:00 Test Item Value Reference Range Interpretation Comments MCHC (test code = MCHC) 33.5 32.0-36.0 N [facility] TylerQnfrsuuGDVHNBGLEG0942-22-94 22:42:00 Test Item Value Reference Range Interpretation Comments Platelet (test code = Platelet) 204 133-450 N [facility] TylerOaxdlebVGEEUYPOVN8516-32-39 22:42:00 Test Item Value Reference Range Interpretation Comments RDW (test code = RDW) 12.0 11.5-14.5 N [facility] TylerTipiifwISYEHMAXSR6460-83-66 22:42:00 Test Item Value Reference Range Interpretation Comments RBC (test code = RBC) 4.38 4.70-6.10 L [facility] TylerNuehhzzHTQYLTPBKZ4732-51-45 22:42:00 Test Item Value Reference Range Interpretation Comments WBC (test code = WBC) 8.0 3.7-10.4 N [facility] TylerRclntfaIDZYOOMAXK3453-78-79 22:42:00 Test Item Value Reference Range Interpretation Comments MCV (test code = MCV) 90.5 80.0-94.0 N [facility] TylerOglkmnqSLYPJQHWSA1014-62-19 22:42:00 Test Item Value Reference Range Interpretation Comments Hgb (test code = Hgb) 13.3 14.0-18.0 L [facility] TylerTszwmdfUHYQPXIBSE5650-11-71 22:42:00 Test Item Value Reference Range Interpretation Comments Hct (test code = Hct) 39.7 42.0-54.0 L [facility] CenterFdzyoumRKUPBBOOA4309-15-51 22:42:00 Test Item Value Reference Range Interpretation Comments BUN (test code = BUN) 13 7-22 N [facility] CenterHgqcllrTWSAYUKZW5744-06-88 22:42:00 Test Item Value Reference Range Interpretation Comments Glucose Lvl (test code = Glucose Lvl) 83 70-99 N [facility] CenterBrleinzVUSNVILRK1050-26-52 22:42:00 Test Item Value Reference Range Interpretation Comments Calcium Lvl (test code = Calcium Lvl) 9.3 8.5-10.5 N [facility] CenterWiqttwpZJCRIBCQX2164-19-35 22:42:00 Test Item Value Reference Range Interpretation Comments CO2 (test code = CO2) 31 24-32 N [facility] CenterTpfgdpuNRMCYRRAV6751-34-05 22:42:00 Test Item Value Reference Range Interpretation Comments AGAP (test code = AGAP) 11.0 10.0-20.0 N [facility] CenterJmuexnbXIGKGDNJE0845-00-83 22:42:00 Test Item Value Reference Range Interpretation Comments eGFR (test code = eGFR) 131 [facility] CenterZuafxosPHFECNMGR6695-25-02 22:42:00 Test Item Value Reference Range Interpretation Comments Sodium Lvl (test code = Sodium Lvl) 140 135-145 N [facility] CenterAqfmdbxWIWHHFEYV2658-39-81 22:42:00 Test Item Value Reference Range Interpretation Comments Creatinine Lvl (test code = Creatinine 0.7 0.5-1.4 N Lvl) [facility]CmzlwuqRJKKMCFTI2354-49-34 22:42:00 Test Item Value Reference Range Interpretation Comments Potassium Lvl (test code = Potassium 5.0 3.5-5.1 N Lvl) [facility] CenterPhyzalrTRRJSQUUP5658-34-29 22:42:00 Test Item Value Reference Range Interpretation Comments Chloride Lvl (test code = Chloride Lvl) 103 95-109 N [facility] CenterEcrpnunCADOETHUI3952-56-07 22:42:00 Test Item Value Reference Range Interpretation Comments BUN (test code = BUN) 13 7-22 N [facility] CenterPtmcowzSXWCOBLRP6159-58-41 22:42:00 Test Item Value Reference Range Interpretation Comments Glucose Lvl (test code = Glucose Lvl) 83 70-99 N [facility] CenterSilgfdsAGQEUCQFS5473-60-16 22:42:00 Test Item Value Reference Range Interpretation Comments Calcium Lvl (test code = Calcium Lvl) 9.3 8.5-10.5 N [facility] CenterPlngwdnITKYGAGSL7968-76-23 22:42:00 Test Item Value Reference Range Interpretation Comments CO2 (test code = CO2) 31 24-32 N [facility] CenterOlgzmweBBLJQTLQM9986-56-08 22:42:00 Test Item Value Reference Range Interpretation Comments AGAP (test code = AGAP) 11.0 10.0-20.0 N [facility] CenterUxxspjzUGSASULCK5959-30-56 22:42:00 Test Item Value Reference Range Interpretation Comments eGFR (test code = eGFR) 131 [facility] CenterOhdmgapJHCXDGCFY8775-28-14 22:42:00 Test Item Value Reference Range Interpretation Comments Sodium Lvl (test code = Sodium Lvl) 140 135-145 N [facility] CenterMolltvdEVCJDMGIO3753-73-32 22:42:00 Test Item Value Reference Range Interpretation Comments Creatinine Lvl (test code = Creatinine 0.7 0.5-1.4 N Lvl) [facility] CenterOovzorsZVWMCIGGG3491-57-89 22:42:00 Test Item Value Reference Range Interpretation Comments Potassium Lvl (test code = Potassium 5.0 3.5-5.1 N Lvl) [facility] CenterEtuoyxdQCLFTAGOA8655-66-84 22:42:00 Test Item Value Reference Range Interpretation Comments Chloride Lvl (test code = Chloride Lvl) 103 95-109 N [facility] CenterRubnfdeIJFURJMBS7442-13-35 22:42:00 Test Item Value Reference Range Interpretation Comments Phosphorus (test code = Phosphorus) 4.7 2.5-4.5 H [facility] CenterQoziltwVEKSTMALR2863-88-93 22:42:00 Test Item Value Reference Range Interpretation Comments Magnesium Lvl (test code = Magnesium 1.8 1.8-2.4 N Lvl) [facility]oph[facility]hvQBZJGVHUKN2329-62-52 22:42:00 Test Item Value Reference Range Interpretation Comments Basophils # (test code 0.1 See_Comment N [Aut omated message] The = Basophils #) system which generated this result tra nsmitted reference range : <=0.2. The reference r terri was not used to int erpret this result as normal/abnormal . [facility]neqlYWEOVLJQIL9911-82-06 22:42:00 Test Item Value Reference Range Interpretation Comments Lymphocytes # (test code = Lymphocytes 2.5 1.0-5.5 N #) [facility] TylerAmfrcsgWJBUASUIRY8797-00-74 22:42:00 Test Item Value Reference Range Interpretation Comments Basophils (test code = 0.7 See_Comment N [Aut omated message] The Basophils) system which ge nerated this result tra nsmitted reference range : <=1.0. The reference r terri was not used to int erpret this result as normal/abnormal . [facility] TylerLkanxisYOXOMKVUSD3925-39-73 22:42:00 Test Item Value Reference Range Interpretation Comments Monocytes # (test code 0.4 See_Comment N [Aut omated message] The = Monocytes #) system which generated this result tra nsmitted reference range : <=0.8. The reference r terri was not used to int erpret this result as normal/abnormal . [facility] TylerSsfpichRGKVDRGGES7765-47-60 22:42:00 Test Item Value Reference Range Interpretation Comments Segs-Bands # (test code = Segs-Bands #) 4.9 1.5-8.1 N [facility] TylerUjdjjywEXHUEAKFKW2092-28-37 22:42:00 Test Item Value Reference Range Interpretation Comments Eosinophils (test code = 1.0 See_Comment N [A utomated message] The Eosinophils) system which ge nerated this result tra nsmitted reference range : <=4.0. The reference r terri was not used to int erpret this result as normal/abnormal . [facility] TylerNhejlmhKCLHTAEIGZ8167-93-58 22:42:00 Test Item Value Reference Range Interpretation Comments Eosinophils # (test code 0.1 See_Comment N [A utomated message] The = Eosinophils #) system whic h generated this result tra nsmitted reference range : <=0.5. The reference r terri was not used to int erpret this result as normal/abnormal . [facility] TylerIdjauugDJZLKPIEVT1703-56-60 22:42:00 Test Item Value Reference Range Interpretation Comments Monocytes (test code = Monocytes) 5.0 2.0-12.0 N [facility] TylerFybjcnnAGAHDNPEUT4557-46-64 22:42:00 Test Item Value Reference Range Interpretation Comments Lymphocytes (test code = Lymphocytes) 31.3 20.0-40.0 N [facility] TylerBpheoloBVPHAEWCIF6152-40-02 22:42:00 Test Item Value Reference Range Interpretation Comments Segs (test code = Segs) 62.0 45.0-75.0 N [facility] TylerOaiezccEKLRQTTJUD5737-97-76 22:42:00 Test Item Value Reference Range Interpretation Comments MPV (test code = MPV) 9.0 7.4-10.4 N [facility] TylerCgbgmzmMAYHUQMZRH3239-72-41 22:42:00 Test Item Value Reference Range Interpretation Comments MCH (test code = MCH) 30.3 pg 27.0-31.0 N [facility] TylerOkptvnzMUKRFLULBS9136-02-70 22:42:00 Test Item Value Reference Range Interpretation Comments MCHC (test code = MCHC) 33.5 32.0-36.0 N [facility] TylerCzqforiMHCNMSFCJX8401-80-03 22:42:00 Test Item Value Reference Range Interpretation Comments Platelet (test code = Platelet) 204 133-450 N [facility] TylerIomvqqdORWAUAHIYG9208-47-34 22:42:00 Test Item Value Reference Range Interpretation Comments RDW (test code = RDW) 12.0 11.5-14.5 N [facility] TylerYcehenkJHENHKWNLH6155-63-50 22:42:00 Test Item Value Reference Range Interpretation Comments RBC (test code = RBC) 4.38 4.70-6.10 L [facility] TylerZwerbqnEZTTQQEPOE3811-40-01 22:42:00 Test Item Value Reference Range Interpretation Comments WBC (test code = WBC) 8.0 3.7-10.4 N [facility] TylerKmciylzABBIVFGHZV5308-10-14 22:42:00 Test Item Value Reference Range Interpretation Comments MCV (test code = MCV) 90.5 80.0-94.0 N [facility] TylerBrsbzwfIGMHKBYOYE1253-34-35 22:42:00 Test Item Value Reference Range Interpretation Comments Hgb (test code = Hgb) 13.3 14.0-18.0 L [facility] TylerZylqatrVZWMQRAWQW3409-01-86 22:42:00 Test Item Value Reference Range Interpretation Comments Hct (test code = Hct) 39.7 42.0-54.0 L [facility] CenterIqydlujHLLQXHXKQ2157-04-90 22:42:00 Test Item Value Reference Range Interpretation Comments BUN (test code = BUN) 13 7-22 N [facility] CenterFignepmANMGLYUCF1278-32-83 22:42:00 Test Item Value Reference Range Interpretation Comments Phosphorus (test code = Phosphorus) 4.7 2.5-4.5 H [facility] CenterGuxmgtwDMATLFMFI3391-15-19 22:42:00 Test Item Value Reference Range Interpretation Comments Magnesium Lvl (test code = Magnesium 1.8 1.8-2.4 N Lvl) [facility] TylerCzuaeduYJMUVCQJIP1107-42-85 22:42:00 Test Item Value Reference Range Interpretation Comments Basophils # (test code 0.1 See_Comment N [Aut omated message] The = Basophils #) system which generated this result tra nsmitted reference range : <=0.2. The reference r terri was not used to int erpret this result as normal/abnormal . [facility] TylerXaslurvQFTFUIULAN1216-40-58 22:42:00 Test Item Value Reference Range Interpretation Comments Lymphocytes # (test code = Lymphocytes 2.5 1.0-5.5 N #) [facility] TylerZzapphmFVVXSJEBRW6811-58-13 22:42:00 Test Item Value Reference Range Interpretation Comments Basophils (test code = 0.7 See_Comment N [Aut omated message] The Basophils) system which ge nerated this result tra nsmitted reference range : <=1.0. The reference r terri was not used to int erpret this result as normal/abnormal . [facility] TylerDrjgztyZTUNLRCZHZ0001-65-13 22:42:00 Test Item Value Reference Range Interpretation Comments Monocytes # (test code 0.4 See_Comment N [Aut omated message] The = Monocytes #) system which generated this result tra nsmitted reference range : <=0.8. The reference r terri was not used to int erpret this result as normal/abnormal . [facility] TylerEiqcohmFSWQTKNWTD8016-03-08 22:42:00 Test Item Value Reference Range Interpretation Comments Segs-Bands # (test code = Segs-Bands #) 4.9 1.5-8.1 N [facility] TylerWxvrzoeCILDYLVLZF6879-63-24 22:42:00 Test Item Value Reference Range Interpretation Comments Eosinophils (test code = 1.0 See_Comment N [A utomated message] The Eosinophils) system which ge nerated this result tra nsmitted reference range : <=4.0. The reference r terri was not used to int erpret this result as normal/abnormal . [facility] TylerLucsbxjDSMMYLTSLV7664-91-00 22:42:00 Test Item Value Reference Range Interpretation Comments Eosinophils # (test code 0.1 See_Comment N [A utomated message] The = Eosinophils #) system whic h generated this result tra nsmitted reference range : <=0.5. The reference r terri was not used to int erpret this result as normal/abnormal . [facility] TylerGojaaaaHPJWIHEVBJ4427-17-85 22:42:00 Test Item Value Reference Range Interpretation Comments Monocytes (test code = Monocytes) 5.0 2.0-12.0 N [facility] CenterWzmjudgDXGLICDLG6938-99-47 22:42:00 Test Item Value Reference Range Interpretation Comments Glucose Lvl (test code = Glucose Lvl) 83 70-99 N [facility] TylerXwtbifcAVCMTMHKPI7913-81-54 22:42:00 Test Item Value Reference Range Interpretation Comments Lymphocytes (test code = Lymphocytes) 31.3 20.0-40.0 N [facility] TylerTxjnohvQFVTGEFKSC6206-66-78 22:42:00 Test Item Value Reference Range Interpretation Comments Segs (test code = Segs) 62.0 45.0-75.0 N [facility] TylerZyhpldtTKFMZXNXGG6243-75-58 22:42:00 Test Item Value Reference Range Interpretation Comments MPV (test code = MPV) 9.0 7.4-10.4 N [facility] TylerGmbsgtbSAJEEVYYSJ4585-58-49 22:42:00 Test Item Value Reference Range Interpretation Comments MCH (test code = MCH) 30.3 pg 27.0-31.0 N [facility] TylerVrpltfnIFTEMKMEFW5791-07-26 22:42:00 Test Item Value Reference Range Interpretation Comments MCHC (test code = MCHC) 33.5 32.0-36.0 N [facility] TylerGwosohpPKUXNXZFPP4408-47-84 22:42:00 Test Item Value Reference Range Interpretation Comments Platelet (test code = Platelet) 204 133-450 N [facility] TylerGwmziluSYFPAXFIMY4003-01-94 22:42:00 Test Item Value Reference Range Interpretation Comments RDW (test code = RDW) 12.0 11.5-14.5 N [facility] TylerZvkutrvPGDZIHCMYQ4842-40-84 22:42:00 Test Item Value Reference Range Interpretation Comments RBC (test code = RBC) 4.38 4.70-6.10 L [facility] TylerLyhclvaRYTZUUFZQV0406-84-72 22:42:00 Test Item Value Reference Range Interpretation Comments WBC (test code = WBC) 8.0 3.7-10.4 N [facility] TylerOkvrdbfVGYFSGISGT5475-17-38 22:42:00 Test Item Value Reference Range Interpretation Comments MCV (test code = MCV) 90.5 80.0-94.0 N [facility] CenterVlwyigeEASZNXWIQ9141-19-00 22:42:00 Test Item Value Reference Range Interpretation Comments Calcium Lvl (test code = Calcium Lvl) 9.3 8.5-10.5 N [facility] TylerPxxsiomFQQBSSXFIO2594-06-71 22:42:00 Test Item Value Reference Range Interpretation Comments Hgb (test code = Hgb) 13.3 14.0-18.0 L [facility] TylerJonqhdvQSRWSFVSMR0038-27-33 22:42:00 Test Item Value Reference Range Interpretation Comments Hct (test code = Hct) 39.7 42.0-54.0 L [facility] CenterZszbzntZAALNDKZG7680-14-93 22:42:00 Test Item Value Reference Range Interpretation Comments BUN (test code = BUN) 13 7-22 N [facility] CenterYjfcupxMAGNQXLBA6766-44-68 22:42:00 Test Item Value Reference Range Interpretation Comments CO2 (test code = CO2) 31 24-32 N [facility] CenterOnsxbtvMKGMZHPBR5950-66-48 22:42:00 Test Item Value Reference Range Interpretation Comments Glucose Lvl (test code = Glucose Lvl) 83 70-99 N [facility] CenterYcufiabJRRKNHPGR2301-71-02 22:42:00 Test Item Value Reference Range Interpretation Comments Calcium Lvl (test code = Calcium Lvl) 9.3 8.5-10.5 N [facility] CenterIufnwxrOQQVKPPFI4434-21-35 22:42:00 Test Item Value Reference Range Interpretation Comments CO2 (test code = CO2) 31 24-32 N [facility] CenterWvsnimtFMGHSFTUG5279-92-91 22:42:00 Test Item Value Reference Range Interpretation Comments AGAP (test code = AGAP) 11.0 10.0-20.0 N [facility] CenterRgseftgWKKOFEAGR0461-30-69 22:42:00 Test Item Value Reference Range Interpretation Comments eGFR (test code = eGFR) 131 [facility] CenterKopgzhsZYEAMDBIN9216-97-90 22:42:00 Test Item Value Reference Range Interpretation Comments Sodium Lvl (test code = Sodium Lvl) 140 135-145 N [facility] CenterUwaojvjWJLATBWDZ3429-73-67 22:42:00 Test Item Value Reference Range Interpretation Comments Creatinine Lvl (test code = Creatinine 0.7 0.5-1.4 N Lvl) [facility] CenterCvcrkpxORSTEPBFO7590-94-15 22:42:00 Test Item Value Reference Range Interpretation Comments Potassium Lvl (test code = Potassium 5.0 3.5-5.1 N Lvl) [facility] CenterCvhzthkNDNNWUCLZ4363-55-71 22:42:00 Test Item Value Reference Range Interpretation Comments Chloride Lvl (test code = Chloride Lvl) 103 95-109 N [facility] CenterTirboqsZETUBZCRN4584-99-09 22:42:00 Test Item Value Reference Range Interpretation Comments Phosphorus (test code = Phosphorus) 4.7 2.5-4.5 H [facility] CenterXznjcbrQBYZZKBUM5091-12-17 22:42:00 Test Item Value Reference Range Interpretation Comments AGAP (test code = AGAP) 11.0 10.0-20.0 N [facility] CenterTjillbeRCVQUEZSD7690-21-38 22:42:00 Test Item Value Reference Range Interpretation Comments Magnesium Lvl (test code = Magnesium 1.8 1.8-2.4 N Lvl) [facility]EbpnoixAQQMFGBHGR5980-55-34 22:42:00 Test Item Value Reference Range Interpretation Comments Basophils # (test code 0.1 See_Comment N [Aut omated message] The = Basophils #) system which generated this result tra nsmitted reference range : <=0.2. The reference r terri was not used to int erpret this result as normal/abnormal . [facility] TylerUanhstrXEUMPJUFFV9786-76-11 22:42:00 Test Item Value Reference Range Interpretation Comments Lymphocytes # (test code = Lymphocytes 2.5 1.0-5.5 N #) [facility] TylerMsvqdthMZPMVXCZOS9833-61-83 22:42:00 Test Item Value Reference Range Interpretation Comments Basophils (test code = 0.7 See_Comment N [Aut omated message] The Basophils) system which ge nerated this result tra nsmitted reference range : <=1.0. The reference r terri was not used to int erpret this result as normal/abnormal . [facility] TylerTlvlicvSSWPPXYXGT9519-94-38 22:42:00 Test Item Value Reference Range Interpretation Comments Monocytes # (test code 0.4 See_Comment N [Aut omated message] The = Monocytes #) system which generated this result tra nsmitted reference range : <=0.8. The reference r terri was not used to int erpret this result as normal/abnormal . [facility] TylerIpjnuvkBBGTSHRMJH1492-43-35 22:42:00 Test Item Value Reference Range Interpretation Comments Segs-Bands # (test code = Segs-Bands #) 4.9 1.5-8.1 N [facility] TylerObocahqVURUMMWESU3664-21-95 22:42:00 Test Item Value Reference Range Interpretation Comments Eosinophils (test code = 1.0 See_Comment N [A utomated message] The Eosinophils) system which ge nerated this result tra nsmitted reference range : <=4.0. The reference r terri was not used to int erpret this result as normal/abnormal . [facility] TylerTvcrjczSWUWYJFLXT2745-66-72 22:42:00 Test Item Value Reference Range Interpretation Comments Eosinophils # (test code 0.1 See_Comment N [A utomated message] The = Eosinophils #) system whic h generated this result tra nsmitted reference range : <=0.5. The reference r terri was not used to int erpret this result as normal/abnormal . [facility] TylerAsdhawhSDRIZKPGBC8746-52-46 22:42:00 Test Item Value Reference Range Interpretation Comments Monocytes (test code = Monocytes) 5.0 2.0-12.0 N [facility] TylerTvlbjacGVPAGQIFZP2797-63-15 22:42:00 Test Item Value Reference Range Interpretation Comments Lymphocytes (test code = Lymphocytes) 31.3 20.0-40.0 N [facility]rtbwyaNAOOELJWZ4780-50-61 22:42:00 Test Item Value Reference Range Interpretation Comments eGFR (test code = eGFR) 131 [facility] GLUCOSE [id number] 21:59:00 Test Item Value Reference Range Interpretation Comments Gluc POC Lifscn (test code = Gluc POC 86 70-99 N Lif[facility]n) [facility] GLUCOSE WLJGYMV3244-48-95 21:59:00 Test Item Value Reference Range Interpretation Comments Gluc POC Lifscn (test code = Gluc POC 86 70-99 N [facility]) [facility] GLUCOSE [id number] 21:59:00 Test Item Value Reference Range Interpretation Comments Gluc POC Lif[facility]n (test code = Gluc POC 86 70-99 N [facility]) [facility] GLUCOSE AVVUIDP2386-77-01 21:59:00 Test Item Value Reference Range Interpretation Comments Gluc POC Lifscn (test code = Gluc POC 86 70-99 N [facility]) [facility] GLUCOSE MYYIXFE3515-72-76 21:59:00 Test Item Value Reference Range Interpretation Comments Gluc POC Lifscn (test code = Gluc POC 86 70-99 N [facility]) [facility] GLUCOSE [id number] 21:59:00 Test Item Value Reference Range Interpretation Comments Gluc POC Lifscn (test code = Gluc POC 86 70-99 N [facility]) [facility] GLUCOSE BJGCJLM1372-10-52 21:59:00 Test Item Value Reference Range Interpretation Comments Gluc POC Lifscn (test code = Gluc POC 86 70-99 N [facility]) [facility] GLUCOSE CEYWWLY7623-75-09 21:59:00 Test Item Value Reference Range Interpretation Comments Gluc POC Lifscn (test code = Gluc POC 86 70-99 N [facility]) [facility] GLUCOSE [id number] 21:59:00 Test Item Value Reference Range Interpretation Comments Gluc POC Lifscn (test code = Gluc POC 86 70-99 N [facility]) [facility]
[2023-03-20 12:58] LABS: Absolute Lymphocytes (CBC) 2.3 K/uL (0.7-4.9); Hematocrit 42.7 % (39.6-49.0); Lymphocytes % 37.7 % (15.3-44.8); MPV 7.8 fL (7.6-11.3); RBC Red Blood Cell Count 5.08 M/uL (4.33-5.43)
[2023-03-20] MEDS ORDERED: NA CHLORIDE 0.9% 1,000 ML ONE (13:01)
[2023-03-20] MEDS ORDERED: LEVETIRACETAM 500 MG/5 ML VIAL IV ONE (13:01)
[2023-03-20 13:17] LABS: Magnesium 2.1 mg/dL (1.6-2.4); Potassium 3.2 mEq/L (3.5-5.1); Troponin High Sensitivity 15.4 pg/mL (<58.9)
[2023-03-20] MEDS ORDERED: POTASSIUM CL SA 10 MEQ TAB PO ONE (13:52)
--- NOTE | 2023-03-20 13:52 | ER ---
Nurse's Notes [facility] Name: Shan Faye Age: 37 yrs Sex: Male : 1985 Arrival Date: 03/20/2023 Time: 12:24 Bed 20 Private MD: Diagnosis: Epileptic seizures related to external causes Presentation: 03/20 12:39 Chief complaint: Patient states: "I've had a heat stroke. 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 Pt reports feeling tired, and had been having seizures. HX of seizures and reportedly has not been taking his prescribed Keppra. Coronavirus screen: Client denies travel out of the [place] in the last 14 days. Ebola Screen: Patient denies exposure to infectious person. Patient denies travel to an Ebola-affected area in the 21 days before illness onset. Initial Sepsis Screen: Does the patient meet any 2 criteria? No. Patient's initial sepsis screen is negative. Does the patient have a suspected source of infection? No. Patient's initial sepsis screen is negative. Risk Assessment: Do you want to hurt yourself or someone else? Patient reports no desire to harm self or others. Onset of symptoms is unknown. 12:39 Method Of Arrival: Ambulatory ss 12:39 Acuity: PAULINE 3 ss Triage Assessment: 14:19 General: Behavior is calm, cooperative, appropriate for age. sg5 Historical: - Allergies: 12:41 No Known Allergies; ss - Home Meds: 12:41 Keppra 750 mg Oral tab 2 tabs 2 times per day [Active]; ss - PMHx: 12:41 brain disorder; CVA; Seizure; ss - PSHx: 12:41 Cholecystectomy; ss - Immunization history:: Client reports receiving the 2nd dose of the Covid vaccine. - Social history:: Smoking status: Patient denies any tobacco usage or history of. Screenin:50 [facility] ED Fall Risk Assessment (Adult) History of falling in the last 3 months, sg5 including since admission. [facility] ED Fall Risk Assessment (Adult) History of falling in the last 3 months, including since admission No falls in past 3 months (0 pts). Abuse screen: Denies threats or abuse. Nutritional screening: No deficits noted. Tuberculosis screening: No symptoms or risk factors identified. Assessment: 12:50 General: Appears in no apparent distress. comfortable. Pain: Denies pain. Neuro: Level sg5 of Consciousness is awake, alert, obeys commands, Oriented to person, place, time, situation, Appropriate for age. Neuro: Reports fatigue. Cardiovascular: Capillary refill < 3 seconds Patient's skin is warm and dry. Respiratory: Airway is patent Respiratory effort is even, unlabored. GI: Abdomen is round non-distended. : No signs and/or symptoms were reported regarding the genitourinary system. EENT: No signs and/or symptoms were reported regarding the EENT system. Derm: No signs and/or symptoms reported regarding the dermatologic system. Musculoskeletal: No signs and/or symptoms reported regarding the musculoskeletal system. Vital Signs: 12:39 BP 135 / 91; Pulse 63; Resp 16; Temp 98.4(TE); Pulse Ox 95% on R/A; Weight 90.72 kg; ss Height 5 ft. 5 in. ; Pain 8/10; 13:01 BP 131 / 96; Pulse 59; Resp 18; Pulse Ox 97% on R/A; Pain 0/10; sg5 13:50 BP 135 / 92; Pulse 63; Resp 16; Pulse Ox 99% on R/A; sg5 12:39 Body Mass Index 33.28 (90.72 kg, 165.1 cm) ss 12:39 Pain Scale: Adult ss 13:01 Pain Scale: Adult sg5 ED Course: 12:26 Patient arrived in ED. ts1 12:27 Britt Ambrocio FNP-C [facility]. kb 12:27 Jose Eduardo Momin MD is Attending Physician. kb 12:40 Triage completed. ss 12:41 Arm band placed on right wrist. ss 12:43 Dai Dumas, PILLO is Primary Nurse. sg5 12:50 Patient has correct armband on for positive identification. Placed in gown. Bed in low sg5 position. Call light in reach. Side rails up X2. Valuables Left with patient. 12:50 Inserted saline lock: 20 gauge in right antecubital area, using aseptic technique. sg5 Blood collected. 12:58 EKG done, by ED staff, reviewed by Britt BEST. zm 14:19 IV discontinued. sg5 14:19 No provider procedures requiring assistance completed. sg5 Administered Medications: 13:01 Drug: Keppra IV 1000 mg Route: IV; Rate: calculated rate; Site: right antecubital; sg5 13:01 Drug: NS 0.9% IV 1000 ml Route: IV; Rate: 1000 ml; Site: right antecubital; sg5 14:14 Follow up: IV Status: Completed infusion; IV Intake: 1000ml sg5 13:45 Drug: Potassium Chloride PO 40 mEq Route: PO; sg5 Medication: 14:19 VIS not applicable for this client. sg5 Intake: 14:14 IV: 1000ml; Total: 1000ml. sg5 Outcome: 13:51 Discharge ordered by MD. wagner 14:19 Discharged to home ambulatory. sg5 14:19 Condition: good 14:19 Discharge instructions given to patient, Instructed on discharge instructions, follow up and referral plans. 14:19 Patient left the ED. sg5 Signatures: Britt Ambrocio, BANKRUPTCY LAW SPECIALIST-C BANKRUPTCY LAW SPECIALIST-Ckb Shayna Paul RN RN ss Martinez, Zaina zm Galvan, Stephanie, RN RN sg5 Annika Paige PAS PAS ts1
--- NOTE | 2023-03-20 13:52 | EDPHYS ---
Physician Documentation [facility] Name: Shan Faye Age: 37 yrs Sex: Male : 1985 Arrival Date: 03/20/2023 Time: 12:24 Bed 20 Private MD: ED Physician Jose Eduardo Momin HPI: 03/20 13:03 This 37 yrs old Male presents to ER via Ambulatory with complaints of Heat kb Exposure. 13:03 The patient presents after having a single isolated seizure. Character of seizure(s): kb Loss of consciousness: the patient experienced loss of consciousness, Motor activity: generalized. Seizure onset: yesterday. Context: Contributing factors: missed recent doses of medications, "overheated". Seizure Hx: Original onset: longstanding, Seizure medications: Keppra. Associated injury: The patient did not suffer any apparent associated injury. Current symptoms: fatigue. The patient has experienced similar episodes in the past. The patient has not recently seen a physician. Pt reports he had a seizure after walking from his apt to the [employer] yesterday. States he has been "exhausted" today. States he looked up his symptoms and saw that they could be due to a heat stroke so he came in to get checked out. States his mom hasn't been giving him his keppra for seizures so he hasn't been taking it.. Historical: - Allergies: 12:41 No Known Allergies; ss - Home Meds: 12:41 Keppra 750 mg Oral tab 2 tabs 2 times per day [Active]; ss - PMHx: 12:41 brain disorder; CVA; Seizure; ss - PSHx: 12:41 Cholecystectomy; ss - Immunization history:: Client reports receiving the 2nd dose of the Covid vaccine. - Social history:: Smoking status: Patient denies any tobacco usage or history of. ROS: 13:01 Constitutional: Negative for fever, chills, and weight loss. kb 13:01 Constitutional: Positive for fatigue. 13:01 Neuro: Positive for seizure activity. 13:01 All other systems are negative. Exam: 13:01 Constitutional: This is a well developed, well nourished patient who is awake, alert, kb and in no acute distress. Head/Face: Normocephalic, atraumatic. ENT: Moist Mucous membranes Cardiovascular: Regular rate and rhythm with a normal S1 and S2. No gallops, murmurs, or rubs. No pulse deficits. Respiratory: Respirations even and unlabored. No increased work of breathing. Talking in full sentences Abdomen/GI: Soft, non-tender. No distention Skin: Warm, dry with normal turgor. Normal color. MS/ Extremity: Pulses equal, no cyanosis. Neurovascular intact. Full, normal range of motion. Neuro: Awake and alert, GCS 15, oriented to person, place, time, and situation. Moves all extremities. Normal gait. 13:01 ECG was reviewed by the Attending Physician. Vital Signs: 12:39 BP 135 / 91; Pulse 63; Resp 16; Temp 98.4(TE); Pulse Ox 95% on R/A; Weight 90.72 kg; ss Height 5 ft. 5 in. ; Pain 8/10; 13:01 BP 131 / 96; Pulse 59; Resp 18; Pulse Ox 97% on R/A; Pain 0/10; sg5 13:50 BP 135 / 92; Pulse 63; Resp 16; Pulse Ox 99% on R/A; sg5 12:39 Body Mass Index 33.28 (90.72 kg, 165.1 cm) ss 12:39 Pain Scale: Adult ss 13:01 Pain Scale: Adult sg5 MDM: 12:29 Patient medically screened. kb 13:01 Differential diagnosis: cardiac arrhythmia, seizure, heat exhaustion. Data reviewed: vital signs, nurses notes. 13:49 Counseling: I had a detailed discussion with the patient and/or guardian regarding: the kb historical points, exam findings, and any diagnostic results supporting the discharge/admit diagnosis, lab results, the need for outpatient follow up, a family practitioner, to return to the emergency department if symptoms worsen or persist or if there are any questions or concerns that arise at home. 03/20 12:35 Order name: Basic Metabolic Panel; Complete Time: 13:36 kb 03/20 12:35 Order name: CBC with Diff; Complete Time: 13:36 kb 03/20 12:35 Order name: Magnesium; Complete Time: 13:36 kb 03/20 12:35 Order name: Troponin HS; Complete Time: 13:36 kb 03/20 12:35 Order name: CPK; Complete Time: 13:36 kb 03/20 12:35 Order name: EKG; Complete Time: 12:36 kb 03/20 12:35 Order name: Cardiac monitoring; Complete Time: 12:57 kb 03/20 12:35 Order name: EKG - Nurse/Tech; Complete Time: 12:57 kb 03/20 12:35 Order name: IV Saline Lock; Complete Time: 12:50 kb 03/20 12:35 Order name: Labs collected and sent; Complete Time: 12:50 kb 03/20 12:35 Order name: O2 Per Protocol; Complete Time: 12:57 kb 03/20 12:35 Order name: O2 Sat Monitoring; Complete Time: 12:57 kb EC:01 Rate is 59 beats/min. Rhythm is regular. QRS [place] is Normal. [place] interval is normal at kb 164 msec. QRS interval is normal at 96 msec. QT interval is normal at 423 msec. Administered Medications: 13:01 Drug: Keppra IV 1000 mg Route: IV; Rate: calculated rate; Site: right antecubital; sg5 13:01 Drug: NS 0.9% IV 1000 ml Route: IV; Rate: 1000 ml; Site: right antecubital; sg5 14:14 Follow up: IV Status: Completed infusion; IV Intake: 1000ml sg5 13:45 Drug: Potassium Chloride PO 40 mEq Route: PO; sg5 Disposition: 14:24 Co-signature as Attending Physician, Jose Eduardo Momin MD I reviewed the patient's care rn provided by the Advanced Practice Provider and agree with the diagnosis and treatment plan. Disposition Summary: 03/20/23 13:51 Discharge Ordered Location: Home kb Condition: Stable kb Diagnosis - Epileptic seizures related to external causes kb Followup: kb - With: Emergency Department - When: As needed - Reason: Worsening of condition Followup: kb - With: Private Physician - When: 2 - 3 days - Reason: Recheck today's complaints, Continuance of care, Re-evaluation by your physician Discharge Instructions: - Discharge Summary Sheet kb - Seizure, Adult, [id number] kb Forms: - Medication Reconciliation Form kb - Thank You Letter kb - Antibiotic Education kb - Prescription Opioid Use kb - Work release form sg5 Signatures: Dispatcher [employer] Britt Davenport, [employer] WORKER-C NATI-Ckb Momin, Jose Eduardo, MD MD rn Paul, Shayna, RN RN ss Dumas, Dai, RN RN sg5
[2023-03-20 14:28] VITALS: TEMP 98.4
[2023-03-20 14:30] VITALS: BP 135/92; O2SAT 99
--- NOTE | 2023-03-22 17:54 | EKG ---
Test Date: 2023-03-20 Test Time: 12:55:28 [facility]: JER MEASUREMENT RESULTS: Intervals: Rate: 59 GA: 164 QRSD: 96 QT: 428 QTc: 423 [place]: P: 27 GA: 164 QRS: 15 T: 19 INTERPRETIVE STATEMENTS: Sinus bradycardia Otherwise normal ECG Compared to ECG 02/07/2023 16:57:04 Sinus rhythm no longer present Electronically Signed On 03-22-23 17:50:23 CDT by Medhat Fernandes
== END 2023-03-20 14:19 | disposition home or self-care (01) ==
LOC: ER 12:24
DX: G40.509 Epileptic seizures related to external causes, not intractable, without status epilepticus (principal); R53.83 Other fatigue
CPT/HCPCS: 96361; 93005; 85025; 80048; 36415; 83735; 82550; 84484; 96374; 99284; J1953; J7030

== ENCOUNTER 2023-04-21 20:29 | Inpatient (IN) | payer OTHER ==
--- OUTSIDE RECORDS SUMMARY | 2023-04-21 20:35 | XMS REPORT | Continuity of Care Document ---
:1985 Author Organization [facility] t Address [address] [place] [address] Care Team Providers Name Role Phone Jethro Allen Attending Clinician Unavailable Payers Payer Name Policy Type Policy Number Effective Date Expiration Date Elver yanes [place] [id number] 2015 Common [employer] 00:00:00 [facility] Problems Condition Condition Condition Status Onset Resolution Last Treating Co mments Source Name Details Category Date Date Treatment Clinician Date SEIZURES SEIZURES Diagnosis Active 2011-102012-08-20 Memoria Active 10-20 17:32:00 l 08/20/2012 00:00: Jake denise [address] [id number] Type 2 Problem Active Common diabetes Spirit mellitus - [facility] [id number] IRENE Problem Active Common (generaliz Spirit ed anxiety - [facility] disorder) [facility] [id number] Current Problem Active Common moderate Spirit episode of - [facility] major [facility] prior episode [id number] Bipolar Problem Active Commo n affective Spirit disorder, - [facility] currently 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 Social History Social Habit Start Date Stop Date Quantity Comments Source History of Tobacco Use Co mmon [facility] - [facility] Sex Assigned At Com mon [facility] Smoking Status Start Date Stop Date Source Never Smoker Common [facility] Medications Ordered Filled Start Stop Current Ordering Indication Dosage Frequency Signature Comments Components Source Medication Medication Date Date Medication? Clinician (SIG) Name Name Formerly [facility]2011-10 Yes Tatyana 750 mg, 3 Mem [...] Chambers mL, Route: l Chloride 03:49: IVPB, [place] 0.9% IV 50 00 ONCE, mL Start date: 08/20/12 21:49:00, Stop date: 08/20/12 21:49:00 Depacon + 2011-10 No Terri A 500 mg, 5 Memoria Sodium 1-18 Chambers mL, Route: l Chloride 03:49: IVPB, [place] 0.9% IV 50 00 ONCE, mL Start [...] Chambers mL, Route: l Chloride 03:49: IVPB, [place] 0.9% IV 50 00 ONCE, mL Start [...] Chambers mL, Route: l Chloride 03:49: IVPB, [place] 0.9% IV 50 00 ONCE, mL Start date: 08/20/12 21:49:00, Stop date: 08/20/12 21:49:00 Depacon + 2011-10 No Terri A 500 mg, 5 Memoria Sodium 1-18 Chambers mL, Route: l Chloride 03:49: IVPB, [place] 0.9% IV 50 00 ONCE, mL Start [...] Chambers mL, Route: l Chloride 03:49: IVPB, [place] 0.9% IV 50 00 ONCE, mL Start [...] Route: IV, l 03:17: Jose David ONCE, [place] Dosing Weight 72.727, kg, Start date: 08/20/12 21:17:00, Stop date: 08/20/12 21:17:00 Depakote 2011-10 No Tatyana 500 mg, Memor ia 1-18 Jessica Route: IV, l 03:17: Jose David ONCE, [place] Dosing Weight 72.727, kg, Start date: 08/20/12 21:17:00, Stop date: 08/20/12 21:17:00 Depakote 2011-10 No Tatyana 500 mg, Memor ia 1-18 Jessica Route: IV, l 03:17: Jose David ONCE, [place] Dosing Weight 72.727, kg, Start date: 08/20/12 21:17:00, Stop date: 08/20/12 21:17:00 Depakote 2011-10 No Tatyana 500 mg, Memor ia 1-18 Jessica Route: IV, l 03:17: Jose David ONCE, [place] Dosing Weight 72.727, kg, Start date: 08/20/12 21:17:00, Stop date: 08/20/12 21:17:00 Depakote 2011- No Tatyana 500 mg, Memor ia 10-21 Jessica Route: IV, l 03:17: Jose David ONCE, [place] Dosing Weight 72.727, kg, Start date: 08/20/12 21:17:00, Stop date: 08/20/12 21:17:00 Depakote ER 2011- Yes 500 mg, 1 M emoria 500 mg oral 1-17 tab, PO, l tablet, 22:02: BID, 30 [place] extended 13 tab, release Substituti on Allowed, ERTAB Depakote ER 2011-10 Yes 500 mg, 1 M emoria 500 mg oral 1-17 tab, PO, l tablet, 22:02: BID, 30 [place] extended 13 tab, release Substituti on Allowed, ERTAB Depakote ER 2011-10 Yes 500 mg, 1 M emoria 500 mg oral 1-17 tab, PO, l tablet, 22:02: BID, 30 [place] extended 13 tab, release Substituti on Allowed, ERTAB Depakote ER 2011-10 Yes 500 mg, 1 M emoria 500 mg oral 1-17 tab, PO, l tablet, 22:02: BID, 30 [place] extended 13 tab, release Substituti on Allowed, [...] tab, PO, l tablet, 22:02: BID, 30 [place] extended 13 tab, release Substituti on Allowed, [...] BID Fycompa 10 Common MG MG MG [facility] BusPIRone BusPIRone No 1{table TID BusPIRone Common HCl 5 MG HCl 5 MG t} HCl 5 MG Spi rit [facility] Lantus 100 Lantus 100 No BID Lantus 100 Common UNIT/ML UNIT/ML UNIT/ML [facility] Citalopram Citalopram No 1{table QD Citalopram Common Hydrobromid Hydrobromid t} Hydrobromi Spirit e 20 MG e 20 MG de 20 MG [facility] Latuda 20 Latuda 20 No 1{table QD Latuda 20 Common MG MG t} MG [facility] Keppra Keppra No Keppra Common [facility] Fycompa 10 Fycompa 10 No BID Fycompa 10 MG MG MG Lantus 100 Lantus 100 No BID Lantus 100 UNIT/ML UNIT/ML UNIT/ML Eliquis 5 Eliquis 5 No 1{table BID Eliquis 5 MG MG t} MG Vital Signs Vital Name Observation Time Observation Value Comments Source height 2020-10-15 10:20:00 65 [in_i] Common [facility] weight 2020-10-15 10:20:00 180 [lb_av] Common [facility] temperature 2020-10-15 10:20:00 98.7 [degF] Common [facility] bmi 2020-10-15 10:20:00 29.95 kg/m2 Common S pirit [facility] blood pressure 2020-10-15 10:20:00 131 mm[Hg] Common Spirit - systolic [facility] blood pressure 2020-10-15 10:20:00 74 mm[Hg] Common Spirit - diastolic [facility] Weight 2012-08-20 21:07:00 [facility] Height 2012-08-20 21:07:00 165.10 cm [facility] Procedures This patient has no known procedures. Encounters Start End Encounter Admission Attending Care Care Encounter Source Date/Time Date/Time Type Type Clinicians Facility Department ID 2023-03-02 Outpatient CBRIDGE CBRIDGE [id number] [facility] 09:57:18 [id number] [id number] 2022-12-04 [facility] [id number] Common 11:14:01 [facility] [id number] [facility] 2022-07-02 Outpatient [facility] [id number] [place] 04:48:12 [id number] [facility] 2021-10-29 Outpatient Allen, [facility] [id number] Common 12:21:25 [facility] [id number] [facility] 2021-10-29 Outpatient Allen, STLMLC ST[facility] [id number] Common 12:19:51 [facility] [id number] [facility] 2021-10-29 Outpatient Allen, STLMLC [facility] [id number] Common 12:16:00 [facility] [id number] [facility] 2020-10-15 2020-10-15 OFFICE [facility] [id number] Co mmon 00:00:00 00:00:00 VISIT NEW Spir it PT LEVEL 3 - [facility] 2020-09-25 2020-09-25 (TEL) STLMLC STLC [id number] Co mmon 00:00:00 00:00:00 [facility] 2012-08-20 2012-08-20 Emergency nullFlavo [facility] [id number] Memoria 15:06:00 23:52:00 r Medical 00 l [facility] 2012-08-20 2012-08-20 Emergency nullFlavo [facility] [id number] Memoria 15:06:00 23:52:00 r Medical 00 l [facility] Results Test Description Test Time Test Comments Results Result Comments Source CHEMISTRY 2012-08-20 22:46:00 Test Item Value Reference Range Interpretation Comme nts Valproic Acid Lvl (test code = Valproic Acid Lvl) 128 50-1 00 [facility]K7514[facility]68-98 22:46:00 Test Item Value Reference Range Interpretation Comments Valproic Acid Lvl (test code = Valproic 128 50-100 H Acid Lvl) [facility] BrookAqifwulNZSXSVWNU1623-20-59 22:46:00 Test Item Value Reference Range Interpretation Comments Valproic Acid Lvl (test code = Valproic 128 50-100 H Acid Lvl) [facility] BrookBcdppmeBHLMTGQTS8584-97-84 22:46:00 Test Item Value Reference Range Interpretation Comments Valproic Acid Lvl (test code = Valproic 128 50-100 H Acid Lvl) [facility] BrookOajwsxmNRDDKFFXV3938-84-58 22:46:00 Test Item Value Reference Range Interpretation Comments Valproic Acid Lvl (test code = Valproic 128 50-100 H Acid Lvl) [facility] BrookLoxbcwzKYYBTLEKY7232-18-86 22:46:00 Test Item Value Reference Range Interpretation Comments Valproic Acid Lvl (test code = Valproic 128 50-100 H Acid Lvl) [facility] BrookPlxnvvlVQCTAHOXH4420-05-91 22:46:00 Test Item Value Reference Range Interpretation Comments Valproic Acid Lvl (test code = Valproic 128 50-100 H Acid Lvl) [facility] BrookPtbtazoEFTJUAOYE7864-18-30 22:46:00 Test Item Value Reference Range Interpretation Comments Valproic Acid Lvl (test code = Valproic 128 50-100 H Acid Lvl) [facility] BrookFoknlxuJIEDFMPMV9581-03-44 22:46:00 Test Item Value Reference Range Interpretation Comments Valproic Acid Lvl (test code = Valproic 128 50-100 H Acid Lvl) [facility] BrookSyagizhYTXEWOXOU8706-58-28 22:46:00 Test Item Value Reference Range Interpretation Comments Valproic Acid Lvl (test code = Valproic 128 50-100 H Acid Lvl) [facility]gdq[facility]wmWTQMYYEFEX4819-37-62 22:42:00 Test Item Value Reference Range Interpretation Comments Segs (test code = Segs) 62.0 45.0-75.0 N [facility] HospitalRiyropzUWYPUSALDG2739-83-63 22:42:00 Test Item Value Reference Range Interpretation Comments MPV (test code = MPV) 9.0 7.4-10.4 N [facility] HospitalPvhxxfuQHYKDSRWKH6071-31-87 22:42:00 Test Item Value Reference Range Interpretation Comments MCH (test code = MCH) 30.3 pg 27.0-31.0 N [facility] HospitalVusgclkVEIOXLJAAZ9439-08-64 22:42:00 Test Item Value Reference Range Interpretation Comments MCHC (test code = MCHC) 33.5 32.0-36.0 N [facility] HospitalEwphwcgHGTWKFUEZO9045-29-58 22:42:00 Test Item Value Reference Range Interpretation Comments Platelet (test code = Platelet) 204 133-450 N [facility] HospitalTgnqowjKMLVNXTXVS5612-22-64 22:42:00 Test Item Value Reference Range Interpretation Comments RDW (test code = RDW) 12.0 11.5-14.5 N [facility] HospitalIdxcyfhFXZNUGQWAL6430-51-31 22:42:00 Test Item Value Reference Range Interpretation Comments RBC (test code = RBC) 4.38 4.70-6.10 L [facility] HospitalKjmdgrjOUHQWRKLNA2313-53-56 22:42:00 Test Item Value Reference Range Interpretation Comments WBC (test code = WBC) 8.0 3.7-10.4 N [facility] HospitalJdbbiraOSSVWCYGNP8427-84-44 22:42:00 Test Item Value Reference Range Interpretation Comments MCV (test code = MCV) 90.5 80.0-94.0 N [facility] HospitalIpjsipvPLCQTKAGUL1665-35-99 22:42:00 Test Item Value Reference Range Interpretation Comments Hgb (test code = Hgb) 13.3 14.0-18.0 L [facility] BrookXzgkamlCSLBUZOIV8135-14-95 22:42:00 Test Item Value Reference Range Interpretation Comments Sodium Lvl (test code = Sodium Lvl) 140 135-145 N [facility] HospitalVpoltrcUIBHVAAXRE9242-24-86 22:42:00 Test Item Value Reference Range Interpretation Comments Hct (test code = Hct) 39.7 42.0-54.0 L [facility] BrookUiezwqiJINDRQULT4203-40-70 22:42:00 Test Item Value Reference Range Interpretation Comments BUN (test code = BUN) 13 7-22 N [facility] BrookFybezotPSCEENMAJ4164-28-68 22:42:00 Test Item Value Reference Range Interpretation Comments Glucose Lvl (test code = Glucose Lvl) 83 70-99 N [facility] BrookQomsxalBRNUCEWHS0451-61-56 22:42:00 Test Item Value Reference Range Interpretation Comments Creatinine Lvl (test code = Creatinine 0.7 0.5-1.4 N Lvl) [facility] BrookCmzqvzpPZSZSKPML8777-70-15 22:42:00 Test Item Value Reference Range Interpretation Comments Calcium Lvl (test code = Calcium Lvl) 9.3 8.5-10.5 N [facility] BrookAbbuchmAUDVCJYMX8667-30-79 22:42:00 Test Item Value Reference Range Interpretation Comments CO2 (test code = CO2) 31 24-32 N [facility] BrookOrvoszvQAFPMFGZX8227-37-00 22:42:00 Test Item Value Reference Range Interpretation Comments AGAP (test code = AGAP) 11.0 10.0-20.0 N [facility] BrookUzawjvwWXDARTHMS0466-22-53 22:42:00 Test Item Value Reference Range Interpretation Comments eGFR (test code = eGFR) 131 [facility] BrookHvbbpciJZASDLNFP8814-77-30 22:42:00 Test Item Value Reference Range Interpretation Comments Sodium Lvl (test code = Sodium Lvl) 140 135-145 N [facility] BrookIsvbigfVMAPSLZVH1057-42-23 22:42:00 Test Item Value Reference Range Interpretation Comments Creatinine Lvl (test code = Creatinine 0.7 0.5-1.4 N Lvl) [facility] BrookYedfsvsXZMLWGZPH9716-53-03 22:42:00 Test Item Value Reference Range Interpretation Comments Potassium Lvl (test code = Potassium 5.0 3.5-5.1 N Lvl) [facility] BrookHoxihdmPCIOTWQAY6934-21-38 22:42:00 Test Item Value Reference Range Interpretation Comments Chloride Lvl (test code = Chloride Lvl) 103 95-109 N [facility] BrookSzzetftOEWZFIUKV8543-17-17 22:42:00 Test Item Value Reference Range Interpretation Comments Phosphorus (test code = Phosphorus) 4.7 2.5-4.5 H [facility] BrookVxuygcpBMQYSXUPA6120-67-26 22:42:00 Test Item Value Reference Range Interpretation Comments Magnesium Lvl (test code = Magnesium 1.8 1.8-2.4 N Lvl) [facility] BrookWpvikrzXXKNIFUXM4756-72-92 22:42:00 Test Item Value Reference Range Interpretation Comments Potassium Lvl (test code = Potassium 5.0 3.5-5.1 N Lvl) [facility] HospitalEfisripXNCJOCEEGN7095-02-68 22:42:00 Test Item Value Reference Range Interpretation Comments Basophils # (test code 0.1 See_Comment N [Aut omated message] The = Basophils #) system which generated this result tra nsmitted reference range : <=0.2. The reference r terri was not used to int erpret this result as normal/abnormal . [facility] HospitalJbjeysvAQHFVZLMGV0755-19-64 22:42:00 Test Item Value Reference Range Interpretation Comments Lymphocytes # (test code = Lymphocytes 2.5 1.0-5.5 N #) [facility] HospitalZsqzwtlDIANEQOBJS0957-72-49 22:42:00 Test Item Value Reference Range Interpretation Comments Basophils (test code = 0.7 See_Comment N [Aut omated message] The Basophils) system which ge nerated this result tra nsmitted reference range : <=1.0. The reference r terri was not used to int erpret this result as normal/abnormal . [facility] HospitalJeedqfxNFPATUVKXV1537-92-62 22:42:00 Test Item Value Reference Range Interpretation Comments Monocytes # (test code 0.4 See_Comment N [Aut omated message] The = Monocytes #) system which generated this result tra nsmitted reference range : <=0.8. The reference r terri was not used to int erpret this result as normal/abnormal . [facility] HospitalSpnfrqxQSFXQYKMJT0389-02-32 22:42:00 Test Item Value Reference Range Interpretation Comments Segs-Bands # (test code = Segs-Bands #) 4.9 1.5-8.1 N [facility] HospitalJkamxrpICRPMWCZUJ0839-86-74 22:42:00 Test Item Value Reference Range Interpretation Comments Eosinophils (test code = 1.0 See_Comment N [A utomated message] The Eosinophils) system which ge nerated this result tra nsmitted reference range : <=4.0. The reference r terri was not used to int erpret this result as normal/abnormal . [facility] HospitalDheqvvmJJUCWOPVEG0508-57-87 22:42:00 Test Item Value Reference Range Interpretation Comments Eosinophils # (test code 0.1 See_Comment N [A utomated message] The = Eosinophils #) system whic h generated this result tra nsmitted reference range : <=0.5. The reference r terri was not used to int erpret this result as normal/abnormal . [facility] HospitalNndxercAHGXUBFVZV4119-60-15 22:42:00 Test Item Value Reference Range Interpretation Comments Monocytes (test code = Monocytes) 5.0 2.0-12.0 N [facility] HospitalStnvtfmYVIDTDXQIH5815-91-60 22:42:00 Test Item Value Reference Range Interpretation Comments Lymphocytes (test code = Lymphocytes) 31.3 20.0-40.0 N [facility] HospitalNbyaldaLQEXGNCKHX0304-15-13 22:42:00 Test Item Value Reference Range Interpretation Comments Segs (test code = Segs) 62.0 45.0-75.0 N [facility] BrookYccflicYMOOEMKGF0352-55-62 22:42:00 Test Item Value Reference Range Interpretation Comments Chloride Lvl (test code = Chloride Lvl) 103 95-109 N [facility] HospitalRquyyopGDBLRHPAKR1094-30-17 22:42:00 Test Item Value Reference Range Interpretation Comments MPV (test code = MPV) 9.0 7.4-10.4 N [facility] HospitalUyggnawNAAQSXQEZM7602-07-47 22:42:00 Test Item Value Reference Range Interpretation Comments MCH (test code = MCH) 30.3 pg 27.0-31.0 N [facility] HospitalXqvucctDTXOSUEMUY6957-23-39 22:42:00 Test Item Value Reference Range Interpretation Comments MCHC (test code = MCHC) 33.5 32.0-36.0 N [facility] HospitalOjniqerMKWKXRNUQM9672-73-25 22:42:00 Test Item Value Reference Range Interpretation Comments Platelet (test code = Platelet) 204 133-450 N [facility] HospitalYtqoaafCILBJISRVH6436-29-88 22:42:00 Test Item Value Reference Range Interpretation Comments RDW (test code = RDW) 12.0 11.5-14.5 N [facility] HospitalEwuwuzwNVWXIWXIXX0513-16-25 22:42:00 Test Item Value Reference Range Interpretation Comments RBC (test code = RBC) 4.38 4.70-6.10 L [facility] HospitalUakpwhsXZESOGOPUD7196-80-96 22:42:00 Test Item Value Reference Range Interpretation Comments WBC (test code = WBC) 8.0 3.7-10.4 N [facility] HospitalUnanmgrVAUPAHHTRT4304-56-67 22:42:00 Test Item Value Reference Range Interpretation Comments MCV (test code = MCV) 90.5 80.0-94.0 N [facility] HospitalUzbwvpvHINJJOYCMN0201-01-80 22:42:00 Test Item Value Reference Range Interpretation Comments Hgb (test code = Hgb) 13.3 14.0-18.0 L [facility] HospitalJkghvhiTBGQGAFSKV5952-10-61 22:42:00 Test Item Value Reference Range Interpretation Comments Hct (test code = Hct) 39.7 42.0-54.0 L [facility] BrookXxftxlgYEUSVXHCG2307-83-23 22:42:00 Test Item Value Reference Range Interpretation Comments Phosphorus (test code = Phosphorus) 4.7 2.5-4.5 H [facility] BrookJdmfethKSDQRRGFU5505-65-26 22:42:00 Test Item Value Reference Range Interpretation Comments BUN (test code = BUN) 13 7-22 N [facility] BrookJysiuhnGPCDXFGSG3902-85-86 22:42:00 Test Item Value Reference Range Interpretation Comments Glucose Lvl (test code = Glucose Lvl) 83 70-99 N [facility] BrookUnbfdrzBIWXUNFGV8582-30-93 22:42:00 Test Item Value Reference Range Interpretation Comments Calcium Lvl (test code = Calcium Lvl) 9.3 8.5-10.5 N [facility] BrookXdbnkfhRECDPPQEV1157-90-55 22:42:00 Test Item Value Reference Range Interpretation Comments Magnesium Lvl (test code = Magnesium 1.8 1.8-2.4 N Lvl) [facility] BrookErjchgqPFKNQJSMC8830-38-84 22:42:00 Test Item Value Reference Range Interpretation Comments CO2 (test code = CO2) 31 24-32 N [facility] BrookJdoynjbOLETSNRRJ4808-27-50 22:42:00 Test Item Value Reference Range Interpretation Comments AGAP (test code = AGAP) 11.0 10.0-20.0 N [facility] BrookOfkryenVDIKHTVNL3583-18-62 22:42:00 Test Item Value Reference Range Interpretation Comments eGFR (test code = eGFR) 131 [facility] BrookOgmzjnsDAJMSRGQI5168-19-23 22:42:00 Test Item Value Reference Range Interpretation Comments Sodium Lvl (test code = Sodium Lvl) 140 135-145 N [facility] BrookQqydgfoQHUBVXCHS8636-89-24 22:42:00 Test Item Value Reference Range Interpretation Comments Creatinine Lvl (test code = Creatinine 0.7 0.5-1.4 N Lvl) [facility] BrookIszguizQSUNYLWZO8646-89-07 22:42:00 Test Item Value Reference Range Interpretation Comments Potassium Lvl (test code = Potassium 5.0 3.5-5.1 N Lvl) [facility] BrookWvrimlxMBOSVJFYR0222-99-09 22:42:00 Test Item Value Reference Range Interpretation Comments Chloride Lvl (test code = Chloride Lvl) 103 95-109 N [facility] BrookTrusonzVZTMCWZGE3419-20-83 22:42:00 Test Item Value Reference Range Interpretation Comments Phosphorus (test code = Phosphorus) 4.7 2.5-4.5 H [facility] BrookIthdfehNWFODAXJK0200-38-52 22:42:00 Test Item Value Reference Range Interpretation Comments Magnesium Lvl (test code = Magnesium 1.8 1.8-2.4 N Lvl) [facility] HospitalVmcqvavENAQNPHYGJ1181-60-44 22:42:00 Test Item Value Reference Range Interpretation Comments Basophils # (test code 0.1 See_Comment N [Aut omated message] The = Basophils #) system which generated this result tra nsmitted reference range : <=0.2. The reference r terri was not used to int erpret this result as normal/abnormal . [facility] HospitalGoyzzsaJAQGTXVBXE6550-85-71 22:42:00 Test Item Value Reference Range Interpretation Comments Basophils # (test code 0.1 See_Comment N [Aut omated message] The = Basophils #) system which generated this result tra nsmitted reference range : <=0.2. The reference r terri was not used to int erpret this result as normal/abnormal . [facility] HospitalNwimnkyEJQBGKHPVJ7264-99-20 22:42:00 Test Item Value Reference Range Interpretation Comments Lymphocytes # (test code = Lymphocytes 2.5 1.0-5.5 N #) [facility] HospitalKbhwfdmGMPSDZBPPV5162-55-27 22:42:00 Test Item Value Reference Range Interpretation Comments Basophils (test code = 0.7 See_Comment N [Aut omated message] The Basophils) system which ge nerated this result tra nsmitted reference range : <=1.0. The reference r terri was not used to int erpret this result as normal/abnormal . [facility] HospitalIwwooonPLXYSITHSQ8002-19-75 22:42:00 Test Item Value Reference Range Interpretation Comments Monocytes # (test code 0.4 See_Comment N [Aut omated message] The = Monocytes #) system which generated this result tra nsmitted reference range : <=0.8. The reference r terri was not used to int erpret this result as normal/abnormal . [facility] HospitalYlqrwmfVEKAXDSDBB3723-60-13 22:42:00 Test Item Value Reference Range Interpretation Comments Segs-Bands # (test code = Segs-Bands #) 4.9 1.5-8.1 N [facility] HospitalGcuzosoGGMNGQAAKB0146-55-26 22:42:00 Test Item Value Reference Range Interpretation Comments Eosinophils (test code = 1.0 See_Comment N [A utomated message] The Eosinophils) system which ge nerated this result tra nsmitted reference range : <=4.0. The reference r terri was not used to int erpret this result as normal/abnormal . [facility] HospitalFifgsxaFSUCTEBQYI6067-45-79 22:42:00 Test Item Value Reference Range Interpretation Comments Eosinophils # (test code 0.1 See_Comment N [A utomated message] The = Eosinophils #) system [facility] h generated this result tra nsmitted reference range : <=0.5. The reference r terri was not used to int erpret this result as normal/abnormal . [facility] HospitalJcnxjuzIDJOBMNHGV7479-75-84 22:42:00 Test Item Value Reference Range Interpretation Comments Monocytes (test code = Monocytes) 5.0 2.0-12.0 N [facility] HospitalNcvjhlmPYERQUQKZJ6762-12-01 22:42:00 Test Item Value Reference Range Interpretation Comments Lymphocytes (test code = Lymphocytes) 31.3 20.0-40.0 N [facility] HospitalFtdivmrOJUQWFZGPU4552-38-14 22:42:00 Test Item Value Reference Range Interpretation Comments Segs (test code = Segs) 62.0 45.0-75.0 N [facility] HospitalEjicgmjBTTQUWSHWF5949-51-15 22:42:00 Test Item Value Reference Range Interpretation Comments MPV (test code = MPV) 9.0 7.4-10.4 N [facility] HospitalXlrgycdPSCUDYNMXU1634-16-72 22:42:00 Test Item Value Reference Range Interpretation Comments Lymphocytes # (test code = Lymphocytes 2.5 1.0-5.5 N #) [facility] HospitalJgqqyavSKBVTDAGDN6779-90-91 22:42:00 Test Item Value Reference Range Interpretation Comments MCH (test code = MCH) 30.3 pg 27.0-31.0 N [facility] HospitalNmsyappFDAYNKMSSK6428-55-44 22:42:00 Test Item Value Reference Range Interpretation Comments MCHC (test code = MCHC) 33.5 32.0-36.0 N [facility] [facility]dux[facility]XDNJTBFOH9860-88-92 22:42:00 Test Item Value Reference Range Interpretation Comments Platelet (test code = Platelet) 204 133-450 N [facility]ZrnmoqoXGDQIWJIXU2614-99-79 22:42:00 Test Item Value Reference Range Interpretation Comments RDW (test code = RDW) 12.0 11.5-14.5 N [facility] HospitalMkwhelvSBOOBXVXKB7422-05-81 22:42:00 Test Item Value Reference Range Interpretation Comments RBC (test code = RBC) 4.38 4.70-6.10 L [facility] HospitalMystsbjBELOUEACSS1317-96-02 22:42:00 Test Item Value Reference Range Interpretation Comments WBC (test code = WBC) 8.0 3.7-10.4 N [facility] HospitalYthesezODPEPUGVPQ4504-91-90 22:42:00 Test Item Value Reference Range Interpretation Comments MCV (test code = MCV) 90.5 80.0-94.0 N [facility] HospitalHhmbofhFCPTNYGUWR6675-41-16 22:42:00 Test Item Value Reference Range Interpretation Comments Hgb (test code = Hgb) 13.3 14.0-18.0 L [facility] HospitalCjovzwcRITQPWEJNF3785-81-40 22:42:00 Test Item Value Reference Range Interpretation Comments Hct (test code = Hct) 39.7 42.0-54.0 L [facility] HospitalDtuuscuPYJGNWGIVN9476-68-90 22:42:00 Test Item Value Reference Range Interpretation Comments Basophils (test code = 0.7 See_Comment N [Aut omated message] The Basophils) system which ge nerated this result tra nsmitted reference range : <=1.0. The reference r terri was not used to int erpret this result as normal/abnormal . [facility]WccyqivDCABFATTJ0175-34-32 22:42:00 Test Item Value Reference Range Interpretation Comments BUN (test code = BUN) 13 7-22 N [facility] BrookStzvgywGWFIIUOFC2031-10-58 22:42:00 Test Item Value Reference Range Interpretation Comments Glucose Lvl (test code = Glucose Lvl) 83 70-99 N [facility] BrookLgxvpdiDIJRQMPXY7610-25-67 22:42:00 Test Item Value Reference Range Interpretation Comments Calcium Lvl (test code = Calcium Lvl) 9.3 8.5-10.5 N [facility] BrookTzlnezsEXWEWVSDH9373-99-85 22:42:00 Test Item Value Reference Range Interpretation Comments CO2 (test code = CO2) 31 24-32 N [facility] HospitalQqcprxgECGZYBPDUH3952-56-48 22:42:00 Test Item Value Reference Range Interpretation Comments Monocytes # (test code 0.4 See_Comment N [Aut omated message] The = Monocytes #) system which generated this result tra nsmitted reference range : <=0.8. The reference r terri was not used to int erpret this result as normal/abnormal . [facility] BrookIbgrkanHTZVFOGLO6477-19-53 22:42:00 Test Item Value Reference Range Interpretation Comments AGAP (test code = AGAP) 11.0 10.0-20.0 N [facility] BrookQomsnnoLQAYOUOTL9370-42-59 22:42:00 Test Item Value Reference Range Interpretation Comments eGFR (test code = eGFR) 131 [facility] BrookLxutqlnENVWOXWNB0065-87-79 22:42:00 Test Item Value Reference Range Interpretation Comments Sodium Lvl (test code = Sodium Lvl) 140 135-145 N [facility] BrookJdhqmtqGMKRDKBDC9054-09-30 22:42:00 Test Item Value Reference Range Interpretation Comments Creatinine Lvl (test code = Creatinine 0.7 0.5-1.4 N Lvl) [facility] BrookKaedkeyWJHQOJKVJ8680-77-23 22:42:00 Test Item Value Reference Range Interpretation Comments Potassium Lvl (test code = Potassium 5.0 3.5-5.1 N Lvl) [facility] BrookXkxxlssSRBKAVZVB8544-06-38 22:42:00 Test Item Value Reference Range Interpretation Comments Chloride Lvl (test code = Chloride Lvl) 103 95-109 N [facility] BrookZxwlfzeKKSSQTUJA5610-26-41 22:42:00 Test Item Value Reference Range Interpretation Comments Phosphorus (test code = Phosphorus) 4.7 2.5-4.5 H [facility] BrookCljvlomVOPSEOZXK4541-59-12 22:42:00 Test Item Value Reference Range Interpretation Comments Magnesium Lvl (test code = Magnesium 1.8 1.8-2.4 N Lvl) [facility] HospitalTuqupmjDRZAXAHJQX2264-76-65 22:42:00 Test Item Value Reference Range Interpretation Comments Basophils # (test code 0.1 See_Comment N [Aut omated message] The = Basophils #) system which generated this result tra nsmitted reference range : <=0.2. The reference r terri was not used to int erpret this result as normal/abnormal . [facility] HospitalAuaodekXWFSNBJIXF2822-01-58 22:42:00 Test Item Value Reference Range Interpretation Comments Lymphocytes # (test code = Lymphocytes 2.5 1.0-5.5 N #) [facility] HospitalZsfgmclQFKPQCCTLM0702-06-38 22:42:00 Test Item Value Reference Range Interpretation Comments Segs-Bands # (test code = Segs-Bands #) 4.9 1.5-8.1 N [facility] HospitalFzlmocdFWLYETARLE6806-03-58 22:42:00 Test Item Value Reference Range Interpretation Comments Basophils (test code = 0.7 See_Comment N [Aut omated message] The Basophils) system which ge nerated this result tra nsmitted reference range : <=1.0. The reference r terri was not used to int erpret this result as normal/abnormal . [facility] HospitalGwtsangQGIXUIMVPP5053-79-09 22:42:00 Test Item Value Reference Range Interpretation Comments Monocytes # (test code 0.4 See_Comment N [Aut omated message] The = Monocytes #) system which generated this result tra nsmitted reference range : <=0.8. The reference r terri was not used to int erpret this result as normal/abnormal . [facility] HospitalKdtmvcmDDKALCVHML1165-54-35 22:42:00 Test Item Value Reference Range Interpretation Comments Segs-Bands # (test code = Segs-Bands #) 4.9 1.5-8.1 N [facility] HospitalGrjgjegAIMDZGFRFT6200-80-57 22:42:00 Test Item Value Reference Range Interpretation Comments Eosinophils (test code = 1.0 See_Comment N [A utomated message] The Eosinophils) system which ge nerated this result tra nsmitted reference range : <=4.0. The reference r terri was not used to int erpret this result as normal/abnormal . [facility] HospitalGqriizpQXEERNTLZT9223-41-73 22:42:00 Test Item Value Reference Range Interpretation Comments Eosinophils # (test code 0.1 See_Comment N [A utomated message] The = Eosinophils #) system whic h generated this result tra nsmitted reference range : <=0.5. The reference r terri was not used to int erpret this result as normal/abnormal . [facility] HospitalUagakyfCGLTMLWKVW8965-92-10 22:42:00 Test Item Value Reference Range Interpretation Comments Monocytes (test code = Monocytes) 5.0 2.0-12.0 N [facility] HospitalFxjrlbkALNWZTLDYA7258-41-47 22:42:00 Test Item Value Reference Range Interpretation Comments Lymphocytes (test code = Lymphocytes) 31.3 20.0-40.0 N [facility] HospitalYvwtphpGZZPEZLAMX7804-65-69 22:42:00 Test Item Value Reference Range Interpretation Comments Segs (test code = Segs) 62.0 45.0-75.0 N [facility] HospitalAaqrmpbWJSRQQACNS0053-47-37 22:42:00 Test Item Value Reference Range Interpretation Comments MPV (test code = MPV) 9.0 7.4-10.4 N [facility] HospitalBsspesnREZBTOCFSD8032-85-56 22:42:00 Test Item Value Reference Range Interpretation Comments MCH (test code = MCH) 30.3 pg 27.0-31.0 N [facility] HospitalZmmxziiSHADFARFVF3892-24-33 22:42:00 Test Item Value Reference Range Interpretation Comments Eosinophils (test code = 1.0 See_Comment N [A utomated message] The Eosinophils) system which ge nerated this result tra nsmitted reference range : <=4.0. The reference r terri was not used to int erpret this result as normal/abnormal . [facility] HospitalRoqxbicMFEUHABVJP0989-87-51 22:42:00 Test Item Value Reference Range Interpretation Comments MCHC (test code = MCHC) 33.5 32.0-36.0 N [facility] HospitalFhjpdqbOKKUOLGDAL3436-47-27 22:42:00 Test Item Value Reference Range Interpretation Comments Platelet (test code = Platelet) 204 133-450 N [facility] HospitalKnfsonqPXJKAPKXEE3349-79-39 22:42:00 Test Item Value Reference Range Interpretation Comments RDW (test code = RDW) 12.0 11.5-14.5 N [facility] HospitalNwqclmyFNXMLSHECT7925-54-40 22:42:00 Test Item Value Reference Range Interpretation Comments RBC (test code = RBC) 4.38 4.70-6.10 L [facility] HospitalEkmcdgkZLCMKZQYQU4643-62-25 22:42:00 Test Item Value Reference Range Interpretation Comments WBC (test code = WBC) 8.0 3.7-10.4 N [facility] HospitalEffhrugXYRDDRAGNY6504-71-63 22:42:00 Test Item Value Reference Range Interpretation Comments MCV (test code = MCV) 90.5 80.0-94.0 N [facility] HospitalXhqbzeqIWTMFDQKUW3165-46-65 22:42:00 Test Item Value Reference Range Interpretation Comments Hgb (test code = Hgb) 13.3 14.0-18.0 L [facility] HospitalRszqvqgMWLRMCJKRM1202-32-91 22:42:00 Test Item Value Reference Range Interpretation Comments Hct (test code = Hct) 39.7 42.0-54.0 L [facility] HospitalLdjevfjIVKKFZDLDX3147-73-35 22:42:00 Test Item Value Reference Range Interpretation Comments Eosinophils # (test code 0.1 See_Comment N [A utomated message] The = Eosinophils #) system whic h generated this result tra nsmitted reference range : <=0.5. The reference r terri was not used to int erpret this result as normal/abnormal . [facility] BrookPfjrfwpNGSXXUOBC9416-34-84 22:42:00 Test Item Value Reference Range Interpretation Comments BUN (test code = BUN) 13 7-22 N [facility] BrookAlugqlqNUUYRPYOP3979-24-39 22:42:00 Test Item Value Reference Range Interpretation Comments Glucose Lvl (test code = Glucose Lvl) 83 70-99 N [facility] BrookWmsvpejNPLNKMSFK8415-54-11 22:42:00 Test Item Value Reference Range Interpretation Comments Calcium Lvl (test code = Calcium Lvl) 9.3 8.5-10.5 N [facility] BrookSgtizdrKRXUTXHKW8948-75-12 22:42:00 Test Item Value Reference Range Interpretation Comments CO2 (test code = CO2) 31 24-32 N [facility] BrookTdvqyeoFNDEXBLUQ1364-00-15 22:42:00 Test Item Value Reference Range Interpretation Comments AGAP (test code = AGAP) 11.0 10.0-20.0 N [facility] HospitalUrwqoreDXDVSEQFAQ5938-61-64 22:42:00 Test Item Value Reference Range Interpretation Comments Monocytes (test code = Monocytes) 5.0 2.0-12.0 N [facility] BrookAssrttvVWTOFKATJ3679-13-85 22:42:00 Test Item Value Reference Range Interpretation Comments eGFR (test code = eGFR) 131 [facility] BrookXilbfcrRAKVNIYWO0061-16-77 22:42:00 Test Item Value Reference Range Interpretation Comments Sodium Lvl (test code = Sodium Lvl) 140 135-145 N [facility] BrookVdbpzbiBYROYPXNJ7665-22-37 22:42:00 Test Item Value Reference Range Interpretation Comments Creatinine Lvl (test code = Creatinine 0.7 0.5-1.4 N Lvl) [facility] BrookSxlvhpoYVYAORRUF6791-45-32 22:42:00 Test Item Value Reference Range Interpretation Comments Potassium Lvl (test code = Potassium 5.0 3.5-5.1 N Lvl) [facility] BrookCvliaumZPRZKIQVJ8251-67-05 22:42:00 Test Item Value Reference Range Interpretation Comments Chloride Lvl (test code = Chloride Lvl) 103 95-109 N [facility] BrookWkouwhzVPGBACREQ9439-79-48 22:42:00 Test Item Value Reference Range Interpretation Comments Phosphorus (test code = Phosphorus) 4.7 2.5-4.5 H [facility] BrookCoigehzWFPBMUHTX1433-63-60 22:42:00 Test Item Value Reference Range Interpretation Comments Magnesium Lvl (test code = Magnesium 1.8 1.8-2.4 N Lvl) [facility] HospitalXjoeqmxGUZEUHGUPA8272-05-27 22:42:00 Test Item Value Reference Range Interpretation Comments Basophils # (test code 0.1 See_Comment N [Aut omated message] The = Basophils #) system which generated this result tra nsmitted reference range : <=0.2. The reference r terri was not used to int erpret this result as normal/abnormal . [facility] HospitalHncbjhpDMNZTTQQGK0011-22-85 22:42:00 Test Item Value Reference Range Interpretation Comments Lymphocytes # (test code = Lymphocytes 2.5 1.0-5.5 N #) [facility] HospitalFnfxhvxEPFPJLGXDT6358-28-56 22:42:00 Test Item Value Reference Range Interpretation Comments Basophils (test code = 0.7 See_Comment N [Aut omated message] The Basophils) system which ge nerated this result tra nsmitted reference range : <=1.0. The reference r terri was not used to int erpret this result as normal/abnormal . [facility] HospitalIgbakplICSOGPZZIF8070-64-20 22:42:00 Test Item Value Reference Range Interpretation Comments Lymphocytes (test code = Lymphocytes) 31.3 20.0-40.0 N [facility] HospitalOdzqkotSNAUNUGZMR2462-91-51 22:42:00 Test Item Value Reference Range Interpretation Comments Monocytes # (test code 0.4 See_Comment N [Aut omated message] The = Monocytes #) system which generated this result tra nsmitted reference range : <=0.8. The reference r terri was not used to int erpret this result as normal/abnormal . [facility] HospitalBkaoykeKKNWXROVWX9989-67-36 22:42:00 Test Item Value Reference Range Interpretation Comments Segs-Bands # (test code = Segs-Bands #) 4.9 1.5-8.1 N [facility] HospitalHmafwcnSECRJIAOGO6399-33-93 22:42:00 Test Item Value Reference Range Interpretation Comments Eosinophils (test code = 1.0 See_Comment N [A utomated message] The Eosinophils) system which ge nerated this result tra nsmitted reference range : <=4.0. The reference r terri was not used to int erpret this result as normal/abnormal . [facility] HospitalKskaxyzLCYSUUIKWU0117-96-75 22:42:00 Test Item Value Reference Range Interpretation Comments Eosinophils # (test code 0.1 See_Comment N [A utomated message] The = Eosinophils #) system ic h generated this result tra nsmitted reference range : <=0.5. The reference r terri was not used to int erpret this result as normal/abnormal . [facility] HospitalXukrpksHLFTKKZPFF0844-16-53 22:42:00 Test Item Value Reference Range Interpretation Comments Monocytes (test code = Monocytes) 5.0 2.0-12.0 N [facility] HospitalCfhpdcjBIHMMAMDEL4823-62-13 22:42:00 Test Item Value Reference Range Interpretation Comments Lymphocytes (test code = Lymphocytes) 31.3 20.0-40.0 N [facility] HospitalVfingftEBLBQRPHKU7281-63-51 22:42:00 Test Item Value Reference Range Interpretation Comments Segs (test code = Segs) 62.0 45.0-75.0 N [facility] HospitalIxlnwluEHSNAHAXMF3861-64-52 22:42:00 Test Item Value Reference Range Interpretation Comments MPV (test code = MPV) 9.0 7.4-10.4 N [facility] HospitalCpbqwbfHMGQAEHJFI9415-48-45 22:42:00 Test Item Value Reference Range Interpretation Comments MCH (test code = MCH) 30.3 pg 27.0-31.0 N [facility] HospitalNljcafqFQRQNVVBRY9688-69-14 22:42:00 Test Item Value Reference Range Interpretation Comments MCHC (test code = MCHC) 33.5 32.0-36.0 N [facility] HospitalZcsuuedJJYABVZAKR4220-75-16 22:42:00 Test Item Value Reference Range Interpretation Comments Segs (test code = Segs) 62.0 45.0-75.0 N [facility] HospitalNjacgweSTQBGBLEYF8233-64-17 22:42:00 Test Item Value Reference Range Interpretation Comments Platelet (test code = Platelet) 204 133-450 N [facility] HospitalLvklenbPDTYMGCXMS9310-09-75 22:42:00 Test Item Value Reference Range Interpretation Comments RDW (test code = RDW) 12.0 11.5-14.5 N [facility] HospitalCurpagyLIWCRAAUVB0627-65-44 22:42:00 Test Item Value Reference Range Interpretation Comments RBC (test code = RBC) 4.38 4.70-6.10 L [facility] HospitalUtawwolGWOIBIMFUB5136-57-68 22:42:00 Test Item Value Reference Range Interpretation Comments WBC (test code = WBC) 8.0 3.7-10.4 N [facility] HospitalPtgznhoJWASUXWMCN4222-95-83 22:42:00 Test Item Value Reference Range Interpretation Comments MCV (test code = MCV) 90.5 80.0-94.0 N [facility] HospitalNopxyogGLTXHVQBYR1877-13-67 22:42:00 Test Item Value Reference Range Interpretation Comments Hgb (test code = Hgb) 13.3 14.0-18.0 L [facility] HospitalPeqinjqNEZJYPLPPW9682-67-49 22:42:00 Test Item Value Reference Range Interpretation Comments Hct (test code = Hct) 39.7 42.0-54.0 L [facility] HospitalBycfekdVPLRQJWROS5323-25-10 22:42:00 Test Item Value Reference Range Interpretation Comments MPV (test code = MPV) 9.0 7.4-10.4 N [facility] BrookCjvotfmUGJADGDPH4019-11-19 22:42:00 Test Item Value Reference Range Interpretation Comments BUN (test code = BUN) 13 7-22 N [facility] BrookYepfqroADEXDEVWL7728-04-08 22:42:00 Test Item Value Reference Range Interpretation Comments Glucose Lvl (test code = Glucose Lvl) 83 70-99 N [facility] BrookTmpjjssPLIQOGVHD0148-88-24 22:42:00 Test Item Value Reference Range Interpretation Comments Calcium Lvl (test code = Calcium Lvl) 9.3 8.5-10.5 N [facility] BrookLvhkukkZQALWESQX8329-25-79 22:42:00 Test Item Value Reference Range Interpretation Comments CO2 (test code = CO2) 31 24-32 N [facility] BrookMaydvruVUCYZVQKF2375-66-58 22:42:00 Test Item Value Reference Range Interpretation Comments AGAP (test code = AGAP) 11.0 10.0-20.0 N [facility] BrookDtfzyihOEKVYIVCY0551-99-77 22:42:00 Test Item Value Reference Range Interpretation Comments eGFR (test code = eGFR) 131 [facility] HospitalDrbhrchBQBBRMOUTJ4724-57-89 22:42:00 Test Item Value Reference Range Interpretation Comments MCH (test code = MCH) 30.3 pg 27.0-31.0 N [facility] BrookNmwpfnbXJGIYISSM6170-81-25 22:42:00 Test Item Value Reference Range Interpretation Comments Sodium Lvl (test code = Sodium Lvl) 140 135-145 N [facility] BrookTtfwvqeIBRPUHDAU9679-87-67 22:42:00 Test Item Value Reference Range Interpretation Comments Creatinine Lvl (test code = Creatinine 0.7 0.5-1.4 N Lvl) [facility] BrookVcyplymHZTZOLJLJ2085-30-33 22:42:00 Test Item Value Reference Range Interpretation Comments Potassium Lvl (test code = Potassium 5.0 3.5-5.1 N Lvl) [facility] BrookElyyewrYLBVGYWUK0701-88-57 22:42:00 Test Item Value Reference Range Interpretation Comments Chloride Lvl (test code = Chloride Lvl) 103 95-109 N [facility] BrookQdzdzdxCUKAMDNET2005-51-83 22:42:00 Test Item Value Reference Range Interpretation Comments Phosphorus (test code = Phosphorus) 4.7 2.5-4.5 H [facility] BrookUbpwbajBWSTJOENW2097-24-04 22:42:00 Test Item Value Reference Range Interpretation Comments Magnesium Lvl (test code = Magnesium 1.8 1.8-2.4 N Lvl) [facility] HospitalDanyvdwNLVEMZJUVD8995-28-95 22:42:00 Test Item Value Reference Range Interpretation Comments Basophils # (test code 0.1 See_Comment N [Aut omated message] The = Basophils #) system which generated this result tra nsmitted reference range : <=0.2. The reference r terri was not used to int erpret this result as normal/abnormal . [facility] HospitalFvbpmvzOAEQCRIUDX9847-45-72 22:42:00 Test Item Value Reference Range Interpretation Comments Lymphocytes # (test code = Lymphocytes 2.5 1.0-5.5 N #) [facility] HospitalVjlrjvqSJKRTQXZLC4513-36-48 22:42:00 Test Item Value Reference Range Interpretation Comments Basophils (test code = 0.7 See_Comment N [Aut omated message] The Basophils) system which ge nerated this result tra nsmitted reference range : <=1.0. The reference r terri was not used to int erpret this result as normal/abnormal . [facility] HospitalCfxqzjrMBXCYJZKEL5527-53-79 22:42:00 Test Item Value Reference Range Interpretation Comments Monocytes # (test code 0.4 See_Comment N [Aut omated message] The = Monocytes #) system which generated this result tra nsmitted reference range : <=0.8. The reference r terri was not used to int erpret this result as normal/abnormal . [facility] HospitalGhohbktOBGHWBJUKT0111-98-12 22:42:00 Test Item Value Reference Range Interpretation Comments MCHC (test code = MCHC) 33.5 32.0-36.0 N [facility] HospitalQrjpiyyXNMSHABZUR0468-10-46 22:42:00 Test Item Value Reference Range Interpretation Comments Segs-Bands # (test code = Segs-Bands #) 4.9 1.5-8.1 N [facility] HospitalIlkfvqkCNDLVLVBVC5804-35-28 22:42:00 Test Item Value Reference Range Interpretation Comments Eosinophils (test code = 1.0 See_Comment N [A utomated message] The Eosinophils) system which ge nerated this result tra nsmitted reference range : <=4.0. The reference r terri was not used to int erpret this result as normal/abnormal . [facility] HospitalMnsgfbwUVBKCZSADW8061-72-56 22:42:00 Test Item Value Reference Range Interpretation Comments Eosinophils # (test code 0.1 See_Comment N [A utomated message] The = Eosinophils #) system whic h generated this result tra nsmitted reference range : <=0.5. The reference r terri was not used to int erpret this result as normal/abnormal . [facility] HospitalZdhfecwREAYHUMQOK3445-13-35 22:42:00 Test Item Value Reference Range Interpretation Comments Monocytes (test code = Monocytes) 5.0 2.0-12.0 N [facility] HospitalBukwyybKGNLURIWGI6679-06-03 22:42:00 Test Item Value Reference Range Interpretation Comments Lymphocytes (test code = Lymphocytes) 31.3 20.0-40.0 N [facility] HospitalKwedyflXULJGRILSU6375-76-54 22:42:00 Test Item Value Reference Range Interpretation Comments Segs (test code = Segs) 62.0 45.0-75.0 N [facility] HospitalAaqtamhYIQYOESQCD8676-59-51 22:42:00 Test Item Value Reference Range Interpretation Comments MPV (test code = MPV) 9.0 7.4-10.4 N [facility] HospitalUspfozuVPXFXHIPCM6938-81-56 22:42:00 Test Item Value Reference Range Interpretation Comments MCH (test code = MCH) 30.3 pg 27.0-31.0 N [facility] HospitalNqksseoDFLLMLQXFX0709-91-56 22:42:00 Test Item Value Reference Range Interpretation Comments MCHC (test code = MCHC) 33.5 32.0-36.0 N [facility] HospitalSlrcspsLXELVXVFRG3798-68-79 22:42:00 Test Item Value Reference Range Interpretation Comments Platelet (test code = Platelet) 204 133-450 N [facility] HospitalCkoukaaBJYPGLFGBO0261-95-34 22:42:00 Test Item Value Reference Range Interpretation Comments Platelet (test code = Platelet) 204 133-450 N [facility] HospitalCynidarXEXVZMFBQO1602-25-82 22:42:00 Test Item Value Reference Range Interpretation Comments RDW (test code = RDW) 12.0 11.5-14.5 N [facility] HospitalZxzqgfeAYHHSIZPTT1086-87-52 22:42:00 Test Item Value Reference Range Interpretation Comments RBC (test code = RBC) 4.38 4.70-6.10 L [facility] HospitalPusatriQVRVBVXMSF8945-57-07 22:42:00 Test Item Value Reference Range Interpretation Comments WBC (test code = WBC) 8.0 3.7-10.4 N [facility] HospitalTuqczruYHRWNARXAC2977-11-20 22:42:00 Test Item Value Reference Range Interpretation Comments MCV (test code = MCV) 90.5 80.0-94.0 N [facility] HospitalUglibeuRYLJCMLXLT8843-00-62 22:42:00 Test Item Value Reference Range Interpretation Comments Hgb (test code = Hgb) 13.3 14.0-18.0 L [facility] HospitalJrammtdHCTJVRCMJE6361-48-09 22:42:00 Test Item Value Reference Range Interpretation Comments Hct (test code = Hct) 39.7 42.0-54.0 L [facility] HospitalBwecdsyZBWZRZXIHP7679-68-24 22:42:00 Test Item Value Reference Range Interpretation Comments RDW (test code = RDW) 12.0 11.5-14.5 N [facility] HospitalJamfvdtGURLYIWOFA8535-96-55 22:42:00 Test Item Value Reference Range Interpretation Comments RBC (test code = RBC) 4.38 4.70-6.10 L [facility] HospitalGjpjtshGUHEVRCOZA8968-84-79 22:42:00 Test Item Value Reference Range Interpretation Comments WBC (test code = WBC) 8.0 3.7-10.4 N [facility] HospitalJbwdahqPMIWCLRBMZ1068-46-22 22:42:00 Test Item Value Reference Range Interpretation Comments MCV (test code = MCV) 90.5 80.0-94.0 N [facility] HospitalVdwqpgcVNCZOXEVZF7222-29-76 22:42:00 Test Item Value Reference Range Interpretation Comments Hgb (test code = Hgb) 13.3 14.0-18.0 L [facility] HospitalCqqompyDEMSXGPEVM3929-71-49 22:42:00 Test Item Value Reference Range Interpretation Comments Hct (test code = Hct) 39.7 42.0-54.0 L [facility] BrookPbwtswyDHAKCOWDR1261-97-66 22:42:00 Test Item Value Reference Range Interpretation Comments BUN (test code = BUN) 13 7-22 N [place] 109592-11-17 22:42:00 Test Item Value Reference Range Interpretation Comments Glucose Lvl (test code = Glucose Lvl) 83 70-99 N [facility] BrookGhlhaitJYQIZSTUW4516-66-33 22:42:00 Test Item Value Reference Range Interpretation Comments Calcium Lvl (test code = Calcium Lvl) 9.3 8.5-10.5 N [facility] BrookFddsrlqTXVNVKCBY4572-00-29 22:42:00 Test Item Value Reference Range Interpretation Comments CO2 (test code = CO2) 31 24-32 N [facility] [place]RamgsmiVMJCEFSUM9740-06-67 22:42:00 Test Item Value Reference Range Interpretation Comments AGAP (test code = AGAP) 11.0 10.0-20.0 N [facility] BrookXenrgigZULGFOGOD5221-79-51 22:42:00 Test Item Value Reference Range Interpretation Comments eGFR (test code = eGFR) 131 [facility] BrookGrqndsiGISJJCLSC0769-24-47 22:42:00 Test Item Value Reference Range Interpretation Comments Sodium Lvl (test code = Sodium Lvl) 140 135-145 N [facility] BrookLzpludiMIDSHDTXZ8301-16-56 22:42:00 Test Item Value Reference Range Interpretation Comments Creatinine Lvl (test code = Creatinine 0.7 0.5-1.4 N Lvl) [facility] BrookKdbvwhbVPIQIQZDR1037-02-16 22:42:00 Test Item Value Reference Range Interpretation Comments Potassium Lvl (test code = Potassium 5.0 3.5-5.1 N Lvl) [facility] BrookMuypbzpPTOHKHTDH8399-65-05 22:42:00 Test Item Value Reference Range Interpretation Comments Chloride Lvl (test code = Chloride Lvl) 103 95-109 N [facility] BrookLqiahwzIVVPWGMUJ8566-02-60 22:42:00 Test Item Value Reference Range Interpretation Comments Phosphorus (test code = Phosphorus) 4.7 2.5-4.5 H [facility] BrookVrsjptfFGWCXXGAA7776-92-28 22:42:00 Test Item Value Reference Range Interpretation Comments Magnesium Lvl (test code = Magnesium 1.8 1.8-2.4 N Lvl) [facility]XryuinvVTNIPWIRHZ9048-50-84 22:42:00 Test Item Value Reference Range Interpretation Comments Basophils # (test code 0.1 See_Comment N [Aut omated message] The = Basophils #) system which generated this result tra nsmitted reference range : <=0.2. The reference r terri was not used to int erpret this result as normal/abnormal . [facility] HospitalOlttafkRKXRYWWXNN5077-70-99 22:42:00 Test Item Value Reference Range Interpretation Comments Lymphocytes # (test code = Lymphocytes 2.5 1.0-5.5 N #) [facility] HospitalPtxtgtpUNFUDFXCAW0723-56-60 22:42:00 Test Item Value Reference Range Interpretation Comments Basophils (test code = 0.7 See_Comment N [Aut omated message] The Basophils) system which ge nerated this result tra nsmitted reference range : <=1.0. The reference r terri was not used to int erpret this result as normal/abnormal . [facility] HospitalPvdnkeyEFLSXBTRHB4901-64-17 22:42:00 Test Item Value Reference Range Interpretation Comments Monocytes # (test code 0.4 See_Comment N [Aut omated message] The = Monocytes #) system which generated this result tra nsmitted reference range : <=0.8. The reference r terri was not used to int erpret this result as normal/abnormal . [facility] HospitalKeyqdcoYMDZNHUXXT2484-00-08 22:42:00 Test Item Value Reference Range Interpretation Comments Segs-Bands # (test code = Segs-Bands #) 4.9 1.5-8.1 N [facility] HospitalWfsfhlnQUCGMOSTUH7698-99-37 22:42:00 Test Item Value Reference Range Interpretation Comments Eosinophils (test code = 1.0 See_Comment N [A utomated message] The Eosinophils) system which ge nerated this result tra nsmitted reference range : <=4.0. The reference r terri was not used to int erpret this result as normal/abnormal . [facility] HospitalUzzvsyvXGKZKHKBYH9987-13-41 22:42:00 Test Item Value Reference Range Interpretation Comments Eosinophils # (test code 0.1 See_Comment N [A utomated message] The = Eosinophils #) system wh h generated this result tra nsmitted reference range : <=0.5. The reference r terri was not used to int erpret this result as normal/abnormal . [facility] HospitalFmspsqkHMWFYAYYCE9580-45-63 22:42:00 Test Item Value Reference Range Interpretation Comments Monocytes (test code = Monocytes) 5.0 2.0-12.0 N [facility] HospitalApkdsgmEIXKBJPTAJ6559-41-05 22:42:00 Test Item Value Reference Range Interpretation Comments Lymphocytes (test code = Lymphocytes) 31.3 20.0-40.0 N [facility] HospitalDlkhjhqQPQJYLWTKT7594-27-35 22:42:00 Test Item Value Reference Range Interpretation Comments Segs (test code = Segs) 62.0 45.0-75.0 N [facility] HospitalJdamhbjLIFJWQTNVA0638-78-81 22:42:00 Test Item Value Reference Range Interpretation Comments MPV (test code = MPV) 9.0 7.4-10.4 N [facility] HospitalRluqiinERVHIVXPRH3035-64-74 22:42:00 Test Item Value Reference Range Interpretation Comments MCH (test code = MCH) 30.3 pg 27.0-31.0 N [facility] HospitalXbbrypzNYHBQEVHFG7098-28-33 22:42:00 Test Item Value Reference Range Interpretation Comments MCHC (test code = MCHC) 33.5 32.0-36.0 N [facility] HospitalKpwbckiVWLJIOCWLJ7654-55-77 22:42:00 Test Item Value Reference Range Interpretation Comments Platelet (test code = Platelet) 204 133-450 N [facility] HospitalEanelyqHCVGUWEOHM7598-84-31 22:42:00 Test Item Value Reference Range Interpretation Comments RDW (test code = RDW) 12.0 11.5-14.5 N [facility] HospitalJqkquidVRKLKCAKGN7719-94-17 22:42:00 Test Item Value Reference Range Interpretation Comments RBC (test code = RBC) 4.38 4.70-6.10 L [facility] HospitalLrzxyckWOIZUZMKNP5584-15-04 22:42:00 Test Item Value Reference Range Interpretation Comments WBC (test code = WBC) 8.0 3.7-10.4 N [facility] HospitalFvddqgoCMZULYKOYR6297-14-86 22:42:00 Test Item Value Reference Range Interpretation Comments MCV (test code = MCV) 90.5 80.0-94.0 N [facility] HospitalRztgotlVLYDZGGWOY8984-69-18 22:42:00 Test Item Value Reference Range Interpretation Comments Hgb (test code = Hgb) 13.3 14.0-18.0 L [facility] HospitalChhuhreHWNBDIUSCM5655-64-40 22:42:00 Test Item Value Reference Range Interpretation Comments Hct (test code = Hct) 39.7 42.0-54.0 L [facility] BrookXodzorxSLVBIERKG1118-04-92 22:42:00 Test Item Value Reference Range Interpretation Comments BUN (test code = BUN) 13 7-22 N [facility] BrookJbhokapYLFJTNEKP1037-26-82 22:42:00 Test Item Value Reference Range Interpretation Comments Glucose Lvl (test code = Glucose Lvl) 83 70-99 N [facility] BrookPrgwodcGCRHDAZMF5938-11-26 22:42:00 Test Item Value Reference Range Interpretation Comments Calcium Lvl (test code = Calcium Lvl) 9.3 8.5-10.5 N [facility] BrookGqzqtatGZVTEWPJH8995-30-82 22:42:00 Test Item Value Reference Range Interpretation Comments CO2 (test code = CO2) 31 24-32 N [facility] BrookNububanCROCAURJH9067-01-38 22:42:00 Test Item Value Reference Range Interpretation Comments AGAP (test code = AGAP) 11.0 10.0-20.0 N [facility] BrookAwcejdnJRJAZGHQZ5379-06-20 22:42:00 Test Item Value Reference Range Interpretation Comments eGFR (test code = eGFR) 131 [facility] BrookVuclgpoDRLWEIANR0599-04-57 22:42:00 Test Item Value Reference Range Interpretation Comments Sodium Lvl (test code = Sodium Lvl) 140 135-145 N [facility] BrookAcncdnpFWZZAHEPM7802-22-03 22:42:00 Test Item Value Reference Range Interpretation Comments Creatinine Lvl (test code = Creatinine 0.7 0.5-1.4 N Lvl) [facility] BrookDtbxmflGYDRJKRST7708-74-87 22:42:00 Test Item Value Reference Range Interpretation Comments Potassium Lvl (test code = Potassium 5.0 3.5-5.1 N Lvl) [facility] BrookIgcgebhDIUNBSJUN8415-76-66 22:42:00 Test Item Value Reference Range Interpretation Comments Chloride Lvl (test code = Chloride Lvl) 103 95-109 N [facility] BrookIytgrdxCAXLDKROB2597-64-29 22:42:00 Test Item Value Reference Range Interpretation Comments BUN (test code = BUN) 13 7-22 N [facility] BrookAwkytxhEZAQXPSTL4382-93-32 22:42:00 Test Item Value Reference Range Interpretation Comments Glucose Lvl (test code = Glucose Lvl) 83 70-99 N [facility] BrookEjyxepnCVEOHDBTE7503-14-27 22:42:00 Test Item Value Reference Range Interpretation Comments Calcium Lvl (test code = Calcium Lvl) 9.3 8.5-10.5 N [facility] BrookTglmegxUBRKNAMAA9624-50-29 22:42:00 Test Item Value Reference Range Interpretation Comments CO2 (test code = CO2) 31 24-32 N [facility] BrookFrcjzjlNDGSTQJHV1162-75-02 22:42:00 Test Item Value Reference Range Interpretation Comments AGAP (test code = AGAP) 11.0 10.0-20.0 N [facility] BrookUqcfwbnCCAHUZPII5584-56-78 22:42:00 Test Item Value Reference Range Interpretation Comments eGFR (test code = eGFR) 131 [facility] BrookYrandhoAVHNPVYOK0107-23-69 22:42:00 Test Item Value Reference Range Interpretation Comments Sodium Lvl (test code = Sodium Lvl) 140 135-145 N [facility] BrookHhmuwszLENJNDAXK0395-42-63 22:42:00 Test Item Value Reference Range Interpretation Comments Creatinine Lvl (test code = Creatinine 0.7 0.5-1.4 N Lvl) [facility] BrookDmjkxmcLTCPYTKFC6172-09-77 22:42:00 Test Item Value Reference Range Interpretation Comments Potassium Lvl (test code = Potassium 5.0 3.5-5.1 N Lvl) [facility] BrookIwajakoMIJCEAWGP3621-80-31 22:42:00 Test Item Value Reference Range Interpretation Comments Chloride Lvl (test code = Chloride Lvl) 103 95-109 N [facility] BrookXvwdaqfFSZDQJMSS5949-90-81 22:42:00 Test Item Value Reference Range Interpretation Comments Phosphorus (test code = Phosphorus) 4.7 2.5-4.5 H [facility] BrookSimyfdyOTVNIVJBH7713-94-26 22:42:00 Test Item Value Reference Range Interpretation Comments Magnesium Lvl (test code = Magnesium 1.8 1.8-2.4 N Lvl) [facility] HospitalHtlnemoQKHWHHIKTJ5767-66-77 22:42:00 Test Item Value Reference Range Interpretation Comments Basophils # (test code 0.1 See_Comment N [Aut omated message] The = Basophils #) system which generated this result tra nsmitted reference range : <=0.2. The reference r terri was not used to int erpret this result as normal/abnormal . [facility] HospitalGtvtnkbCXZRUEOUCT8381-53-31 22:42:00 Test Item Value Reference Range Interpretation Comments Lymphocytes # (test code = Lymphocytes 2.5 1.0-5.5 N #) [facility] HospitalJxuxkobQFCWAMJMOY3215-44-14 22:42:00 Test Item Value Reference Range Interpretation Comments Basophils (test code = 0.7 See_Comment N [Aut omated message] The Basophils) system which ge nerated this result tra nsmitted reference range : <=1.0. The reference r terri was not used to int erpret this result as normal/abnormal . [facility] HospitalDhatvbwQMFNRFIDKD7271-93-58 22:42:00 Test Item Value Reference Range Interpretation Comments Monocytes # (test code 0.4 See_Comment N [Aut omated message] The = Monocytes #) system which generated this result tra nsmitted reference range : <=0.8. The reference r terri was not used to int erpret this result as normal/abnormal . [facility] HospitalFnwedjhOGPEKVLJJF9508-76-90 22:42:00 Test Item Value Reference Range Interpretation Comments Segs-Bands # (test code = Segs-Bands #) 4.9 1.5-8.1 N [facility] HospitalHegkjfoOIWLYGEWDI5630-87-09 22:42:00 Test Item Value Reference Range Interpretation Comments Eosinophils (test code = 1.0 See_Comment N [A utomated message] The Eosinophils) system which ge nerated this result tra nsmitted reference range : <=4.0. The reference r terri was not used to int erpret this result as normal/abnormal . [facility] HospitalDcbjacqDOIPKILKDF3268-84-81 22:42:00 Test Item Value Reference Range Interpretation Comments Eosinophils # (test code 0.1 See_Comment N [A utomated message] The = Eosinophils #) system [facility] h generated this result tra nsmitted reference range : <=0.5. The reference r terri was not used to int erpret this result as normal/abnormal . [facility] HospitalDtdhsecTOAYNPZWEF8510-82-17 22:42:00 Test Item Value Reference Range Interpretation Comments Monocytes (test code = Monocytes) 5.0 2.0-12.0 N [facility] HospitalXagwuqsHCCHFWSLIQ7069-92-21 22:42:00 Test Item Value Reference Range Interpretation Comments Lymphocytes (test code = Lymphocytes) 31.3 20.0-40.0 N [facility] HospitalGonnnmrFBDFEPDDDY5079-90-39 22:42:00 Test Item Value Reference Range Interpretation Comments Segs (test code = Segs) 62.0 45.0-75.0 N [facility] HospitalBvmsbxgNAUXLSEIBT8781-24-33 22:42:00 Test Item Value Reference Range Interpretation Comments MPV (test code = MPV) 9.0 7.4-10.4 N [facility] HospitalVclacgqUDMFACVOML9913-75-96 22:42:00 Test Item Value Reference Range Interpretation Comments MCH (test code = MCH) 30.3 pg 27.0-31.0 N [facility] HospitalVprqpchSSRMRWGOOE7393-08-62 22:42:00 Test Item Value Reference Range Interpretation Comments MCHC (test code = MCHC) 33.5 32.0-36.0 N [facility] HospitalDzougjlCQVBVQPOSP4356-55-96 22:42:00 Test Item Value Reference Range Interpretation Comments Platelet (test code = Platelet) 204 133-450 N [facility] HospitalMwxcixbVBMYHUCTDK3614-49-89 22:42:00 Test Item Value Reference Range Interpretation Comments RDW (test code = RDW) 12.0 11.5-14.5 N [facility] HospitalNbjetziNFMAXTQBNU0969-45-15 22:42:00 Test Item Value Reference Range Interpretation Comments RBC (test code = RBC) 4.38 4.70-6.10 L [facility] HospitalNaooxqmHOPUROTUWN5867-62-53 22:42:00 Test Item Value Reference Range Interpretation Comments WBC (test code = WBC) 8.0 3.7-10.4 N [facility] HospitalWbsydeqADPREDMOBF4561-66-99 22:42:00 Test Item Value Reference Range Interpretation Comments MCV (test code = MCV) 90.5 80.0-94.0 N [facility] HospitalWeiuiiwDNOZOWANSA7812-49-95 22:42:00 Test Item Value Reference Range Interpretation Comments Hgb (test code = Hgb) 13.3 14.0-18.0 L [facility] HospitalAqycigoJTUHGLXALP1995-59-51 22:42:00 Test Item Value Reference Range Interpretation Comments Hct (test code = Hct) 39.7 42.0-54.0 L [facility] BrookZindyxgPQOUHDEFB0572-12-33 22:42:00 Test Item Value Reference Range Interpretation Comments BUN (test code = BUN) 13 7-22 N [facility] BrookAllywezZZSGIGWKC9012-08-28 22:42:00 Test Item Value Reference Range Interpretation Comments Phosphorus (test code = Phosphorus) 4.7 2.5-4.5 H [facility] BrookUhnmtnhBJMIXOMKZ0459-03-90 22:42:00 Test Item Value Reference Range Interpretation Comments Magnesium Lvl (test code = Magnesium 1.8 1.8-2.4 N Lvl) [facility] HospitalIryiugcWMJJHDSFMF5027-19-46 22:42:00 Test Item Value Reference Range Interpretation Comments Basophils # (test code 0.1 See_Comment N [Aut omated message] The = Basophils #) system which generated this result tra nsmitted reference range : <=0.2. The reference r terri was not used to int erpret this result as normal/abnormal . [facility] HospitalOpiwcdjZPXMJZQHBJ3169-44-60 22:42:00 Test Item Value Reference Range Interpretation Comments Lymphocytes # (test code = Lymphocytes 2.5 1.0-5.5 N #) [facility] HospitalLezhmlvBMUMWEKVSH9465-00-19 22:42:00 Test Item Value Reference Range Interpretation Comments Basophils (test code = 0.7 See_Comment N [Aut omated message] The Basophils) system which ge nerated this result tra nsmitted reference range : <=1.0. The reference r terri was not used to int erpret this result as normal/abnormal . [facility] HospitalHwurbqyWOCWALGFXU8009-01-64 22:42:00 Test Item Value Reference Range Interpretation Comments Monocytes # (test code 0.4 See_Comment N [Aut omated message] The = Monocytes #) system which generated this result tra nsmitted reference range : <=0.8. The reference r terri was not used to int erpret this result as normal/abnormal . [facility] HospitalSpesnlhPXEHXAULYU0913-30-32 22:42:00 Test Item Value Reference Range Interpretation Comments Segs-Bands # (test code = Segs-Bands #) 4.9 1.5-8.1 N [facility] HospitalGwktgeiDHNZQXOTIA2706-93-49 22:42:00 Test Item Value Reference Range Interpretation Comments Eosinophils (test code = 1.0 See_Comment N [A utomated message] The Eosinophils) system which ge nerated this result tra nsmitted reference range : <=4.0. The reference r terri was not used to int erpret this result as normal/abnormal . [facility] HospitalKbabvimUPHWKOYLYZ9704-87-81 22:42:00 Test Item Value Reference Range Interpretation Comments Eosinophils # (test code 0.1 See_Comment N [A utomated message] The = Eosinophils #) system whic h generated this result tra nsmitted reference range : <=0.5. The reference r terri was not used to int erpret this result as normal/abnormal . [facility] HospitalGpcfabmKOFDIARJHK3734-57-17 22:42:00 Test Item Value Reference Range Interpretation Comments Monocytes (test code = Monocytes) 5.0 2.0-12.0 N [facility] BrookOssokjaZCIEJSTAI0448-44-32 22:42:00 Test Item Value Reference Range Interpretation Comments Glucose Lvl (test code = Glucose Lvl) 83 70-99 N [facility] HospitalArcgqohGWMYYEZSDK8653-08-87 22:42:00 Test Item Value Reference Range Interpretation Comments Lymphocytes (test code = Lymphocytes) 31.3 20.0-40.0 N [facility] HospitalHjhsniwLQBMBGJALB0791-35-93 22:42:00 Test Item Value Reference Range Interpretation Comments Segs (test code = Segs) 62.0 45.0-75.0 N [facility] HospitalNmcvngdTDLRAWCICJ7837-29-40 22:42:00 Test Item Value Reference Range Interpretation Comments MPV (test code = MPV) 9.0 7.4-10.4 N [facility] HospitalJdpezcgOBDUUZLNVI7518-18-83 22:42:00 Test Item Value Reference Range Interpretation Comments MCH (test code = MCH) 30.3 pg 27.0-31.0 N [facility] HospitalPyaqyxcLDFKSVHEBK0918-60-23 22:42:00 Test Item Value Reference Range Interpretation Comments MCHC (test code = MCHC) 33.5 32.0-36.0 N [facility] HospitalOhtlwapMZQWKHTVRD5051-63-47 22:42:00 Test Item Value Reference Range Interpretation Comments Platelet (test code = Platelet) 204 133-450 N [facility] HospitalGlnwgkdAZDJAZLFLJ2881-10-21 22:42:00 Test Item Value Reference Range Interpretation Comments RDW (test code = RDW) 12.0 11.5-14.5 N [facility] HospitalZmmesceMDLFDOMUXO2293-41-26 22:42:00 Test Item Value Reference Range Interpretation Comments RBC (test code = RBC) 4.38 4.70-6.10 L [facility] HospitalLbadioaYCXRBFDNZO3542-93-53 22:42:00 Test Item Value Reference Range Interpretation Comments WBC (test code = WBC) 8.0 3.7-10.4 N [facility] HospitalZznsiziYZEPMPOKEF7712-22-41 22:42:00 Test Item Value Reference Range Interpretation Comments MCV (test code = MCV) 90.5 80.0-94.0 N [facility] BrookJsykajpVPDMNFADR2566-96-81 22:42:00 Test Item Value Reference Range Interpretation Comments Calcium Lvl (test code = Calcium Lvl) 9.3 8.5-10.5 N [facility] HospitalNomfvkhNTZSDBSTMH4469-98-37 22:42:00 Test Item Value Reference Range Interpretation Comments Hgb (test code = Hgb) 13.3 14.0-18.0 L [facility] HospitalMzaahufQTRYIMWHMQ6762-54-59 22:42:00 Test Item Value Reference Range Interpretation Comments Hct (test code = Hct) 39.7 42.0-54.0 L [facility] BrookAypiejwCAFQQWEIK5061-44-38 22:42:00 Test Item Value Reference Range Interpretation Comments BUN (test code = BUN) 13 7-22 N [facility] BrookNktuqffXDLZLYBHN8825-08-86 22:42:00 Test Item Value Reference Range Interpretation Comments CO2 (test code = CO2) 31 24-32 N [facility] BrookLoqixcbVKOKWEGXI7863-94-02 22:42:00 Test Item Value Reference Range Interpretation Comments Glucose Lvl (test code = Glucose Lvl) 83 70-99 N [facility] BrookEcvhvmhVXVCKRUHQ7978-70-28 22:42:00 Test Item Value Reference Range Interpretation Comments Calcium Lvl (test code = Calcium Lvl) 9.3 8.5-10.5 N [facility] BrookCexyazpFRZODDJNP7345-81-71 22:42:00 Test Item Value Reference Range Interpretation Comments CO2 (test code = CO2) 31 24-32 N [facility] BrookKnznlptAHYNMVLDJ3675-61-74 22:42:00 Test Item Value Reference Range Interpretation Comments AGAP (test code = AGAP) 11.0 10.0-20.0 N [facility] BrookMakteuwMUIJXCGYV6484-28-01 22:42:00 Test Item Value Reference Range Interpretation Comments eGFR (test code = eGFR) 131 [facility] BrookEnhneyqZDPREHGQA7993-96-42 22:42:00 Test Item Value Reference Range Interpretation Comments Sodium Lvl (test code = Sodium Lvl) 140 135-145 N [facility] BrookQzoefqpIJNBTUDWO2894-27-52 22:42:00 Test Item Value Reference Range Interpretation Comments Creatinine Lvl (test code = Creatinine 0.7 0.5-1.4 N Lvl) [facility] BrookUipcsnfSKEMPFNRA1182-05-53 22:42:00 Test Item Value Reference Range Interpretation Comments Potassium Lvl (test code = Potassium 5.0 3.5-5.1 N Lvl) [facility] BrookXchzxhhLADROUYFF0046-14-34 22:42:00 Test Item Value Reference Range Interpretation Comments Chloride Lvl (test code = Chloride Lvl) 103 95-109 N [facility] BrookZpkhtdiCUKOUWPRB0550-18-60 22:42:00 Test Item Value Reference Range Interpretation Comments Phosphorus (test code = Phosphorus) 4.7 2.5-4.5 H [facility] BrookRgphttjXJWVOLFKO2401-28-81 22:42:00 Test Item Value Reference Range Interpretation Comments AGAP (test code = AGAP) 11.0 10.0-20.0 N [facility] BrookUxuggsvORGOCSEZE2257-63-21 22:42:00 Test Item Value Reference Range Interpretation Comments Magnesium Lvl (test code = Magnesium 1.8 1.8-2.4 N Lvl) [facility] HospitalRnjopwbLKDOLSVSWG4313-99-97 22:42:00 Test Item Value Reference Range Interpretation Comments Basophils # (test code 0.1 See_Comment N [Aut omated message] The = Basophils #) system which generated this result tra nsmitted reference range : <=0.2. The reference r terri was not used to int erpret this result as normal/abnormal . [facility] HospitalXgkazetOPVTOKIREP4131-72-89 22:42:00 Test Item Value Reference Range Interpretation Comments Lymphocytes # (test code = Lymphocytes 2.5 1.0-5.5 N #) [facility] HospitalOhefvcsEIVVGWTBLS1233-70-23 22:42:00 Test Item Value Reference Range Interpretation Comments Basophils (test code = 0.7 See_Comment N [Aut omated message] The Basophils) system which ge nerated this result tra nsmitted reference range : <=1.0. The reference r terri was not used to int erpret this result as normal/abnormal . [facility] HospitalRwhomnkJJHANPMQXO7449-55-58 22:42:00 Test Item Value Reference Range Interpretation Comments Monocytes # (test code 0.4 See_Comment N [Aut omated message] The = Monocytes #) system which generated this result tra nsmitted reference range : <=0.8. The reference r terri was not used to int erpret this result as normal/abnormal . [facility] HospitalPeglslfZUXAERQUTN4324-39-49 22:42:00 Test Item Value Reference Range Interpretation Comments Segs-Bands # (test code = Segs-Bands #) 4.9 1.5-8.1 N [facility] HospitalGkgjnonHGXSSZOBYW4503-70-38 22:42:00 Test Item Value Reference Range Interpretation Comments Eosinophils (test code = 1.0 See_Comment N [A utomated message] The Eosinophils) system which ge nerated this result tra nsmitted reference range : <=4.0. The reference r terri was not used to int erpret this result as normal/abnormal . [facility] HospitalAugzzudTNMOWEQKWU6127-52-43 22:42:00 Test Item Value Reference Range Interpretation Comments Eosinophils # (test code 0.1 See_Comment N [A utomated message] The = Eosinophils #) system whic h generated this result tra nsmitted reference range : <=0.5. The reference r terri was not used to int erpret this result as normal/abnormal . [facility] HospitalHqtwfjhAPKURNSIFB6258-85-24 22:42:00 Test Item Value Reference Range Interpretation Comments Monocytes (test code = Monocytes) 5.0 2.0-12.0 N [facility] HospitalMxhbuupVALZQMBAGM3570-14-60 22:42:00 Test Item Value Reference Range Interpretation Comments Lymphocytes (test code = Lymphocytes) 31.3 20.0-40.0 N [facility] BrookOmyholrXTSBLUBUV4999-02-63 22:42:00 Test Item Value Reference Range Interpretation Comments eGFR (test code = eGFR) 131 [facility] GLUCOSE OWVJSVH5907-46-47 21:59:00 Test Item Value Reference Range Interpretation Comments Gluc POC [facility] (test code = Gluc POC 86 70-99 N [facility]) [facility] GLUCOSE ZQEAXMD1751-85-20 21:59:00 Test Item Value Reference Range Interpretation Comments Gluc POC [facility] (test code = Gluc POC 86 70-99 N [facility]) [facility] GLUCOSE HEXXMEV4870-22-46 21:59:00 Test Item Value Reference Range Interpretation Comments Gluc POC [facility] (test code = Gluc POC 86 70-99 N [facility]) [facility] GLUCOSE FIZUDKJ2310-55-83 21:59:00 Test Item Value Reference Range Interpretation Comments Gluc POC [facility] (test code = Gluc POC [address]) [facility] GLUCOSE [id number] 21:59:00 Test Item Value Reference Range Interpretation Comments Gluc POC [place] (test code = Gluc POC 86 70-[address] [place]) [facility] GLUCOSE [id number] 21:59:00 Test Item Value Reference Range Interpretation Comments Gluc POC [place] (test code = Gluc POC 86 70-[address] [place]) [facility] GLUCOSE [id number] 21:59:00 Test Item Value Reference Range Interpretation Comments Gluc POC [place] (test code = Gluc POC 86 70-[address] [place]) [facility] GLUCOSE [id number] 21:59:00 Test Item Value Reference Range Interpretation Comments Gluc POC [place] (test code = Gluc POC 86 70-99 [address] [place]) [facility] GLUCOSE [id number] 21:59:00 Test Item Value Reference Range Interpretation Comments Gluc POC [place] (test code = Gluc POC 86 70-99 [address] [place]) [facility] GLUCOSE [id number] 21:59:00 Test Item Value Reference Range Interpretation Comments Gluc POC [place] (test code = Gluc POC 86 70-[address] [place]) [facility]
--- NOTE | 2023-04-21 20:56 | RAD REPORT ---
EXAM DESCRIPTION: CT - Ct Stroke Brain Wo Cont - 04/21/2023 8:48 pm CLINICAL HISTORY: Right-sided numbness COMPARISON: December 2022 TECHNIQUE: Computed axial tomography of the head was obtained. All CT scans are performed using dose optimization technique as appropriate and may include automated exposure control or mA/KV adjustment according to patient size. FINDINGS: An intracranial bleed is not seen . The ventricles are normal in caliber. No extra-axial fluid collection is noted. 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 IMPRESSION: No acute intracranial abnormality is seen. If patient's symptoms persist MRI of the bra in would be recommended Dr Ferrer of the emergency room was notified at 8:50 p.m. April 21, 2023
[2023-04-21 21:06] LABS: Hematocrit 46.1 % (39.6-49.0); Lymphocytes % 43.4 % (15.3-44.8); MCV 83.9 fL (80-100); MPV 7.9 fL (7.6-11.3)
[2023-04-21 21:07] LABS: Protime INR 1.06
--- NOTE | 2023-04-21 21:08 | ER ---
Nurse's Notes [facility] Name: Shan Faye Age: 37 yrs Sex: Male : 1985 Arrival Date: 04/21/2023 Time: 20:29 Bed 17 Private MD: Diagnosis: John's paralysis (postepileptic);Epileptic seizures related to external causes, not intractable, without status epilepticus Presentation: 04/21 20:50 Chief complaint: EMS states: Pt called EMS for right sided weakness and paralysis. Was jb4 able to move right side extremities upon EMS arrival Reports prior deficits and having history of seizures and mini strokes with this happening in the past. 20:50 Coronavirus screen: At this time, the client does not indicate any symptoms associated jb4 with coronavirus-19. Ebola Screen: No symptoms or risks identified at this time. Initial Sepsis Screen: Does the patient meet any 2 criteria? No. Patient's initial sepsis screen is negative. Does the patient have a suspected source of infection? No. Patient's initial sepsis screen is negative. Risk Assessment: Do you want to hurt yourself or someone else? Patient reports no desire to harm self or others. Onset of symptoms was April 21, 2023 at 19:30. Transition of care: patient was not received from another setting of care. 20:50 Method Of Arrival: EMS: [facility] jb4 20:50 Acuity: PAULINE 2 jb4 20:50 An acute neurological deficit is present. The patients blood glucose was checked before jb4 arriving to the hospital and was found to be normal. Stroke Activation: Symptom onset < 3 hours Physician: Stroke Attending; Name: ; Notified At: ; Arrived At: Physician: Chief Stroke Resident; Name: ; Notified At: ; Arrived At: Physician: Stroke Resident; Name: ; Notified At: ; Arrived At: Physician: ED Attending; Name: Nabil; Notified At: 20:34; Arrived At: 20:45 Physician: ED Resident; Name: ; Notified At: ; Arrived At: Historical: - Allergies: 21:07 No Known Allergies; jb4 - Home Meds: 21:07 Keppra 750 mg Oral tab 2 tabs 2 times per day [Active]; jb4 - PMHx: 21:07 Seizure; CVA; brain disorder; jb4 - PSHx: 21:07 Cholecystectomy; jb4 - Family history:: not pertinent. Screenin/20 00:05 [facility] ED Fall Risk Assessment (Adult) History of falling in the last 3 months, jb4 including since admission No falls in past 3 months (0 pts) Confusion or Disorientation No (0 pts) Score/Fall Risk Level 0 - 2 = Low Risk. Abuse screen: Denies threats or abuse. Nutritional screening: No deficits noted. Tuberculosis screening: No symptoms or risk factors identified. Assessment: 04/21 20:50 VAN Scoring: Arm Drift: Severe drift Visual Disturbance: Field Cut: Abnormal visual jb4 morales noted. Provider notified of +VAN scoring. PT reports not being able to see on the right visual field. 20:50 General: Appears in no apparent distress. uncomfortable, Behavior is calm, cooperative, jb4 appropriate for age. Pain: Complains of pain in right arm Pain does not radiate. Pain at worst was 10 out of 10 on a pain scale. Quality of pain is described as numb. Neuro: Level of Consciousness is awake, alert, obeys commands, Oriented to person, place, time, situation, Weakness in right arm(s) leg(s). Cardiovascular: Patient's skin is warm and dry. Respiratory: Airway is patent Respiratory effort is even, unlabored, Respiratory pattern is regular, symmetrical. GI: No signs and/or symptoms were reported involving the gastrointestinal system. : No signs and/or symptoms were reported regarding the genitourinary system. EENT: No signs and/or symptoms were reported regarding the EENT system. Derm: Skin is intact, Skin is pink, warm \T\ dry. Musculoskeletal: Circulation, motion, and sensation intact. Range of motion: intact in all extremities. 22:15 Reassessment: Pt states that symptoms are the same as past events that have gotten jb4 better, reports they are not improving at this time. Provider made aware, pt failed swallow eval. 23:07 Reassessment: Patient appears in no apparent distress at this time. Patient and/or jb4 family updated on plan of care and expected duration. Pain level reassessed. Patient is alert, oriented x 3, equal unlabored respirations, skin warm/dry/pink. Pt is moving right sided extremities more than upon arrival. Vital Signs: 20:50 BP 162 / 97; Pulse 79; Resp 16; Temp 98.2(O); Pulse Ox 96% on R/A; Weight 93 kg (M); jb4 21:30 BP 162 / 90; Pulse 86; Resp 16; Pulse Ox 95% on R/A; jb4 23:00 BP 137 / 106; Pulse 75; Resp 22; Pulse Ox 95% on R/A; jb4 NIH Stroke Scale Scores: 20:50 NIHSS Score: 8 jb4 20:54 NIHSS Score: 10 [facility] ED Course: 20:32 Patient arrived in ED. rv1 20:34 Isaiah Ferrer MD is Attending Physician. annie 20:50 CT Stroke Brain w/o Contrast In Process Unspecified. EDMS 20:57 Rob Triana, PILLO is Primary Nurse. jb4 21:06 Triage completed. jb4 21:08 Tristan Momin MD is Hospitalizing Provider. [facility] 21:20 XRAY Chest (1 view) In Process Unspecified. EDMS 21:54 CT Head Angio In Process Unspecified. EDMS 21:54 CT Neck Angio In Process Unspecified. EDMS 07 00:06 No provider procedures requiring assistance completed. Patient admitted, IV remains in jb4 place. 00:06 Arm band placed on right wrist. jb4 Administered Medications: 04/21 21:22 Drug: foLIC Acid IVPB 1 mg Route: IVPB; Site: left antecubital; jb4 21:22 Drug: NS 0.9% IV 1000 ml Route: IV; Rate: 1 bolus; Site: left antecubital; jb4 21:22 Drug: Ativan IVP 1 mg Route: IVP; Site: left antecubital; jb4 21:22 Drug: Keppra IV 1000 mg Route: IV; Rate: per protocol; Site: left antecubital; jb4 22:32 Drug: Ativan IVP 1 mg Route: IVP; Site: left antecubital; jb4 22:32 Not Given ( Pt failed swallow evall): Aspirin PO Chewable Tablet 324 mg PO once; 81 mg jb4 tablets x 4 23:06 Drug: Aspirin VA Suppository 300 mg Route: VA; jb4 Outcome: 21:08 Decision to Hospitalize by Provider. [facility] 23:30 Admitted to Med/surg accompanied by tech, via stretcher, room 216, with chart, Report jb4 called to Shauna,RN 23:30 Condition: stable 23:30 Discharge instructions given to patient, Instructed on the need for admit, Demonstrated understanding of instructions. 04/22 00:07 Patient left the ED. shady NIH Stroke Scale - NIH Stroke Score Date: 04/21/2023 Time: 20:50 Total Score = 8 10. Dysarthria (speech clarity - read or repeat words) - 0(Normal) 11. Extinction and Inattention (visual/tactile/auditory/spatial/personal) - 0(No abnormality) 1a. Level of Consciousness (LOC) - 0(Alert) 1b. Level of Consciousness (LOC) (Month \T\ Age) - 0(Both) 1c. LOC Commands (Open \T\ Closes Eyes/Internal Medicine Physician) - 0(Both) 2. Best Gaze (Lateral Gaze Paresis) - 0(Normal) 3. Visual Field Loss - 2(Complete hemianopia) 4. Facial Palsy - 1(Minor Paralysis) 5a. Left Arm: Motor (10-second hold) - 0(No drift) 5b. Right Arm: Motor (10-second hold) - 2(Drift, some effort against gravity) 6a. Left Leg: Motor (5-second hold - always test supine) - 0(No drift) 6b. Right Leg: Motor (5-second hold - always test supine) - 2(Drift, some effort against gravity) 7. Limb Ataxia (finger/nose \T\ heel/jennings - test with eyes open) - 0(Absent) 8. Sensory Loss (pinprick arms/legs/face) - 1(Mild to moderate loss) 9. Best Language: Aphasia (description/naming/reading) - 0(No aphasia) Initials: shady NIH Stroke Scale - NIH Stroke Score Date: 04/21/2023 Time: 20:54 Total Score = 10 10. Dysarthria (speech clarity - read or repeat words) - 0(Normal) 11. Extinction and Inattention (visual/tactile/auditory/spatial/personal) - 0(No abnormality) 1a. Level of Consciousness (LOC) - 0(Alert) 1b. Level of Consciousness (LOC) (Month \T\ Age) - 0(Both) 1c. LOC Commands (Open \T\ Closes Eyes/Internal Medicine Physician) - 0(Both) 2. Best Gaze (Lateral Gaze Paresis) - 0(Normal) 3. Visual Field Loss - 0(No visual loss) 4. Facial Palsy - 1(Minor Paralysis) 5a. Left Arm: Motor (10-second hold) - 0(No drift) 5b. Right Arm: Motor (10-second hold) - 3(No effort against gravity) 6a. Left Leg: Motor (5-second hold - always test supine) - 0(No drift) 6b. Right Leg: Motor (5-second hold - always test supine) - 3(No effort against gravity) 7. Limb Ataxia (finger/nose \T\ heel/jennings - test with eyes open) - 2(Present in two limbs) 8. Sensory Loss (pinprick arms/legs/face) - 1(Mild to moderate loss) 9. Best Language: Aphasia (description/naming/reading) - 0(No aphasia) Initials: annie Signatures: Dispatcher [employer] Isaiah Erwin MD MD cha Bryson, James, RN RN jb4 Yamileth Louise rv1
--- NOTE | 2023-04-21 21:09 | EDPHYS ---
Physician Documentation [facility] Name: Shan Faye Age: 37 yrs Sex: Male : 1985 Arrival Date: 04/21/2023 Time: 20:29 Bed 17 Private MD: ED Physician Isaiah Ferrer HPI: 04/21 20:54 This 37 yrs old Male presents to ER via Unassigned with complaints of right annie sided paralysis. 20:54 The patient's problem is reported as paresthesias, weakness, in the right upper annie extremity, in the right lower extremity, in the right side of face. Onset: The symptoms/episode began/occurred at 19:30. Duration: The episode is continuous. Context: the episode(s) was witnessed, by EMS personnel, by family. The symptoms are alleviated by standing, The symptoms are aggravated by nothing. Associated signs and symptoms: The patient has no apparent associated signs or symptoms. Severity of symptoms: At their worst the symptoms were mild moderate in the emergency department the symptoms are unchanged. Patient's baseline: Neuro: alert and fully oriented. The patient has experienced similar episodes in the past, chronically, with the last episode occurring last week. Historical: - Allergies: 21:07 No Known Allergies; jb4 - Home Meds: 21:07 Keppra 750 mg Oral tab 2 tabs 2 times per day [Active]; jb4 - PMHx: 21:07 Seizure; CVA; brain disorder; jb4 - PSHx: 21:07 Cholecystectomy; jb4 - Family history:: not pertinent. ROS: 20:54 Constitutional: Negative for fever, chills, and weight loss, Eyes: Negative for injury, annie pain, redness, and discharge, ENT: Negative for injury, pain, and discharge, Neck: Negative for injury, pain, and swelling, Cardiovascular: Negative for chest pain, palpitations, and edema, Respiratory: Negative for shortness of breath, cough, wheezing, and pleuritic chest pain, Abdomen/GI: Negative for abdominal pain, nausea, vomiting, diarrhea, and constipation, Back: Negative for injury and pain, : Negative for injury, bleeding, discharge, and swelling, Skin: Negative for injury, rash, and discoloration, Psych: Negative for depression, anxiety, suicide ideation, homicidal ideation, and hallucinations, Allergy/Immunology: Negative for hives, rash, and allergies, Endocrine: Negative for neck swelling, polydipsia, polyuria, polyphagia, and marked weight changes. 20:54 MS/extremity: Positive for decreased range of motion, pain, of the face, right arm and right leg. 20:54 Neuro: Positive for seizure activity, weakness, of the right arm and right leg. Exam: 20:54 Constitutional: This is a well developed, well nourished patient who is awake, alert, annie and in no acute distress. Head/Face: Normocephalic, atraumatic. Eyes: Pupils equal round and reactive to light, extra-ocular motions intact. Lids and lashes normal. Conjunctiva and sclera are non-icteric and not injected. Cornea within normal limits. Periorbital areas with no swelling, redness, or edema. ENT: Nares patent. No nasal discharge, no septal abnormalities noted. Tympanic membranes are normal and external auditory canals are clear. Oropharynx with no redness, swelling, or masses, exudates, or evidence of obstruction, uvula midline. Mucous membranes moist. Neck: Trachea midline, no thyromegaly or masses palpated, and no cervical lymphadenopathy. Supple, full range of motion without nuchal rigidity, or vertebral point tenderness. No Meningismus. Chest/axilla: Normal chest wall appearance and motion. Nontender with no deformity. No lesions are appreciated. Cardiovascular: Regular rate and rhythm with a normal S1 and S2. No gallops, murmurs, or rubs. Normal PMI, no JVD. No pulse deficits. Respiratory: Lungs have equal breath sounds bilaterally, clear to auscultation and percussion. No rales, rhonchi or wheezes noted. No increased work of breathing, no retractions or nasal flaring. Abdomen/GI: Soft, non-tender, with normal bowel sounds. No distension or tympany. No guarding or rebound. No evidence of tenderness throughout. Back: No spinal tenderness. No costovertebral tenderness. Full range of motion. Male : Normal genitalia with no discharge or lesions. Skin: Warm, dry with normal turgor. Normal color with no rashes, no lesions, and no evidence of cellulitis. MS/ Extremity: Pulses equal, no cyanosis. Neurovascular intact. Full, normal range of motion. Psych: Awake, alert, with orientation to person, place and time. Behavior, mood, and affect are within normal limits. 20:54 Neuro: Orientation: is normal, appropriate for stated age, no acute changes, Mentation: is normal, appropriate for stated age, no acute changes, Memory: is normal, appropriate for stated age, no acute changes, Cranial nerves: facial droop noted on right, Motor: Strength is 1/5 in the right arm and right leg, Sensation: numbness, that is mild, of the right arm and right leg, Gait: not tested. seizure activity, is not displayed by the patient. 22:15 Radiologist reports: [facility] 22:15 ECG was reviewed by the Attending Physician. [facility] Vital Signs: 20:50 BP 162 / 97; Pulse 79; Resp 16; Temp 98.2(O); Pulse Ox 96% on R/A; Weight 93 kg (M); 4 21:30 BP 162 / 90; Pulse 86; Resp 16; Pulse Ox 95% on R/A; 4 23:00 BP 137 / 106; Pulse 75; Resp 22; Pulse Ox 95% on R/A; jb4 NIH Stroke Scale Scores: 20:50 NIHSS Score: 8 jb4 20:54 NIHSS Score: 10 [facility] MDM: 20:34 Patient medically screened. [facility] 21:01 Differential diagnosis: CVA, TIA, Dementia, paralysis, metabolic disorder. Data [facility] reviewed: vital signs, nurses notes, lab test result(s), EKG, radiologic studies, CT scan, plain films. Consideration of Admission/Observation Patient was admitted/placed on observation. Escalation of care including admission/observation considered. Management of patient was discussed with the following: Contact Center Consultant: dr aldo sierra. Independent interpretation of the following test(s) in the Emergency Department EKG: See my EKG interpretation above. Test considered but Not performed: CT: no mri brrain. Care significantly affected by the following chronic conditions: seizure hx. Counseling: I had a detailed discussion with the patient and/or guardian regarding: the historical points, exam findings, and any diagnostic results supporting the discharge/admit diagnosis, lab results, radiology results, the need for further work-up and treatment in the hospital. 04/21 20:43 Order name: Basic Metabolic Panel; Complete Time: 21:24 [facility] 04/21 20:43 Order name: CBC with Diff; Complete Time: 21:24 [facility] 04/21 20:43 Order name: LFT's; Complete Time: 21:24 [facility] 04/21 20:43 Order name: Magnesium; Complete Time: 21:24 [facility] 04/21 20:43 Order name: NT PRO-BNP; Complete Time: 21:24 [facility] 04/21 20:43 Order name: PT-INR; Complete Time: 21:24 [facility] 04/21 20:43 Order name: Troponin HS; Complete Time: 21:24 [facility] 04/21 20:43 Order name: Lipase; Complete Time: 21:24 [facility] 04/21 21:06 Order name: Glucose, Ancillary Testing; Complete Time: 21:24 [facility] 04/21 20:43 Order name: XRAY Chest (1 view); Complete Time: 21:41 [facility] 04/21 20:43 Order name: CT Stroke Brain w/o Contrast; Complete Time: 21:24 [facility] 04/21 20:43 Order name: CT Head Angio; Complete Time: 22:13 [facility] 04/21 20:43 Order name: CT Neck Angio; Complete Time: 22:13 [facility] 04/21 20:43 Order name: EKG; Complete Time: 20:44 [facility] 04/21 20:43 Order name: Cardiac monitoring; Complete Time: 20:57 [facility] 04/21 20:43 Order name: EKG - Nurse/Tech; Complete Time: 20:57 [facility] 04/21 20:43 Order name: IV Saline Lock; Complete Time: 20:57 [facility] 04/21 20:43 Order name: Labs collected and sent; Complete Time: 20:57 [facility] 04/21 20:43 Order name: O2 Per Protocol; Complete Time: 20:57 [facility] 04/21 20:43 Order name: O2 Sat Monitoring; Complete Time: 20:57 [facility] 04/21 20:44 Order name: Seizure Precautions; Complete Time: 20:59 [facility] EC:15 Rate is 77 beats/min. Rhythm is regular. QRS [place] is Normal. [place] interval is normal. QRS annie interval is normal. QT interval is normal. No Q waves. T waves are Normal. No ST changes noted. Clinical impression: Normal ECG and No evidence of ischemia. Interpreted by me. Reviewed by me. Administered Medications: 21:22 Drug: foLIC Acid IVPB 1 mg Route: IVPB; Site: left antecubital; jb4 21:22 Drug: NS 0.9% IV 1000 ml Route: IV; Rate: 1 bolus; Site: left antecubital; jb4 21:22 Drug: Ativan IVP 1 mg Route: IVP; Site: left antecubital; jb4 21:22 Drug: Keppra IV 1000 mg Route: IV; Rate: per protocol; Site: left antecubital; jb4 22:32 Drug: Ativan IVP 1 mg Route: IVP; Site: left antecubital; jb4 22:32 Not Given ( Pt failed swallow evall): Aspirin PO Chewable Tablet 324 mg PO once; 81 mg jb4 tablets x 4 23:06 Drug: Aspirin [place] Suppository 300 mg Route: [place]; jb4 Disposition Summary: 04/21/23 21:08 Hospitalization Ordered Hospitalization Status: Observation annie Provider: Tristan Momin cha Location: Telemetry/MedSurg (observation) annie Condition: Fair annie Problem: new annie Symptoms: have improved annie Bed/Room Type: Standard annie Room Assignment: 216(04/21/23 23:03) cg Diagnosis - John's paralysis (postepileptic) annie - Epileptic seizures related to external causes, not intractable, without status annie epilepticus Forms: - Medication Reconciliation Form annie - SBAR form annie NIH Stroke Scale - NIH Stroke Score Date: 04/21/2023 Time: 20:50 Total Score = 8 10. Dysarthria (speech clarity - read or repeat words) - 0(Normal) 11. Extinction and Inattention (visual/tactile/auditory/spatial/personal) - 0(No abnormality) 1a. Level of Consciousness (LOC) - 0(Alert) 1b. Level of Consciousness (LOC) (Month \T\ Age) - 0(Both) 1c. LOC Commands (Open \T\ Closes Eyes/Manager Printing) - 0(Both) 2. Best Gaze (Lateral Gaze Paresis) - 0(Normal) 3. Visual Field Loss - 2(Complete hemianopia) 4. Facial Palsy - 1(Minor Paralysis) 5a. Left Arm: Motor (10-second hold) - 0(No drift) 5b. Right Arm: Motor (10-second hold) - 2(Drift, some effort against gravity) 6a. Left Leg: Motor (5-second hold - always test supine) - 0(No drift) 6b. Right Leg: Motor (5-second hold - always test supine) - 2(Drift, some effort against gravity) 7. Limb Ataxia (finger/nose \T\ heel/jennings - test with eyes open) - 0(Absent) 8. Sensory Loss (pinprick arms/legs/face) - 1(Mild to moderate loss) 9. Best Language: Aphasia (description/naming/reading) - 0(No aphasia) Initials: jb4 NIH Stroke Scale - NIH Stroke Score Date: 04/21/2023 Time: 20:54 Total Score = 10 10. Dysarthria (speech clarity - read or repeat words) - 0(Normal) 11. Extinction and Inattention (visual/tactile/auditory/spatial/personal) - 0(No abnormality) 1a. Level of Consciousness (LOC) - 0(Alert) 1b. Level of Consciousness (LOC) (Month \T\ Age) - 0(Both) 1c. LOC Commands (Open \T\ Closes Eyes/Manager Printing) - 0(Both) 2. Best Gaze (Lateral Gaze Paresis) - 0(Normal) 3. Visual Field Loss - 0(No visual loss) 4. Facial Palsy - 1(Minor Paralysis) 5a. Left Arm: Motor (10-second hold) - 0(No drift) 5b. Right Arm: Motor (10-second hold) - 3(No effort against gravity) 6a. Left Leg: Motor (5-second hold - always test supine) - 0(No drift) 6b. Right Leg: Motor (5-second hold - always test supine) - 3(No effort against gravity) 7. Limb Ataxia (finger/nose \T\ heel/jennings - test with eyes open) - 2(Present in two limbs) 8. Sensory Loss (pinprick arms/legs/face) - 1(Mild to moderate loss) 9. Best Language: Aphasia (description/naming/reading) - 0(No aphasia) Initials: annie Signatures: Dispatcher [employer] EDIsaiah Stanley MD MD cha Attema, Lee, WEB PRODUCTION DESIGNER-C WEB PRODUCTION DESIGNER-Shelley1 Aracelis Hudson, PILLO RN cg Rob Triana RN RN jb4 Corrections: (The following items were deleted from the chart) 23:03 21:08 annie hooks
[2023-04-21] MEDS ORDERED: NA CHLORIDE 0.9% 1,000 ML ONE (21:19)
[2023-04-21] MEDS ORDERED: LORazepam 2 MG/ML VIAL ONE ×2 (21:19→22:32)
[2023-04-21] MEDS ORDERED: LEVETIRACETAM 500 MG/5 ML VIAL IV ONE (21:19)
[2023-04-21] MEDS ORDERED: FOLIC ACID 5 MG/ML VIAL ONE (21:20)
[2023-04-21] MEDS ORDERED: NA CHLORIDE 0.9% 100 ML ONE (21:20)
[2023-04-21 21:22] LABS: Bilirubin Direct 0.1 mg/dL (0-0.2); Bilirubin Indirect, Calculated 0.4 mg/dL (0.2-0.8); Bilirubin Total 0.5 mg/dL (0.2-1.0); Magnesium 2.3 mg/dL (1.6-2.4); Potassium 3.1 mEq/L (3.5-5.1); Protein, Total 7.9 g/dL (6.4-8.2); Troponin High Sensitivity 21.4 pg/mL (<58.9)
--- NOTE | 2023-04-21 21:32 | RAD REPORT ---
EXAM DESCRIPTION: FLORINAPro Single View04/21/2023 9:17 pm CLINICAL HISTORY: Cough COMPARISON: February 2023 FINDINGS: Mild bilateral pulmonary opacities may represent pulmonary edema or pneumonitis Heart is normal size
--- NOTE | 2023-04-21 22:04 | RAD REPORT ---
EXAM DESCRIPTION: Paulo Angio04/21/2023 9:52 pm CLINICAL HISTORY: Right-sided numbness COMPARISON: 2021 TECHNIQUE: 95 cc Isovue 370 was administered intravenously. 3D MIP reconstruction performed All CT scans are performed using dose optimization technique as appropriate and may include automated exposure control or mA/KV adjustment according to patient size. FINDINGS: The common carotid, internal carotid external carotid bilaterally are normal caliber. Vertebral arteries are unremarkable. No significant stenosis. No occlusion IMPRESSION: Unremarkable exam NASCET criteria used. Mild 0-49% stenosis Moderate 50-69% stenosis Severe 70-99% stenosis
--- NOTE | 2023-04-21 22:10 | RAD REPORT ---
EXAM DESCRIPTION: CTHead angio04/21/2023 9:52 pm CLINICAL HISTORY: Right-sided numbness COMPARISON: None TECHNIQUE: 95 cc Isovue [address] angiogram of the head was obtained. 3D MIPS reconstruction performed. All CT scans are performed using dose optimization technique as appropriate and may include automated exposure control or mA/KV adjustment according to patient size. FINDINGS: The basilar, internal carotid, anterior cerebral, middle cerebral and posterior cerebral a rteries do not demonstrate a significant abnormality An aneurysm is not seen A significant stenosis is not noted. No large vessel occlusion IMPRESSION: No significant abnormality is displayed
[2023-04-21] MEDS ORDERED: ASPIRIN 81 MG CHEWABLE TABLET ONE (22:32)
[2023-04-21] MEDS ORDERED: ASPIRIN 300 MG/SUPP ONE (23:09)
[2023-04-21] MEDS ORDERED: ONDANSETRON 4 MG/2 ML VIAL IV PRN (23:34)
[2023-04-21] MEDS ORDERED: ACETAMINOPHEN 500 MG TAB PO PRN (23:34)
--- NOTE | 2023-04-22 00:08 | P.HP ---
Certification for Inpatient Patient admitted to: Observation With expected LOS: <2 Midnights Patient will require the following post-hospital care: None Practitioner: I am a practitioner with admitting privileges, knowledge of patient current condition, hospital course, and medical plan of care. Services: Services provided to patient in accordance with Admission requirements found in Title 42 Section 412.3 of the Code of Federal Regulations Patient History Date of Service: 04/21/23 Reason for admission: Right-sided weakness History of Present Illness: 37-year-old male with history of seizure disorder, previous CVA with right-sided weakness presents to the emergency department with complaint of worsening right- sided weakness, his symptoms began at 1930. He has had similar episodes in the past, he felt like he was having "mini strokes" earlier today, he also has a history of John's paralysis. It is unclear if there was seizure activity prior to his worsening right-sided weakness. He was evaluated in the emergency department his labs were significant for potassium of 3.1 CT head was negative for acute findings head and neck angio negative for large vessel occlusion or other acute findings. ED physician discussed case with patient's neurologist who recommended against TNK at this time given his complex history, seizure disorder, history of John's paralysis and unclear story. He will be admitted under observation for further work-up/MRI. Allergies No Known Allergies Allergy (Verified 04/21/23 23:55) Home Medications: Buspirone HCl [Buspar*] 15 mg PO TID 12/25/15 Perampanel [Fycompa] 8 mg PO BEDTIME MDD 12 MG 03/01/18 levETIRAcetam [Keppra*] 750 mg PO BID 04/21/23 - Past Medical/Surgical History Diabetic: No -: anxiety -: brain disorder (one side more developed than the other) -: CVA (1993) -: depression -: seizures -: Cholecystectomy Psychosocial/ Personal History: Patient is disabled and lives with his mother who is is primary wash house worker and PO[employer] - Social History Alcohol use: No CD- Drugs: No Caffeine use: No Place of Residence: Home Review of Systems 10-point ROS is otherwise unremarkable Neurological: Weakness (Right-sided) Physical Examination - Physical Exam General: Alert, In no apparent distress, Oriented x3 HEENT: Atraumatic, PERRLA, Mucous membr. moist/pink, EOMI, Sclerae nonicteric Neck: Supple, 2+ carotid pulse no bruit, No LAD, Without JVD or thyroid abnormality Respiratory: Clear to auscultation bilaterally, Normal air movement Cardiovascular: No edema, Regular rate/rhythm, Normal S1 S2 Capillary refill: <2 Seconds Gastrointestinal: Normal bowel sounds, No tenderness Musculoskeletal: No tenderness Integumentary: No rashes Neurological: Normal gait, Normal tone, Sensation intact, Normal affect, Abnormal speech (At baseline), Abnormal strength (3/5 strength right upper and right lower extremity, drift and hit bed. Reportedly worse than baseline) - Studies Laboratory Data (last 24 hrs) 04/21/23 20:50: PT 11.7, INR 1.06 04/21/23 20:50: WBC 7.00, Hgb 15.4, Hct 46.1, Plt Count 249 04/21/23 20:50: Sodium 139, Potassium 3.1 L, BUN 9, Creatinine 0.85, Glucose 106, Magnesium 2.3, Total Bilirubin 0.5, AST 25, ALT 48, Alkaline Phosphatase 81, Lipase 29 Assessment and Plan - Plan Assessment: Right-sided weakness, rule out CVA versus John's paralysis History of seizure disorder History of CVA Plan: Right-sided weakness, rule out CVA versus John's paralysis ED physician discussed case with patient's primary neurologist, recommendation against TNK. Patient has had similar episodes in the past that have resolved spontaneously, patient is a poor historian, unclear if there is seizure activity prior to symptoms. Symptoms seem to wax and wane. MRI ordered, continue stroke work-up, aspirin, statin. History of seizure disorder Continue Keppra, other home medications. History of CVA Continue as above. DVT PPX: Lovenox Code status: Full Discharge Plan: Home Plan to discharge in: 24 Hours - Advance Directives Does patient have a Living Will: No Does patient have a Durable POA for Healthcare: No - Code Status/Comfort Care Code Status Assessed: Yes (Full code) Critical Care: No Time Spent Managing Pts Care (In Minutes): 55
[2023-04-22 00:23] VITALS: BMI 34.3
[2023-04-22] MEDS: NA CHLORIDE 0.9% 1,000 ML IV SCH ×2 (00:47→13:25)
[2023-04-22 02:55] LABS: Absolute Lymphocytes (CBC) 2.9 K/uL (0.7-4.9); Hematocrit 40.9 % (39.6-49.0); Lymphocytes % 45.2 % (15.3-44.8); MCV 82.8 fL (80-100); MPV 8.1 fL (7.6-11.3); RBC Red Blood Cell Count 4.94 M/uL (4.33-5.43)
[2023-04-22 03:14] LABS: Potassium 3.1 mEq/L (3.5-5.1); Thyroid Stimulating Hormone 3.85 uIU/mL (0.358-3.740)
[2023-04-22] MEDS: KCL 20 MEQ/100 mL IVPB 20 MEQ/100 ML BAG IV SCH ×2 (05:39→08:20)
[2023-04-22 06:33] LABS: Barbiturates NEGATIVE (NEGATIVE); Benzodiazepines NEGATIVE (NEGATIVE); Cocaine NEGATIVE (NEGATIVE); METHAMPHETAM NEGATIVE (NEGATIVE); Methadone NEGATIVE (NEGATIVE); Opiates NEGATIVE (NEGATIVE); Phencyclidine NEGATIVE (NEGATIVE); THC Cannibis NEGATIVE (NEGATIVE)
--- NOTE | 2023-04-22 07:13 | P.PN ---
Date of Service: 04/22/23 Subjective: able to move right side but still feels numb and has drift reports minimal movement on left side, worsened this morning states this intermittently occurs for some time now, can affect his right or left side. At times it's after a known seizure, at other times, seems to just occur he reports feeling when they are going to start reports 100% compliance with all his medications - keppra/ fycompa / buspar no vision changes, no nausea/vomiting, no diarrhea, no loss of bowel/bladder function, no rash, no fever ROS: 10 point ROS as noted above, otherwise negative Physical Exam: GEN: Alert, oriented, appears fatigued HEENT: Normal conjunctiva, sclera anicteric CV: Regular rate and rhythm, no edema Pulm: Nonlabored respirations on room air, clear bilaterally ABD: Soft, nontender, nondistended MSK: No joint tenderness, Integumentary: No rashes Neuro: Abnormal speech (~baseline with slight slurred speech/weak), Abnormal strength (3/5 RUE, 3/5 RLE, 3/5 LLE, 3/5 LUE) neuro exam inconsistent throughout morning. 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 Patient has had similar episodes in the past that have resolved spontaneously patient is a poor historian, unclear if there is seizure activity prior to symptoms. Symptoms seem to wax and wane. reports he has been compliant with home medications has been taking buspirone TID for months no change in meds in "a long time" no new meds, no street drugs, nothing over the counter CT Brain (04/21): No acute intracranial abnormality is seen CTA Head/neck(04/21): unremarkable MRI (04/22): ordered unable to be obtained due to seizures patient seemingly moved left arm ok with I was pulling sheet, but during exam, was resisting ROM and felt very weak Neurology consulted recommends transfer to tertiary care center, continuous EEG monitoring, eval seizure vs pseudoseizure EEG machine not working at our facility had multiple seizure episodes this morning reloaded with keppra 1gm IV, increased keppra from 750 mg BID to 1gm BID, and IV instead of PO Dr. Arreola also recommended addition of depakote, loaded 1gm, and continue on 500mg BID continue stroke work-up Continue aspirin, statin. VTE: Lovenox Code: Full Dispo: transfer to [facility] initiated
[2023-04-22] MEDS: ENOXAPARIN 40 MG/0.4 ML SQ SCH (08:20)
[2023-04-22] MEDS: ASPIRIN EC 81 MG TAB PO SCH (08:21)
[2023-04-22] MEDS ORDERED: levETIRAcetam 500 MG TAB PO SCH (09:00)
[2023-04-22] MEDS ORDERED: LORazepam 2 MG/ML VIAL IV PRN (11:40)
[2023-04-22] MEDS ORDERED: levETIRAcetam 1,000 MG in NA CHLORIDE 0.9% 100 ML IV ONE (12:00)
--- NOTE | 2023-04-22 12:02 | EKG ---
Test Date: 2023-04-21 Test Time: 20:54:54 Brain Picker: BELL MEASUREMENT RESULTS: Intervals: Rate: 77 WV: 150 QRSD: 88 QT: 388 QTc: 439 [place]: P: 53 WV: 150 QRS: 23 T: 47 INTERPRETIVE STATEMENTS: Normal sinus rhythm Normal ECG Compared to ECG 03/20/2023 12:55:28 Sinus bradycardia no longer present Electronically Signed On 04-22-23 12:01:50 CDT by Medhat Fernandes
[2023-04-22] MEDS ORDERED: VALPROATE SODIUM INJ 1,000 MG in NA CHLORIDE 0.9% 100 ML IV SCH (13:00)
[2023-04-22] MEDS ORDERED: VALPROATE SODIUM INJ 1,000 MG in NA CHLORIDE 0.9% 100 ML IV ONE (13:00)
--- NOTE | 2023-04-22 15:01 | P.DS ---
Admission Date: 04/22/23 Discharge Date: 04/24/23 Disposition: ROUTINE DISCHARGE Discharge Condition: GOOD Reason for Admission: Right-sided weakness Consultations: Neurology - Dr. Arreola Brief History of Present Illness: 37yo M, PMH: seizure disorder, previous CVA with right-sided weakness Patient presents to the emergency department with complaint of worsening right- sided weakness, his symptoms began at 1930. He has had similar episodes in the past, he felt like he was having "mini strokes" earlier today, he also has a history of John's paralysis. It is unclear if there was seizure activity prior to his worsening right-sided weakness. He was evaluated in the emergency department his labs were significant for potassium of 3.1 CT head was negative for acute findings head and neck angio negative for large vessel occlusion or other acute findings. ED physician discussed case with patient's neurologist who recommended against TNK at this time given his complex history, seizure disorder, history of John's paralysis and unclear story. 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 He was evaluate and ruled out for CVA by CT head, CTA head/neck, and MRI. The morning after admission, he was noted to have several short (10-20sec) episodes of seizure-like activity. His keppra was increased, depakote was added, he was transferred to ICU for increased monitoring. Dr. Arreola, Neurology, was consulted, and recommended transfer to tertiary care center for EEG / continous EEG monitoring to further evaluate and help discern between seizures and pseudoseizures. Patient was accepted to [facility] however there was never an available bed. After arrival to the ICU and medication changes, patient was noted to have 3 brief episodes later in the afternoon. He reported feeling them come on and alerted nursing staff. During at least one episode, he was able to speak during the seizure activity. He had no further episodes and remained stable. No seizure activity for >24hrs. His weakness resolved and he reported being back to his baseline. He stated he has gone through this before and feels his anxiety is causing these episodes. After further discussion with neurology, given his negative imaging, normal labs, resolution of weakness, and seizure-free for >24hr, patient was deemed stable for discharge home on new regimen. Patient has been diagnosed previously with John's paralysis and has intermittent episodes affecting either side of his body, and these episodes were felt to be a combination of seizure + pseudoseizures with john's paralysis. Keppra 1000mg (up from 750mg) twice daily Depakote 500mg twice daily added Continue Fycompa continue other home meds as previously prescribed. Follow up: PCP within 1 week Neurology in a few weeks He was instructed by Dr. Arreola that he should not drive a car or operatie heavy machinery for 3 months from the date of his last seizure. Physical Exam: GEN: Alert, oriented, appears fatigued HEENT: Normal conjunctiva, sclera anicteric CV: Regular rate and rhythm, no edema Pulm: Nonlabored respirations on room air, clear bilaterally ABD: Soft, nontender, nondistended MSK: No joint tenderness Integumentary: No rashes Neuro: normal speech, mild Rsided weakness, normal strength on left Vital Signs/Physical Exam: Temp Pulse Resp BP Pulse Ox 97.2 F 76 20 143/98 H 96 04/22/23 12:00 04/22/23 14:00 04/22/23 14:00 04/22/23 14:00 04/22/23 14:00 Laboratory Data at Discharge: WBC 6.50 thou/uL (4.3-10.9) 04/22/23 02:03 Hgb 14.0 g/dL (13.6-17.9) D 04/22/23 02:03 Hct 40.9 % (39.6-49.0) 04/22/23 02:03 Plt Count 226 thou/uL (152-406) 04/22/23 02:03 PT 11.7 SECONDS (9.5-12.5) 04/21/23 20:50 INR 1.06 04/21/23 20:50 Sodium 141 mEq/L (136-145) 04/22/23 02:03 Potassium 3.1 mEq/L (3.5-5.1) L 04/22/23 02:03 BUN 7 mg/dL (7-18) 04/22/23 02:03 Creatinine 0.68 mg/dL (0.70-1.30) L 04/22/23 02:03 Glucose 106 mg/dL (74-106) 04/22/23 02:03 Magnesium 2.3 mg/dL (1.6-2.4) 04/21/23 20:50 Total Bilirubin 0.5 mg/dL (0.2-1.0) 04/21/23 20:50 AST 25 U/L (15-37) 04/21/23 20:50 ALT 48 U/L (16-61) 04/21/23 20:50 Alkaline Phosphatase 81 U/L (45-117) 04/21/23 20:50 Triglycerides 124 mg/dL (<150) 04/22/23 02:03 Cholesterol 157 mg/dL (<200) 04/22/23 02:03 HDL Cholesterol 38 mg/dL (40-60) L 04/22/23 02:03 Cholesterol/HDL Ratio 4.13 04/22/23 02:03 Lipase 29 U/L (13-75) 04/21/23 20:50 Home Medications: Buspirone HCl [Buspar*] 15 mg PO TID 12/25/15 Perampanel [Fycompa] 8 mg PO BEDTIME MDD 12 MG 03/01/18 Divalproex Sodium [Depakote] 500 mg PO BID 30 Days #60 tab 04/24/23 Levetiracetam [Keppra] 1,000 mg PO BID 30 Days #60 tab 04/24/23 New Medications: Divalproex Sodium [Depakote] 500 mg PO BID 30 Days #60 tab Levetiracetam [Keppra] 1,000 mg PO BID 30 Days #60 tab Physician Discharge Instructions: Patient presented with seizure like activity and weakness - right-sided. He was evaluate and ruled out for CVA by CT head, CTA head/neck, and MRI. The morning after admission, he was noted to have several short (10-20sec) episodes of seizure-like activity. His keppra was increased, depakote was added, he was transferred to ICU for increased monitoring. Dr. Arreola, Neurology, was con sulted, and recommended transfer to tertiary care center for EEG / continous EEG monitoring to further evaluate and help discern between seizures and pseudoseizures. Patient was accepted to [facility] however there was never an available bed. After arrival to the ICU and medication changes, patient was noted to have 3 brief episodes later in the afternoon. He reported feeling them come on and alerted nursing staff. During at least one episode, he was able to speak during the seizure activity. He had no further episodes and remained stable. No seizure activity for >24hrs. His weakness resolved and he reported being back to his baseline. He stated he has gone through this before and feels his anxiety is causing these episodes. After further discussion with neurology, given his negative imaging, normal labs, resolution of weakness, and seizure-free for >24hr, patient was deemed stable for discharge home on new regimen. Patient has been diagnosed previously with John's paralysis and has intermittent episodes affecting either side of his body, and these episodes were felt to be a combination of seizure + pseudoseizures with john's paralysis. Keppra 1000mg (up from 750mg) twice daily Depakote 500mg twice daily added Continue Fycompa continue other home meds as previously prescribed. Follow up: PCP within 1 week Neurology in a few weeks He was instructed by Dr. Arreola that he should not drive a car or operatie heavy machinery for 3 months from the date of his last seizure. Followup: NONE,NONE [Primary Care Provider] - Time spent managing pt's care (in minutes): 45
[2023-04-22] MEDS ORDERED: ALPRAZOLAM 0.5 MG TABLET PO ONE (19:33)
[2023-04-22] MEDS: ATORVASTATIN 40 MG TAB PO SCH (19:57)
[2023-04-22] MEDS: levETIRAcetam 1,000 MG in NA CHLORIDE 0.9% 100 ML IV SCH (19:57)
[2023-04-22] MEDS: VALPROATE SODIUM INJ 500 MG in NA CHLORIDE 0.9% 100 ML IV SCH (19:57)
[2023-04-22] MEDS ORDERED: NA CHLORIDE 0.9% 100 ML ONE (20:03)
[2023-04-22] MEDS ORDERED: LEVETIRACETAM 500 MG/5 ML VIAL IV ONE (20:03)
[2023-04-23] MEDS: NA CHLORIDE 0.9% 1,000 ML IV SCH (02:25)
[2023-04-23 05:14] LABS: Absolute Lymphocytes (CBC) 2.6 K/uL (0.7-4.9); Hematocrit 41.8 % (39.6-49.0); Lymphocytes % 51.7 % (15.3-44.8); MCV 82.6 fL (80-100); RBC Red Blood Cell Count 5.07 M/uL (4.33-5.43)
[2023-04-23 05:34] LABS: Potassium 3.3 mEq/L (3.5-5.1)
[2023-04-23] MEDS ORDERED: POTASSIUM 25 MEQ EFFERV TAB PO ONE ×2 (05:40→19:31)
[2023-04-23] MEDS: ASPIRIN EC 81 MG TAB PO SCH (08:12)
[2023-04-23] MEDS: VALPROATE SODIUM INJ 500 MG in NA CHLORIDE 0.9% 100 ML IV SCH ×2 (08:12→20:01)
[2023-04-23] MEDS: levETIRAcetam 1,000 MG in NA CHLORIDE 0.9% 100 ML IV SCH ×2 (08:12→20:02)
[2023-04-23] MEDS: ENOXAPARIN 40 MG/0.4 ML SQ SCH (08:12)
--- NOTE | 2023-04-23 10:19 | P.PN ---
Date of Service: 04/23/23 Subjective: Feeling better today, arm strength back to normal Slept well overnight with xanax, no seizure activity noted ~3 seizures yesterday afternoon, lasting between 10-15 seconds Last seizure was ~5-6PM yesterday; Patient feels his seizures are anxiety related nursing reports at least during one of those seizures, patient was talking during it ROS: 10 point ROS as noted above, otherwise negative Physical Exam: GEN: Alert, oriented, appears fatigued HEENT: Normal conjunctiva, sclera anicteric CV: Regular rate and rhythm, no edema Pulm: Nonlabored respirations on room air, clear bilaterally ABD: Soft, nontender, nondistended Neuro: normal speech, mild Rsided weakness, normal strength on left vitals reviewed Problem List: Left and right sided weakness, R/o CVA vs John's paralysis 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 History of CVA Left and right sided weakness, R/o CVA vs John's paralysis 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 Arreola also recommended addition of depakote, loaded 1gm, and continue on 500mg BID Continue aspirin, statin. 04/23 - arm strength back to normal, no seizure activity overnight ~3 seizures yesterday afternoon, lasting between 10-15 seconds Last seizure was ~5-6PM yesterday; Patient feels his seizures are anxiety related VTE: Lovenox Code: Full Dispo: transfer to [facility] initiated Pending 24 hours without seizure, further improvement Possible downgrade from ICU in afternoon if no seizures if remains seizure free by tomorrow morning, anticipate dc home
[2023-04-23] MEDS ORDERED: LORazepam 2 MG/ML VIAL IV ONE (10:37)
--- NOTE | 2023-04-23 11:58 | RAD REPORT ---
EXAM DESCRIPTION: MRI - Brain Wo Cont - 04/23/2023 11:30 am CLINICAL HISTORY: CVA/right-sided weakness COMPARISON: April 21, 2023 CT TECHNIQUE: Axial, sagittal, and coronal magnetic resonance images of the brain were obtained. FINDINGS: Agenesis corpus callosum Old bilateral cerebellar infarctions Diffusion-weighted/ADC mapping does not reveal evidence of acute infarction. The ventricles are normal caliber. An extra-axial fluid collection is not noted. Fluid within the sinuses/mastoids is not seen IMPRESSION: No acute intracranial abnormality noted
[2023-04-23] MEDS: ATORVASTATIN 40 MG TAB PO SCH (20:01)
[2023-04-23 20:49] VITALS: O2SAT 95
--- NOTE | 2023-04-24 03:28 | CON ---
Reason For Consultation: Consultation called because of back to back seizures. History Of Present Illness: Mr. 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 He came in on with worsening righ t-sided weakness, which again is a recurrent complaint at around 7:30 in the evening and the patient came to [facility], had a negative head CT scan for acute ischemic and hemorrhagic findings. It was discussed with the emergency room physician and given the patient's multiple episodes of John's paral ysis and a history of seizures, he was not considered a candidate for TNKs. He has had the episodes that are identical multiple times. His blood work showed slightly low potassium, which he did receiv e replacements and fluids. He had a CT angiogram of the head and neck, which were negative for any l arge vessel disease, and for management of seizures. While hospitalized, the patient had multiple episodes, some apparently were epileptic and others appeared to be nonepileptic. The patien t was loaded with more Keppra, which was his base medication along with Fycompa. He was given a gram of Keppra and his dose was increased to 1000 mg twice daily. He had more episodes despite that and was then even Depakote 1 g and then placed on 500 mg twice daily. I evaluated the patient in the ICU . He is back to his baseline and his last seizure was about 24 hours ago. He communicated and sees well, moved his extremities at baseline, and he is voicing his readiness for discharge. At one point , because of the absence of EEG in the hospital, the patient was considered a candidate for transfer for higher level of care for EEG monitoring; however, a hospital bed was not available. It is noted that if the patient has additional seizures, transfer, which is initiated, will again be re-attempted . Past Medical History: 1.Depression. 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 3.Anxiety. 4.Stroke when younger. Allergies: NO KNOWN DRUG ALLERGIES. Home Medications: 1.Fycompa 8 mg at bedtime. 2.Keppra 750 mg twice daily. 3.BuSpar 15 mg 3 times daily. Past Surgical History: Cholecystectomy. Social History: The patient is currently disabled and lives with his mother at home. He works, [employer]. No alcohol, tobacco, or IV drug use. Review of Systems: He has a baseline right-sided weakness from his chronic stroke. Otherwise, he is in no acute distres s, and rest of his review of systems essentially unremarkable. Physical Examination: Vital Signs: Blood pressure 125/100, pulse 79, respiratory rate 18, temperature 97.1, oxygen saturat ion 95% on room air. Weight 205 pounds, height 5 feet 11 inches, BMI 28.6. General: Mr. Faye is resting comfortably. He is in no significant distress. HEENT: He has a high frontal bossing of forehead. He has a protuberant chin with micrognathia that is where the chin is forward, but his teeth on the lower half of his jaw are compressed inwards. Neurologic: His cranial nerves show no focal deficits. On motor exam, 4/5 strength right upper and lower extremities compared to 5/5 on the left. Sensation intact in upper and lower extremities. Exercise Physiology Professor rdination slow and intact. Reflexes are increased on the right compared to the left upper and lower extremities. He actually did an attempt at ambulation with the physical therapists and actually, he did ambulate 150 feet without an assistive device. He did not lose his balance. He did have a wide- based gait. Laboratory Studies: A complete blood count with differential is normal. Coagulation panel is normal . Chemistries: Sodium is normal at 141, potassium was low at 3.1 at admission, today corrected to 3.7; chloride 111; calcium slightly low at 8.3. TSH slightly elevated at 3.85, free T4 of 0.87. LDL cholesterol 94, HDL 38. Liver function studies are normal. Drug screen is negative. Imaging Studies: Brain MRI shows agenesis of the corpus callosum and chronic bilateral cerebellar st rokes. Assessment: Mr. Faye is a 37-year-old patient with medically refractory complex partial seizures w ith secondary generalization and history of pseudoseizures. He has also John's paralysis with worsen ing right-sided weakness, which makes him flaccid until he recovers, usually about a day or 2 to jose shlomo. He has depression and anxiety as well. Plan: 1.Keppra was increased to 1000 mg twice a day. 2.Depakote 500 mg twice a day. 3.Fycompa 8 mg at night. 4.He is in the ICU and has not had a seizure in about 24 hours, and if he remains seizure-free, will be ready for discharge home tomorrow. If he has more seizures, transfer to [place] for higher level of care as there is no EEG available. After discharge, he may follow up within a month in Dr. Samara vasques's office and have his antiepileptic medications checked. The importance of compliance was stress ed with the patient, and he should not drive a car or operate heavy machinery for 3 months from the d ate of his last seizure. MAJOR/JES Voice ID: [id number] Report ID: [id number]
[2023-04-24 05:41] LABS: Potassium 3.8 mEq/L (3.5-5.1)
[2023-04-24] MEDS ORDERED: POTASSIUM 25 MEQ EFFERV TAB PO ONE (05:45)
--- NOTE | 2023-04-24 06:43 | P.PN ---
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 History of CVA Left and right sided weakness, R/o CVA vs John's paralysis 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 Arreola also recommended addition of depakote, loaded 1gm, and continue on 500mg BID Continue aspirin, statin. 04/23 - arm strength back to normal, no seizure activity overnight ~3 seizures yesterday afternoon, lasting between 10-15 seconds Last seizure was ~5-6PM yesterday; Patient feels his seizures are anxiety related VTE: Lovenox Code: Full Dispo: transfer to [facility] initiated Pending 24 hours without seizure, further improvement Possible downgrade from ICU in afternoon if no seizures if remains seizure free by tomorrow morning, anticipate dc home
[2023-04-24] MEDS: levETIRAcetam 1,000 MG in NA CHLORIDE 0.9% 100 ML IV SCH (09:14)
[2023-04-24] MEDS: VALPROATE SODIUM INJ 500 MG in NA CHLORIDE 0.9% 100 ML IV SCH (09:15)
[2023-04-24] MEDS: ASPIRIN EC 81 MG TAB PO SCH (09:15)
[2023-04-24] MEDS: ENOXAPARIN 40 MG/0.4 ML SQ SCH (09:15)
[2023-04-24 10:11] VITALS: BP 138/100; TEMP 97
--- NOTE | 2023-04-27 06:44 | ECHO ---
HEIGHT: 5 ft 11 in WEIGHT: 205 lb 0 oz DATE OF STUDY: 04/23/[address]: Malik Bourne NP 2-DIMENSIONAL: YES M.MODE: YES DOPPLER: YES COLOR FLOW: YES TDS: PORTABLE: YES DEFINITY: BUBBLE STUDY: DIAGNOSIS: STROKE CARDIAC HISTORY: CATHERIZATION: SURGERY: PROSTHETIC VALVE: PACEMAKER: MEASUREMENTS (cm) DIASTOLIC (NORMALS) SYSTOLIC (NORMALS) IVSd 1.0 (0.6-1.2) LA Diam 3.0 (1.9-4.0) LVEF 61% LVIDd 4.0 (3.5-5.7) LVIDs 2.7 (2.0-3.5) %FS 32% LVPWd 1.1 (0.6-1.2) Ao Diam 2.4 (2.0-3.7) 2 DIMENSIONAL ASSESSMENT: RIGHT ATRIUM: NORMAL LEFT ATRIUM: NORMAL RIGHT VENTRICLE: NORMAL LEFT VENTRICLE: NORMAL TRICUSPID VALVE: MILD TRICUSPID REGURGITATION MITRAL VALVE: NORMAL PULMONIC VALVE: NORMAL AORTIC VALVE: NORMAL PERICARDIAL EFFUSION: NONE AORTIC ROOT: NORMAL LEFT VENTRICULAR WALL MOTION: NORMAL DOPPLER/COLOR FLOW: MILD TRICUSPID REGURGITATION COMMENTS: 1. NORMAL LEFT VENTRICULAR EJECTION FRACTION 55-60% 2. NORMAL WALL MOTION 3. MILD TRICUSPID REGURGITATION TECHNOLOGIST: YOSSI SNYDER
== END 2023-04-24 10:15 | disposition home or self-care (01) | DRG 101 ==
LOC: ER 20:29 → ERHOLD 23:00 → 2ND 23:32 → 3RD-ICU 04-22 12:07 → OBSVTOIN 04-22 16:23
PROVIDERS: ADMIT Hospitalist; ATTEND Hospitalist
DX: G40.509 Epileptic seizures related to external causes, not intractable, without status epilepticus (principal); I69.351 Hemiplegia and hemiparesis following cerebral infarction affecting right dominant side; G83.84 Todd's paralysis (postepileptic); R29.708 NIHSS score 8; Z90.49 Acquired absence of other specified parts of digestive tract; Z79.899 Other long term (current) drug therapy
CPT/HCPCS: 36415; 70450; 70496; 70498; 70551; 71045; 80048; 80061; 80076; 80307; 82947; 83690; 83735; 83880; 84132; 84439; 84443; 84484; 85025; 85610; 92610; 93005; 93306; 96374; 96375; 97116; 97161; 99285; G0378; J1650; J1953; J3480; J7030; Q9967

== ENCOUNTER 2023-04-30 17:43 | Emergency (ER) | payer OTHER ==
--- OUTSIDE RECORDS SUMMARY | 2023-04-30 18:13 | XMS REPORT | Continuity of Care Document ---
:1985 Author Organization [facility] t Address [address] [facility] [address] [place] [address] Care Team Providers Name Role Phone Jethro Allen Attending Clinician Unavailable Payers Payer Name Policy Type Policy Number Effective Date Expiration Date Elver yanes [place] [id number] 2015 [employer] 00:00:00 Spirit - [facility] Problems Condition Condition Condition Status Onset Resolution Last Treating Co mments Source Name Details Category Date Date Treatment Clinician Date SEIZURES SEIZURES Diagnosis Active 2011-102012-08-20 Memoria Active 10-20 17:32:00 l 08/20/2012 00:00: Jake denise [address] [id number] Type 2 Problem Active Common diabetes Spirit mellitus - [facility] with [facility] [id number] IRENE Problem Active Common (generaliz Spirit ed anxiety - CHI disorder) [facility] [id number] Current Problem Active Common moderate Spirit episode of - [facility]I major depressive [facility] disorder [facility] prior episode [id number] Bipolar Problem Active Commo n affective Spirit disorder, - CHI currently [facility] [id number] 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 Social History Social Habit Start Date Stop Date Quantity Comments Source History of Tobacco [facility] - Use [facility] Sex Assigned At [birth year] [facility] 00:[facility]00 [facility]00 [facility] Smoking Status Start Date Stop Date Source Never Smoker [facility] - [facility] Medications Ordered Filled Start Stop Current Ordering Indication Dosage Frequency Signature Comments Components Source Medication Medication Date Date Medication? Clinician (SIG) Name Name [facility]2011-10 Yes Tatyana 750 mg, 3 Mem [...] Chambers mL, Route: l Chloride 03:49: IVPB, [place] 0.9% IV 50 00 ONCE, mL Start [...] Chambers mL, Route: l Chloride 03:49: IVPB, [place] 0.9% IV 50 00 ONCE, mL Start date: 08/20/12 21:49:00, Stop date: 08/20/12 21:49:00 Depacon + 2011-10 No Terri A 500 mg, 5 Memoria Sodium 1-18 Chambers mL, Route: l Chloride 03:49: IVPB, [place] 0.9% IV 50 00 ONCE, mL Start date: 08/20/12 21:49:00, Stop date: 08/20/12 21:49:00 Depacon + 2011-10 No Terri A 500 mg, 5 Memoria Sodium 1-18 Chambers mL, Route: l Chloride 03:49: IVPB, [place] 0.9% IV 50 00 ONCE, mL Start date: 08/20/12 21:49:00, Stop date: 08/20/12 21:49:00 Depacon 2011-10 No Terri A 500 mg, 5 Memoria Sodium 1-18 Chambers mL, Route: l Chloride 03:49: IVPB, [place] 0.9% IV 50 00 ONCE, mL Start date: 08/20/12 21:49:00, Stop date: 08/20/12 21:49:00 Depacon + 2011-10 No Terri A 500 mg, 5 Memoria Sodium 1-18 Chambers mL, Route: l Chloride 03:49: IVPB, [place] 0.9% IV 50 00 ONCE, mL Start [...] Chambers mL, Route: l Chloride 03:49: IVPB, [place] 0.9% IV 50 00 ONCE, mL Start date: 08/20/12 21:49:00, Stop date: 08/20/12 21:49:00 Depakote 2011-10 No Tatyana 500 mg, Memor ia 1-18 Jessica Route: IV, l 03:17: Jose David ONCE, [place] 00 Dosing Weight 72.727, kg, Start date: 08/20/12 21:17:00, Stop date: 08/20/12 21:17:00 Depakote 2011-10 No Tatyana 500 mg, Memor ia 1-18 Jessica Route: IV, l 03:17: Jose David ONCE, [place] 00 Dosing Weight 72.727, kg, Start date: [...] Route: IV, l 03:17: Jose David ONCE, [place] 00 Dosing Weight 72.727, kg, Start date: 08/20/12 21:17:00, Stop date: 08/20/12 21:17:00 Depakote 2011-10 No Tatyana 500 mg, Memor ia 10-21 Jessica Route: IV, l 03:17: Jose David ONCE, [place] 00 Dosing Weight 72.727, kg, Start date: 08/20/12 21:17:00, Stop date: 08/20/12 21:17:00 Depakote 2011-10 No Tatyana 500 mg, Memor ia 18 Jessica Route: IV, l 03:17: Jose David ONCE, [place] 00 Dosing Weight 72.727, kg, Start date: [...] tab, PO, l tablet, 22:02: BID, 30 [place] extended 13 tab, release Substituti on Allowed, ERTAB Depakote ER 2011-10 Yes 500 mg, 1 M emoria 500 mg oral 1-17 tab, PO, l tablet, 22:02: BID, 30 [place] extended 13 tab, release Substituti on Allowed, ERTAB Depakote ER 2011-10 Yes 500 mg, 1 M emoria 500 mg oral 1-17 tab, PO, l tablet, 22:02: BID, 30 [place] extended 13 tab, release Substituti on Allowed, ERTAB Depakote ER 2011-10 Yes 500 mg, 1 M emoria 500 mg oral 1-17 tab, PO, l tablet, 22:02: BID, 30 [place] extended 13 tab, release Substituti on Allowed, ERTAB Depakote ER 2011-10 Yes 500 mg, 1 M emoria 500 mg oral 1-17 tab, PO, l tablet, 22:02: BID, 30 [place] extended 13 tab, release Substituti on Allowed, ERTAB Depakote ER 2011-10 Yes 500 mg, 1 M emoria 500 mg oral 1-17 tab, PO, l tablet, 22:02: BID, 30 [place] extended 13 tab, release Substituti on Allowed, ERTAB Depakote ER 2011-10 Yes 500 mg, 1 M emoria 500 mg oral 1-17 tab, PO, l tablet, 22:02: BID, 30 [place] extended 13 tab, release Substituti on Allowed, [...] BID Fycompa 10 Common MG MG MG [facility] BusPIRone BusPIRone No 1{table TID BusPIRone Common HCl 5 MG HCl 5 MG t} HCl 5 MG Spi rit [facility] Lantus 100 Lantus 100 No BID Lantus 100 Common UNIT/ML UNIT/ML UNIT/ML [facility] Citalopram Citalopram No 1{table QD Citalopram Common Hydrobromid Hydrobromid t} Hydrobromi Spirit e 20 MG e 20 MG de 20 MG - [facility] Latuda 20 Latuda 20 No 1{table QD Latuda 20 Common MG MG t} MG [facility] Keppra Keppra No Keppra Common [facility] Fycompa 10 Fycompa 10 No BID Fycompa 10 MG MG MG Lantus 100 Lantus 100 No BID Lantus 100 UNIT/ML UNIT/ML UNIT/ML Eliquis 5 Eliquis 5 No 1{table BID Eliquis 5 MG MG t} MG Vital Signs Vital Name Observation Time Observation Value Comments Source height 2020-10-15 10:20:00 65 [in_i] [facility] weight 2020-10-15 10:20:00 180 [lb_av] [facility] temperature 2020-10-15 10:20:00 98.7 [degF] [facility] bmi 2020-10-15 10:20:00 29.95 kg/m2 [facility] blood pressure 2020-10-15 10:20:00 131 mm[Hg] [facility] - systolic [facility] blood pressure 2020-10-15 10:20:00 74 mm[Hg] [facility] - diastolic [facility] Weight 2012-08-20 21:07:00 [facility] Height 2012-08-20 21:07:00 165.10 cm [facility] Procedures This patient has no known procedures. Encounters Start End Encounter Admission Attending Care Care Encounter Source Date/Time Date/Time Type Type Clinicians Facility Department ID 2023-04-22 [facility] [id number] [facility] 00:00:00 Encounter [facility] 2023-03-02 Outpatient CBRIDGE CBRIDGE [id number] [facility] 09:57:18 [id number] dge [id number] 2022-12-04 Out[facility] [id number] Common 11:14:01 [facility] [id number] [facility] 2022-07-02 Outpatient [facility] [id number] [place] 04:48:[id number] [facility] 2021-10-29 Outpatient Allen, [facility] [id number] Common 12:21:25 [facility] [id number] [facility] 2021-10-29 Outpatient Allen, [facility] [id number] Common 12:19:51 [facility] [id number] [facility] 2021-10-29 Outpatient Allen, [facility] [id number] Common 12:16:00 [facility] [id number] [facility] 2020-10-15 2020-10-15 OFFICE [facility] [id number] Co mmon 00:00:00 00:00:00 VISIT NEW Spir it PT LEVEL 3 [facility] 2020-09-25 2020-09-25 (TEL) [facility] [id number] Co mmon 00:00:00 00:00:00 [facility] 2012-08-20 2012-08-20 Emergency nullFlavo [facility] [id number] Memoria 15:06:00 23:52:00 r Medical 00 l [facility] 2012-08-20 2012-08-20 Emergency nullFlavo [facility] [id number] Memoria 15:06:00 23:52:00 r Medical 00 l [facility] Results Test Description Test Time Test Comments Results Result Comments Source CHEMISTRY 2012-08-20 22:46:00 Test Item Value Reference Range Interpretation Comme nts Valproic Acid Lvl (test code = Valproic Acid Lvl) 128 50-1 00 [facility]JC[facility]244[facility]-34 22:46:00 Test Item Value Reference Range Interpretation Comments Valproic Acid Lvl (test code = Valproic 128 50-100 H Acid Lvl) [facility] BrookJvcdmqoZXTLCTZYI7553-88-26 22:46:00 Test Item Value Reference Range Interpretation Comments Valproic Acid Lvl (test code = Valproic 128 50-100 H Acid Lvl) [facility] BrookWrszstwWINAOLEBS1689-60-93 22:46:00 Test Item Value Reference Range Interpretation Comments Valproic Acid Lvl (test code = Valproic 128 50-100 H Acid Lvl) [facility] BrookGzihgzaKXNOXOBYD2791-23-63 22:46:00 Test Item Value Reference Range Interpretation Comments Valproic Acid Lvl (test code = Valproic 128 50-100 H Acid Lvl) [facility] BrookDsyruaxCTKCATTQN4812-89-52 22:46:00 Test Item Value Reference Range Interpretation Comments Valproic Acid Lvl (test code = Valproic 128 50-100 H Acid Lvl) [facility] BrookPifkjyxZRCUMHNLU2447-58-28 22:46:00 Test Item Value Reference Range Interpretation Comments Valproic Acid Lvl (test code = Valproic 128 50-100 H Acid Lvl) [facility] BrookBtrcyezJMFDTXZWT5100-60-97 22:46:00 Test Item Value Reference Range Interpretation Comments Valproic Acid Lvl (test code = Valproic 128 50-100 H Acid Lvl) [facility] BrookTsyalvxIRHGRGQER9878-35-51 22:46:00 Test Item Value Reference Range Interpretation Comments Valproic Acid Lvl (test code = Valproic 128 50-100 H Acid Lvl) [facility] BrookUlohgveNTMTTEUSZ7946-99-14 22:46:00 Test Item Value Reference Range Interpretation Comments Valproic Acid Lvl (test code = Valproic 128 50-100 H Acid Lvl) [facility] BrookDmetsbkGDYFYWRND6129-76-45 22:46:00 Test Item Value Reference Range Interpretation Comments Valproic Acid Lvl (test code = Valproic 128 50-100 H Acid Lvl) [facility] CenterFjtkmufIAPUNAUSDL8744-47-11 22:42:00 Test Item Value Reference Range Interpretation Comments Segs (test code = Segs) 62.0 45.0-75.[address] [facility] CenterGclyarbKGIMZROOPR2376-46-35 22:42:00 Test Item Value Reference Range Interpretation Comments MPV (test code = MPV) 9.0 7.4-10.[address] [facility] CenterAlzrizxXSHZFUAEPS6303-36-28 22:42:00 Test Item Value Reference Range Interpretation Comments MCH (test code = MCH) 30.3 pg 27.0-31.[address] [facility] CenterZzyotwzNTCGMCQDWS8038-97-48 22:42:00 Test Item Value Reference Range Interpretation Comments MCHC (test code = MCHC) 33.5 32.0-36.[address] [facility] CenterIoqixewZOCAWIJDVA0437-97-30 22:42:00 Test Item Value Reference Range Interpretation Comments Platelet (test code = Platelet) 204 133-[address] [facility] [facility] CenterPfelroxNUQJDCSXRT1275-96-96 22:42:00 Test Item Value Reference Range Interpretation Comments RDW (test code = RDW) 12.0 11.5-14.[address] [facility] CenterAojkdmyZFCXHGLQCT5678-14-74 22:42:00 Test Item Value Reference Range Interpretation Comments RBC (test code = RBC) 4.38 4.70-6.[address] [facility] CenterQenmibuFUKJVNCCPF0170-49-88 22:42:00 Test Item Value Reference Range Interpretation Comments WBC (test code = WBC) 8.0 3.7-10.[address] [facility] CenterQinpqusTBBJZRJGQG1606-09-39 22:42:00 Test Item Value Reference Range Interpretation Comments MCV (test code = MCV) 90.5 80.0-94.[address] [facility] CenterGzrgjaxDDSYUEIFQL1483-48-84 22:42:00 Test Item Value Reference Range Interpretation Comments Hgb (test code = Hgb) 13.3 14.0-18.0 L [facility] BrookOelsqgzWUDPEIYZH0224-64-88 22:42:00 Test Item Value Reference Range Interpretation Comments Sodium Lvl (test code = Sodium Lvl) 140 135-[address] [facility] [facility] CenterOhjissvNVDUDLYFTF1802-15-06 22:42:00 Test Item Value Reference Range Interpretation Comments Hct (test code = Hct) 39.7 42.0-54.0 L [facility] BrookSltrdepWUWKZCTZE0615-72-01 22:42:00 Test Item Value Reference Range Interpretation Comments BUN (test code = BUN) 13 7-22 N [facility] BrookMnbfjgvIWRIPIPXH6897-88-62 22:42:00 Test Item Value Reference Range Interpretation Comments Glucose Lvl (test code = Glucose Lvl) 83 70-99 N [facility] BrookNmgblhwHZHYRHYMZ2489-91-13 22:42:00 Test Item Value Reference Range Interpretation Comments Creatinine Lvl (test code = Creatinine 0.7 0.5-1.4 N Lvl) [facility] BrookDrqvzahHCTAJAWLU4343-03-47 22:42:00 Test Item Value Reference Range Interpretation Comments Calcium Lvl (test code = Calcium Lvl) 9.3 8.5-10.5 N [facility] BrookYwwygucJVNFSEIJN5751-45-12 22:42:00 Test Item Value Reference Range Interpretation Comments CO2 (test code = CO2) 31 24-32 N [facility] BrookKpyqvxeXHWWIXTFF6966-82-14 22:42:00 Test Item Value Reference Range Interpretation Comments AGAP (test code = AGAP) 11.0 10.0-20.0 N [facility] BrookNahvqdyPFRFGESAL8742-46-57 22:42:00 Test Item Value Reference Range Interpretation Comments eGFR (test code = eGFR) 131 [facility] BrookSaucmpfYHUMFZIOS1908-24-27 22:42:00 Test Item Value Reference Range Interpretation Comments Sodium Lvl (test code = Sodium Lvl) 140 135-145 N [facility] BrookJqovpnkDLHTTWMDV8158-59-37 22:42:00 Test Item Value Reference Range Interpretation Comments Creatinine Lvl (test code = Creatinine 0.7 0.5-1.4 N Lvl) [facility] BrookJqbqfbbQZCKDQJWS0515-13-48 22:42:00 Test Item Value Reference Range Interpretation Comments Potassium Lvl (test code = Potassium 5.0 3.5-5.1 N Lvl) [facility] BrookJtrqcwpUWNFEDKDF6102-07-01 22:42:00 Test Item Value Reference Range Interpretation Comments Chloride Lvl (test code = Chloride Lvl) 103 95-109 N [facility] BrookJqpmkfjVBCVOZDWU1351-02-25 22:42:00 Test Item Value Reference Range Interpretation Comments Phosphorus (test code = Phosphorus) 4.7 2.5-4.5 H [facility] BrookSqxvmqjDZKVDIYCJ5227-77-02 22:42:00 Test Item Value Reference Range Interpretation Comments Magnesium Lvl (test code = Magnesium 1.8 1.8-2.4 N Lvl) [facility] BrookNsivrtlHPMBXCKSI5293-28-06 22:42:00 Test Item Value Reference Range Interpretation Comments Potassium Lvl (test code = Potassium 5.0 3.5-5.1 N Lvl) [facility] CenterBtyoyqvIWWFCKYOZD1963-24-68 22:42:00 Test Item Value Reference Range Interpretation Comments Basophils # (test code 0.1 See_Comment N [Aut omated message] The = Basophils #) system which generated this result tra nsmitted reference range : <=0.2. The reference r terri was not used to int erpret this result as normal/abnormal . [facility] CenterEceebfdFAOLNOPHMJ2875-55-48 22:42:00 Test Item Value Reference Range Interpretation Comments Lymphocytes # (test code = Lymphocytes 2.5 1.0-5.5 N #) [facility] CenterHpqquqiKJBWMDBJZO4238-44-75 22:42:00 Test Item Value Reference Range Interpretation Comments Basophils (test code = 0.7 See_Comment N [Aut omated message] The Basophils) system which ge nerated this result tra nsmitted reference range : <=1.0. The reference r terri was not used to int erpret this result as normal/abnormal . [facility] CenterCbubaglOPAXQAXPVQ0719-91-54 22:42:00 Test Item Value Reference Range Interpretation Comments Monocytes # (test code 0.4 See_Comment N [Aut omated message] The = Monocytes #) system which generated this result tra nsmitted reference range : <=0.8. The reference r terri was not used to int erpret this result as normal/abnormal . [facility] CenterSftjposMROMLJFNYP8761-75-23 22:42:00 Test Item Value Reference Range Interpretation Comments Segs-Bands # (test code = Segs-Bands #) 4.9 1.5-8.[address] [facility] CenterNljwduxIBSXRRUBOP0737-99-05 22:42:00 Test Item Value Reference Range Interpretation Comments Eosinophils (test code = 1.0 See_Comment N [A utomated message] The Eosinophils) system which ge nerated this result tra nsmitted reference range : <=4.0. The reference r terri was not used to int erpret this result as normal/abnormal . [facility] CenterFjakrxsOKBEPEWHSE8892-80-63 22:42:00 Test Item Value Reference Range Interpretation Comments Eosinophils # (test code 0.1 See_Comment N [A utomated message] The = Eosinophils #) system whic h generated this result tra nsmitted reference range : <=0.5. The reference r terri was not used to int erpret this result as normal/abnormal . [facility] CenterTuipruoQLZXLMRUMO3329-09-95 22:42:00 Test Item Value Reference Range Interpretation Comments Monocytes (test code = Monocytes) 5.0 2.0-12.[address] [facility] CenterKhigxdlOYJEYJGUBR8266-99-85 22:42:00 Test Item Value Reference Range Interpretation Comments Lymphocytes (test code = Lymphocytes) 31.3 20.0-40.[address] [facility] CenterUxmuadcWBYCEYMAWX7518-17-43 22:42:00 Test Item Value Reference Range Interpretation Comments Segs (test code = Segs) 62.0 45.0-75.0 N [facility] BrookYjtykriIVUGNOSEG5105-82-80 22:42:00 Test Item Value Reference Range Interpretation Comments Chloride Lvl (test code = Chloride Lvl) 103 95-[address] [facility] CenterLdvgxuwVIRNBALYOA9198-36-19 22:42:00 Test Item Value Reference Range Interpretation Comments MPV (test code = MPV) 9.0 7.4-10.[address] [facility] CenterRmrrelsRFDYUIBTPH6931-99-43 22:42:00 Test Item Value Reference Range Interpretation Comments MCH (test code = MCH) 30.3 pg 27.0-31.[address] [facility] CenterJwisikvWIPPWXBFFM9063-45-38 22:42:00 Test Item Value Reference Range Interpretation Comments MCHC (test code = MCHC) 33.5 32.0-36.[address] [facility] CenterYwpipurHBCENKQWLY7623-05-28 22:42:00 Test Item Value Reference Range Interpretation Comments Platelet (test code = Platelet) 204 133-[address] [facility] [facility] CenterYbcrmlzBTGGXKDHWC9665-20-98 22:42:00 Test Item Value Reference Range Interpretation Comments RDW (test code = RDW) 12.0 11.5-14.[address] [facility] CenterJojluniASLDPDGGBR9162-12-81 22:42:00 Test Item Value Reference Range Interpretation Comments RBC (test code = RBC) 4.38 4.70-6.[address] [facility] CenterBmajbzoWVWKGNRXDZ4125-12-54 22:42:00 Test Item Value Reference Range Interpretation Comments WBC (test code = WBC) 8.0 3.7-10.[address] [facility] CenterFbvbyhhKZPFYJJHYM3070-82-54 22:42:00 Test Item Value Reference Range Interpretation Comments MCV (test code = MCV) 90.5 80.0-94.[address] [facility] CenterPcyylbxSDWMUHTQIN4114-03-05 22:42:00 Test Item Value Reference Range Interpretation Comments Hgb (test code = Hgb) 13.3 14.0-18.[address] [facility] CenterDxdqndgJLMFYATEPU0063-73-30 22:42:00 Test Item Value Reference Range Interpretation Comments Hct (test code = Hct) 39.7 42.0-54.0 L [facility] BrookGwgzhkeXQGHLYLFR0108-07-53 22:42:00 Test Item Value Reference Range Interpretation Comments Phosphorus (test code = Phosphorus) 4.7 2.5-4.5 H [facility] BrookMivzyvrLYUMYZHTH8871-38-42 22:42:00 Test Item Value Reference Range Interpretation Comments BUN (test code = BUN) 13 7-22 N [facility] BrookQqrljfoRLSHBIHVS4738-13-62 22:42:00 Test Item Value Reference Range Interpretation Comments Glucose Lvl (test code = Glucose Lvl) 83 70-99 N [facility] BrookFjyjbpwGOXVBRAZA7953-70-32 22:42:00 Test Item Value Reference Range Interpretation Comments Calcium Lvl (test code = Calcium Lvl) 9.3 8.5-10.5 N [facility] BrookWqrxrgnAACWHFTHN3884-70-44 22:42:00 Test Item Value Reference Range Interpretation Comments Magnesium Lvl (test code = Magnesium 1.8 1.8-2.4 N Lvl) [facility] BrookJivcwubPKSDWCZZQ2684-52-19 22:42:00 Test Item Value Reference Range Interpretation Comments CO2 (test code = CO2) 31 24-32 N [facility] BrookJytidphVYRLUCXXN8271-30-26 22:42:00 Test Item Value Reference Range Interpretation Comments AGAP (test code = AGAP) 11.0 10.0-20.0 N [facility] BrookLhtmwgiIJEDSFZPQ3451-22-93 22:42:00 Test Item Value Reference Range Interpretation Comments eGFR (test code = eGFR) 131 [facility] BrookIicyylzSCXNZJUEK6704-40-62 22:42:00 Test Item Value Reference Range Interpretation Comments Sodium Lvl (test code = Sodium Lvl) 140 135-145 N [facility] BrookXqgteiyIYZPSTWQN1125-57-20 22:42:00 Test Item Value Reference Range Interpretation Comments Creatinine Lvl (test code = Creatinine 0.7 0.5-1.4 N Lvl) [facility] BrookTomshuxKHOZUHXVO7659-58-42 22:42:00 Test Item Value Reference Range Interpretation Comments Potassium Lvl (test code = Potassium 5.0 3.5-5.1 N Lvl) [facility] BrookJgqqvwvAWRSZRGBZ6668-15-80 22:42:00 Test Item Value Reference Range Interpretation Comments Chloride Lvl (test code = Chloride Lvl) 103 95-109 N [facility] BrookPmaioteTWCCOJYSB8664-72-99 22:42:00 Test Item Value Reference Range Interpretation Comments Phosphorus (test code = Phosphorus) 4.7 2.5-4.5 H [facility] BrookDtmgmbiSMFKDGVLP4256-66-09 22:42:00 Test Item Value Reference Range Interpretation Comments Magnesium Lvl (test code = Magnesium 1.8 1.8-2.4 N Lvl) [facility] CenterMlpcjqaQQFMKTSGVM2780-19-05 22:42:00 Test Item Value Reference Range Interpretation Comments Basophils # (test code 0.1 See_Comment N [Aut omated message] The = Basophils #) system which generated this result tra nsmitted reference range : <=0.2. The reference r terri was not used to int erpret this result as normal/abnormal . [facility] CenterDyfkqoxLHXVBNVCOB8293-10-95 22:42:00 Test Item Value Reference Range Interpretation Comments Basophils # (test code 0.1 See_Comment N [Aut omated message] The = Basophils #) system which generated this result tra nsmitted reference range : <=0.2. The reference r terri was not used to int erpret this result as normal/abnormal . [facility] CenterIsyllehTTHITGXKDP7218-12-79 22:42:00 Test Item Value Reference Range Interpretation Comments Lymphocytes # (test code = Lymphocytes 2.5 1.0-5.5 N #) [facility] CenterRrcujipBNULJALBWM4147-69-48 22:42:00 Test Item Value Reference Range Interpretation Comments Basophils (test code = 0.7 See_Comment N [Aut omated message] The Basophils) system which ge nerated this result tra nsmitted reference range : <=1.0. The reference r terri was not used to int erpret this result as normal/abnormal . [facility] CenterFdfnkyyUZFEDACZAK5889-79-23 22:42:00 Test Item Value Reference Range Interpretation Comments Monocytes # (test code 0.4 See_Comment N [Aut omated message] The = Monocytes #) system which generated this result tra nsmitted reference range : <=0.8. The reference r terri was not used to int erpret this result as normal/abnormal . [facility] CenterEgizjhyMGEMZLGXTK0136-51-71 22:42:00 Test Item Value Reference Range Interpretation Comments Segs-Bands # (test code = Segs-Bands #) 4.9 1.5-8.[address] [facility] CenterVngkrahLDDIXZSFYI3745-94-21 22:42:00 Test Item Value Reference Range Interpretation Comments Eosinophils (test code = 1.0 See_Comment N [A utomated message] The Eosinophils) system which ge nerated this result tra nsmitted reference range : <=4.0. The reference r terri was not used to int erpret this result as normal/abnormal . [facility] CenterGxbesevBVWMFCJHDE8122-08-06 22:42:00 Test Item Value Reference Range Interpretation Comments Eosinophils # (test code 0.1 See_Comment N [A utomated message] The = Eosinophils #) system whic h generated this result tra nsmitted reference range : <=0.5. The reference r terri was not used to int erpret this result as normal/abnormal . [facility] CenterXxjxkctNGOFLSVNQC1682-43-68 22:42:00 Test Item Value Reference Range Interpretation Comments Monocytes (test code = Monocytes) 5.0 2.0-12.[address] [facility] CenterQwevxosQXCPTVKSAE3777-25-28 22:42:00 Test Item Value Reference Range Interpretation Comments Lymphocytes (test code = Lymphocytes) 31.3 20.0-40.[address] [facility] CenterUupfldyYPVGIYJSNA0027-46-31 22:42:00 Test Item Value Reference Range Interpretation Comments Segs (test code = Segs) 62.0 45.0-75.[address] [facility] CenterLdxknlgQRKWKZWMXP4915-41-06 22:42:00 Test Item Value Reference Range Interpretation Comments MPV (test code = MPV) 9.0 7.4-10.[address] [facility] CenterMvubbufCJEHRXJNVP1279-67-48 22:42:00 Test Item Value Reference Range Interpretation Comments Lymphocytes # (test code = Lymphocytes 2.5 1.0-5.5 N #) [facility] CenterFcxjgjfEJAOZCFGWE1236-41-45 22:42:00 Test Item Value Reference Range Interpretation Comments MCH (test code = MCH) 30.3 pg 27.0-31.[address] [facility] CenterUlrxdwjTUZRSDZRJE0448-93-34 22:42:00 Test Item Value Reference Range Interpretation Comments MCHC (test code = MCHC) 33.5 32.0-36.[address] [facility] CenterSmxwsjjJLFRDHUZDV8910-92-80 22:42:00 Test Item Value Reference Range Interpretation Comments Platelet (test code = Platelet) 204 133-[address] [facility] [facility] CenterVhsezmiDZYWUHVVKF0197-71-76 22:42:00 Test Item Value Reference Range Interpretation Comments RDW (test code = RDW) 12.0 11.5-14.[address] [facility] CenterEfcyeqfTOONANOKNS5415-14-38 22:42:00 Test Item Value Reference Range Interpretation Comments RBC (test code = RBC) 4.38 4.70-6.[address] [facility] CenterMmtwooiNXSGFHQLKT8575-01-84 22:42:00 Test Item Value Reference Range Interpretation Comments WBC (test code = WBC) 8.0 3.7-10.[address] [facility] CenterFqephwhXSXODAZOAX2511-97-58 22:42:00 Test Item Value Reference Range Interpretation Comments MCV (test code = MCV) 90.5 80.0-94.[address] [facility] CenterPkzlflaEKNTRNHVMD6175-36-84 22:42:00 Test Item Value Reference Range Interpretation Comments Hgb (test code = Hgb) 13.3 14.0-18.[address] [facility] CenterVqvxswcNNPTMHSCKB6713-25-73 22:42:00 Test Item Value Reference Range Interpretation Comments Hct (test code = Hct) 39.7 42.0-54.[address] [facility] CenterOcdwgnbZYHWBNAYYG5259-37-89 22:42:00 Test Item Value Reference Range Interpretation Comments Basophils (test code = 0.7 See_Comment N [Aut omated message] The Basophils) system which ge nerated this result tra nsmitted reference range : <=1.0. The reference r terri was not used to int erpret this result as normal/abnormal . [facility]VsfhfsuQGZABIOEA4369-98-48 22:42:00 Test Item Value Reference Range Interpretation Comments BUN (test code = BUN) 13 7-22 N [facility] BrookPrjeiapLOWWGOFZI0947-67-32 22:42:00 Test Item Value Reference Range Interpretation Comments Glucose Lvl (test code = Glucose Lvl) 83 70-99 N [facility] BrookTfohzabJJNOUGTYL6551-10-70 22:42:00 Test Item Value Reference Range Interpretation Comments Calcium Lvl (test code = Calcium Lvl) 9.3 8.5-10.5 N [facility] BrookQaihsqvCNKRANCNM5337-61-55 22:42:00 Test Item Value Reference Range Interpretation Comments CO2 (test code = CO2) 31 24-[address] [facility] CenterYgkcpiaMFJKZZQCQO5428-08-01 22:42:00 Test Item Value Reference Range Interpretation Comments Monocytes # (test code 0.4 See_Comment N [Aut omated message] The = Monocytes #) system which generated this result tra nsmitted reference range : <=0.8. The reference r terri was not used to int erpret this result as normal/abnormal . [facility] BrookYvudamyFQBLFYPPU1967-47-99 22:42:00 Test Item Value Reference Range Interpretation Comments AGAP (test code = AGAP) 11.0 10.0-20.0 N [facility] BrookFyeftalDWJOQCCHE5957-43-58 22:42:00 Test Item Value Reference Range Interpretation Comments eGFR (test code = eGFR) 131 [facility] BrookUmubmwcTDBTFFYOT2176-58-32 22:42:00 Test Item Value Reference Range Interpretation Comments Sodium Lvl (test code = Sodium Lvl) 140 135-145 N [facility] BrookOynkmopBBGMCYTQF8987-92-05 22:42:00 Test Item Value Reference Range Interpretation Comments Creatinine Lvl (test code = Creatinine 0.7 0.5-1.4 N Lvl) [facility] BrookOsksugpBJSTDGWVK1692-35-69 22:42:00 Test Item Value Reference Range Interpretation Comments Potassium Lvl (test code = Potassium 5.0 3.5-5.1 N Lvl) [facility] BrookTiygjunJSEDOKBVK6887-69-77 22:42:00 Test Item Value Reference Range Interpretation Comments Chloride Lvl (test code = Chloride Lvl) 103 95-109 N [facility] BrookNmuhdxtSWNRDPSBN7436-52-02 22:42:00 Test Item Value Reference Range Interpretation Comments Phosphorus (test code = Phosphorus) 4.7 2.5-4.5 H [facility] BrookDsdalxeMCKDVSGYS8034-26-74 22:42:00 Test Item Value Reference Range Interpretation Comments Magnesium Lvl (test code = Magnesium 1.8 1.8-2.4 N Lvl) [facility] CenterGowetivMAYGLWUTDT0061-90-25 22:42:00 Test Item Value Reference Range Interpretation Comments Basophils # (test code 0.1 See_Comment N [Aut omated message] The = Basophils #) system which generated this result tra nsmitted reference range : <=0.2. The reference r terri was not used to int erpret this result as normal/abnormal . [facility] CenterOlsjexqNZQDXNCRWX4644-14-93 22:42:00 Test Item Value Reference Range Interpretation Comments Lymphocytes # (test code = Lymphocytes 2.5 1.0-5.5 N #) [facility] CenterVqwhddkWDOURURNIF6970-69-08 22:42:00 Test Item Value Reference Range Interpretation Comments Segs-Bands # (test code = Segs-Bands #) 4.9 1.5-8.[address] [facility] CenterQnqyoosTRSNZBIGXX8795-49-79 22:42:00 Test Item Value Reference Range Interpretation Comments Basophils (test code = 0.7 See_Comment N [Aut omated message] The Basophils) system which ge nerated this result tra nsmitted reference range : <=1.0. The reference r terri was not used to int erpret this result as normal/abnormal . [facility] CenterYmsgcfzFXLMKQGFMZ4028-74-15 22:42:00 Test Item Value Reference Range Interpretation Comments Monocytes # (test code 0.4 See_Comment N [Aut omated message] The = Monocytes #) system which generated this result tra nsmitted reference range : <=0.8. The reference r terri was not used to int erpret this result as normal/abnormal . [facility] CenterUvqsldqCIHJGELZKG1975-85-28 22:42:00 Test Item Value Reference Range Interpretation Comments Segs-Bands # (test code = Segs-Bands #) 4.9 1.5-8.[address] [facility] CenterZyvizzgHVUGIVKTIX0892-65-70 22:42:00 Test Item Value Reference Range Interpretation Comments Eosinophils (test code = 1.0 See_Comment N [A utomated message] The Eosinophils) system which ge nerated this result tra nsmitted reference range : <=4.0. The reference r terri was not used to int erpret this result as normal/abnormal . [facility] CenterRguyvekJQHNFXVKHT8848-00-12 22:42:00 Test Item Value Reference Range Interpretation Comments Eosinophils # (test code 0.1 See_Comment N [A utomated message] The = Eosinophils #) system whic h generated this result tra nsmitted reference range : <=0.5. The reference r terri was not used to int erpret this result as normal/abnormal . [facility] CenterJcqdiirOSCILHOFUL8664-97-30 22:42:00 Test Item Value Reference Range Interpretation Comments Monocytes (test code = Monocytes) 5.0 2.0-12.[address] [facility] CenterJeyfjhwCNSTGQPPQH4248-21-35 22:42:00 Test Item Value Reference Range Interpretation Comments Lymphocytes (test code = Lymphocytes) 31.3 20.0-40.[address] [facility] CenterIqcwfmtFGDEWTWHVV9536-07-28 22:42:00 Test Item Value Reference Range Interpretation Comments Segs (test code = Segs) 62.0 45.0-75.[address] CenterKmnseemMZYXRAYLLL1516-89-23 22:42:00 Test Item Value Reference Range Interpretation Comments MPV (test code = MPV) 9.0 7.4-10.[address] [facility] CenterQciuzerGDWFCAQSKB6367-95-56 22:42:00 Test Item Value Reference Range Interpretation Comments MCH (test code = MCH) 30.3 pg 27.0-31.[address] [facility] CenterHnrsvnsIQTKSLMESV4064-85-65 22:42:00 Test Item Value Reference Range Interpretation Comments Eosinophils (test code = 1.0 See_Comment N [A utomated message] The Eosinophils) system which ge nerated this result tra nsmitted reference range : <=4.0. The reference r terri was not used to int erpret this result as normal/abnormal . [facility] CenterOannhzxPGRDEJHZRY6253-54-43 22:42:00 Test Item Value Reference Range Interpretation Comments MCHC (test code = MCHC) 33.5 32.0-36.[address] [facility] CenterEietbyxJVRHOKHJLI9853-15-13 22:42:00 Test Item Value Reference Range Interpretation Comments Platelet (test code = Platelet) 204 133-[address] [facility] CenterFdndflqUOESOWEGRR5783-78-43 22:42:00 Test Item Value Reference Range Interpretation Comments RDW (test code = RDW) 12.0 11.5-14.[address] [facility] CenterPletxkwWVHCEQMZLK8703-92-23 22:42:00 Test Item Value Reference Range Interpretation Comments RBC (test code = RBC) 4.38 4.70-6.[address] [facility] CenterBarkimrRGTMKABQOU9559-19-59 22:42:00 Test Item Value Reference Range Interpretation Comments WBC (test code = WBC) 8.0 3.7-10.[address] [facility] CenterIayljraUNRJIUWYSE4332-04-09 22:42:00 Test Item Value Reference Range Interpretation Comments MCV (test code = MCV) 90.5 80.0-94.[address] [facility] CenterFaelftqEUQRDATSKI7470-57-66 22:42:00 Test Item Value Reference Range Interpretation Comments Hgb (test code = Hgb) 13.3 14.0-18.[address] CenterIbuswhdIWVWDBQZZS1723-92-99 22:42:00 Test Item Value Reference Range Interpretation Comments Hct (test code = Hct) 39.7 42.0-54.[address] [facility] CenterAwrhbkyRVVZTIKAWL5513-16-85 22:42:00 Test Item Value Reference Range Interpretation Comments Eosinophils # (test code 0.1 See_Comment N [A utomated message] The = Eosinophils #) system whic h generated this result tra nsmitted reference range : <=0.5. The reference r terri was not used to int erpret this result as normal/abnormal . [facility] BrookIdwvuuuMMEPMCFWT4281-98-62 22:42:00 Test Item Value Reference Range Interpretation Comments BUN (test code = BUN) 13 7-22 N [facility] BrookYgusuvdCWURPAHTO6024-01-90 22:42:00 Test Item Value Reference Range Interpretation Comments Glucose Lvl (test code = Glucose Lvl) 83 70-99 N [facility] BrookHliwqjkLVSUBTHHJ9118-74-55 22:42:00 Test Item Value Reference Range Interpretation Comments Calcium Lvl (test code = Calcium Lvl) 9.3 8.5-10.5 N [facility] BrookFqhreczXXTYEFRXE9042-52-33 22:42:00 Test Item Value Reference Range Interpretation Comments CO2 (test code = CO2) 31 24-32 N [facility] BrookOgkzwkvQURATASKB6869-58-89 22:42:00 Test Item Value Reference Range Interpretation Comments AGAP (test code = AGAP) 11.0 10.0-20.[address] [facility] CenterPvngjpvLTEQZLPLEJ1258-02-77 22:42:00 Test Item Value Reference Range Interpretation Comments Monocytes (test code = Monocytes) 5.0 2.0-12.0 N [facility] BrookFcisjqbXWDVXSQRV8629-77-27 22:42:00 Test Item Value Reference Range Interpretation Comments eGFR (test code = eGFR) 131 [facility] BrookUxxpfrwMYYAAQXCH2165-79-71 22:42:00 Test Item Value Reference Range Interpretation Comments Sodium Lvl (test code = Sodium Lvl) 140 135-145 N [facility] BrookDvnvjzoFHPELUIVY1923-27-04 22:42:00 Test Item Value Reference Range Interpretation Comments Creatinine Lvl (test code = Creatinine 0.7 0.5-1.4 N Lvl) [facility] BrookZpfuvjxYJGGCFPFR6879-29-17 22:42:00 Test Item Value Reference Range Interpretation Comments Potassium Lvl (test code = Potassium 5.0 3.5-5.1 N Lvl) [facility] BrookGhalsmxNZDMGOSBH1181-19-39 22:42:00 Test Item Value Reference Range Interpretation Comments Chloride Lvl (test code = Chloride Lvl) 103 95-109 N [facility] BrookXpfkcesAMSQLMAAH9166-62-51 22:42:00 Test Item Value Reference Range Interpretation Comments Phosphorus (test code = Phosphorus) 4.7 2.5-4.5 H [facility] BrookMnvyreoUDGDFHKSO8101-45-08 22:42:00 Test Item Value Reference Range Interpretation Comments Magnesium Lvl (test code = Magnesium 1.8 1.8-2.4 N Lvl) [facility] CenterMkrbobeDSNQUYBGOO4399-92-58 22:42:00 Test Item Value Reference Range Interpretation Comments Basophils # (test code 0.1 See_Comment N [Aut omated message] The = Basophils #) system which generated this result tra nsmitted reference range : <=0.2. The reference r terri was not used to int erpret this result as normal/abnormal . [facility] CenterMkazctxTPUQHAWRLI5809-28-45 22:42:00 Test Item Value Reference Range Interpretation Comments Lymphocytes # (test code = Lymphocytes 2.5 1.0-5.5 N #) [facility] CenterTiwtkufPOWQULPHML7210-73-58 22:42:00 Test Item Value Reference Range Interpretation Comments Basophils (test code = 0.7 See_Comment N [Aut omated message] The Basophils) system which ge nerated this result tra nsmitted reference range : <=1.0. The reference r terri was not used to int erpret this result as normal/abnormal . [facility] CenterVzzsvcoPTRHSTJCCG4019-80-62 22:42:00 Test Item Value Reference Range Interpretation Comments Lymphocytes (test code = Lymphocytes) 31.3 20.0-40.[address] CenterOxtadtrUKJTMEVTGP5682-72-60 22:42:00 Test Item Value Reference Range Interpretation Comments Monocytes # (test code 0.4 See_Comment N [Aut omated message] The = Monocytes #) system which generated this result tra nsmitted reference range : <=0.8. The reference r terri was not used to int erpret this result as normal/abnormal . [place] [address]-11-17 22:42:00 Test Item Value Reference Range Interpretation Comments Segs-Bands # (test code = Segs-Bands #) 4.9 1.5-8.[address] CenterDvqrpsmKAOHYNHWMK5930-20-20 22:42:00 Test Item Value Reference Range Interpretation Comments Eosinophils (test code = 1.0 See_Comment N [A utomated message] The Eosinophils) system which ge nerated this result tra nsmitted reference range : <=4.0. The reference r terri was not used to int erpret this result as normal/abnormal . [facility] CenterJukpydrBDNDFSRLMN0342-97-98 22:42:00 Test Item Value Reference Range Interpretation Comments Eosinophils # (test code 0.1 See_Comment N [A utomated message] The = Eosinophils #) system whic h generated this result tra nsmitted reference range : <=0.5. The reference r terri was not used to int erpret this result as normal/abnormal . [facility] CenterKpgtnzgHWGLYBPKQK8446-54-91 22:42:00 Test Item Value Reference Range Interpretation Comments Monocytes (test code = Monocytes) 5.0 2.0-12.[address] CenterXfvinlvRMUDORJHWF4240-56-69 22:42:00 Test Item Value Reference Range Interpretation Comments Lymphocytes (test code = Lymphocytes) 31.3 20.0-40.[address] CenterUoqwivaEOTQUYGHKQ3782-67-32 22:42:00 Test Item Value Reference Range Interpretation Comments Segs (test code = Segs) 62.0 45.0-75.[address] [facility] CenterAguprwjIMEDJDIGKV3460-59-85 22:42:00 Test Item Value Reference Range Interpretation Comments MPV (test code = MPV) 9.0 7.4-10.[address] [facility] CenterMobsqwiQDWTKDPKBM4027-11-89 22:42:00 Test Item Value Reference Range Interpretation Comments MCH (test code = MCH) 30.3 pg 27.0-31.[address] CenterPnfmgxzKVHXCKWDEJ1799-38-42 22:42:00 Test Item Value Reference Range Interpretation Comments MCHC (test code = MCHC) 33.5 32.0-36.[address] [facility] CenterAjmgbxhJZVDHSUKMP0940-84-76 22:42:00 Test Item Value Reference Range Interpretation Comments Segs (test code = Segs) 62.0 45.0-75.[address] CenterVerxmcaLVNTQFBTBK9708-65-99 22:42:00 Test Item Value Reference Range Interpretation Comments Platelet (test code = Platelet) 204 133-[address] [facility] [facility] CenterIzgituxSJRKTPIXLF9522-21-48 22:42:00 Test Item Value Reference Range Interpretation Comments RDW (test code = RDW) 12.0 11.5-14.[address] [facility] CenterNalhtdrLDPXOQUCHA9101-51-54 22:42:00 Test Item Value Reference Range Interpretation Comments RBC (test code = RBC) 4.38 4.70-6.[address] [facility] CenterYfoyjokZBYBSHWTNG4515-72-79 22:42:00 Test Item Value Reference Range Interpretation Comments WBC (test code = WBC) 8.0 3.7-10.[address] CenterGhxmzkyZXTFXWLJEZ3056-07-62 22:42:00 Test Item Value Reference Range Interpretation Comments MCV (test code = MCV) 90.5 80.0-94.[address] CenterVecnakiKVLMRKAZBD8698-52-73 22:42:00 Test Item Value Reference Range Interpretation Comments Hgb (test code = Hgb) 13.3 14.0-18.[address] CenterUxnkrtqGRKVUJXVWB4882-12-39 22:42:00 Test Item Value Reference Range Interpretation Comments Hct (test code = Hct) 39.7 42.0-54.[address] CenterOsbksjuMRJZLNQHKR0957-49-65 22:42:00 Test Item Value Reference Range Interpretation Comments MPV (test code = MPV) 9.0 7.4-10.4 N [facility] BrookTliwmecNPCNPBKTK7826-57-93 22:42:00 Test Item Value Reference Range Interpretation Comments BUN (test code = BUN) 13 7-22 N [facility] BrookOjmxsavQPJEYQLWV5022-93-03 22:42:00 Test Item Value Reference Range Interpretation Comments Glucose Lvl (test code = Glucose Lvl) 83 70-99 N [facility] BrookBuhnkxbPYYJMGNEI2404-61-99 22:42:00 Test Item Value Reference Range Interpretation Comments Calcium Lvl (test code = Calcium Lvl) 9.3 8.5-10.5 N [facility] BrookOkztqffSTNCERXNY6914-69-52 22:42:00 Test Item Value Reference Range Interpretation Comments CO2 (test code = CO2) 31 24-32 N [facility] BrookAcnwsgwVJUSBVANY4866-21-00 22:42:00 Test Item Value Reference Range Interpretation Comments AGAP (test code = AGAP) 11.0 10.0-20.0 N [facility] BrookTlaedbuCVSMCQWSY5043-40-37 22:42:00 Test Item Value Reference Range Interpretation Comments eGFR (test code = eGFR) 131 [facility] CenterJagnaptEJKVRVSEXM4168-19-98 22:42:00 Test Item Value Reference Range Interpretation Comments MCH (test code = MCH) 30.3 pg 27.0-31.0 N [facility] BrookDwxptfzDCMVGYWSO9721-03-90 22:42:00 Test Item Value Reference Range Interpretation Comments Sodium Lvl (test code = Sodium Lvl) 140 135-145 N [facility] BrookFmwdrwuFHXYYBRNZ7154-70-99 22:42:00 Test Item Value Reference Range Interpretation Comments Creatinine Lvl (test code = Creatinine 0.7 0.5-1.4 N Lvl) [facility] BrookAfljantPPOJEUFQG3268-39-61 22:42:00 Test Item Value Reference Range Interpretation Comments Potassium Lvl (test code = Potassium 5.0 3.5-5.1 N Lvl) [facility] BrookMclvguwULEMFEBOZ7540-30-30 22:42:00 Test Item Value Reference Range Interpretation Comments Chloride Lvl (test code = Chloride Lvl) 103 95-109 N [facility] BrookUrlxncwPWNPUIHBP2897-74-44 22:42:00 Test Item Value Reference Range Interpretation Comments Phosphorus (test code = Phosphorus) 4.7 2.5-4.5 H [facility] BrookOxonbkbTTTJHTLDQ1492-30-62 22:42:00 Test Item Value Reference Range Interpretation Comments Magnesium Lvl (test code = Magnesium 1.8 1.8-2.4 N Lvl) [facility] CenterVmkxxdoAMUZNLHJAJ1237-54-00 22:42:00 Test Item Value Reference Range Interpretation Comments Basophils # (test code 0.1 See_Comment N [Aut omated message] The = Basophils #) system which generated this result tra nsmitted reference range : <=0.2. The reference r terri was not used to int erpret this result as normal/abnormal . [facility] CenterYrlirfuJBTPNSWJFF4179-59-86 22:42:00 Test Item Value Reference Range Interpretation Comments Lymphocytes # (test code = Lymphocytes 2.5 1.0-5.5 N #) [facility] CenterWlrfyrsQWJRDTYBJK1355-87-76 22:42:00 Test Item Value Reference Range Interpretation Comments Basophils (test code = 0.7 See_Comment N [Aut omated message] The Basophils) system which ge nerated this result tra nsmitted reference range : <=1.0. The reference r terri was not used to int erpret this result as normal/abnormal . [facility] CenterIoajoppOYCWIBCWGL1695-67-03 22:42:00 Test Item Value Reference Range Interpretation Comments Monocytes # (test code 0.4 See_Comment N [Aut omated message] The = Monocytes #) system which generated this result tra nsmitted reference range : <=0.8. The reference r terri was not used to int erpret this result as normal/abnormal . [facility] CenterOqaknrtSUGUAHLYVX7589-05-90 22:42:00 Test Item Value Reference Range Interpretation Comments MCHC (test code = MCHC) 33.5 32.0-36.[address] [facility] CenterDnuekhrWNEJSMCQQI1641-32-77 22:42:00 Test Item Value Reference Range Interpretation Comments Segs-Bands # (test code = Segs-Bands #) 4.9 1.5-8.[address] CenterKqeyetqWNLUGNHLJW2713-03-52 22:42:00 Test Item Value Reference Range Interpretation Comments Eosinophils (test code = 1.0 See_Comment N [A utomated message] The Eosinophils) system which ge nerated this result tra nsmitted reference range : <=4.0. The reference r terri was not used to int erpret this result as normal/abnormal . [facility] CenterKwrphhbMKPGYMHWWV4574-91-46 22:42:00 Test Item Value Reference Range Interpretation Comments Eosinophils # (test code 0.1 See_Comment N [A utomated message] The = Eosinophils #) system whic h generated this result tra nsmitted reference range : <=0.5. The reference r terri was not used to int erpret this result as normal/abnormal . [facility] CenterHsrhnynJWZWOTVFUC2400-53-17 22:42:00 Test Item Value Reference Range Interpretation Comments Monocytes (test code = Monocytes) 5.0 2.0-12.[address] CenterPyrzpuzACSGPRPNVN3396-44-59 22:42:00 Test Item Value Reference Range Interpretation Comments Lymphocytes (test code = Lymphocytes) 31.3 20.0-40.[address] CenterDkwqumbVDAUVOYEEQ3867-03-80 22:42:00 Test Item Value Reference Range Interpretation Comments Segs (test code = Segs) 62.0 45.0-75.[address] [facility] CenterOeqtrgkAVDCQWEFAH8898-70-99 22:42:00 Test Item Value Reference Range Interpretation Comments MPV (test code = MPV) 9.0 7.4-10.[address] CenterRjktggvJWWFKGTFCH7838-45-32 22:42:00 Test Item Value Reference Range Interpretation Comments MCH (test code = MCH) 30.3 pg 27.0-31.[address] [facility] CenterEwhffrqQKUBZUBOSD1042-00-82 22:42:00 Test Item Value Reference Range Interpretation Comments MCHC (test code = MCHC) 33.5 32.0-36.[address] [facility] CenterQfjockiUKNAFWZRGQ2180-86-89 22:42:00 Test Item Value Reference Range Interpretation Comments Platelet (test code = Platelet) 204 133-[address] [facility] [facility] CenterFtciylhSJTASRQNKI5279-68-58 22:42:00 Test Item Value Reference Range Interpretation Comments Platelet (test code = Platelet) 204 133-[address] [facility] CenterExtetybFCFFTNXIZI4601-10-46 22:42:00 Test Item Value Reference Range Interpretation Comments RDW (test code = RDW) 12.0 11.5-14.[address] [facility] CenterLmfzxkaHGYYFXRIMB4399-18-43 22:42:00 Test Item Value Reference Range Interpretation Comments RBC (test code = RBC) 4.38 4.70-6.[address] [facility] CenterSuhqhfgGNKDEXFZZX5310-83-54 22:42:00 Test Item Value Reference Range Interpretation Comments WBC (test code = WBC) 8.0 3.7-10.[address] [facility] CenterOrmlksbLJUSIGYREK1616-55-05 22:42:00 Test Item Value Reference Range Interpretation Comments MCV (test code = MCV) 90.5 80.0-94.[address] [facility] CenterEtjucieFJRXXTQKXO0026-18-08 22:42:00 Test Item Value Reference Range Interpretation Comments Hgb (test code = Hgb) 13.3 14.0-18.[address] [facility] CenterSounoqyABMXZIOTYF8992-75-87 22:42:00 Test Item Value Reference Range Interpretation Comments Hct (test code = Hct) 39.7 42.0-54.[address] [facility] CenterDfhdncuFYTHAZFIMP3372-55-74 22:42:00 Test Item Value Reference Range Interpretation Comments RDW (test code = RDW) 12.0 11.5-14.5 N [facility]JlvrzboCNTPLKUVO0633-53-47 22:42:00 Test Item Value Reference Range Interpretation Comments BUN (test code = BUN) 13 7-22 N [facility] BrookMdxydxoEIXEHWYUU8138-96-22 22:42:00 Test Item Value Reference Range Interpretation Comments Glucose Lvl (test code = Glucose Lvl) 83 70-99 N [facility] BrookClaskceUDXHEWEDQ2140-01-74 22:42:00 Test Item Value Reference Range Interpretation Comments Calcium Lvl (test code = Calcium Lvl) 9.3 8.5-10.5 N [facility] BrookWgvkyxiVWMFFDKNR1576-29-49 22:42:00 Test Item Value Reference Range Interpretation Comments CO2 (test code = CO2) 31 24-32 N [facility] BrookQdpdxblDTBMARSOY3239-40-78 22:42:00 Test Item Value Reference Range Interpretation Comments AGAP (test code = AGAP) 11.0 10.0-20.0 N [facility] BrookEnohmjkSZZIFTHRG5217-17-52 22:42:00 Test Item Value Reference Range Interpretation Comments eGFR (test code = eGFR) 131 [facility] BrookMcedgxqUWWNVBRCD5831-38-05 22:42:00 Test Item Value Reference Range Interpretation Comments Sodium Lvl (test code = Sodium Lvl) 140 135-[address] [facility] CenterKspromuVBIMRNQQVN5719-25-72 22:42:00 Test Item Value Reference Range Interpretation Comments RBC (test code = RBC) 4.38 4.70-6.10 L [facility] BrookLmvhyctVACZQXETQ5570-41-99 22:42:00 Test Item Value Reference Range Interpretation Comments Creatinine Lvl (test code = Creatinine 0.7 0.5-1.4 N Lvl) [facility] BrookWuthogjJBAXFGSUH0972-68-84 22:42:00 Test Item Value Reference Range Interpretation Comments Potassium Lvl (test code = Potassium 5.0 3.5-5.1 N Lvl) [facility] BrookFkorqcxDCKIRUJNR3240-16-23 22:42:00 Test Item Value Reference Range Interpretation Comments Chloride Lvl (test code = Chloride Lvl) 103 95-109 N [facility] BrookUsdquftJCMGWLDPV0083-56-21 22:42:00 Test Item Value Reference Range Interpretation Comments Phosphorus (test code = Phosphorus) 4.7 2.5-4.5 H [facility] BrookSjjzyutGIAXRWAQU7288-50-06 22:42:00 Test Item Value Reference Range Interpretation Comments Magnesium Lvl (test code = Magnesium 1.8 1.8-2.4 N Lvl) [facility] CenterRxgzwcrOSMVYYIVEF4510-37-33 22:42:00 Test Item Value Reference Range Interpretation Comments Basophils # (test code 0.1 See_Comment N [Aut omated message] The = Basophils #) system which generated this result tra nsmitted reference range : <=0.2. The reference r terri was not used to int erpret this result as normal/abnormal . [facility] CenterGvaktenZWIUEIHBCW7904-66-43 22:42:00 Test Item Value Reference Range Interpretation Comments Lymphocytes # (test code = Lymphocytes 2.5 1.0-5.5 N #) [facility] CenterTfjlwmhRGSXKRNSUL4264-05-35 22:42:00 Test Item Value Reference Range Interpretation Comments Basophils (test code = 0.7 See_Comment N [Aut omated message] The Basophils) system which ge nerated this result tra nsmitted reference range : <=1.0. The reference r terri was not used to int erpret this result as normal/abnormal . [facility] CenterCizlxptXJFWDLQADB4524-22-92 22:42:00 Test Item Value Reference Range Interpretation Comments Monocytes # (test code 0.4 See_Comment N [Aut omated message] The = Monocytes #) system which generated this result tra nsmitted reference range : <=0.8. The reference r terri was not used to int erpret this result as normal/abnormal . [facility] CenterMqezbrfSPMSBKJIWV7684-41-95 22:42:00 Test Item Value Reference Range Interpretation Comments Segs-Bands # (test code = Segs-Bands #) 4.9 1.5-8.[address] [facility] CenterRzpjvciFWTBFHQIKX4167-56-18 22:42:00 Test Item Value Reference Range Interpretation Comments WBC (test code = WBC) 8.0 3.7-10.[address] [facility] CenterOypolugLQWIARBNPN3024-81-51 22:42:00 Test Item Value Reference Range Interpretation Comments Eosinophils (test code = 1.0 See_Comment N [A utomated message] The Eosinophils) system which ge nerated this result tra nsmitted reference range : <=4.0. The reference r terri was not used to int erpret this result as normal/abnormal . [facility] CenterDomgsetYLPJZFUTXG8212-99-15 22:42:00 Test Item Value Reference Range Interpretation Comments Eosinophils # (test code 0.1 See_Comment N [A utomated message] The = Eosinophils #) system whic h generated this result tra nsmitted reference range : <=0.5. The reference r terri was not used to int erpret this result as normal/abnormal . [facility] CenterQkntveuXQWGJWGTRU7907-55-92 22:42:00 Test Item Value Reference Range Interpretation Comments Monocytes (test code = Monocytes) 5.0 2.0-12.[address] [facility] CenterCsqjxxeYMRNTEHOCH2453-27-63 22:42:00 Test Item Value Reference Range Interpretation Comments Lymphocytes (test code = Lymphocytes) 31.3 20.0-40.[address] [facility] CenterWpssyrrYWMCDXFXNB5805-07-58 22:42:00 Test Item Value Reference Range Interpretation Comments Segs (test code = Segs) 62.0 45.0-75.[address] [facility] CenterXnsgdmlYNDIXIZHWP0956-81-02 22:42:00 Test Item Value Reference Range Interpretation Comments MPV (test code = MPV) 9.0 7.4-10.[address] [facility] CenterEylpphhOCGQCOJEGL9330-47-07 22:42:00 Test Item Value Reference Range Interpretation Comments MCH (test code = MCH) 30.3 pg 27.0-31.[address] [facility] CenterQmuzdcmXKONWFVQMX1106-44-47 22:42:00 Test Item Value Reference Range Interpretation Comments MCHC (test code = MCHC) 33.5 32.0-36.[address] [facility] CenterRwallaoSTCJDJDPNZ4822-14-42 22:42:00 Test Item Value Reference Range Interpretation Comments Platelet (test code = Platelet) 204 133-[address] [facility] [facility] CenterOtxfqbgVCVDPCGKBY8837-52-97 22:42:00 Test Item Value Reference Range Interpretation Comments RDW (test code = RDW) 12.0 11.5-14.[address] [facility] CenterConaxmeFLCFJTWQUI1638-43-39 22:42:00 Test Item Value Reference Range Interpretation Comments MCV (test code = MCV) 90.5 80.0-94.[address] [facility] CenterXzjgpzcZYHDVUUCVB5335-34-07 22:42:00 Test Item Value Reference Range Interpretation Comments RBC (test code = RBC) 4.38 4.70-6.[address] [facility] CenterOnunpjlTZBMMFIHNQ1289-34-71 22:42:00 Test Item Value Reference Range Interpretation Comments WBC (test code = WBC) 8.0 3.7-10.[address] [facility] CenterConxnchLAOITOWZTE4380-91-50 22:42:00 Test Item Value Reference Range Interpretation Comments MCV (test code = MCV) 90.5 80.0-94.[address] [facility] CenterRkxtzuuUKLMTOGYRE6225-68-86 22:42:00 Test Item Value Reference Range Interpretation Comments Hgb (test code = Hgb) 13.3 14.0-18.[address] [facility] CenterSaiqfbfACUQGRAPNB2086-53-86 22:42:00 Test Item Value Reference Range Interpretation Comments Hct (test code = Hct) 39.7 42.0-54.[address] CenterWnwjhrzKTMPIGMYYP9813-59-85 22:42:00 Test Item Value Reference Range Interpretation Comments Hgb (test code = Hgb) 13.3 14.0-18.[address] [facility] CenterIeszxyqXPWRJPAQRS4338-50-88 22:42:00 Test Item Value Reference Range Interpretation Comments Hct (test code = Hct) 39.7 42.0-54.0 L [facility] BrookBlcjrcpEYXHHBRJN4669-76-85 22:42:00 Test Item Value Reference Range Interpretation Comments BUN (test code = BUN) 13 7-22 N [facility] BrookSoktcgrUJWKBFVTH6550-34-24 22:42:00 Test Item Value Reference Range Interpretation Comments Glucose Lvl (test code = Glucose Lvl) 83 70-99 N [facility] BrookEaxgntrMGJJLQBXD1878-72-11 22:42:00 Test Item Value Reference Range Interpretation Comments Calcium Lvl (test code = Calcium Lvl) 9.3 8.5-10.5 N [facility] BrookMcxriogWRIWPSORI4766-49-88 22:42:00 Test Item Value Reference Range Interpretation Comments CO2 (test code = CO2) 31 24-32 N [facility] BrookWsfjnsjOTNOPXJFF0096-29-66 22:42:00 Test Item Value Reference Range Interpretation Comments AGAP (test code = AGAP) 11.0 10.0-20.0 N [facility] BrookYowxkbqPUBUVWKYC7997-74-41 22:42:00 Test Item Value Reference Range Interpretation Comments eGFR (test code = eGFR) 131 [facility] BrookAfdofoxBUAFHQQIE7156-05-68 22:42:00 Test Item Value Reference Range Interpretation Comments Sodium Lvl (test code = Sodium Lvl) 140 135-145 N [facility] BrookPlkvekfIRWUOQWPI7969-89-87 22:42:00 Test Item Value Reference Range Interpretation Comments Creatinine Lvl (test code = Creatinine 0.7 0.5-1.4 N Lvl) [facility] BrookZipklcxYFDDZORAJ2117-40-53 22:42:00 Test Item Value Reference Range Interpretation Comments Potassium Lvl (test code = Potassium 5.0 3.5-5.1 N Lvl) [facility] BrookNxpdkuiQPXPALTPY1417-54-21 22:42:00 Test Item Value Reference Range Interpretation Comments Chloride Lvl (test code = Chloride Lvl) 103 95-109 N [facility] BrookLssseskEVYFHOMES7940-36-65 22:42:00 Test Item Value Reference Range Interpretation Comments Phosphorus (test code = Phosphorus) 4.7 2.5-4.5 H [facility] BrookUwxpgmrSTYTOSOMA5335-79-35 22:42:00 Test Item Value Reference Range Interpretation Comments Magnesium Lvl (test code = Magnesium 1.8 1.8-2.4 N Lvl) [facility] CenterHdvfvudRKGHZDKIVA8986-98-40 22:42:00 Test Item Value Reference Range Interpretation Comments Basophils # (test code 0.1 See_Comment N [Aut omated message] The = Basophils #) system which generated this result tra nsmitted reference range : <=0.2. The reference r terri was not used to int erpret this result as normal/abnormal . [facility] CenterGbcredpHHRHYQALZT5194-48-13 22:42:00 Test Item Value Reference Range Interpretation Comments Lymphocytes # (test code = Lymphocytes 2.5 1.0-5.5 N #) [facility] CenterYvlhoskXWSXKNIZKI8817-24-76 22:42:00 Test Item Value Reference Range Interpretation Comments Basophils (test code = 0.7 See_Comment N [Aut omated message] The Basophils) system which ge nerated this result tra nsmitted reference range : <=1.0. The reference r terri was not used to int erpret this result as normal/abnormal . [facility] CenterSpawvleLJVUQQQUOY7868-54-95 22:42:00 Test Item Value Reference Range Interpretation Comments Monocytes # (test code 0.4 See_Comment N [Aut omated message] The = Monocytes #) system which generated this result tra nsmitted reference range : <=0.8. The reference r terri was not used to int erpret this result as normal/abnormal . [facility] CenterRlrodylLOJTOIRTMQ4521-92-67 22:42:00 Test Item Value Reference Range Interpretation Comments Segs-Bands # (test code = Segs-Bands #) 4.9 1.5-8.[address] [facility] CenterTigevaeXERFYVPTJG5318-01-40 22:42:00 Test Item Value Reference Range Interpretation Comments Eosinophils (test code = 1.0 See_Comment N [A utomated message] The Eosinophils) system which ge nerated this result tra nsmitted reference range : <=4.0. The reference r terri was not used to int erpret this result as normal/abnormal . [facility] CenterLhbmrfyJFMNUQDWYD6146-92-41 22:42:00 Test Item Value Reference Range Interpretation Comments Eosinophils # (test code 0.1 See_Comment N [A utomated message] The = Eosinophils #) system [facility] h generated this result tra nsmitted reference range : <=0.5. The reference r terri was not used to int erpret this result as normal/abnormal . [facility] CenterZlcdiukVQPQIPGWGD1033-53-36 22:42:00 Test Item Value Reference Range Interpretation Comments Monocytes (test code = Monocytes) 5.0 2.0-12.[address] CenterIjlqtekNLJIRRZYVH6593-13-89 22:42:00 Test Item Value Reference Range Interpretation Comments Lymphocytes (test code = Lymphocytes) 31.3 20.0-40.[address] [facility] CenterNcpryiuTYFKQDLDPM3661-17-53 22:42:00 Test Item Value Reference Range Interpretation Comments Segs (test code = Segs) 62.0 45.0-75.[address] [facility] CenterPdbgycrPSNEWZEKOM9798-40-90 22:42:00 Test Item Value Reference Range Interpretation Comments MPV (test code = MPV) 9.0 7.4-10.[address] [facility] CenterJbpllmaHKMDVLIZLK1498-61-80 22:42:00 Test Item Value Reference Range Interpretation Comments MCH (test code = MCH) 30.3 pg 27.0-31.[address] [facility] CenterPzqlgxmJTIUWSYCXH5529-21-76 22:42:00 Test Item Value Reference Range Interpretation Comments MCHC (test code = MCHC) 33.5 32.0-36.[address] CenterNottqfhKVFETHRNNK4581-73-06 22:42:00 Test Item Value Reference Range Interpretation Comments Platelet (test code = Platelet) 204 133-[address] [facility] [facility] CenterQlpdjyvNFSZBXLYKR8828-77-75 22:42:00 Test Item Value Reference Range Interpretation Comments RDW (test code = RDW) 12.0 11.5-14.[address] [facility] CenterIhqnetyDOWGGPTOGM4611-87-78 22:42:00 Test Item Value Reference Range Interpretation Comments RBC (test code = RBC) 4.38 4.70-6.[address] [facility] CenterVdksyfsBMQVTJRMYY2760-13-73 22:42:00 Test Item Value Reference Range Interpretation Comments WBC (test code = WBC) 8.0 3.7-10.[address] CenterCvxdrdaZLYZCLXHOR3897-03-48 22:42:00 Test Item Value Reference Range Interpretation Comments MCV (test code = MCV) 90.5 80.0-94.[address] CenterMfmvmnrQLGOULRKQN0841-57-06 22:42:00 Test Item Value Reference Range Interpretation Comments Hgb (test code = Hgb) 13.3 14.0-18.[address] CenterBcpfhwcYTJKXMUZKL3814-65-81 22:42:00 Test Item Value Reference Range Interpretation Comments Hct (test code = Hct) 39.7 42.0-54.0 L [facility] BrookVumqbirDMXNCEDKG4110-32-76 22:42:00 Test Item Value Reference Range Interpretation Comments BUN (test code = BUN) 13 7-22 N [facility] BrookVzmdbfePLDHZSNZN3362-95-67 22:42:00 Test Item Value Reference Range Interpretation Comments Glucose Lvl (test code = Glucose Lvl) 83 70-99 N [facility] BrookAfqoqxyLTFYFXISC5856-51-68 22:42:00 Test Item Value Reference Range Interpretation Comments Calcium Lvl (test code = Calcium Lvl) 9.3 8.5-10.5 N [facility] BrookJexvxhjPJRYZCGLC1501-98-25 22:42:00 Test Item Value Reference Range Interpretation Comments CO2 (test code = CO2) 31 24-32 N [facility] BrookQifzizoMOAXVMIDW2805-16-35 22:42:00 Test Item Value Reference Range Interpretation Comments AGAP (test code = AGAP) 11.0 10.0-20.0 N [facility] BrookYsastncMGCFUFQNY0472-34-90 22:42:00 Test Item Value Reference Range Interpretation Comments eGFR (test code = eGFR) 131 [facility] BrookJzjvjdrSYRSUPUVR9125-00-77 22:42:00 Test Item Value Reference Range Interpretation Comments Sodium Lvl (test code = Sodium Lvl) 140 135-145 N [facility] BrookCywlyzsPLGOTXYME6799-95-73 22:42:00 Test Item Value Reference Range Interpretation Comments Creatinine Lvl (test code = Creatinine 0.7 0.5-1.4 N Lvl) [facility] BrookPpjzziyGGIFPHVEZ8210-09-80 22:42:00 Test Item Value Reference Range Interpretation Comments Potassium Lvl (test code = Potassium 5.0 3.5-5.1 N Lvl) [facility] BrookEgxwimpGAPLQZCSH6406-54-12 22:42:00 Test Item Value Reference Range Interpretation Comments Chloride Lvl (test code = Chloride Lvl) 103 95-109 N [facility] BrookIaoctmxWCTEWZVFL7397-16-89 22:42:00 Test Item Value Reference Range Interpretation Comments BUN (test code = BUN) 13 7-22 N [facility] BrookWtsufpbKNROOKXQO0964-11-78 22:42:00 Test Item Value Reference Range Interpretation Comments Glucose Lvl (test code = Glucose Lvl) 83 70-99 N [facility] BrookIgzqazqRHGEXYJYS9684-29-78 22:42:00 Test Item Value Reference Range Interpretation Comments Calcium Lvl (test code = Calcium Lvl) 9.3 8.5-10.5 N [facility] BrookVfmoyszXDFLMMKTX1229-92-71 22:42:00 Test Item Value Reference Range Interpretation Comments CO2 (test code = CO2) 31 24-32 N [facility] BrookUjxmmmiMFYKILIFN0361-49-89 22:42:00 Test Item Value Reference Range Interpretation Comments AGAP (test code = AGAP) 11.0 10.0-20.0 N [facility] BrookKnukexuSTRPTKBTL4679-24-50 22:42:00 Test Item Value Reference Range Interpretation Comments eGFR (test code = eGFR) 131 [facility] BrookDjikvjlJOLHWLFIN3015-86-64 22:42:00 Test Item Value Reference Range Interpretation Comments Sodium Lvl (test code = Sodium Lvl) 140 135-145 N [facility] BrookRjqppjqMLIRZZRNH9718-58-31 22:42:00 Test Item Value Reference Range Interpretation Comments Creatinine Lvl (test code = Creatinine 0.7 0.5-1.4 N Lvl) [facility] BrookCjlurjlVFSTACNUO5307-07-10 22:42:00 Test Item Value Reference Range Interpretation Comments Potassium Lvl (test code = Potassium 5.0 3.5-5.1 N Lvl) [facility] BrookTkhfgwcQZOYKTBPB3313-14-22 22:42:00 Test Item Value Reference Range Interpretation Comments Chloride Lvl (test code = Chloride Lvl) 103 95-109 N [facility] BrookCljijvdMFKYHMDEN1929-57-35 22:42:00 Test Item Value Reference Range Interpretation Comments Phosphorus (test code = Phosphorus) 4.7 2.5-4.5 H [facility] BrookXrcfqviIUQKHWPNK5203-91-17 22:42:00 Test Item Value Reference Range Interpretation Comments Magnesium Lvl (test code = Magnesium 1.8 1.8-2.4 N Lvl) [facility] CenterMysluidIYIVGSVYOX6851-80-89 22:42:00 Test Item Value Reference Range Interpretation Comments Basophils # (test code 0.1 See_Comment N [Aut omated message] The = Basophils #) system which generated this result tra nsmitted reference range : <=0.2. The reference r terri was not used to int erpret this result as normal/abnormal . [facility] CenterDqjkgkoTAPTNGONBW7555-07-99 22:42:00 Test Item Value Reference Range Interpretation Comments Lymphocytes # (test code = Lymphocytes 2.5 1.0-5.5 N #) [facility] CenterVjbzxjgLQELBHBKAX5166-48-38 22:42:00 Test Item Value Reference Range Interpretation Comments Basophils (test code = 0.7 See_Comment N [Aut omated message] The Basophils) system which ge nerated this result tra nsmitted reference range : <=1.0. The reference r terri was not used to int erpret this result as normal/abnormal . [facility] CenterTyqxugeJZCIDYTRLN0516-92-03 22:42:00 Test Item Value Reference Range Interpretation Comments Monocytes # (test code 0.4 See_Comment N [Aut omated message] The = Monocytes #) system which generated this result tra nsmitted reference range : <=0.8. The reference r terri was not used to int erpret this result as normal/abnormal . [facility] CenterDjjtbpvGREQZFVAHC0410-16-54 22:42:00 Test Item Value Reference Range Interpretation Comments Segs-Bands # (test code = Segs-Bands #) 4.9 1.5-8.[address] [facility] CenterHjxdtivHDWHDDGAVF0813-85-92 22:42:00 Test Item Value Reference Range Interpretation Comments Eosinophils (test code = 1.0 See_Comment N [A utomated message] The Eosinophils) system which ge nerated this result tra nsmitted reference range : <=4.0. The reference r terri was not used to int erpret this result as normal/abnormal . [facility] CenterDsbpqcnNLYQWWHJQB8796-76-80 22:42:00 Test Item Value Reference Range Interpretation Comments Eosinophils # (test code 0.1 See_Comment N [A utomated message] The = Eosinophils #) system whic h generated this result tra nsmitted reference range : <=0.5. The reference r terri was not used to int erpret this result as normal/abnormal . [facility] CenterNonslgbQXKCQEXMEF2953-80-69 22:42:00 Test Item Value Reference Range Interpretation Comments Monocytes (test code = Monocytes) 5.0 2.0-12.[address] CenterPlstoulRVJBIXTDKA8691-93-62 22:42:00 Test Item Value Reference Range Interpretation Comments Lymphocytes (test code = Lymphocytes) 31.3 20.0-40.[address] CenterVcgejeyXUOUVDVJKE8282-21-78 22:42:00 Test Item Value Reference Range Interpretation Comments Segs (test code = Segs) 62.0 45.0-75.[address] CenterAswjizsHMOEZWGDVI9684-51-72 22:42:00 Test Item Value Reference Range Interpretation Comments MPV (test code = MPV) 9.0 7.4-10.[address] [facility] CenterZupwszyVXQZOYEZEL9256-34-42 22:42:00 Test Item Value Reference Range Interpretation Comments MCH (test code = MCH) 30.3 pg 27.0-31.[address] CenterAxvxxqqLDWHLXVLLW0014-90-95 22:42:00 Test Item Value Reference Range Interpretation Comments MCHC (test code = MCHC) 33.5 32.0-36.[address] CenterEgpznvpYJDHZPHWVN8014-17-88 22:42:00 Test Item Value Reference Range Interpretation Comments Platelet (test code = Platelet) 204 133-[address] [facility] [facility] CenterPljmvziWTYQRXSDIX2914-39-34 22:42:00 Test Item Value Reference Range Interpretation Comments RDW (test code = RDW) 12.0 11.5-14.[address] CenterYdprtziBWNOKUVTUE1301-74-79 22:42:00 Test Item Value Reference Range Interpretation Comments RBC (test code = RBC) 4.38 4.70-6.[address] [facility] CenterFjycxlmBLGZAGTIUI2126-14-31 22:42:00 Test Item Value Reference Range Interpretation Comments WBC (test code = WBC) 8.0 3.7-10.[address] [facility] CenterScadoakDCUIWSPRPY7343-58-63 22:42:00 Test Item Value Reference Range Interpretation Comments MCV (test code = MCV) 90.5 80.0-94.[address] CenterNdbgvfbHFPQTNLWEK0172-80-98 22:42:00 Test Item Value Reference Range Interpretation Comments Hgb (test code = Hgb) 13.3 14.0-18.[address] CenterNmxammbSJJGZTCMDE9526-91-15 22:42:00 Test Item Value Reference Range Interpretation Comments Hct (test code = Hct) 39.7 42.0-54.0 L [facility] BrookYdscsjyZXZSYFIVK5909-97-50 22:42:00 Test Item Value Reference Range Interpretation Comments BUN (test code = BUN) 13 7-22 N [facility] BrookElztxuoCHCMVMYKP1107-47-50 22:42:00 Test Item Value Reference Range Interpretation Comments Phosphorus (test code = Phosphorus) 4.7 2.5-4.5 H [facility] BrookDmpeqyrTRGQRABUC9658-00-96 22:42:00 Test Item Value Reference Range Interpretation Comments Magnesium Lvl (test code = Magnesium 1.8 1.8-2.4 N Lvl) [facility] CenterXvragbqOIBMJFLZPC0949-39-67 22:42:00 Test Item Value Reference Range Interpretation Comments Basophils # (test code 0.1 See_Comment N [Aut omated message] The = Basophils #) system which generated this result tra nsmitted reference range : <=0.2. The reference r terri was not used to int erpret this result as normal/abnormal . [facility] CenterJflgiijIQJMKCYSCF9625-48-28 22:42:00 Test Item Value Reference Range Interpretation Comments Lymphocytes # (test code = Lymphocytes 2.5 1.0-5.5 N #) [facility] CenterUzcrustAWJANHGTES2014-98-09 22:42:00 Test Item Value Reference Range Interpretation Comments Basophils (test code = 0.7 See_Comment N [Aut omated message] The Basophils) system which ge nerated this result tra nsmitted reference range : <=1.0. The reference r terri was not used to int erpret this result as normal/abnormal . [facility]SmofkwwCTEMGYFVJM5673-05-92 22:42:00 Test Item Value Reference Range Interpretation Comments Monocytes # (test code 0.4 See_Comment N [Aut omated message] The = Monocytes #) system which generated this result tra nsmitted reference range : <=0.8. The reference r terri was not used to int erpret this result as normal/abnormal . [facility] CenterWzlytclEUIBXZMGVS6112-27-20 22:42:00 Test Item Value Reference Range Interpretation Comments Segs-Bands # (test code = Segs-Bands #) 4.9 1.5-8.[address] [facility] CenterWlnfcetXRONRNJIPE6292-48-10 22:42:00 Test Item Value Reference Range Interpretation Comments Eosinophils (test code = 1.0 See_Comment N [A utomated message] The Eosinophils) system which ge nerated this result tra nsmitted reference range : <=4.0. The reference r terri was not used to int erpret this result as normal/abnormal . [facility] CenterGgzmcmcZLXKUKSMTV3976-03-47 22:42:00 Test Item Value Reference Range Interpretation Comments Eosinophils # (test code 0.1 See_Comment N [A utomated message] The = Eosinophils #) system wh h generated this result tra nsmitted reference range : <=0.5. The reference r terri was not used to int erpret this result as normal/abnormal . [facility] CenterQfxligkHGTCOVQGDG4806-51-46 22:42:00 Test Item Value Reference Range Interpretation Comments Monocytes (test code = Monocytes) 5.0 2.0-12.0 N [facility]YpvhoajSLPVCIXNX6872-84-88 22:42:00 Test Item Value Reference Range Interpretation Comments Glucose Lvl (test code = Glucose Lvl) 83 70-[address] [facility] CenterWbbdlvnPHQSMUMPJO4268-77-60 22:42:00 Test Item Value Reference Range Interpretation Comments Lymphocytes (test code = Lymphocytes) 31.3 20.0-40.[address] [facility] CenterAtiznudTADXWFXZJS2330-82-62 22:42:00 Test Item Value Reference Range Interpretation Comments Segs (test code = Segs) 62.0 45.0-75.[address] [facility] CenterNemftvsMLVERTJGID7054-68-19 22:42:00 Test Item Value Reference Range Interpretation Comments MPV (test code = MPV) 9.0 7.4-10.[address] [facility] CenterKozbslbHHYCRNUZEQ2568-34-34 22:42:00 Test Item Value Reference Range Interpretation Comments MCH (test code = MCH) 30.3 pg 27.0-31.[address] [facility] CenterNxcovvrNIZEUJTWPH3194-36-34 22:42:00 Test Item Value Reference Range Interpretation Comments MCHC (test code = MCHC) 33.5 32.0-36.[address] [facility] CenterQswcpelKYOMRCAYQY0346-79-64 22:42:00 Test Item Value Reference Range Interpretation Comments Platelet (test code = Platelet) 204 133-[address] [facility] [facility] CenterDulvrlvONPQUPDDXD0468-57-25 22:42:00 Test Item Value Reference Range Interpretation Comments RDW (test code = RDW) 12.0 11.5-14.[address] [facility] CenterBgaodwhHUTAQQFCKD6471-08-32 22:42:00 Test Item Value Reference Range Interpretation Comments RBC (test code = RBC) 4.38 4.70-6.[address] [facility] CenterIcllajdRJJYWKAOSM7111-83-12 22:42:00 Test Item Value Reference Range Interpretation Comments WBC (test code = WBC) 8.0 3.7-10.[address] [facility] CenterMwiwioyDFDAVYJRFL9375-25-29 22:42:00 Test Item Value Reference Range Interpretation Comments MCV (test code = MCV) 90.5 80.0-94.0 N [facility] BrookYmbzgwiUHELOHMIZ3801-83-26 22:42:00 Test Item Value Reference Range Interpretation Comments Calcium Lvl (test code = Calcium Lvl) 9.3 8.5-10.[address] [facility] CenterEoqtqcdUPVHYBFYJE2788-45-81 22:42:00 Test Item Value Reference Range Interpretation Comments Hgb (test code = Hgb) 13.3 14.0-18.[address] [facility] CenterFrdikcwISDBWIIGIM9818-45-94 22:42:00 Test Item Value Reference Range Interpretation Comments Hct (test code = Hct) 39.7 42.0-54.0 L [facility] BrookJllgrvbLLYCXUKYM0878-06-96 22:42:00 Test Item Value Reference Range Interpretation Comments BUN (test code = BUN) 13 7-22 N [facility] BrookAhgpzkhVEFNWTHRX3138-37-22 22:42:00 Test Item Value Reference Range Interpretation Comments CO2 (test code = CO2) 31 24-32 N [facility] BrookEgitxukMBSUECSWP6875-71-99 22:42:00 Test Item Value Reference Range Interpretation Comments Glucose Lvl (test code = Glucose Lvl) 83 70-99 N [facility] BrookXiirljxBQTFJZGON8312-25-98 22:42:00 Test Item Value Reference Range Interpretation Comments Calcium Lvl (test code = Calcium Lvl) 9.3 8.5-10.5 N [facility] BrookFoclmoxFKOQYMBCO4538-64-18 22:42:00 Test Item Value Reference Range Interpretation Comments CO2 (test code = CO2) 31 24-32 N [facility] BrookUynfburYBKMQHLEH9473-89-42 22:42:00 Test Item Value Reference Range Interpretation Comments AGAP (test code = AGAP) 11.0 10.0-20.0 N [facility] BrookLxnzfreEJEAZZUCS1680-85-85 22:42:00 Test Item Value Reference Range Interpretation Comments eGFR (test code = eGFR) 131 [facility] BrookRzmbdleRPBWSYLGZ1920-63-45 22:42:00 Test Item Value Reference Range Interpretation Comments Sodium Lvl (test code = Sodium Lvl) 140 135-145 N [facility] BrookZipubegCDWRHYKAU8180-45-22 22:42:00 Test Item Value Reference Range Interpretation Comments Creatinine Lvl (test code = Creatinine 0.7 0.5-1.4 N Lvl) [facility] BrookDtziqqaJSVYHKSXR9939-58-62 22:42:00 Test Item Value Reference Range Interpretation Comments Potassium Lvl (test code = Potassium 5.0 3.5-5.1 N Lvl) [facility] BrookXaoamewZHPOKWIYL7210-22-78 22:42:00 Test Item Value Reference Range Interpretation Comments Chloride Lvl (test code = Chloride Lvl) 103 95-109 N [facility] BrookGgbuunlOXSEUIMCL6440-88-69 22:42:00 Test Item Value Reference Range Interpretation Comments Phosphorus (test code = Phosphorus) 4.7 2.5-4.5 H [facility] BrookWiqchydJKAFQMGMY6601-49-79 22:42:00 Test Item Value Reference Range Interpretation Comments AGAP (test code = AGAP) 11.0 10.0-20.0 N [facility] BrookWltimgjACTEQJQXM5720-40-11 22:42:00 Test Item Value Reference Range Interpretation Comments Magnesium Lvl (test code = Magnesium 1.8 1.8-2.4 N Lvl) [facility] CenterGpmwuvdADGGWMALWF7853-39-43 22:42:00 Test Item Value Reference Range Interpretation Comments Basophils # (test code 0.1 See_Comment N [Aut omated message] The = Basophils #) system which generated this result tra nsmitted reference range : <=0.2. The reference r terri was not used to int erpret this result as normal/abnormal . [facility] CenterKlqwgzmRXQFQYCQLH8042-52-69 22:42:00 Test Item Value Reference Range Interpretation Comments Lymphocytes # (test code = Lymphocytes 2.5 1.0-5.5 N #) [facility] CenterZvggfzySLBUIMMSLR3672-05-92 22:42:00 Test Item Value Reference Range Interpretation Comments Basophils (test code = 0.7 See_Comment N [Aut omated message] The Basophils) system which ge nerated this result tra nsmitted reference range : <=1.0. The reference r terri was not used to int erpret this result as normal/abnormal . [facility] CenterDufqcbeGICEAOBKYU1505-32-17 22:42:00 Test Item Value Reference Range Interpretation Comments Monocytes # (test code 0.4 See_Comment N [Aut omated message] The = Monocytes #) system which generated this result tra nsmitted reference range : <=0.8. The reference r terri was not used to int erpret this result as normal/abnormal . [facility] CenterYsqmbxxIDJXOZJPFM8744-61-15 22:42:00 Test Item Value Reference Range Interpretation Comments Segs-Bands # (test code = Segs-Bands #) 4.9 1.5-8.[address] [facility] CenterHacupkeJDTNKMIVTE7877-52-88 22:42:00 Test Item Value Reference Range Interpretation Comments Eosinophils (test code = 1.0 See_Comment N [A utomated message] The Eosinophils) system which ge nerated this result tra nsmitted reference range : <=4.0. The reference r terri was not used to int erpret this result as normal/abnormal . [facility] CenterZbhaxgoBAAVVQJFMK6241-28-30 22:42:00 Test Item Value Reference Range Interpretation Comments Eosinophils # (test code 0.1 See_Comment N [A utomated message] The = Eosinophils #) system whic h generated this result tra nsmitted reference range : <=0.5. The reference r terri was not used to int erpret this result as normal/abnormal . [facility] CenterOjtidimFKEWTHTZLJ6524-32-44 22:42:00 Test Item Value Reference Range Interpretation Comments Monocytes (test code = Monocytes) 5.0 2.0-12.[address] [facility] CenterVaaztsnJBBSROTHXG4815-84-65 22:42:00 Test Item Value Reference Range Interpretation Comments Lymphocytes (test code = Lymphocytes) 31.3 20.0-40.0 N [facility] BrookRcskvwzSASNEJFMG2431-63-58 22:42:00 Test Item Value Reference Range Interpretation Comments eGFR (test code = eGFR) 131 [facility] GLUCOSE TMUFKLR8790-62-57 21:59:00 Test Item Value Reference Range Interpretation Comments Gluc POC [facility] (test code = Gluc POC 86 70-99 N [facility]) [facility] GLUCOSE [id number] 21:59:00 Test Item Value Reference Range Interpretation Comments Gluc POC [facility] (test code = Gluc POC 86 70-99 N [facility]) [facility] GLUCOSE [id number] 21:59:00 Test Item Value Reference Range Interpretation Comments Gluc POC [facility] (test code = Gluc POC 86 70-99 N [facility]) [facility] GLUCOSE [id number] 21:59:00 Test Item Value Reference Range Interpretation Comments Gluc POC [facility] (test code = Gluc POC 86 70-99 N [facility]) [facility] GLUCOSE [id number] 21:59:00 Test Item Value Reference Range Interpretation Comments Gluc POC [facility] (test code = Gluc POC 86 70-99 N [facility]) [facility] GLUCOSE [id number] 21:59:00 Test Item Value Reference Range Interpretation Comments Gluc POC [facility] (test code = Gluc POC 86 70-99 N [facility]) [facility] GLUCOSE [id number] 21:59:00 Test Item Value Reference Range Interpretation Comments Gluc POC [facility] (test code = Gluc POC 86 70-99 N [facility]) [facility] GLUCOSE [id number] 21:59:00 Test Item Value Reference Range Interpretation Comments Gluc POC [facility] (test code = Gluc POC 86 70-99 N [facility]) [facility] GLUCOSE [id number] 21:59:00 Test Item Value Reference Range Interpretation Comments Gluc POC [facility] (test code = Gluc POC 86 70-99 N [facility]) [facility] GLUCOSE KMWYEKM8930-08-01 21:59:00 Test Item Value Reference Range Interpretation Comments Gluc POC [facility] (test code = Gluc POC 86 70-99 N [facility]) [facility] GLUCOSE [id number] 21:59:00 Test Item Value Reference Range Interpretation Comments Gluc POC [facility]n (test code = Gluc POC 86 70-99 N [facility]) [facility]
[2023-04-30] MEDS ORDERED: NA CHLORIDE 0.9% 1,000 ML ONE (18:24)
[2023-04-30] MEDS ORDERED: LORazepam 2 MG/ML VIAL ONE (18:24)
[2023-04-30] MEDS ORDERED: LEVETIRACETAM 500 MG/5 ML VIAL IV ONE (18:49)
[2023-04-30] MEDS ORDERED: NA CHLORIDE 0.9% 100 ML ONE (18:49)
[2023-04-30 18:54] LABS: Absolute Lymphocytes (CBC) 2.6 K/uL (0.7-4.9); Hematocrit 43.6 % (39.6-49.0); Lymphocytes % 37.9 % (15.3-44.8); MCV 84.2 fL (80-100); MPV 8.8 fL (7.6-11.3); RBC Red Blood Cell Count 5.18 M/uL (4.33-5.43)
[2023-04-30 18:58] LABS: Protime INR 1.04
[2023-04-30 19:30] LABS: ALT/SGPT 40 U/L (16-61); AST/SGOT 26 U/L (15-37); Alkaline Phosphatase 71 U/L (45-117); BUN Blood Urea Nitrogen 12 mg/dL (7-18); Bicarbonate 26 mEq/L (21-32); Bilirubin Direct 0.1 mg/dL (0-0.2); Bilirubin Indirect, Calculated 0.5 mg/dL (0.2-0.8); Bilirubin Total 0.6 mg/dL (0.2-1.0); Glomerular Filtration Rate 114 ml/min (=/>90); Glucose Level 103 mg/dL (74-106); Potassium 3.4 mEq/L (3.5-5.1); Protein, Total 7.6 g/dL (6.4-8.2); Sodium Level 143 mEq/L (136-145)
--- NOTE | 2023-04-30 19:56 | ER ---
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 Coronavirus screen: Vaccine status: Patient me1 reports receiving the 2nd dose of the covid vaccine. Ebola Screen: No symptoms or risks identified at this time. Initial Sepsis Screen: Does the patient meet any 2 criteria? HR > 90 bpm. No. Patient's initial sepsis screen is negative. Does the patient have a suspected source of infection?. Risk Assessment: Do you want to hurt yourself or someone else? Patient reports no desire to harm self or others. Onset of symptoms was April 30, 2023. 17:50 Method Of Arrival: EMS: [place] [id number] 17:50 Acuity: PAUL[place] 3 [facility] [place] 18:03 Care prior to arrival: IV initiated. 20 GA, in the right antecubital area. ga1 Triage Assessment: 19:25 General: Appears comfortable, Behavior is calm. Pain: Denies pain. Neuro: Level of ha1 Consciousness is awake, alert, obeys commands, Oriented to person, place, time, situation. Cardiovascular: Patient's skin is warm and dry. Respiratory: Airway is patent Respiratory effort is even, unlabored, Respiratory pattern is regular, symmetrical. 19:25 Neuro: Reports seizure activity . GI: No signs and/or symptoms were reported involving ha1 the gastrointestinal system. Abdomen is flat, non-distended. Derm: Skin is healthy with good turgor, Skin is moist, Skin is normal. Musculoskeletal: Circulation, motion, and sensation intact. Range of motion: intact in all extremities. Historical: - Allergies: 17:53 No Known Allergies; me1 - Home Meds: 17:53 Keppra 1,000 mg oral tablet [Active]; divalproex 500 mg oral Tablet, Extended Release me1 24 hr 2 times per day [Active]; BuSpar Oral 15 mg twice a day for anxiety [Active]; Fycompa 8 mg oral tablet 1 tab every morning [Active]; - PMHx: 17:53 brain disorder; CVA; Seizure; me1 - PSHx: 17:53 Cholecystectomy; me1 - Immunization history:: Adult Immunizations up to date. - Social history:: Smoking status: Patient denies any tobacco usage or history of. Patient/guardian denies using alcohol, street drugs. Screenin:57 [facility] ED Fall Risk Assessment (Adult) Score/Fall Risk Level 0 - 2 = Low Risk. Abuse me1 screen: Denies threats or abuse. Nutritional screening: No deficits noted. Tuberculosis screening: No symptoms or risk factors identified. Assessment: 17:57 General: Appears comfortable, obese, Behavior is calm, cooperative, appropriate for me1 age. Pain: Denies pain. Neuro: Level of Consciousness is awake, alert, obeys commands, Oriented to person, place, time, situation. Cardiovascular: Capillary refill < 3 seconds is brisk Patient's skin is warm and dry. Respiratory: Respiratory effort is even, unlabored, Respiratory pattern is regular, symmetrical. 18:47 Neuro: Seizure activity Type of seizure: tonic-clonic seizure. Nurse called to bedside me1 by mother. Patient actively seizing, tonic clonic that lasted about 1 minute. Nurse at bedside and had 4 more seizures 2-3 minutes apart that each lasted about 30 seconds. Mother at bedside. Dr Ferrer informed, rec'd order for Keppra 1 gm IV x 1 now. . 19:00 Neuro: Seizure activity Type of seizure: tonic-clonic seizure. Seizure lasted me1 approximately 1 minutes. 19:01 Neuro: Seizure activity Type of seizure: tonic-clonic seizure. Seizure lasted me1 approximately .5 minutes. 19:15 Reassessment: see triage assessment. ha1 20:34 Reassessment: denies suicidal ideations. ha1 20:45 Reassessment: discharge pending on medication administration. ha1 21:00 Reassessment: Patient and/or family updated on plan of care and expected duration. Pain ha1 level reassessed. Patient is alert, oriented x 3, equal unlabored respirations, skin warm/dry/pink. receiving infusion of medication. 22:37 Reassessment: Patient and/or family updated on plan of care and expected duration. Pain ha1 level reassessed. Patient is alert, oriented x 3, equal unlabored respirations, skin warm/dry/pink. Vital Signs: 17:50 BP 146 / 113; Pulse 102; Resp 21; Temp 98.4(O); Pulse Ox 94% on R/A; Pain 0/10; me1 19:02 BP 134 / 91; Pulse 100; Resp 20; Pulse Ox 95% on R/A; me1 20:00 BP 140 / 92; Pulse 98; Resp 18 S; Pulse Ox 96% on R/A; ha1 21:00 BP 135 / 85; Pulse 92; Resp 18 S; Pulse Ox 95% on R/A; ha1 22:00 BP 129 / 85; Pulse 90; Resp 18 S; Pulse Ox 95% on R/A; ha1 17:50 Pain Scale: Adult me1 NIH Stroke Scale Scores: 19:51 NIHSS Score: 0 [facility] ED Course: 17:48 Patient arrived in ED. eb 17:48 Isaiah Ferrer MD is Attending Physician. annie 17:50 Liza Ventura RN is Primary Nurse. me1 17:53 Triage completed. me1 17:57 Patient has correct armband on for positive identification. Placed in gown. Bed in low me1 position. Side rails up X2. Seizure precautions initiated. Provided Education on: POC, patient and mother verbalized understanding. . 17:57 No provider procedures requiring assistance completed. me1 18:45 Acetaminophen Sent. me1 18:45 Basic Metabolic Panel Sent. me1 18:45 CBC with Diff Sent. me1 18:45 ETOH Level Sent. me1 18:45 Hepatic Function Sent. me1 18:45 PT-INR Sent. me1 18:45 Ptt, Activated Sent. me1 18:45 Salicylate Sent. me1 19:10 Arm band placed on right wrist. ha1 19:55 Satinder Arreola MD is Referral Physician. annie 20:11 CT Head Brain wo Cont In Process Unspecified. EDMS 22:39 IV discontinued, intact, bleeding controlled, No redness/swelling at site. Pressure ha1 dressing applied. Administered Medications: 18:25 Drug: NS 0.9% IV 1000 ml Route: IV; Rate: 1 bolus; Site: right antecubital; me1 18:25 Drug: Ativan IVP 2 mg Route: IVP; Site: right antecubital; me1 18:40 Drug: Keppra IV 1000 mg Route: IV; Rate: per protocol; Site: right antecubital; me1 18:55 Follow up: IV Status: Completed infusion; IV Intake: 100ml me1 21:00 Drug: Depacon IV 500 mg Volume: 5 ml; Route: IV; Rate: calculated rate; Site: right ha1 forearm; 22:39 Follow up: Response: No adverse reaction; IV Status: Completed infusion; IV Intake: ha1 500ml 21:07 Not Given (Physician Discretion): Valproic Acid PO 500 mg PO once ha1 21:07 Drug: Potassium PO Effervescent Tablet 25 mEq Route: PO; ha1 21:30 Follow up: Response: No adverse reaction ha1 Medication: 17:57 VIS not applicable for this client. me1 Intake: 18:55 IV: 100ml; Total: 100ml. me1 22:39 IV: 500ml; Total: 600ml. ha1 Outcome: 19:56 Discharge ordered by MD. annie 22:38 Discharged to home via wheelchair, with family. ha1 22:38 Condition: stable 22:38 Discharge instructions given to patient, family, Instructed on discharge instructions, follow up and referral plans. medication usage, Demonstrated understanding of instructions, follow-up care, medications, Prescriptions given X 2. 22:42 Patient left the ED. ha1 NIH Stroke Scale - NIH Stroke Score Date: 04/30/2023 Time: 19:51 Total Score = 0 10. Dysarthria (speech clarity - read or repeat words) - 0(Normal) 11. Extinction and Inattention (visual/tactile/auditory/spatial/personal) - 0(No abnormality) 1a. Level of Consciousness (LOC) - 0(Alert) 1b. Level of Consciousness (LOC) (Month \T\ Age) - 0(Both) 1c. LOC Commands (Open \T\ Closes Eyes/Motor Inspection Mechanic) - 0(Both) 2. Best Gaze (Lateral Gaze Paresis) - 0(Normal) 3. Visual Field Loss - 0(No visual loss) 4. Facial Palsy - 0(Normal) 5a. Left Arm: Motor (10-second hold) - 0(No drift) 5b. Right Arm: Motor (10-second hold) - 0(No drift) 6a. Left Leg: Motor (5-second hold - always test supine) - 0(No drift) 6b. Right Leg: Motor (5-second hold - always test supine) - 0(No drift) 7. Limb Ataxia (finger/nose \T\ heel/jennings - test with eyes open) - 0(Absent) 8. Sensory Loss (pinprick arms/legs/face) - 0(Normal) 9. Best Language: Aphasia (description/naming/reading) - 0(No aphasia) Initials: [facility] Signatures: Dispatcher [employer] EDIsaiah Stanley MD MD cha Botello, Elizabeth eb Ayala, Heidy, RN RN 1 Liza Ventura RN RN ga1 Corrections: (The following items were deleted from the chart) 19:04 19:03 IV Status: Completed infusion; IV Intake: 100ml me1 ga1 05/01 07:41 04/30 21:00 Reassessment: Patient and/or family updated on plan of care and ha1 expected duration. Pain level reassessed. Patient is alert, oriented x 3, equal unlabored respirations, skin warm/dry/pink. ha1
--- NOTE | 2023-04-30 19:56 | EDPHYS ---
Physician Documentation [facility] Name: Shan Faye Age: 37 yrs Sex: Male : 1985 Arrival Date: 04/30/2023 Time: 17:43 Bed 13 Private MD: CALUDE Physician Isaiah Ferrer HPI: 04/30 19:47 This 37 yrs old Male presents to ER via EMS with complaints of multiple annie seizures. 19:47 The patient presents with a history of multiple seizures, an unknown number. Character annie of seizure(s): Loss of consciousness: the patient experienced loss of consciousness, Motor activity: generalized, Incontinence: none, Apnea: the patient did not experience apnea, Circulation: the patient did not experience evidence of pulse disturbance. Seizure onset: just prior to arrival, today. Context: the seizure(s) was witnessed, by family, mother, occurred at home. Seizure Hx: Last seizure: The patient's last seizure was approximately 3 day(s) ago. Associated injury: The patient did not suffer any apparent associated injury. EMS care: none. The patient has experienced similar episodes in the past. Historical: - Allergies: 17:53 No Known Allergies; me1 - Home Meds: 17:53 Keppra 1,000 mg oral tablet [Active]; divalproex 500 mg oral Tablet, Extended Release me1 24 hr 2 times per day [Active]; BuSpar Oral 15 mg twice a day for anxiety [Active]; Fycompa 8 mg oral tablet 1 tab every morning [Active]; - PMHx: 17:53 brain disorder; CVA; Seizure; me1 - PSHx: 17:53 Cholecystectomy; me1 - Immunization history:: Adult Immunizations up to date. - Social history:: Smoking status: Patient denies any tobacco usage or history of. Patient/guardian denies using alcohol, street drugs. ROS: 19:51 Constitutional: Negative for fever, chills, and weight loss, Eyes: Negative for injury, annie pain, redness, and discharge, ENT: Negative for injury, pain, and discharge, Neck: Negative for injury, pain, and swelling, Cardiovascular: Negative for chest pain, palpitations, and edema, Respiratory: Negative for shortness of breath, cough, wheezing, and pleuritic chest pain, Abdomen/GI: Negative for abdominal pain, nausea, vomiting, diarrhea, and constipation, Back: Negative for injury and pain, : Negative for injury, bleeding, discharge, and swelling, MS/Extremity: Negative for injury and deformity, Skin: Negative for injury, rash, and discoloration, Psych: Negative for depression, anxiety, suicide ideation, homicidal ideation, and hallucinations, Allergy/Immunology: Negative for hives, rash, and allergies, Endocrine: Negative for neck swelling, polydipsia, polyuria, polyphagia, and marked weight changes, Hematologic/Lymphatic: Negative for swollen nodes, abnormal bleeding, and unusual bruising. 19:51 Neuro: Positive for seizure activity, weakness. Exam: 19:51 Constitutional: This is a well developed, well nourished patient who is awake, alert, annie and in no acute distress. Head/Face: Normocephalic, atraumatic. Eyes: Pupils equal round and reactive to light, extra-ocular motions intact. Lids and lashes normal. Conjunctiva and sclera are non-icteric and not injected. Cornea within normal limits. Periorbital areas with no swelling, redness, or edema. ENT: Nares patent. No nasal discharge, no septal abnormalities noted. Tympanic membranes are normal and external auditory canals are clear. Oropharynx with no redness, swelling, or masses, exudates, or evidence of obstruction, uvula midline. Mucous membranes moist. Neck: Trachea midline, no thyromegaly or masses palpated, and no cervical lymphadenopathy. Supple, full range of motion without nuchal rigidity, or vertebral point tenderness. No Meningismus. Chest/axilla: Normal chest wall appearance and motion. Nontender with no deformity. No lesions are appreciated. Cardiovascular: Regular rate and rhythm with a normal S1 and S2. No gallops, murmurs, or rubs. Normal PMI, no JVD. No pulse deficits. Respiratory: Lungs have equal breath sounds bilaterally, clear to auscultation and percussion. No rales, rhonchi or wheezes noted. No increased work of breathing, no retractions or nasal flaring. Abdomen/GI: Soft, non-tender, with normal bowel sounds. No distension or tympany. No guarding or rebound. No evidence of tenderness throughout. Back: No spinal tenderness. No costovertebral tenderness. Full range of motion. Male : Normal genitalia with no discharge or lesions. Skin: Warm, dry with normal turgor. Normal color with no rashes, no lesions, and no evidence of cellulitis. MS/ Extremity: Pulses equal, no cyanosis. Neurovascular intact. Full, normal range of motion. Neuro: Awake and alert, GCS 15, oriented to person, place, time, and situation. Cranial nerves II-XII grossly intact. Motor strength 5/5 in all extremities. Sensory grossly intact. Cerebellar exam normal. Normal gait. Psych: Awake, alert, with orientation to person, place and time. Behavior, mood, and affect are within normal limits. 19:51 Neuro: Orientation: appropriate for stated age, Mentation: slow to respond, Memory: appropriate for stated age, Cranial nerves: grossly normal, is grossly normal based on the patient's age, no acute changes, Cerebellar function: is grossly normal, is grossly normal based on the patient's age, no acute changes, Motor: is normal, Sensation: no obvious gross deficits, appropriate no acute changes, Gait: not tested. Deep tendon reflexes are 2+ (normal) in the bilateral brachioradialis, bicep, tricep and patellar and Achilles tendons, seizure activity, grand mal type is displayed. 20:32 ECG was reviewed by the Attending Physician. [facility] Vital Signs: 17:50 BP 146 / 113; Pulse 102; Resp 21; Temp 98.4(O); Pulse Ox 94% on R/A; Pain 0/10; me1 19:02 BP 134 / 91; Pulse 100; Resp 20; Pulse Ox 95% on R/A; me1 20:00 BP 140 / 92; Pulse 98; Resp 18 S; Pulse Ox 96% on R/A; ha1 21:00 BP 135 / 85; Pulse 92; Resp 18 S; Pulse Ox 95% on R/A; ha1 22:00 BP 129 / 85; Pulse 90; Resp 18 S; Pulse Ox 95% on R/A; ha1 17:50 Pain Scale: Adult me1 NIH Stroke Scale Scores: 19:51 NIHSS Score: 0 annie MDM: 17:49 Patient medically screened. [facility] 19:52 Differential Diagnosis altered mental status, sepsis. Differential diagnosis: cerebral annie vascular accident, drug overdose, cardiac arrhythmia, seizure, TIA. Data reviewed: vital signs, nurses notes, EMS record, lab test result(s), EKG, radiologic studies, CT scan, plain films. Consideration of Admission/Observation Escalation of care including admission/observation considered. Management of patient was discussed with the following: Fur Glosser: dr sierra. I considered the following discharge prescriptions or medication management in the emergency department Medications were administered in the Emergency Department. See MAR. Independent interpretation of the following test(s) in the Emergency Department EKG: See my EKG interpretation above. Test considered but Not performed: MRI: no mri brain. Care significantly affected by the following chronic conditions: brain do, cva, todds, seizures. Counseling: I had a detailed discussion with the patient and/or guardian regarding: the historical points, exam findings, and any diagnostic results supporting the discharge/admit diagnosis, lab results, radiology results, the need for outpatient follow up, for definitive care, a family practitioner, a neurologist. 04/30 17:51 Order name: Acetaminophen; Complete Time: 19:54 [facility] 04/30 17:51 Order name: Basic Metabolic Panel; Complete Time: 19:54 [facility] 04/30 17:51 Order name: CBC with Diff; Complete Time: 19:19 [facility] 04/30 17:51 Order name: ETOH Level; Complete Time: 19:54 [facility] 04/30 17:51 Order name: Hepatic Function; Complete Time: 19:54 [facility] 04/30 17:51 Order name: PT-INR; Complete Time: 19:19 [facility] 04/30 17:51 Order name: Ptt, Activated; Complete Time: 19:19 [facility] 04/30 17:51 Order name: Salicylate; Complete Time: 19:54 [facility] 04/30 18:13 Order name: Depakote; Complete Time: 19:19 [facility] 04/30 18:43 Order name: CT Head Brain wo Cont; Complete Time: 20:27 [facility] 04/30 17:51 Order name: EKG; Complete Time: 17:52 [facility] 04/30 17:51 Order name: EKG - Nurse/Tech; Complete Time: 20:33 [facility] 04/30 17:51 Order name: IV Saline Lock; Complete Time: 18:04 [facility] 04/30 17:51 Order name: Labs collected and sent; Complete Time: 20:33 [facility] 04/30 17:51 Order name: Suicide Screening ([place]); Complete Time: 20:33 [facility] 04/30 17:52 Order name: Seizure Precautions; Complete Time: 18:04 annie EC:32 Rate is 89 beats/min. Rhythm is regular. QRS [place] is Normal. NM interval is normal. QRS annie interval is normal. QT interval is normal. No Q waves. T waves are Normal. No ST changes noted. Clinical impression: Normal ECG and No evidence of ischemia. Interpreted by me. Reviewed by me. Administered Medications: 18:25 Drug: NS 0.9% IV 1000 ml Route: IV; Rate: 1 bolus; Site: right antecubital; wv1 18:25 Drug: Ativan IVP 2 mg Route: IVP; Site: right antecubital; me1 18:40 Drug: Keppra IV 1000 mg Route: IV; Rate: per protocol; Site: right antecubital; wv1 18:55 Follow up: IV Status: Completed infusion; IV Intake: 100ml wv1 21:00 Drug: Depacon IV 500 mg Volume: 5 ml; Route: IV; Rate: calculated rate; Site: right ha1 forearm; 22:39 Follow up: Response: No adverse reaction; IV Status: Completed infusion; IV Intake: ha1 500ml 21:07 Not Given (Physician Discretion): Valproic Acid PO 500 mg PO once ha1 21:07 Drug: Potassium PO Effervescent Tablet 25 mEq Route: PO; ha1 21:30 Follow up: Response: No adverse reaction ha1 Disposition Summary: 04/30/23 19:56 Discharge Ordered Location: Home annie Problem: new annie Symptoms: have improved annie Condition: Stable annie Diagnosis - Epileptic seizures related to external causes, 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 annie Depakote Level - Other seizures - Pseudoseizures annie - Hypokalemia annie Followup: annie - With: Private Physician - When: 2 - 3 days - Reason: Recheck today's complaints, Continuance of care, Re-evaluation by your physician Followup: annie - With: Satinder Sierra MD - When: 2 - 3 days - Reason: Recheck today's complaints, Re-evaluation by your physician Discharge Instructions: - Discharge Summary Sheet annie - Potassium Content of Foods annie - Seizure, Adult, Sjki-nt-Cemp annie - Hypokalemia annie Forms: - Medication Reconciliation Form annie - Thank You Letter annie - Antibiotic Education annie - Prescription Opioid Use annie - Patient Portal Instructions annie - Work release form ha1 Prescriptions: - Depakote 500 mg Oral Tablet - take 1 tablet by ORAL route every 12 hours; 60 tablet; Refills: 0, Product annie Selection Permitted - Keppra 500 mg Oral Tablet - take 2 tablet by ORAL route every 12 hours; 60 tablet; Refills: 0, Product annie Selection Permitted NIH Stroke Scale - NIH Stroke Score Date: 04/30/2023 Time: 19:51 Total Score = 0 10. Dysarthria (speech clarity - read or repeat words) - 0(Normal) 11. Extinction and Inattention (visual/tactile/auditory/spatial/personal) - 0(No abnormality) 1a. Level of Consciousness (LOC) - 0(Alert) 1b. Level of Consciousness (LOC) (Month \T\ Age) - 0(Both) 1c. LOC Commands (Open \T\ Closes Eyes/Court Usher) - 0(Both) 2. Best Gaze (Lateral Gaze Paresis) - 0(Normal) 3. Visual Field Loss - 0(No visual loss) 4. Facial Palsy - 0(Normal) 5a. Left Arm: Motor (10-second hold) - 0(No drift) 5b. Right Arm: Motor (10-second hold) - 0(No drift) 6a. Left Leg: Motor (5-second hold - always test supine) - 0(No drift) 6b. Right Leg: Motor (5-second hold - always test supine) - 0(No drift) 7. Limb Ataxia (finger/nose \T\ heel/jennings - test with eyes open) - 0(Absent) 8. Sensory Loss (pinprick arms/legs/face) - 0(Normal) 9. Best Language: Aphasia (description/naming/reading) - 0(No aphasia) Initials: [facility] Signatures: Dispatcher [employer] Isaiah Erwin MD MD cha Ayala, Heidy, RN RN ha1 Liza Ventura RN RN me1
--- NOTE | 2023-04-30 20:17 | RAD REPORT ---
EXAM DESCRIPTION: CT - Head Brain Wo Cont - 04/30/2023 8:09 pm CLINICAL HISTORY: Seizure COMPARISON: April 23, 2023 TECHNIQUE: Computed axial tomography of the head was obtained. IV contrast was not requested. All CT scans are performed using dose optimization technique as appropriate and may include automated exposure control or mA/KV adjustment according to patient size. FINDINGS: An intracranial bleed is not seen The ventricles are normal in caliber No extra-axial fluid collection is noted. 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 IMPRESSION: No acute intracranial abnormality is seen If patient's symptoms persist MRI of the brain would be recommended
[2023-04-30] MEDS ORDERED: VALPROATE NA 500 MG/5 ML INJ IV ONE (20:30)
[2023-04-30] MEDS ORDERED: POTASSIUM 25 MEQ EFFERV TAB ONE (20:30)
[2023-04-30] MEDS ORDERED: NA CHLORIDE 0.9% 500 ML ONE (21:01)
[2023-04-30 22:49] VITALS: TEMP 98.4
[2023-04-30 22:54] VITALS: O2SAT 95
[2023-04-30 22:56] VITALS: BP 129/85
--- NOTE | 2023-05-02 13:14 | EKG ---
Test Date: 2023-04-30 Test Time: 20:15:09 Cashier Manager: BETSEY MEASUREMENT RESULTS: Intervals: Rate: 89 AR: 166 QRSD: 90 QT: 366 QTc: 445 [place]: P: 48 AR: 166 QRS: 26 T: 41 INTERPRETIVE STATEMENTS: Normal sinus rhythm Normal ECG Compared to ECG 04/21/2023 20:54:54 No significant changes Electronically Signed On 05-02-23 13:11:52 CDT by Medhat Fernandes
== END 2023-04-30 22:42 | disposition home or self-care (01) ==
LOC: ER 17:43
DX: G40.509 Epileptic seizures related to external causes, not intractable, without status epilepticus (principal); E87.6 Hypokalemia; R89.2 Abnormal level of other drugs, medicaments and biological substances in specimens from other organs, systems and tissues; Z86.73 Personal history of transient ischemic attack (TIA), and cerebral infarction without residual deficits
CPT/HCPCS: 96365; 93005; 85025; 80048; 36415; 85610; 80076; 80164; 85730; 70450; 96375; 99284; 96366; 80143; 80179; 82077; J1953; J7040; J7030

== ENCOUNTER 2023-08-28 17:58 | Emergency (ER) | payer OTHER ==
--- OUTSIDE RECORDS SUMMARY | 2023-08-28 18:06 | XMS REPORT | Continuity of Care Document ---
:[address] [facility] t Address [address] [place] [address] Care Team Providers Name Role Phone Jethro Allen Attending Clinician Unavailable Payers Payer Name Policy Type Policy Number Effective Date Expiration Date S joaquín [place] [id number] 2015 [employer] 00:00:00 [facility] Problems Condition Condition Condition Status Onset Resolution Last Treating Co mments Source Name Details Category Date Date Treatment Clinician Date SEIZURES SEIZURES Diagnosis Active 2011-102012-08-20 Memoria Active 10-20 17:32:00 l 08/20/2012 00:00: Jake denise [address] [id number] Type 2 Problem Active Common diabetes Spirit mellitus - [facility] with [facility] [id number] IRENE Problem Active Common (generaliz Spirit ed anxiety - [facility] disorder) [facility] [id number] Current Problem Active Common moderate Spirit episode of - [facility] major depressive [facility] disorder Medical [facility] prior episode [id number] Bipolar Problem Active Commo n affective Spirit disorder, - [facility] currently 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 Social History Social Habit Start Date Stop Date Quantity Comments Source History of Tobacco [facility] - Use [facility] Sexual orientation [facility] Sex Assigned At [birth year] [facility] 00:00:00 00:00:00 [facility] Smoking Status Start Date Stop Date Source Never Smoker [facility] - [facility] Medications Ordered Filled Start Stop Current Ordering Indication Dosage Frequency Signature Comments Components Source Medication Medication Date Date Medication? Clinician (SIG) Name Name [facility] 2011-10 Yes Tatyana 750 mg, 3 Mem [...] Jessica tab, PO, l enteric 05:41: Jose Dvaid BID, 100 H ermann coated 33 tab, [...] Chambers mL, Route: l Chloride 03:49: IVPB, [place] 0.9% IV 50 00 ONCE, mL Start [...] Chambers mL, Route: l Chloride 03:49: IVPB, [place] 0.9% IV 50 00 ONCE, mL Start date: 08/20/12 21:49:00, Stop date: 08/20/12 21:49:00 Depacon + 2011-10 No Terri A 500 mg, 5 Memoria Sodium 1-18 Chambers mL, Route: l Chloride 03:49: IVPB, [place] 0.9% IV 50 00 ONCE, mL Start [...] Chambers mL, Route: l Chloride 03:49: IVPB, [place] 0.9% IV 50 00 ONCE, mL Start date: 08/20/12 21:49:00, Stop date: 08/20/12 21:49:00 Depacon + 2011-10 No Terri A 500 mg, 5 Memoria Sodium 1-18 Chambers mL, Route: l Chloride 03:49: IVPB, [place] 0.9% IV 50 00 ONCE, mL Start date: 08/20/12 21:49:00, Stop date: 08/20/12 21:49:00 Depakote 2011-10 No Tatyana 500 mg, Memor ia 1-18 Jessica Route: IV, l 03:17: Jose David ONCE, [place] 00 Dosing Weight 72.727, kg, Start date: [...] Route: IV, l 03:17: Jose David ONCE, [place] 00 Dosing Weight 72.727, kg, Start date: [...] kg, Start date: 08/20/12 21:17:00, Stop date: 08/20/12:17:00 Depakote 2011-10 No Tatyana 500 mg, Memor [...] tab, PO, l tablet, 22:02: BID, 30 [place] extended 13 tab, release Substituti on Allowed, ERTAB Depakote ER 2011-10 Yes 500 mg, 1 M emoria 500 mg oral 1-17 tab, PO, l tablet, 22:02: BID, 30 [place] extended 13 tab, release Substituti on Allowed, ERTAB Depakote ER 2011-10 Yes 500 mg, 1 M emoria 500 mg oral 1-17 tab, PO, l tablet, 22:02: BID, 30 [place] extended 13 tab, release Substituti on Allowed, ERTAB Depakote ER 2011-10 Yes 500 mg, 1 M emoria 500 mg oral 1-17 tab, PO, l tablet, 22:02: BID, 30 [place] extended 13 tab, release Substituti on Allowed, [...] tab, PO, l tablet, 22:02: BID, 30 [place] extended 13 tab, release Substituti on Allowed, [...] tab, PO, l tablet, 22:02: BID, 30 [place] extended 13 tab, release Substituti on Allowed, ERTAB Depakote ER 2011-10 Yes 500 mg, 1 M emoria 500 mg oral 1-17 tab, PO, l tablet, 22:02: BID, 30 [place] extended 13 tab, release Substituti on Allowed, [...] BID Fycompa 10 Common MG MG MG [facility] BusPIRone BusPIRone No 1{table TID BusPIRone Common HCl 5 MG HCl 5 MG t} HCl 5 MG Spi rit [facility] Lantus 100 Lantus 100 No BID Lantus 100 Common UNIT/ML UNIT/ML UNIT/ML [facility] Citalopram Citalopram No 1{table QD Citalopram Common Hydrobromid Hydrobromid t} Hydrobromi Spirit e 20 MG e 20 MG de 20 MG [facility] Latuda 20 Latuda 20 No 1{table QD Latuda 20 Common MG MG t} MG [facility] Keppra Keppra No Keppra Common [facility] Fycompa 10 Fycompa 10 No BID Fycompa 10 MG MG MG busPIRone busPIRone No 1{table TID busPIRone HCl 5 MG HCl 5 MG t} HCl 5 MG Lantus 100 Lantus 100 No BID Lantus 100 UNIT/ML UNIT/ML UNIT/ML Citalopram Citalopram No 1{table QD Citalopram Hydrobromid Hydrobromid t} Hydrobromi e 20 MG e 20 MG de 20 MG Latuda 20 Latuda 20 No 1{table QD Latuda 20 MG MG t} MG Keppra Keppra No Keppra Fycompa 10 Fycompa 10 No BID Fycompa 10 MG MG MG Lantus 100 Lantus 100 No BID Lantus 100 UNIT/ML UNIT/ML UNIT/ML Eliquis 5 Eliquis 5 No 1{table BID Eliquis 5 MG MG t} MG Vital Signs Vital Name Observation Time Observation Value Comments Source height 2020-10-15 10:20:00 65 [in_i] [facility] weight 2020-10-15 10:20:00 180 [lb_av] [facility] temperature 2020-10-15 10:20:00 98.7 [degF] [facility] bmi 2020-10-15 10:20:00 29.95 kg/m2 [facility] blood pressure 2020-10-15 10:20:00 131 mm[Hg] [facility] - systolic [facility] blood pressure 2020-10-15 10:20:00 74 mm[Hg] [facility] - diastolic [facility] Weight 2012-08-20 21:07:00 [facility] Height 2012-08-20 21:07:00 165.10 cm [facility] Procedures This patient has no known procedures. Encounters Start End Encounter Admission Attending Care Care Encounter Source Date/Time Date/Time Type Type Clinicians Facility Department ID 2023-04-22 [facility] [id number] [facility] 00:[facility]:00 Encounter [facility] 2023-04-22 [facility] [id number] [facility] 00:00:00 Encounter [facility] 2023-03-02 Outpatient CBRIDGE CBRIDGE [id number] CareBri 09:57:18 [id number] dge [id number] 2022-12-04 Outpatient Alejandro [facility] [id number] Common 11:14:01 [facility] [id number] [facility] 2022-07-02 Outpatient [facility] [id number] [place] 04:48:12 [id number] [facility] 2021-10-29 Outpatient Allen, STLMLC STLMLC [id number] Common 12:21:25 [facility] [address] [facility] 2021-10-29 Outpatient Allen, STLMLC STLMLC [id number] Common 12:19:51 [facility] [address] [facility] 2021-10-29 Outpatient Allen, STLMLC STLMLC [id number] Common 12:16:00 [facility] [id number] [facility] 2022-12-04 2022-12-04 (TEL) STLMLC STLMLC [id number] Co mmon 00:00:00 00:00:00 [facility] 2020-10-15 2020-10-15 OFFICE STLMLC STLMLC [id number] Co mmon 00:00:00 00:00:00 VISIT [facility] PT LEVEL 3 [facility] 2020-09-25 2020-09-25 (TEL) STLMLC STLMLC [id number] Co mmon 00:00:00 00:00:00 [facility] 2012-08-20 2012-08-20 Emergency nullFlavo [facility] [id number] Memoria 15:06:00 23:52:00 r Medical [address] [place] [address] 2012-08-20 2012-08-20 Emergency nullFlavo [facility] [id number] Memoria 15:06:00 23:52:[address] Results Test Description Test Time Test Comments Results Result Comments Source CHEMISTRY 2012-08-20 22:46:00 Test Item Value Reference Range Interpretation Comme nts Valproic Acid Lvl (test code = Valproic Acid Lvl) 128 50-1 00 [facility]juPKSLZPZIF8440-01-89 22:46:00 Test Item Value Reference Range Interpretation Comments Valproic Acid Lvl (test code = Valproic 128 50-100 H Acid Lvl) [facility]kgpjenGYHTHNGUQ1134-15-36 22:46:00 Test Item Value Reference Range Interpretation Comments Valproic Acid Lvl (test code = Valproic 128 50-100 H Acid Lvl) [facility] HospitalOoatbrhTIDBNIURI4652-72-44 22:46:00 Test Item Value Reference Range Interpretation Comments Valproic Acid Lvl (test code = Valproic 128 50-100 H Acid Lvl) [facility] HospitalGzybrkbROXABOMCU3691-57-73 22:46:00 Test Item Value Reference Range Interpretation Comments Valproic Acid Lvl (test code = Valproic 128 50-100 H Acid Lvl) [facility] HospitalPgdeyyfRBFALGOKL3149-42-09 22:46:00 Test Item Value Reference Range Interpretation Comments Valproic Acid Lvl (test code = Valproic 128 50-100 H Acid Lvl) [facility] HospitalHiwqlugFBAGDUVAR5315-06-21 22:46:00 Test Item Value Reference Range Interpretation Comments Valproic Acid Lvl (test code = Valproic 128 50-100 H Acid Lvl) [facility] HospitalUfamtipUZTNDPXWU1045-66-34 22:46:00 Test Item Value Reference Range Interpretation Comments Valproic Acid Lvl (test code = Valproic 128 50-100 H Acid Lvl) [facility] HospitalQlezgadJBFGXLJXO6542-80-85 22:46:00 Test Item Value Reference Range Interpretation Comments Valproic Acid Lvl (test code = Valproic 128 50-100 H Acid Lvl) [facility] HospitalPkycuazEEQVXNZKW6689-70-93 22:46:00 Test Item Value Reference Range Interpretation Comments Valproic Acid Lvl (test code = Valproic 128 50-100 H Acid Lvl) [facility] HospitalAiqrrqwVDEOVWRUR4478-97-83 22:46:00 Test Item Value Reference Range Interpretation Comments Valproic Acid Lvl (test code = Valproic 128 50-100 H Acid Lvl) [facility] HospitalZzpwkkfXNWWIFKHF7149-03-04 22:46:00 Test Item Value Reference Range Interpretation Comments Valproic Acid Lvl (test code = Valproic 128 50-100 H Acid Lvl) [facility] HospitalPbchzssPTYOODHZA1413-82-57 22:46:00 Test Item Value Reference Range Interpretation Comments Valproic Acid Lvl (test code = Valproic 128 50-100 H Acid Lvl) [facility] HospitalPrsnlznKINZEODXZ3453-91-27 22:42:00 Test Item Value Reference Range Interpretation Comments AGAP (test code = AGAP) 11.0 10.0-20.[address] [facility] HospitalFgzfhodJYDXRXIBM5030-91-90 22:42:00 Test Item Value Reference Range Interpretation Comments Magnesium Lvl (test code = Magnesium 1.8 1.8-2.4 N Lvl) [facility]LtoibfsKQRJECMNED9370-54-36 22:42:00 Test Item Value Reference Range Interpretation Comments Basophils # (test code 0.1 See_Comment N [Aut omated message] The = Basophils #) system which generated this result tra nsmitted reference range : <=0.2. The reference r terri was not used to int erpret this result as normal/abnormal . [facility] NorthwestDzfspuaOGCWHNTGDU7456-44-59 22:42:00 Test Item Value Reference Range Interpretation Comments Lymphocytes # (test code = Lymphocytes 2.5 1.0-5.5 N #) [facility] NorthwestIqeicjhJMQIPPFXGK3671-05-94 22:42:00 Test Item Value Reference Range Interpretation Comments Basophils (test code = 0.7 See_Comment N [Aut omated message] The Basophils) system which ge nerated this result tra nsmitted reference range : <=1.0. The reference r terri was not used to int erpret this result as normal/abnormal . [facility] NorthwestGsbcgqcLSSEGATLVU9784-34-51 22:42:00 Test Item Value Reference Range Interpretation Comments Monocytes # (test code 0.4 See_Comment N [Aut omated message] The = Monocytes #) system which generated this result tra nsmitted reference range : <=0.8. The reference r terri was not used to int erpret this result as normal/abnormal . [facility] NorthwestRwoakjuTIWAZKTKVX1043-68-31 22:42:00 Test Item Value Reference Range Interpretation Comments Segs-Bands # (test code = Segs-Bands #) 4.9 1.5-8.1 N [facility] NorthwestOdxywoiZPHMWMMHGM1996-83-99 22:42:00 Test Item Value Reference Range Interpretation Comments Eosinophils (test code = 1.0 See_Comment N [A utomated message] The Eosinophils) system which ge nerated this result tra nsmitted reference range : <=4.0. The reference r terri was not used to int erpret this result as normal/abnormal . [facility] NorthwestSzvaeoxUEGNQAOHNJ6600-36-33 22:42:00 Test Item Value Reference Range Interpretation Comments Eosinophils # (test code 0.1 See_Comment N [A utomated message] The = Eosinophils #) system whic h generated this result tra nsmitted reference range : <=0.5. The reference r terri was not used to int erpret this result as normal/abnormal . [facility] NorthwestQcmnrcnQFXEPERPBT6210-08-24 22:42:00 Test Item Value Reference Range Interpretation Comments Monocytes (test code = Monocytes) 5.0 2.0-12.0 N [facility] NorthwestJhwueanVGEVDIVXDD4865-00-55 22:42:00 Test Item Value Reference Range Interpretation Comments Lymphocytes (test code = Lymphocytes) 31.3 20.0-40.[address] [facility] HospitalAzsytshJNOUSZBOV0912-59-70 22:42:00 Test Item Value Reference Range Interpretation Comments eGFR (test code = eGFR) 131 [facility] NorthwestPawumroOIZREVZPWK5997-17-52 22:42:00 Test Item Value Reference Range Interpretation Comments Segs (test code = Segs) 62.0 45.0-75.0 N [facility] NorthwestYdjyqczFWKPYKPFRI0385-88-18 22:42:00 Test Item Value Reference Range Interpretation Comments MPV (test code = MPV) 9.0 7.4-10.4 N [facility] NorthwestJanfttrPNOPSAKTHO2099-71-08 22:42:00 Test Item Value Reference Range Interpretation Comments MCH (test code = MCH) 30.3 pg 27.0-31.0 N [facility] NorthwestOrmdzrbKZVHFGZBVZ9035-98-88 22:42:00 Test Item Value Reference Range Interpretation Comments MCHC (test code = MCHC) 33.5 32.0-36.0 N [facility] NorthwestDrxnypfNBSYXVGHPV1451-73-86 22:42:00 Test Item Value Reference Range Interpretation Comments Platelet (test code = Platelet) 204 133-450 N [facility] NorthwestCzhcuocIGWSDHJXAR5945-83-54 22:42:00 Test Item Value Reference Range Interpretation Comments RDW (test code = RDW) 12.0 11.5-14.5 N [facility] NorthwestUdlxkrdABVPTGPFBQ9980-29-04 22:42:00 Test Item Value Reference Range Interpretation Comments RBC (test code = RBC) 4.38 4.70-6.10 L [facility] NorthwestAcpubduYXZFHTJZYV4925-57-38 22:42:00 Test Item Value Reference Range Interpretation Comments WBC (test code = WBC) 8.0 3.7-10.4 N [facility] NorthwestJhztgbtVYQSCIRFAF9132-82-24 22:42:00 Test Item Value Reference Range Interpretation Comments MCV (test code = MCV) 90.5 80.0-94.0 N [place] [address]-11-17 22:42:00 Test Item Value Reference Range Interpretation Comments Hgb (test code = Hgb) 13.3 14.0-18.[address] HospitalIadbvkhVVXEAWOCN9221-50-31 22:42:00 Test Item Value Reference Range Interpretation Comments Sodium Lvl (test code = Sodium Lvl) 140 135-145 N [facility] NorthwestJyegzwgRNOWOPKJDH4106-59-51 22:42:00 Test Item Value Reference Range Interpretation Comments Hct (test code = Hct) 39.7 42.0-54.[address] HospitalRgkjbwkALGBAFCCZ0305-12-89 22:42:00 Test Item Value Reference Range Interpretation Comments BUN (test code = BUN) 13 7-[address] [facility] HospitalEfygmnaLLABFLHYZ7921-06-53 22:42:00 Test Item Value Reference Range Interpretation Comments Glucose Lvl (test code = Glucose Lvl) 83 70-[address] [facility] HospitalBjtloysPIRJGIWAK3579-67-54 22:42:00 Test Item Value Reference Range Interpretation Comments Creatinine Lvl (test code = Creatinine 0.7 0.5-1.4 N Lvl) [facility] HospitalQfkajseNMJEBFSKD2903-46-30 22:42:00 Test Item Value Reference Range Interpretation Comments Calcium Lvl (test code = Calcium Lvl) 9.3 8.5-10.[address] [facility] HospitalYvrjapiSJCZSTIDB5976-32-26 22:42:00 Test Item Value Reference Range Interpretation Comments CO2 (test code = CO2) 31 24-[address] [facility] HospitalJjpjjawTCMKSRBNT2464-08-53 22:42:00 Test Item Value Reference Range Interpretation Comments AGAP (test code = AGAP) 11.0 10.0-20.[address] [facility] HospitalLkwcqrnDUJGWRKEM9256-86-32 22:42:00 Test Item Value Reference Range Interpretation Comments eGFR (test code = eGFR) [address] [facility] HospitalYmxqvziSPUMZYWOZ6365-89-50 22:42:00 Test Item Value Reference Range Interpretation Comments Sodium Lvl (test code = Sodium Lvl) 140 135-[address] [facility] HospitalEfxsuwzKIGUNKEBE2552-57-41 22:42:00 Test Item Value Reference Range Interpretation Comments Creatinine Lvl (test code = Creatinine 0.7 0.5-1.4 N Lvl) [facility] HospitalMbnkxvgCTWQMKOTI3885-23-86 22:42:00 Test Item Value Reference Range Interpretation Comments Potassium Lvl (test code = Potassium 5.0 3.5-5.1 N Lvl) [facility] HospitalRjrnebdORAIICCSJ4535-49-78 22:42:00 Test Item Value Reference Range Interpretation Comments Chloride Lvl (test code = Chloride Lvl) 103 95-[address] [facility] [facility] HospitalIpaxflcUVUOOHNRB1935-40-80 22:42:00 Test Item Value Reference Range Interpretation Comments Phosphorus (test code = Phosphorus) 4.7 2.5-4.[address] [facility] HospitalIvvcvivCCBZJPZRJ8346-19-39 22:42:00 Test Item Value Reference Range Interpretation Comments Magnesium Lvl (test code = Magnesium 1.8 1.8-2.4 N Lvl) [facility] HospitalCfpvosoNTYLBEJCD5052-46-15 22:42:00 Test Item Value Reference Range Interpretation Comments Potassium Lvl (test code = Potassium 5.0 3.5-5.1 N Lvl) [facility] NorthwestAtwfooyJHOTKCHLVL4918-12-27 22:42:00 Test Item Value Reference Range Interpretation Comments Basophils # (test code 0.1 See_Comment N [Aut omated message] The = Basophils #) system which generated this result tra nsmitted reference range : <=0.2. The reference r terri was not used to int erpret this result as normal/abnormal . [facility] NorthwestSjmsuodBNFMTPXFCG4013-72-75 22:42:00 Test Item Value Reference Range Interpretation Comments Lymphocytes # (test code = Lymphocytes 2.5 1.0-5.5 N #) [facility] NorthwestTsqawoaCOEKCYYALG7824-11-58 22:42:00 Test Item Value Reference Range Interpretation Comments Basophils (test code = 0.7 See_Comment N [Aut omated message] The Basophils) system which ge nerated this result tra nsmitted reference range : <=1.0. The reference r terri was not used to int erpret this result as normal/abnormal . [facility] NorthwestTybixfhEZFCTAMVQM6723-36-22 22:42:00 Test Item Value Reference Range Interpretation Comments Monocytes # (test code 0.4 See_Comment N [Aut omated message] The = Monocytes #) system which generated this result tra nsmitted reference range : <=0.8. The reference r terri was not used to int erpret this result as normal/abnormal . [facility] NorthwestUwtsggyMHCEDXAPTP6490-56-13 22:42:00 Test Item Value Reference Range Interpretation Comments Segs-Bands # (test code = Segs-Bands #) 4.9 1.5-8.1 N [facility] NorthwestUcgsowjXGNJJHKXMI3461-45-59 22:42:00 Test Item Value Reference Range Interpretation Comments Eosinophils (test code = 1.0 See_Comment N [A utomated message] The Eosinophils) system which ge nerated this result tra nsmitted reference range : <=4.0. The reference r terri was not used to int erpret this result as normal/abnormal . [facility] NorthwestNcvqxnhGIEOMVVBXY4656-04-16 22:42:00 Test Item Value Reference Range Interpretation Comments Eosinophils # (test code 0.1 See_Comment N [A utomated message] The = Eosinophils #) system whic h generated this result tra nsmitted reference range : <=0.5. The reference r terri was not used to int erpret this result as normal/abnormal . [facility] NorthwestKmhxyibLJNCZHVCBT5929-63-73 22:42:00 Test Item Value Reference Range Interpretation Comments Monocytes (test code = Monocytes) 5.0 2.0-12.0 N [facility] NorthwestPdfchpvLDZUPTQHHO6721-23-25 22:42:00 Test Item Value Reference Range Interpretation Comments Lymphocytes (test code = Lymphocytes) 31.3 20.0-40.0 N [facility] NorthwestMbkduhhXTZBDZFUDA4935-50-38 22:42:00 Test Item Value Reference Range Interpretation Comments Segs (test code = Segs) 62.0 45.0-75.0 N [facility]ZenswtnAQVDTSZRL8372-46-31 22:42:00 Test Item Value Reference Range Interpretation Comments Chloride Lvl (test code = Chloride Lvl) 103 95-109 N [facility] HospitalVabptgcLUJIZFJTWO9581-46-54 22:42:00 Test Item Value Reference Range Interpretation Comments MPV (test code = MPV) 9.0 7.4-10.4 N [facility] NorthwestMsbirllXNOTBXJDSP6106-40-60 22:42:00 Test Item Value Reference Range Interpretation Comments MCH (test code = MCH) 30.3 pg 27.0-31.0 N [facility] NorthwestAodbovfXXRPSJTSXL6020-17-60 22:42:00 Test Item Value Reference Range Interpretation Comments MCHC (test code = MCHC) 33.5 32.0-36.0 N [facility] NorthwestRiomqnsYRCVJQPVPW2916-76-33 22:42:00 Test Item Value Reference Range Interpretation Comments Platelet (test code = Platelet) 204 133-450 N [facility] NorthwestJckczefWNLSTFNPLR8733-58-31 22:42:00 Test Item Value Reference Range Interpretation Comments RDW (test code = RDW) 12.0 11.5-14.5 N [facility] NorthwestVaqkfeaHDHHYVSUZG1213-91-39 22:42:00 Test Item Value Reference Range Interpretation Comments RBC (test code = RBC) 4.38 4.70-6.10 L [facility] NorthwestOsdciwiVKVNSUWCGE0471-57-22 22:42:00 Test Item Value Reference Range Interpretation Comments WBC (test code = WBC) 8.0 3.7-10.4 N [facility] NorthwestGqwbnmeDSJERKQXGM8219-87-93 22:42:00 Test Item Value Reference Range Interpretation Comments MCV (test code = MCV) 90.5 80.0-94.0 N [facility] NorthwestErhgsmoBRNSFDYYHJ7405-09-48 22:42:00 Test Item Value Reference Range Interpretation Comments Hgb (test code = Hgb) 13.3 14.0-18.0 L [facility] NorthwestZtxfvlkSHKVLERNLY4959-25-69 22:42:00 Test Item Value Reference Range Interpretation Comments Hct (test code = Hct) 39.7 42.0-54.[address] [facility] HospitalQfrisfiZQJPVFMBG0109-01-35 22:42:00 Test Item Value Reference Range Interpretation Comments Phosphorus (test code = Phosphorus) 4.7 2.5-4.[address] [facility] HospitalHpyqrjsNQAEDQGVN8216-09-23 22:42:00 Test Item Value Reference Range Interpretation Comments BUN (test code = BUN) 13 7-[address] [facility] [facility] HospitalFcbggozUCRTPBQOQ5467-07-35 22:42:00 Test Item Value Reference Range Interpretation Comments Glucose Lvl (test code = Glucose Lvl) 83 70-[address] [facility] HospitalNvwnactUKGLSJTWD4217-93-31 22:42:00 Test Item Value Reference Range Interpretation Comments Calcium Lvl (test code = Calcium Lvl) 9.3 8.5-10.[address] HospitalOybywqcPIMFPTRTS2996-24-46 22:42:00 Test Item Value Reference Range Interpretation Comments Magnesium Lvl (test code = Magnesium 1.8 1.8-2.4 N Lvl) [facility] HospitalItkvfjmSEWRWEDJP2930-83-05 22:42:00 Test Item Value Reference Range Interpretation Comments CO2 (test code = CO2) 31 24-[address] [facility] HospitalFmpmvmwHWAJVRQLI4259-51-74 22:42:00 Test Item Value Reference Range Interpretation Comments AGAP (test code = AGAP) 11.0 10.0-20.[address] [facility] [facility]DsfzeowIENFLKOWH2317-40-57 22:42:00 Test Item Value Reference Range Interpretation Comments eGFR (test code = eGFR) [address] [facility] [facility] HospitalUqcweznVUAUXXFFW7910-68-81 22:42:00 Test Item Value Reference Range Interpretation Comments Sodium Lvl (test code = Sodium Lvl) 140 135-[address] [facility] [facility] HospitalBgwucbxYVGMTLYVU5487-85-43 22:42:00 Test Item Value Reference Range Interpretation Comments Creatinine Lvl (test code = Creatinine 0.7 0.5-1.4 N Lvl) [facility] HospitalGnjijkhGBNDHEKGH5648-94-54 22:42:00 Test Item Value Reference Range Interpretation Comments Potassium Lvl (test code = Potassium 5.0 3.5-5.1 N Lvl) [facility] HospitalXntplsbBQPIGPSTY7060-95-10 22:42:00 Test Item Value Reference Range Interpretation Comments Chloride Lvl (test code = Chloride Lvl) 103 95-[address] [facility] HospitalOpkjgpoMIDZEEYWB2129-61-03 22:42:00 Test Item Value Reference Range Interpretation Comments Phosphorus (test code = Phosphorus) 4.7 2.5-4.[address] [facility] HospitalAcbsknyLJLUWGFEW8393-81-66 22:42:00 Test Item Value Reference Range Interpretation Comments Magnesium Lvl (test code = Magnesium 1.8 1.8-2.4 N Lvl) [facility] NorthwestPzgrpjdLQLPHAFQCJ3342-14-13 22:42:00 Test Item Value Reference Range Interpretation Comments Basophils # (test code 0.1 See_Comment N [Aut omated message] The = Basophils #) system which generated this result tra nsmitted reference range : <=0.2. The reference r terri was not used to int erpret this result as normal/abnormal . [facility] NorthwestBknsruxFQUVQZJVYX8555-59-78 22:42:00 Test Item Value Reference Range Interpretation Comments Basophils # (test code 0.1 See_Comment N [Aut omated message] The = Basophils #) system which generated this result tra nsmitted reference range : <=0.2. The reference r terri was not used to int erpret this result as normal/abnormal . [facility] NorthwestLajgmrsRIPLQTPHRT2483-88-38 22:42:00 Test Item Value Reference Range Interpretation Comments Lymphocytes # (test code = Lymphocytes 2.5 1.0-5.5 N #) [facility] NorthwestWiubaomLXOAURSAIL6313-32-06 22:42:00 Test Item Value Reference Range Interpretation Comments Basophils (test code = 0.7 See_Comment N [Aut omated message] The Basophils) system which ge nerated this result tra nsmitted reference range : <=1.0. The reference r terri was not used to int erpret this result as normal/abnormal . [facility] NorthwestJgnvffwYECUNOBCWA8431-25-44 22:42:00 Test Item Value Reference Range Interpretation Comments Monocytes # (test code 0.4 See_Comment N [Aut omated message] The = Monocytes #) system which generated this result tra nsmitted reference range : <=0.8. The reference r terri was not used to int erpret this result as normal/abnormal . [facility] NorthwestRkidowqRTNJNKLHGE4164-41-67 22:42:00 Test Item Value Reference Range Interpretation Comments Segs-Bands # (test code = Segs-Bands #) 4.9 1.5-8.1 N [facility] NorthwestTgubdokSTGILAYWNJ8756-26-72 22:42:00 Test Item Value Reference Range Interpretation Comments Eosinophils (test code = 1.0 See_Comment N [A utomated message] The Eosinophils) system which ge nerated this result tra nsmitted reference range : <=4.0. The reference r terri was not used to int erpret this result as normal/abnormal . [facility] NorthwestZzuyhwwQUJGBTHDTQ3908-97-60 22:42:00 Test Item Value Reference Range Interpretation Comments Eosinophils # (test code 0.1 See_Comment N [A utomated message] The = Eosinophils #) system [facility] h generated this result tra nsmitted reference range : <=0.5. The reference r terri was not used to int erpret this result as normal/abnormal . [facility] NorthwestAjlblbtLIDNGOBOOQ4019-51-03 22:42:00 Test Item Value Reference Range Interpretation Comments Monocytes (test code = Monocytes) 5.0 2.0-12.0 N [facility] NorthwestOkmzclzSFZNPEVICJ5464-33-26 22:42:00 Test Item Value Reference Range Interpretation Comments Lymphocytes (test code = Lymphocytes) 31.3 20.0-40.0 N [facility] NorthwestAppwyazVKJGHURRBG5079-62-53 22:42:00 Test Item Value Reference Range Interpretation Comments Segs (test code = Segs) 62.0 45.0-75.0 N [facility] NorthwestTpmkcluZYCJVTAGPC6399-78-62 22:42:00 Test Item Value Reference Range Interpretation Comments MPV (test code = MPV) 9.0 7.4-10.4 N [facility] NorthwestLohtprjXEZSMVNHQK9383-73-28 22:42:00 Test Item Value Reference Range Interpretation Comments Lymphocytes # (test code = Lymphocytes 2.5 1.0-5.5 N #) [facility] NorthwestZrbgczcALNULIDPMA8936-63-18 22:42:00 Test Item Value Reference Range Interpretation Comments MCH (test code = MCH) 30.3 pg 27.0-31.0 N [facility] NorthwestXfwwwdzWLPYZCJKUD7169-43-81 22:42:00 Test Item Value Reference Range Interpretation Comments MCHC (test code = MCHC) 33.5 32.0-36.0 N [facility] NorthwestPqyukxqRFRYXXCUQX5525-64-91 22:42:00 Test Item Value Reference Range Interpretation Comments Platelet (test code = Platelet) 204 133-450 N [facility] NorthwestMqidqrqARHZWJAGJP1220-53-92 22:42:00 Test Item Value Reference Range Interpretation Comments RDW (test code = RDW) 12.0 11.5-14.5 N [facility] NorthwestHqkdvacDYXYVTWRFT4827-13-58 22:42:00 Test Item Value Reference Range Interpretation Comments RBC (test code = RBC) 4.38 4.70-6.10 L [facility] NorthwestYklqfazRGUQKMPZMF3184-37-49 22:42:00 Test Item Value Reference Range Interpretation Comments WBC (test code = WBC) 8.0 3.7-10.4 N [facility] NorthwestCplmroaPSTQAMLMAE9606-80-88 22:42:00 Test Item Value Reference Range Interpretation Comments MCV (test code = MCV) 90.5 80.0-94.0 N [facility] NorthwestKsdmlqhYSVBCEICSR7287-36-31 22:42:00 Test Item Value Reference Range Interpretation Comments Hgb (test code = Hgb) 13.3 14.0-18.0 L [facility] NorthwestLfyresmOHSLHXRDWZ8461-36-70 22:42:00 Test Item Value Reference Range Interpretation Comments Hct (test code = Hct) 39.7 42.0-54.0 L [facility] NorthwestMupbwcjUWAZXIUIYH1027-18-01 22:42:00 Test Item Value Reference Range Interpretation Comments Basophils (test code = 0.7 See_Comment N [Aut omated message] The Basophils) system which ge nerated this result tra nsmitted reference range : <=1.0. The reference r terri was not used to int erpret this result as normal/abnormal . [facility] HospitalCoznagzCWYMTVAZJ5157-81-77 22:42:00 Test Item Value Reference Range Interpretation Comments BUN (test code = BUN) 13 7-[address] [facility] HospitalTdlaqsvCCQIJVBVO1729-53-98 22:42:00 Test Item Value Reference Range Interpretation Comments Glucose Lvl (test code = Glucose Lvl) 83 70-[address] [facility] HospitalHajjexaVSSNWHVNF0038-04-35 22:42:00 Test Item Value Reference Range Interpretation Comments Calcium Lvl (test code = Calcium Lvl) 9.3 8.5-10.[address] [facility] HospitalZaohxurLEBSKAGOQ9668-68-34 22:42:00 Test Item Value Reference Range Interpretation Comments CO2 (test code = CO2) 31 24-32 N [facility] NorthwestJxhcolqVCQIDHUMTG7952-17-26 22:42:00 Test Item Value Reference Range Interpretation Comments Monocytes # (test code 0.4 See_Comment N [Aut omated message] The = Monocytes #) system which generated this result tra nsmitted reference range : <=0.8. The reference r terri was not used to int erpret this result as normal/abnormal . [facility] HospitalZywkgpzCKZOUSAMS8622-21-90 22:42:00 Test Item Value Reference Range Interpretation Comments AGAP (test code = AGAP) 11.0 10.0-20.[address] [facility] HospitalVlvgowkJYKZEGYJI6824-19-44 22:42:00 Test Item Value Reference Range Interpretation Comments eGFR (test code = eGFR) [address] [facility] [facility] HospitalKeguscgCKQDPILMH3848-73-05 22:42:00 Test Item Value Reference Range Interpretation Comments Sodium Lvl (test code = Sodium Lvl) 140 135-[address] [facility] HospitalNmydumyNLZHOZTZD1521-42-41 22:42:00 Test Item Value Reference Range Interpretation Comments Creatinine Lvl (test code = Creatinine 0.7 0.5-1.4 N Lvl) [facility] HospitalJekaqhaWAZVOZRKW2655-27-02 22:42:00 Test Item Value Reference Range Interpretation Comments Potassium Lvl (test code = Potassium 5.0 3.5-5.1 N Lvl) [facility] HospitalLuffrkjPTZWMTXYW2249-75-59 22:42:00 Test Item Value Reference Range Interpretation Comments Chloride Lvl (test code = Chloride Lvl) 103 95-[address] [facility] HospitalWdlaomjUARAISHLE4559-11-26 22:42:00 Test Item Value Reference Range Interpretation Comments Phosphorus (test code = Phosphorus) 4.7 2.5-4.[address] [facility] HospitalFablpydQIIYJUDQZ3673-31-25 22:42:00 Test Item Value Reference Range Interpretation Comments Magnesium Lvl (test code = Magnesium 1.8 1.8-2.4 N Lvl) [facility] NorthwestPfwwdtpBSKASFNVBF8015-74-73 22:42:00 Test Item Value Reference Range Interpretation Comments Basophils # (test code 0.1 See_Comment N [Aut omated message] The = Basophils #) system which generated this result tra nsmitted reference range : <=0.2. The reference r terri was not used to int erpret this result as normal/abnormal . [facility] NorthwestLyxaiiwNXGRKNLIRU0145-67-62 22:42:00 Test Item Value Reference Range Interpretation Comments Lymphocytes # (test code = Lymphocytes 2.5 1.0-5.5 N #) [facility] NorthwestFrclgmzEUBXYDLARG0451-26-73 22:42:00 Test Item Value Reference Range Interpretation Comments Segs-Bands # (test code = Segs-Bands #) 4.9 1.5-8.1 N [facility] NorthwestXfpidirOYZURQYSBG6497-09-98 22:42:00 Test Item Value Reference Range Interpretation Comments Basophils (test code = 0.7 See_Comment N [Aut omated message] The Basophils) system which ge nerated this result tra nsmitted reference range : <=1.0. The reference r terri was not used to int erpret this result as normal/abnormal . [facility] NorthwestTmdmjlbNJSXKCBYMJ5455-56-17 22:42:00 Test Item Value Reference Range Interpretation Comments Monocytes # (test code 0.4 See_Comment N [Aut omated message] The = Monocytes #) system which generated this result tra nsmitted reference range : <=0.8. The reference r terri was not used to int erpret this result as normal/abnormal . [facility] NorthwestAonbrflAGEOLJIYBR5313-23-71 22:42:00 Test Item Value Reference Range Interpretation Comments Segs-Bands # (test code = Segs-Bands #) 4.9 1.5-8.1 N [facility] NorthwestYziibczSACSLRCUTT6977-30-81 22:42:00 Test Item Value Reference Range Interpretation Comments Eosinophils (test code = 1.0 See_Comment N [A utomated message] The Eosinophils) system which ge nerated this result tra nsmitted reference range : <=4.0. The reference r terri was not used to int erpret this result as normal/abnormal . [place] [address]-11-17 22:42:00 Test Item Value Reference Range Interpretation Comments Eosinophils # (test code 0.1 See_Comment N [A utomated message] The = Eosinophils #) system whic h generated this result tra nsmitted reference range : <=0.5. The reference r terri was not used to int erpret this result as normal/abnormal . [facility] NorthwestRwfpxzbBWYPHODTRD0703-55-73 22:42:00 Test Item Value Reference Range Interpretation Comments Monocytes (test code = Monocytes) 5.0 2.0-12.0 N [facility] NorthwestTguawtcMQDLTBDZDO0010-59-53 22:42:00 Test Item Value Reference Range Interpretation Comments Lymphocytes (test code = Lymphocytes) 31.3 20.0-40.0 N [facility] NorthwestQvyijozJJTUBWFUCP6931-92-06 22:42:00 Test Item Value Reference Range Interpretation Comments Segs (test code = Segs) 62.0 45.0-75.0 N [facility] NorthwestMtfvycgNGAOGQKMTV7880-78-28 22:42:00 Test Item Value Reference Range Interpretation Comments MPV (test code = MPV) 9.0 7.4-10.4 N [place] [address]-11-17 22:42:00 Test Item Value Reference Range Interpretation Comments MCH (test code = MCH) 30.3 pg 27.0-31.0 N [facility] NorthwestDfdqdafYJRNAGYRVN2109-26-68 22:42:00 Test Item Value Reference Range Interpretation Comments Eosinophils (test code = 1.0 See_Comment N [A utomated message] The Eosinophils) system which ge nerated this result tra nsmitted reference range : <=4.0. The reference r terri was not used to int erpret this result as normal/abnormal . [facility] NorthwestEewispwDMEWNERZBT9185-53-43 22:42:00 Test Item Value Reference Range Interpretation Comments MCHC (test code = MCHC) 33.5 32.0-36.0 N [facility] NorthwestJvsnfkeISRHYVESHF4241-47-63 22:42:00 Test Item Value Reference Range Interpretation Comments Platelet (test code = Platelet) 204 133-450 N [facility] NorthwestFrhiehkLOTKMUOLTM9260-81-79 22:42:00 Test Item Value Reference Range Interpretation Comments RDW (test code = RDW) 12.0 11.5-14.5 N [facility] NorthwestAsztvfuNFXDZSLTDK0220-94-77 22:42:00 Test Item Value Reference Range Interpretation Comments RBC (test code = RBC) 4.38 4.70-6.10 L [facility] NorthwestVoqwfkcOYBABXMVGN0243-75-97 22:42:00 Test Item Value Reference Range Interpretation Comments WBC (test code = WBC) 8.0 3.7-10.4 N [facility] NorthwestSlbkhfpEKBVBGUQIV2006-62-44 22:42:00 Test Item Value Reference Range Interpretation Comments MCV (test code = MCV) 90.5 80.0-94.0 N [facility] NorthwestVmagleiUAYSAWTKSJ2322-36-82 22:42:00 Test Item Value Reference Range Interpretation Comments Hgb (test code = Hgb) 13.3 14.0-18.0 L [facility] NorthwestNjeczmmPFGARLVYMZ8615-08-27 22:42:00 Test Item Value Reference Range Interpretation Comments Hct (test code = Hct) 39.7 42.0-54.0 L [facility] NorthwestEoottuqRMIWPAMMUC0289-64-40 22:42:00 Test Item Value Reference Range Interpretation Comments Eosinophils # (test code 0.1 See_Comment N [A utomated message] The = Eosinophils #) system whic h generated this result tra nsmitted reference range : <=0.5. The reference r terri was not used to int erpret this result as normal/abnormal . [facility] HospitalLloesmmVVAWMXADE4286-78-05 22:42:00 Test Item Value Reference Range Interpretation Comments BUN (test code = BUN) 13 7-[address] [facility] HospitalWzxgqpjLHAMFZHHA8720-05-89 22:42:00 Test Item Value Reference Range Interpretation Comments Glucose Lvl (test code = Glucose Lvl) 83 70-[address] [facility] HospitalObzvpckUSAMIADQP6268-73-39 22:42:00 Test Item Value Reference Range Interpretation Comments Calcium Lvl (test code = Calcium Lvl) 9.3 8.5-10.[address] [facility] HospitalDeuauqpQDRZTSGZW8196-59-77 22:42:00 Test Item Value Reference Range Interpretation Comments CO2 (test code = CO2) 31 24-[address] [facility] HospitalUfpgwfeMOBAJWLJS1980-69-49 22:42:00 Test Item Value Reference Range Interpretation Comments AGAP (test code = AGAP) 11.0 10.0-20.0 N [facility] NorthwestZsdlwahBDURPGPJFR3573-99-94 22:42:00 Test Item Value Reference Range Interpretation Comments Monocytes (test code = Monocytes) 5.0 2.0-12.[address] HospitalPwiiwqlLNUEVUHJG3473-64-60 22:42:00 Test Item Value Reference Range Interpretation Comments eGFR (test code = eGFR) [address] [facility] [facility] HospitalJjgshkdPWNIVSAFQ0660-09-07 22:42:00 Test Item Value Reference Range Interpretation Comments Sodium Lvl (test code = Sodium Lvl) 140 135-[address] [facility] HospitalQrejxhtONXNFEFRB4233-65-76 22:42:00 Test Item Value Reference Range Interpretation Comments Creatinine Lvl (test code = Creatinine 0.7 0.5-1.4 N Lvl) [facility] HospitalHehvbdfSPGWRNWKX8947-36-95 22:42:00 Test Item Value Reference Range Interpretation Comments Potassium Lvl (test code = Potassium 5.0 3.5-5.1 N Lvl) [facility] HospitalHkqqoiyIMHDFPURW7850-91-96 22:42:00 Test Item Value Reference Range Interpretation Comments Chloride Lvl (test code = Chloride Lvl) 103 95-[address] HospitalOdklzqsMFCSIUROV7959-11-50 22:42:00 Test Item Value Reference Range Interpretation Comments Phosphorus (test code = Phosphorus) 4.7 2.5-4.[address] HospitalOgucrbxLHLXBGZQL2734-50-03 22:42:00 Test Item Value Reference Range Interpretation Comments Magnesium Lvl (test code = Magnesium 1.8 1.8-2.4 N Lvl) [facility] NorthwestSjecgmmNJLXROKIHB4586-86-06 22:42:00 Test Item Value Reference Range Interpretation Comments Basophils # (test code 0.1 See_Comment N [Aut omated message] The = Basophils #) system which generated this result tra nsmitted reference range : <=0.2. The reference r terri was not used to int erpret this result as normal/abnormal . [facility] NorthwestRyfkygkRYNSZQPSDT9223-22-91 22:42:00 Test Item Value Reference Range Interpretation Comments Lymphocytes # (test code = Lymphocytes 2.5 1.0-5.5 N #) [facility] NorthwestUhnobzaOPUEUKHLCW5095-19-16 22:42:00 Test Item Value Reference Range Interpretation Comments Basophils (test code = 0.7 See_Comment N [Aut omated message] The Basophils) system which ge nerated this result tra nsmitted reference range : <=1.0. The reference r terri was not used to int erpret this result as normal/abnormal . [facility] NorthwestVoelhiiMFGEODQLLZ7546-51-16 22:42:00 Test Item Value Reference Range Interpretation Comments Lymphocytes (test code = Lymphocytes) 31.3 20.0-40.0 N [facility] NorthwestCneoyjpJSRHKOIHEY3310-37-68 22:42:00 Test Item Value Reference Range Interpretation Comments Monocytes # (test code 0.4 See_Comment N [Aut omated message] The = Monocytes #) system which generated this result tra nsmitted reference range : <=0.8. The reference r terri was not used to int erpret this result as normal/abnormal . [facility] NorthwestUfsoojkNCUOBGMFTG7507-93-06 22:42:00 Test Item Value Reference Range Interpretation Comments Segs-Bands # (test code = Segs-Bands #) 4.9 1.5-8.1 N [facility] NorthwestHotdqlkWJXDLRHITO4668-23-00 22:42:00 Test Item Value Reference Range Interpretation Comments Eosinophils (test code = 1.0 See_Comment N [A utomated message] The Eosinophils) system which ge nerated this result tra nsmitted reference range : <=4.0. The reference r terri was not used to int erpret this result as normal/abnormal . [facility] NorthwestXtzmfyeACCPTNLWZS5399-63-94 22:42:00 Test Item Value Reference Range Interpretation Comments Eosinophils # (test code 0.1 See_Comment N [A utomated message] The = Eosinophils #) system whic h generated this result tra nsmitted reference range : <=0.5. The reference r terri was not used to int erpret this result as normal/abnormal . [facility] NorthwestEpqmtklETAUIWSYFT8316-23-04 22:42:00 Test Item Value Reference Range Interpretation Comments Monocytes (test code = Monocytes) 5.0 2.0-12.0 N [facility] NorthwestPwgykxvDNKVBXPUCB3942-01-38 22:42:00 Test Item Value Reference Range Interpretation Comments Lymphocytes (test code = Lymphocytes) 31.3 20.0-40.0 N [place] 801542-11-17 22:42:00 Test Item Value Reference Range Interpretation Comments Segs (test code = Segs) 62.0 45.0-75.0 N [facility] NorthwestHmtiytxGKWSQRUIEQ9343-01-26 22:42:00 Test Item Value Reference Range Interpretation Comments MPV (test code = MPV) 9.0 7.4-10.4 N [facility] NorthwestCqvnncnWUWXUIEQGN7680-55-54 22:42:00 Test Item Value Reference Range Interpretation Comments MCH (test code = MCH) 30.3 pg 27.0-31.0 N [facility] NorthwestUqoclscWXBJGLVFXM3612-35-75 22:42:00 Test Item Value Reference Range Interpretation Comments MCHC (test code = MCHC) 33.5 32.0-36.0 N [facility] NorthwestBfpkalsDTTPUSSMLV2239-02-22 22:42:00 Test Item Value Reference Range Interpretation Comments Segs (test code = Segs) 62.0 45.0-75.0 N [facility] NorthwestReuzyutOXKWQKWVPW4472-61-53 22:42:00 Test Item Value Reference Range Interpretation Comments Platelet (test code = Platelet) 204 133-450 N [facility] NorthwestYnofsprKVFSZGRTZJ6842-79-58 22:42:00 Test Item Value Reference Range Interpretation Comments RDW (test code = RDW) 12.0 11.5-14.5 N [facility] NorthwestBypnufjWEWWJFCNML0960-36-22 22:42:00 Test Item Value Reference Range Interpretation Comments RBC (test code = RBC) 4.38 4.70-6.10 L [facility] NorthwestAprkphrXMAWRORLGS0911-70-32 22:42:00 Test Item Value Reference Range Interpretation Comments WBC (test code = WBC) 8.0 3.7-10.4 N [facility] NorthwestVlzshwpJTPEWHCNOL0731-76-27 22:42:00 Test Item Value Reference Range Interpretation Comments MCV (test code = MCV) 90.5 80.0-94.0 N [facility] NorthwestLqlqqovLQRVAGFUNS2529-33-62 22:42:00 Test Item Value Reference Range Interpretation Comments Hgb (test code = Hgb) 13.3 14.0-18.0 L [facility] NorthwestPjvveinFAQULGFEKK8133-64-92 22:42:00 Test Item Value Reference Range Interpretation Comments Hct (test code = Hct) 39.7 42.0-54.0 L [facility] NorthwestGlmfujmIXXAMNWIQV6305-61-03 22:42:00 Test Item Value Reference Range Interpretation Comments MPV (test code = MPV) 9.0 7.4-10.[address] [facility] HospitalJrzkkypUSNEDRSDN4936-45-44 22:42:00 Test Item Value Reference Range Interpretation Comments BUN (test code = BUN) 13 7-[address] [facility] HospitalLxameqvBNXKMDDOP6846-97-60 22:42:00 Test Item Value Reference Range Interpretation Comments Glucose Lvl (test code = Glucose Lvl) 83 70-[address] [facility] HospitalJhpchqgIUQYBBXAN9457-40-55 22:42:00 Test Item Value Reference Range Interpretation Comments Calcium Lvl (test code = Calcium Lvl) 9.3 8.5-10.[address] HospitalKrbmntwLOJJUFQYV6782-27-92 22:42:00 Test Item Value Reference Range Interpretation Comments CO2 (test code = CO2) 31 24-[address] HospitalTxhqkkcZQEMKMDSI1177-56-22 22:42:00 Test Item Value Reference Range Interpretation Comments AGAP (test code = AGAP) 11.0 10.0-20.[address] [facility] HospitalDkbdmquCPABQSKUF7879-92-36 22:42:00 Test Item Value Reference Range Interpretation Comments eGFR (test code = eGFR) 131 [facility] NorthwestXgnowjnWKDADUEGVA9455-67-23 22:42:00 Test Item Value Reference Range Interpretation Comments MCH (test code = MCH) 30.3 pg 27.0-31.[address] [facility] HospitalMqczfqoENKQEWCFB0155-22-93 22:42:00 Test Item Value Reference Range Interpretation Comments Sodium Lvl (test code = Sodium Lvl) 140 135-[address] [facility] HospitalTfgymhfLAYWTRCPV6243-85-10 22:42:00 Test Item Value Reference Range Interpretation Comments Creatinine Lvl (test code = Creatinine 0.7 0.5-1.4 N Lvl) [facility] HospitalZwcaqzwQBMNQDPWN5341-94-33 22:42:00 Test Item Value Reference Range Interpretation Comments Potassium Lvl (test code = Potassium 5.0 3.5-5.1 N Lvl) [facility] HospitalCgfsgmmOKQHQPWIZ4446-08-18 22:42:00 Test Item Value Reference Range Interpretation Comments Chloride Lvl (test code = Chloride Lvl) 103 95-[address] [facility] HospitalDqtqgngMOJNULUCB7036-64-27 22:42:00 Test Item Value Reference Range Interpretation Comments Phosphorus (test code = Phosphorus) 4.7 2.5-4.[address] [facility] HospitalLleiflwFMJPDSXSV5720-92-03 22:42:00 Test Item Value Reference Range Interpretation Comments Magnesium Lvl (test code = Magnesium 1.8 1.8-2.4 N Lvl) [facility] NorthwestJhdjfxgYDQZHLMPDQ6871-41-38 22:42:00 Test Item Value Reference Range Interpretation Comments Basophils # (test code 0.1 See_Comment N [Aut omated message] The = Basophils #) system which generated this result tra nsmitted reference range : <=0.2. The reference r terri was not used to int erpret this result as normal/abnormal . [facility] NorthwestJiohuocDWFSMAOVDW0458-11-62 22:42:00 Test Item Value Reference Range Interpretation Comments Lymphocytes # (test code = Lymphocytes 2.5 1.0-5.5 N #) [facility] NorthwestQzqnbhzEVJSJJECOB7534-25-49 22:42:00 Test Item Value Reference Range Interpretation Comments Basophils (test code = 0.7 See_Comment N [Aut omated message] The Basophils) system which ge nerated this result tra nsmitted reference range : <=1.0. The reference r terri was not used to int erpret this result as normal/abnormal . [facility] NorthwestXdgihqrZELXGXFKFJ7351-69-64 22:42:00 Test Item Value Reference Range Interpretation Comments Monocytes # (test code 0.4 See_Comment N [Aut omated message] The = Monocytes #) system which generated this result tra nsmitted reference range : <=0.8. The reference r terri was not used to int erpret this result as normal/abnormal . [facility] NorthwestHitdatnRAEVOPHOCM5040-66-39 22:42:00 Test Item Value Reference Range Interpretation Comments MCHC (test code = MCHC) 33.5 32.0-36.0 N [facility] NorthwestEyadcygAFSRXYMXUW2432-59-51 22:42:00 Test Item Value Reference Range Interpretation Comments Segs-Bands # (test code = Segs-Bands #) 4.9 1.5-8.1 N [facility] NorthwestLwrsozxAANYIWJXWV3806-86-38 22:42:00 Test Item Value Reference Range Interpretation Comments Eosinophils (test code = 1.0 See_Comment N [A utomated message] The Eosinophils) system which ge nerated this result tra nsmitted reference range : <=4.0. The reference r terri was not used to int erpret this result as normal/abnormal . [facility] NorthwestTblhzehGOGCATHIAW2810-27-57 22:42:00 Test Item Value Reference Range Interpretation Comments Eosinophils # (test code 0.1 See_Comment N [A utomated message] The = Eosinophils #) system whic h generated this result tra nsmitted reference range : <=0.5. The reference r terri was not used to int erpret this result as normal/abnormal . [facility] NorthwestAlnchnzQFANZEITZB6358-64-85 22:42:00 Test Item Value Reference Range Interpretation Comments Monocytes (test code = Monocytes) 5.0 2.0-12.0 N [facility] NorthwestOqihsvaBLWFAUWZVB2236-53-64 22:42:00 Test Item Value Reference Range Interpretation Comments Lymphocytes (test code = Lymphocytes) 31.3 20.0-40.0 N [facility] NorthwestVsopeaiFYGAWUBYLY6826-90-25 22:42:00 Test Item Value Reference Range Interpretation Comments Segs (test code = Segs) 62.0 45.0-75.0 N [facility] NorthwestRogjbwsYJHRDMOIDL9368-97-52 22:42:00 Test Item Value Reference Range Interpretation Comments MPV (test code = MPV) 9.0 7.4-10.4 N [facility] NorthwestDexftftKDUTMPWRGB2759-77-36 22:42:00 Test Item Value Reference Range Interpretation Comments MCH (test code = MCH) 30.3 pg 27.0-31.0 N [facility] NorthwestUmhucpsCXJSRLUZAX4319-49-46 22:42:00 Test Item Value Reference Range Interpretation Comments MCHC (test code = MCHC) 33.5 32.0-36.0 N [facility] NorthwestRpnaitdNGDXZHZEED2008-96-20 22:42:00 Test Item Value Reference Range Interpretation Comments Platelet (test code = Platelet) 204 133-450 N [facility] NorthwestXpwidrlYKUONIICEG4596-06-53 22:42:00 Test Item Value Reference Range Interpretation Comments Platelet (test code = Platelet) 204 133-450 N [facility] NorthwestZsmujxsGNYEGCLISO5258-59-89 22:42:00 Test Item Value Reference Range Interpretation Comments RDW (test code = RDW) 12.0 11.5-14.5 N [facility] NorthwestBwawgzcEYAASXVNGY3447-98-24 22:42:00 Test Item Value Reference Range Interpretation Comments RBC (test code = RBC) 4.38 4.70-6.10 L [facility] NorthwestEdngtizSJIYBBADFJ6375-28-03 22:42:00 Test Item Value Reference Range Interpretation Comments WBC (test code = WBC) 8.0 3.7-10.4 N [facility] NorthwestUtoycprGDOFJVKYAB4627-34-83 22:42:00 Test Item Value Reference Range Interpretation Comments MCV (test code = MCV) 90.5 80.0-94.0 N [facility] NorthwestEscjfyfEIIUJGVDGZ7752-08-29 22:42:00 Test Item Value Reference Range Interpretation Comments Hgb (test code = Hgb) 13.3 14.0-18.0 L [facility] NorthwestFrizpwgFDNSLJRMMJ5434-38-69 22:42:00 Test Item Value Reference Range Interpretation Comments Hct (test code = Hct) 39.7 42.0-54.0 L [facility] NorthwestVehbfdkGZPAEAGKMV3057-07-36 22:42:00 Test Item Value Reference Range Interpretation Comments RDW (test code = RDW) 12.0 11.5-14.[address] [facility] HospitalItzuarfJFWKFUCQP7388-18-83 22:42:00 Test Item Value Reference Range Interpretation Comments BUN (test code = BUN) 13 7-[address] [facility] [facility] HospitalHdkxjifSDMKIXKVT4502-18-47 22:42:00 Test Item Value Reference Range Interpretation Comments Glucose Lvl (test code = Glucose Lvl) 83 70-[address] [facility] HospitalCbzjjgqZJLKWYJLY4071-52-15 22:42:00 Test Item Value Reference Range Interpretation Comments Calcium Lvl (test code = Calcium Lvl) 9.3 8.5-10.[address] HospitalHwucumbDDOYBCTVI6991-90-55 22:42:00 Test Item Value Reference Range Interpretation Comments CO2 (test code = CO2) 31 24-[address] [facility] [facility] HospitalXumwisnRTRUGRYZD5083-84-46 22:42:00 Test Item Value Reference Range Interpretation Comments AGAP (test code = AGAP) 11.0 10.0-20.[address] [facility] HospitalRkreylzJVCILSHDK5964-27-98 22:42:00 Test Item Value Reference Range Interpretation Comments eGFR (test code = eGFR) [address] [facility] [facility] HospitalVmvfkglWHSNQYELB2843-66-61 22:42:00 Test Item Value Reference Range Interpretation Comments Sodium Lvl (test code = Sodium Lvl) 140 135-145 N [facility] NorthwestQekaifvYUJSVEJSSJ6563-32-75 22:42:00 Test Item Value Reference Range Interpretation Comments RBC (test code = RBC) 4.38 4.70-6.[address] [facility] HospitalFrybpwgYYNPNCVFW7637-11-08 22:42:00 Test Item Value Reference Range Interpretation Comments Creatinine Lvl (test code = Creatinine 0.7 0.5-1.4 N Lvl) [facility] HospitalPcdxovwTKXWVJAWV1123-10-90 22:42:00 Test Item Value Reference Range Interpretation Comments Potassium Lvl (test code = Potassium 5.0 3.5-5.1 N Lvl) [facility] HospitalSuxvtdeNJPWGYVZB2320-73-78 22:42:00 Test Item Value Reference Range Interpretation Comments Chloride Lvl (test code = Chloride Lvl) 103 95-[address] [facility] HospitalVazzgnnKTTPKDOQL2439-53-87 22:42:00 Test Item Value Reference Range Interpretation Comments Phosphorus (test code = Phosphorus) 4.7 2.5-4.[address] [facility] [facility] HospitalKpxzihwDMNVUFFPU0375-49-60 22:42:00 Test Item Value Reference Range Interpretation Comments Magnesium Lvl (test code = Magnesium 1.8 1.8-2.4 N Lvl) [facility] NorthwestMqllbrwQIIFGTXFEX3636-30-87 22:42:00 Test Item Value Reference Range Interpretation Comments Basophils # (test code 0.1 See_Comment N [Aut omated message] The = Basophils #) system which generated this result tra nsmitted reference range : <=0.2. The reference r terri was not used to int erpret this result as normal/abnormal . [facility] NorthwestKilrnzyVBMFTXZFFT2577-04-91 22:42:00 Test Item Value Reference Range Interpretation Comments Lymphocytes # (test code = Lymphocytes 2.5 1.0-5.5 N #) [facility] NorthwestHseleufVUCRONANDQ2938-96-40 22:42:00 Test Item Value Reference Range Interpretation Comments Basophils (test code = 0.7 See_Comment N [Aut omated message] The Basophils) system which ge nerated this result tra nsmitted reference range : <=1.0. The reference r terri was not used to int erpret this result as normal/abnormal . [facility] NorthwestEnurxwrCRCIXIITYP7259-50-75 22:42:00 Test Item Value Reference Range Interpretation Comments Monocytes # (test code 0.4 See_Comment N [Aut omated message] The = Monocytes #) system which generated this result tra nsmitted reference range : <=0.8. The reference r terri was not used to int erpret this result as normal/abnormal . [facility] NorthwestGptmmtxTUGLLBEOVZ0934-36-25 22:42:00 Test Item Value Reference Range Interpretation Comments Segs-Bands # (test code = Segs-Bands #) 4.9 1.5-8.1 N [facility] NorthwestOnwlgtfFAJQRGFVPG3067-15-48 22:42:00 Test Item Value Reference Range Interpretation Comments WBC (test code = WBC) 8.0 3.7-10.4 N [facility] NorthwestHeoinfhPHMIRTUECV2640-74-39 22:42:00 Test Item Value Reference Range Interpretation Comments Eosinophils (test code = 1.0 See_Comment N [A utomated message] The Eosinophils) system which ge nerated this result tra nsmitted reference range : <=4.0. The reference r terri was not used to int erpret this result as normal/abnormal . [facility] NorthwestTegdpecLKWXHGEKYS1678-54-99 22:42:00 Test Item Value Reference Range Interpretation Comments Eosinophils # (test code 0.1 See_Comment N [A utomated message] The = Eosinophils #) system ic h generated this result tra nsmitted reference range : <=0.5. The reference r terri was not used to int erpret this result as normal/abnormal . [facility] NorthwestUngjgniQIPWYKNMTW1726-64-28 22:42:00 Test Item Value Reference Range Interpretation Comments Monocytes (test code = Monocytes) 5.0 2.0-12.0 N [facility] NorthwestLbejupnYDJXFFXQMU5726-17-95 22:42:00 Test Item Value Reference Range Interpretation Comments Lymphocytes (test code = Lymphocytes) 31.3 20.0-40.0 N [facility] NorthwestJzoteumAPNTNSIUJW8124-57-77 22:42:00 Test Item Value Reference Range Interpretation Comments Segs (test code = Segs) 62.0 45.0-75.0 N [facility] NorthwestEevpxzkNNXLASKYEL0851-61-51 22:42:00 Test Item Value Reference Range Interpretation Comments MPV (test code = MPV) 9.0 7.4-10.4 N [facility] NorthwestChqmaloSPIMOEMTTI0269-99-65 22:42:00 Test Item Value Reference Range Interpretation Comments MCH (test code = MCH) 30.3 pg 27.0-31.0 N [facility] NorthwestKikboaqNZFEMUAJMZ2573-82-58 22:42:00 Test Item Value Reference Range Interpretation Comments MCHC (test code = MCHC) 33.5 32.0-36.0 N [facility] NorthwestZsxvvjfYHENWRGVTM7568-02-89 22:42:00 Test Item Value Reference Range Interpretation Comments Platelet (test code = Platelet) 204 133-450 N [facility] NorthwestRgelxesIAUUDHHFOR8613-20-04 22:42:00 Test Item Value Reference Range Interpretation Comments RDW (test code = RDW) 12.0 11.5-14.5 N [facility] NorthwestOkqdouuAGBIFBOGOI7058-68-43 22:42:00 Test Item Value Reference Range Interpretation Comments MCV (test code = MCV) 90.5 80.0-94.0 N [facility] NorthwestUqpspxrPTJZKVMQYL1822-74-99 22:42:00 Test Item Value Reference Range Interpretation Comments RBC (test code = RBC) 4.38 4.70-6.10 L [facility] NorthwestHmojzemXMUQSPQSAR1145-32-04 22:42:00 Test Item Value Reference Range Interpretation Comments WBC (test code = WBC) 8.0 3.7-10.4 N [facility] NorthwestRcmfiasZFVZRMQTIC8576-57-09 22:42:00 Test Item Value Reference Range Interpretation Comments MCV (test code = MCV) 90.5 80.0-94.0 N [facility] NorthwestDgigzgbSPHXPSQPES1471-74-69 22:42:00 Test Item Value Reference Range Interpretation Comments Hgb (test code = Hgb) 13.3 14.0-18.0 L [facility] NorthwestNynfsmvZEQHNKBJNB8594-35-03 22:42:00 Test Item Value Reference Range Interpretation Comments Hct (test code = Hct) 39.7 42.0-54.0 L [facility] NorthwestOqfdcqmDIOOPQFLPP5781-06-57 22:42:00 Test Item Value Reference Range Interpretation Comments Hgb (test code = Hgb) 13.3 14.0-18.[address] [facility] HospitalKgzbildSKCYAERFZ7151-46-02 22:42:00 Test Item Value Reference Range Interpretation Comments BUN (test code = BUN) 13 7-[address] [facility] HospitalYhdrlahTAYNBCOJU9685-07-96 22:42:00 Test Item Value Reference Range Interpretation Comments Glucose Lvl (test code = Glucose Lvl) 83 70-[address] [address] [facility] HospitalAxfyrfpPXTSFKPTK9292-91-08 22:42:00 Test Item Value Reference Range Interpretation Comments Calcium Lvl (test code = Calcium Lvl) 9.3 8.5-10.[address] HospitalKidebeeIAUAZTBGZ5373-89-05 22:42:00 Test Item Value Reference Range Interpretation Comments CO2 (test code = CO2) 31 24-[address] [facility] HospitalIkbosdlSWXXKICRP2100-66-91 22:42:00 Test Item Value Reference Range Interpretation Comments AGAP (test code = AGAP) 11.0 10.0-20.[address] HospitalZjnjjwqTGBNQHDXR1248-57-20 22:42:00 Test Item Value Reference Range Interpretation Comments eGFR (test code = eGFR) [address] [facility] [facility] HospitalEcxxfvlKNPOKKKXD2857-63-98 22:42:00 Test Item Value Reference Range Interpretation Comments Sodium Lvl (test code = Sodium Lvl) 140 135-[address] [facility] HospitalFdlxsekIRBSRGUTQ0292-48-84 22:42:00 Test Item Value Reference Range Interpretation Comments Creatinine Lvl (test code = Creatinine 0.7 0.5-1.4 N Lvl) [facility] NorthwestObuodzaLQQJAGDJWM6467-50-71 22:42:00 Test Item Value Reference Range Interpretation Comments Hct (test code = Hct) 39.7 42.0-54.[address] [facility] HospitalRmitcwlBJVBCONEA7442-58-30 22:42:00 Test Item Value Reference Range Interpretation Comments Potassium Lvl (test code = Potassium 5.0 3.5-5.1 N Lvl) [facility] HospitalHmxiqnxNVQEPEJYZ4135-09-07 22:42:00 Test Item Value Reference Range Interpretation Comments Chloride Lvl (test code = Chloride Lvl) 103 95-[address] [facility] [facility] HospitalYnnhskcBFMSTSHFU4138-49-33 22:42:00 Test Item Value Reference Range Interpretation Comments Phosphorus (test code = Phosphorus) 4.7 2.5-4.[address] [facility] HospitalJxrtfjwXBIMSYDGY0511-39-86 22:42:00 Test Item Value Reference Range Interpretation Comments Magnesium Lvl (test code = Magnesium 1.8 1.8-2.4 N Lvl) [facility] NorthwestHxycphaSBOIABZECJ7024-46-24 22:42:00 Test Item Value Reference Range Interpretation Comments Basophils # (test code 0.1 See_Comment N [Aut omated message] The = Basophils #) system which generated this result tra nsmitted reference range : <=0.2. The reference r terri was not used to int erpret this result as normal/abnormal . [facility] NorthwestYtgkpyxMDLRGVOXHI4163-76-08 22:42:00 Test Item Value Reference Range Interpretation Comments Lymphocytes # (test code = Lymphocytes 2.5 1.0-5.5 N #) [facility] NorthwestAgoipwyFIKZJCTYJK5748-88-34 22:42:00 Test Item Value Reference Range Interpretation Comments Basophils (test code = 0.7 See_Comment N [Aut omated message] The Basophils) system which ge nerated this result tra nsmitted reference range : <=1.0. The reference r terri was not used to int erpret this result as normal/abnormal . [facility] NorthwestImmduvrGLLUIOUULJ3642-56-29 22:42:00 Test Item Value Reference Range Interpretation Comments Monocytes # (test code 0.4 See_Comment N [Aut omated message] The = Monocytes #) system which generated this result tra nsmitted reference range : <=0.8. The reference r terri was not used to int erpret this result as normal/abnormal . [facility] NorthwestSzthqtqVDWQQRIRBB5689-06-66 22:42:00 Test Item Value Reference Range Interpretation Comments Segs-Bands # (test code = Segs-Bands #) 4.9 1.5-8.1 N [facility] NorthwestDdkgsvzYRNHXRUWFY9190-88-58 22:42:00 Test Item Value Reference Range Interpretation Comments Eosinophils (test code = 1.0 See_Comment N [A utomated message] The Eosinophils) system which ge nerated this result tra nsmitted reference range : <=4.0. The reference r terri was not used to int erpret this result as normal/abnormal . [facility] NorthwestRkqudnkVRCBMTKEPY0262-65-62 22:42:00 Test Item Value Reference Range Interpretation Comments Eosinophils # (test code 0.1 See_Comment N [A utomated message] The = Eosinophils #) system wh h generated this result tra nsmitted reference range : <=0.5. The reference r terri was not used to int erpret this result as normal/abnormal . [facility] NorthwestMoafiqyATMRJKJJXO4805-36-39 22:42:00 Test Item Value Reference Range Interpretation Comments Monocytes (test code = Monocytes) 5.0 2.0-12.0 N [place] 801542-11-17 22:42:00 Test Item Value Reference Range Interpretation Comments Lymphocytes (test code = Lymphocytes) 31.3 20.0-40.0 N [facility] NorthwestHsedwewMCJEOBKBEV9800-31-79 22:42:00 Test Item Value Reference Range Interpretation Comments Segs (test code = Segs) 62.0 45.0-75.0 N [facility] NorthwestNhvgyowNFJTJPDTBR7162-19-81 22:42:00 Test Item Value Reference Range Interpretation Comments MPV (test code = MPV) 9.0 7.4-10.4 N [place] [address]-11-17 22:42:00 Test Item Value Reference Range Interpretation Comments MCH (test code = MCH) 30.3 pg 27.0-31.0 N [facility] NorthwestAyqrypeRADKOCXYUV3270-21-66 22:42:00 Test Item Value Reference Range Interpretation Comments MCHC (test code = MCHC) 33.5 32.0-36.0 N [facility] NorthwestYgrnklyHQDIYCBTVO4506-51-28 22:42:00 Test Item Value Reference Range Interpretation Comments Platelet (test code = Platelet) 204 133-450 N [facility] NorthwestKggahfoURWXWBHVBZ4896-30-10 22:42:00 Test Item Value Reference Range Interpretation Comments RDW (test code = RDW) 12.0 11.5-14.5 N [facility] NorthwestOiratocZIAGUPXAAN7009-65-87 22:42:00 Test Item Value Reference Range Interpretation Comments RBC (test code = RBC) 4.38 4.70-6.10 L [facility] NorthwestCyctuoiMUYWUXXBES6910-30-48 22:42:00 Test Item Value Reference Range Interpretation Comments WBC (test code = WBC) 8.0 3.7-10.4 N [facility] NorthwestBbqnueaTSXCBMHSNN1284-97-89 22:42:00 Test Item Value Reference Range Interpretation Comments MCV (test code = MCV) 90.5 80.0-94.0 N [facility] NorthwestPszzlgbBSGQEJZRXD1630-16-96 22:42:00 Test Item Value Reference Range Interpretation Comments Hgb (test code = Hgb) 13.3 14.0-18.0 L [facility] HospitalBbzrfnpCSHMYQAQRM3652-33-37 22:42:00 Test Item Value Reference Range Interpretation Comments Hct (test code = Hct) 39.7 42.0-54.[address] [facility] HospitalQpsqcjdZIJTUQBKN5226-79-69 22:42:00 Test Item Value Reference Range Interpretation Comments BUN (test code = BUN) 13 7-[address] [facility] [facility] HospitalKomggsuSEGFXUGRV5366-08-94 22:42:00 Test Item Value Reference Range Interpretation Comments Glucose Lvl (test code = Glucose Lvl) 83 70-[address] [address] [facility] HospitalBwzlbvjQZEFZEULE2651-03-91 22:42:00 Test Item Value Reference Range Interpretation Comments Calcium Lvl (test code = Calcium Lvl) 9.3 8.5-10.[address] [facility] HospitalAuxtidtDCAWQDCCV4030-00-67 22:42:00 Test Item Value Reference Range Interpretation Comments CO2 (test code = CO2) 31 24-[address] [facility] HospitalSgbepnmWQDTYDJIZ6429-59-07 22:42:00 Test Item Value Reference Range Interpretation Comments AGAP (test code = AGAP) 11.0 10.0-20.[address] HospitalRebtrzbSHRKDYIAI2584-87-50 22:42:00 Test Item Value Reference Range Interpretation Comments eGFR (test code = eGFR) [address] HospitalLouwybsMMOXPPAZI3486-73-83 22:42:00 Test Item Value Reference Range Interpretation Comments Sodium Lvl (test code = Sodium Lvl) 140 135-[address] [facility] HospitalJkbvkluXNANUIZVL2041-69-80 22:42:00 Test Item Value Reference Range Interpretation Comments Creatinine Lvl (test code = Creatinine 0.7 0.5-1.4 N Lvl) [facility] HospitalAuljfgsUKEOHUZQI9012-70-56 22:42:00 Test Item Value Reference Range Interpretation Comments Potassium Lvl (test code = Potassium 5.0 3.5-5.1 N Lvl) [facility] HospitalFamttpwIMHCANSPZ7386-20-28 22:42:00 Test Item Value Reference Range Interpretation Comments Chloride Lvl (test code = Chloride Lvl) 103 95-[address] HospitalVldnkrhMOBCFUIQI3403-92-73 22:42:00 Test Item Value Reference Range Interpretation Comments Phosphorus (test code = Phosphorus) 4.7 2.5-4.[address] HospitalBmsdnwzADBCSDRNB8765-49-66 22:42:00 Test Item Value Reference Range Interpretation Comments Magnesium Lvl (test code = Magnesium 1.8 1.8-2.4 N Lvl) [facility] NorthwestTyqcuvvHPTRCAIKKT8226-29-02 22:42:00 Test Item Value Reference Range Interpretation Comments Basophils # (test code = Basophils #) 0.1 <=0.2 N [facility] NorthwestXaunhqnJQLPWKUNCO7305-83-57 22:42:00 Test Item Value Reference Range Interpretation Comments Lymphocytes # (test code = Lymphocytes 2.5 1.0-5.5 N #) [facility] NorthwestZsvzjwkHBYITROTOS8063-29-54 22:42:00 Test Item Value Reference Range Interpretation Comments Basophils (test code = Basophils) 0.7 <=1.0 N [address]11-17 22:42:00 Test Item Value Reference Range Interpretation Comments Monocytes # (test code = Monocytes #) 0.4 <=0.8 N [place] [address]-11-17 22:42:00 Test Item Value Reference Range Interpretation Comments Segs-Bands # (test code = Segs-Bands #) 4.9 1.5-8.1 N [facility] NorthwestDbeqhzxKFTJLTGFEI8575-59-58 22:42:00 Test Item Value Reference Range Interpretation Comments Eosinophils (test code = Eosinophils) 1.0 <=4.0 N [facility] NorthwestOqdhxivGPKYVXGRLV8830-75-83 22:42:00 Test Item Value Reference Range Interpretation Comments Eosinophils # (test code = Eosinophils 0.1 <=0.5 N #) [facility] NorthwestDddkfngONATBTMVSI3688-93-37 22:42:00 Test Item Value Reference Range Interpretation Comments Monocytes (test code = Monocytes) 5.0 2.0-12.0 N [place] [address]-11-17 22:42:00 Test Item Value Reference Range Interpretation Comments Lymphocytes (test code = Lymphocytes) 31.3 20.0-40.0 N [address]11-17 22:42:00 Test Item Value Reference Range Interpretation Comments Segs (test code = Segs) 62.0 45.0-75.0 N [facility] NorthwestCggocizRITIGPHPRG4959-93-27 22:42:00 Test Item Value Reference Range Interpretation Comments MPV (test code = MPV) 9.0 7.4-10.4 N [facility] NorthwestFzzgjepDSGBVWIOXW8192-57-86 22:42:00 Test Item Value Reference Range Interpretation Comments MCH (test code = MCH) 30.3 pg 27.0-31.0 N [facility] NorthwestZdnbkesUBLBFTCTLU2183-58-15 22:42:00 Test Item Value Reference Range Interpretation Comments MCHC (test code = MCHC) 33.5 32.0-36.0 N [facility] NorthwestUmhgssfSVQTXJWIVW9437-32-66 22:42:00 Test Item Value Reference Range Interpretation Comments Platelet (test code = Platelet) 204 133-450 N [facility] NorthwestLdfaabtZIBIHAKIVQ4564-96-22 22:42:00 Test Item Value Reference Range Interpretation Comments RDW (test code = RDW) 12.0 11.5-14.5 N [facility] NorthwestYydhqnhASLQGFKMPA8639-28-34 22:42:00 Test Item Value Reference Range Interpretation Comments RBC (test code = RBC) 4.38 4.70-6.10 L [facility] NorthwestWgpehhoTFVSYFUABZ0544-98-21 22:42:00 Test Item Value Reference Range Interpretation Comments WBC (test code = WBC) 8.0 3.7-10.4 N [facility] NorthwestCgnqnfxCRLHENEXHG6163-79-56 22:42:00 Test Item Value Reference Range Interpretation Comments MCV (test code = MCV) 90.5 80.0-94.0 N [facility] NorthwestEcnjpkxKAZGYXNQZG4909-66-10 22:42:00 Test Item Value Reference Range Interpretation Comments Hgb (test code = Hgb) 13.3 14.0-18.0 L [facility] NorthwestUtfyesfPFKARWPNUW1803-86-20 22:42:00 Test Item Value Reference Range Interpretation Comments Hct (test code = Hct) 39.7 42.0-54.[address] [facility] HospitalSlzbolpIWQXQRDBD3377-74-47 22:42:00 Test Item Value Reference Range Interpretation Comments BUN (test code = BUN) 13 7-[address] [facility] HospitalTmdmasgEYONSITBS1984-99-32 22:42:00 Test Item Value Reference Range Interpretation Comments Glucose Lvl (test code = Glucose Lvl) 83 70-[address] [facility] [facility] HospitalYbttgmnKJPSZBOLU8644-83-27 22:42:00 Test Item Value Reference Range Interpretation Comments Calcium Lvl (test code = Calcium Lvl) 9.3 8.5-10.[address] HospitalKaguzxkNVMRAWIJP6386-09-66 22:42:00 Test Item Value Reference Range Interpretation Comments CO2 (test code = CO2) 31 24-[address] [facility] [facility] HospitalMqdumooFSYYUHWBM9501-27-53 22:42:00 Test Item Value Reference Range Interpretation Comments AGAP (test code = AGAP) 11.0 10.0-20.[address] [facility] HospitalCqytatfMGFYSGLTB8379-46-87 22:42:00 Test Item Value Reference Range Interpretation Comments eGFR (test code = eGFR) [address] [facility] HospitalZftpaerPYBKMJWOP7467-63-72 22:42:00 Test Item Value Reference Range Interpretation Comments Sodium Lvl (test code = Sodium Lvl) 140 135-[address] [facility] HospitalTxnayipXFPOBXERV2595-53-33 22:42:00 Test Item Value Reference Range Interpretation Comments Creatinine Lvl (test code = Creatinine 0.7 0.5-1.4 N Lvl) [facility] HospitalHoboxarYCHXNXZQI8881-31-88 22:42:00 Test Item Value Reference Range Interpretation Comments Potassium Lvl (test code = Potassium 5.0 3.5-5.1 N Lvl) [facility] HospitalQdsvsmrUXVOHRLCZ2945-05-38 22:42:00 Test Item Value Reference Range Interpretation Comments Chloride Lvl (test code = Chloride Lvl) 103 95-[address] [facility] [facility] HospitalZrtsojpRMNNLNOJT3715-77-61 22:42:00 Test Item Value Reference Range Interpretation Comments Phosphorus (test code = Phosphorus) 4.7 2.5-4.[address] HospitalQvscmagEOOTWCXLP1440-60-81 22:42:00 Test Item Value Reference Range Interpretation Comments Magnesium Lvl (test code = Magnesium 1.8 1.8-2.4 N Lvl) [facility] NorthwestCfsommaAEFUXJCJNK1255-84-13 22:42:00 Test Item Value Reference Range Interpretation Comments Basophils # (test code 0.1 See_Comment N [Aut omated message] The = Basophils #) system which generated this result tra nsmitted reference range : <=0.2. The reference r terri was not used to int erpret this result as normal/abnormal . [facility] NorthwestSygoiqaEMOLFTCCHU9576-08-30 22:42:00 Test Item Value Reference Range Interpretation Comments Lymphocytes # (test code = Lymphocytes 2.5 1.0-5.5 N #) [facility] NorthwestUbvlflaMULQUIVLUR6701-61-69 22:42:00 Test Item Value Reference Range Interpretation Comments Basophils (test code = 0.7 See_Comment N [Aut omated message] The Basophils) system which ge nerated this result tra nsmitted reference range : <=1.0. The reference r terri was not used to int erpret this result as normal/abnormal . [facility] NorthwestYnhqfyzTHSNFBFSMW8715-05-16 22:42:00 Test Item Value Reference Range Interpretation Comments Monocytes # (test code 0.4 See_Comment N [Aut omated message] The = Monocytes #) system which generated this result tra nsmitted reference range : <=0.8. The reference r terri was not used to int erpret this result as normal/abnormal . [facility] NorthwestJgbldagKRSQYRLXWN6105-21-81 22:42:00 Test Item Value Reference Range Interpretation Comments Segs-Bands # (test code = Segs-Bands #) 4.9 1.5-8.1 N [facility] NorthwestPpxcdgcLKNJEWVJQH9826-21-42 22:42:00 Test Item Value Reference Range Interpretation Comments Eosinophils (test code = 1.0 See_Comment N [A utomated message] The Eosinophils) system which ge nerated this result tra nsmitted reference range : <=4.0. The reference r terri was not used to int erpret this result as normal/abnormal . [facility] NorthwestHdorldoOVCDGMNJVY1790-50-51 22:42:00 Test Item Value Reference Range Interpretation Comments Eosinophils # (test code 0.1 See_Comment N [A utomated message] The = Eosinophils #) system whic h generated this result tra nsmitted reference range : <=0.5. The reference r terri was not used to int erpret this result as normal/abnormal . [facility] NorthwestLaiulseZBKLXXDTOR1227-48-80 22:42:00 Test Item Value Reference Range Interpretation Comments Monocytes (test code = Monocytes) 5.0 2.0-12.0 N [facility] NorthwestJswrajnXVTNKQVXYF9198-98-46 22:42:00 Test Item Value Reference Range Interpretation Comments Lymphocytes (test code = Lymphocytes) 31.3 20.0-40.0 N [facility] NorthwestAtzabtuSDHRJMIMSD3055-42-76 22:42:00 Test Item Value Reference Range Interpretation Comments Segs (test code = Segs) 62.0 45.0-75.0 N [facility] NorthwestJrngxltYWQFMHPCTK1179-63-00 22:42:00 Test Item Value Reference Range Interpretation Comments MPV (test code = MPV) 9.0 7.4-10.4 N [facility] NorthwestHqdapiuJBUXLNEYMH9249-64-90 22:42:00 Test Item Value Reference Range Interpretation Comments MCH (test code = MCH) 30.3 pg 27.0-31.0 N [facility] NorthwestGhhmsppWJSIBXWZVJ1965-08-22 22:42:00 Test Item Value Reference Range Interpretation Comments MCHC (test code = MCHC) 33.5 32.0-36.0 N [facility] NorthwestYpqibevLBXFXFTOYX7966-37-86 22:42:00 Test Item Value Reference Range Interpretation Comments Platelet (test code = Platelet) 204 133-450 N [facility] NorthwestTwobfwpSUFIUHOSUG5937-13-97 22:42:00 Test Item Value Reference Range Interpretation Comments RDW (test code = RDW) 12.0 11.5-14.5 N [facility] NorthwestGuiltiwJEMNPPECZY3421-80-32 22:42:00 Test Item Value Reference Range Interpretation Comments RBC (test code = RBC) 4.38 4.70-6.10 L [facility] NorthwestGtdmfahMPBTAPXGUI0580-34-39 22:42:00 Test Item Value Reference Range Interpretation Comments WBC (test code = WBC) 8.0 3.7-10.4 N [facility] NorthwestFttrmgzKZNCYCFZAE3473-51-64 22:42:00 Test Item Value Reference Range Interpretation Comments MCV (test code = MCV) 90.5 80.0-94.0 N [facility] NorthwestFnopchnFRTFPXAXLQ9026-19-91 22:42:00 Test Item Value Reference Range Interpretation Comments Hgb (test code = Hgb) 13.3 14.0-18.0 L [facility] NorthwestFikvnhaVLORQHFPFV6829-49-78 22:42:00 Test Item Value Reference Range Interpretation Comments Hct (test code = Hct) 39.7 42.0-54.[address] [facility] HospitalUrhujwlTREYIXPHZ2199-76-25 22:42:00 Test Item Value Reference Range Interpretation Comments BUN (test code = BUN) 13 7-[address] [facility] HospitalPvrbmhyQJEZLBZQW1343-15-74 22:42:00 Test Item Value Reference Range Interpretation Comments Glucose Lvl (test code = Glucose Lvl) 83 70-[address] HospitalUhcybofLPTVDWCCM0966-41-80 22:42:00 Test Item Value Reference Range Interpretation Comments Calcium Lvl (test code = Calcium Lvl) 9.3 8.5-10.[address] HospitalLotfbdzVOBUPASFI4171-73-35 22:42:00 Test Item Value Reference Range Interpretation Comments CO2 (test code = CO2) 31 24-[address] [facility] HospitalXtiydtvLWTWOXIDK2042-86-81 22:42:00 Test Item Value Reference Range Interpretation Comments AGAP (test code = AGAP) 11.0 10.0-20.[address] [facility] HospitalWpmxskrJKWSNIGOF0015-90-85 22:42:00 Test Item Value Reference Range Interpretation Comments eGFR (test code = eGFR) [address] [facility] HospitalAfbrnduJELXDZEJL0673-47-02 22:42:00 Test Item Value Reference Range Interpretation Comments Sodium Lvl (test code = Sodium Lvl) 140 135-[address] [facility] HospitalYkicyocTVGLZTCXY8088-10-13 22:42:00 Test Item Value Reference Range Interpretation Comments Creatinine Lvl (test code = Creatinine 0.7 0.5-1.4 N Lvl) [facility] HospitalRlyvzziWNYBDJOQE3911-41-29 22:42:00 Test Item Value Reference Range Interpretation Comments Potassium Lvl (test code = Potassium 5.0 3.5-5.1 N Lvl) [facility] HospitalVpbhcxvHIWVZIPUV3400-67-63 22:42:00 Test Item Value Reference Range Interpretation Comments Chloride Lvl (test code = Chloride Lvl) 103 95-[address] [facility] HospitalApkbohlUHHZFFMPZ0430-14-93 22:42:00 Test Item Value Reference Range Interpretation Comments BUN (test code = BUN) 13 7-[address] [facility] HospitalTvwkoejITLCQPDCT2051-67-31 22:42:00 Test Item Value Reference Range Interpretation Comments Glucose Lvl (test code = Glucose Lvl) 83 70-[address] [facility] HospitalSqncgycCPAQFGCSL2194-82-35 22:42:00 Test Item Value Reference Range Interpretation Comments Calcium Lvl (test code = Calcium Lvl) 9.3 8.5-10.[address] HospitalRckcvggFWRSRCIHG6391-47-47 22:42:00 Test Item Value Reference Range Interpretation Comments CO2 (test code = CO2) 31 24-[address] [facility] HospitalVpxrktbOVSCHRRAX7559-22-17 22:42:00 Test Item Value Reference Range Interpretation Comments AGAP (test code = AGAP) 11.0 10.0-20.[address] [facility] HospitalAhfbcktTTHDKMPFR5540-44-44 22:42:00 Test Item Value Reference Range Interpretation Comments eGFR (test code = eGFR) [address] [facility] HospitalKzvrgmpAXVIUBKYG5018-12-23 22:42:00 Test Item Value Reference Range Interpretation Comments Sodium Lvl (test code = Sodium Lvl) 140 135-[address] [address] [facility] HospitalSezhganRYVRMYDOE5068-01-20 22:42:00 Test Item Value Reference Range Interpretation Comments Creatinine Lvl (test code = Creatinine 0.7 0.5-1.4 N Lvl) [facility] HospitalSqmdgscRFOSDYVRF9843-36-50 22:42:00 Test Item Value Reference Range Interpretation Comments Potassium Lvl (test code = Potassium 5.0 3.5-5.1 N Lvl) [facility] HospitalPejpzlfKPKLVKWFQ9009-01-84 22:42:00 Test Item Value Reference Range Interpretation Comments Chloride Lvl (test code = Chloride Lvl) 103 95-[address] HospitalGgfsfkuDCCWPGJPY2193-00-96 22:42:00 Test Item Value Reference Range Interpretation Comments Phosphorus (test code = Phosphorus) 4.7 2.5-4.[address] HospitalEszbrgxRNIXSRFEH1511-87-16 22:42:00 Test Item Value Reference Range Interpretation Comments Magnesium Lvl (test code = Magnesium 1.8 1.8-2.4 N Lvl) [facility] NorthwestPquoxfeKMVHVVSPRW1058-83-83 22:42:00 Test Item Value Reference Range Interpretation Comments Basophils # (test code = Basophils #) 0.1 <=0.2 N [facility] NorthwestXvggghkQOJPKWZFUU5828-35-71 22:42:00 Test Item Value Reference Range Interpretation Comments Lymphocytes # (test code = Lymphocytes 2.5 1.0-5.5 N #) [facility] NorthwestJfoqnyiLBOKFJFINP6744-26-63 22:42:00 Test Item Value Reference Range Interpretation Comments Basophils (test code = Basophils) 0.7 <=1.0 N [facility] NorthwestBbhrxopYYJEDHEZPY0120-88-21 22:42:00 Test Item Value Reference Range Interpretation Comments Monocytes # (test code = Monocytes #) 0.4 <=0.8 N [facility] NorthwestGdmfgbzSMIXQCFKBT0580-97-17 22:42:00 Test Item Value Reference Range Interpretation Comments Segs-Bands # (test code = Segs-Bands #) 4.9 1.5-8.1 N [facility] NorthwestUrpwzsbUILKKEZXLK7810-34-93 22:42:00 Test Item Value Reference Range Interpretation Comments Eosinophils (test code = Eosinophils) 1.0 <=4.0 N [facility] NorthwestBxufibaADXAWOKLZO2815-41-21 22:42:00 Test Item Value Reference Range Interpretation Comments Eosinophils # (test code = Eosinophils 0.1 <=0.5 N #) [facility] NorthwestLzkmzlmCBEPHUQUCU5128-71-31 22:42:00 Test Item Value Reference Range Interpretation Comments Monocytes (test code = Monocytes) 5.0 2.0-12.0 N [facility] NorthwestJenlrhqWRRSYJNVJB9192-07-22 22:42:00 Test Item Value Reference Range Interpretation Comments Lymphocytes (test code = Lymphocytes) 31.3 20.0-40.0 N [facility] NorthwestJbzllpbEDLHBMILQX8806-76-12 22:42:00 Test Item Value Reference Range Interpretation Comments Segs (test code = Segs) 62.0 45.0-75.0 N [facility] NorthwestGzxkqnkBFCASYOKUD1727-19-35 22:42:00 Test Item Value Reference Range Interpretation Comments MPV (test code = MPV) 9.0 7.4-10.4 N [facility] NorthwestJknpxdzKEUQSRNCGG9027-42-33 22:42:00 Test Item Value Reference Range Interpretation Comments MCH (test code = MCH) 30.3 pg 27.0-31.0 N [facility] NorthwestLnndvvtPXWPJOCZMA4098-43-55 22:42:00 Test Item Value Reference Range Interpretation Comments MCHC (test code = MCHC) 33.5 32.0-36.0 N [facility] NorthwestFseazunUDUKTGSPAM8499-51-43 22:42:00 Test Item Value Reference Range Interpretation Comments Platelet (test code = Platelet) 204 133-450 N [facility] NorthwestPbrzpvlSQMGIPYPPQ5221-54-49 22:42:00 Test Item Value Reference Range Interpretation Comments RDW (test code = RDW) 12.0 11.5-14.5 N [facility] NorthwestDdlasqcEHZJITMFDW1666-64-29 22:42:00 Test Item Value Reference Range Interpretation Comments RBC (test code = RBC) 4.38 4.70-6.10 L [facility] NorthwestAhzbfvlJBRZLIQSOJ8832-42-73 22:42:00 Test Item Value Reference Range Interpretation Comments WBC (test code = WBC) 8.0 3.7-10.4 N [facility] NorthwestGotgsbrDQHXQRHOAM8219-12-38 22:42:00 Test Item Value Reference Range Interpretation Comments MCV (test code = MCV) 90.5 80.0-94.0 N [facility] NorthwestQjcrejdSWBRGQRZHK0615-16-54 22:42:00 Test Item Value Reference Range Interpretation Comments Hgb (test code = Hgb) 13.3 14.0-18.0 L [facility] NorthwestFjzppaqBXKIDWFRCA2843-36-12 22:42:00 Test Item Value Reference Range Interpretation Comments Hct (test code = Hct) 39.7 42.0-54.[address] [facility] HospitalHgzyqppWDZSEXULZ0367-41-44 22:42:00 Test Item Value Reference Range Interpretation Comments BUN (test code = BUN) 13 7-[address] [facility] HospitalInuermlXQHOPWXZP4413-43-92 22:42:00 Test Item Value Reference Range Interpretation Comments Phosphorus (test code = Phosphorus) 4.7 2.5-4.[address] [facility] HospitalGzbrfcpOZEZCJQMD2925-80-25 22:42:00 Test Item Value Reference Range Interpretation Comments Magnesium Lvl (test code = Magnesium 1.8 1.8-2.4 N Lvl) [facility] NorthwestMlwkfpqUYMEQEULNA2431-21-04 22:42:00 Test Item Value Reference Range Interpretation Comments Basophils # (test code 0.1 See_Comment N [Aut omated message] The = Basophils #) system which generated this result tra nsmitted reference range : <=0.2. The reference r terri was not used to int erpret this result as normal/abnormal . [facility] NorthwestLdlvewqLVPFVFBPYB0035-40-07 22:42:00 Test Item Value Reference Range Interpretation Comments Lymphocytes # (test code = Lymphocytes 2.5 1.0-5.5 N #) [facility] NorthwestAlztsfuJNVRBLXBBZ1626-51-77 22:42:00 Test Item Value Reference Range Interpretation Comments Basophils (test code = 0.7 See_Comment N [Aut omated message] The Basophils) system which ge nerated this result tra nsmitted reference range : <=1.0. The reference r terri was not used to int erpret this result as normal/abnormal . [facility] NorthwestMygznxmHXOHENUSDK0461-34-69 22:42:00 Test Item Value Reference Range Interpretation Comments Monocytes # (test code 0.4 See_Comment N [Aut omated message] The = Monocytes #) system which generated this result tra nsmitted reference range : <=0.8. The reference r terri was not used to int erpret this result as normal/abnormal . [facility] NorthwestXekilauTTBHXPSTAV7881-68-60 22:42:00 Test Item Value Reference Range Interpretation Comments Segs-Bands # (test code = Segs-Bands #) 4.9 1.5-8.1 N [facility] NorthwestXzrbhbyEELAFNCREV9667-47-74 22:42:00 Test Item Value Reference Range Interpretation Comments Eosinophils (test code = 1.0 See_Comment N [A utomated message] The Eosinophils) system which ge nerated this result tra nsmitted reference range : <=4.0. The reference r terri was not used to int erpret this result as normal/abnormal . [facility] NorthwestNxzlxslWQIZFLOJKO5779-87-62 22:42:00 Test Item Value Reference Range Interpretation Comments Eosinophils # (test code 0.1 See_Comment N [A utomated message] The = Eosinophils #) system whic h generated this result tra nsmitted reference range : <=0.5. The reference r terri was not used to int erpret this result as normal/abnormal . [facility] NorthwestAxuxhajEORVAURJDB8108-54-03 22:42:00 Test Item Value Reference Range Interpretation Comments Monocytes (test code = Monocytes) 5.0 2.0-12.[address] HospitalAsvihhuRGBWBNSRI2250-74-44 22:42:00 Test Item Value Reference Range Interpretation Comments Glucose Lvl (test code = Glucose Lvl) 83 70-99 N [facility] NorthwestPtgtkfmUBXWCQMMOJ4454-62-31 22:42:00 Test Item Value Reference Range Interpretation Comments Lymphocytes (test code = Lymphocytes) 31.3 20.0-40.0 N [facility] NorthwestGnklcwiBCRPNNBLWD3225-84-57 22:42:00 Test Item Value Reference Range Interpretation Comments Segs (test code = Segs) 62.0 45.0-75.0 N [facility] NorthwestOzmksvyWPAUJQJFYI2425-31-81 22:42:00 Test Item Value Reference Range Interpretation Comments MPV (test code = MPV) 9.0 7.4-10.4 N [facility] NorthwestEsjrmmrLXFTXCPCWU1260-38-97 22:42:00 Test Item Value Reference Range Interpretation Comments MCH (test code = MCH) 30.3 pg 27.0-31.0 N [facility] NorthwestCbwdoqzFFNBXOLJOJ2974-68-04 22:42:00 Test Item Value Reference Range Interpretation Comments MCHC (test code = MCHC) 33.5 32.0-36.0 N [facility] NorthwestEhhdkdhTDPWAVFXKL8428-33-63 22:42:00 Test Item Value Reference Range Interpretation Comments Platelet (test code = Platelet) 204 133-450 N [facility] NorthwestHaegqjpBDSBOMLTOZ6771-70-62 22:42:00 Test Item Value Reference Range Interpretation Comments RDW (test code = RDW) 12.0 11.5-14.5 N [facility] NorthwestBstwnjvJGNVQSGRSY9249-71-63 22:42:00 Test Item Value Reference Range Interpretation Comments RBC (test code = RBC) 4.38 4.70-6.10 L [facility] NorthwestFukwivpCJSAYPBZGI7358-73-05 22:42:00 Test Item Value Reference Range Interpretation Comments WBC (test code = WBC) 8.0 3.7-10.4 N [facility] NorthwestSjvwlqvXJODGJFNQJ8553-33-73 22:42:00 Test Item Value Reference Range Interpretation Comments MCV (test code = MCV) 90.5 80.0-94.[address] [facility] HospitalCrekodfXOODQPFZP8446-87-81 22:42:00 Test Item Value Reference Range Interpretation Comments Calcium Lvl (test code = Calcium Lvl) 9.3 8.5-10.5 N [facility] NorthwestSbudnfbWLREDWPBNZ9911-86-98 22:42:00 Test Item Value Reference Range Interpretation Comments Hgb (test code = Hgb) 13.3 14.0-18.0 L [facility] NorthwestXrgooprTINTNCXNUR1047-96-26 22:42:00 Test Item Value Reference Range Interpretation Comments Hct (test code = Hct) 39.7 42.0-54.[address] [facility] HospitalHpflumrHTBNKDHQK5659-62-80 22:42:00 Test Item Value Reference Range Interpretation Comments BUN (test code = BUN) 13 7-[address] [facility] HospitalSqdoxqgLDLJHACAS4531-38-17 22:42:00 Test Item Value Reference Range Interpretation Comments CO2 (test code = CO2) 31 24-[address] [facility] HospitalExwagmpUBHYQWTTA6045-87-83 22:42:00 Test Item Value Reference Range Interpretation Comments Glucose Lvl (test code = Glucose Lvl) 83 70-[address] [facility] HospitalQuqsekiXFHONDLFB7097-11-09 22:42:00 Test Item Value Reference Range Interpretation Comments Calcium Lvl (test code = Calcium Lvl) 9.3 8.5-10.[address] HospitalWfhshipMWEUJRWKS5707-07-44 22:42:00 Test Item Value Reference Range Interpretation Comments CO2 (test code = CO2) 31 24-[address] [facility] HospitalSsyecutXPPLPRGHU4449-43-26 22:42:00 Test Item Value Reference Range Interpretation Comments AGAP (test code = AGAP) 11.0 10.0-20.[address] HospitalUwnhgrgXZDBVQCLT7752-99-94 22:42:00 Test Item Value Reference Range Interpretation Comments eGFR (test code = eGFR) [address] HospitalNsuummkXWVIGGEHT8883-48-22 22:42:00 Test Item Value Reference Range Interpretation Comments Sodium Lvl (test code = Sodium Lvl) 140 135-[address] HospitalQubkosgFDIMRWSIK5621-16-98 22:42:00 Test Item Value Reference Range Interpretation Comments Creatinine Lvl (test code = Creatinine 0.7 0.5-1.4 N Lvl) [facility] HospitalXvaprgtYYJIVAQEZ5967-19-92 22:42:00 Test Item Value Reference Range Interpretation Comments Potassium Lvl (test code = Potassium 5.0 3.5-5.1 N Lvl) [facility] HospitalHnpglzmTERJTDTTQ1857-23-34 22:42:00 Test Item Value Reference Range Interpretation Comments Chloride Lvl (test code = Chloride Lvl) 103 95-[address] HospitalOtdoqdyTPDVYPMEO7241-72-96 22:42:00 Test Item Value Reference Range Interpretation Comments Phosphorus (test code = Phosphorus) 4.7 2.5-4.5 H [facility] GLUCOSE SMSLNZU0565-57-45 21:59:00 Test Item Value Reference Range Interpretation Comments Gluc POC [facility] (test code = Gluc POC 86 70-99 N [facility]) [facility] GLUCOSE GJZDXRK3457-59-75 21:59:00 Test Item Value Reference Range Interpretation Comments Gluc POC [facility] (test code = Gluc POC 86 70-99 N [facility]) [facility] GLUCOSE [id number] 21:59:00 Test Item Value Reference Range Interpretation Comments Gluc POC [facility] (test code = Gluc POC 86 70-99 N [facility]) [facility] GLUCOSE DVMJKEZ3540-42-64 21:59:00 Test Item Value Reference Range Interpretation Comments Gluc POC [facility] (test code = Gluc POC 86 70-99 N [facility]) [facility] GLUCOSE [id number] 21:59:00 Test Item Value Reference Range Interpretation Comments Gluc POC [facility] (test code = Gluc POC 86 70-99 N [facility]) [facility] GLUCOSE [id number] 21:59:00 Test Item Value Reference Range Interpretation Comments Gluc POC [facility] (test code = Gluc POC 86 70-99 N [facility]) [facility] GLUCOSE [id number] 21:59:00 Test Item Value Reference Range Interpretation Comments Gluc POC [facility] (test code = Gluc POC 86 70-99 N [facility]) [facility] GLUCOSE [id number] 21:59:00 Test Item Value Reference Range Interpretation Comments Gluc POC [facility] (test code = Gluc POC 86 70-99 N [facility]) [facility] GLUCOSE [id number] 21:59:00 Test Item Value Reference Range Interpretation Comments Gluc POC [facility] (test code = Gluc POC 86 70-99 N [facility]) [facility] GLUCOSE [id number] 21:59:00 Test Item Value Reference Range Interpretation Comments Gluc POC Lif[facility]n (test code = Gluc POC 86 70-99 N [facility]n) [facility] GLUCOSE [id number] 21:59:00 Test Item Value Reference Range Interpretation Comments Gluc POC [facility] (test code = Gluc POC 86 70-99 N [facility]) [facility] GLUCOSE [id number] 21:59:00 Test Item Value Reference Range Interpretation Comments Gluc POC [facility] (test code = Gluc POC 86 70-99 N [facility]n) [facility] GLUCOSE [id number] 21:59:00 Test Item Value Reference Range Interpretation Comments Gluc POC Lif[facility] (test code = Gluc POC 86 70-99 N Lifscn) [facility]
[2023-08-28] MEDS ORDERED: LEVETIRACETAM 500 MG/5 ML VIAL IV ONE (18:23)
[2023-08-28] MEDS ORDERED: NA CHLORIDE 0.9% 100 ML ONE (18:23)
[2023-08-28 19:21] LABS: Absolute Lymphocytes (CBC) 3.1 K/uL (0.7-4.9); Hematocrit 41.5 % (39.6-49.0); Lymphocytes % 44.7 % (15.3-44.8); MCV 84.4 fL (80-100); MPV 8.1 fL (7.6-11.3); Platelets 256 thou/uL (152-406); RBC Red Blood Cell Count 4.91 M/uL (4.33-5.43)
[2023-08-28 19:35] LABS: Potassium 3.4 mEq/L (3.5-5.1)
--- NOTE | 2023-08-28 20:56 | ER ---
Nurse's Notes [facility] Name: Shan Faye Age: 38 yrs Sex: Male : 1985 Arrival Date: 08/28/2023 Time: 17:58 Bed 15 Private MD: Diagnosis: Epileptic seizures related to external causes, not intractable, without status epilepticus Presentation: 08/28 18:13 Chief complaint: EMS states: they were called to [facility] for patient having seizure. 10 EMS reports that patient had 7-8 seizures before EMS arrival. 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 Pt having seizure while EMS in room. Coronavirus screen: Vaccine status: Patient reports being unvaccinated. Client denies travel out of the [place] in the last 14 days. Ebola Screen: Patient denies travel to an Ebola-affected area in the 21 days before illness onset. No symptoms or risks identified at this time. Initial Sepsis Screen: Does the patient meet any 2 criteria? No. Patient's initial sepsis screen is negative. Does the patient have a suspected source of infection? No. Patient's initial sepsis screen is negative. Risk Assessment: Do you want to hurt yourself or someone else? Patient reports no desire to harm self or others. Onset of symptoms was August 28, 2023. 18:13 Method Of Arrival: EMS: [facility] 10 18:13 Acuity: PAULINE 3 cm10 18:13 Care prior to arrival: Medication(s) given: Ativan 2mg IV initiated. 20 GA, in the cm10 right hand. Triage Assessment: 18:57 General: Appears in no apparent distress. comfortable, Behavior is calm, cooperative. cm10 Pain: Denies pain. Neuro: No deficits noted. Level of Consciousness is awake, alert, obeys commands, Oriented to person, place, time, situation. Respiratory: No deficits noted. Airway is patent Respiratory effort is even, unlabored, Respiratory pattern is regular, symmetrical. Historical: - Allergies: 18:13 No Known Allergies; cm10 - PMHx: 18:13 brain disorder; CVA; Seizure; cm10 - PSHx: 18:13 Cholecystectomy; cm10 - Immunization history:: Adult Immunizations. - Social history:: Smoking status: Patient denies any tobacco usage or history of. Screenin:[facility] Fall Risk Assessment (Adult) History of falling in the last 3 months, cm10 including since admission Yes- physiologic fall (2 pts) Confusion or Disorientation No (0 pts) Intoxicated or Sedated No (0 pts) Impaired Gait No (0 pts) Mobility Assist Device Used No (0 pt) Altered Elimination No (0 pt) Score/Fall Risk Level 0 - 2 = Low Risk Oriented to surroundings, Maintained a safe environment, Hourly rounding (assess needs \T\ fall precautionary measures) done. Abuse screen: Denies threats or abuse. Denies injuries from another. Nutritional screening: No deficits noted. Tuberculosis screening: No symptoms or risk factors identified. Vital Signs: 18:13 BP 141 / 101; Pulse 99; Resp 18; Temp 98; Pulse Ox 94% on R/A; cm10 20:14 BP 112 / 88; Pulse 87; Resp 20; Pulse Ox 94% ; bp ED Course: 18:04 Patient arrived in ED. kb 18:05 Britt Ambrocio FNP-C is PHCP. kb 18:05 Ariana Allen MD is Attending Physician. kb 18:15 Triage completed. cm10 18:15 Arm band placed on Patient placed in an exam room, on cardiac technologist, on pulse cm10 oximetry. 18:59 Patient has correct armband on for positive identification. Adult w/ patient. Provided cm10 Education on: ER process and procedures. . 19:20 Home Lopez, RN is Primary Nurse. bp 21:23 No provider procedures requiring assistance completed. IV discontinued, intact, bp bleeding controlled, No redness/swelling at site. Pressure dressing applied. Administered Medications: 18:12 Drug: Keppra IV 1000 mg IV at calculated rate once Route: IV; Rate: calculated rate; cm10 Site: right hand; 18:56 Follow up: Response: No adverse reaction; IV Status: Completed infusion; IV Intake: cm10 100ml Medication: 18:59 VIS not applicable for this client. cm10 Intake: 18:56 IV: 100ml; Total: 100ml. cm10 Outcome: 20:55 Discharge ordered by . kb 21:23 Discharged to home via wheelchair, with family, bp 21:23 Condition: stable 21:23 Discharge instructions given to patient, family, Instructed on discharge instructions, follow up and referral plans. Demonstrated understanding of instructions, follow-up care, 21:24 Patient left the ED. bp Signatures: Britt Ambrocio, Home Armando, RN RN bp Kelsy Mckinley RN RN cm10
--- NOTE | 2023-08-28 20:56 | EDPHYS ---
Physician Documentation [facility] Name: Shan Faye Age: 38 yrs Sex: Male : 1985 Arrival Date: 08/28/2023 Time: 17:58 Bed 15 Private MD: ED Physician Ariana Allen HPI: 08/28 22:26 This 38 yrs old Male presents to ER via EMS with complaints of Seizure. kb 22:26 Patient is a 38-year-old male with a history of seizures who presents for seizure kb activity that occurred at work just prior to arrival. Coworkers report patient had 7 or 8 seizures lasting 10 to 15 seconds each. EMS reports patient had a seizure in route lasting 10 to 15 seconds and was given 2 mg Ativan IV. Patient reports he has not had his Keppra in a couple of days.. Historical: - Allergies: 18:13 No Known Allergies; cm10 - PMHx: 18:13 brain disorder; CVA; Seizure; cm10 - PSHx: 18:13 Cholecystectomy; cm10 - Immunization history:: Adult Immunizations. - Social history:: Smoking status: Patient denies any tobacco usage or history of. ROS: 22:26 Constitutional: Negative for fever, chills, and weight loss, kb 22:26 Neuro: Positive for seizure activity, 22:26 All other systems are negative, Exam: 22:26 Constitutional: This is a well developed, well nourished patient who is awake, alert, kb and in no acute distress. Head/Face: Normocephalic, atraumatic. ENT: Moist Mucous membranes Cardiovascular: Regular rate Respiratory: Respirations even and unlabored. No increased work of breathing. Talking in full sentences Abdomen/GI: Soft, non-tender. No distention Skin: Warm, dry with normal turgor. Normal color. MS/ Extremity: Pulses equal, no cyanosis. Neurovascular intact. Full, normal range of motion. Neuro: Awake and alert, GCS 15, oriented to person, place, time, and situation. Vital Signs: 18:13 BP 141 / 101; Pulse 99; Resp 18; Temp 98; Pulse Ox 94% on R/A; cm10 20:14 BP 112 / 88; Pulse 87; Resp 20; Pulse Ox 94% ; bp MDM: 18:04 Patient medically screened. kb 22:27 Differential diagnosis: seizure. Data reviewed: vital signs, nurses notes. Test kb considered but Not performed: CT: CT head considered but patient has a history of seizures and this was similar in nature to previous episodes.. Historians other than the Patient: EMS: [facility]. Counseling: I had a detailed discussion with the patient and/or guardian regarding the historical points, exam findings, and any diagnostic results supporting the discharge/admit diagnosis, lab results, the need for outpatient follow up, a neurologist, to return to the emergency department if symptoms worsen or persist or if there are any questions or concerns that arise at home. ED course: Patient has not had a seizure since initial arrival. Has been resting on stretcher comfortably. Mother has been at bedside. Discussed diagnostic results with mother and educated to follow-up with neurologist, as well as following medication regimen strictly. Verbal understanding received. 08/28 18:05 Order name: CBC with Diff; Complete Time: 19:27 kb 08/28 18:05 Order name: Basic Metabolic Panel; Complete Time: 19:48 kb 08/28 18:05 Order name: IV Start; Complete Time: 18:12 kb Administered Medications: 18:12 Drug: Keppra IV 1000 mg IV at calculated rate once Route: IV; Rate: calculated rate; cm10 Site: right hand; 18:56 Follow up: Response: No adverse reaction; IV Status: Completed infusion; IV Intake: cm10 100ml Disposition Summary: 08/28/23 20:55 Discharge Ordered Notes: Location: Home kb Condition: Stable kb Diagnosis - Epileptic seizures related to external causes, not intractable, without status kb epilepticus Followup: kb - With: Emergency Department - When: As needed - Reason: Worsening of condition Followup: kb - With: Private Physician - When: 2 - 3 days - Reason: Recheck today's complaints, Continuance of care, Re-evaluation by your physician Discharge Instructions: - Discharge Summary Sheet kb - Seizure, Adult, [id number] kb Forms: - Medication Reconciliation Form kb - Thank You Letter kb - Antibiotic Education kb - Prescription Opioid Use kb - Patient Portal Instructions kb - Leadership Thank You Letter kb - Work release form ds4 Signatures: Dispatcher [employer] Britt Davenport, CLINICAL LAB TECHNOLOGIST-C NATI-Kelsy Samuel, RN RN cm10
[2023-08-28 21:43] VITALS: TEMP 98; O2SAT 94
[2023-08-28 21:45] VITALS: BP 112/88
== END 2023-08-28 21:24 | disposition home or self-care (01) ==
LOC: ER 17:58
DX: G40.509 Epileptic seizures related to external causes, not intractable, without status epilepticus (principal)
CPT/HCPCS: 96365; 85025; 80048; 36415; 99284; J1953

== ENCOUNTER 2024-05-28 08:40 | Emergency (ER) | payer OTHER ==
--- NOTE | 2024-05-28 09:36 | ER ---
Nurse's Notes [facility] Name: Shan Faye Age: 38 yrs Sex: Male : 1985 Arrival Date: 05/28/2024 Time: 08:40 Bed IW6 Private MD: Diagnosis: Foreign body in right ear, initial encounter Presentation: 05/28 09:15 Chief complaint: Earpiece from headphones stuck in right ear canal. Coronavirus screen: hb At this time, the client does not indicate any symptoms associated with coronavirus-19. Ebola Screen: No symptoms or risks identified at this time. Initial Sepsis Screen: Does the patient meet any 2 criteria? No. Patient's initial sepsis screen is negative. Does the patient have a suspected source of infection? No. Patient's initial sepsis screen is negative. Risk Assessment: Do you want to hurt yourself or someone else? Patient reports no desire to harm self or others. Onset of symptoms was May 28, 2024. 09:15 Method Of Arrival: Ambulatory hb 09:15 Acuity: PAULINE 4 hb Triage Assessment: 09:17 General: Appears in no apparent distress. Behavior is calm, cooperative. Pain: Denies hb pain. EENT: white FB in right ear canal. Neuro: Level of Consciousness is awake, alert, obeys commands, Oriented to person, place, time, situation. Cardiovascular: Patient's skin is warm and dry. Respiratory: Respiratory effort is even, unlabored, Respiratory pattern is regular, symmetrical. Historical: - Allergies: 09:17 No Known Allergies; hb - PMHx: 09:17 brain disorder; CVA; Seizure; hb - PSHx: 09:17 Cholecystectomy; hb - Immunization history:: Adult Immunizations up to date. - Infectious Disease History:: Denies. - Social history:: Smoking status: Patient denies any tobacco usage or history of. Screenin:18 [facility] ED Fall Risk Assessment (Adult) History of falling in the last 3 months, hb including since admission No falls in past 3 months (0 pts) Confusion or Disorientation No (0 pts) Intoxicated or Sedated No (0 pts) Impaired Gait No (0 pts) Mobility Assist Device Used No (0 pt) Altered Elimination No (0 pt) Score/Fall Risk Level 0 - 2 = Low Risk Oriented to surroundings, Maintained a safe environment, Educated pt \T\ family on fall prevention, incl call for assistance when getting out of bed. Abuse screen: Denies threats or abuse. Denies injuries from another. Nutritional screening: No deficits noted. Tuberculosis screening: No symptoms or risk factors identified. Assessment: 09:18 General: See triage assessment . hb 09:18 Reassessment: Isaiah KELLEY in triage for FB removal. hb Vital Signs: 09:15 BP 154 / 94; Pulse 60; Resp 16; Temp 97.4; Pulse Ox 97% on R/A; Weight 86.18 kg; Height hb 5 ft. 5 in. ; Pain 0/10; 09:15 Body Mass Index 31.62 (86.18 kg, 165.1 cm) hb 09:15 Pain Scale: Adult hb ED Course: 08:42 Patient arrived in ED. ra3 09:10 Isaiah Hannah PA is PHCP. cp 09:10 Dai Barker MD is Attending Physician. cp 09:16 Triage completed. hb 09:17 Arm band placed on. hb Administered Medications: No medications were administered Medication: 09:18 VIS not applicable for this client. hb Outcome: 09:36 Discharge ordered by . cp 09:49 Patient left the ED. hb Signatures: Isaiah Hannah PA PA cp Baxter, Heather, RN RN Tanesha Henry ra3
--- NOTE | 2024-05-28 09:36 | EDPHYS ---
Physician Documentation [facility] Name: Shan Faye Age: 38 yrs Sex: Male : 1985 Arrival Date: 05/28/2024 Time: 08:40 Bed IW6 Private MD: ED Physician Dai Barker HPI: 05/28 09:30 This 38 yrs old Male presents to ER via Ambulatory with complaints of Foreign cp Body In Ear. 09:30 The patient presents with a foreign body sensation, piece of ear phone. The complaints cp affect the right ear. Onset: The symptoms/episode began/occurred this morning. Associated signs and symptoms: The patient has no apparent associated signs or symptoms. 09:30 Severity of symptoms: in the emergency department the symptoms are unchanged despite cp home interventions. Historical: - Allergies: 09:17 No Known Allergies; hb - PMHx: 09:17 brain disorder; CVA; Seizure; hb - PSHx: 09:17 Cholecystectomy; hb - Immunization history:: Adult Immunizations up to date. - Infectious Disease History:: Denies. - Social history:: Smoking status: Patient denies any tobacco usage or history of. ROS: 09:33 ENT: Positive for right ear canal foreign body, Negative for sore throat, difficulty cp swallowing, difficulty handling secretions, 09:33 Eyes: Negative for injury, pain, redness, and discharge, cp 09:33 Constitutional: Negative for fever, 09:33 Respiratory: Negative for cough, 09:33 Neuro: Negative for headache, 09:33 All other systems are negative, Exam: 09:35 Constitutional: The patient appears in no acute distress, alert, awake, non-toxic, well cp developed, well nourished, 09:35 Head/Face: Normocephalic, atraumatic. cp 09:35 Eyes: Periorbital structures: appear normal, Conjunctiva: normal, no exudate, no injection, Lids and lashes: appear normal, bilaterally, 09:35 ENT: External ear(s): are unremarkable, Ear canal(s): foreign body, a piece of plastic, white colored tip of ear piece, in the right external ear canal, Examination of the other ear shows no obvious abnormality, Nose: is normal, Mouth: Lips: moist, Oral mucosa: moist, Posterior pharynx: Airway: no evidence of obstruction, patent, 09:35 Chest/axilla: Inspection: normal, 09:35 Cardiovascular: Rate: normal, Rhythm: regular, 09:35 Respiratory: the patient does not display signs of respiratory distress, Respirations: normal, no use of accessory muscles, no retractions, labored breathing, is not present, Breath sounds: are clear throughout, Vital Signs: 09:15 BP 154 / 94; Pulse 60; Resp 16; Temp 97.4; Pulse Ox 97% on R/A; Weight 86.18 kg; Height hb 5 ft. 5 in. ; Pain 0/10; 09:15 Body Mass Index 31.62 (86.18 kg, 165.1 cm) hb 09:15 Pain Scale: Adult hb Procedures: 09:40 Foreign Body Removal: piece of plastic, from the right ear canal, by using a hemostat, cp The patient tolerated the removal well. MDM: 09:28 Patient medically screened. cp 09:35 Differential diagnosis: otitis media, otitis externa, ruptured TM, foreign body, cp cerumen impaction. 09:36 Data reviewed: vital signs, nurses notes. cp 09:36 Historians other than the Patient: Parent: mother provides hpi. Counseling: I had a cp detailed discussion with the patient and/or guardian regarding the historical points, exam findings, and any diagnostic results supporting the discharge/admit diagnosis, to return to the emergency department if symptoms worsen or persist or if there are any questions or concerns that arise at home. Response to treatment: the patient's symptoms have resolved after treatment, foreign body removed, and as a result, I will discharge patient. Administered Medications: No medications were administered Disposition Summary: 05/28/24 09:36 Discharge Ordered Notes: Location: Home cp Problem: new cp Symptoms: are resolved cp Condition: Stable cp Diagnosis - Foreign body in right ear, initial encounter cp Followup: cp - With: Private Physician - When: 2 - 3 days - Reason: Worsening of condition Discharge Instructions: - Discharge Summary Sheet cp - Ear Foreign Body cp Forms: - Medication Reconciliation Form cp - Antibiotic Education cp - Prescription Opioid Use cp - Patient Portal Instructions cp - Leadership Thank You Letter cp Signatures: Isaiah Hannah PA PA cp Maria Justice, RN RN
[2024-05-28 09:53] VITALS: BP 154/94; TEMP 97.4; O2SAT 97
== END 2024-05-28 09:49 | disposition home or self-care (01) ==
LOC: ER 08:40
PROC: 09C3XZZ Extirpation of Matter from Right External Auditory Canal, External Approach (ICD-10-PCS; principal; 2024-05-28)
DX: T16.1XXA Foreign body in right ear, initial encounter (principal)
CPT/HCPCS: 99281

== ENCOUNTER 2024-07-06 11:07 | Emergency (ER) | payer OTHER ==
[2024-07-06] MEDS ORDERED: LEVETIRACETAM 500 MG/5 ML VIAL IV ONE (11:31)
[2024-07-06] MEDS ORDERED: NA CHLORIDE 0.9% 100 ML ONE (11:32)
--- NOTE | 2024-07-06 13:50 | EDPHYS ---
Physician Documentation [facility] Name: Shan Faye Age: 38 yrs Sex: Male : 1985 Arrival Date: 07/06/2024 Time: 11:07 Bed 7 Private MD: ED Physician Jose Eduardo Momin HPI: 07/06 11:47 This 38 yrs old Male presents to ER via EMS with complaints of Seizure. rn 11:47 The patient presents with a history of multiple seizures. Seizure onset: today. rn Associated injury: The patient did not suffer any apparent associated injury. Current symptoms: Currently, the patient is not experiencing any symptoms. Patient witnessed to have several seizures today. Did not take his medication this morning. Patient has known epilepsy. No trauma. 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 Historical: - Allergies: 11:24 No Known Allergies; aa5 - Home Meds: 11:24 Fycompa 8 mg Oral tablet 1 tab every morning [Active]; Keppra 1 Oral tablet [Active]; aa5 divalproex 500 mg Oral Tablet 2 times per day [Active]; BuSpar Oral 15 mg twice a day for Anxiety [Active]; - PMHx: 11:18 Anxiety; brain disorder; CVA; Seizure; aa5 - PSHx: 11:18 Cholecystectomy; aa5 - Immunization history:: Adult Immunizations unknown. - Infectious Disease History:: Denies. - Social history:: Smoking status: Patient denies any tobacco usage or history of. - Family history:: not pertinent. - Hospitalizations: : No recent hospitalization is reported. ROS: 11:47 Constitutional: Negative for fever, chills, and weight loss, Neck: Negative for injury, rn pain, and swelling, Cardiovascular: Negative for chest pain, palpitations, and edema, Respiratory: Negative for shortness of breath, cough, wheezing, and pleuritic chest pain, Abdomen/GI: Negative for abdominal pain, nausea, vomiting, diarrhea, and constipation, MS/Extremity: Negative for injury and deformity, Skin: Negative for injury, rash, and discoloration, Neuro: Positive for mild headache and seizure Exam: 11:47 Constitutional: This is a well developed, well nourished patient who is awake, alert, rn and in no acute distress. Head/Face: Normocephalic, atraumatic. Eyes: Pupils equal round and reactive to light, extra-ocular motions intact Neck: No midline cervical tenderness Cardiovascular: Regular rate and rhythm. No pulse deficits. Respiratory: No increased work of breathing, no retractions or nasal flaring. Abdomen/GI: Soft, nontender MS/ Extremity: Pulses equal, no cyanosis. Neuro: Awake and alert, GCS 15 Vital Signs: 11:18 BP 155 / 103; Pulse 80; Resp 16 S; Temp 97.8(TE); Pulse Ox 94% on R/A; Weight 86.18 kg aa5 (R); Height 5 ft. 5 in. (R); 12:30 BP 141 / 105; Pulse 65; Resp 18 S; Pulse Ox 98% on R/A; aa5 13:30 BP 146 / 99; Pulse 66; Resp 18 S; Temp 97.5(TE); Pulse Ox 98% on R/A; aa5 11:18 Body Mass Index 31.62 (86.18 kg, 165.1 cm) aa5 MDM: 11:12 Patient medically screened. rn 13:48 Differential diagnosis: seizure. Data reviewed: vital signs, nurses notes, old medical rn records, and as a result, I will discharge patient. Care significantly affected by the following chronic conditions: Seizures. Counseling: I had a detailed discussion with the patient and/or guardian regarding the historical points, exam findings, and any diagnostic results supporting the discharge/admit diagnosis, the need for outpatient follow up, to return to the emergency department if symptoms worsen or persist or if there are any questions or concerns that arise at home. Response to treatment: the patient's symptoms have markedly improved after treatment, the patient's condition has returned to base line, the patient is now symptom free, and as a result, I will discharge patient. Special discussion: I discussed with the patient/guardian in detail that at this point there is no indication for admission to the hospital. It is understood, however, that if the symptoms persist or worsen the patient needs to return immediately for re-evaluation. 07/06 11:22 Order name: IV Start; Complete Time: 11:28 rn Administered Medications: 11:34 Drug: Keppra IV 1000 mg IV at calculated rate once Route: IV; Rate: calculated rate; aa5 Site: right wrist; 11:49 Follow up: Response: No adverse reaction; IV Status: Completed infusion aa5 Disposition Summary: 07/06/24 13:50 Discharge Ordered Notes: Location: Home rn Problem: new rn Symptoms: have improved rn Condition: Stable rn Diagnosis - Epileptic seizures related to external causes, not intractable rn Followup: rn - With: Private Physician - When: As needed - Reason: Recheck today's complaints, Re-evaluation by your physician Discharge Instructions: - Discharge Summary Sheet rn - Seizure, Adult rn Forms: - Medication Reconciliation Form rn - Antibiotic biology internship - Prescription Opioid Use rn - Patient Portal Instructions rn - Leadership Thank You Letter rn Signatures: Jose Eduardo Momin MD MD rn Calderon, Audri RN RN aa5
--- NOTE | 2024-07-06 13:50 | ER ---
Nurse's Notes [facility] Name: Shan Faye Age: 38 yrs Sex: Male : 1985 Arrival Date: 07/06/2024 Time: 11:07 Bed 7 Private MD: Diagnosis: Epileptic seizures related to external causes, not intractable Presentation: 07/06 11:18 Acuity: PAULINE 3 aa5 11:18 Onset of symptoms was July 06, 2024. aa5 11:18 Chief complaint: EMS states: Pt's neighbor reported pt had approximately 5 seizures aa5 within 10 minutes. EMS reports 1 seizure en route and pt had 1 seizure upon arrival to ER lasting approximately 10 seconds. 11:18 Coronavirus screen: At this time, the client does not indicate any symptoms associated aa5 with coronavirus-19. Ebola Screen: Patient denies travel to an Ebola-affected area in the 21 days before illness onset. Initial Sepsis Screen: Does the patient meet any 2 criteria? No. Patient's initial sepsis screen is negative. Does the patient have a suspected source of infection? No. Patient's initial sepsis screen is negative. Risk Assessment: Do you want to hurt yourself or someone else? Patient reports no desire to harm self or others. 11:18 Method Of Arrival: EMS: [facility] aa5 Historical: - Allergies: 11:24 No Known Allergies; aa5 - Home Meds: 11:24 Fycompa 8 mg Oral tablet 1 tab every morning [Active]; Keppra 1 Oral tablet [Active]; aa5 divalproex 500 mg Oral Tablet 2 times per day [Active]; BuSpar Oral 15 mg twice a day for Anxiety [Active]; - PMHx: 11:18 Anxiety; brain disorder; CVA; Seizure; aa5 - PSHx: 11:18 Cholecystectomy; aa5 - Immunization history:: Adult Immunizations unknown. - Infectious Disease History:: Denies. - Social history:: Smoking status: Patient denies any tobacco usage or history of. - Family history:: not pertinent. - Hospitalizations: : No recent hospitalization is reported. Screenin:[address] [facility] ED Fall Risk Assessment (Adult) History of falling in the last 3 months, aa5 including since admission Yes- fall prone (multiple falls) (3 pts) Confusion or Disorientation No (0 pts) Intoxicated or Sedated No (0 pts) Impaired Gait No (0 pts) Mobility Assist Device Used No (0 pt) Altered Elimination No (0 pt) Score/Fall Risk Level 3 or more points = High Risk Oriented to surroundings, Maintained a safe environment, Educated pt \T\ family on fall prevention, incl call for assistance when getting out of bed. Abuse screen: Denies threats or abuse. Nutritional screening: No deficits noted. Tuberculosis screening: No symptoms or risk factors identified. Assessment: 11:18 General: Appears comfortable, Behavior is calm, cooperative. Pain: Denies pain. Neuro: aa5 Level of Consciousness is awake, alert, obeys commands, Oriented to person, place, time, situation. Cardiovascular: Patient's skin is warm and dry. Respiratory: Airway is patent Respiratory effort is even, unlabored, Respiratory pattern is regular, symmetrical. Respiratory: Denies cough, shortness of breath. GI: No signs and/or symptoms were reported involving the gastrointestinal system. Patient currently denies nausea, vomiting. : No signs and/or symptoms were reported regarding the genitourinary system. EENT: No signs and/or symptoms were reported regarding the EENT system. Derm: Skin is pink, warm \T\ dry. Musculoskeletal: Range of motion: intact in all extremities. 12:10 Reassessment: Patient is alert, oriented x 3, equal unlabored respirations, skin aa5 warm/dry/pink. 13:30 Reassessment: Patient is alert, oriented x 3, equal unlabored respirations, skin aa5 warm/dry/pink. Vital Signs: 11:18 BP 155 / 103; Pulse 80; Resp 16 S; Temp 97.8(TE); Pulse Ox 94% on R/A; Weight 86.18 kg aa5 (R); Height 5 ft. 5 in. (R); 12:30 BP 141 / 105; Pulse 65; Resp 18 S; Pulse Ox 98% on R/A; aa5 13:30 BP 146 / 99; Pulse 66; Resp 18 S; Temp 97.5(TE); Pulse Ox 98% on R/A; aa5 11:18 Body Mass Index 31.62 (86.18 kg, 165.1 cm) aa5 ED Course: 11:08 Patient arrived in ED. bc6 11:12 Jose Eduardo Momin MD is Attending Physician. rn 11:18 Chloe Hernandez, RN is Primary Nurse. aa5 11:18 Arm band placed on Patient placed in an exam room, on a stretcher. aa5 11:18 Patient has correct armband on for positive identification. Bed in low position. Call aa5 light in reach. Side rails up X2. Pulse ox on. NIBP on. 11:24 Triage completed. aa5 11:28 Inserted saline lock: 20 gauge in right wrist, using aseptic technique. Flushed with 10 aa5 mL NS. 11:39 No provider procedures requiring assistance completed. aa5 14:00 IV discontinued, intact, bleeding controlled, No redness/swelling at site. Pressure aa5 dressing applied. Administered Medications: 11:34 Drug: Keppra IV 1000 mg IV at calculated rate once Route: IV; Rate: calculated rate; aa5 Site: right wrist; 11:49 Follow up: Response: No adverse reaction; IV Status: Completed infusion aa5 Medication: 11:39 VIS not applicable for this client. aa5 Outcome: 13:50 Discharge ordered by . rn 14:00 Discharged to home ambulatory, with mother aa5 14:00 Condition: stable 14:00 Discharge instructions given to patient, and Pt's mother Instructed on discharge instructions, follow up and referral plans. Demonstrated understanding of instructions, follow-up care, 14:08 Patient left the ED. rs5 Signatures: Jose Eduardo Momin MD MD rn Calderon, Audri, RN RN aa5 Jeanmarie Martin RN RN rs5 Fannie Liu 6 Corrections: (The following items were deleted from the chart) 14:10 13:30 IV discontinued, intact, bleeding controlled, No redness/swelling at site. aa5 Pressure dressing applied, aa5
[2024-07-07 03:08] VITALS: TEMP 97.8
[2024-07-07 03:09] VITALS: BP 141/105; O2SAT 98
== END 2024-07-06 14:08 | disposition home or self-care (01) ==
LOC: ER 11:07
DX: G40.509 Epileptic seizures related to external causes, not intractable, without status epilepticus (principal); F41.9 Anxiety disorder, unspecified; Z86.73 Personal history of transient ischemic attack (TIA), and cerebral infarction without residual deficits
CPT/HCPCS: 96374; 99284; J1953

== ENCOUNTER 2024-10-28 12:18 | Emergency (ER) | payer OTHER ==
[2024-10-28] MEDS ORDERED: LEVETIRACETAM 500 MG/5 ML VIAL IV ONE (13:23)
[2024-10-28] MEDS ORDERED: NA CHLORIDE 0.9% 100 ML ONE (13:24)
[2024-10-28 13:40] LABS: Sqamous Epithelial None Seen /HPF (None Seen); Urine Bacteria None Seen /HPF (<20); Urine Bilirubin NEGATIVE (Negative); Urine Blood Negative (Negative); Urine Clarity Clear (Clear); Urine Color Yellow (Yellow); Urine Culture Reflex Order NOT NEEDED; Urine Glucose NEGATIVE (Negative); Urine Ketones 1+ (Negative); Urine Microscopic Reflex YN ORDER UMIC; Urine Mucus 1+ /HPF (None Seen); Urine Nitrite NEGATIVE (Negative); Urine Protein TRACE (Negative); Urine RBC <5 /HPF (None Seen); Urine Urobilinogen Normal (Normal); Urine WBC <5 /HPF (<5)
[2024-10-28 13:40] LABS: Albumin 3.7 g/dL (3.4-5.0); Albumin/Globulin Ratio 1.1 (1.1-1.8); Anion Gap 9.7 mEq/L (5.0-15.0); Bilirubin Total 0.9 mg/dL (0.2-1.0); Globulin 3.4 g/dL (2.3-3.5); Potassium 3.7 mEq/L (3.5-5.1); Protein, Total 7.1 g/dL (6.4-8.2)
--- NOTE | 2024-10-28 14:15 | EDPHYS ---
Physician Documentation [facility] Name: Shan Faye Age: 39 yrs Sex: Male : 1985 Arrival Date: 10/28/2024 Time: 12:18 Bed 20 Private MD: ED Physician Otoniel Nation HPI: 10/28 15:17 This 39 yrs old Male presents to ER via EMS with complaints of Seizure. kb 15:17 Pt is a 39 year old male who presents for seizure x3 this morning. States he was having kb a lot of anxiety and that normally triggers his seizures. States he hasn't missed any doses of his medication. . Historical: - Allergies: 12:56 No Known Allergies; kj2 - PMHx: 12:56 Anxiety; brain disorder; CVA; Seizure; kj2 - Immunization history:: Adult Immunizations unknown. - Infectious Disease History:: Denies. - Social history:: Smoking status: Patient denies any tobacco usage or history of. ROS: 15:16 Constitutional: As per HPI kb Exam: 15:16 Constitutional: This is a well developed, well nourished patient who is awake, alert, kb and in no acute distress. Head/Face: Normocephalic, atraumatic. ENT: Moist Mucous membranes Cardiovascular: Regular rate Respiratory: Respirations even and unlabored. No increased work of breathing. Talking in full sentences Abdomen/GI: Soft, non-tender. No distention Skin: Warm, dry with normal turgor. Normal color. MS/ Extremity: Pulses equal, no cyanosis. Neurovascular intact. Full, normal range of motion. Neuro: Awake and alert, GCS 15, oriented to person, place, time, and situation. Vital Signs: 12:55 BP 122 / 82; Pulse 76; Resp 20; Temp 97.9; Pulse Ox 100% ; Height 5 ft. 5 in. ; kj2 13:03 Weight 88.45 kg; kj2 13:43 BP 129 / 93; Pulse 61; Resp 18; Pulse Ox 100% on R/A; kj2 14:17 BP 124 / 82; Pulse 60; Resp 18; Temp 98; Pulse Ox 100% on R/A; kj2 [place] Coma Score: 14:18 Eye Response: spontaneous(4). Motor Response: obeys commands(6). Verbal Response: kj2 oriented(5). Total: 15. MDM: 12:33 Medical Screening Exam initiated kb 15:17 Differential diagnosis: cardiac arrhythmia, seizure. Data reviewed: vital signs, nurses kb notes. Historians other than the Patient: EMS: [facility]. Counseling: I had a detailed discussion with the patient and/or guardian regarding the historical points, exam findings, and any diagnostic results supporting the discharge/admit diagnosis, lab results, the need for outpatient follow up, a family practitioner, to return to the emergency department if symptoms worsen or persist or if there are any questions or concerns that arise at home. 10/28 12:34 Order name: CBC with Diff kb 10/28 12:34 Order name: CMP; Complete Time: 13:43 kb 10/28 12:34 Order name: Urinalysis w/ reflexes; Complete Time: 13:43 kb 10/28 12:34 Order name: IV Start; Complete Time: 13:18 kb Administered Medications: 13:15 Drug: Keppra IV 1000 mg IV at calculated rate once Route: IV; Rate: calculated rate; kj2 Site: left antecubital; 14:16 Follow up: Response: No adverse reaction kj2 14:20 Follow up: IV Status: Completed infusion kj2 Disposition: 16:12 Co-signature as Attending Physician, Otoniel Nation MD I reviewed the patient's care rt provided by the Advanced Practice Provider and agree with the diagnosis and treatment plan. Disposition Summary: 10/28/24 14:14 Discharge Ordered Notes: Location: Home kb Condition: Stable kb Diagnosis - Epileptic seizures related to external causes kb Followup: kb - With: Emergency Department - When: As needed - Reason: Worsening of condition Followup: kb - With: Private Physician - When: 2 - 3 days - Reason: Recheck today's complaints, Continuance of care, Re-evaluation by your physician Discharge Instructions: - Discharge Summary Sheet kb - Seizure, Adult, [id number] kb Forms: - Medication Reconciliation Form kb - Antibiotic Education kb - Prescription Opioid Use kb - Patient Portal Instructions kb - Leadership Thank You Letter kb - Work release form kj2 Signatures: Dispatcher [employer] EDMS Britt Ambrocio, LEANDRAC NATI-Otoniel Bhakta MD MD rt Chelle Blackburn RN RN kj2 Corrections: (The following items were deleted from the chart) 12:35 12:35 CBC+H.LAB.BRZ ordered. EDMS EDMS 12:35 12:35 COMPREHENSIVE METABOLIC PANEL+C.LAB.BRZ ordered. EDMS EDMS 12:35 12:35 Urinalysis+U.LAB.BRZ ordered. EDMS EDMS
--- NOTE | 2024-10-28 14:15 | ER ---
Nurse's Notes [facility] Name: Shan Faye Age: 39 yrs Sex: Male : 1985 Arrival Date: 10/28/2024 Time: 12:18 Bed 20 Private MD: Diagnosis: Epileptic seizures related to external causes Presentation: 10/28 12:55 Chief complaint: EMS states: seizure at work witnessed by coworkers. Coronavirus kj2 screen: Client denies travel out of the [place] in the last 14 days. Ebola Screen: No symptoms or risks identified at this time. Initial Sepsis Screen: Does the patient meet any 2 criteria? No. Patient's initial sepsis screen is negative. Does the patient have a suspected source of infection? No. Patient's initial sepsis screen is negative. Risk Assessment: Do you want to hurt yourself or someone else? Patient reports no desire to harm self or others. Onset of symptoms was October 28, 2024. 12:55 Method Of Arrival: EMS: [facility] kj2 12:55 Acuity: PAULINE 3 kj2 Triage Assessment: 12:58 General: see general nurse assessment. kj2 Historical: - Allergies: 12:56 No Known Allergies; kj2 - PMHx: 12:56 Anxiety; brain disorder; CVA; Seizure; kj2 - Immunization history:: Adult Immunizations unknown. - Infectious Disease History:: Denies. - Social history:: Smoking status: Patient denies any tobacco usage or history of. Screenin:58 [facility] ED Fall Risk Assessment (Adult) History of falling in the last 3 months, kj2 including since admission No falls in past 3 months (0 pts) Confusion or Disorientation No (0 pts) Intoxicated or Sedated No (0 pts) Impaired Gait No (0 pts) Mobility Assist Device Used No (0 pt) Altered Elimination No (0 pt) Score/Fall Risk Level 0 - 2 = Low Risk Maintained a safe environment, Hourly rounding (assess needs \T\ fall precautionary measures) done. Abuse screen: Denies threats or abuse. Denies injuries from another. Nutritional screening: No deficits noted. Tuberculosis screening: No symptoms or risk factors identified. Assessment: 12:57 General: Appears in no apparent distress. Behavior is calm, cooperative. Pain: Denies kj2 pain. Neuro: Level of Consciousness is awake, alert, obeys commands, Oriented to person, place, time, situation. Cardiovascular: Respiratory: Airway is patent Respiratory effort is even, unlabored. GI: No signs and/or symptoms were reported involving the gastrointestinal system. : No signs and/or symptoms were reported regarding the genitourinary system. 13:44 Reassessment: Patient appears in no apparent distress at this time. Patient and/or kj2 family updated on plan of care and expected duration. Pain level reassessed. Patient is alert, oriented x 3, equal unlabored respirations, skin warm/dry/pink. 14:17 Reassessment: Patient appears in no apparent distress at this time. Patient and/or kj2 family updated on plan of care and expected duration. Pain level reassessed. Patient is alert, oriented x 3, equal unlabored respirations, skin warm/dry/pink. Vital Signs: 12:55 BP 122 / 82; Pulse 76; Resp 20; Temp 97.9; Pulse Ox 100% ; Height 5 ft. 5 in. ; kj2 13:03 Weight 88.45 kg; kj2 13:43 BP 129 / 93; Pulse 61; Resp 18; Pulse Ox 100% on R/A; kj2 14:17 BP 124 / 82; Pulse 60; Resp 18; Temp 98; Pulse Ox 100% on R/A; kj2 [place] Coma Score: 14:18 Eye Response: spontaneous(4). Motor Response: obeys commands(6). Verbal Response: kj2 oriented(5). Total: 15. ED Course: 12:33 Patient arrived in ED. kb 12:33 [facility]C [facility] kb 12:33 Otoniel Nation MD is Attending Physician. kb 12:54 Chelle Blackburn, PILLO is Primary Nurse. kj2 12:56 Triage completed. kj2 12:59 Patient has correct armband on for positive identification. Bed in low position. Call kj2 light in reach. Side rails up X 1. Side rails up X2. Adult w/ patient. Provided Education on: call light. 13:00 Arm band placed on Patient placed in an exam room, on a stretcher. kj2 13:00 No provider procedures requiring assistance completed. kj2 13:18 Inserted saline lock: 20 gauge in left antecubital area, using aseptic technique. Blood kj2 collected. Flushed with 10 mL NS. 13:19 CMP Sent. kj2 13:19 CBC with Diff Sent. kj2 13:44 Seizure precautions initiated. kj2 14:18 IV discontinued, intact, bleeding controlled, No redness/swelling at site. Pressure kj2 dressing applied. Administered Medications: 13:15 Drug: Keppra IV 1000 mg IV at calculated rate once Route: IV; Rate: calculated rate; kj2 Site: left antecubital; 14:16 Follow up: Response: No adverse reaction kj2 14:20 Follow up: IV Status: Completed infusion kj2 Medication: 12:59 VIS not applicable for this client. kj2 Outcome: 14:14 Discharge ordered by MD. wagner 14:18 Discharged to home ambulatory, with family, kj2 14:18 Condition: stable 14:18 Discharge instructions given to patient, family, Instructed on discharge instructions, follow up and referral plans. Demonstrated understanding of instructions, follow-up care, 14:46 Patient left the ED. kj2 Signatures: Britt Ambrocio, NATI-C NATI-Chelle Gtz, RN RN kj2
[2024-10-28 15:19] LABS: Absolute Basophils ND K/uL (0-0.5); Absolute Eosinophils ND K/uL (0-0.5); Absolute Lymphocytes (CBC) ND K/uL (0.7-4.9); Absolute Monocytes ND K/uL (0.1-1.3); Absolute Neutrophil ND K/uL (1.8-8.0); Basophils % ND % (0-1.3); Eosinophils % ND % (0-4.4); Hematocrit ND % (39.6-49.0); Hemoglobin ND g/dL (13.6-17.9); Lymphocytes % ND % (15.3-44.8); MCH ND pg (27.0-35.0); MCHC ND g/dL (32.0-36.0); MCV ND fL (80-100); MPV ND fL (7.6-11.3); Monocytes % ND % (3.3-12.3); Neutrophils % ND % (41.7-73.7); Nucleated RBC Absolute Count ND (0-0); Nucleated Red Blood Cells % ND % (0-0); Platelet Distribution Width ND fL (9.0-17.0); Platelets ND thou/uL (152-406); RBC Red Blood Cell Count ND M/uL (4.33-5.43); Red Cell Distribution Width ND % (12.1-15.2); White Blood Count ND thou/uL (4.3-10.9)
[2024-10-28 16:08] VITALS: O2SAT 100
[2024-10-28 16:11] VITALS: BP 124/82; TEMP 98
== END 2024-10-28 14:46 | disposition home or self-care (01) ==
LOC: ER 12:18
DX: G40.509 Epileptic seizures related to external causes, not intractable, without status epilepticus (principal)
CPT/HCPCS: 96365; 85025; 81001; 36415; 80053; 99284; J1953

== ENCOUNTER 2025-01-26 02:26 | Emergency (ER) | payer MEDICAID ==
--- NOTE | 2025-01-26 02:55 | ER ---
Nurse's Notes [facility] Name: Shan Faye Age: 39 yrs Sex: Male : 1985 Arrival Date: 01/26/2025 Time: 02:26 Bed 3 Private MD: Diagnosis: Auditory hallucinations;Depression;Anxiety disorder, unspecified Presentation: 01/26 02:42 Chief complaint: Patient states: i don't want to take my meds anymore because they lg3 don't work. my psych is relapsing. i want to go to a facility because my mom wont let me live on my own and we argue all the time. denies SI/HI at this time. Coronavirus screen: Client denies travel out of the [place] in the last 14 days. At this time, the client does not indicate any symptoms associated with coronavirus-19. Ebola Screen: No symptoms or risks identified at this time. Initial Sepsis Screen: Does the patient meet any 2 criteria? No. Patient's initial sepsis screen is negative. Does the patient have a suspected source of infection? No. Patient's initial sepsis screen is negative. Risk Assessment: Do you want to hurt yourself or someone else? Patient reports no desire to harm self or others. Onset of symptoms is unknown. 02:42 Method Of Arrival: Ambulatory lg3 02:42 Acuity: PAULINE 3 lg3 Triage Assessment: 02:46 General: Appears in no apparent distress. comfortable, Behavior is calm, cooperative. lg3 Pain: Denies pain. EENT: No signs and/or symptoms were reported regarding the EENT system. Neuro: No deficits noted. [place] Agitation-Sedation Scale (RASS): 0 - Alert and Calm Level of Consciousness is awake, alert, obeys commands, Oriented to person, place, time, situation. Cardiovascular: No deficits noted. Denies chest pain, shortness of breath, Capillary refill < 3 seconds Clubbing of nail beds is absent JVD is absent Patient's skin is warm and dry. Respiratory: No deficits noted. Airway is patent Respiratory effort is even, unlabored, Respiratory pattern is regular, symmetrical. GI: No deficits noted. No signs and/or symptoms were reported involving the gastrointestinal system. Abdomen is round non-distended. : No signs and/or symptoms were reported regarding the genitourinary system. Derm: No deficits noted. No signs and/or symptoms reported regarding the dermatologic system. Skin is intact, is healthy with good turgor, Skin is dry, Skin is normal, Skin temperature is warm. Musculoskeletal: No deficits noted. No signs and/or symptoms reported regarding the musculoskeletal system. Circulation, motion, and sensation intact. Range of motion: intact in all extremities. Historical: - Allergies: 02:46 No Known Allergies; lg3 - Home Meds: 02:46 Keppra 750 mg oral tablet 2 tabs 2 times per day [Active]; lg3 - PMHx: 02:46 Anxiety; brain disorder; CVA; Seizure; HTN (Seizure); lg3 - PSHx: 02:46 Cholecystectomy; lg3 - Immunization history:: Adult Immunizations up to date. - Infectious Disease History:: Denies. - Social history:: Smoking status: Patient denies any tobacco usage or history of. Patient/guardian denies using alcohol, street drugs. - Family history:: not pertinent. - Hospitalizations: : No recent hospitalization is reported. Screenin:38 [facility] ED Fall Risk Assessment (Adult) History of falling in the last 3 months, al5 including since admission No falls in past 3 months (0 pts) Confusion or Disorientation No (0 pts) Intoxicated or Sedated No (0 pts) Impaired Gait No (0 pts) Mobility Assist Device Used No (0 pt) Altered Elimination No (0 pt) Score/Fall Risk Level 0 - 2 = Low Risk Oriented to surroundings, Maintained a safe environment, Hourly rounding (assess needs \\T\\ fall precautionary measures) done. Abuse screen: Denies threats or abuse. Denies injuries from another. Nutritional screening: No deficits noted. Tuberculosis screening: No symptoms or risk factors identified. Assessment: 02:59 General: Appears in no apparent distress. comfortable, Behavior is calm, cooperative. al5 Pain: Denies pain. Neuro: Level of Consciousness is awake, alert, obeys commands, Oriented to person, place, time, situation. Cardiovascular: Capillary refill < 3 seconds Patient's skin is warm and dry. Respiratory: Airway is patent Respiratory effort is even, unlabored, Respiratory pattern is regular, symmetrical. GI: No signs and/or symptoms were reported involving the gastrointestinal system. : No signs and/or symptoms were reported regarding the genitourinary system. EENT: No signs and/or symptoms were reported regarding the EENT system. Derm: Skin is intact, is healthy with good turgor, Skin is pink, warm \\T\\ dry. normal. Musculoskeletal: No signs and/or symptoms reported regarding the musculoskeletal system. 04:52 Reassessment: Patient appears in no apparent distress at this time. No changes from al5 previously documented assessment. Patient and/or family updated on plan of care and expected duration. Pain level reassessed. Patient is alert, oriented x 3, equal unlabored respirations, skin warm/dry/pink. gave report to jamari FERRO at [facility]. Psych: 02:42 [place] Suicide Severity Screening: In the past month, have you wished you were lg3 or wished you could go to sleep and not wake up? Patient responds "No." "In the past month, have you actually had any thoughts of killing yourself?" Patient responds "no." "In your lifetime, have you ever done anything, started to do anything, or prepared to do anything to end your life?" Patient responds "yes." Patient reports suicidal intent occurred greater than 3 months prior. Subjective: Delusions are denied, Hallucinations are denied. Objective: Patient is cooperative, Speech is normal, Affect is appropriate. Interventions: Removed personal items and placed in bag. Safety Checks: Personal items have not been removed. Door is open. No visitors are present at this time. Pt denies substance abuse. Commitment: Patient will be a voluntary commitment. Vital Signs: 02:42 BP 174 / 109; Pulse 79; Resp 16 S; Temp 97.9(O); Pulse Ox 99% on R/A; Weight 84.37 kg lg3 (R); Height 5 ft. 5 in. (R); Pain 0/10; 03:00 BP 160 / 99; Pulse 75; Resp 16; Pulse Ox 99% on R/A; al5 04:00 BP 146 / 94; Pulse 81; Resp 18; Pulse Ox 95% ; al5 05:36 BP 148 / 99; Pulse 73; Resp 18; Pulse Ox 96% ; al5 02:42 Body Mass Index 30.95 (84.37 kg, 165.1 cm) lg3 02:42 Pain Scale: Adult lg3 ED Course: 02:30 Patient arrived in ED. jj6 02:31 Jose Eduardo Momin MD is Attending Physician. rn 02:46 Triage completed. lg3 02:46 Arm band placed on right wrist. lg3 02:59 Alee Romero, PILLO is Primary Nurse. al5 03:00 Patient has correct armband on for positive identification. Bed in low position. Call al5 light in reach. Side rails up X 1. Provided Education on: plan of care. 03:26 Urinalysis w/ reflexes Sent. rv1 03:26 Urine Drug Screen Sent. rv1 03:26 Basic Metabolic Panel Sent. rv1 03:26 CBC with Diff Sent. rv1 03:26 Initial lab(s) drawn, by ED staff, sent to lab. Urine collected: clean catch specimen, rv1 clear. 04:11 Faxed pt clinical's to the following facilities for placement; [facility]. rv1 04:48 No provider procedures requiring assistance completed. al5 04:55 Pt auto-accepted by Dr. Holm to [facility]. rv1 05:35 Patient did not have IV access during this emergency room visit. al5 Administered Medications: 04:20 Drug: Potassium PO Effervescent Tablet 25 mEq PO once; dissolve in 4 ounces of water or al5 juice Route: PO; 05:35 Follow up: Response: No adverse reaction al5 Medication: 03:39 VIS not applicable for this client. al5 Outcome: 02:55 ER care complete, transfer ordered by . rn 05:36 Transferred by [facility]. Note: [facility] 05:36 Condition: stable 05:36 Instructed on the need for transfer, 05:36 Patient left the ED. al5 Signatures: Jose Eduardo Momin MD MD rn Able, Lacie, RN RN lg3 [id number] Yamileth Louise rv1 Alee Romero RN RN al5 Corrections: (The following items were deleted from the chart) 02:56 02:42 Chief complaint: Patient states: i don't want to take my meds anymore because lg3 they don't work. my psych is relapsing. i want to go to a facility because my mom wont let me live on my own lg3
--- NOTE | 2025-01-26 02:56 | EDPHYS ---
Physician Documentation [facility] Name: Shan Faye Age: 39 yrs Sex: Male : 1985 Arrival Date: 01/26/2025 Time: 02: Bed 3 Private MD: ED Physician Jose Eduardo Momin HPI: 01/26 02:52 This 39 yrs old Male presents to ER via Ambulatory with complaints of psychiatric tech eval. 02:52 Patient reports having mental health problems. Patient reports he is hearing voices and rn his mom's been upsetting him, he is afraid he is going to harm his mom or himself. No other acute complaints. Patient reports is supposed to take buspirone and ran out of his meds. Patient would like to be sent to a mental hospital. Historical: - Allergies: 02:46 No Known Allergies; lg3 - Home Meds: 02:46 Keppra 750 mg oral tablet 2 tabs 2 times per day [Active]; lg3 - PMHx: 02:46 Anxiety; brain disorder; CVA; Seizure; HTN (Seizure); lg3 - PSHx: 02:46 Cholecystectomy; lg3 - Immunization history:: Adult Immunizations up to date. - Infectious Disease History:: Denies. - Social history:: Smoking status: Patient denies any tobacco usage or history of. Patient/guardian denies using alcohol, street drugs. - Family history:: not pertinent. - Hospitalizations: : No recent hospitalization is reported. ROS: 02:52 Constitutional: Negative for fever, chills, and weight loss, Neck: Negative for injury, rn pain, and swelling, Cardiovascular: Negative for chest pain, palpitations, and edema, Respiratory: Negative for shortness of breath, cough, wheezing, and pleuritic chest pain, Abdomen/GI: Negative for abdominal pain, nausea, vomiting, diarrhea, and constipation, Back: Negative for injury and pain, MS/Extremity: Negative for injury and deformity, Skin: Negative for injury, rash, and discoloration, Neuro: Negative for headache, weakness, numbness, tingling Exam: 02:52 Constitutional: This is a well developed, well nourished patient who is awake, alert, rn and in no acute distress. Ambulatory to room without assistance or difficulty Respiratory: No increased work of breathing, no retractions or nasal flaring. Neuro: Awake and alert, GCS 15. Normal gait. Vital Signs: 02:42 BP 174 / 109; Pulse 79; Resp 16 S; Temp 97.9(O); Pulse Ox 99% on R/A; Weight 84.37 kg lg3 (R); Height 5 ft. 5 in. (R); Pain 0/10; 03:00 BP 160 / 99; Pulse 75; Resp 16; Pulse Ox 99% on R/A; al5 04:00 BP 146 / 94; Pulse 81; Resp 18; Pulse Ox 95% ; al5 05:36 BP 148 / 99; Pulse 73; Resp 18; Pulse Ox 96% ; al5 02:42 Body Mass Index 30.95 (84.37 kg, 165.1 cm) lg3 02:42 Pain Scale: Adult lg3 MDM: 02:31 Medical Screening Exam initiated rn 02:54 Differential diagnosis: depression, Anxiety, schizophrenia. Data reviewed: vital signs, rn nurses notes, and as a result, I will admit patient. Counseling: I had a detailed discussion with the patient and/or guardian regarding the historical points, exam findings, and any diagnostic results supporting the discharge/admit diagnosis, the need for further work-up and treatment in the hospital. 01/26 02:59 Order name: CBC with Diff; Complete Time: 04:58 rn 01/26 02:59 Order name: Basic Metabolic Panel; Complete Time: 04:58 rn 01/26 02:59 Order name: Urine Drug Screen; Complete Time: 04:58 rn 01/26 03:17 Order name: Urinalysis w/ reflexes; Complete Time: 04:58 rn Administered Medications: 04:20 Drug: Potassium PO Effervescent Tablet 25 mEq PO once; dissolve in 4 ounces of water or al5 juice Route: PO; 05:35 Follow up: Response: No adverse reaction al5 Disposition Summary: 01/26/25 02:55 Transfer Ordered Notes: Transfer Location: Psych Facility rn Reason: Higher level of care rn Condition: Stable rn Problem: an ongoing problem rn Symptoms: have worsened rn Accepting Physician: (01/26/25 05:36) al5 Diagnosis - Auditory hallucinations rn - Depression rn - Anxiety disorder, unspecified rn Forms: - Medication Reconciliation Form rn - SBAR form rn Signatures: Dispatcher [employer] EDMS Momin, Jose Eduardo, MD MD rn Able, Mera, RN RN lg3 Alee Romero RN RN al5 Corrections: (The following items were deleted from the chart) 05:36 02:55 Dr. patricia al5
[2025-01-26 03:59] LABS: Specific Gravity 1.023 (1.005-1.030); Urine Bilirubin NEGATIVE (Negative); Urine Blood Negative (Negative); Urine Clarity Clear (Clear); Urine Color Light-Yellow (Yellow); Urine Glucose TRACE (Negative); Urine Ketones NEGATIVE (Negative); Urine Microscopic Reflex YN NO UMIC; Urine Nitrite NEGATIVE (Negative); Urine Protein NEGATIVE (Negative); Urine Urobilinogen Normal (Normal)
[2025-01-26 04:03] LABS: Absolute Eosinophils 0.1 K/uL (0-0.5); Absolute Lymphocytes (CBC) 2.2 K/uL (0.7-4.9); Absolute Monocytes 0.4 K/uL (0.1-1.3); Absolute Neutrophil 3.5 K/uL (1.8-8.0); Basophils % 0.7 % (0-1.3); Eosinophils % 2.3 % (0-4.4); Hematocrit 42.3 % (39.6-49.0); Hemoglobin 15.2 g/dL (13.6-17.9); Lymphocytes % 34.8 % (15.3-44.8); MCH 29.6 pg (27.0-35.0); MCHC 35.8 g/dL (32.0-36.0); MCV 82.5 fL (80-100); MPV 8.4 fL (7.6-11.3); Neutrophils % 56.2 % (41.7-73.7); Nucleated Red Blood Cells % 0.1 % (0-0); Platelets 244 thou/uL (152-406); RBC Red Blood Cell Count 5.13 M/uL (4.33-5.43); Red Cell Distribution Width 13.7 % (12.1-15.2)
[2025-01-26 04:09] LABS: Anion Gap 10.3 mEq/L (5.0-15.0); Potassium 3.3 mEq/L (3.5-5.1)
[2025-01-26] MEDS ORDERED: POTASSIUM 25 MEQ EFFERV TAB ONE (04:17)
[2025-01-26 04:19] LABS: Barbiturates NEGATIVE (NEGATIVE); Benzodiazepines NEGATIVE (NEGATIVE); Cocaine NEGATIVE (NEGATIVE); METHAMPHETAM NEGATIVE (NEGATIVE); Methadone NEGATIVE (NEGATIVE); Opiates NEGATIVE (NEGATIVE); Phencyclidine NEGATIVE (NEGATIVE); THC Cannibis NEGATIVE (NEGATIVE)
[2025-01-26 05:41] VITALS: TEMP 97.9
[2025-01-26 05:45] VITALS: BP 148/99; O2SAT 96
== END 2025-01-26 05:36 ==
LOC: ER 02:26
DX: R44.0 Auditory hallucinations (principal); F32.A Depression, unspecified; F41.9 Anxiety disorder, unspecified; Z86.73 Personal history of transient ischemic attack (TIA), and cerebral infarction without residual deficits
CPT/HCPCS: 36415; 80048; 80307; 81003; 85025; 99285

== ENCOUNTER 2025-02-22 18:14 | Emergency (ER) | payer MEDICAID, OTHER ==
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
[2025-02-22 19:00] VITALS: BP 137/93; TEMP 97.3; O2SAT 95
== END 2025-02-22 18:31 | disposition home or self-care (01) ==
LOC: ER 18:14
DX: M54.2 Cervicalgia (principal); V49.59XA Passenger injured in collision with other motor vehicles in traffic accident, initial encounter
CPT/HCPCS: 99284